=== PATIENT | female | born 1940 | race Two or more races ===

== ENCOUNTER 2019-01-06 16:25 | Inpatient (IN) | payer BC, MEDICARE ==
[~2019-01-06] VITALS: Ht 157.5 cm; Wt 90.8 kg
--- NOTE | 2019-01-06 16:48 | NUR ---
ED Nurse Note: Pt BIBA from [facility] Conv. due to abnormal abnormal labs: Procalcitonin 0.05, Creatinine 1.95, Sodium 164, Albumin 2.9, and BUN/Creatinine Ratio 31.8. Lab was run yesterday 01/05/19. AOx0, pt on NC 3L. Vital signs stable hemanth. Will cont to monitor.
[2019-01-06] MEDS ORDERED: LISINOPRIL40 MG ORAL (17:01)
[2019-01-06] MEDS ORDERED: CARVEDILOL12.5 MG ORAL (17:01)
[2019-01-06] MEDS ORDERED: CATAPRES0.1 MG ORAL (17:01)
[2019-01-06] MEDS ORDERED: TYLENOL EXTRA500 MG ORAL (17:01)
--- NOTE | 2019-01-06 17:05 | NUR ---
ED Nurse Note: optical technician at bedside for line insertion.
[2019-01-06 17:15] VITALS: BP 116/69
--- NOTE | 2019-01-06 17:22 | Diagnostic Imaging Report ---
Indication: Shortness of breath Technique: One view of the chest Comparison: none Findings: There is a left chest pacemaker, with an orphaned lead as well as epicardial leads. Surgical clips are seen in the left axilla. The heart is borderline enlarged. The lungs demonstrate possible hazy infiltrate in left perihilar region Impression: Possible left perihilar infiltrate Borderline cardiomegaly Other findings as noted
[2019-01-06] MEDS ORDERED: IBUPROFEN600 MG ORAL ×2 (17:25)
[2019-01-06] MEDS ORDERED: ARICEPT10 MG ORAL (17:25)
[2019-01-06] MEDS ORDERED: LEXAPRO10 MG ORAL (17:25)
[2019-01-06] MEDS ORDERED: CARVEDILOL25 MG ORAL (17:25)
[2019-01-06] MEDS ORDERED: LIPITOR10 MG ORAL (17:29)
[2019-01-06] MEDS ORDERED: SEROQUEL25 MG ORAL (17:29)
[2019-01-06] MEDS ORDERED: ISOSORBIDE MONO60 M1 PO (17:29)
[2019-01-06] MEDS ORDERED: FUROSEMIDE40 MG ORAL (17:29)
[2019-01-06 17:56] LABS: HEMATOCRIT 31.9 % (37.0-47.0); HEMOGLOBIN 9.7 G/DL (12.0-16.0); INR 1.1 (0.9-1.1); MEAN CORPUSCULAR VOLUME 104 FL (80-99); PLATELET COUNT 38 K/UL (150-450); RED BLOOD COUNT 3.07 M/UL (4.20-5.40); RED CELL DISTRIBUTION WIDTH 17.3 % (11.6-14.8)
[2019-01-06 18:13] LABS: ALANINE AMINOTRANSFERASE 40 U/L (12-78); ALBUMIN 2.4 G/DL (3.4-5.0); ALBUMIN/GLOBULIN RATIO 0.5 (1.0-2.7); ALKALINE PHOSPHATASE 103 U/L (46-116); ANION GAP 12 mmol/L (5-15); ASPARTATE AMINO TRANSFERASE 41 U/L (15-37); BILIRUBIN,TOTAL 0.7 MG/DL (0.2-1.0); BLOOD UREA NITROGEN 70 mg/dL (7-18); CALCIUM 9.5 MG/DL (8.5-10.1); CARBON DIOXIDE 24 MMOL/L (21-32); CHLORIDE 129 MMOL/L (98-107); CKMB 3.5 NG/ML (0.0-3.6); CREATINE KINASE 28 U/L (26-308); CREATININE 2.3 MG/DL (0.55-1.30); POTASSIUM 3.9 MMOL/L (3.5-5.1)
[2019-01-06 18:14] LABS: SODIUM 165 MMOL/L (136-145)
[2019-01-06 18:23] LABS: APPEARANCE,URINE CLOUDY; BILIRUBIN, URINE NEGATIVE (NEGATIVE); GLUCOSE, URINE (UA) NEGATIVE (NEGATIVE); KETONES,URINE NEGATIVE (NEGATIVE); LEUKOCYTE ESTERASE ,URINE 3+ (NEGATIVE); NITRITE,URINE NEGATIVE (NEGATIVE); PH,URINE 6 (4.5-8.0); PROTEIN,URINE 3+ (NEGATIVE); UROBILINOGEN,URINE 1 MG/DL (0.0-1.0)
[2019-01-06 18:33] LABS: COLOR,URINE YELLOW
--- NOTE | 2019-01-06 18:47 | General Progress Note ---
Subjective Allergies: Coded Allergies: No Known Allergies (Unverified , 01/06/19) Subjective [facility] An independent Hospitalist group, where every patient is our [facility] Internal Medicine and Hospitalist Overnight Note Please contact us at Please text me on Voalte from 8a-6p regarding any patient questions Please text "[email or web address]" on Voalte from 6p-8a Case discussed with ED Physician. Chart, labs, imaging, vitals and other flowsheets reviewed. Patient presents with gen weakness, hypernatremia and pancytopenia. Plan overnight will be admitt o [facility] for q2H Na check and IVF, and neuro monitoring. Pending repeat CT head by ED given history of SDH. Consults called in AM will be neuro, heme onc, and nephro. Full admission orders completed. Full and complete H+P to follow Time of note may not reflect time of encounter. Signed: Migdalia Heller DO [facility] Pager: [phone] Objective Last 24 Hour Vital Signs Date Time Temp Pulse Resp B/P (MAP) Pulse Ox O2 Delivery O2 Flow Rate FiO2 01/06/19 17:15 98.2 71 15 116/69 100 Nasal Cannula 4.0 01/06/19 16:26 98.2 74 18 109/63 98 Nasal Cannula 4.0 Laboratory Tests 01/06/19 17:25: White Blood Count 4.0L, Red Blood Count 3.07L, Hemoglobin 9.7L, Hematocrit 31.9L , Mean Corpuscular Volume 104H, Mean Corpuscular Hemoglobin 31.7H, Mean Corpuscular Hemoglobin Concent 30.4L, Red Cell Distribution Width 17.3H, Platelet Count 38L, Mean Platelet Volume 11.3H, Neutrophils (%) (Auto) , Lymphocytes (%) (Auto) , Monocytes (%) (Auto) , Eosinophils (%) (Auto) , Basophils (%) (Auto) , Neutrophils % (Manual) [Pending], Lymphocytes % (Manual) [Pending], Platelet Estimate [Pending], Platelet Morphology [Pending], Prothrombin Time 11.8H, Prothromb Time International Ratio 1.1, Activated Partial Thromboplast Time 38H, Sodium Level 165*H, Potassium Level 3.9, Chloride Level 129H, Carbon Dioxide Level 24, Anion Gap 12, Blood Urea Nitrogen 70H, Creatinine 2.3H, Estimat Glomerular Filtration Rate , Glucose Level 111H, Lactic Acid Level 1.30, Calcium Level 9.5, Phosphorus Level 4.0, Magnesium Level 2.8H, Total Bilirubin 0.7, Aspartate Amino Transf (AST/SGOT) 41H, Alanine Aminotransferase (ALT/SGPT) 40, Alkaline Phosphatase 103, Total Creatine Kinase 28, Creatine Kinase MB 3.5, Creatine Kinase MB Relative Index 12.5, Troponin I 0.013, Total Protein 7.0, Albumin 2.4L, Globulin 4.6, Albumin/Globulin Ratio 0.5L, Lipase 105 01/06/19 17:35: Urine Color Yellow, Urine Appearance Cloudy, Urine pH 6, Urine Specific [place] 1.015, Urine Protein 3+H, Urine Glucose (UA) Negative, Urine Ketones Negative, Urine Blood 5+H, Urine Nitrite Negative, Urine Bilirubin Negative, Urine Urobilinogen 1H, Urine Leukocyte Esterase 3+H, Urine RBC [Pending], Urine WBC [ Pending], Urine Squamous Epithelial Cells [Pending], Urine Bacteria [Pending] Height (Feet): 5 Height (Inches): 2.00 Weight (Pounds): 140 Migdalia Heller DO Jan 06, 2019 18:47
[2019-01-06 18:57] VITALS: BP 118/95
--- NOTE | 2019-01-06 19:06 | NUR ---
HAND-OFF: Report given to RADAMES Kingsley.
[2019-01-06] MEDS ORDERED: Donepezil 10mg tab ORAL SCH (21:00)
[2019-01-06 21:25] VITALS: BP 118/95
--- NOTE | 2019-01-06 21:25 | NUR ---
ER Nurse Note: Report given to RADAMES Crenshaw in tele for continuity of care. VSS, no signs of distress. IV patent. Pt not complaining of pain, all belongings with pt.
--- NOTE | 2019-01-06 22:00 | NUR ---
NURSE NOTES: RECEIVED TELEPHONE REPORT FROM ULICES CRUM. PT IS X0, NONVERBAL, MOANS DURING MOVEMENT. WHOLESALE PARTS SALESPERSON ON SHOWING AFIB/AFLUTTER/BBB/SR. IMPLANTED DEFIBRILLATOR ON THE LEFT CHEST NOTED; V PACING AND CAPTURING. 2L NC; SATING WELL. ORDER FOR NPO W/ ORAL MEDS. I WILL KEEP PT NPO D/T LETHARGY AND UNABLE TO FOLLOW COMMANDS. PT IS INCONTINENT, PLACED PURWICK. SKIN IS CLEAN AND DRY. SACRAL STAGE 2 APPROX NOTED ALONG W/ RIGHT WRIST/HAND SKIN TEAR. LAC 20G AND LF 24 NOTED. D5 RUNNING AT 70 ML/HR; IV SITE ASYMPTOMATIC. ORDER RECEIVED FROM SURFACE PLATE FINISHER PHYSICIAN. UNABLE TO OBTAIN TEMPERATURE, APPLIED BAIRHUGGER TO RAISE TEMP, OTHERWISE PT ASYMPTOMATIC, RESTING, VSS, APPEARS COMFORTABLE, NO S/S OF DISTRESS. BED IS LOCKED IN LOWEST POSITION, SIDE RAILS X3, BED ALARM ON, CALL RUDOLPH WITHIN REACH. WILL CONTINUE TO MONITOR AND FOLLOW PLAN OF CARE.
--- NOTE | 2019-01-06 23:00 | NUR ---
NURSE NOTES: CALLED AND SPOKE WITH THERAPIST RADIATION PHYSICIAN REGARDING LABS AND PO MEDICATION. WAS TOLD TO NON-ADMIN MEDS FOR NOW. LABS OK PER MD. WILL CONTINUE TO MONITOR AND FOLLOW PLAN OF CARE.
--- NOTE | 2019-01-06 23:42 | Emergency Room Report ---
History of Present Illness General Chief Complaint: Abnormal Labs Source: Family Member, Medical Record Present Illness HPI Patient is a 78-year-old female presented after increased generalized weakness and altered mental status. Patient prior history of subdural hematoma. She was noted to have abnormal laboratory testing was sent to the hospital for further evaluation and treatment. Patient was noted to have hyponatremia on laboratory testing and was sent to the emergency department for further evaluation correction. Patient was noted to be DNR Allergies: Coded Allergies: No Known Allergies (Unverified , 01/06/19) Patient History Past Medical History: see triage record Reviewed Nursing Documentation: PMH: Agreed; PSxH: Agreed Nursing Documentation-PMH Past Medical History: No History, Except For Hx Cardiac Problems: No - CHF Hx Hypertension: Yes History Of Psychiatric Problem: Yes - dementia Review of Systems All Other Systems: limited - by mental status Physical Exam Vital Signs Date Time Temp Pulse Resp B/P (MAP) Pulse Ox O2 Delivery O2 Flow Rate FiO2 01/06/19 16:26 98.2 74 18 109/63 98 Nasal Cannula 4.0 General Appearance: lethargic, Chronically Ill ENT: dry mucus membranes Neck: limited range of motion Respiratory: chest non-tender, crackles Cardiovascular #1: normal inspection Gastrointestinal: normal inspection, non tender Musculoskeletal: normal inspection Neurologic: aphasia, motor weakness Psychiatric: depressed affect Medical Decision Making Diagnostic Impression: Primary Impression: Hypernatremia Additional Impressions: Subdural hematoma Dehydration ER Course Patient presented for generalized weakness. Differential diagnosis included was not limited to anemia, urinary tract infection, electrolyte abnormality, hypothyroidism, myocardial infarction, myasthenia gravis, dehydration, among others. Because of complexity of patient's case laboratory testing and imaging studies were ordered. Patient was noted to have increased confusion and lethargy. CT imaging was ordered and was noted to have some subdural fluid without evident shift or severe mass-effect. Patient was noted to be markedly hyponatremic. Patient was started on IV fluids. Dr. Heller was contacted for [facility] for inpatient management due to primary care group. I discussed the patient's CODE STATUS with patient has been in patient was not to be intubated or have any brain surgery. Labs Test 01/06/19 17:25 01/06/19 17:35 White Blood Count 4.0 K/UL (4.8-10.8) Red Blood Count 3.07 M/UL (4.20-5.40) Hemoglobin 9.7 G/DL (12.0-16.0) Hematocrit 31.9 % (37.0-47.0) Mean Corpuscular Volume 104 FL (80-99) Mean Corpuscular Hemoglobin 31.7 PG (27.0-31.0) Mean Corpuscular Hemoglobin Concent 30.4 G/DL (32.0-36.0) Red Cell Distribution Width 17.3 % (11.6-14.8) Platelet Count 38 K/UL (150-450) Mean Platelet Volume 11.3 FL (6.5-10.1) Neutrophils (%) (Auto) % (45.0-75.0) Lymphocytes (%) (Auto) % (20.0-45.0) Monocytes (%) (Auto) % (1.0-10.0) Eosinophils (%) (Auto) % (0.0-3.0) Basophils (%) (Auto) % (0.0-2.0) Differential Total Cells Counted 100 Neutrophils % (Manual) 81 % (45-75) Lymphocytes % (Manual) 8 % (20-45) Monocytes % (Manual) 7 % (1-10) Eosinophils % (Manual) 1 % (0-3) Basophils % (Manual) 0 % (0-2) Band Neutrophils 3 % (0-8) Platelet Estimate Decreased Platelet Morphology Normal Hypochromasia 1+ Anisocytosis 1+ Prothrombin Time 11.8 SEC (9.30-11.50) Prothromb Time International Ratio 1.1 (0.9-1.1) Activated Partial Thromboplast Time 38 SEC (23-33) Potassium Level 3.9 MMOL/L (3.5-5.1) Chloride Level 129 MMOL/L (98-107) Carbon Dioxide Level 24 MMOL/L (21-32) Anion Gap 12 mmol/L (5-15) Blood Urea Nitrogen 70 mg/dL (7-18) Creatinine 2.3 MG/DL (0.55-1.30) Estimat Glomerular Filtration Rate mL/min (>60) Glucose Level 111 MG/DL (74-106) Lactic Acid Level 1.30 mmol/L (0.4-2.0) Calcium Level 9.5 MG/DL (8.5-10.1) Phosphorus Level 4.0 MG/DL (2.5-4.9) Magnesium Level 2.8 MG/DL (1.8-2.4) Total Bilirubin 0.7 MG/DL (0.2-1.0) Aspartate Amino Transf (AST/SGOT) 41 U/L (15-37) Alanine Aminotransferase (ALT/SGPT) 40 U/L (12-78) Alkaline Phosphatase 103 U/L (46-116) Total Creatine Kinase 28 U/L (26-308) Creatine Kinase MB 3.5 NG/ML (0.0-3.6) Creatine Kinase MB Relative Index 12.5 Troponin I 0.013 ng/mL (0.000-0.056) Total Protein 7.0 G/DL (6.4-8.2) Albumin 2.4 G/DL (3.4-5.0) Globulin 4.6 g/dL Albumin/Globulin Ratio 0.5 (1.0-2.7) Lipase 105 U/L (73-393) Urine Color Yellow Urine Appearance Cloudy Urine pH 6 (4.5-8.0) Urine Specific [place] 1.015 (1.005-1.035) Urine Protein 3+ (NEGATIVE) Urine Glucose (UA) Negative (NEGATIVE) Urine Ketones Negative (NEGATIVE) Urine Blood 5+ (NEGATIVE) Urine Nitrite Negative (NEGATIVE) Urine Bilirubin Negative (NEGATIVE) Urine Urobilinogen 1 MG/DL (0.0-1.0) Urine Leukocyte Esterase 3+ (NEGATIVE) Urine RBC 10-15 /HPF (0 - 2) Urine WBC 5-10 /HPF (0 - 2) Urine Squamous Epithelial Cells Few /LPF (NONE/OCC) Urine Bacteria Many /HPF (NONE) Urine Osmolality 463 mOsm/kg (429-449) Last Vital Signs Date Time Temp Pulse Resp B/P (MAP) Pulse Ox O2 Delivery O2 Flow Rate FiO2 01/06/19 18:57 98.2 70 16 118/95 100 Nasal Cannula 4.0 Status: improved Disposition: HOME, SELF-CARE Condition: Stable Referrals: Bear Herron MD (PCP) Douglas Garcia MD Jan 06, 2019 23:42
[2019-01-07] VITALS: BP 115/72
[2019-01-07] MEDS ORDERED: cefTRIAXone 1 GM in D5W 55 ML IVPB SCH ×2
[2019-01-07 04:00] VITALS: BP 90/52
[2019-01-07 06:12] LABS: HEMATOCRIT 28.8 % (37.0-47.0); HEMOGLOBIN 8.7 G/DL (12.0-16.0); MEAN CORPUSCULAR VOLUME 103 FL (80-99); PLATELET COUNT 34 K/UL (150-450); RED BLOOD COUNT 2.79 M/UL (4.20-5.40); RED CELL DISTRIBUTION WIDTH 17.5 % (11.6-14.8); WHITE BLOOD COUNT 3.9 K/UL (4.8-10.8)
[2019-01-07 07:04] LABS: ANION GAP 10 mmol/L (5-15); BLOOD UREA NITROGEN 70 mg/dL (7-18); CARBON DIOXIDE 24 MMOL/L (21-32); CHLORIDE 129 MMOL/L (98-107); CREATININE 2.3 MG/DL (0.55-1.30); POTASSIUM 3.5 MMOL/L (3.5-5.1)
[2019-01-07 07:07] LABS: SODIUM 163 MMOL/L (136-145)
--- NOTE | 2019-01-07 07:22 | NUR ---
HAND-OFF: Report given to RADAMES CABRAL.
--- NOTE | 2019-01-07 07:30 | NUR ---
NURSE NOTES: Received report from Enio Rojo RN. Patient asleep in bed, responsive to tactile stimuli, nonverbal. Receiving O2 via nasal cannula @ 2 L/min, respirations even and unlabored. Patient NPO at this time. Female external catheter in place and attached to low, continuous suction. Left AC 20g IV site infusing D5W @ 70 cc/hr and left foot 20g saline lock patent and asymptomatic. Ofelia hugger in place. Bed locked in lowest position with side rails up x 3. All needs attended to. Call light within reach. Will continue to monitor.
--- NOTE | 2019-01-07 07:57 | History and Physical ---
History of Present Illness General Date patient seen: Jan 07, 2019 Time patient seen: 07:30 Reason for Hospitalization: Abnormal Labs Present Illness HPI 78 year old woman (DNR/DNI) with history of severe dementia, HTN, CAD, chronic sCHF s/p AICD, suspected CAD, SDH, who presents from [facility] for evaluation of lethargy and hyponatremia. Here she was found to by hypothermic to 93 degrees with lethargy and sodium of 165. She was admitted to [facility] for acute metabolic encephalopathy, severe sepsis, suspected HCAP. This morning patient is lethargic, unable to be aroused, moves extremities to painful stimuli. UInformation obtained from medical record as patient is markedly encephalopathy. Social History: Unable to obtain due to encephalopathy Family History:Unable to obtain due to encephalopathy Allergies: Coded Allergies: No Known Allergies (Unverified , 01/06/19) Medication History Scheduled Atorvastatin Calcium* (Lipitor*), 10 MG ORAL DAILY, (Reported) Carvedilol* (Carvedilol*), 25 MG ORAL BID, (Reported) Donepezil Hcl* (Aricept*), 10 MG ORAL QHS, (Reported) Escitalopram Oxalate* (Lexapro*), 10 MG ORAL DAILY, (Reported) Furosemide* (Lasix*), 40 MG ORAL DAILY, (Reported) Isosorbide Mononitrate (Isosorbide Mononitrate Er), 60 MG PO BID, (Reported) Quetiapine Fumarate* (Seroquel*), 25 MG ORAL THREE TIMES A DAY, (Reported) Scheduled PRN Ibuprofen* (Motrin*), 800 MG ORAL THREE TIMES A DAY PRN for Per rx protocol, ( Reported) Discontinued Medications Acetaminophen* (Tylenol Extra Strength*), 650 MG ORAL Q6H PRN for Mild Pain/ Temp > 100.5, (Reported) Discontinued Reason: Pt stopped taking med Carvedilol* (Carvedilol*), 12.5 MG ORAL EVERY 12 HOURS, (Reported) Discontinued Reason: Prescription changed Clonidine Hcl* (Catapres*), 0.1 MG ORAL EVERY 6 HOURS, (Reported) Discontinued Reason: Pt stopped taking med Lisinopril* (Lisinopril*), 40 MG ORAL DAILY, (Reported) Discontinued Reason: Pt stopped taking med Patient History Healthcare decision maker MYKE MORGAN Resuscitation status Do Not Resuscitate Advanced Directive on File No Review of Systems ROS Narrative Unable to obtain due to encephalopathy Physical Exam General Appearance: lethargic Lines, tubes and drains: peripheral HEENT: normocephalic, atraumatic Neck: normal alignment Respiratory/Chest: lungs clear, normal breath sounds Cardiovascular/Chest: normal peripheral pulses, normal rate Abdomen: non tender, soft, no organomegaly Extremities: non-tender, normal inspection, no calf tenderness Last 24 Hour Vital Signs Date Time Temp Pulse Resp B/P (MAP) Pulse Ox O2 Delivery O2 Flow Rate FiO2 01/07/19 06:00 96.0 01/07/19 04:00 70 01/07/19 04:00 Nasal Cannula 2.0 01/07/19 04:00 70 15 90/52 (65) 97 01/07/19 00:12 Nasal Cannula 2.0 01/07/19 00:00 70 15 115/72 (86) 99 01/07/19 00:00 70 01/07/19 00:00 Nasal Cannula 2.0 01/06/19 22:18 70 01/06/19 21:25 98.2 72 16 118/95 100 Nasal Cannula 2.0 01/06/19 21:25 98.2 72 16 118/95 100 Nasal Cannula 2.0 01/06/19 18:57 98.2 70 16 118/95 100 Nasal Cannula 4.0 01/06/19 17:15 98.2 71 15 116/69 100 Nasal Cannula 4.0 01/06/19 16:26 98.2 74 18 109/63 98 Nasal Cannula 4.0 Intake and Output 01/06/19 01/07/19 19:00 07:00 Intake Total 1000 ml 545 ml Balance 1000 ml 545 ml Intake IV Total 1000 ml 545 ml # Voids 1 2 # Bowel Movements 3 Laboratory Tests Test 01/06/19 17:25 01/06/19 17:35 01/07/19 06:00 White Blood Count 4.0 K/UL (4.8-10.8) L 3.9 K/UL (4.8-10.8) L Red Blood Count 3.07 M/UL (4.20-5.40) L 2.79 M/UL (4.20-5.40) L Hemoglobin 9.7 G/DL (12.0-16.0) L 8.7 G/DL (12.0-16.0) L Hematocrit 31.9 % (37.0-47.0) L 28.8 % (37.0-47.0) L Mean Corpuscular Volume 104 FL (80-99) H 103 FL (80-99) H Mean Corpuscular Hemoglobin 31.7 PG (27.0-31.0) H 31.1 PG (27.0-31.0) H Mean Corpuscular Hemoglobin Concent 30.4 G/DL (32.0-36.0) L 30.1 G/DL (32.0-36.0) L Red Cell Distribution Width 17.3 % (11.6-14.8) H 17.5 % (11.6-14.8) H Platelet Count 38 K/UL (150-450) L 34 K/UL (150-450) L Mean Platelet Volume 11.3 FL (6.5-10.1) H 11.5 FL (6.5-10.1) H Neutrophils (%) (Auto) % (45.0-75.0) % (45.0-75.0) Lymphocytes (%) (Auto) % (20.0-45.0) % (20.0-45.0) Monocytes (%) (Auto) % (1.0-10.0) % (1.0-10.0) Eosinophils (%) (Auto) % (0.0-3.0) % (0.0-3.0) Basophils (%) (Auto) % (0.0-2.0) % (0.0-2.0) Differential Total Cells Counted 100 Neutrophils % (Manual) 81 % (45-75) H Pending Lymphocytes % (Manual) 8 % (20-45) L Pending Monocytes % (Manual) 7 % (1-10) Eosinophils % (Manual) 1 % (0-3) Basophils % (Manual) 0 % (0-2) Band Neutrophils 3 % (0-8) Platelet Estimate Decreased L Pending Platelet Morphology Normal Pending Hypochromasia 1+ Anisocytosis 1+ Prothrombin Time 11.8 SEC (9.30-11.50) H Prothromb Time International Ratio 1.1 (0.9-1.1) Activated Partial Thromboplast Time 38 SEC (23-33) H Sodium Level 165 MMOL/L (136-145) *H Pending 163 MMOL/L (136-145) *H Potassium Level 3.9 MMOL/L (3.5-5.1) 3.5 MMOL/L (3.5-5.1) Chloride Level 129 MMOL/L (98-107) H 129 MMOL/L (98-107) H Carbon Dioxide Level 24 MMOL/L (21-32) 24 MMOL/L (21-32) Anion Gap 12 mmol/L (5-15) 10 mmol/L (5-15) Blood Urea Nitrogen 70 mg/dL (7-18) H 70 mg/dL (7-18) H Creatinine 2.3 MG/DL (0.55-1.30) H 2.3 MG/DL (0.55-1.30) H Estimat Glomerular Filtration Rate mL/min (>60) mL/min (>60) Glucose Level 111 MG/DL (74-106) H 152 MG/DL (74-106) H Lactic Acid Level 1.30 mmol/L (0.4-2.0) Calcium Level 9.5 MG/DL (8.5-10.1) 9.0 MG/DL (8.5-10.1) Phosphorus Level 4.0 MG/DL (2.5-4.9) Magnesium Level 2.8 MG/DL (1.8-2.4) H 2.5 MG/DL (1.8-2.4) H Total Bilirubin 0.7 MG/DL (0.2-1.0) Aspartate Amino Transf (AST/SGOT) 41 U/L (15-37) H Alanine Aminotransferase (ALT/SGPT) 40 U/L (12-78) Alkaline Phosphatase 103 U/L (46-116) Total Creatine Kinase 28 U/L (26-308) Creatine Kinase MB 3.5 NG/ML (0.0-3.6) Creatine Kinase MB Relative Index 12.5 Troponin I 0.013 ng/mL (0.000-0.056) Total Protein 7.0 G/DL (6.4-8.2) Albumin 2.4 G/DL (3.4-5.0) L Globulin 4.6 g/dL Albumin/Globulin Ratio 0.5 (1.0-2.7) L Lipase 105 U/L (73-393) Urine Color Yellow Urine Appearance Cloudy Urine pH 6 (4.5-8.0) Urine Specific [place] 1.015 (1.005-1.035) Urine Protein 3+ (NEGATIVE) H Urine Glucose (UA) Negative (NEGATIVE) Urine Ketones Negative (NEGATIVE) Urine Blood 5+ (NEGATIVE) H Urine Nitrite Negative (NEGATIVE) Urine Bilirubin Negative (NEGATIVE) Urine Urobilinogen 1 MG/DL (0.0-1.0) H Urine Leukocyte Esterase 3+ (NEGATIVE) H Urine RBC 10-15 /HPF (0 - 2) H Urine WBC 5-10 /HPF (0 - 2) H Urine Squamous Epithelial Cells Few /LPF (NONE/OCC) Urine Bacteria Many /HPF (NONE) H Urine Osmolality 463 mOsm/kg (429-449) H Microbiology Date/Time Source Procedure Growth Status 01/06/19 17:35 Urine,Clean Catch Urine Culture - Preliminary Gram Negative Bacillus 1 Resulted Height (Feet): 5 Height (Inches): 2.00 Weight (Pounds): 187 Medications Current Medications Medications (Trade) Dose Ordered Sig/Nuria Route PRN Reason Start Time Stop Time Status Last Admin Dose Admin Atorvastatin Calcium (Lipitor) 10 mg DAILY ORAL 01/07/19 09:00 02/06/19 08:59 Dextrose 1,000 ml @ 70 mls/hr [id number] IV 01/06/19 19:48 02/05/19 19:47 01/06/19 23:07 Dextrose (Dextrose 50%) 25 ml Q30M PRN IV Hypoglycemia 01/06/19 19:00 02/05/19 18:59 Dextrose (Dextrose 50%) 50 ml Q30M PRN IV Hypoglycemia 01/06/19 19:00 02/05/19 18:59 Donepezil HCl (Aricept) 10 mg QHS ORAL 01/06/19 21:00 02/05/19 20:59 Escitalopram Oxalate (Lexapro) 10 mg DAILY ORAL 01/07/19 09:00 02/06/19 08:59 Ibuprofen (Motrin) 800 mg TIDPRN PRN ORAL For Pain 01/06/19 19:00 02/05/19 18:59 Meropenem 1 gm/ Sodium Chloride 55 ml @ 110 mls/hr Q8HR IVPB 01/07/19 08:00 01/12/19 07:59 UNV Quetiapine Fumarate (SEROquel) 25 mg THREE TIMES A DAY ORAL 01/07/19 09:00 02/06/19 08:59 Vancomycin HCl (Vanco rx to dose) 1 ea DAILY PRN MISC Per rx protocol 01/07/19 08:00 02/06/19 07:59 UNV Assessment/Plan Assessment/Plan #Severe Sepsis #Likely HCAP #Acute metabolic encephalopathy superimposed on severe dementia --admit to medical service -broaden IV antibiotics to vanco and meropenem -continue Bare-Hugger -check blood cultures, serial lactate and PCT -stop all antihypertensives -ID consulted #Hypernatremia -continue D5W -Nephrology consulted #Chronic sCHF s/p AICD #Atrial fibrillation #HTN #CAD -hold all anti-hypertensives -consult Cardiology VTE PPx Heparin SC DNR/DNI I spent 70 minutes on this patient's case, and 35 minutes was dedicated to counseling and/or care coordination. Rome Diamond MD Jan 07, 2019 07:57
[2019-01-07 08:00] VITALS: BP 103/47
--- NOTE | 2019-01-07 08:12 | NUR ---
NURSE NOTES: Patient currently NPO, unable to follow commands, hence unsafe to give meds PO. Per Dr. Mederos, patient will not have NGT at this time. Will non-admin meds.
[2019-01-07 08:22] LABS: ALANINE AMINOTRANSFERASE 40 U/L (12-78); ALBUMIN 2.1 G/DL (3.4-5.0); ALKALINE PHOSPHATASE 89 U/L (46-116); ASPARTATE AMINO TRANSFERASE 35 U/L (15-37); BILIRUBIN,DIRECT 0.2 MG/DL (0.0-0.3); BILIRUBIN,TOTAL 0.5 MG/DL (0.2-1.0)
[2019-01-07] MEDS ORDERED: Imdur 30mg tab ORAL SCH (09:00)
[2019-01-07] MEDS ORDERED: Carvedilol 25mg Tab ORAL SCH (09:00)
--- NOTE | 2019-01-07 09:11 | Diagnostic Imaging Report ---
Indications: Altered mental status Technique: Spiral acquisitions obtained through the brain. Angled axial and coronal 5 x 5 mm slices were reconstructed. Total dose length product 1414.54 mGycm. CTDI vol(s) 70.38 mGy. Dose reduction achieved using automated exposure control Comparison: None. Findings: There is a subdural hematoma running along the right side of the falx. This measures approximately 4 mm in thickness, does not result in any significant mass effect. No other evidence of acute intracranial bleed. No mass effect elsewhere. There is age-related enlargement of the ventricles and extra axial CSF spaces. There is a focus of cortical encephalomalacia in the high right parietal lobe. There is periventricular deep white matter chronic ischemic change. The included orbits are unremarkable. There is ethmoid sinus mucosal disease. The calvarium is intact. There is bilateral mastoid disease. Impression: 4 mm thick parafalcine acute subdural hematoma. This does not result in any significant mass effect. Right parietal cortical encephalomalacia, consistent with old infarct Other chronic and age-related changes as described Critical value findings phoned to emergency room by [facility] teleradiology service at 1842 on 01/06/[address] scanner at [facility] is accredited by the [employer] and the scans are performed using protocols designed to limit radiation exposure to as low as reasonably achievable to attain images of sufficient resolution adequate for diagnostic evaluation.
--- NOTE | 2019-01-07 10:33 | NUR ---
REHAB MED PT NOTE CONSULT MARGARETTE CURIEL NOT COMPLTED, PATIENT NOT APPROPRIATE FOR HVAC JOURNEYMAN DURING STAY. DC PT ORDER. GRACE PICHARDO PT DPT Addendum: 01/07/19 at 1034 by GRACE PICHARDO PT PATIENT LETHARGIC AND NO COMMAND FOLLOWING.
[2019-01-07] MEDS ORDERED: Vancomycin 1250mg/D5W 275ml IVPB SCH (11:00)
[2019-01-07 12:00] VITALS: BP 112/42
[2019-01-07] MEDS: Meropenem 500 MG in NS 55 ML IVPB SCH (12:00)
[2019-01-07 12:06] LABS: APPEARANCE,URINE SLIGHTLY CLOUDY; BILIRUBIN, URINE NEGATIVE (NEGATIVE); GLUCOSE, URINE (UA) NEGATIVE (NEGATIVE); KETONES,URINE NEGATIVE (NEGATIVE); LEUKOCYTE ESTERASE ,URINE 3+ (NEGATIVE); NITRITE,URINE NEGATIVE (NEGATIVE); PH,URINE 5 (4.5-8.0); PROTEIN,URINE 2+ (NEGATIVE); UROBILINOGEN,URINE 1 MG/DL (0.0-1.0)
[2019-01-07 12:35] LABS: COLOR,URINE YELLOW
--- NOTE | 2019-01-07 13:51 | Consultation ---
Consult Note Consult Note asked to evaluate for renal failure and electrolyte imbalances Patient is a 78-year-old female presented after increased generalized weakness and altered mental status. Patient prior history of subdural hematoma. She was noted to have abnormal laboratory testing was sent to the hospital for further evaluation and treatment. Patient was noted to have hyponatremia on laboratory testing and was sent to the emergency department for further evaluation correction. Patient was noted to be DNR No Known Allergies (Unverified , 01/06/19) Past Medical History: No History, Except For Hx Cardiac Problems: No - CHF Hx Hypertension: Yes History Of Psychiatric Problem: Yes - dementia Assessment/Plan acute Renal Failure Sepsis / UTI / Pneumonia Acute metabolic Encephalopathy Hypernatremia AICD AT FIB CAD HTN presents with Low BP Anemia DNR DNI Free water administration watch for chf pendleton hold mind altering meds protonix IV DC Motrin !!! Noe Wells MD Jan 07, 2019 13:51
[2019-01-07] MEDS ORDERED: LORazepam Inj 2mg/ml 1ml IV PRN (14:00)
--- NOTE | 2019-01-07 14:38 | NUR ---
INSTALLER INTERIOR ASSEMBLIESCPA TAX 78 YO FEMALE BIBA FROM [facility] TO ER CC POOR ORAL INTAKE SI: SEPSIS,DEHYDRATION, HYPERNATREMIA T. 98.3 HR 74 RR 18 B/P 109/63 4L NC NA 165 BUN 70 CR 2.3 MG 2.8 URINE OS 463 UA+PROTEIN,BLOOD,UROBILINOGEN,WBC,RBC,BACTERIA CXR= POSSIBLE LEFT PERIHILAR INFILTRATES HEAD CT+ 4MM THICK PARAFALCINE ACUTE SUBDURAL HEMATOMA. IS: IV BOLUS NS X 1 LITER ADMITTED TO STEP DOWN @ 2124 STEP DOWN STATUS DCP RETURN TO [facility]
--- NOTE | 2019-01-07 15:10 | NUR ---
ST NOTE: BEDSIDE SWALLOW EVAL/CONSULT RECEIVED BEDSIDE SWALLOW EVAL ORDER CHART REVIEWED PRIOR THE EVALUATION COMPLETED SWALLOW CONSULT PT IS A 78-YEAR-OLD FEMALE(PROBABLY [employer]-SPEAK[employer]) WHO WAS ADMITTED DUE TO SEPSIS AND DEHYDRATION, AMS. PER MD NOTE, SUSPECTED HCAP. DYSPHAGIA RISK FACTORS: AMS, POOR PO INTAKE, FAILURE TO THRIVE, SEVERE DEMENTIA W/VIOLENT BEHAVIOR, HTN, H/O CVA, L CHEST PACEMAKER, CHF, ENCEPHALITIS PER HEAD CT: 8 MM SUBDURAL OVERLYING L PARIETAL LOBE. 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 PER CXR: POSS L PERIHILAR INFILTRATE, AND BORDERLINE CARDIOMEGALY. PLOF: PT RESIDES AT [facility]. PER CHART, PT WAS ON NCS, JUNI MOIST PUREE WITH THIN LIQUIDS AT TSP LEVEL PER CHART, PT IS DNR/DNI, SELECTIVE TX, NO ARTIFICIAL MEANS OF NUTRITION, INCLUDING FEEDING TUBES. (PER PT'S , PT'S WISH DOESN'T WANT ANY TUBE FEEDING). CURRENT STATUS: PT SEEN AT BEDSIDE IN PM. AROUSABLE BUT UNABLE TO MAINTAIN ALERTNESS A PERIOD OF TIME. PT WITH NC(2L). OXYGEN LEVEL: 98%. PER PT'S , PT'S MENTAL STATUS HAS NOT BEEN GOOD. PER MISHA CRUM, PT'S SODIUM IS HIGH(161). 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 UNABLE TO GIVE PO AT THIS TIME. HAS HIGH (SILENT) ASPIRATION RISK SECONDARY TO H/O SEVERE DEMENTIA AND CURRENT POSS L PERIHILAR INFILTRATE. RECOMMENDATIONS: 1. CONTINUE NPO FOR NOW. 2. SKILLED ST SERVICE TO FOLLOW UP TO RE-ASSESS PO READINESS 3. VIDEOSWALLOW STUDY IF NEEDED. D/W MISHA CRUM. POSTED NPO SIGN.
[2019-01-07 16:00] VITALS: BP 127/65
--- NOTE | 2019-01-07 16:48 | Cardiac Electrophysiology PN ---
Subjective Subjective [id number] Objective Last 24 Hour Vital Signs Date Time Temp Pulse Resp B/P (MAP) Pulse Ox O2 Delivery O2 Flow Rate FiO2 01/07/19 16:00 Nasal Cannula 2.0 01/07/19 12:00 Nasal Cannula 2.0 01/07/19 12:00 96.4 70 19 112/42 (65) 98 01/07/19 12:00 70 01/07/19 08:00 98.1 70 18 103/47 (65) 96 01/07/19 08:00 Nasal Cannula 2.0 01/07/19 08:00 70 01/07/19 06:00 96.0 01/07/19 04:00 70 01/07/19 04:00 Nasal Cannula 2.0 01/07/19 04:00 70 15 90/52 (65) 97 01/07/19 00:12 Nasal Cannula 2.0 01/07/19 00:00 70 15 115/72 (86) 99 01/07/19 00:00 70 01/07/19 00:00 Nasal Cannula 2.0 01/06/19 22:18 70 01/06/19 21:25 98.2 72 16 118/95 100 Nasal Cannula 2.0 01/06/19 21:25 98.2 72 16 118/95 100 Nasal Cannula 2.0 01/06/19 18:57 98.2 70 16 118/95 100 Nasal Cannula 4.0 01/06/19 17:15 98.2 71 15 116/69 100 Nasal Cannula 4.0 Intake and Output 01/06/19 01/07/19 19:00 07:00 Intake Total 1000 ml 615 ml Balance 1000 ml 615 ml Intake IV Total 1000 ml 615 ml # Voids 1 2 # Bowel Movements 3 Laboratory Tests Test 01/06/19 17:25 01/06/19 17:35 01/07/19 06:00 01/07/19 08:55 White Blood Count 4.0 K/UL (4.8-10.8) L 3.9 K/UL (4.8-10.8) L Red Blood Count 3.07 M/UL (4.20-5.40) L 2.79 M/UL (4.20-5.40) L Hemoglobin 9.7 G/DL (12.0-16.0) L 8.7 G/DL (12.0-16.0) L Hematocrit 31.9 % (37.0-47.0) L 28.8 % (37.0-47.0) L Mean Corpuscular Volume 104 FL (80-99) H 103 FL (80-99) H Mean Corpuscular Hemoglobin 31.7 PG (27.0-31.0) H 31.1 PG (27.0-31.0) H Mean Corpuscular Hemoglobin Concent 30.4 G/DL (32.0-36.0) L 30.1 G/DL (32.0-36.0) L Red Cell Distribution Width 17.3 % (11.6-14.8) H 17.5 % (11.6-14.8) H Platelet Count 38 K/UL (150-450) L 34 K/UL (150-450) L Mean Platelet Volume 11.3 FL (6.5-10.1) H 11.5 FL (6.5-10.1) H Neutrophils (%) (Auto) % (45.0-75.0) % (45.0-75.0) Lymphocytes (%) (Auto) % (20.0-45.0) % (20.0-45.0) Monocytes (%) (Auto) % (1.0-10.0) % (1.0-10.0) Eosinophils (%) (Auto) % (0.0-3.0) % (0.0-3.0) Basophils (%) (Auto) % (0.0-2.0) % (0.0-2.0) Differential Total Cells Counted 100 100 Neutrophils % (Manual) 81 % (45-75) H 92 % (45-75) H Lymphocytes % (Manual) 8 % (20-45) L 5 % (20-45) L Monocytes % (Manual) 7 % (1-10) 3 % (1-10) Eosinophils % (Manual) 1 % (0-3) 0 % (0-3) Basophils % (Manual) 0 % (0-2) 0 % (0-2) Band Neutrophils 3 % (0-8) 0 % (0-8) Platelet Estimate Decreased L Decreased L Platelet Morphology Normal Normal Hypochromasia 1+ Anisocytosis 1+ 1+ Prothrombin Time 11.8 SEC (9.30-11.50) H Prothromb Time International Ratio 1.1 (0.9-1.1) Activated Partial Thromboplast Time 38 SEC (23-33) H Sodium Level 165 MMOL/L (136-145) *H Pending 163 MMOL/L (136-145) *H 162 MMOL/L (136-145) *H Potassium Level 3.9 MMOL/L (3.5-5.1) 3.5 MMOL/L (3.5-5.1) Chloride Level 129 MMOL/L (98-107) H 129 MMOL/L (98-107) H Carbon Dioxide Level 24 MMOL/L (21-32) 24 MMOL/L (21-32) Anion Gap 12 mmol/L (5-15) 10 mmol/L (5-15) Blood Urea Nitrogen 70 mg/dL (7-18) H 70 mg/dL (7-18) H Creatinine 2.3 MG/DL (0.55-1.30) H 2.3 MG/DL (0.55-1.30) H Estimat Glomerular Filtration Rate mL/min (>60) mL/min (>60) Glucose Level 111 MG/DL (74-106) H 152 MG/DL (74-106) H Lactic Acid Level 1.30 mmol/L (0.4-2.0) Calcium Level 9.5 MG/DL (8.5-10.1) 9.0 MG/DL (8.5-10.1) Phosphorus Level 4.0 MG/DL (2.5-4.9) Magnesium Level 2.8 MG/DL (1.8-2.4) H 2.5 MG/DL (1.8-2.4) H Total Bilirubin 0.7 MG/DL (0.2-1.0) 0.5 MG/DL (0.2-1.0) Aspartate Amino Transf (AST/SGOT) 41 U/L (15-37) H 35 U/L (15-37) Alanine Aminotransferase (ALT/SGPT) 40 U/L (12-78) 40 U/L (12-78) Alkaline Phosphatase 103 U/L (46-116) 89 U/L (46-116) Total Creatine Kinase 28 U/L (26-308) Creatine Kinase MB 3.5 NG/ML (0.0-3.6) Creatine Kinase MB Relative Index 12.5 Troponin I 0.013 ng/mL (0.000-0.056) Total Protein 7.0 G/DL (6.4-8.2) 6.2 G/DL (6.4-8.2) L Albumin 2.4 G/DL (3.4-5.0) L 2.1 G/DL (3.4-5.0) L Globulin 4.6 g/dL Albumin/Globulin Ratio 0.5 (1.0-2.7) L Lipase 105 U/L (73-393) Urine Color Yellow Urine Appearance Cloudy Urine pH 6 (4.5-8.0) Urine Specific [place] 1.015 (1.005-1.035) Urine Protein 3+ (NEGATIVE) H Urine Glucose (UA) Negative (NEGATIVE) Urine Ketones Negative (NEGATIVE) Urine Blood 5+ (NEGATIVE) H Urine Nitrite Negative (NEGATIVE) Urine Bilirubin Negative (NEGATIVE) Urine Urobilinogen 1 MG/DL (0.0-1.0) H Urine Leukocyte Esterase 3+ (NEGATIVE) H Urine RBC 10-15 /HPF (0 - 2) H Urine WBC 5-10 /HPF (0 - 2) H Urine Squamous Epithelial Cells Few /LPF (NONE/OCC) Urine Bacteria Many /HPF (NONE) H Urine Osmolality 463 mOsm/kg (429-449) H Macrocytosis 1+ Uric Acid 11.4 MG/DL (2.6-7.2) H Direct Bilirubin 0.2 MG/DL (0.0-0.3) C-Reactive Protein, Quantitative 15.2 mg/dL (0.00-0.90) H Test 01/07/19 10:50 01/07/19 11:30 Sodium Level 161 MMOL/L (136-145) *H Urine Color Yellow Urine Appearance Slightly cloudy Urine pH 5 (4.5-8.0) Urine Specific [place] 1.015 (1.005-1.035) Urine Protein 2+ (NEGATIVE) H Urine Glucose (UA) Negative (NEGATIVE) Urine Ketones Negative (NEGATIVE) Urine Blood 5+ (NEGATIVE) H Urine Nitrite Negative (NEGATIVE) Urine Bilirubin Negative (NEGATIVE) Urine Urobilinogen 1 MG/DL (0.0-1.0) H Urine Leukocyte Esterase 3+ (NEGATIVE) H Urine RBC 2-4 /HPF (0 - 2) H Urine WBC 30-40 /HPF (0 - 2) H Urine Squamous Epithelial Cells Few /LPF (NONE/OCC) Urine Bacteria Few /HPF (NONE) Urine Random Sodium 42 mmol/L (20-110) Microbiology Date/Time Source Procedure Growth Status 01/06/19 17:35 Urine,Clean Catch Urine Culture - Preliminary Gram Negative Bacillus 1 Resulted Gabe Hi MD Jan 07, 2019 16:48
--- NOTE | 2019-01-07 17:09 | Infectious Diseases Prog Note ---
Assessment/Plan Assessment/Plan Full consult dictated: A) 1) sepsis, ams, leukopenia 2) leukopenia, pancytopenia 3) gram neg uti 4) pneumonia - ? hcap, ? aspiration, ? cap 5) pmh noted P) 1) meropenem and vancomycin 2) check cultures, labs and chest x-ray 3) thank you Subjective Allergies: Coded Allergies: No Known Allergies (Unverified , 01/06/19) Objective Vital Signs Last 24 Hour Vital Signs Date Time Temp Pulse Resp B/P (MAP) Pulse Ox O2 Delivery O2 Flow Rate FiO2 01/07/19 16:00 Nasal Cannula 2.0 01/07/19 12:00 Nasal Cannula 2.0 01/07/19 12:00 96.4 70 19 112/42 (65) 98 01/07/19 12:00 70 01/07/19 08:00 98.1 70 18 103/47 (65) 96 01/07/19 08:00 Nasal Cannula 2.0 01/07/19 08:00 70 01/07/19 06:00 96.0 01/07/19 04:00 70 01/07/19 04:00 Nasal Cannula 2.0 01/07/19 04:00 70 15 90/52 (65) 97 01/07/19 00:12 Nasal Cannula 2.0 01/07/19 00:00 70 15 115/72 (86) 99 01/07/19 00:00 70 01/07/19 00:00 Nasal Cannula 2.0 01/06/19 22:18 70 01/06/19 21:25 98.2 72 16 118/95 100 Nasal Cannula 2.0 01/06/19 21:25 98.2 72 16 118/95 100 Nasal Cannula 2.0 01/06/19 18:57 98.2 70 16 118/95 100 Nasal Cannula 4.0 01/06/19 17:15 98.2 71 15 116/69 100 Nasal Cannula 4.0 Height (Feet): 5 Height (Inches): 2.00 Weight (Pounds): 187 Microbiology Date/Time Source Procedure Growth Status 01/06/19 17:35 Urine,Clean Catch Urine Culture - Preliminary Gram Negative Bacillus 1 Resulted Laboratory Tests Test 01/06/19 17:25 01/06/19 17:35 01/07/19 06:00 01/07/19 08:55 White Blood Count 4.0 K/UL (4.8-10.8) L 3.9 K/UL (4.8-10.8) L Red Blood Count 3.07 M/UL (4.20-5.40) L 2.79 M/UL (4.20-5.40) L Hemoglobin 9.7 G/DL (12.0-16.0) L 8.7 G/DL (12.0-16.0) L Hematocrit 31.9 % (37.0-47.0) L 28.8 % (37.0-47.0) L Mean Corpuscular Volume 104 FL (80-99) H 103 FL (80-99) H Mean Corpuscular Hemoglobin 31.7 PG (27.0-31.0) H 31.1 PG (27.0-31.0) H Mean Corpuscular Hemoglobin Concent 30.4 G/DL (32.0-36.0) L 30.1 G/DL (32.0-36.0) L Red Cell Distribution Width 17.3 % (11.6-14.8) H 17.5 % (11.6-14.8) H Platelet Count 38 K/UL (150-450) L 34 K/UL (150-450) L Mean Platelet Volume 11.3 FL (6.5-10.1) H 11.5 FL (6.5-10.1) H Neutrophils (%) (Auto) % (45.0-75.0) % (45.0-75.0) Lymphocytes (%) (Auto) % (20.0-45.0) % (20.0-45.0) Monocytes (%) (Auto) % (1.0-10.0) % (1.0-10.0) Eosinophils (%) (Auto) % (0.0-3.0) % (0.0-3.0) Basophils (%) (Auto) % (0.0-2.0) % (0.0-2.0) Differential Total Cells Counted 100 100 Neutrophils % (Manual) 81 % (45-75) H 92 % (45-75) H Lymphocytes % (Manual) 8 % (20-45) L 5 % (20-45) L Monocytes % (Manual) 7 % (1-10) 3 % (1-10) Eosinophils % (Manual) 1 % (0-3) 0 % (0-3) Basophils % (Manual) 0 % (0-2) 0 % (0-2) Band Neutrophils 3 % (0-8) 0 % (0-8) Platelet Estimate Decreased L Decreased L Platelet Morphology Normal Normal Hypochromasia 1+ Anisocytosis 1+ 1+ Prothrombin Time 11.8 SEC (9.30-11.50) H Prothromb Time International Ratio 1.1 (0.9-1.1) Activated Partial Thromboplast Time 38 SEC (23-33) H Sodium Level 165 MMOL/L (136-145) *H Pending 163 MMOL/L (136-145) *H 162 MMOL/L (136-145) *H Potassium Level 3.9 MMOL/L (3.5-5.1) 3.5 MMOL/L (3.5-5.1) Chloride Level 129 MMOL/L (98-107) H 129 MMOL/L (98-107) H Carbon Dioxide Level 24 MMOL/L (21-32) 24 MMOL/L (21-32) Anion Gap 12 mmol/L (5-15) 10 mmol/L (5-15) Blood Urea Nitrogen 70 mg/dL (7-18) H 70 mg/dL (7-18) H Creatinine 2.3 MG/DL (0.55-1.30) H 2.3 MG/DL (0.55-1.30) H Estimat Glomerular Filtration Rate mL/min (>60) mL/min (>60) Glucose Level 111 MG/DL (74-106) H 152 MG/DL (74-106) H Lactic Acid Level 1.30 mmol/L (0.4-2.0) Calcium Level 9.5 MG/DL (8.5-10.1) 9.0 MG/DL (8.5-10.1) Phosphorus Level 4.0 MG/DL (2.5-4.9) Magnesium Level 2.8 MG/DL (1.8-2.4) H 2.5 MG/DL (1.8-2.4) H Total Bilirubin 0.7 MG/DL (0.2-1.0) 0.5 MG/DL (0.2-1.0) Aspartate Amino Transf (AST/SGOT) 41 U/L (15-37) H 35 U/L (15-37) Alanine Aminotransferase (ALT/SGPT) 40 U/L (12-78) 40 U/L (12-78) Alkaline Phosphatase 103 U/L (46-116) 89 U/L (46-116) Total Creatine Kinase 28 U/L (26-308) Creatine Kinase MB 3.5 NG/ML (0.0-3.6) Creatine Kinase MB Relative Index 12.5 Troponin I 0.013 ng/mL (0.000-0.056) Total Protein 7.0 G/DL (6.4-8.2) 6.2 G/DL (6.4-8.2) L Albumin 2.4 G/DL (3.4-5.0) L 2.1 G/DL (3.4-5.0) L Globulin 4.6 g/dL Albumin/Globulin Ratio 0.5 (1.0-2.7) L Lipase 105 U/L (73-393) Urine Color Yellow Urine Appearance Cloudy Urine pH 6 (4.5-8.0) Urine Specific [place] 1.015 (1.005-1.035) Urine Protein 3+ (NEGATIVE) H Urine Glucose (UA) Negative (NEGATIVE) Urine Ketones Negative (NEGATIVE) Urine Blood 5+ (NEGATIVE) H Urine Nitrite Negative (NEGATIVE) Urine Bilirubin Negative (NEGATIVE) Urine Urobilinogen 1 MG/DL (0.0-1.0) H Urine Leukocyte Esterase 3+ (NEGATIVE) H Urine RBC 10-15 /HPF (0 - 2) H Urine WBC 5-10 /HPF (0 - 2) H Urine Squamous Epithelial Cells Few /LPF (NONE/OCC) Urine Bacteria Many /HPF (NONE) H Urine Osmolality 463 mOsm/kg (429-449) H Macrocytosis 1+ Uric Acid 11.4 MG/DL (2.6-7.2) H Direct Bilirubin 0.2 MG/DL (0.0-0.3) C-Reactive Protein, Quantitative 15.2 mg/dL (0.00-0.90) H Test 01/07/19 10:50 01/07/19 11:30 Sodium Level 161 MMOL/L (136-145) *H Urine Color Yellow Urine Appearance Slightly cloudy Urine pH 5 (4.5-8.0) Urine Specific [place] 1.015 (1.005-1.035) Urine Protein 2+ (NEGATIVE) H Urine Glucose (UA) Negative (NEGATIVE) Urine Ketones Negative (NEGATIVE) Urine Blood 5+ (NEGATIVE) H Urine Nitrite Negative (NEGATIVE) Urine Bilirubin Negative (NEGATIVE) Urine Urobilinogen 1 MG/DL (0.0-1.0) H Urine Leukocyte Esterase 3+ (NEGATIVE) H Urine RBC 2-4 /HPF (0 - 2) H Urine WBC 30-40 /HPF (0 - 2) H Urine Squamous Epithelial Cells Few /LPF (NONE/OCC) Urine Bacteria Few /HPF (NONE) Urine Random Sodium 42 mmol/L (20-110) Current Medications Medications (Trade) Dose Ordered Sig/Nuria Route PRN Reason Start Time Stop Time Status Last Admin Dose Admin Dextrose 1,000 ml @ 100 mls/hr Q10H IV 01/07/19 08:05 02/05/19 08:04 01/07/19 08:09 Dextrose (Dextrose 50%) 25 ml Q30M PRN IV Hypoglycemia 01/06/19 19:00 02/05/19 18:59 Dextrose (Dextrose 50%) 50 ml Q30M PRN IV Hypoglycemia 01/06/19 19:00 02/05/19 18:59 Lorazepam (Ativan 2mg/ml 1ml) 1 mg Q4H PRN IV For Anxiety 01/07/19 14:00 01/14/19 13:59 Meropenem 500 mg/ Sodium Chloride 55 ml @ 110 mls/hr Q12H IVPB 01/07/19 12:00 01/12/19 11:59 01/07/19 12:00 Pantoprazole (Protonix) 40 mg EVERY 12 HOURS IVP 01/07/19 21:00 02/06/19 20:59 Vancomycin HCl (Vanco rx to dose) 1 ea DAILY PRN MISC Per rx protocol 01/07/19 08:00 02/06/19 07:59 Ninfa Vences MD Jan 07, 2019 17:09
[2019-01-07 17:31] LABS: ANION GAP 11 mmol/L (5-15); BLOOD UREA NITROGEN 68 mg/dL (7-18); CALCIUM 8.7 MG/DL (8.5-10.1); CARBON DIOXIDE 23 MMOL/L (21-32); CHLORIDE 126 MMOL/L (98-107); CREATININE 2.3 MG/DL (0.55-1.30); POTASSIUM 3.8 MMOL/L (3.5-5.1); SODIUM 160 MMOL/L (136-145)
--- NOTE | 2019-01-07 19:12 | NUR ---
HAND-OFF: Report given to Enio Rojo RN.
--- NOTE | 2019-01-07 19:13 | NUR ---
NURSE NOTES: BESIDE REPORT RECEIVED FROM RADAMES CABRAL. PT IS X0, NONVERBAL, MOANS W/ TACTILE STIMULATION. RELATIONS LIAISON ON SHOWING AFIB/AFLUTTER/BBB/SR. IMPLANTED DEFIBRILLATOR ON THE LEFT CHEST NOTED; V PACING AND CAPTURING. 2L NC; SATING WELL. PT IS NPO. WHITFIELD IS INTACT AND DRAINING, CLOUDY YELLOW URINE. SKIN IS CLEAN AND DRY. SACRAL STAGE 2 APPROX NOTED ALONG W/ RIGHT WRIST/HAND SKIN TEAR, DRESSINGS INTACT. LAC 20G AND LF 24 NOTED. D5 RUNNING AT 100 ML/HR; IV SITE ASYMPTOMATIC. TEMPERATURE WAS 98 THROUGHOUT THE DAY, LAST ONE WAS 96 ON AM SHIFT. BAIRHUGGER ON TO RAISE TEMP, OTHERWISE PT ASYMPTOMATIC, RESTING, VSS, APPEARS COMFORTABLE, NO S/S OF DISTRESS. SPUTUM CX DUE, WILL FOLLOW OUT. PT IS UNABLE TO PROVIDE SAMPLE, WILL ALERT RT. BED IS LOCKED IN LOWEST POSITION, SIDE RAILS X3, BED ALARM ON, CALL RUDOLPH WITHIN REACH. WILL CONTINUE TO MONITOR AND FOLLOW PLAN OF CARE.
[2019-01-07 20:00] VITALS: BP 112/52
[2019-01-07] MEDS: Pantoprazole Inj IVP SCH (20:09)
--- NOTE | 2019-01-07 20:45 | Consultation ---
DATE OF CONSULTATION: 01/07/2019 INFECTIOUS DISEASE CONSULTATION CONSULTING PHYSICIAN: Ninfa Vences M.D. ATTENDING PHYSICIAN: Bear Herron M.D. REFERRING PHYSICIAN: Dr. Mederos REASON FOR CONSULTATION: Sepsis, leukopenia, hypothermia, and altered mental status. CHIEF COMPLAINT: The patient's chief complaint coming in to the hospital is sepsis and dehydration. HISTORY OF PRESENT ILLNESS: This is a 78-year-old female, who is in the step-down unit at [facility], who presented with altered mental status and dehydration. The patient has leukopenia and pancytopenia. She also is hypothermic. There is a concern that the patient could be septic. Workup shows that she certainly could have a gram-negative urinary tract infection and gram-negative sepsis. In addition, it looks like she has a pneumonia. She is at high risk for aspiration and healthcare-acquired pneumonia in addition to community-acquired pneumonia. Infectious Disease consultation was requested for antibiotic management. The patient is currently on meropenem and vancomycin. Cultures are pending. MAR was noted. Orders were noted. Notes and records were reviewed. REVIEW OF SYSTEMS: CONSTITUTIONAL: She is lethargic, poorly responsive, and not a very good historian. HEAD AND NECK: Could not really assess. No obvious head pain or neck pain. CARDIAC: No pressors. GASTROINTESTINAL: No nausea, vomiting, or diarrhea. GENITOURINARY: She has a Bowens. PULMONARY: Mild cough and congestion, but no significant secretions or hemoptysis. SKIN: No rash. NEUROLOGIC: No seizures, generalized fatigue, or weakness. Review of systems is otherwise limited in this patient. PAST MEDICAL HISTORY: The patient's past medical history includes the history of the following. The patient has a past medical history of severe dementia. She has history of hypertension, history of coronary artery disease or CAD, history of congestive heart failure, history of automatic implanted cardioverter defibrillator, history of subdural hematoma, and dementia. She has history of dyslipidemia, looks like possible dyslipidemia. She is on Lipitor. She has no history of diabetes. ALLERGIES: No known drug allergies. No antibiotic allergies. SOCIAL HISTORY: Negative for smoking, alcohol, or drug abuse. FAMILY HISTORY: Per the records, there is no mention of exposure to tuberculosis or cancer. MEDICATIONS: Upon reviewing the MAR, she is on the following medications. Pantoprazole and Protonix. She is on lorazepam, meropenem, and vancomycin. She is on intravenous fluids. She has been on Seroquel, Lexapro, Coreg, and Lipitor. Outside medications were noted and reconciliated. She has been in the past on atorvastatin, carvedilol, benazepril, oxalate, furosemide, , and quetiapine. PHYSICAL EXAM: VITAL SIGNS: Temperature, she has been hypothermic. Most recent temperature is 96.4, previous temperature is 96.0, pulse rate is 70, respiratory rate is 19, blood pressure is 112/42, and saturation 98% on 2 liters. GENERAL: Lethargic, weak, not a very good historian. HEAD AND NECK: Oral exam, no thrush. Eye exam, no icterus. Neck is supple. No JVD. Normocephalic. HEART: Regular. No obvious gallop or murmur. No friction rub. ABDOMEN: Soft. Positive bowel sounds. I could not really assess tenderness. LUNGS: Few bilateral rhonchi. Possible rales in the left lung. SKIN: No obvious maculopapular rash. MUSCULOSKELETAL: No effusion. Legs are without cellulitis. PERIPHERAL VASCULAR: No gangrene. GENITOURINARY: She has a Bowens. Urine is cloudy. LINES: Line sites without phlebitis. NEUROLOGIC: Generalized weakness. Poorly responsive. LABORATORY AND DIAGNOSTIC DATA: White count 3.9, hemoglobin 8.7, and platelet count is 34,000. Creatinine is elevated at 2.3. Sodium is 161. Uric acid of 11.4. CULTURES: Blood cultures are pending. Sputum culture is pending. Urine culture with greater than 100,000 gram-negative rods. IMAGING: Chest x-ray shows left perihilar infiltrate. ASSESSMENT AND PLAN: 1. The patient has sepsis syndrome with leukopenia, hypothermia, and altered mental status. She has pancytopenia. She is at high risk for sepsis. At this time, workup shows that she has a gram-negative urinary tract infection and possible gram-negative sepsis. In addition, she has a pneumonia in the left perihilar region. She is at high risk for aspiration and healthcare acquired pneumonia. I believe she comes from an F. At this time, I agree with vancomycin and meropenem for broad-spectrum antibiotics or empiric antibiotics, vancomycin for MRSA coverage and meropenem for gram-negative coverage. Continue vancomycin and meropenem for sepsis, gram-negative urinary tract infection, and pneumonia. Check cultures, laboratories, and chest x-ray. Await identification of the gram-negative organism for the urinary tract infection. 2. The patient has severe hypernatremia. 3. Dehydration. 4. Acute kidney injury. 5. Elevated creatinine. 6. Intravenous fluids. 7. Hypothermia. 8. Pancytopenia. Workup per Hematology/Oncology. 9. Hypertension. 10. Coronary artery disease. 11. Congestive heart failure. 12. Automatic implanted cardioverter. 13. Subdural hematoma. 14. Severe dementia. 15. Aspiration risk. 16. No known drug allergies. 17. Social history is negative. 18. Family history is noncontributory. 19. MAR was noted. 20. Case was discussed with RN. 21. Encephalopathy. 22. Skin care protocol. 23. The patient is DNR/DNI. Ninfa Vences M.D. DR: ABEBA JOB#: [id number] CC: GALINDO
[2019-01-08] VITALS: BP 116/60
[2019-01-08] MEDS: Meropenem 500 MG in NS 55 ML IVPB SCH ×2 (00:43→12:14)
--- NOTE | 2019-01-08 02:45 | Consultation ---
DATE OF CONSULTATION: 01/07/2019 NOTE: POOR AUDIO CONSULTING PHYSICIAN: Gabe Hi M.D. REFERRING PHYSICIAN: Bear Herron M.D. REASON FOR CONSULTATION: Atrial fibrillation as well as defibrillator evaluation. HISTORY OF PRESENT ILLNESS: The patient is a 78-year-old lady with history of hypertension, congestive heart failure as well as history of defibrillator implantation who was transferred hyponatremia as well as . The patient also was dehydrated with sodium of 165. The patient was admitted for suspected community-acquired pneumonia and a Cardiology consultation was obtained for further evaluation. At the time of my evaluation, the patient is nonverbal information. REVIEW OF SYSTEMS: Cannot be obtained. PAST MEDICAL HISTORY: As mentioned above. FAMILY HISTORY: Unable to obtain. SOCIAL HISTORY: halfway resident. Does not smoke or drink alcohol. MEDICATIONS: Per reconciliation. PHYSICAL EXAMINATION: VITAL SIGNS: Blood pressure is 112/42, pulse , respirations 19, and temperature 96.4. HEAD AND NECK: Shows mild JVD. LUNGS: Decreased breath sounds. CARDIOVASCULAR: Irregular S1 and S2 with no gallop. Defibrillator in left subclavian. ABDOMEN: Soft. EXTREMITIES: No pitting edema. LABORATORY DATA: White count of 3.9, hemoglobin 8.7, hematocrit 28.8, and platelet count 134,000. Sodium is 162, potassium is 3.5, BUN of 70, creatinine of 2.3, and glucose of 152. ASSESSMENT AND PLAN: 1. Atrial fibrillation. The rate is currently controlled. The patient agent. At this time, Coreg 25 mg b.i.d., we may need to resume that. The patient is off anticoagulation in view of thrombocytopenia. 2. Status post defibrillator. We will try to find the brand of the management. 3. Congestive heart failure. Echocardiogram is still pending. 4. The patient has severe hypernatremia and renal failure. The patient is on IV fluids per Dr. Wells. 5. History of hypertension. Lisinopril was discontinued. Hold off on Coreg at this time. 6. Possible pneumonia. 7. Altered mental status. 8. Thrombocytopenia. Thank you very much, Dr. Herron for allowing me to participate in the care of this patient. Please do not hesitate to contact for any questions regarding my evaluation. Gabe Hi M.D. DR: AMBERLY JOB#: [id number] CC:
[2019-01-08 04:00] VITALS: BP 117/53
--- NOTE | 2019-01-08 07:05 | NUR ---
HAND-OFF: Report given to RADAMES CABRAL.
--- NOTE | 2019-01-08 07:10 | NUR ---
NURSE NOTES: Received report from Enio Rojo RN. Patient asleep in bed, responsive to tactile stimuli, nonverbal. Receiving O2 via nasal cannula @ 2 L/min, noted with thick secretions, will provide deep suctioning. Patient remains NPO at this time. Bowens catheter patent and draining well. Left AC 20g IV site infusing D5W @ 100 cc/hr and left foot 20g saline lock patent and asymptomatic. Ofelia hugger in place. Bed locked in lowest position with side rails up x 3. All needs attended to. Call light within reach. Will continue to monitor.
[2019-01-08 07:46] LABS: HEMATOCRIT 26.8 % (37.0-47.0); HEMOGLOBIN 8.2 G/DL (12.0-16.0); MEAN CORPUSCULAR VOLUME 103 FL (80-99); PLATELET COUNT 41 K/UL (150-450); RED BLOOD COUNT 2.61 M/UL (4.20-5.40); RED CELL DISTRIBUTION WIDTH 16.7 % (11.6-14.8); WHITE BLOOD COUNT 4.6 K/UL (4.8-10.8)
[2019-01-08 08:00] VITALS: BP 112/71
--- NOTE | 2019-01-08 08:40 | NUR ---
ST NOTE: SWALLOW STATUS FOLLOWED UP PT'S CONDITIONS. PT SEEN AT BEDSIDE IN AM. PT IS LETHARGIC,SHALLOW AND RAPID BREATHING RATE WAS NOTED, RR: 25-30s. SOME WHEEZING WAS NOTED. AND PT REQUIRED ORAL AND DEEP NASAL SUCTION. BASED ON PT'S CURRENT MEDICAL CONDITIONS, PT IS NOT READY FOR ANY PO INTAKE AT THIS TIME. KEEP PT NPO. CONSIDER TEMPORARILY NONORAL FEEDING MEANS ONLY IF PT'S FAMILY RECEPTIVELY AGREES VS. PALLIATIVE CARE. D/W RNMISHA.
[2019-01-08] MEDS: Pantoprazole Inj IVP SCH ×2 (08:48→21:35)
[2019-01-08 09:02] LABS: ALANINE AMINOTRANSFERASE 30 U/L (12-78); ALBUMIN 2.4 G/DL (3.4-5.0); ALBUMIN/GLOBULIN RATIO 0.6 (1.0-2.7); ALKALINE PHOSPHATASE 86 U/L (46-116); ANION GAP 12 mmol/L (5-15); ASPARTATE AMINO TRANSFERASE 25 U/L (15-37); BILIRUBIN,TOTAL 0.7 MG/DL (0.2-1.0); BLOOD UREA NITROGEN 66 mg/dL (7-18); CALCIUM 9.4 MG/DL (8.5-10.1); CARBON DIOXIDE 22 MMOL/L (21-32); CHLORIDE 123 MMOL/L (98-107); CHOLESTEROL 99 MG/DL (< 200); CREATININE 2.6 MG/DL (0.55-1.30); FERRITIN 437 NG/ML (8-388); HDL CHOLESTEROL 45 MG/DL (40-60); POTASSIUM 3.5 MMOL/L (3.5-5.1); SODIUM 157 MMOL/L (136-145); TRIGLYCERIDES 82 MG/DL (30-150)
[2019-01-08 09:24] LABS: GAMMA GLUTAMYL TRANSPEPTIDASE 9 U/L (5-85)
[2019-01-08 10:00] LABS: % IRON SATURATION 41 % (15-50); IRON 53 ug/dL (50-175); TOTAL IRON BINDING CAPACITY 128 ug/dL (250-450)
--- NOTE | 2019-01-08 10:32 | General Progress Note ---
Assessment/Plan Assessment/Plan #Severe Sepsis #Likely HCAP #E. coli UTI #Acute metabolic encephalopathy superimposed on severe dementia -continue vanco and meropenem per ID recs -dicontinue Bare-Hugger -urine growing E. coli -follow up blood cultures -continue to hold anti-hypertensives #Hypernatremia -improved -continue free water -Nephrology following #Chronic sCHF s/p AICD #Atrial fibrillation #HTN #CAD -continue to hold all anti-hypertensives -Cardiology consulted VTE PPx Heparin SC DNR/DNI I spent 45 minutes on this patient's case, and 25 minutes was dedicated to counseling and/or care coordination. Subjective Date patient seen: Jan 08, 2019 Time patient seen: 08:40 ROS Limited/Unobtainable: Yes Allergies: Coded Allergies: No Known Allergies (Unverified , 01/06/19) Subjective Medicine follow up for severe sepsis, suspected HCAP, hypernatremia. Hypothermia improved although patient remains lethargic. Being transferred out of [facility] today Objective Last 24 Hour Vital Signs Date Time Temp Pulse Resp B/P (MAP) Pulse Ox O2 Delivery O2 Flow Rate FiO2 01/08/19 08:00 Nasal Cannula 2.0 01/08/19 08:00 97.5 70 28 112/71 (85) 100 01/08/19 04:00 Nasal Cannula 2.0 01/08/19 04:00 98.4 70 28 117/53 (74) 96 01/08/19 04:00 70 01/08/19 00:00 70 01/08/19 00:00 Nasal Cannula 2.0 01/08/19 00:00 97.4 70 25 116/60 (78) 98 01/07/19 20:00 Nasal Cannula 2.0 01/07/19 20:00 70 01/07/19 20:00 98.3 70 20 112/52 (72) 97 01/07/19 16:00 95.9 70 13 127/65 (85) 95 01/07/19 16:00 72 01/07/19 16:00 Nasal Cannula 2.0 01/07/19 12:00 Nasal Cannula 2.0 01/07/19 12:00 96.4 70 19 112/42 (65) 98 01/07/19 12:00 70 Intake and Output 01/07/19 01/08/19 19:00 07:00 Intake Total 1943.834 ml 1173.333 ml Output Total 250 ml 200 ml Balance 1693.834 ml 973.333 ml Intake IV Total 1943.834 ml 1173.333 ml Output Urine Total 250 ml 200 ml # Bowel Movements 1 Laboratory Tests 01/07/19 10:50: Sodium Level 161*H 01/07/19 11:30: Urine Color Yellow, Urine Appearance Slightly cloudy, Urine pH 5, Urine Specific [place] 1.015, Urine Protein 2+H, Urine Glucose (UA) Negative, Urine Ketones Negative, Urine Blood 5+H, Urine Nitrite Negative, Urine Bilirubin Negative, Urine Urobilinogen 1H, Urine Leukocyte Esterase 3+H, Urine RBC 2-4H, Urine WBC 30-40H, Urine Squamous Epithelial Cells Few, Urine Bacteria Few, Urine Random Sodium 42 01/07/19 16:40: Sodium Level 160H, Potassium Level 3.8, Chloride Level 126H, Carbon Dioxide Level 23, Anion Gap 11, Blood Urea Nitrogen 68H, Creatinine 2.3H, Estimat Glomerular Filtration Rate , Glucose Level 145H, Calcium Level 8.7, Magnesium Level 2.4 01/08/19 05:54: Sodium Level 157H, Potassium Level 3.5, Chloride Level 123H, Carbon Dioxide Level 22, Anion Gap 12, Blood Urea Nitrogen 66H, Creatinine 2.6H, Estimat Glomerular Filtration Rate , Glucose Level 136H, Calcium Level 9.4, Magnesium Level 2.4, White Blood Count 4.6L, Red Blood Count 2.61L, Hemoglobin 8.2L, Hematocrit 26.8L, Mean Corpuscular Volume 103H, Mean Corpuscular Hemoglobin 31.3H, Mean Corpuscular Hemoglobin Concent 30.5L, Red Cell Distribution Width 16.7H, Platelet Count 41L, Mean Platelet Volume 13.7H, Neutrophils (%) (Auto) , Lymphocytes (%) (Auto) , Monocytes (%) (Auto) , Eosinophils (%) (Auto) , Basophils (%) (Auto) , Neutrophils % (Manual) [Pending], Lymphocytes % (Manual) [Pending], Platelet Estimate [Pending], Platelet Morphology [Pending], Uric Acid 10.9H, Phosphorus Level 3.0, Iron Level 53, Total Iron Binding Capacity 128L, Percent Iron Saturation 41, Unsaturated Iron Binding 75L, Ferritin 437H, Total Bilirubin 0.7, Gamma Glutamyl Transpeptidase 9, Aspartate Amino Transf ( AST/SGOT) 25, Alanine Aminotransferase (ALT/SGPT) 30, Alkaline Phosphatase 86, Troponin I 0.049, Pro-B-Type Natriuretic Peptide 3575H, Total Protein 6.2L, Albumin 2.4L, Globulin 3.8, Albumin/Globulin Ratio 0.6L, Triglycerides Level 82 , Cholesterol Level 99, LDL Cholesterol 42, HDL Cholesterol 45, Cholesterol/HDL Ratio 2.2L, Vitamin B12 Level > 2000H, Folate 17.5, Thyroid Stimulating Hormone (TSH) 3.752H, Cortisol AM Sample [Pending], Random Vancomycin Level 14.7 Height (Feet): 5 Height (Inches): 2.00 Weight (Pounds): 187 General Appearance: lethargic Cardiovascular: normal rate, regular rhythm Respiratory/Chest: no respiratory distress, no accessory muscle use, crackles/ rales Abdomen: non tender, soft Rome Diamond MD Jan 08, 2019 10:32
--- NOTE | 2019-01-08 11:03 | NUR ---
RD ASSESSMENT & RECOMMENDATIONS SEE CARE ACTIVITY FOR COMPLETE ASSESSMENT DAILY ESTIMATED NEEDS: Needs based on Wound, sepsis, obese 58.8kg adj 25-35 kcals/kg 9335-4287 total kcals 1.25-2 g protein/kg 74-118 g total protein 25-30 mL/kg 5927-5999 total fluid mLs NUTRITION DIAGNOSIS: 1) Increased kcal and protein needs r/t wound healing as evidenced by pt w/ sacral stage 2 per RN 2) Altered nutrition related lab values r/t clinical status and water deficits as evidenced by pt adm w/ Na 165-> now 157, elev BUN and creat (66/2.6). CURRENT DIET: NPO PO DIET RECOMMENDATIONS: As medically able, LOW NA diet (texture per HOME HEALTH LVN) ENTERAL NUTRITION RECOMMENDATIONS: * Consult RD if non oral feeds are a part of POC * ADDITIONAL RECOMMENDATIONS: 1) RE-calibrate bed scale w/ added P200 mattress 2) Skin integrity: Add SWAPNA BID + MVI w/ oral diet 3) Monitor for ability to feed
[2019-01-08 12:00] VITALS: BP 132/61
[2019-01-08] MEDS ORDERED: Vancomycin 1gm/D5W 275ml IVPB ONE ×4 (14:00)
--- NOTE | 2019-01-08 14:20 | NUR ---
NURSE NOTES: Received report from Deonna CRUM. Pt is asleep in bed, awakens to voice/name, however is nonverbal. Pt is on 2L of oxygen via nasal cannula. Currently NPO. No signs/symptoms of pain or discomfort noted. IV access is on left AC #20g infusing D5W at 100ml/hour, and left foot #20G, saline lock, patent/intact. Skin has dressing on sacrum, and Tegaderm on right hand, intact. Dressing will be changed throughout my shift as needed/ordered. Pt is on overlay mattress. Bed in lowest position, three side rails up, brakes engaged, alarm on, call light within easy reach. Tele monitor on pt, V-paced. Pt's belonging's list checked and signed with the transferring nurse (no belongings noted). Will continue to monitor pt and follow plan of care per MD order and protocol.
--- NOTE | 2019-01-08 14:20 | NUR ---
TRANSFER TO FLOOR: Patient transferred to telemetry room 207-2, per Dr. Mederos. Report given to RADAMES Osuna. Belongings and medications given to receiving nurse. Family informed of transfer.
[2019-01-08] MEDS ORDERED: LORazepam Inj 2mg/ml 1ml IV PRN (15:00)
[2019-01-08] MEDS ORDERED: Vancomycin 1 GM in D5W 275 ML IVPB ONE (15:00)
--- NOTE | 2019-01-08 15:27 | Nephrology Progress Note ---
Assessment/Plan Problem List: (1) Acute renal failure (2) Dehydration (3) Hypernatremia (4) Anemia Assessment acute Renal Failure Sepsis / UTI / Pneumonia Acute metabolic Encephalopathy Hypernatremia AICD AT FIB CAD HTN presents with Low BP Anemia DNR DNI Plan Free water administration watch for chf pendleton hold mind altering meds protonix IV DC Motrin !!! Subjective ROS Limited/Unobtainable: No Constitutional: Reports: malaise Objective Objective Last 24 Hour Vital Signs Date Time Temp Pulse Resp B/P (MAP) Pulse Ox O2 Delivery O2 Flow Rate FiO2 01/08/19 12:00 97.3 72 22 132/61 (84) 99 01/08/19 12:00 Nasal Cannula 2.0 01/08/19 08:00 Nasal Cannula 2.0 01/08/19 08:00 97.5 70 28 112/71 (85) 100 01/08/19 04:00 Nasal Cannula 2.0 01/08/19 04:00 98.4 70 28 117/53 (74) 96 01/08/19 04:00 70 01/08/19 00:00 70 01/08/19 00:00 Nasal Cannula 2.0 01/08/19 00:00 97.4 70 25 116/60 (78) 98 01/07/19 20:00 Nasal Cannula 2.0 01/07/19 20:00 70 01/07/19 20:00 98.3 70 20 112/52 (72) 97 01/07/19 16:00 95.9 70 13 127/65 (85) 95 01/07/19 16:00 72 01/07/19 16:00 Nasal Cannula 2.0 Intake and Output 01/07/19 01/08/19 19:00 07:00 Intake Total 1943.834 ml 1273.333 ml Output Total 250 ml 200 ml Balance 1693.834 ml 1073.333 ml Intake IV Total 1943.834 ml 1273.333 ml Output Urine Total 250 ml 200 ml # Bowel Movements 1 Laboratory Tests 01/07/19 16:40: Sodium Level 160H, Potassium Level 3.8, Chloride Level 126H, Carbon Dioxide Level 23, Anion Gap 11, Blood Urea Nitrogen 68H, Creatinine 2.3H, Estimat Glomerular Filtration Rate , Glucose Level 145H, Calcium Level 8.7, Magnesium Level 2.4 01/08/19 05:54: Sodium Level 157H, Potassium Level 3.5, Chloride Level 123H, Carbon Dioxide Level 22, Anion Gap 12, Blood Urea Nitrogen 66H, Creatinine 2.6H, Estimat Glomerular Filtration Rate , Glucose Level 136H, Calcium Level 9.4, Magnesium Level 2.4, White Blood Count 4.6L, Red Blood Count 2.61L, Hemoglobin 8.2L, Hematocrit 26.8L, Mean Corpuscular Volume 103H, Mean Corpuscular Hemoglobin 31.3H, Mean Corpuscular Hemoglobin Concent 30.5L, Red Cell Distribution Width 16.7H, Platelet Count 41L, Mean Platelet Volume 13.7H, Neutrophils (%) (Auto) , Lymphocytes (%) (Auto) , Monocytes (%) (Auto) , Eosinophils (%) (Auto) , Basophils (%) (Auto) , Differential Total Cells Counted 100, Neutrophils % ( Manual) 86H, Lymphocytes % (Manual) 4L, Monocytes % (Manual) 3, Eosinophils % ( Manual) 1, Basophils % (Manual) 0, Band Neutrophils 6, Platelet Estimate DecreasedL, Platelet Morphology Normal, Anisocytosis 1+, Macrocytosis 1+, Uric Acid 10.9H, Phosphorus Level 3.0, Iron Level 53, Total Iron Binding Capacity 128L, Percent Iron Saturation 41, Unsaturated Iron Binding 75L, Ferritin 437H, Total Bilirubin 0.7, Gamma Glutamyl Transpeptidase 9, Aspartate Amino Transf ( AST/SGOT) 25, Alanine Aminotransferase (ALT/SGPT) 30, Alkaline Phosphatase 86, Troponin I 0.049, Pro-B-Type Natriuretic Peptide 3575H, Total Protein 6.2L, Albumin 2.4L, Globulin 3.8, Albumin/Globulin Ratio 0.6L, Triglycerides Level 82 , Cholesterol Level 99, LDL Cholesterol 42, HDL Cholesterol 45, Cholesterol/HDL Ratio 2.2L, Vitamin B12 Level > 2000H, Folate 17.5, Thyroid Stimulating Hormone (TSH) 3.752H, Cortisol AM Sample 13.3, Random Vancomycin Level 14.7 Height (Feet): 5 Height (Inches): 2.00 Weight (Pounds): 187 General Appearance: no apparent distress, lethargic Cardiovascular: normal rate Respiratory/Chest: decreased breath sounds Abdomen: soft Noe Wells MD Jan 08, 2019 15:27
[2019-01-08 16:00] VITALS: BP 130/65
--- NOTE | 2019-01-08 17:06 | Consultation ---
History of Present Illness General Date patient seen: Jan 08, 2019 Chief Complaint: Abnormal Labs Present Illness Allergies: Coded Allergies: No Known Allergies (Unverified , 01/06/19) Medication History Scheduled Atorvastatin Calcium* (Lipitor*), 10 MG ORAL DAILY, (Reported) Carvedilol* (Carvedilol*), 25 MG ORAL BID, (Reported) Donepezil Hcl* (Aricept*), 10 MG ORAL QHS, (Reported) Escitalopram Oxalate* (Lexapro*), 10 MG ORAL DAILY, (Reported) Furosemide* (Lasix*), 40 MG ORAL DAILY, (Reported) Isosorbide Mononitrate (Isosorbide Mononitrate Er), 60 MG PO BID, (Reported) Quetiapine Fumarate* (Seroquel*), 25 MG ORAL THREE TIMES A DAY, (Reported) Scheduled PRN Ibuprofen* (Motrin*), 800 MG ORAL THREE TIMES A DAY PRN for Per rx protocol, ( Reported) Discontinued Medications Acetaminophen* (Tylenol Extra Strength*), 650 MG ORAL Q6H PRN for Mild Pain/ Temp > 100.5, (Reported) Discontinued Reason: Pt stopped taking med Carvedilol* (Carvedilol*), 12.5 MG ORAL EVERY 12 HOURS, (Reported) Discontinued Reason: Prescription changed Clonidine Hcl* (Catapres*), 0.1 MG ORAL EVERY 6 HOURS, (Reported) Discontinued Reason: Pt stopped taking med Lisinopril* (Lisinopril*), 40 MG ORAL DAILY, (Reported) Discontinued Reason: Pt stopped taking med Patient History Healthcare decision maker Jasper Larson Resuscitation status Do Not Resuscitate Advanced Directive on File No Physical Exam Last 24 Hour Vital Signs Date Time Temp Pulse Resp B/P (MAP) Pulse Ox O2 Delivery O2 Flow Rate FiO2 01/08/19 16:00 Nasal Cannula 2.0 01/08/19 12:00 72 01/08/19 12:00 97.3 72 22 132/61 (84) 99 01/08/19 12:00 Nasal Cannula 2.0 01/08/19 08:00 Nasal Cannula 2.0 01/08/19 08:00 97.5 70 28 112/71 (85) 100 01/08/19 08:00 70 01/08/19 04:00 Nasal Cannula 2.0 01/08/19 04:00 98.4 70 28 117/53 (74) 96 01/08/19 04:00 70 01/08/19 00:00 70 01/08/19 00:00 Nasal Cannula 2.0 01/08/19 00:00 97.4 70 25 116/60 (78) 98 01/07/19 20:00 Nasal Cannula 2.0 01/07/19 20:00 70 01/07/19 20:00 98.3 70 20 112/52 (72) 97 Intake and Output 01/07/19 01/08/19 19:00 07:00 Intake Total 1943.834 ml 1273.333 ml Output Total 250 ml 200 ml Balance 1693.834 ml 1073.333 ml Intake IV Total 1943.834 ml 1273.333 ml Output Urine Total 250 ml 200 ml # Bowel Movements 1 Laboratory Tests Test 01/08/19 05:54 White Blood Count 4.6 K/UL (4.8-10.8) L Red Blood Count 2.61 M/UL (4.20-5.40) L Hemoglobin 8.2 G/DL (12.0-16.0) L Hematocrit 26.8 % (37.0-47.0) L Mean Corpuscular Volume 103 FL (80-99) H Mean Corpuscular Hemoglobin 31.3 PG (27.0-31.0) H Mean Corpuscular Hemoglobin Concent 30.5 G/DL (32.0-36.0) L Red Cell Distribution Width 16.7 % (11.6-14.8) H Platelet Count 41 K/UL (150-450) L Mean Platelet Volume 13.7 FL (6.5-10.1) H Neutrophils (%) (Auto) % (45.0-75.0) Lymphocytes (%) (Auto) % (20.0-45.0) Monocytes (%) (Auto) % (1.0-10.0) Eosinophils (%) (Auto) % (0.0-3.0) Basophils (%) (Auto) % (0.0-2.0) Differential Total Cells Counted 100 Neutrophils % (Manual) 86 % (45-75) H Lymphocytes % (Manual) 4 % (20-45) L Monocytes % (Manual) 3 % (1-10) Eosinophils % (Manual) 1 % (0-3) Basophils % (Manual) 0 % (0-2) Band Neutrophils 6 % (0-8) Platelet Estimate Decreased L Platelet Morphology Normal Anisocytosis 1+ Macrocytosis 1+ Sodium Level 157 MMOL/L (136-145) H Potassium Level 3.5 MMOL/L (3.5-5.1) Chloride Level 123 MMOL/L (98-107) H Carbon Dioxide Level 22 MMOL/L (21-32) Anion Gap 12 mmol/L (5-15) Blood Urea Nitrogen 66 mg/dL (7-18) H Creatinine 2.6 MG/DL (0.55-1.30) H Estimat Glomerular Filtration Rate mL/min (>60) Glucose Level 136 MG/DL (74-106) H Uric Acid 10.9 MG/DL (2.6-7.2) H Calcium Level 9.4 MG/DL (8.5-10.1) Phosphorus Level 3.0 MG/DL (2.5-4.9) Magnesium Level 2.4 MG/DL (1.8-2.4) Iron Level 53 ug/dL (50-175) Total Iron Binding Capacity 128 ug/dL (250-450) L Percent Iron Saturation 41 % (15-50) Unsaturated Iron Binding 75 ug/dL (112-346) L Ferritin 437 NG/ML (8-388) H Total Bilirubin 0.7 MG/DL (0.2-1.0) Gamma Glutamyl Transpeptidase 9 U/L (5-85) Aspartate Amino Transf (AST/SGOT) 25 U/L (15-37) Alanine Aminotransferase (ALT/SGPT) 30 U/L (12-78) Alkaline Phosphatase 86 U/L (46-116) Troponin I 0.049 ng/mL (0.000-0.056) Pro-B-Type Natriuretic Peptide 3575 pg/mL (0-125) H Total Protein 6.2 G/DL (6.4-8.2) L Albumin 2.4 G/DL (3.4-5.0) L Globulin 3.8 g/dL Albumin/Globulin Ratio 0.6 (1.0-2.7) L Triglycerides Level 82 MG/DL (30-150) Cholesterol Level 99 MG/DL (< 200) LDL Cholesterol 42 mg/dL (<100) HDL Cholesterol 45 MG/DL (40-60) Cholesterol/HDL Ratio 2.2 (3.3-4.4) L Vitamin B12 Level > 2000 PG/ML (193-986) H Folate 17.5 NG/ML (8.6-58.9) Thyroid Stimulating Hormone (TSH) 3.752 uiU/mL (0.358-3.740) Cortisol AM Sample 13.3 UG/DL Random Vancomycin Level 14.7 ug/mL Height (Feet): 5 Height (Inches): 2.00 Weight (Pounds): 187 Medications Current Medications Medications (Trade) Dose Ordered Sig/Nuria Route PRN Reason Start Time Stop Time Status Last Admin Dose Admin Dextrose 1,000 ml @ 100 mls/hr Q10H IV 01/08/19 15:00 02/05/19 08:04 Dextrose (Dextrose 50%) 25 ml Q30M PRN IV Hypoglycemia 01/08/19 15:00 02/05/19 18:59 Dextrose (Dextrose 50%) 50 ml Q30M PRN IV Hypoglycemia 01/08/19 15:00 02/05/19 18:59 Lorazepam (Ativan 2mg/ml 1ml) 1 mg Q4H PRN IV For Anxiety 01/08/19 15:00 01/14/19 14:59 01/08/19 16:57 Meropenem 500 mg/ Sodium Chloride 55 ml @ 110 mls/hr Q12H IVPB 01/09/19 00:00 01/12/19 11:59 Pantoprazole (Protonix) 40 mg EVERY 12 HOURS IVP 01/08/19 21:00 02/06/19 20:59 Vancomycin HCl (Vanco rx to dose) 1 ea DAILY PRN MISC Per rx protocol 01/08/19 15:00 02/07/19 14:59 Assessment/Plan Assessment/Plan Hematology Consultation Note REQ MD: Fito RFC: Pancytopenia DOS: 01/08/19 HPI 78 year old woman (DNR/DNI) with history of severe dementia, HTN, CAD, chronic sCHF s/p AICD, suspected CAD, SDH, who presents from [facility] for evaluation of lethargy and hyponatremia. Here she was found to by hypothermic to 93 degrees with lethargy and sodium of 165. She was admitted to [facility] for acute metabolic encephalopathy, severe sepsis, suspected HCAP. This morning patient is lethargic, unable to be aroused, moves extremities to painful stimuli. Information obtained from medical record as patient is markedly encephalopathy. Noted to have severe pancytoepnia and heme was consulted for further evaluation. Social History: Unable to obtain due to encephalopathy Family History:Unable to obtain due to encephalopathy Allergies: No Known Allergies (Unverified , 01/06/19) Meds Atorvastatin Calcium* (Lipitor*), 10 MG ORAL DAILY, (Reported) Carvedilol* (Carvedilol*), 25 MG ORAL BID, (Reported) Donepezil Hcl* (Aricept*), 10 MG ORAL QHS, (Reported) Escitalopram Oxalate* (Lexapro*), 10 MG ORAL DAILY, (Reported) Furosemide* (Lasix*), 40 MG ORAL DAILY, (Reported) Isosorbide Mononitrate (Isosorbide Mononitrate Er), 60 MG PO BID, (Reported) Quetiapine Fumarate* (Seroquel*), 25 MG ORAL THREE TIMES A DAY, (Reported) Scheduled PRN Ibuprofen* (Motrin*), 800 MG ORAL THREE TIMES A DAY PRN for Per rx protocol, ( Reported) Discontinued Medications Acetaminophen* (Tylenol Extra Strength*), 650 MG ORAL Q6H PRN for Mild Pain/ Temp > 100.5, (Reported) Discontinued Reason: Pt stopped taking med Carvedilol* (Carvedilol*), 12.5 MG ORAL EVERY 12 HOURS, (Reported) Discontinued Reason: Prescription changed Clonidine Hcl* (Catapres*), 0.1 MG ORAL EVERY 6 HOURS, (Reported) Discontinued Reason: Pt stopped taking med Lisinopril* (Lisinopril*), 40 MG ORAL DAILY, (Reported) Discontinued Reason: Pt stopped taking med Healthcare decision maker JASPER LARSON Resuscitation status Do Not Resuscitate Advanced Directive on File No ROS Unable to obtain due to encephalopathy PE General Appearance: lethargic ++2l NC Lines, tubes and drains: peripheral HEENT: normocephalic, atraumatic Neck: normal alignment Respiratory/Chest: lungs clear, normal breath sounds Cardiovascular/Chest: normal peripheral pulses, normal rate Abdomen: non tender, soft, no organomegaly Extremities: non-tender, normal inspection : [place] Last 24 Hour Vital Signs Date Time Temp Pulse Resp B/P (MAP) Pulse Ox O2 Delivery O2 Flow Rate FiO2 01/08/19 16:00 Nasal Cannula 2.0 01/08/19 12:00 72 01/08/19 12:00 97.3 72 22 132/61 (84) 99 01/08/19 12:00 Nasal Cannula 2.0 01/08/19 08:00 Nasal Cannula 2.0 01/08/19 08:00 97.5 70 28 112/71 (85) 100 01/08/19 08:00 70 01/08/19 04:00 Nasal Cannula 2.0 01/08/19 04:00 98.4 70 28 117/53 (74) 96 01/08/19 04:00 70 01/08/19 00:00 70 01/08/19 00:00 Nasal Cannula 2.0 01/08/19 00:00 97.4 70 25 116/60 (78) 98 01/07/19 20:00 Nasal Cannula 2.0 01/07/19 20:00 70 01/07/19 20:00 98.3 70 20 112/52 (72) 97 Intake and Output 01/06/19 01/07/19 19:00 07:00 Intake Total 1000 ml 545 ml Balance 1000 ml 545 ml Intake IV Total 1000 ml 545 ml # Voids 1 2 # Bowel Movements 3 Laboratory Tests Test 01/06/19 17:25 01/06/19 17:35 01/07/19 06:00 White Blood Count 4.0 K/UL (4.8-10.8) L 3.9 K/UL (4.8-10.8) L Red Blood Count 3.07 M/UL (4.20-5.40) L 2.79 M/UL (4.20-5.40) L Hemoglobin 9.7 G/DL (12.0-16.0) L 8.7 G/DL (12.0-16.0) L Hematocrit 31.9 % (37.0-47.0) L 28.8 % (37.0-47.0) L Mean Corpuscular Volume 104 FL (80-99) H 103 FL (80-99) H Mean Corpuscular Hemoglobin 31.7 PG (27.0-31.0) H 31.1 PG (27.0-31.0) H Mean Corpuscular Hemoglobin Concent 30.4 G/DL (32.0-36.0) L 30.1 G/DL (32.0-36.0) L Red Cell Distribution Width 17.3 % (11.6-14.8) H 17.5 % (11.6-14.8) H Platelet Count 38 K/UL (150-450) L 34 K/UL (150-450) L Mean Platelet Volume 11.3 FL (6.5-10.1) H 11.5 FL (6.5-10.1) H Neutrophils (%) (Auto) % (45.0-75.0) % (45.0-75.0) Lymphocytes (%) (Auto) % (20.0-45.0) % (20.0-45.0) Monocytes (%) (Auto) % (1.0-10.0) % (1.0-10.0) Eosinophils (%) (Auto) % (0.0-3.0) % (0.0-3.0) Basophils (%) (Auto) % (0.0-2.0) % (0.0-2.0) Differential Total Cells Counted 100 Neutrophils % (Manual) 81 % (45-75) H Pending Lymphocytes % (Manual) 8 % (20-45) L Pending Monocytes % (Manual) 7 % (1-10) Eosinophils % (Manual) 1 % (0-3) Basophils % (Manual) 0 % (0-2) Band Neutrophils 3 % (0-8) Platelet Estimate Decreased L Pending Platelet Morphology Normal Pending Hypochromasia 1+ Anisocytosis 1+ Prothrombin Time 11.8 SEC (9.30-11.50) H Prothromb Time International Ratio 1.1 (0.9-1.1) Activated Partial Thromboplast Time 38 SEC (23-33) H Sodium Level 165 MMOL/L (136-145) *H Pending 163 MMOL/L (136-145) *H Potassium Level 3.9 MMOL/L (3.5-5.1) 3.5 MMOL/L (3.5-5.1) Chloride Level 129 MMOL/L (98-107) H 129 MMOL/L (98-107) H Carbon Dioxide Level 24 MMOL/L (21-32) 24 MMOL/L (21-32) Anion Gap 12 mmol/L (5-15) 10 mmol/L (5-15) Blood Urea Nitrogen 70 mg/dL (7-18) H 70 mg/dL (7-18) H Creatinine 2.3 MG/DL (0.55-1.30) H 2.3 MG/DL (0.55-1.30) H Estimat Glomerular Filtration Rate mL/min (>60) mL/min (>60) Glucose Level 111 MG/DL (74-106) H 152 MG/DL (74-106) H Lactic Acid Level 1.30 mmol/L (0.4-2.0) Calcium Level 9.5 MG/DL (8.5-10.1) 9.0 MG/DL (8.5-10.1) Phosphorus Level 4.0 MG/DL (2.5-4.9) Magnesium Level 2.8 MG/DL (1.8-2.4) H 2.5 MG/DL (1.8-2.4) H Total Bilirubin 0.7 MG/DL (0.2-1.0) Aspartate Amino Transf (AST/SGOT) 41 U/L (15-37) H Alanine Aminotransferase (ALT/SGPT) 40 U/L (12-78) Alkaline Phosphatase 103 U/L (46-116) Total Creatine Kinase 28 U/L (26-308) Creatine Kinase MB 3.5 NG/ML (0.0-3.6) Creatine Kinase MB Relative Index 12.5 Troponin I 0.013 ng/mL (0.000-0.056) Total Protein 7.0 G/DL (6.4-8.2) Albumin 2.4 G/DL (3.4-5.0) L Globulin 4.6 g/dL Albumin/Globulin Ratio 0.5 (1.0-2.7) L Lipase 105 U/L (73-393) Urine Color Yellow Urine Appearance Cloudy Urine pH 6 (4.5-8.0) Urine Specific [place] 1.015 (1.005-1.035) Urine Protein 3+ (NEGATIVE) H Urine Glucose (UA) Negative (NEGATIVE) Urine Ketones Negative (NEGATIVE) Urine Blood 5+ (NEGATIVE) H Urine Nitrite Negative (NEGATIVE) Urine Bilirubin Negative (NEGATIVE) Urine Urobilinogen 1 MG/DL (0.0-1.0) H Urine Leukocyte Esterase 3+ (NEGATIVE) H Urine RBC 10-15 /HPF (0 - 2) H Urine WBC 5-10 /HPF (0 - 2) H Urine Squamous Epithelial Cells Few /LPF (NONE/OCC) Urine Bacteria Many /HPF (NONE) H Urine Osmolality 463 mOsm/kg (429-449) H Microbiology Date/Time Source Procedure Growth Status 01/06/19 17:35 Urine,Clean Catch Urine Culture - Preliminary Gram Negative Bacillus 1 Resulted Height (Feet): 5 Height (Inches): 2.00 Weight (Pounds): 187 Medications Current Medications Medications (Trade) Dose Ordered Sig/Nuria Route PRN Reason Start Time Stop Time Status Last Admin Dose Admin Atorvastatin Calcium (Lipitor) 10 mg DAILY ORAL 01/07/19 09:00 02/06/19 08:59 Dextrose 1,000 ml @ 70 mls/hr [id number] IV 01/06/19 19:48 02/05/19 19:47 01/06/19 23:07 Dextrose (Dextrose 50%) 25 ml Q30M PRN IV Hypoglycemia 01/06/19 19:00 02/05/19 18:59 Dextrose (Dextrose 50%) 50 ml Q30M PRN IV Hypoglycemia 01/06/19 19:00 02/05/19 18:59 Donepezil HCl (Aricept) 10 mg QHS ORAL 01/06/19 21:00 02/05/19 20:59 Escitalopram Oxalate (Lexapro) 10 mg DAILY ORAL 01/07/19 09:00 02/06/19 08:59 Ibuprofen (Motrin) 800 mg TIDPRN PRN ORAL For Pain 01/06/19 19:00 02/05/19 18:59 Meropenem 1 gm/ Sodium Chloride 55 ml @ 110 mls/hr Q8HR IVPB 01/07/19 08:00 01/12/19 07:59 UNV Quetiapine Fumarate (SEROquel) 25 mg THREE TIMES A DAY ORAL 01/07/19 09:00 02/06/19 08:59 Vancomycin HCl (Vanco rx to dose) 1 ea DAILY PRN MISC Per rx protocol 01/07/19 08:00 02/06/19 07:59 UNV Assessment/Plan: # Severe Pancytopenia -- multiple etiologies could be related to underlying liver disease, medication-induced, infection versus viral syndrome --> peripheral smear has been ordered and does not show significant abnormalities --> Continue to monitor for improvement, trend cbc --> Hep panel and HIV have been ordered --> US abd ordered to r/o cirrhosis and hepatosplenomegaly --> consider other causes, infections that could contribute --> reverse isolation if ANC is <2000 --> Give neupogen if ANC <1000 --> Transfuse if hgb <7, with 1 unit prbc --> consider bone marrow biopsy if no other causes are found # Coagulation defect, unspecified (D68.9) aka coagulopathy, multifactorial usually related to poor PO intake versus medications, versus hepatitis v cirrhosis --> administer Vitamin K if patient is bleeding or FFP if the INR is >10 --> hold off on ffp unless active procedure/bleeding, first begin with vit K 10 --> mixing study as needed # Severe Sepsis woth likely hcap --> on abx as per ID team # Acute metabolic encephalopathy superimposed on severe dementia --> broaden IV antibiotics to vanco and meropenem --> check blood cultures, serial lactate and PCT # Hypernatremia --> d5w as per Nephrology consulted # Chronic sCHF s/p AICD --> off anticoagulation, reviewed recs of Dr. Hi # Atrial fibrillation The timing of this note does not necessarily reflect the time of the patient was seen. Greatly appreciate consultation! Blane Kelley MD Jan 08, 2019 17:06
--- NOTE | 2019-01-08 18:15 | General Progress Note ---
Assessment/Plan Assessment/Plan Assessment/Plan: # Severe Pancytopenia -- multiple etiologies could be related to underlying liver disease, medication-induced, infection versus viral syndrome --> peripheral smear has been ordered and does not show significant abnormalities, however concerning Ca++ elevated --> SPEP is pending along with UPEP --> r/o multiple myeloma --> Continue to monitor for improvement, trend cbc --> Hep panel and HIV have been ordered --> US abd ordered to r/o cirrhosis and hepatosplenomegaly --> consider other causes, infections that could contribute --> reverse isolation if ANC is <2000 --> Give neupogen if ANC <1000 --> Transfuse if hgb <7, with 1 unit prbc --> consider bone marrow biopsy if no other causes are found # Coagulation defect, unspecified (D68.9) aka coagulopathy, multifactorial usually related to poor PO intake versus medications, versus hepatitis v cirrhosis --> administer Vitamin K if patient is bleeding or FFP if the INR is >10 --> hold off on ffp unless active procedure/bleeding, first begin with vit K 10 --> mixing study as needed # Severe Sepsis woth likely hcap --> on abx as per ID team # Acute metabolic encephalopathy superimposed on severe dementia --> on IV antibiotics to vanco and meropenem --> check blood cultures, serial lactate and PCT # Hypernatremia --> d5w as per Nephrology consulted # Chronic sCHF s/p AICD --> off anticoagulation, reviewed recs of Dr. Hi # Atrial fibrillation The timing of this note does not necessarily reflect the time of the patient was seen. Greatly appreciate consultation! Subjective Date patient seen: Jan 08, 2019 Constitutional: Denies: no symptoms, chills, diaphoresis, fever, malaise, weakness, other HEENT: Denies: no symptoms, eye pain, blurred vision, tearing, double vision, ear pain, ear discharge, nose pain, nose congestion, throat pain, throat swelling, mouth pain, mouth swelling, other Respiratory: Denies: no symptoms, cough, orthopnea, shortness of breath, SOB with excertion, SOB at rest, sputum, stridor, wheezing, other Gastrointestinal/Abdominal: Denies: no symptoms, abdomen distended, abdominal pain, black stools, tarry stools, blood in stool, constipated, diarrhea, difficulty swallowing, nausea, poor appetite, poor fluid intake, rectal bleeding , vomiting, other Genitourinary: Denies: no symptoms, burning, discharge, frequency, flank pain, hematuria, incontinence, pain, urgency, other Neurologic/Psychiatric: Denies: no symptoms, anxiety, depressed, emotional problems, headache, numbness, paresthesia, pre-existing deficit, seizure, tingling, tremors, weakness, other Endocrine: Denies: no symptoms, excessive sweating, flushing, intolerance to cold, intolerance to heat, increased hunger, increased thirst, increased urine, unexplained weight gain, unexplained weight loss, other Allergies: Coded Allergies: No Known Allergies (Unverified , 01/06/19) Subjective 01/08: pending lab workup, us of the abd pending, spep and dic panel pending Objective Last 24 Hour Vital Signs Date Time Temp Pulse Resp B/P (MAP) Pulse Ox O2 Delivery O2 Flow Rate FiO2 01/08/19 16:00 Nasal Cannula 2.0 01/08/19 12:00 72 01/08/19 12:00 97.3 72 22 132/61 (84) 99 01/08/19 12:00 Nasal Cannula 2.0 01/08/19 08:00 Nasal Cannula 2.0 01/08/19 08:00 97.5 70 28 112/71 (85) 100 01/08/19 08:00 70 01/08/19 04:00 Nasal Cannula 2.0 01/08/19 04:00 98.4 70 28 117/53 (74) 96 01/08/19 04:00 70 01/08/19 00:00 70 01/08/19 00:00 Nasal Cannula 2.0 01/08/19 00:00 97.4 70 25 116/60 (78) 98 01/07/19 20:00 Nasal Cannula 2.0 01/07/19 20:00 70 01/07/19 20:00 98.3 70 20 112/52 (72) 97 Intake and Output 01/07/19 01/08/19 19:00 07:00 Intake Total 1943.834 ml 1273.333 ml Output Total 250 ml 200 ml Balance 1693.834 ml 1073.333 ml Intake IV Total 1943.834 ml 1273.333 ml Output Urine Total 250 ml 200 ml # Bowel Movements 1 Laboratory Tests 01/08/19 05:54: White Blood Count 4.6L, Red Blood Count 2.61L, Hemoglobin 8.2L, Hematocrit 26.8L , Mean Corpuscular Volume 103H, Mean Corpuscular Hemoglobin 31.3H, Mean Corpuscular Hemoglobin Concent 30.5L, Red Cell Distribution Width 16.7H, Platelet Count 41L, Mean Platelet Volume 13.7H, Neutrophils (%) (Auto) , Lymphocytes (%) (Auto) , Monocytes (%) (Auto) , Eosinophils (%) (Auto) , Basophils (%) (Auto) , Differential Total Cells Counted 100, Neutrophils % ( Manual) 86H, Lymphocytes % (Manual) 4L, Monocytes % (Manual) 3, Eosinophils % ( Manual) 1, Basophils % (Manual) 0, Band Neutrophils 6, Platelet Estimate DecreasedL, Platelet Morphology Normal, Anisocytosis 1+, Macrocytosis 1+, Sodium Level 157H, Potassium Level 3.5, Chloride Level 123H, Carbon Dioxide Level 22, Anion Gap 12, Blood Urea Nitrogen 66H, Creatinine 2.6H, Estimat Glomerular Filtration Rate , Glucose Level 136H, Uric Acid 10.9H, Calcium Level 9.4, Phosphorus Level 3.0, Magnesium Level 2.4, Iron Level 53, Total Iron Binding Capacity 128L, Percent Iron Saturation 41, Unsaturated Iron Binding 75L , Ferritin 437H, Total Bilirubin 0.7, Gamma Glutamyl Transpeptidase 9, Aspartate Amino Transf (AST/SGOT) 25, Alanine Aminotransferase (ALT/SGPT) 30, Alkaline Phosphatase 86, Troponin I 0.049, Pro-B-Type Natriuretic Peptide 3575H , Total Protein 6.2L, Albumin 2.4L, Globulin 3.8, Albumin/Globulin Ratio 0.6L, Triglycerides Level 82, Cholesterol Level 99, LDL Cholesterol 42, HDL Cholesterol 45, Cholesterol/HDL Ratio 2.2L, Vitamin B12 Level > 2000H, Folate 17.5, Thyroid Stimulating Hormone (TSH) 3.752H, Cortisol AM Sample 13.3, Random Vancomycin Level 14.7 Height (Feet): 5 Height (Inches): 2.00 Weight (Pounds): 187 Objective PE General Appearance: lethargic ++2l NC Lines, tubes and drains: peripheral HEENT: normocephalic, atraumatic Neck: normal alignment Respiratory/Chest: lungs clear, normal breath sounds Cardiovascular/Chest: normal peripheral pulses, normal rate Abdomen: non tender, soft, no organomegaly Extremities: non-tender, normal inspection : Blane Peralta MD Jan 08, 2019 18:15
--- NOTE | 2019-01-08 19:06 | Cardiac Electrophysiology PN ---
Assessment/Plan Assessment/Plan 1. Atrial fibrillation. The rate is currently controlled. Off anticoagulation in view of thrombocytopenia. 2. Status post defibrillator. Will try to find the brand and interrogate 3. Congestive heart failure. Echocardiogram EF 35% 4. Severe hypernatremia and renal failure. The patient is on IV fluids per Dr. Wells. 5. History of hypertension. Off Coreg e. 6. Possible pneumonia. 7. Altered mental status. 8. Thrombocytopenia. Subjective Subjective No Events Objective Last 24 Hour Vital Signs Date Time Temp Pulse Resp B/P (MAP) Pulse Ox O2 Delivery O2 Flow Rate FiO2 01/08/19 16:00 Nasal Cannula 2.0 01/08/19 16:00 70 01/08/19 16:00 98.1 70 18 130/65 (86) 99 01/08/19 12:00 72 01/08/19 12:00 97.3 72 22 132/61 (84) 99 01/08/19 12:00 Nasal Cannula 2.0 01/08/19 08:00 Nasal Cannula 2.0 01/08/19 08:00 97.5 70 28 112/71 (85) 100 01/08/19 08:00 70 01/08/19 04:00 Nasal Cannula 2.0 01/08/19 04:00 98.4 70 28 117/53 (74) 96 01/08/19 04:00 70 01/08/19 00:00 70 01/08/19 00:00 Nasal Cannula 2.0 01/08/19 00:00 97.4 70 25 116/60 (78) 98 01/07/19 20:00 Nasal Cannula 2.0 01/07/19 20:00 70 01/07/19 20:00 98.3 70 20 112/52 (72) 97 Intake and Output 01/07/19 01/08/19 19:00 07:00 Intake Total 1943.834 ml 1273.333 ml Output Total 250 ml 200 ml Balance 1693.834 ml 1073.333 ml Intake IV Total 1943.834 ml 1273.333 ml Output Urine Total 250 ml 200 ml # Bowel Movements 1 Laboratory Tests Test 01/08/19 05:54 White Blood Count 4.6 K/UL (4.8-10.8) L Red Blood Count 2.61 M/UL (4.20-5.40) L Hemoglobin 8.2 G/DL (12.0-16.0) L Hematocrit 26.8 % (37.0-47.0) L Mean Corpuscular Volume 103 FL (80-99) H Mean Corpuscular Hemoglobin 31.3 PG (27.0-31.0) H Mean Corpuscular Hemoglobin Concent 30.5 G/DL (32.0-36.0) L Red Cell Distribution Width 16.7 % (11.6-14.8) H Platelet Count 41 K/UL (150-450) L Mean Platelet Volume 13.7 FL (6.5-10.1) H Neutrophils (%) (Auto) % (45.0-75.0) Lymphocytes (%) (Auto) % (20.0-45.0) Monocytes (%) (Auto) % (1.0-10.0) Eosinophils (%) (Auto) % (0.0-3.0) Basophils (%) (Auto) % (0.0-2.0) Differential Total Cells Counted 100 Neutrophils % (Manual) 86 % (45-75) H Lymphocytes % (Manual) 4 % (20-45) L Monocytes % (Manual) 3 % (1-10) Eosinophils % (Manual) 1 % (0-3) Basophils % (Manual) 0 % (0-2) Band Neutrophils 6 % (0-8) Platelet Estimate Decreased L Platelet Morphology Normal Anisocytosis 1+ Macrocytosis 1+ Sodium Level 157 MMOL/L (136-145) H Potassium Level 3.5 MMOL/L (3.5-5.1) Chloride Level 123 MMOL/L (98-107) H Carbon Dioxide Level 22 MMOL/L (21-32) Anion Gap 12 mmol/L (5-15) Blood Urea Nitrogen 66 mg/dL (7-18) H Creatinine 2.6 MG/DL (0.55-1.30) H Estimat Glomerular Filtration Rate mL/min (>60) Glucose Level 136 MG/DL (74-106) H Uric Acid 10.9 MG/DL (2.6-7.2) H Calcium Level 9.4 MG/DL (8.5-10.1) Phosphorus Level 3.0 MG/DL (2.5-4.9) Magnesium Level 2.4 MG/DL (1.8-2.4) Iron Level 53 ug/dL (50-175) Total Iron Binding Capacity 128 ug/dL (250-450) L Percent Iron Saturation 41 % (15-50) Unsaturated Iron Binding 75 ug/dL (112-346) L Ferritin 437 NG/ML (8-388) H Total Bilirubin 0.7 MG/DL (0.2-1.0) Gamma Glutamyl Transpeptidase 9 U/L (5-85) Aspartate Amino Transf (AST/SGOT) 25 U/L (15-37) Alanine Aminotransferase (ALT/SGPT) 30 U/L (12-78) Alkaline Phosphatase 86 U/L (46-116) Troponin I 0.049 ng/mL (0.000-0.056) Pro-B-Type Natriuretic Peptide 3575 pg/mL (0-125) H Total Protein 6.2 G/DL (6.4-8.2) L Albumin 2.4 G/DL (3.4-5.0) L Globulin 3.8 g/dL Albumin/Globulin Ratio 0.6 (1.0-2.7) L Triglycerides Level 82 MG/DL (30-150) Cholesterol Level 99 MG/DL (< 200) LDL Cholesterol 42 mg/dL (<100) HDL Cholesterol 45 MG/DL (40-60) Cholesterol/HDL Ratio 2.2 (3.3-4.4) L Vitamin B12 Level > 2000 PG/ML (193-986) H Folate 17.5 NG/ML (8.6-58.9) Thyroid Stimulating Hormone (TSH) 3.752 uiU/mL (0.358-3.740) Cortisol AM Sample 13.3 UG/DL Random Vancomycin Level 14.7 ug/mL Microbiology Date/Time Source Procedure Growth Status 01/06/19 17:25 Blood Blood Culture - Preliminary NO GROWTH AFTER 24 HOURS Resulted 01/06/19 17:00 Blood Blood Culture - Preliminary NO GROWTH AFTER 24 HOURS Resulted 01/07/19 11:30 Urine,Clean Catch Urine Culture - Preliminary Gram Negative Bacillus 1 Resulted 01/06/19 17:35 Urine,Clean Catch Urine Culture - Preliminary Escherichia Coli Resulted Objective HEAD AND NECK: Shows mild JVD. LUNGS: Decreased breath sounds. CARDIOVASCULAR: Irregular S1 and S2 with no gallop. Defibrillator in left subclavian. ABDOMEN: Soft. EXTREMITIES: No pitting edema. Gabe Hi MD Jan 08, 2019 19:06
--- NOTE | 2019-01-08 19:30 | NUR ---
NURSE NOTES: Report received from Thao CRUM. Pt is resting in bed in stable condition. Pt is lethargic and non-verbal but does open eyes to repositioning. Pt is on 2L O2 via nasal cannula and breathing is even, but slightly labored. No acute distress noted. Will suction PRN with assistance of RT. Pt IV site is L AC #20g and is asymptomatic, patent, and intact and running IV fluids at rx rate. Bow[place] is noted to be patent and draining to gravity as well. Bed placed in lowest position with brake engaged, side rails up x3 and bed alarm on. Call light and side table placed within reach. Will continue to monitor.
--- NOTE | 2019-01-08 19:38 | NUR ---
HAND-OFF: Report given to Gracia CRUM. Pt is resting in bed in stable condition. Endorsed plan of care.
[2019-01-08 20:00] VITALS: BP 98/52
--- NOTE | 2019-01-08 20:20 | Diagnostic Imaging Report ---
EXAM: US Abdomen Complete CLINICAL HISTORY: MASS TECHNIQUE: Real-time ultrasound of the abdomen (complete) with image documentation. COMPARISON: No relevant prior studies available. FINDINGS: Liver: Measures up to 15.6 cm. Increased echogenicity which may be secondary to technique versus hepatic steatosis. No mass. No intrahepatic bile duct dilation. Gallbladder: Sludge within the gallbladder. No stones, wall thickening or pericholecystic fluid. Common bile duct: Unremarkable as visualized. No stones. No dilation. Pancreas: Unremarkable as visualized. Kidneys: Probable small cyst within left kidney. Increased echogenicity which may be technique versus chronic kidney disease. No stones. No hydronephrosis. Spleen: Unremarkable. No splenomegaly. Aorta: Unremarkable. No aneurysm. Inferior vena cava: Unremarkable. IMPRESSION: Sludge within the gallbladder. No stones, wall thickening or pericholecystic fluid.
[2019-01-08] MEDS ORDERED: Tubing IV Secondary IV ONE (20:30)
[2019-01-08 21:16] LABS: INR 1.2 (0.9-1.1)
[2019-01-09] VITALS: BP 105/74
[2019-01-09] MEDS: Meropenem 500 MG in NS 55 ML IVPB SCH ×2 (01:29→13:26)
[2019-01-09 04:00] VITALS: BP 128/68
--- NOTE | 2019-01-09 04:51 | NUR ---
NURSE NOTES: Dudley Mueller, microbiology department, called to report pt results positive for MRSA nares. Will notify MD Vences.
--- NOTE | 2019-01-09 07:38 | NUR ---
NURSE NOTES: Voicemail left for MD Vences to notify pt has new positive result for MRSA nares. Awaiting call back for further instructions. Pt in stable condition. Will continue to monitor.
[2019-01-09 08:00] VITALS: BP 135/62
--- NOTE | 2019-01-09 08:10 | NUR ---
NURSE NOTES: MD Vences return call and made aware of results. No new orders at this time.
[2019-01-09] MEDS: Pantoprazole Inj IVP SCH ×2 (08:24→21:29)
[2019-01-09 08:44] LABS: HEMATOCRIT 27.6 % (37.0-47.0); HEMOGLOBIN 8.4 G/DL (12.0-16.0); MEAN CORPUSCULAR VOLUME 102 FL (80-99); PLATELET COUNT 28 K/UL (150-450); RED BLOOD COUNT 2.69 M/UL (4.20-5.40); RED CELL DISTRIBUTION WIDTH 16.9 % (11.6-14.8)
[2019-01-09 09:07] LABS: ALANINE AMINOTRANSFERASE 28 U/L (12-78); ALBUMIN/GLOBULIN RATIO 0.6 (1.0-2.7); ALKALINE PHOSPHATASE 81 U/L (46-116); ANION GAP 6 mmol/L (5-15); ASPARTATE AMINO TRANSFERASE 23 U/L (15-37); BILIRUBIN,TOTAL 0.7 MG/DL (0.2-1.0); BLOOD UREA NITROGEN 53 mg/dL (7-18); CALCIUM 9.1 MG/DL (8.5-10.1); CARBON DIOXIDE 24 MMOL/L (21-32); CHLORIDE 119 MMOL/L (98-107); CREATININE 2.5 MG/DL (0.55-1.30); PHOSPHORUS 3.5 MG/DL (2.5-4.9); POTASSIUM 3.3 MMOL/L (3.5-5.1); SODIUM 149 MMOL/L (136-145)
--- NOTE | 2019-01-09 10:00 | NUR ---
NURSE NOTES: RT called to assist with suctioning.
--- NOTE | 2019-01-09 10:27 | NUR ---
NURSE NOTES: Rectal temperature noted to be 92.5 F. MD Mederos notified and aware. Pt placed on Ofelia Hugger. BHARATH Franklin aware of situation. Per , okay to continue IV fluids as rx. Will continue to monitor.
--- NOTE | 2019-01-09 10:49 | NUR ---
NURSE NOTES: MD Mederos aware of all abnormal labs. No new orders at this time. Will continue to monitor.
--- NOTE | 2019-01-09 10:51 | General Progress Note ---
Assessment/Plan Assessment/Plan #Severe Sepsis #MRSA pneumonia #E. coli UTI #Acute metabolic encephalopathy superimposed on severe dementia -continue vanco and meropenem -ordered warming blanket again -ID following -continue to hold anti-hypertensives #Hypernatremia -improved -continue D5W -Nephrology following #Chronic sCHF s/p AICD #Atrial fibrillation #HTN #CAD -continue to hold all anti-hypertensives -Cardiology consulted VTE PPx Heparin SC DNR/DNI I spent 45 minutes on this patient's case, and 25 minutes was dedicated to counseling and/or care coordination. Subjective Date patient seen: Jan 09, 2019 Time patient seen: 09:30 ROS Limited/Unobtainable: Yes Allergies: Coded Allergies: No Known Allergies (Unverified , 01/06/19) Subjective Medicine follow up for severe sepsis, suspected HCAP, hypernatremia. Noted to be hypothermic to 92 again this morning Objective Last 24 Hour Vital Signs Date Time Temp Pulse Resp B/P (MAP) Pulse Ox O2 Delivery O2 Flow Rate FiO2 01/09/19 09:00 Nasal Cannula 2.0 01/09/19 08:00 92.5 72 20 135/62 (86) 99 01/09/19 08:00 72 01/09/19 04:00 70 01/09/19 04:00 97.0 71 20 128/68 (88) 99 01/09/19 00:00 97.0 74 20 105/74 (84) 95 01/09/19 00:00 72 01/08/19 23:43 99 Nasal Cannula 2.0 28 01/08/19 23:43 Nasal Cannula 2.0 28 01/08/19 21:00 Nasal Cannula 2.0 01/08/19 20:00 70 01/08/19 20:00 96.7 70 18 98/52 (67) 94 01/08/19 16:00 Nasal Cannula 2.0 01/08/19 16:00 70 01/08/19 16:00 98.1 70 18 130/65 (86) 99 01/08/19 12:00 72 01/08/19 12:00 97.3 72 22 132/61 (84) 99 01/08/19 12:00 Nasal Cannula 2.0 Intake and Output 01/08/19 01/09/19 18:59 06:59 Intake Total 855 ml Output Total 250 ml 900 ml Balance 605 ml -900 ml Intake IV Total 855 ml Output Urine Total 250 ml 900 ml Laboratory Tests 01/08/19 20:20: Sickle Cell Screen [Pending], Haptoglobin [Pending], Prothrombin Time 12.3H, Prothromb Time International Ratio 1.2H, Fibrinogen 424H, Lactic Acid Level 1.40 , Soluble Transferrin Receptor [Pending], Total Protein (PEP) [Pending], Albumin (PEP) [Pending], Globulin (PEP) [Pending], Albumin/Globulin Ratio [ Pending], Jeryy-4-Cgtjjoncz [Pending], Cexgw-1-Pqikarswz [Pending], Beta Globulins [Pending], Beta Gamma Globulin [Pending], PEP Abnormal Protein Bands [ Pending], Protein Electrophoresis Interpret [Pending], Alpha Fetoprotein [ Pending], Carcinoembryonic Antigen [Pending], CA 15-3 Antigen [Pending], CA 19- 9 Antigen [Pending], CA 125 Antigen [Pending], Methylmalonic Acid [Pending], Hepatitis A IgM Antibody [Pending], Hepatitis B Surface Antigen [Pending], Hepatitis B Core IgM Antibody [Pending], Hepatitis C Antibody [Pending] 01/09/19 07:50: Albumin/Globulin Ratio 0.6L, White Blood Count 5.0, Red Blood Count 2.69L, Hemoglobin 8.4L, Hematocrit 27.6L, Mean Corpuscular Volume 102H, Mean Corpuscular Hemoglobin 31.3H, Mean Corpuscular Hemoglobin Concent 30.6L, Red Cell Distribution Width 16.9H, Platelet Count 28L, Mean Platelet Volume 13.0H, Neutrophils (%) (Auto) , Lymphocytes (%) (Auto) , Monocytes (%) (Auto) , Eosinophils (%) (Auto) , Basophils (%) (Auto) , Neutrophils % (Manual) [Pending] , Lymphocytes % (Manual) [Pending], Platelet Estimate [Pending], Platelet Morphology [Pending], Sodium Level 149H, Potassium Level 3.3L, Chloride Level 119H, Carbon Dioxide Level 24, Anion Gap 6, Blood Urea Nitrogen 53H, Creatinine 2.5H, Estimat Glomerular Filtration Rate , Glucose Level 185H, Uric Acid 10.0H, Calcium Level 9.1, Phosphorus Level 3.5, Magnesium Level 2.3, Total Bilirubin 0.7, Aspartate Amino Transf (AST/SGOT) 23, Alanine Aminotransferase (ALT/SGPT) 28, Alkaline Phosphatase 81, C-Reactive Protein, Quantitative 10.7H, Pro-B-Type Natriuretic Peptide 4297H, Total Protein 5.5L, Albumin 2.0L, Globulin 3.5 Height (Feet): 5 Height (Inches): 2.00 Weight (Pounds): 187 General Appearance: no apparent distress, lethargic Neck: non-tender, normal alignment Cardiovascular: normal peripheral pulses, normal rate Respiratory/Chest: chest wall non-tender, lungs clear Abdomen: non tender, soft Rome Diamond MD Jan 09, 2019 10:51
--- NOTE | 2019-01-09 11:00 | NUR ---
HAND-OFF: Report given to Corinne GALINDO. Endorsed plan of care.
--- NOTE | 2019-01-09 11:15 | NUR ---
NURSE NOTES: received patient in bed, nonverbal. arousable by tactile stimuli. patient is on bearhugger due to low temp. reposition. kept hob elevated. siderails are up x3. call light is within reach. will cont the plan of care.
--- NOTE | 2019-01-09 11:57 | NUR ---
NURSE NOTES: Dr Mederos made aware of the K+ level today. new order obtained.
[2019-01-09 12:00] VITALS: BP 110/66
--- NOTE | 2019-01-09 13:26 | Cardiac Electrophysiology PN ---
Assessment/Plan Assessment/Plan 1. Atrial fibrillation. The rate is controlled and V pacing. Off anticoagulation in view of thrombocytopenia. 2. Status post defibrillator. Awaiting brand for interrogation 3. Congestive heart failure. Echocardiogram EF 35% 4. Severe hypernatremia and renal failure. The patient is on IV fluids per Dr. Wells. 5. History of hypertension. Off Coreg for now 6. Possible pneumonia. 7. Altered mental status. 8. Thrombocytopenia. 9. MRSA PNA on Abx 10. DNR 11. Hx of CVA with aphasia DW RN and Dr Mederos Subjective Subjective Lethargic, hypothermic and DNR Objective Last 24 Hour Vital Signs Date Time Temp Pulse Resp B/P (MAP) Pulse Ox O2 Delivery O2 Flow Rate FiO2 01/09/19 09:00 Nasal Cannula 2.0 01/09/19 08:00 92.5 72 20 135/62 (86) 99 01/09/19 08:00 72 01/09/19 04:00 70 01/09/19 04:00 97.0 71 20 128/68 (88) 99 01/09/19 00:00 97.0 74 20 105/74 (84) 95 01/09/19 00:00 72 01/08/19 23:43 99 Nasal Cannula 2.0 28 01/08/19 23:43 Nasal Cannula 2.0 28 01/08/19 21:00 Nasal Cannula 2.0 01/08/19 20:00 70 01/08/19 20:00 96.7 70 18 98/52 (67) 94 01/08/19 16:00 Nasal Cannula 2.0 01/08/19 16:00 70 01/08/19 16:00 98.1 70 18 130/65 (86) 99 Intake and Output 01/08/19 01/09/19 19:00 07:00 Intake Total 755 ml Output Total 250 ml 900 ml Balance 505 ml -900 ml Intake IV Total 755 ml Output Urine Total 250 ml 900 ml Laboratory Tests Test 01/08/19 20:20 01/09/19 07:50 Sickle Cell Screen Pending Haptoglobin Pending Prothrombin Time 12.3 SEC (9.30-11.50) H Prothromb Time International Ratio 1.2 (0.9-1.1) H Fibrinogen 424 mg/dL (200-400) H Lactic Acid Level 1.40 mmol/L (0.4-2.0) Soluble Transferrin Receptor Pending Total Protein (PEP) Pending Albumin (PEP) Pending Globulin (PEP) Pending Albumin/Globulin Ratio Pending 0.6 (1.0-2.7) L Joiyx-9-Scjcbjeur Pending Rwzkp-8-Bocfjhwcu Pending Beta Globulins Pending Beta Gamma Globulin Pending PEP Abnormal Protein Bands Pending Protein Electrophoresis Interpret Pending Alpha Fetoprotein Pending Carcinoembryonic Antigen Pending CA 15-3 Antigen Pending CA 19-9 Antigen Pending CA 125 Antigen Pending Methylmalonic Acid Pending Hepatitis A IgM Antibody Pending Hepatitis B Surface Antigen Pending Hepatitis B Core IgM Antibody Pending Hepatitis C Antibody Pending White Blood Count 5.0 K/UL (4.8-10.8) Red Blood Count 2.69 M/UL (4.20-5.40) L Hemoglobin 8.4 G/DL (12.0-16.0) L Hematocrit 27.6 % (37.0-47.0) L Mean Corpuscular Volume 102 FL (80-99) H Mean Corpuscular Hemoglobin 31.3 PG (27.0-31.0) H Mean Corpuscular Hemoglobin Concent 30.6 G/DL (32.0-36.0) L Red Cell Distribution Width 16.9 % (11.6-14.8) H Platelet Count 28 K/UL (150-450) L Mean Platelet Volume 13.0 FL (6.5-10.1) H Neutrophils (%) (Auto) % (45.0-75.0) Lymphocytes (%) (Auto) % (20.0-45.0) Monocytes (%) (Auto) % (1.0-10.0) Eosinophils (%) (Auto) % (0.0-3.0) Basophils (%) (Auto) % (0.0-2.0) Differential Total Cells Counted 100 Neutrophils % (Manual) 87 % (45-75) H Lymphocytes % (Manual) 5 % (20-45) L Monocytes % (Manual) 8 % (1-10) Eosinophils % (Manual) 0 % (0-3) Basophils % (Manual) 0 % (0-2) Band Neutrophils 0 % (0-8) Platelet Estimate Decreased L Platelet Morphology Giant Platelets Occasional Hypochromasia 1+ Anisocytosis 1+ Macrocytosis 1+ Sodium Level 149 MMOL/L (136-145) H Potassium Level 3.3 MMOL/L (3.5-5.1) L Chloride Level 119 MMOL/L (98-107) H Carbon Dioxide Level 24 MMOL/L (21-32) Anion Gap 6 mmol/L (5-15) Blood Urea Nitrogen 53 mg/dL (7-18) H Creatinine 2.5 MG/DL (0.55-1.30) H Estimat Glomerular Filtration Rate mL/min (>60) Glucose Level 185 MG/DL (74-106) H Uric Acid 10.0 MG/DL (2.6-7.2) H Calcium Level 9.1 MG/DL (8.5-10.1) Phosphorus Level 3.5 MG/DL (2.5-4.9) Magnesium Level 2.3 MG/DL (1.8-2.4) Total Bilirubin 0.7 MG/DL (0.2-1.0) Aspartate Amino Transf (AST/SGOT) 23 U/L (15-37) Alanine Aminotransferase (ALT/SGPT) 28 U/L (12-78) Alkaline Phosphatase 81 U/L (46-116) C-Reactive Protein, Quantitative 10.7 mg/dL (0.00-0.90) H Pro-B-Type Natriuretic Peptide 4297 pg/mL (0-125) H Total Protein 5.5 G/DL (6.4-8.2) L Albumin 2.0 G/DL (3.4-5.0) L Globulin 3.5 g/dL Microbiology Date/Time Source Procedure Growth Status 01/06/19 17:25 Blood Blood Culture - Preliminary NO GROWTH AFTER 48 HOURS Resulted 01/06/19 17:00 Blood Blood Culture - Preliminary NO GROWTH AFTER 48 HOURS Resulted 01/08/19 07:00 Sputum Induced Gram Stain Pending Resulted 01/08/19 07:00 Sputum Culture - Preliminary Staphylococcus Aureus Resulted 01/06/19 18:10 Nasal Nares MRSA Culture - Final Staphylococcus Aureus - Mrsa Complete 01/07/19 11:30 Urine,Clean Catch Urine Culture - Final Escherichia Coli Complete 01/06/19 17:35 Urine,Clean Catch Urine Culture - Final Escherichia Coli Complete 01/06/19 18:10 Rectum VRE Culture - Final NO VANCOMYCIN RESISTANT ENTEROCOCCUS ... Complete 01/06/19 18:10 Rectum - Final NO CARBAPENEM-RESISTANT ENTEROBACTERI... Complete Objective HEAD AND NECK: Mild JVD. LUNGS: Decreased breath sounds. CARDIOVASCULAR: Irregular S1 and S2 with no gallop. Defibrillator in left subclavian. ABDOMEN: Soft. EXTREMITIES: No pitting edema. Gabe Hi MD Jan 09, 2019 13:25
--- NOTE | 2019-01-09 14:18 | Infectious Diseases Prog Note ---
Assessment/Plan Assessment/Plan ASSESSMENT AND PLAN: 1. e.coli uti, staph aureus pna, sepsis, sirs, leukopenia, hypothermia, ams/ lethargy - - meropenem and vancomycin - day # 3 abx - f/u on cultures, labs and chest x-ray - d/w Dr. Mederos 2. The patient has severe hypernatremia. 3. Dehydration. 4. Acute kidney injury. 5. Elevated creatinine. 6. Intravenous fluids. 7. Hypothermia. 8. Pancytopenia. Workup per Hematology/Oncology. 9. Hypertension. 10. Coronary artery disease. 11. Congestive heart failure. 12. Automatic implanted cardioverter. 13. Subdural hematoma. 14. Severe dementia. 15. Aspiration risk. 16. No known drug allergies. 17. Social history is negative. 18. Family history is noncontributory. 19. MAR was noted. 20. Case was discussed with RN. 21. Encephalopathy. 22. Skin care protocol. 23. The patient is DNR/DNI. 24. aspiration precautions 25. mrsa colonization Subjective Constitutional: Reports: fatigue, other - lethargic ; Denies: fever HEENT: Denies: congestion Respiratory: Denies: shortness of breath Cardiovascular: Denies: chest pain Gastrointestinal/Abdominal: Denies: nausea, vomiting, diarrhea Genitourinary: Reports: other - + pendleton Neurologic: Reports: other - na Psychiatric: Denies: depression Skin: Denies: rash Hematologic: Denies: bleeding Musculoskeletal: Reports: other - na Allergies: Coded Allergies: No Known Allergies (Unverified , 01/06/19) Objective Vital Signs Last 24 Hour Vital Signs Date Time Temp Pulse Resp B/P (MAP) Pulse Ox O2 Delivery O2 Flow Rate FiO2 01/09/19 12:00 92.0 71 20 110/66 (81) 100 01/09/19 09:00 Nasal Cannula 2.0 01/09/19 08:00 92.5 72 20 135/62 (86) 99 01/09/19 08:00 72 01/09/19 04:00 70 01/09/19 04:00 97.0 71 20 128/68 (88) 99 01/09/19 00:00 97.0 74 20 105/74 (84) 95 01/09/19 00:00 72 01/08/19 23:43 99 Nasal Cannula 2.0 28 01/08/19 23:43 Nasal Cannula 2.0 28 01/08/19 21:00 Nasal Cannula 2.0 01/08/19 20:00 70 01/08/19 20:00 96.7 70 18 98/52 (67) 94 01/08/19 16:00 Nasal Cannula 2.0 01/08/19 16:00 70 01/08/19 16:00 98.1 70 18 130/65 (86) 99 Height (Feet): 5 Height (Inches): 2.00 Weight (Pounds): 187 General Appearance: no acute distress, other - lethargic, weak HEENT: normocephalic, atraumatic, anicteric, mucous membranes moist Respiratory/Chest: crackles/rales, rhonchi - bilaterally Cardiovascular: normal rate, regular rhythm, no gallop/murmur, no JVD Abdomen: normal bowel sounds, soft, non tender, no organomegaly, non distended Genitourinary: other - + pendleton - urine cloudy Extremities: no cyanosis Skin: no rash Neurologic/Psychiatric: motor weakness, other - lethargic Lymphatic: no neck adenopathy Musculoskeletal: no effusion Objective 01/06 - chest x-ray - Comparison: none Findings: There is a left chest pacemaker, with an orphaned lead as well as epicardial leads. Surgical clips are seen in the left axilla. The heart is borderline enlarged. The lungs demonstrate possible hazy infiltrate in left perihilar region Impression: Possible left perihilar infiltrate Borderline cardiomegaly Other findings as noted Microbiology Date/Time Source Procedure Growth Status 01/06/19 17:25 Blood Blood Culture - Preliminary NO GROWTH AFTER 48 HOURS Resulted 01/06/19 17:00 Blood Blood Culture - Preliminary NO GROWTH AFTER 48 HOURS Resulted 01/08/19 07:00 Sputum Induced Gram Stain - Final Resulted 01/08/19 07:00 Sputum Culture - Preliminary Staphylococcus Aureus Resulted 01/06/19 18:10 Nasal Nares MRSA Culture - Final Staphylococcus Aureus - Mrsa Complete 01/07/19 11:30 Urine,Clean Catch Urine Culture - Final Escherichia Coli Complete 01/06/19 17:35 Urine,Clean Catch Urine Culture - Final Escherichia Coli Complete 01/06/19 18:10 Rectum VRE Culture - Final NO VANCOMYCIN RESISTANT ENTEROCOCCUS ... Complete 01/06/19 18:10 Rectum - Final NO CARBAPENEM-RESISTANT ENTEROBACTERI... Complete Laboratory Tests Test 01/08/19 20:20 01/09/19 07:50 Sickle Cell Screen Pending Haptoglobin Pending Prothrombin Time 12.3 SEC (9.30-11.50) H Prothromb Time International Ratio 1.2 (0.9-1.1) H Fibrinogen 424 mg/dL (200-400) H Lactic Acid Level 1.40 mmol/L (0.4-2.0) Soluble Transferrin Receptor Pending Total Protein (PEP) Pending Albumin (PEP) Pending Globulin (PEP) Pending Albumin/Globulin Ratio Pending 0.6 (1.0-2.7) L [id number] Pending Jqzxy-5-Ghfcgzmqr Pending Beta Globulins Pending Beta Gamma Globulin Pending PEP Abnormal Protein Bands Pending Protein Electrophoresis Interpret Pending Alpha Fetoprotein Pending Carcinoembryonic Antigen Pending CA 15-3 Antigen Pending CA 19-9 Antigen Pending CA 125 Antigen Pending Methylmalonic Acid Pending Hepatitis A IgM Antibody Pending Hepatitis B Surface Antigen Pending Hepatitis B Core IgM Antibody Pending Hepatitis C Antibody Pending White Blood Count 5.0 K/UL (4.8-10.8) Red Blood Count 2.69 M/UL (4.20-5.40) L Hemoglobin 8.4 G/DL (12.0-16.0) L Hematocrit 27.6 % (37.0-47.0) L Mean Corpuscular Volume 102 FL (80-99) H Mean Corpuscular Hemoglobin 31.3 PG (27.0-31.0) H Mean Corpuscular Hemoglobin Concent 30.6 G/DL (32.0-36.0) L Red Cell Distribution Width 16.9 % (11.6-14.8) H Platelet Count 28 K/UL (150-450) L Mean Platelet Volume 13.0 FL (6.5-10.1) H Neutrophils (%) (Auto) % (45.0-75.0) Lymphocytes (%) (Auto) % (20.0-45.0) Monocytes (%) (Auto) % (1.0-10.0) Eosinophils (%) (Auto) % (0.0-3.0) Basophils (%) (Auto) % (0.0-2.0) Differential Total Cells Counted 100 Neutrophils % (Manual) 87 % (45-75) H Lymphocytes % (Manual) 5 % (20-45) L Monocytes % (Manual) 8 % (1-10) Eosinophils % (Manual) 0 % (0-3) Basophils % (Manual) 0 % (0-2) Band Neutrophils 0 % (0-8) Platelet Estimate Decreased L Platelet Morphology Giant Platelets Occasional Hypochromasia 1+ Anisocytosis 1+ Macrocytosis 1+ Sodium Level 149 MMOL/L (136-145) H Potassium Level 3.3 MMOL/L (3.5-5.1) L Chloride Level 119 MMOL/L (98-107) H Carbon Dioxide Level 24 MMOL/L (21-32) Anion Gap 6 mmol/L (5-15) Blood Urea Nitrogen 53 mg/dL (7-18) H Creatinine 2.5 MG/DL (0.55-1.30) H Estimat Glomerular Filtration Rate mL/min (>60) Glucose Level 185 MG/DL (74-106) H Uric Acid 10.0 MG/DL (2.6-7.2) H Calcium Level 9.1 MG/DL (8.5-10.1) Phosphorus Level 3.5 MG/DL (2.5-4.9) Magnesium Level 2.3 MG/DL (1.8-2.4) Total Bilirubin 0.7 MG/DL (0.2-1.0) Aspartate Amino Transf (AST/SGOT) 23 U/L (15-37) Alanine Aminotransferase (ALT/SGPT) 28 U/L (12-78) Alkaline Phosphatase 81 U/L (46-116) C-Reactive Protein, Quantitative 10.7 mg/dL (0.00-0.90) H Pro-B-Type Natriuretic Peptide 4297 pg/mL (0-125) H Total Protein 5.5 G/DL (6.4-8.2) L Albumin 2.0 G/DL (3.4-5.0) L Globulin 3.5 g/dL Current Medications Medications (Trade) Dose Ordered Sig/Nuria Route PRN Reason Start Time Stop Time Status Last Admin Dose Admin Dextrose 1,000 ml @ 100 mls/hr Q10H IV 01/08/19 15:00 02/05/19 08:04 01/09/19 10:34 Dextrose (Dextrose 50%) 25 ml Q30M PRN IV Hypoglycemia 01/08/19 15:00 02/05/19 18:59 Dextrose (Dextrose 50%) 50 ml Q30M PRN IV Hypoglycemia 01/08/19 15:00 02/05/19 18:59 Lorazepam (Ativan 2mg/ml 1ml) 1 mg Q4H PRN IV For Anxiety 01/08/19 15:00 01/14/19 14:59 01/08/19 16:57 Meropenem 500 mg/ Sodium Chloride 55 ml @ 110 mls/hr Q12H IVPB 01/09/19 00:00 01/12/19 11:59 01/09/19 13:26 Pantoprazole (Protonix) 40 mg EVERY 12 HOURS IVP 01/08/19 21:00 02/06/19 20:59 01/09/19 08:24 Vancomycin HCl (Vanco rx to dose) 1 ea DAILY PRN MISC Per rx protocol 01/08/19 15:00 02/07/19 14:59 Ninfa Vences MD Jan 09, 2019 14:18
[2019-01-09] MEDS ORDERED: Potassium Chl 10mEq/100ml 110 ML IV SCH (15:00)
--- NOTE | 2019-01-09 15:00 | NUR ---
NURSE NOTES: rechecked temp 95.5, axillary. bearhug applied. repositioned. keep hob elevated. will cont to monitor.
--- NOTE | 2019-01-09 15:04 | Nephrology Progress Note ---
Assessment/Plan Problem List: (1) Acute renal failure (2) Dehydration (3) Hypernatremia (4) Anemia Assessment acute Renal Failure Cr unchanged Sepsis / UTI / Pneumonia Acute metabolic Encephalopathy Hypernatremia AICD AT FIB CAD HTN presents with Low BP Anemia DNR DNI Plan Free water administration watch for chf pendleton hold mind altering meds protonix IV DC Motrin !!! Subjective ROS Limited/Unobtainable: No Constitutional: Reports: malaise Objective Objective Last 24 Hour Vital Signs Date Time Temp Pulse Resp B/P (MAP) Pulse Ox O2 Delivery O2 Flow Rate FiO2 01/09/19 12:00 92.0 71 20 110/66 (81) 100 01/09/19 09:00 Nasal Cannula 2.0 01/09/19 08:00 92.5 72 20 135/62 (86) 99 01/09/19 08:00 72 01/09/19 04:00 70 01/09/19 04:00 97.0 71 20 128/68 (88) 99 01/09/19 00:00 97.0 74 20 105/74 (84) 95 01/09/19 00:00 72 01/08/19 23:43 99 Nasal Cannula 2.0 28 01/08/19 23:43 Nasal Cannula 2.0 28 01/08/19 21:00 Nasal Cannula 2.0 01/08/19 20:00 70 01/08/19 20:00 96.7 70 18 98/52 (67) 94 01/08/19 16:00 Nasal Cannula 2.0 01/08/19 16:00 70 01/08/19 16:00 98.1 70 18 130/65 (86) 99 Intake and Output 01/08/19 01/09/19 19:00 07:00 Intake Total 755 ml Output Total 250 ml 900 ml Balance 505 ml -900 ml Intake IV Total 755 ml Output Urine Total 250 ml 900 ml Laboratory Tests 01/08/19 20:20: Sickle Cell Screen [Pending], Haptoglobin [Pending], Prothrombin Time 12.3H, Prothromb Time International Ratio 1.2H, Fibrinogen 424H, Lactic Acid Level 1.40 , Soluble Transferrin Receptor [Pending], Total Protein (PEP) [Pending], Albumin (PEP) [Pending], Globulin (PEP) [Pending], Albumin/Globulin Ratio [ Pending], Vywuj-[id number] [Pending], Bfvid-7-Ilawhybsf [Pending], Beta Globulins [Pending], Beta Gamma Globulin [Pending], PEP Abnormal Protein Bands [ Pending], Protein Electrophoresis Interpret [Pending], Alpha Fetoprotein [ Pending], Carcinoembryonic Antigen [Pending], CA 15-3 Antigen [Pending], CA 19- 9 Antigen [Pending], CA 125 Antigen [Pending], Methylmalonic Acid [Pending], Hepatitis A IgM Antibody [Pending], Hepatitis B Surface Antigen [Pending], Hepatitis B Core IgM Antibody [Pending], Hepatitis C Antibody [Pending] 01/09/19 07:50: Albumin/Globulin Ratio 0.6L, White Blood Count 5.0, Red Blood Count 2.69L, Hemoglobin 8.4L, Hematocrit 27.6L, Mean Corpuscular Volume 102H, Mean Corpuscular Hemoglobin 31.3H, Mean Corpuscular Hemoglobin Concent 30.6L, Red Cell Distribution Width 16.9H, Platelet Count 28L, Mean Platelet Volume 13.0H, Neutrophils (%) (Auto) , Lymphocytes (%) (Auto) , Monocytes (%) (Auto) , Eosinophils (%) (Auto) , Basophils (%) (Auto) , Differential Total Cells Counted 100, Neutrophils % (Manual) 87H, Lymphocytes % (Manual) 5L, Monocytes % (Manual) 8, Eosinophils % (Manual) 0, Basophils % (Manual) 0, Band Neutrophils 0 , Platelet Estimate DecreasedL, Platelet Morphology , Giant Platelets Occasional , Hypochromasia 1+, Anisocytosis 1+, Macrocytosis 1+, Sodium Level 149H, Potassium Level 3.3L, Chloride Level 119H, Carbon Dioxide Level 24, Anion Gap 6 , Blood Urea Nitrogen 53H, Creatinine 2.5H, Estimat Glomerular Filtration Rate , Glucose Level 185H, Uric Acid 10.0H, Calcium Level 9.1, Phosphorus Level 3.5, Magnesium Level 2.3, Total Bilirubin 0.7, Aspartate Amino Transf (AST/SGOT) 23, Alanine Aminotransferase (ALT/SGPT) 28, Alkaline Phosphatase 81, C-Reactive Protein, Quantitative 10.7H, Pro-B-Type Natriuretic Peptide 4297H, Total Protein 5.5L, Albumin 2.0L, Globulin 3.5 Height (Feet): 5 Height (Inches): 2.00 Weight (Pounds): 187 General Appearance: no apparent distress Cardiovascular: normal rate Respiratory/Chest: decreased breath sounds Abdomen: soft Objective no change Noe Wells MD Jan 09, 2019 15:04
[2019-01-09 16:00] VITALS: BP 113/62
--- NOTE | 2019-01-09 18:55 | NUR ---
HAND-OFF: Report given to Gracia.
--- NOTE | 2019-01-09 19:30 | NUR ---
NURSE NOTES: Report received from Corinne GALINDO. Pt is resting in bed in stable condition. Pt is non-verbal at baseline but is arousable to painful stimuli and repositioning. Pt opens eyes to voice intermittently. Pt is on 2L O2 via nasal cannula and breathing is even and unlabored. No acute distress noted. Oral suctioning done at bedside. IV site is noted to be L AC #20g and is asymptomatic, patent, and intact and running IV fluids at rx rate. Bed is placed in lowest position with brake engaged, side rails up x3, and bed alarm on. Call light and side table placed within reach. Ofelia ley noted to be in placed d/t decreased temperature on day shift. Will continue to monitor patient status.
[2019-01-09 20:00] VITALS: BP 119/55
[2019-01-10] VITALS: BP 123/54
[2019-01-10] MEDS: Meropenem 500 MG in NS 55 ML IVPB SCH ×3 (00:25→23:42)
[2019-01-10 04:00] VITALS: BP 101/57
--- NOTE | 2019-01-10 07:10 | NUR ---
HAND-OFF: Report given to Livier Lauren RN. Pt is resting in bed in stable condition. Endorsed plan of care.
--- NOTE | 2019-01-10 07:30 | NUR ---
NURSE NOTES: Received report from Gracia CRUM. Bed is in lowest position, side rails up X2, and call light is within reach. Will continue to monitor.
[2019-01-10 07:36] LABS: HEMATOCRIT 29.3 % (37.0-47.0); HEMOGLOBIN 9.2 G/DL (12.0-16.0); MEAN CORPUSCULAR VOLUME 103 FL (80-99); PLATELET COUNT 46 K/UL (150-450); RED BLOOD COUNT 2.86 M/UL (4.20-5.40); WHITE BLOOD COUNT 5.9 K/UL (4.8-10.8)
[2019-01-10 07:53] LABS: ANION GAP 7 mmol/L (5-15); BLOOD UREA NITROGEN 48 mg/dL (7-18); CALCIUM 9.4 MG/DL (8.5-10.1); CARBON DIOXIDE 22 MMOL/L (21-32); CHLORIDE 115 MMOL/L (98-107); CREATININE 2.6 MG/DL (0.55-1.30); SODIUM 144 MMOL/L (136-145)
[2019-01-10 08:00] VITALS: BP 120/66
[2019-01-10] MEDS: Pantoprazole Inj IVP SCH ×2 (08:15→20:35)
--- NOTE | 2019-01-10 11:19 | General Progress Note ---
Assessment/Plan Assessment/Plan #Severe Sepsis #MSSA pneumonia #E. coli UTI #Acute metabolic encephalopathy superimposed on severe dementia -continue vanco and meropenem -ID following -continue to hold anti-hypertensives -aspiration precautions #Hypernatremia -resolved -continue D5W -Nephrology following #Chronic sCHF s/p AICD #Atrial fibrillation #HTN #CAD -continue to hold all anti-hypertensives -Cardiology eval appreciated VTE PPx Heparin SC DNR/DNI I spent 45 minutes on this patient's case, and 25 minutes was dedicated to counseling and/or care coordination. Subjective Date patient seen: Jan 10, 2019 Time patient seen: 10:15 ROS Limited/Unobtainable: Yes Allergies: Coded Allergies: No Known Allergies (Unverified , 01/06/19) Subjective Medicine follow up for severe sepsis, suspected HCAP, hypernatremia. Remains lethargic Objective Last 24 Hour Vital Signs Date Time Temp Pulse Resp B/P (MAP) Pulse Ox O2 Delivery O2 Flow Rate FiO2 01/10/19 09:35 Nasal Cannula 2.0 28 01/10/19 09:35 98 Nasal Cannula 2.0 28 01/10/19 09:00 Nasal Cannula 2.0 01/10/19 08:00 70 01/10/19 08:00 99.2 72 20 120/66 (84) 99 01/10/19 04:00 81 01/10/19 04:00 99.7 71 25 101/57 (72) 96 01/10/19 00:00 99.5 72 19 123/54 (77) 95 01/10/19 00:00 71 01/09/19 21:00 Nasal Cannula 2.0 01/09/19 20:41 Nasal Cannula 2.0 28 01/09/19 20:41 97 Nasal Cannula 2.0 28 01/09/19 20:00 97.6 72 19 119/55 (76) 96 01/09/19 16:00 97.1 72 20 113/62 (79) 97 01/09/19 15:00 95.5 01/09/19 12:00 92.0 71 20 110/66 (81) 100 Intake and Output 01/09/19 01/10/19 18:59 06:59 Intake Total 920 ml Output Total 700 ml Balance 920 ml -700 ml Intake IV Total 920 ml Output Urine Total 700 ml Laboratory Tests 2/24/19 05:29: White Blood Count 5.9, Red Blood Count 2.86L, Hemoglobin 9.2L, Hematocrit 29.3L , Mean Corpuscular Volume 103H, Mean Corpuscular Hemoglobin 32.3H, Mean Corpuscular Hemoglobin Concent 31.4L, Red Cell Distribution Width 17.0H, Platelet Count 46#L, Mean Platelet Volume 14.7H, Neutrophils (%) (Auto) , Lymphocytes (%) (Auto) , Monocytes (%) (Auto) , Eosinophils (%) (Auto) , Basophils (%) (Auto) , Differential Total Cells Counted 100, Neutrophils % ( Manual) 82H, Lymphocytes % (Manual) 14L, Monocytes % (Manual) 4, Eosinophils % ( Manual) 0, Basophils % (Manual) 0, Band Neutrophils 0, Platelet Estimate DecreasedL, Platelet Morphology , Giant Platelets 1+, Anisocytosis 1+, Macrocytosis 1+, Sodium Level 144, Potassium Level 4.0, Chloride Level 115H, Carbon Dioxide Level 22, Anion Gap 7, Blood Urea Nitrogen 48H, Creatinine 2.6H, Estimat Glomerular Filtration Rate , Glucose Level 142H, Calcium Level 9.4, Random Vancomycin Level 18.6 Height (Feet): 5 Height (Inches): 2.00 Weight (Pounds): 187 General Appearance: lethargic Cardiovascular: normal rate, regular rhythm Respiratory/Chest: lungs clear, normal breath sounds Abdomen: non tender, soft Rome Diamond MD Jan 10, 2019 11:19
[2019-01-10 12:00] VITALS: BP 139/78
--- NOTE | 2019-01-10 12:32 | NUR ---
CASE MANAGEMENT: REVIEW SI: DEHYDRATION . SEPSIS T 99.7 HR 71 RR 25 BP 101/57 SAT 95% NC/2L H/H 9.2/29.3 BUN 48 CR 2.6 IS: MEROPENEM IV Q12HR PROTONIX IV Q12HR D5W IVF @100ML/HR TELEMETRY UNIT STATUS DCP: PATIENT IS FROM [facility]
[2019-01-10] MEDS ORDERED: Vancomycin 1gm/D5W 275ml IVPB SCH ×2 (14:00)
--- NOTE | 2019-01-10 15:31 | Cardiac Electrophysiology PN ---
Assessment/Plan Assessment/Plan 1. Atrial fibrillation. The rate is controlled off Coreg and is V pacing. Off anticoagulation in view of thrombocytopenia. 2. Status post defibrillator. Awaiting brand for interrogation 3. Congestive heart failure. EF 35% 4. Severe hypernatremia and renal failure. The patient is on IV fluids per Dr. Wells. 5. History of hypertension. Off Coreg for now 6. Possible pneumonia. 7. Altered mental status. 8. Thrombocytopenia. Better 21 to 46 9. MRSA PNA on Abx 10. DNR 11. Hx of CVA with aphasia DW RN Subjective Subjective Lethargic in atrial fib with V pacing Objective Last 24 Hour Vital Signs Date Time Temp Pulse Resp B/P (MAP) Pulse Ox O2 Delivery O2 Flow Rate FiO2 01/10/19 12:00 98.5 70 20 139/78 (98) 98 01/10/19 12:00 70 01/10/19 09:35 Nasal Cannula 2.0 28 01/10/19 09:35 98 Nasal Cannula 2.0 28 01/10/19 09:00 Nasal Cannula 2.0 01/10/19 08:00 70 01/10/19 08:00 99.2 72 20 120/66 (84) 99 01/10/19 04:00 81 01/10/19 04:00 99.7 71 25 101/57 (72) 96 01/10/19 00:00 99.5 72 19 123/54 (77) 95 01/10/19 00:00 71 01/09/19 21:00 Nasal Cannula 2.0 01/09/19 20:41 Nasal Cannula 2.0 28 01/09/19 20:41 97 Nasal Cannula 2.0 28 01/09/19 20:00 97.6 72 19 119/55 (76) 96 01/09/19 16:00 97.1 72 20 113/62 (79) 97 Intake and Output 01/09/19 01/10/19 18:59 06:59 Intake Total 920 ml Output Total 700 ml Balance 920 ml -700 ml Intake IV Total 920 ml Output Urine Total 700 ml Laboratory Tests Test 01/10/19 05:29 White Blood Count 5.9 K/UL (4.8-10.8) Red Blood Count 2.86 M/UL (4.20-5.40) L Hemoglobin 9.2 G/DL (12.0-16.0) L Hematocrit 29.3 % (37.0-47.0) L Mean Corpuscular Volume 103 FL (80-99) H Mean Corpuscular Hemoglobin 32.3 PG (27.0-31.0) H Mean Corpuscular Hemoglobin Concent 31.4 G/DL (32.0-36.0) L Red Cell Distribution Width 17.0 % (11.6-14.8) H Platelet Count 46 K/UL (150-450) #L Mean Platelet Volume 14.7 FL (6.5-10.1) H Neutrophils (%) (Auto) % (45.0-75.0) Lymphocytes (%) (Auto) % (20.0-45.0) Monocytes (%) (Auto) % (1.0-10.0) Eosinophils (%) (Auto) % (0.0-3.0) Basophils (%) (Auto) % (0.0-2.0) Differential Total Cells Counted 100 Neutrophils % (Manual) 82 % (45-75) H Lymphocytes % (Manual) 14 % (20-45) L Monocytes % (Manual) 4 % (1-10) Eosinophils % (Manual) 0 % (0-3) Basophils % (Manual) 0 % (0-2) Band Neutrophils 0 % (0-8) Platelet Estimate Decreased L Platelet Morphology Giant Platelets 1+ Anisocytosis 1+ Macrocytosis 1+ Sodium Level 144 MMOL/L (136-145) Potassium Level 4.0 MMOL/L (3.5-5.1) Chloride Level 115 MMOL/L (98-107) H Carbon Dioxide Level 22 MMOL/L (21-32) Anion Gap 7 mmol/L (5-15) Blood Urea Nitrogen 48 mg/dL (7-18) H Creatinine 2.6 MG/DL (0.55-1.30) H Estimat Glomerular Filtration Rate mL/min (>60) Glucose Level 142 MG/DL (74-106) H Calcium Level 9.4 MG/DL (8.5-10.1) Random Vancomycin Level 18.6 ug/mL Microbiology Date/Time Source Procedure Growth Status 01/08/19 07:00 Sputum Induced Gram Stain - Final Complete 01/08/19 07:00 Sputum Culture - Final Staphylococcus Aureus Complete Objective HEAD AND NECK: Mild JVD. LUNGS: Decreased breath sounds. CARDIOVASCULAR: Irregular S1 and S2 with no gallop. Defibrillator in left subclavian. ABDOMEN: Soft. EXTREMITIES: No pitting edema. Gabe Hi MD Jan 10, 2019 15:31
[2019-01-10 16:00] VITALS: BP 108/83
--- NOTE | 2019-01-10 18:12 | Nephrology Progress Note ---
Assessment/Plan Problem List: (1) Acute renal failure (2) Dehydration (3) Hypernatremia (4) Anemia Assessment acute Renal Failure Cr unchanged Sepsis / UTI / Pneumonia Acute metabolic Encephalopathy Hypernatremia AICD AT FIB CAD HTN presents with Low BP Anemia DNR DNI Plan Free water administration watch for chf pendleton hold mind altering meds protonix IV DC Motrin !!! Objective Objective Last 24 Hour Vital Signs Date Time Temp Pulse Resp B/P (MAP) Pulse Ox O2 Delivery O2 Flow Rate FiO2 01/10/19 16:00 97.6 70 18 108/83 (91) 96 01/10/19 16:00 70 01/10/19 12:00 98.5 70 20 139/78 (98) 98 01/10/19 12:00 70 01/10/19 09:35 Nasal Cannula 2.0 28 01/10/19 09:35 98 Nasal Cannula 2.0 28 01/10/19 09:00 Nasal Cannula 2.0 01/10/19 08:00 70 01/10/19 08:00 99.2 72 20 120/66 (84) 99 01/10/19 04:00 81 01/10/19 04:00 99.7 71 25 101/57 (72) 96 01/10/19 00:00 99.5 72 19 123/54 (77) 95 01/10/19 00:00 71 01/09/19 21:00 Nasal Cannula 2.0 01/09/19 20:41 Nasal Cannula 2.0 28 01/09/19 20:41 97 Nasal Cannula 2.0 28 01/09/19 20:00 97.6 72 19 119/55 (76) 96 Intake and Output 01/09/19 01/10/19 19:00 07:00 Intake Total 920 ml Output Total 700 ml Balance 920 ml -700 ml Intake IV Total 920 ml Output Urine Total 700 ml Laboratory Tests 01/10/19 05:29: White Blood Count 5.9, Red Blood Count 2.86L, Hemoglobin 9.2L, Hematocrit 29.3L , Mean Corpuscular Volume 103H, Mean Corpuscular Hemoglobin 32.3H, Mean Corpuscular Hemoglobin Concent 31.4L, Red Cell Distribution Width 17.0H, Platelet Count 46#L, Mean Platelet Volume 14.7H, Neutrophils (%) (Auto) , Lymphocytes (%) (Auto) , Monocytes (%) (Auto) , Eosinophils (%) (Auto) , Basophils (%) (Auto) , Differential Total Cells Counted 100, Neutrophils % ( Manual) 82H, Lymphocytes % (Manual) 14L, Monocytes % (Manual) 4, Eosinophils % ( Manual) 0, Basophils % (Manual) 0, Band Neutrophils 0, Platelet Estimate DecreasedL, Platelet Morphology , Giant Platelets 1+, Anisocytosis 1+, Macrocytosis 1+, Sodium Level 144, Potassium Level 4.0, Chloride Level 115H, Carbon Dioxide Level 22, Anion Gap 7, Blood Urea Nitrogen 48H, Creatinine 2.6H, Estimat Glomerular Filtration Rate , Glucose Level 142H, Calcium Level 9.4, Random Vancomycin Level 18.6 Height (Feet): 5 Height (Inches): 2.00 Weight (Pounds): 187 Objective no change Noe Wells MD Jan 10, 2019 18:12
--- NOTE | 2019-01-10 19:12 | NUR ---
HAND-OFF: Report given to RADAMES Cunningham. Plan of care endorsed.
--- NOTE | 2019-01-10 19:30 | NUR ---
NURSE NOTES: patient received. patient in no acute distress at this time. patient complains of no pain at this time. patient alert and oriented x0. bedbound. Bow[place] draining and intact. IV asymptomatic and patent. bed in lowest position and locked. bed alarm on. will continue to monitor.
[2019-01-10 20:00] VITALS: BP 126/99
--- NOTE | 2019-01-10 22:38 | General Progress Note ---
Assessment/Plan Assessment/Plan Assessment/Plan: # Severe Pancytopenia -- multiple etiologies could be related to underlying liver disease, medication-induced, infection versus viral syndrome --> peripheral smear has been ordered and does not show significant abnormalities, however concerning Ca++ elevated --> SPEP is pending along with UPEP --> r/o multiple myeloma --> Continue to monitor for improvement, trend cbc --> Hep panel and HIV have been ordered --> US abd ordered to r/o cirrhosis and hepatosplenomegaly --> consider other causes, infections that could contribute --> reverse isolation if ANC is <2000 --> Give neupogen if ANC <1000 --> Transfuse if hgb <7, with 1 unit prbc --> consider bone marrow biopsy if no other causes are found # Coagulation defect, unspecified (D68.9) aka coagulopathy, multifactorial usually related to poor PO intake versus medications, versus hepatitis v cirrhosis --> administer Vitamin K if patient is bleeding or FFP if the INR is >10 --> hold off on ffp unless active procedure/bleeding, first begin with vit K 10 --> mixing study as needed # Severe Sepsis woth likely hcap --> on abx as per ID team # Acute metabolic encephalopathy superimposed on severe dementia --> on IV antibiotics to vanco and meropenem --> check blood cultures, serial lactate and PCT # Hypernatremia --> d5w as per Nephrology consulted # Chronic sCHF s/p AICD --> off anticoagulation, reviewed recs of Dr. Hi # Atrial fibrillation The timing of this note does not necessarily reflect the time of the patient was seen. Greatly appreciate consultation! Subjective ROS Limited/Unobtainable: Yes Allergies: Coded Allergies: No Known Allergies (Unverified , 01/06/19) Subjective 01/08: pending lab workup, us of the abd pending, spep and dic panel pending 01/10: Seen by bedside, remains lethargic, no acute distress, plt remains low at 46 Objective Last 24 Hour Vital Signs Date Time Temp Pulse Resp B/P (MAP) Pulse Ox O2 Delivery O2 Flow Rate FiO2 01/10/19 21:00 Nasal Cannula 2.0 01/10/19 20:00 70 01/10/19 20:00 98.1 70 20 126/99 (108) 98 01/10/19 16:00 97.6 70 18 108/83 (91) 96 01/10/19 16:00 70 01/10/19 12:00 98.5 70 20 139/78 (98) 98 01/10/19 12:00 70 01/10/19 09:35 Nasal Cannula 2.0 28 01/10/19 09:35 98 Nasal Cannula 2.0 28 01/10/19 09:00 Nasal Cannula 2.0 01/10/19 08:00 70 01/10/19 08:00 99.2 72 20 120/66 (84) 99 01/10/19 04:00 81 01/10/19 04:00 99.7 71 25 101/57 (72) 96 01/10/19 00:00 99.5 72 19 123/54 (77) 95 01/10/19 00:00 71 Intake and Output 01/09/19 01/10/19 19:00 07:00 Intake Total 920 ml Output Total 700 ml Balance 920 ml -700 ml Intake IV Total 920 ml Output Urine Total 700 ml Laboratory Tests 01/10/19 05:29: White Blood Count 5.9, Red Blood Count 2.86L, Hemoglobin 9.2L, Hematocrit 29.3L , Mean Corpuscular Volume 103H, Mean Corpuscular Hemoglobin 32.3H, Mean Corpuscular Hemoglobin Concent 31.4L, Red Cell Distribution Width 17.0H, Platelet Count 46#L, Mean Platelet Volume 14.7H, Neutrophils (%) (Auto) , Lymphocytes (%) (Auto) , Monocytes (%) (Auto) , Eosinophils (%) (Auto) , Basophils (%) (Auto) , Differential Total Cells Counted 100, Neutrophils % ( Manual) 82H, Lymphocytes % (Manual) 14L, Monocytes % (Manual) 4, Eosinophils % ( Manual) 0, Basophils % (Manual) 0, Band Neutrophils 0, Platelet Estimate DecreasedL, Platelet Morphology , Giant Platelets 1+, Anisocytosis 1+, Macrocytosis 1+, Sodium Level 144, Potassium Level 4.0, Chloride Level 115H, Carbon Dioxide Level 22, Anion Gap 7, Blood Urea Nitrogen 48H, Creatinine 2.6H, Estimat Glomerular Filtration Rate , Glucose Level 142H, Calcium Level 9.4, Random Vancomycin Level 18.6 Height (Feet): 5 Height (Inches): 2.00 Weight (Pounds): 187 Objective PE General Appearance: lethargic ++2l NC Lines, tubes and drains: peripheral HEENT: normocephalic, atraumatic Neck: normal alignment Respiratory/Chest: lungs clear, normal breath sounds Cardiovascular/Chest: normal peripheral pulses, normal rate Abdomen: non tender, soft, no organomegaly Extremities: non-tender, normal inspection : Blane Peralta MD Jan 10, 2019 22:38
[2019-01-11] VITALS: BP 137/67
[2019-01-11 04:00] VITALS: BP 126/79
--- NOTE | 2019-01-11 07:23 | NUR ---
HAND-OFF: Report given to brad melchor.
--- NOTE | 2019-01-11 07:30 | NUR ---
NURSE NOTES: Received report from Elissa CRUM. Pt is asleep in bed, awakens to name/voice, pt is currently nonverbal. On 2L of oxygen via nasal cannula. No signs/symptoms of pain/discomfort present. IV access on left AC#20G infusing D5W at 100ml/hour, and left foot #24G, saline lock, patent/intact. Skin has sacral dressing, dry/intact, will change during my shift as ordered/needed. Also, right hand skin tear, covered with tegaderm, dry/intact. Pt is on overlay mattress. Bowens catheter in place, draining clear/yellow urine. Per night clerk report, pt is on close observation for body temp fluctuations, currently temp is 97.2F oral. Pt is NPO, placed on fall/aspiration precautions, head of bed at 30degress, bed in lowest position, three side rails up, brakes engaged, alarm on. Will continue to monitor pt and follow plan of care per MD orders and protocol. Addendum: 01/11/19 at 2018 by MARCO RODRIGUEZ RN Per Dr Mederos, contact MD if body temp drops below 95-96F oral.
[2019-01-11 08:00] VITALS: BP 143/76
[2019-01-11 08:07] LABS: HEMATOCRIT 31.6 % (37.0-47.0); HEMOGLOBIN 9.6 G/DL (12.0-16.0); MEAN CORPUSCULAR VOLUME 104 FL (80-99); PLATELET COUNT 38 K/UL (150-450); RED BLOOD COUNT 3.04 M/UL (4.20-5.40); RED CELL DISTRIBUTION WIDTH 16.8 % (11.6-14.8); WHITE BLOOD COUNT 5.5 K/UL (4.8-10.8)
[2019-01-11 08:25] LABS: ANION GAP 10 mmol/L (5-15); BLOOD UREA NITROGEN 40 mg/dL (7-18); CALCIUM 9.4 MG/DL (8.5-10.1); CARBON DIOXIDE 21 MMOL/L (21-32); CHLORIDE 113 MMOL/L (98-107); CREATININE 2.3 MG/DL (0.55-1.30); POTASSIUM 3.9 MMOL/L (3.5-5.1); SODIUM 144 MMOL/L (136-145)
--- NOTE | 2019-01-11 09:10 | NUR ---
CASE MANAGEMENT:REVIEW 01/11/19 SI: SEPSIS. PNA. UTI. ENCEPHALOPATHY 97.3 72 20 126/79 95% ON 2L/NC H/H-9.6/31.6 PLT-38 BUN+40 CR+2.3 IS: IV MEROPENEM Q12 IV PROTONIX Q12 IVF@100/HR : TELEMETRY STATUS DCP: FROM [facility] PLAN: BEDSIDE SWALLOW EVAL
--- NOTE | 2019-01-11 09:26 | NUR ---
ST NOTE: SWALLOW/SPEECH/COGNITIONS STATUS: RECEIVED REPEAT BEDSIDE SWALLOW EVAL ORDER DISCUSSED WITH JONATHAN CRUM, RE: PT'S CONDITIONS. PER JONATHAN, PT'S MENTAL STATUS IS SLIGHTLY BETTER. PT SEEN AT BEDSIDE IN AM. PT WITH NC(2L), DECREASED ALERTNESS, LETHARGIC, GIVEN CHEST RUB, PT OPENED HER EYES. ATTEMPTED TO GIVE NECTAR THICK(TSP) X 1, PT OPENED HER MOUTH, DECREASED BOLUS CONTROL, ANTERIOR SPILLAGE/LEAKAGE ON THE L-SIDE, PT DID NOT SWALLOW THE PO TRIAL. NO FURTHER PO TRIAL WAS GIVEN AT THIS TIME. DUE TO PT'S MENTAL STATUS IS POOR, PT IS NOT SAFE FOR ANY PO AT THIS TIME. CONTINUE NPO. CONSIDER TEMPORARILY NGT TO MEET NUTRITION AND HYDRATION NEEDS(DAY 5 NPO). D/W JONATHAN CRUM.
[2019-01-11] MEDS: Pantoprazole Inj IVP SCH ×2 (10:11→20:31)
[2019-01-11 12:00] VITALS: BP 123/65
--- NOTE | 2019-01-11 12:27 | Nephrology Progress Note ---
Assessment/Plan Problem List: (1) Acute renal failure (2) Dehydration (3) Hypernatremia (4) Anemia Assessment acute Renal Failure Cr unchanged Sepsis / UTI / Pneumonia Acute metabolic Encephalopathy Hypernatremia AICD AT FIB CAD HTN presents with Low BP Anemia DNR DNI Plan Free water administration watch for chf pendleton hold mind altering meds protonix IV DC Motrin !!! Subjective ROS Limited/Unobtainable: No Constitutional: Reports: malaise, weakness Objective Objective Last 24 Hour Vital Signs Date Time Temp Pulse Resp B/P (MAP) Pulse Ox O2 Delivery O2 Flow Rate FiO2 01/11/19 09:00 Nasal Cannula 2.0 01/11/19 08:00 70 01/11/19 08:00 96.6 71 20 143/76 (98) 96 01/11/19 04:31 98 Nasal Cannula 2.0 28 01/11/19 04:31 Nasal Cannula 2.0 28 01/11/19 04:00 97.3 74 20 126/79 (95) 95 01/11/19 04:00 72 01/11/19 00:00 97.6 73 20 137/67 (90) 99 01/11/19 00:00 70 01/10/19 21:00 Nasal Cannula 2.0 01/10/19 20:00 70 01/10/19 20:00 98.1 70 20 126/99 (108) 98 01/10/19 16:00 97.6 70 18 108/83 (91) 96 01/10/19 16:00 70 Intake and Output 01/10/19 01/11/19 18:59 06:59 Output Total 400 ml 900 ml Balance -400 ml -900 ml Output Urine Total 400 ml 900 ml Laboratory Tests 01/11/19 06:29: White Blood Count 5.5, Red Blood Count 3.04L, Hemoglobin 9.6L, Hematocrit 31.6L , Mean Corpuscular Volume 104H, Mean Corpuscular Hemoglobin 31.5H, Mean Corpuscular Hemoglobin Concent 30.3L, Red Cell Distribution Width 16.8H, Platelet Count 38L, Mean Platelet Volume 11.2H, Neutrophils (%) (Auto) , Lymphocytes (%) (Auto) , Monocytes (%) (Auto) , Eosinophils (%) (Auto) , Basophils (%) (Auto) , Differential Total Cells Counted 100, Neutrophils % ( Manual) 91H, Lymphocytes % (Manual) 5L, Monocytes % (Manual) 4, Eosinophils % ( Manual) 0, Basophils % (Manual) 0, Band Neutrophils 0, Platelet Estimate DecreasedL, Platelet Morphology Normal, Anisocytosis 1+, Macrocytosis 2+, Sodium Level 144, Potassium Level 3.9, Chloride Level 113H, Carbon Dioxide Level 21, Anion Gap 10, Blood Urea Nitrogen 40H, Creatinine 2.3H, Estimat Glomerular Filtration Rate , Glucose Level 125H, Calcium Level 9.4 Height (Feet): 5 Height (Inches): 2.00 Weight (Pounds): 187 General Appearance: no apparent distress Cardiovascular: normal rate Respiratory/Chest: decreased breath sounds Abdomen: distended Objective no change Noe Wells MD Jan 11, 2019 12:27
[2019-01-11] MEDS: Meropenem 500 MG in NS 55 ML IVPB SCH (12:28)
--- NOTE | 2019-01-11 13:06 | NUR ---
RD ASSESSMENT & RECOMMENDATIONS SEE CARE ACTIVITY FOR COMPLETE ASSESSMENT DAILY ESTIMATED NEEDS: Needs based on Wound, sepsis, obese 58.8kg adj 25-35 kcals/kg 6729-1680 total kcals 1.25-2 g protein/kg 74-118 g total protein 25-30 mL/kg 5314-2942 total fluid mLs NUTRITION DIAGNOSIS: 1) Increased kcal and protein needs r/t wound healing as evidenced by pt w/ sacral stage 2 per RN 2) Altered nutrition related lab values r/t clinical status and water deficits as evidenced by pt adm w/ Na 165-> now normalized, elev BUN and creat (40/2.3 trend down). 3) Swallowing difficulty R/T dysphagia w/ h/o CVA, lethargy as evidenced by [employer] W[employer]ER recommends, NPO, temporary nonoral feeding at this time. CURRENT DIET: NPO DAY 5 PO DIET RECOMMENDATIONS: IF SAFE FOR ORAL DIET -> LOW NA diet (texture per [employer]ER) ENTERAL NUTRITION RECOMMENDATIONS: Glucerna 1.2 @ 55ml/hr x 24 hrs to provide 1320ml, 1584kcal, 79g prot, 1063ml free water * IF PART OF POC, REC TO OBTAIN GI ACCESS * Initiate Glucerna 1.2 @ 15ml/hr x 6 hrs, advance 10ml q 4-6 hrs as tolerated to goal rate. * HOB over 30 degrees/ water flush per MD ADDITIONAL RECOMMENDATIONS: 1) RE-calibrate bed scale w/ added P200 mattress 2) Skin integrity: Add SWAPNA BID, rec wound eval 3) Monitor NPO Status- DAY 5 4) Monitor POC- PO vs TF? 5) Monitor lytes, replete as needed
--- NOTE | 2019-01-11 13:47 | Cardiac Electrophysiology PN ---
Assessment/Plan Assessment/Plan 1. Atrial fibrillation. The rate is controlled off Coreg and is V pacing. Off anticoagulation for thrombocytopenia. 2. Status post Medtronic biventricular ICD. No recent shocks 3. Congestive heart failure. EF 35%. Resume Coreg 3.125 bid 4. Severe hypernatremia and renal failure. On IV fluids per Dr. Wells. 5. History of hypertension. Off Coreg for now 6. MRSA PNA on Abx 7. Altered mental status. 8. Thrombocytopenia. Better 21 to 46 9. Hx of CVA with aphasia DW RN and son Subjective Subjective Lethargic in atrial fib with V pacing. Son at bedside. Objective Last 24 Hour Vital Signs Date Time Temp Pulse Resp B/P (MAP) Pulse Ox O2 Delivery O2 Flow Rate FiO2 01/11/19 09:00 Nasal Cannula 2.0 01/11/19 08:00 70 01/11/19 08:00 96.6 71 20 143/76 (98) 96 01/11/19 04:31 98 Nasal Cannula 2.0 28 01/11/19 04:31 Nasal Cannula 2.0 28 01/11/19 04:00 97.3 74 20 126/79 (95) 95 01/11/19 04:00 72 01/11/19 00:00 97.6 73 20 137/67 (90) 99 01/11/19 00:00 70 01/10/19 21:00 Nasal Cannula 2.0 01/10/19 20:00 70 01/10/19 20:00 98.1 70 20 126/99 (108) 98 01/10/19 16:00 97.6 70 18 108/83 (91) 96 01/10/19 16:00 70 Intake and Output 01/10/19 01/11/19 18:59 06:59 Output Total 400 ml 900 ml Balance -400 ml -900 ml Output Urine Total 400 ml 900 ml Laboratory Tests Test 01/11/19 06:29 White Blood Count 5.5 K/UL (4.8-10.8) Red Blood Count 3.04 M/UL (4.20-5.40) L Hemoglobin 9.6 G/DL (12.0-16.0) L Hematocrit 31.6 % (37.0-47.0) L Mean Corpuscular Volume 104 FL (80-99) H Mean Corpuscular Hemoglobin 31.5 PG (27.0-31.0) H Mean Corpuscular Hemoglobin Concent 30.3 G/DL (32.0-36.0) L Red Cell Distribution Width 16.8 % (11.6-14.8) H Platelet Count 38 K/UL (150-450) L Mean Platelet Volume 11.2 FL (6.5-10.1) H Neutrophils (%) (Auto) % (45.0-75.0) Lymphocytes (%) (Auto) % (20.0-45.0) Monocytes (%) (Auto) % (1.0-10.0) Eosinophils (%) (Auto) % (0.0-3.0) Basophils (%) (Auto) % (0.0-2.0) Differential Total Cells Counted 100 Neutrophils % (Manual) 91 % (45-75) H Lymphocytes % (Manual) 5 % (20-45) L Monocytes % (Manual) 4 % (1-10) Eosinophils % (Manual) 0 % (0-3) Basophils % (Manual) 0 % (0-2) Band Neutrophils 0 % (0-8) Platelet Estimate Decreased L Platelet Morphology Normal Anisocytosis 1+ Macrocytosis 2+ Sodium Level 144 MMOL/L (136-145) Potassium Level 3.9 MMOL/L (3.5-5.1) Chloride Level 113 MMOL/L (98-107) H Carbon Dioxide Level 21 MMOL/L (21-32) Anion Gap 10 mmol/L (5-15) Blood Urea Nitrogen 40 mg/dL (7-18) H Creatinine 2.3 MG/DL (0.55-1.30) H Estimat Glomerular Filtration Rate mL/min (>60) Glucose Level 125 MG/DL (74-106) H Calcium Level 9.4 MG/DL (8.5-10.1) Objective HEAD AND NECK: Mild JVD. LUNGS: Decreased breath sounds. CARDIOVASCULAR: Irregular S1 and S2 with no gallop. Defibrillator in left subclavian. ABDOMEN: Soft. EXTREMITIES: No pitting edema. Gabe Hi MD Jan 11, 2019 13:47
[2019-01-11 16:00] VITALS: BP 134/71
--- NOTE | 2019-01-11 16:23 | Infectious Diseases Prog Note ---
Assessment/Plan Assessment/Plan ASSESSMENT AND PLAN: 1. e.coli uti, staph aureus pna/MSSA, possible aspiration pna with jennifer-hilar infiltrate, sepsis, sirs, leukopenia, hypothermia, ams/lethargy - - change antibiotics to ancef and flagyl - day # 5 abx - f/u on labs and chest x-ray - change in abx ordered 2. The patient has severe hypernatremia. 3. Dehydration. 4. Acute kidney injury. 5. Elevated creatinine. 6. Intravenous fluids. 7. Hypothermia. 8. Pancytopenia. Workup per Hematology/Oncology. 9. Hypertension. 10. Coronary artery disease. 11. Congestive heart failure. 12. Automatic implanted cardioverter. 13. Subdural hematoma. 14. Severe dementia. 15. Aspiration risk. 16. No known drug allergies. 17. Social history is negative. 18. Family history is noncontributory. 19. MAR was noted. 20. Case was discussed with RN. 21. Encephalopathy. 22. Skin care protocol. 23. The patient is DNR/DNI. 24. aspiration precautions 25. mrsa colonization Subjective Constitutional: Reports: fatigue; Denies: fever HEENT: Reports: congestion - less Respiratory: Reports: shortness of breath - less Cardiovascular: Denies: chest pain Gastrointestinal/Abdominal: Denies: nausea, vomiting, diarrhea Genitourinary: Reports: other - + pendleton Neurologic: Reports: weakness, other - more responsive and alert Psychiatric: Reports: other - na Skin: Denies: rash Hematologic: Denies: bleeding Musculoskeletal: Denies: pain Allergies: Coded Allergies: No Known Allergies (Unverified , 01/06/19) Objective Vital Signs Last 24 Hour Vital Signs Date Time Temp Pulse Resp B/P (MAP) Pulse Ox O2 Delivery O2 Flow Rate FiO2 01/11/19 09:00 Nasal Cannula 2.0 01/11/19 08:00 70 01/11/19 08:00 96.6 71 20 143/76 (98) 96 01/11/19 04:31 98 Nasal Cannula 2.0 28 01/11/19 04:31 Nasal Cannula 2.0 28 01/11/19 04:00 97.3 74 20 126/79 (95) 95 01/11/19 04:00 72 01/11/19 00:00 97.6 73 20 137/67 (90) 99 01/11/19 00:00 70 01/10/19 21:00 Nasal Cannula 2.0 01/10/19 20:00 70 01/10/19 20:00 98.1 70 20 126/99 (108) 98 Height (Feet): 5 Height (Inches): 2.00 Weight (Pounds): 187 General Appearance: no acute distress HEENT: normocephalic, atraumatic, anicteric, mucous membranes moist Respiratory/Chest: crackles/rales, rhonchi - bilaterally Cardiovascular: normal rate, regular rhythm, no gallop/murmur, no JVD Abdomen: normal bowel sounds, soft, non tender, no organomegaly, non distended Genitourinary: other - + pendleton - urine clearer Extremities: no cyanosis Skin: no rash Neurologic/Psychiatric: councilor II-XII grossly normal, alert, responsive Lymphatic: no neck adenopathy Musculoskeletal: no effusion Objective 01/06 - chest x-ray - Comparison: none Findings: There is a left chest pacemaker, with an orphaned lead as well as epicardial leads. Surgical clips are seen in the left axilla. The heart is borderline enlarged. The lungs demonstrate possible hazy infiltrate in left perihilar region Impression: Possible left perihilar infiltrate Borderline cardiomegaly Other findings as noted 01/10 - chest x-ray - pending Microbiology Date/Time Source Procedure Growth Status 01/06/19 17:25 Blood Blood Culture - Preliminary NO GROWTH AFTER 4 DAYS Resulted 01/08/19 07:00 Sputum Induced Gram Stain - Final Complete 01/08/19 07:00 Sputum Culture - Final Staphylococcus Aureus Complete 01/07/19 11:30 Urine,Clean Catch Urine Culture - Final Escherichia Coli Complete 01/06/19 18:10 Rectum VRE Culture - Final NO VANCOMYCIN RESISTANT ENTEROCOCCUS ... Complete 01/06/19 18:10 Rectum - Final NO CARBAPENEM-RESISTANT ENTEROBACTERI... Complete Laboratory Tests Test 01/11/19 06:29 White Blood Count 5.5 K/UL (4.8-10.8) Red Blood Count 3.04 M/UL (4.20-5.40) L Hemoglobin 9.6 G/DL (12.0-16.0) L Hematocrit 31.6 % (37.0-47.0) L Mean Corpuscular Volume 104 FL (80-99) H Mean Corpuscular Hemoglobin 31.5 PG (27.0-31.0) H Mean Corpuscular Hemoglobin Concent 30.3 G/DL (32.0-36.0) L Red Cell Distribution Width 16.8 % (11.6-14.8) H Platelet Count 38 K/UL (150-450) L Mean Platelet Volume 11.2 FL (6.5-10.1) H Neutrophils (%) (Auto) % (45.0-75.0) Lymphocytes (%) (Auto) % (20.0-45.0) Monocytes (%) (Auto) % (1.0-10.0) Eosinophils (%) (Auto) % (0.0-3.0) Basophils (%) (Auto) % (0.0-2.0) Differential Total Cells Counted 100 Neutrophils % (Manual) 91 % (45-75) H Lymphocytes % (Manual) 5 % (20-45) L Monocytes % (Manual) 4 % (1-10) Eosinophils % (Manual) 0 % (0-3) Basophils % (Manual) 0 % (0-2) Band Neutrophils 0 % (0-8) Platelet Estimate Decreased L Platelet Morphology Normal Anisocytosis 1+ Macrocytosis 2+ Sodium Level 144 MMOL/L (136-145) Potassium Level 3.9 MMOL/L (3.5-5.1) Chloride Level 113 MMOL/L (98-107) H Carbon Dioxide Level 21 MMOL/L (21-32) Anion Gap 10 mmol/L (5-15) Blood Urea Nitrogen 40 mg/dL (7-18) H Creatinine 2.3 MG/DL (0.55-1.30) H Estimat Glomerular Filtration Rate mL/min (>60) Glucose Level 125 MG/DL (74-106) H Calcium Level 9.4 MG/DL (8.5-10.1) Current Medications Medications (Trade) Dose Ordered Sig/Nuria Route PRN Reason Start Time Stop Time Status Last Admin Dose Admin Dextrose 1,000 ml @ 100 mls/hr Q10H IV 01/08/19 15:00 02/05/19 08:04 01/11/19 12:28 Dextrose (Dextrose 50%) 25 ml Q30M PRN IV Hypoglycemia 01/08/19 15:00 02/05/19 18:59 Dextrose (Dextrose 50%) 50 ml Q30M PRN IV Hypoglycemia 01/08/19 15:00 02/05/19 18:59 Lorazepam (Ativan 2mg/ml 1ml) 1 mg Q4H PRN IV For Anxiety 01/08/19 15:00 01/14/19 14:59 01/08/19 16:57 Meropenem 500 mg/ Sodium Chloride 55 ml @ 110 mls/hr Q12H IVPB 01/09/19 00:00 01/12/19 23:59 01/11/19 12:28 Pantoprazole (Protonix) 40 mg EVERY 12 HOURS IVP 01/08/19 21:00 02/06/19 20:59 01/11/19 10:11 Vancomycin HCl (Vanco rx to dose) 1 ea DAILY PRN MISC Per rx protocol 01/08/19 15:00 02/07/19 14:59 Ninfa Vences MD Jan 11, 2019 16:23
--- NOTE | 2019-01-11 16:34 | Cardiology Report ---
APPROVED REPORT EXAM: Two-dimensional and M-mode echocardiogram with Doppler and color Doppler. INDICATION Congestive Heart Failure M-Mode DIMENSIONS IVSd1.1 (0.7-1.1cm)Left Atrium (MM)4.7 (1.6-4.0cm) LVDd4.9 (3.5-5.6cm)Aortic Root2.9 (2.0-3.7cm) PWd1.0 (0.7-1.1cm)Aortic Cusp Exc.1.9 (1.5-2.0cm) LVDs3.6 (2.5-4.0cm) PWs1.3 cm Normal left ventricular chamber size. Global left ventricular hypokinesis. Left ventricular ejection fraction estimated to be 30-35 %. Mild left ventricular hypertrophy by 2D. No evidence of pericardial effusion. Moderate bi-atrial enlargement. Right ventricular chamber size is within normal limits. Focal aortic valve sclerosis with adequate cusp excursion. Thickened mitral valve leaflets with normal excursion. Echogenic material noted on posterior MV leaflet that appears to be prolapsed into Left Atrium C/W moderate mitral regurgitation. Mitral annulus and aortic root calcification. Pulmonic valve not well visualized. Normal tricuspid valve structure. IVC measured at 2.3 cm with slight physiologic collapse suggestive of increased RA pressure. Pacemaker wire present in the right side chambers. A color flow and spectral Doppler study was performed and revealed: No aortic inssuficiency. Moderate mitral regurgitation. LV diastolic function not determined due to AF. Moderate tricuspid regurgitation. Tricuspid systolic velocities suggests peak right ventricular systolic pressure of 53 mmHg, consistent with moderate pulmonary hypertension. Pulmonic regurgitation present.
--- NOTE | 2019-01-11 18:09 | General Progress Note ---
Assessment/Plan Assessment/Plan #Severe Sepsis #MSSA pneumonia, possibly dye to aspiration #E. coli UTI #Acute metabolic encephalopathy superimposed on severe dementia -antibiotics adjusted by ID -continue to hold anti-hypertensives, will look to resume if pressures creeping up -aspiration precautions -may require PEG #Hypernatremia -resolved -continue D5W -Nephrology following #Chronic sCHF s/p AICD #Atrial fibrillation #HTN #CAD -continue to hold BP meds for noww -Cardiology eval appreciated VTE PPx Heparin SC DNR/DNI I spent 45 minutes on this patient's case, and 25 minutes was dedicated to counseling and/or care coordination. Subjective Date patient seen: Jan 11, 2019 Time patient seen: 08:37 ROS Limited/Unobtainable: Yes Allergies: Coded Allergies: No Known Allergies (Unverified , 01/06/19) Subjective Medicine follow up for severe sepsis, suspected HCAP, hypernatremia. Remains lethargic, failed swallow eval today Objective Last 24 Hour Vital Signs Date Time Temp Pulse Resp B/P (MAP) Pulse Ox O2 Delivery O2 Flow Rate FiO2 01/11/19 09:00 Nasal Cannula 2.0 01/11/19 08:00 70 01/11/19 08:00 96.6 71 20 143/76 (98) 96 01/11/19 04:31 98 Nasal Cannula 2.0 28 01/11/19 04:31 Nasal Cannula 2.0 28 01/11/19 04:00 97.3 74 20 126/79 (95) 95 01/11/19 04:00 72 01/11/19 00:00 97.6 73 20 137/67 (90) 99 01/11/19 00:00 70 01/10/19 21:00 Nasal Cannula 2.0 01/10/19 20:00 70 01/10/19 20:00 98.1 70 20 126/99 (108) 98 Intake and Output 01/10/19 01/11/19 18:59 06:59 Output Total 400 ml 900 ml Balance -400 ml -900 ml Output Urine Total 400 ml 900 ml Laboratory Tests 01/11/19 06:29: White Blood Count 5.5, Red Blood Count 3.04L, Hemoglobin 9.6L, Hematocrit 31.6L , Mean Corpuscular Volume 104H, Mean Corpuscular Hemoglobin 31.5H, Mean Corpuscular Hemoglobin Concent 30.3L, Red Cell Distribution Width 16.8H, Platelet Count 38L, Mean Platelet Volume 11.2H, Neutrophils (%) (Auto) , Lymphocytes (%) (Auto) , Monocytes (%) (Auto) , Eosinophils (%) (Auto) , Basophils (%) (Auto) , Differential Total Cells Counted 100, Neutrophils % ( Manual) 91H, Lymphocytes % (Manual) 5L, Monocytes % (Manual) 4, Eosinophils % ( Manual) 0, Basophils % (Manual) 0, Band Neutrophils 0, Platelet Estimate DecreasedL, Platelet Morphology Normal, Anisocytosis 1+, Macrocytosis 2+, Sodium Level 144, Potassium Level 3.9, Chloride Level 113H, Carbon Dioxide Level 21, Anion Gap 10, Blood Urea Nitrogen 40H, Creatinine 2.3H, Estimat Glomerular Filtration Rate , Glucose Level 125H, Calcium Level 9.4 Height (Feet): 5 Height (Inches): 2.00 Weight (Pounds): 187 General Appearance: no apparent distress, lethargic Cardiovascular: normal rate, regular rhythm Respiratory/Chest: lungs clear, normal breath sounds Abdomen: non tender, soft Rome Diamond MD Jan 11, 2019 18:09
[2019-01-11 20:00] VITALS: BP 130/66
--- NOTE | 2019-01-11 20:18 | NUR ---
HAND-OFF: Report given to Vernon. Pt is resting in bed in stable condition. Endorsed plan of care.
--- NOTE | 2019-01-11 20:20 | NUR ---
NURSE NOTES: Got report from Thao CRUM. Pt in stable condition. Denies any pain. No s/s of distress noted. Pt resting in bed comfortably. Bed in low and locked position, call light within reach, bedside table within reach. Continue to monitor.
[2019-01-11] MEDS: ceFAZolin sod 1 GM in D5W 55 ML IVPB SCH (20:32)
[2019-01-11] MEDS ORDERED: metroNIDAZOLE 500mg tab ORAL SCH (22:00)
--- NOTE | 2019-01-11 22:21 | General Progress Note ---
Assessment/Plan Assessment/Plan Assessment/Plan: # Severe Pancytopenia -- multiple etiologies could be related to underlying liver disease, medication-induced, infection versus viral syndrome, ID with abx now --> peripheral smear has been ordered and does not show significant abnormalities, however concerning Ca++ elevated --> SPEP is negative for bands, upep pending --> Continue to monitor for improvement, trend cbc --> Hep panel and HIV are both negative --> US abd ordered to r/o cirrhosis and hepatosplenomegaly does not show it --> consider other causes, infections that could contribute --> reverse isolation if ANC is <2000 --> Give neupogen if ANC <1000 --> Transfuse if hgb <7, with 1 unit prbc --> consider bone marrow biopsy if no other causes are found, will dw pathologist # Coagulation defect, unspecified (D68.9) aka coagulopathy, multifactorial usually related to poor PO intake versus medications, versus hepatitis v cirrhosis --> administer Vitamin K if patient is bleeding or FFP if the INR is >10 --> hold off on ffp unless active procedure/bleeding, first begin with vit K 10 --> mixing study as needed # Severe Sepsis woth likely hcap --> on abx as per ID team # Acute metabolic encephalopathy superimposed on severe dementia --> on IV antibiotics to vanco and meropenem --> check blood cultures, serial lactate and PCT # Hypernatremia --> d5w as per Nephrology consulted # Chronic sCHF s/p AICD --> off anticoagulation, reviewed recs of Dr. Hi # Atrial fibrillation The timing of this note does not necessarily reflect the time of the patient was seen. Greatly appreciate consultation! Subjective Constitutional: Denies: no symptoms, chills, diaphoresis, fever, malaise, weakness, other HEENT: Denies: no symptoms, eye pain, blurred vision, tearing, double vision, ear pain, ear discharge, nose pain, nose congestion, throat pain, throat swelling, mouth pain, mouth swelling, other Cardiovascular: Denies: no symptoms, chest pain, edema, irregular heart rate, lightheadedness, palpitations, syncope, other Respiratory: Denies: no symptoms, cough, orthopnea, shortness of breath, SOB with excertion, SOB at rest, sputum, stridor, wheezing, other Gastrointestinal/Abdominal: Denies: no symptoms, abdomen distended, abdominal pain, black stools, tarry stools, blood in stool, constipated, diarrhea, difficulty swallowing, nausea, poor appetite, poor fluid intake, rectal bleeding , vomiting, other Neurologic/Psychiatric: Denies: no symptoms, anxiety, depressed, emotional problems, headache, numbness, paresthesia, pre-existing deficit, seizure, tingling, tremors, weakness, other Allergies: Coded Allergies: No Known Allergies (Unverified , 01/06/19) Subjective 01/08: pending lab workup, us of the abd pending, spep and dic panel pending 01/10: Seen by bedside, remains lethargic, no acute distress, plt remains low at 46 01/11: resting in bed, no acute distress, plt trending down 38 Objective Last 24 Hour Vital Signs Date Time Temp Pulse Resp B/P (MAP) Pulse Ox O2 Delivery O2 Flow Rate FiO2 01/11/19 16:00 70 01/11/19 16:00 96.8 70 18 134/71 (92) 100 01/11/19 12:00 69 01/11/19 12:00 97.9 84 20 123/65 (84) 100 01/11/19 09:00 Nasal Cannula 2.0 01/11/19 08:00 70 01/11/19 08:00 96.6 71 20 143/76 (98) 96 01/11/19 04:31 98 Nasal Cannula 2.0 28 01/11/19 04:31 Nasal Cannula 2.0 28 01/11/19 04:00 97.3 74 20 126/79 (95) 95 01/11/19 04:00 72 01/11/19 00:00 97.6 73 20 137/67 (90) 99 01/11/19 00:00 70 Intake and Output 01/10/19 01/11/19 19:00 07:00 Output Total 400 ml 900 ml Balance -400 ml -900 ml Output Urine Total 400 ml 900 ml Laboratory Tests 01/11/19 06:29: White Blood Count 5.5, Red Blood Count 3.04L, Hemoglobin 9.6L, Hematocrit 31.6L , Mean Corpuscular Volume 104H, Mean Corpuscular Hemoglobin 31.5H, Mean Corpuscular Hemoglobin Concent 30.3L, Red Cell Distribution Width 16.8H, Platelet Count 38L, Mean Platelet Volume 11.2H, Neutrophils (%) (Auto) , Lymphocytes (%) (Auto) , Monocytes (%) (Auto) , Eosinophils (%) (Auto) , Basophils (%) (Auto) , Differential Total Cells Counted 100, Neutrophils % ( Manual) 91H, Lymphocytes % (Manual) 5L, Monocytes % (Manual) 4, Eosinophils % ( Manual) 0, Basophils % (Manual) 0, Band Neutrophils 0, Platelet Estimate DecreasedL, Platelet Morphology Normal, Anisocytosis 1+, Macrocytosis 2+, Sodium Level 144, Potassium Level 3.9, Chloride Level 113H, Carbon Dioxide Level 21, Anion Gap 10, Blood Urea Nitrogen 40H, Creatinine 2.3H, Estimat Glomerular Filtration Rate , Glucose Level 125H, Calcium Level 9.4 Height (Feet): 5 Height (Inches): 2.00 Weight (Pounds): 187 Objective PE General Appearance: lethargic ++2l NC Lines, tubes and drains: peripheral HEENT: normocephalic, atraumatic Neck: normal alignment Respiratory/Chest: lungs clear, normal breath sounds Cardiovascular/Chest: normal peripheral pulses, normal rate Abdomen: non tender, soft, no organomegaly Extremities: non-tender, normal inspection : Blane Peralta MD Jan 11, 2019 22:21
[2019-01-12] VITALS: BP 135/69
[2019-01-12 04:20] VITALS: BP 133/81
--- NOTE | 2019-01-12 07:20 | NUR ---
HAND-OFF: Report given to Prabhakar Gonzalez. Endorsed plan of care.
[2019-01-12 08:10] VITALS: BP 139/74
--- NOTE | 2019-01-12 08:32 | NUR ---
NURSE NOTES: Pt in bed with HoB in fowlers, pt non verbal, no orientation, pendleton in place since admission, call light at bedside, bed alarm on, pt NPO due to failed ST evaluation, possible PEG placement but family has refused per Night nurse endorsement, Pt on 2L NC continuous, no s/s of distress or sob noted.
[2019-01-12 09:23] LABS: HEMATOCRIT 30.2 % (37.0-47.0); HEMOGLOBIN 9.3 G/DL (12.0-16.0); MEAN CORPUSCULAR VOLUME 102 FL (80-99); PLATELET COUNT 46 K/UL (150-450); RED BLOOD COUNT 2.95 M/UL (4.20-5.40); RED CELL DISTRIBUTION WIDTH 16.3 % (11.6-14.8); WHITE BLOOD COUNT 6.4 K/UL (4.8-10.8)
--- NOTE | 2019-01-12 09:29 | NUR ---
CASE MANAGEMENT:REVIEW 01/12/19 SI: SEPSIS. MSSA PNA. UTI. ENCEPHALOPATHY 96.9 68 20 139/74 100% ON 2L/NC H/H-9.3/30.2 PLT-46 IS: IV FLAGYL Q8HRS IV ANCEF Q12 IV PROTONIX Q12 : TELEMETRY STATUS DCP: FROM [facility] PLAN: REFER TO [facility] IF NOT READY TO RETURN TO SNF
[2019-01-12 09:32] LABS: ANION GAP 9 mmol/L (5-15); BLOOD UREA NITROGEN 31 mg/dL (7-18); CALCIUM 9.2 MG/DL (8.5-10.1); CARBON DIOXIDE 21 MMOL/L (21-32); CHLORIDE 110 MMOL/L (98-107); CREATININE 1.8 MG/DL (0.55-1.30); POTASSIUM 3.9 MMOL/L (3.5-5.1); SODIUM 140 MMOL/L (136-145)
--- NOTE | 2019-01-12 09:35 | NUR ---
DISCHARGE PLANNING PATIENT IS FROM [facility] PER DR PAREKH PATIENT IS NOT MEDICALLY READY FOR DISCHARGE PATIENT HAS BEEN REFERRED TO [facility]
--- NOTE | 2019-01-12 10:01 | NUR ---
RADIOLOGY DEPT CHEST X-RAY DONE.-.P.DYE
[2019-01-12] MEDS: ceFAZolin sod 1 GM in D5W 55 ML IVPB SCH ×2 (10:04→21:00)
[2019-01-12] MEDS: Pantoprazole Inj IVP SCH ×2 (10:04→21:00)
--- NOTE | 2019-01-12 11:04 | NUR ---
*-* INSURANCE *-* CLINICALS AND REVIEWS HAVE BEEN FAXED TO: [facility] F:[phone]
--- NOTE | 2019-01-12 11:37 | General Progress Note ---
Assessment/Plan Assessment/Plan #Severe Sepsis #MSSA pneumonia, possibly dye to aspiration #E. coli UTI #Acute metabolic encephalopathy superimposed on severe dementia -antibiotics adjusted by ID -continue to hold anti-hypertensives, -aspiration precautions -seen by FORESTRY CONTRACTOR, started on dysphagia diet #Hypernatremia -resolved -continue D5W -Nephrology following #Chronic sCHF s/p AICD #Atrial fibrillation #HTN #CAD -continue to hold BP meds for now -Cardiology eval appreciated VTE PPx Heparin SC DNR/DNI Subjective Date patient seen: Jan 12, 2019 Time patient seen: 11:15 ROS Limited/Unobtainable: Yes Allergies: Coded Allergies: No Known Allergies (Unverified , 01/06/19) Subjective Medicine follow up for severe sepsis, suspected HCAP, hypernatremia. Mentation improved today Seen by FORESTRY CONTRACTOR and started on diet Objective Last 24 Hour Vital Signs Date Time Temp Pulse Resp B/P (MAP) Pulse Ox O2 Delivery O2 Flow Rate FiO2 01/12/19 10:58 71 01/12/19 08:23 Nasal Cannula 2.0 01/12/19 08:10 96.9 68 20 139/74 (95) 100 01/12/19 04:21 70 01/12/19 04:20 97.7 67 18 133/81 (98) 98 01/12/19 04:06 99 Nasal Cannula 2.0 28 01/12/19 04:06 Nasal Cannula 2.0 28 01/12/19 00:27 70 01/12/19 00:00 98.3 66 18 135/69 (91) 98 01/11/19 21:00 Nasal Cannula 2.0 01/11/19 20:00 97.4 71 19 130/66 (87) 97 01/11/19 20:00 72 01/11/19 16:00 70 01/11/19 16:00 96.8 70 18 134/71 (92) 100 01/11/19 12:00 69 01/11/19 12:00 97.9 84 20 123/65 (84) 100 Intake and Output 01/11/19 01/12/19 19:00 07:00 Output Total 350 ml 400 ml Balance -350 ml -400 ml Output Urine Total 350 ml 400 ml Laboratory Tests 01/12/19 08:50: White Blood Count 6.4, Red Blood Count 2.95L, Hemoglobin 9.3L, Hematocrit 30.2L , Mean Corpuscular Volume 102H, Mean Corpuscular Hemoglobin 31.4H, Mean Corpuscular Hemoglobin Concent 30.7L, Red Cell Distribution Width 16.3H, Platelet Count 46L, Mean Platelet Volume 15.0H, Neutrophils (%) (Auto) , Lymphocytes (%) (Auto) , Monocytes (%) (Auto) , Eosinophils (%) (Auto) , Basophils (%) (Auto) , Differential Total Cells Counted 100, Neutrophils % ( Manual) 85H, Lymphocytes % (Manual) 9L, Monocytes % (Manual) 3, Eosinophils % ( Manual) 0, Basophils % (Manual) 0, Band Neutrophils 3, Platelet Estimate DecreasedL, Platelet Morphology Normal, Hypochromasia 1+, Anisocytosis 1+, Macrocytosis 1+, Sodium Level 140, Potassium Level 3.9, Chloride Level 110H, Carbon Dioxide Level 21, Anion Gap 9, Blood Urea Nitrogen 31H, Creatinine 1.8H, Estimat Glomerular Filtration Rate , Glucose Level 134H, Calcium Level 9.2 Height (Feet): 5 Height (Inches): 2.00 Weight (Pounds): 187 General Appearance: lethargic Neck: normal alignment Cardiovascular: normal rate, regular rhythm Respiratory/Chest: lungs clear, normal breath sounds Abdomen: non tender, soft Rome Diamond MD Jan 12, 2019 11:37
--- NOTE | 2019-01-12 12:07 | NUR ---
ST NOTE: SWALLOW/SPEECH/COGNITION STATUS FOLLOWED UP PT'S CONDITIONS. PER , DR. PAREKH, PT IS MORE AWAKE. PT SEEN AT BEDSIDE IN LATE AM. ALERT, COOPERATIVE, BUT CONFUSED. PT WITH NC(2L). GIVEN PO TRIALS: NECTAR THICK(TSP) ONLY MILD INCREASED ORAL TRANSIT TIME AND OROPHARYNGEAL TRANSIT TIME, FAIR LARYNGEAL ELEVATION, NO OVERT S/S OF ASPIRATION. HAS HIGH (SILENT) RISK FOR ASPIRATION DUE TO PT HAS POSS ASP PNA. RECOMMENDATIONS: 1. CONSERVATIVELY, VIDEOSWALLOW STUDY PRIOR THE PO DIET. 2. PO SHOULD BE GIVEN FOR QUALITY OF LIFE(PER FAMILY WISHES, NO TUBE FEEDING), SLOWLY INITIATE LOW NA LIQUIFIED PUREED, LIKE NECTAR THICK SOUP CONSISTENCY WITH NECTAR THICK LIQUIDS 3. STRICT ASPIRATION/REFLUX PRECAUTIONS WITH 1TO1 FEEDING. 4. VIDEOSWALLOW STUDY D/W RN, CHRISTINE DUNN(CHRISTY), RD, MENDEL, AND , DR. HEBERT. APPROVED THE DIET. POSTED ASPIRATION PRECAUTIONS SIGN.
[2019-01-12 12:08] VITALS: BP 128/72
--- NOTE | 2019-01-12 12:40 | Diagnostic Imaging Report ---
Indication: Shortness of breath Technique: One view of the chest Comparison: 01/10/2019 Findings: The heart is enlarged. There is patchy parenchymal opacity in the left suprahilar region which is not evident previously. There is equivocal minimal interstitial congestive change. The lungs and pleural spaces are otherwise grossly clear, although a pacemaker obscures much of the left lung. Surgical clips are seen in the left chest wall Impression: New or increased patchy left suprahilar opacity Equivocal minimal interstitial congestion
--- NOTE | 2019-01-12 15:05 | Nephrology Progress Note ---
Assessment/Plan Problem List: (1) Acute renal failure (2) Dehydration (3) Hypernatremia (4) Anemia Assessment acute Renal Failure Cr lowering Sepsis / UTI / Pneumonia Acute metabolic Encephalopathy Hypernatremia AICD AT FIB CAD HTN presents with Low BP Anemia DNR DNI Plan Free water administration watch for chf pendleton hold mind altering meds protonix IV DC Motrin !!! Subjective ROS Limited/Unobtainable: No Constitutional: Reports: malaise, weakness Objective Objective Last 24 Hour Vital Signs Date Time Temp Pulse Resp B/P (MAP) Pulse Ox O2 Delivery O2 Flow Rate FiO2 01/12/19 12:08 97.1 71 20 128/72 (90) 98 01/12/19 11:57 70 01/12/19 10:58 71 01/12/19 08:23 Nasal Cannula 2.0 01/12/19 08:10 96.9 68 20 139/74 (95) 100 01/12/19 07:24 71 01/12/19 04:21 70 01/12/19 04:20 97.7 67 18 133/81 (98) 98 01/12/19 04:06 99 Nasal Cannula 2.0 28 01/12/19 04:06 Nasal Cannula 2.0 28 01/12/19 00:27 70 01/12/19 00:00 98.3 66 18 135/69 (91) 98 01/11/19 21:00 Nasal Cannula 2.0 01/11/19 20:00 97.4 71 19 130/66 (87) 97 01/11/19 20:00 72 01/11/19 16:00 70 01/11/19 16:00 96.8 70 18 134/71 (92) 100 Intake and Output 01/11/19 01/12/19 19:00 07:00 Output Total 350 ml 400 ml Balance -350 ml -400 ml Output Urine Total 350 ml 400 ml Laboratory Tests 01/12/19 08:50: White Blood Count 6.4, Red Blood Count 2.95L, Hemoglobin 9.3L, Hematocrit 30.2L , Mean Corpuscular Volume 102H, Mean Corpuscular Hemoglobin 31.4H, Mean Corpuscular Hemoglobin Concent 30.7L, Red Cell Distribution Width 16.3H, Platelet Count 46L, Mean Platelet Volume 15.0H, Neutrophils (%) (Auto) , Lymphocytes (%) (Auto) , Monocytes (%) (Auto) , Eosinophils (%) (Auto) , Basophils (%) (Auto) , Differential Total Cells Counted 100, Neutrophils % ( Manual) 85H, Lymphocytes % (Manual) 9L, Monocytes % (Manual) 3, Eosinophils % ( Manual) 0, Basophils % (Manual) 0, Band Neutrophils 3, Platelet Estimate DecreasedL, Platelet Morphology Normal, Hypochromasia 1+, Anisocytosis 1+, Macrocytosis 1+, Sodium Level 140, Potassium Level 3.9, Chloride Level 110H, Carbon Dioxide Level 21, Anion Gap 9, Blood Urea Nitrogen 31H, Creatinine 1.8H, Estimat Glomerular Filtration Rate , Glucose Level 134H, Calcium Level 9.2 Height (Feet): 5 Height (Inches): 2.00 Weight (Pounds): 187 General Appearance: no apparent distress Cardiovascular: normal rate Respiratory/Chest: decreased breath sounds Abdomen: soft Objective no change Noe Wells MD Jan 12, 2019 15:05
[2019-01-12 15:58] VITALS: BP 131/71
--- NOTE | 2019-01-12 16:20 | Cardiac Electrophysiology PN ---
Assessment/Plan Assessment/Plan 1. Atrial fibrillation. The rate is controlled off AVN blockers and is V pacing. Off anticoagulation for thrombocytopenia. 2. Status post Medtronic biventricular ICD. No recent shocks 3. Congestive heart failure. EF 35%. 4. Severe hypernatremia and renal failure. On IV fluids per Dr. Wells. 5. History of hypertension. Off Coreg for now 6. MRSA PNA on Abx 7. Altered mental status. 8. Thrombocytopenia. 9. Hx of CVA with aphasia DW RN Subjective Subjective Lethargic in atrial fib with occasional V pacing. Son at bedside. Objective Last 24 Hour Vital Signs Date Time Temp Pulse Resp B/P (MAP) Pulse Ox O2 Delivery O2 Flow Rate FiO2 01/12/19 15:58 97.3 70 20 131/71 (91) 100 01/12/19 12:08 97.1 71 20 128/72 (90) 98 01/12/19 11:57 70 01/12/19 10:58 71 01/12/19 08:23 Nasal Cannula 2.0 01/12/19 08:10 96.9 68 20 139/74 (95) 100 01/12/19 07:24 71 01/12/19 04:21 70 01/12/19 04:20 97.7 67 18 133/81 (98) 98 01/12/19 04:06 99 Nasal Cannula 2.0 28 01/12/19 04:06 Nasal Cannula 2.0 28 01/12/19 00:27 70 01/12/19 00:00 98.3 66 18 135/69 (91) 98 01/11/19 21:00 Nasal Cannula 2.0 01/11/19 20:00 97.4 71 19 130/66 (87) 97 01/11/19 20:00 72 Intake and Output 01/11/19 01/12/19 18:59 06:59 Output Total 350 ml 400 ml Balance -350 ml -400 ml Output Urine Total 350 ml 400 ml Laboratory Tests Test 01/12/19 08:50 White Blood Count 6.4 K/UL (4.8-10.8) Red Blood Count 2.95 M/UL (4.20-5.40) L Hemoglobin 9.3 G/DL (12.0-16.0) L Hematocrit 30.2 % (37.0-47.0) L Mean Corpuscular Volume 102 FL (80-99) H Mean Corpuscular Hemoglobin 31.4 PG (27.0-31.0) H Mean Corpuscular Hemoglobin Concent 30.7 G/DL (32.0-36.0) L Red Cell Distribution Width 16.3 % (11.6-14.8) H Platelet Count 46 K/UL (150-450) L Mean Platelet Volume 15.0 FL (6.5-10.1) H Neutrophils (%) (Auto) % (45.0-75.0) Lymphocytes (%) (Auto) % (20.0-45.0) Monocytes (%) (Auto) % (1.0-10.0) Eosinophils (%) (Auto) % (0.0-3.0) Basophils (%) (Auto) % (0.0-2.0) Differential Total Cells Counted 100 Neutrophils % (Manual) 85 % (45-75) H Lymphocytes % (Manual) 9 % (20-45) L Monocytes % (Manual) 3 % (1-10) Eosinophils % (Manual) 0 % (0-3) Basophils % (Manual) 0 % (0-2) Band Neutrophils 3 % (0-8) Platelet Estimate Decreased L Platelet Morphology Normal Hypochromasia 1+ Anisocytosis 1+ Macrocytosis 1+ Sodium Level 140 MMOL/L (136-145) Potassium Level 3.9 MMOL/L (3.5-5.1) Chloride Level 110 MMOL/L (98-107) H Carbon Dioxide Level 21 MMOL/L (21-32) Anion Gap 9 mmol/L (5-15) Blood Urea Nitrogen 31 mg/dL (7-18) H Creatinine 1.8 MG/DL (0.55-1.30) H Estimat Glomerular Filtration Rate mL/min (>60) Glucose Level 134 MG/DL (74-106) H Calcium Level 9.2 MG/DL (8.5-10.1) Objective HEAD AND NECK: Mild JVD. LUNGS: Decreased breath sounds. CARDIOVASCULAR: Irregular S1 and S2 with no gallop. Defibrillator in left subclavian. ABDOMEN: Soft. EXTREMITIES: No pitting edema. Gabe Hi MD Jan 12, 2019 16:20
--- NOTE | 2019-01-12 16:38 | Cardiac Electrophysiology PN ---
Assessment/Plan Assessment/Plan 1. Atrial fibrillation. The rate is controlled off Coreg Off anticoagulation for thrombocytopenia. 2. Status post Medtronic biventricular ICD. No recent shocks 3. Congestive heart failure. EF 35%. 4. Severe hypernatremia and renal failure. On IV fluids per Dr. Wells. 5. History of hypertension. Off Coreg for now 6. MRSA PNA on Abx 7. Altered mental status. 8. Thrombocytopenia. 9. Hx of CVA with aphasia DW RN Subjective Subjective More alert in atrial fib with V pacing. Family at bedside. Objective Last 24 Hour Vital Signs Date Time Temp Pulse Resp B/P (MAP) Pulse Ox O2 Delivery O2 Flow Rate FiO2 01/12/19 15:58 97.3 70 20 131/71 (91) 100 01/12/19 12:08 97.1 71 20 128/72 (90) 98 01/12/19 11:57 70 01/12/19 10:58 71 01/12/19 08:23 Nasal Cannula 2.0 01/12/19 08:10 96.9 68 20 139/74 (95) 100 01/12/19 07:24 71 01/12/19 04:21 70 01/12/19 04:20 97.7 67 18 133/81 (98) 98 01/12/19 04:06 99 Nasal Cannula 2.0 28 01/12/19 04:06 Nasal Cannula 2.0 28 01/12/19 00:27 70 01/12/19 00:00 98.3 66 18 135/69 (91) 98 01/11/19 21:00 Nasal Cannula 2.0 01/11/19 20:00 97.4 71 19 130/66 (87) 97 01/11/19 20:00 72 Intake and Output 01/11/19 01/12/19 19:00 07:00 Output Total 350 ml 400 ml Balance -350 ml -400 ml Output Urine Total 350 ml 400 ml Laboratory Tests Test 01/12/19 08:50 White Blood Count 6.4 K/UL (4.8-10.8) Red Blood Count 2.95 M/UL (4.20-5.40) L Hemoglobin 9.3 G/DL (12.0-16.0) L Hematocrit 30.2 % (37.0-47.0) L Mean Corpuscular Volume 102 FL (80-99) H Mean Corpuscular Hemoglobin 31.4 PG (27.0-31.0) H Mean Corpuscular Hemoglobin Concent 30.7 G/DL (32.0-36.0) L Red Cell Distribution Width 16.3 % (11.6-14.8) H Platelet Count 46 K/UL (150-450) L Mean Platelet Volume 15.0 FL (6.5-10.1) H Neutrophils (%) (Auto) % (45.0-75.0) Lymphocytes (%) (Auto) % (20.0-45.0) Monocytes (%) (Auto) % (1.0-10.0) Eosinophils (%) (Auto) % (0.0-3.0) Basophils (%) (Auto) % (0.0-2.0) Differential Total Cells Counted 100 Neutrophils % (Manual) 85 % (45-75) H Lymphocytes % (Manual) 9 % (20-45) L Monocytes % (Manual) 3 % (1-10) Eosinophils % (Manual) 0 % (0-3) Basophils % (Manual) 0 % (0-2) Band Neutrophils 3 % (0-8) Platelet Estimate Decreased L Platelet Morphology Normal Hypochromasia 1+ Anisocytosis 1+ Macrocytosis 1+ Sodium Level 140 MMOL/L (136-145) Potassium Level 3.9 MMOL/L (3.5-5.1) Chloride Level 110 MMOL/L (98-107) H Carbon Dioxide Level 21 MMOL/L (21-32) Anion Gap 9 mmol/L (5-15) Blood Urea Nitrogen 31 mg/dL (7-18) H Creatinine 1.8 MG/DL (0.55-1.30) H Estimat Glomerular Filtration Rate mL/min (>60) Glucose Level 134 MG/DL (74-106) H Calcium Level 9.2 MG/DL (8.5-10.1) Objective HEAD AND NECK: Mild JVD. LUNGS: Decreased breath sounds. CARDIOVASCULAR: Irregular S1 and S2 with no gallop. Defibrillator in left subclavian. ABDOMEN: Soft. EXTREMITIES: No pitting edema. Gabe Hi MD Jan 12, 2019 16:38
--- NOTE | 2019-01-12 19:30 | NUR ---
NURSE NOTES: Received report from RADAMES Liang. Pt is resting in the bed w/o distress in 2L NC. Pt is non verbal, V-paced 70 in the monitor. P200 applied, bear hugger is ready to use to warm pt, PRN. Currently, pt has no working IV access. Skin is edematous. L foot 24G, the site is swollen, +2 edema noted and it will be removed. Med will be given after establishing new IV site. Bed alarm on, breaks are engaged. Call light and side table are w/in reach. Will follow plans of care. Addendum: 01/12/19 at 2250 by KATHYA MOLINA RN Trial of having new IV line was not successful. Will try it again later time.
--- NOTE | 2019-01-12 19:56 | NUR ---
HAND-OFF: Report given to wilbert Gonzalez.
[2019-01-12 20:00] VITALS: BP 135/81
--- NOTE | 2019-01-12 20:52 | General Progress Note ---
Assessment/Plan Assessment/Plan Assessment/Plan: # Severe Pancytopenia -- multiple etiologies could be related to underlying liver disease, medication-induced, infection versus viral syndrome, ID with abx now --> peripheral smear has been ordered and does not show significant abnormalities, however concerning Ca++ elevated --> SPEP is negative for bands, upep pending --> Continue to monitor for improvement, trend cbc --> Hep panel and HIV are both negative --> US abd ordered to r/o cirrhosis and hepatosplenomegaly does not show it --> consider other causes, infections that could contribute --> reverse isolation if ANC is <2000 --> Give neupogen if ANC <1000 --> Transfuse if hgb <7, with 1 unit prbc --> consider bone marrow biopsy if no other causes are found, will dw pathologist # Coagulation defect, unspecified (D68.9) aka coagulopathy, multifactorial usually related to poor PO intake versus medications, versus hepatitis v cirrhosis --> administer Vitamin K if patient is bleeding or FFP if the INR is >10 --> hold off on ffp unless active procedure/bleeding, first begin with vit K 10 --> mixing study as needed # Severe Sepsis woth likely hcap --> on abx as per ID team # Acute metabolic encephalopathy superimposed on severe dementia --> on IV antibiotics to vanco and meropenem --> check blood cultures, serial lactate and PCT # Hypernatremia --> d5w as per Nephrology consulted # Chronic sCHF s/p AICD --> off anticoagulation, reviewed recs of Dr. Hi # Atrial fibrillation The timing of this note does not necessarily reflect the time of the patient was seen. Greatly appreciate consultation! Subjective Constitutional: Denies: no symptoms, chills, diaphoresis, fever, malaise, weakness, other HEENT: Denies: no symptoms, eye pain, blurred vision, tearing, double vision, ear pain, ear discharge, nose pain, nose congestion, throat pain, throat swelling, mouth pain, mouth swelling, other Cardiovascular: Denies: no symptoms, chest pain, edema, irregular heart rate, lightheadedness, palpitations, syncope, other Respiratory: Denies: no symptoms, cough, orthopnea, shortness of breath, SOB with excertion, SOB at rest, sputum, stridor, wheezing, other Gastrointestinal/Abdominal: Denies: no symptoms, abdomen distended, abdominal pain, black stools, tarry stools, blood in stool, constipated, diarrhea, difficulty swallowing, nausea, poor appetite, poor fluid intake, rectal bleeding , vomiting, other Genitourinary: Denies: no symptoms, burning, discharge, frequency, flank pain, hematuria, incontinence, pain, urgency, other Neurologic/Psychiatric: Denies: no symptoms, anxiety, depressed, emotional problems, headache, numbness, paresthesia, pre-existing deficit, seizure, tingling, tremors, weakness, other Endocrine: Denies: no symptoms, excessive sweating, flushing, intolerance to cold, intolerance to heat, increased hunger, increased thirst, increased urine, unexplained weight gain, unexplained weight loss, other Hematologic/Lymphatic: Denies: no symptoms, anemia, easy bleeding, easy bruising, other Allergies: Coded Allergies: No Known Allergies (Unverified , 01/06/19) Subjective 01/08: pending lab workup, us of the abd pending, spep and dic panel pending 01/10: Seen by bedside, remains lethargic, no acute distress, plt remains low at 46 01/11: resting in bed, no acute distress, plt trending down 38 01/12: awake, comfortable, no acute distress noted, plt trending up Objective Last 24 Hour Vital Signs Date Time Temp Pulse Resp B/P (MAP) Pulse Ox O2 Delivery O2 Flow Rate FiO2 01/12/19 16:11 70 01/12/19 15:58 97.3 70 20 131/71 (91) 100 01/12/19 12:08 97.1 71 20 128/72 (90) 98 01/12/19 11:57 70 01/12/19 10:58 71 01/12/19 08:23 Nasal Cannula 2.0 01/12/19 08:10 96.9 68 20 139/74 (95) 100 01/12/19 07:24 71 01/12/19 04:21 70 01/12/19 04:20 97.7 67 18 133/81 (98) 98 01/12/19 04:06 99 Nasal Cannula 2.0 28 01/12/19 04:06 Nasal Cannula 2.0 28 01/12/19 00:27 70 01/12/19 00:00 98.3 66 18 135/69 (91) 98 01/11/19 21:00 Nasal Cannula 2.0 Intake and Output 01/11/19 01/12/19 18:59 06:59 Output Total 350 ml 400 ml Balance -350 ml -400 ml Output Urine Total 350 ml 400 ml Laboratory Tests 01/12/19 08:50: White Blood Count 6.4, Red Blood Count 2.95L, Hemoglobin 9.3L, Hematocrit 30.2L , Mean Corpuscular Volume 102H, Mean Corpuscular Hemoglobin 31.4H, Mean Corpuscular Hemoglobin Concent 30.7L, Red Cell Distribution Width 16.3H, Platelet Count 46L, Mean Platelet Volume 15.0H, Neutrophils (%) (Auto) , Lymphocytes (%) (Auto) , Monocytes (%) (Auto) , Eosinophils (%) (Auto) , Basophils (%) (Auto) , Differential Total Cells Counted 100, Neutrophils % ( Manual) 85H, Lymphocytes % (Manual) 9L, Monocytes % (Manual) 3, Eosinophils % ( Manual) 0, Basophils % (Manual) 0, Band Neutrophils 3, Platelet Estimate DecreasedL, Platelet Morphology Normal, Hypochromasia 1+, Anisocytosis 1+, Macrocytosis 1+, Sodium Level 140, Potassium Level 3.9, Chloride Level 110H, Carbon Dioxide Level 21, Anion Gap 9, Blood Urea Nitrogen 31H, Creatinine 1.8H, Estimat Glomerular Filtration Rate , Glucose Level 134H, Calcium Level 9.2 Height (Feet): 5 Height (Inches): 2.00 Weight (Pounds): 187 Objective PE General Appearance: lethargic ++2l NC Lines, tubes and drains: peripheral HEENT: normocephalic, atraumatic Neck: normal alignment Respiratory/Chest: lungs clear, normal breath sounds Cardiovascular/Chest: normal peripheral pulses, normal rate Abdomen: non tender, soft, no organomegaly Extremities: non-tender, normal inspection : Blane Peralta MD Jan 12, 2019 20:52
[2019-01-13] VITALS: BP 113/52
--- NOTE | 2019-01-13 00:03 | NUR ---
NURSE NOTES: IV insertion is not successful. Will contact PCP regarding no IV access and reporting that non of IV was given. Pt is sleeping in the bed w/o distress at this time. VSS. Will continue to monitor. Addendum: 01/13/19 at 0030 by KATHYA MOLINA RN Dr. Pipo Mejia was called and ordered PICC insertion. Also, he was noticed regarding non of IV med given including Flagyl and D5W. Will carry out the order.
[2019-01-13] MEDS ORDERED: Heparin1,000 units/500ml Premix(Conc:2 units/ml) IV ONE (00:30)
[2019-01-13] MEDS ORDERED: Lidocaine 1% Plain 30 ml INJ ONE (00:30)
[2019-01-13 03:45] VITALS: BP 129/78
--- NOTE | 2019-01-13 03:51 | NUR ---
TRANSFER TO FLOOR: Patient transferred to , Rm [id number], per Dr. Herron. Report given to Ann Marie Hardy RN. gambling monitor was off and the monitor was returned to 2E station. Belongings and medications given to pt and was checked by RN. Wound assessment and picture was taken together with Receiving RN. New picture was uploaded. Family and or S/O informed of transfer.
--- NOTE | 2019-01-13 03:55 | NUR ---
NURSE NOTES: Received patient from telemetry, arousable to name and touch, no s/s acute distress noted. No iv access noted. Bowens catheter intact and patent, draining yellow urine. Noted sacral st2 pressure ulcer, picture taken, turned and repositioned. Will continue plan of care.
[2019-01-13] MEDS: Pantoprazole Inj IVP SCH ×3 (04:00→20:14)
[2019-01-13] MEDS: ceFAZolin sod 1 GM in D5W 55 ML IVPB SCH ×3 (05:00→20:14)
[2019-01-13] MEDS ORDERED: LORazepam Inj 2mg/ml 1ml IV PRN (07:00)
--- NOTE | 2019-01-13 07:09 | NUR ---
HAND-OFF: Report given to Cole CRUM.
[2019-01-13 08:00] VITALS: BP 151/74
--- NOTE | 2019-01-13 09:27 | General Progress Note ---
Assessment/Plan Assessment/Plan #Severe Sepsis #MSSA pneumonia, possibly dye to aspiration #E. 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 [employer], continue dysphagia diet #Hypernatremia -resolved -monitor BMP -Nephrology following #Chronic sCHF s/p AICD #Atrial fibrillation #HTN #CAD -BP intermittently elevated -will add low dose Coreg -Cardiology eval appreciated VTE PPx Heparin SC DNR/DNI Subjective Date patient seen: Jan 13, 2019 Time patient seen: 09:12 ROS Limited/Unobtainable: Yes Allergies: Coded Allergies: No Known Allergies (Unverified , 01/06/19) Subjective Medicine follow up for severe sepsis, suspected HCAP, hypernatremia, acute metabolic encephalopathy More lethargic today Objective Last 24 Hour Vital Signs Date Time Temp Pulse Resp B/P (MAP) Pulse Ox O2 Delivery O2 Flow Rate FiO2 01/13/19 08:00 97.5 70 20 151/74 (99) 100 01/13/19 03:45 97.2 68 20 129/78 (95) 95 01/13/19 00:00 97.7 71 18 113/52 (72) 94 01/12/19 23:29 70 01/12/19 21:00 Nasal Cannula 2.0 01/12/19 20:49 70 01/12/19 20:00 97.7 72 18 135/81 (99) 98 01/12/19 20:00 Nasal Cannula 2.0 28 01/12/19 20:00 98 Nasal Cannula 2.0 28 01/12/19 16:11 70 01/12/19 15:58 97.3 70 20 131/71 (91) 100 01/12/19 12:08 97.1 71 20 128/72 (90) 98 01/12/19 11:57 70 01/12/19 10:58 71 Intake and Output 01/12/19 01/13/19 19:00 07:00 Intake Total 100 ml Output Total 400 ml 500 ml Balance -300 ml -500 ml Intake Oral 100 ml Output Urine Total 400 ml 500 ml Height (Feet): 5 Height (Inches): 2.00 Weight (Pounds): 200 General Appearance: lethargic Neck: normal alignment Cardiovascular: normal rate, regular rhythm Respiratory/Chest: lungs clear, normal breath sounds Abdomen: non tender, soft Molazadeh-Yazdi,[place] MD Jan 13, 2019 09:27
[2019-01-13] MEDS ORDERED: Lidocaine 1% Plain 30 ml INJ PRN (11:30)
[2019-01-13] MEDS ORDERED: Heparin1,000 units/500ml Premix(Conc:2 units/ml) IV PRN (11:30)
[2019-01-13 12:00] VITALS: BP 132/71
--- NOTE | 2019-01-13 12:18 | NUR ---
ST NOTE: SWALLOW STATUS FOLLOWED UP PT'S CONDITION FOR DYSPHAGIA MANAGEMENT PT SEEN AT BEDSIDE IN AM. ASLEEP. UNABLE TO COMPLETE VIDEOSWALLOW STUDY AT THIS TIME. SPOKE TO RNFLORENTINO RE: PT'S CONDITIONS LATER IN AM. PER RN, PT REFUSED TO EAT/DRINK BY MOUTH EVEN GIVEN MAX CUES/ENCOURAGEMENT. IF PO IS SUBOPTIMAL, CONSIDER PEG VS PALLIATIVE CARE. D/W THE STAFF.
--- NOTE | 2019-01-13 13:34 | NUR ---
NURSE NOTES: RN MADE PT'S AWARE OF ORDER FOR PICC LINE. PER MYKE MORGAN (), HE AGREES TO PICC LINE. FRANK CRUM VERIFIED TELEPHONE CONSENT. INTERVENTIONAL RADIOLOGY MADE AWARE OF SIGNED CONSENT AND PROCEDURE ARRANGED FOR LATER TODAY.
[2019-01-13 16:00] VITALS: BP 134/54
--- NOTE | 2019-01-13 16:08 | Diagnostic Imaging Report ---
Indication: terminal supervisor venous access Findings: After the indications, procedure, risks, complications, and alternatives of the procedure were explained, written informed consent was obtained. The right upper extremity was prepped with alcohol. All elements of maximal sterile barrier technique were followed including usage of a cap, mask, sterile gown, sterile gloves, hand hygiene and a large sterile sheet. Sonographic evaluation of the upper extremity was performed demonstrating a patent and compressible basilic vein. Access was obtained under real-time ultrasound guidance (with utilization of sterile gel and sterile probe cover) and digital image was saved and archived. An .018 wire was introduced. Needle exchanged for a 5 Singaporean peel-away sheath. Measurements were obtained. A 5 Singaporean dual-lumen Power PICC line catheter was cut to 38 cm and introduced over the wire. Peel-away sheath and wire were removed.Catheter was secured to the skin using 2-0 Prolene suture. Both ports aspirate and flush easily. A single fluoroscopic image shows the distal tip in the superior vena cava. Fluoroscopic time 9.4 seconds. Impression: Successful placement of an upper extremity PICC line catheter
--- NOTE | 2019-01-13 16:15 | Infectious Diseases Prog Note ---
Assessment/Plan Assessment/Plan ASSESSMENT AND PLAN: 1. e.coli uti, staph aureus pna/MSSA, possible aspiration pna with jennifer-hilar infiltrate, sepsis, sirs, leukopenia, hypothermia, ams/lethargy - - ancef and flagyl - day # 7 abx - f/u on labs and monitor chest x-ray closely - pulmonary treatment 2. The patient has severe hypernatremia. 3. Dehydration. 4. Acute kidney injury. 5. Elevated creatinine. 6. Intravenous fluids. 7. Hypothermia. 8. Pancytopenia. Workup per Hematology/Oncology. 9. Hypertension. 10. Coronary artery disease. 11. Congestive heart failure. 12. Automatic implanted cardioverter. 13. Subdural hematoma. 14. Severe dementia. 15. Aspiration risk. 16. No known drug allergies. 17. Social history is negative. 18. Family history is noncontributory. 19. MAR was noted. 20. Case was discussed with RN. 21. Encephalopathy. 22. Skin care protocol. 23. The patient is DNR/DNI. 24. aspiration precautions 25. mrsa colonization 26. wound care per protocol - sacral wound noted and not acutely infected Subjective Constitutional: Reports: fatigue; Denies: fever HEENT: Reports: congestion - mild Respiratory: Reports: shortness of breath - mild Gastrointestinal/Abdominal: Denies: nausea, vomiting, diarrhea Genitourinary: Reports: other - + pendleton Neurologic: Reports: weakness, other - alert Psychiatric: Reports: other - na Skin: Denies: rash Hematologic: Denies: bleeding Musculoskeletal: Denies: pain Allergies: Coded Allergies: No Known Allergies (Unverified , 01/06/19) Objective Vital Signs Last 24 Hour Vital Signs Date Time Temp Pulse Resp B/P (MAP) Pulse Ox O2 Delivery O2 Flow Rate FiO2 01/13/19 12:00 98.1 71 20 132/71 (91) 100 01/13/19 09:00 Nasal Cannula 2.0 01/13/19 08:00 97.5 70 20 151/74 (99) 100 01/13/19 03:45 97.2 68 20 129/78 (95) 95 01/13/19 00:00 97.7 71 18 113/52 (72) 94 01/12/19 23:29 70 01/12/19 21:00 Nasal Cannula 2.0 01/12/19 20:49 70 01/12/19 20:00 97.7 72 18 135/81 (99) 98 01/12/19 20:00 Nasal Cannula 2.0 28 01/12/19 20:00 98 Nasal Cannula 2.0 28 01/12/19 16:11 70 Height (Feet): 5 Height (Inches): 2.00 Weight (Pounds): 200 General Appearance: no acute distress HEENT: normocephalic, atraumatic, anicteric, mucous membranes moist, EOMI, supple, no JVD Respiratory/Chest: crackles/rales, rhonchi - bilaterally Cardiovascular: normal rate, regular rhythm, no gallop/murmur, no JVD Abdomen: normal bowel sounds, no organomegaly Genitourinary: other - + pendleton - urine fairly clear Extremities: no cyanosis Skin: no rash, other - wounds covered 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 Surgical clips are seen in the left axilla. The heart is borderline enlarged. The lungs demonstrate possible hazy infiltrate in left perihilar region Impression: Possible left perihilar infiltrate Borderline cardiomegaly Other findings as noted 01/12 - chest x-ray - Comparison: 01/10/2019 Findings: The heart is enlarged. There is patchy parenchymal opacity in the left suprahilar region which is not evident previously. There is equivocal minimal interstitial congestive change. The lungs and pleural spaces are otherwise grossly clear, although a pacemaker obscures much of the left lung. Surgical clips are seen in the left chest wall Impression: New or increased patchy left suprahilar opacity Equivocal minimal interstitial congestion Microbiology Date/Time Source Procedure Growth Status 01/06/19 17:25 Blood Blood Culture - Final NO GROWTH AFTER 5 DAYS Complete 01/08/19 07:00 Sputum Induced Gram Stain - Final Complete 01/08/19 07:00 Sputum Culture - Final Staphylococcus Aureus Complete 01/07/19 11:30 Urine,Clean Catch Urine Culture - Final Escherichia Coli Complete 01/06/19 18:10 Rectum VRE Culture - Final NO VANCOMYCIN RESISTANT ENTEROCOCCUS ... Complete 01/06/19 18:10 Rectum - Final NO CARBAPENEM-RESISTANT ENTEROBACTERI... Complete Labs Test 01/11/19 06:29 01/12/19 08:50 White Blood Count 5.5 K/UL (4.8-10.8) 6.4 K/UL (4.8-10.8) Red Blood Count 3.04 M/UL (4.20-5.40) 2.95 M/UL (4.20-5.40) Hemoglobin 9.6 G/DL (12.0-16.0) 9.3 G/DL (12.0-16.0) Hematocrit 31.6 % (37.0-47.0) 30.2 % (37.0-47.0) Mean Corpuscular Volume 104 FL (80-99) 102 FL (80-99) Mean Corpuscular Hemoglobin 31.5 PG (27.0-31.0) 31.4 PG (27.0-31.0) Mean Corpuscular Hemoglobin Concent 30.3 G/DL (32.0-36.0) 30.7 G/DL (32.0-36.0) Red Cell Distribution Width 16.8 % (11.6-14.8) 16.3 % (11.6-14.8) Platelet Count 38 K/UL (150-450) 46 K/UL (150-450) Mean Platelet Volume 11.2 FL (6.5-10.1) 15.0 FL (6.5-10.1) Neutrophils (%) (Auto) % (45.0-75.0) % (45.0-75.0) Lymphocytes (%) (Auto) % (20.0-45.0) % (20.0-45.0) Monocytes (%) (Auto) % (1.0-10.0) % (1.0-10.0) Eosinophils (%) (Auto) % (0.0-3.0) % (0.0-3.0) Basophils (%) (Auto) % (0.0-2.0) % (0.0-2.0) Differential Total Cells Counted 100 100 Neutrophils % (Manual) 91 % (45-75) 85 % (45-75) Lymphocytes % (Manual) 5 % (20-45) 9 % (20-45) Monocytes % (Manual) 4 % (1-10) 3 % (1-10) Eosinophils % (Manual) 0 % (0-3) 0 % (0-3) Basophils % (Manual) 0 % (0-2) 0 % (0-2) Band Neutrophils 0 % (0-8) 3 % (0-8) Platelet Estimate Decreased Decreased Platelet Morphology Normal Normal Anisocytosis 1+ 1+ Macrocytosis 2+ 1+ Sodium Level 144 MMOL/L (136-145) 140 MMOL/L (136-145) Potassium Level 3.9 MMOL/L (3.5-5.1) 3.9 MMOL/L (3.5-5.1) Chloride Level 113 MMOL/L (98-107) 110 MMOL/L (98-107) Carbon Dioxide Level 21 MMOL/L (21-32) 21 MMOL/L (21-32) Anion Gap 10 mmol/L (5-15) 9 mmol/L (5-15) Blood Urea Nitrogen 40 mg/dL (7-18) 31 mg/dL (7-18) Creatinine 2.3 MG/DL (0.55-1.30) 1.8 MG/DL (0.55-1.30) Estimat Glomerular Filtration Rate mL/min (>60) mL/min (>60) Glucose Level 125 MG/DL (74-106) 134 MG/DL (74-106) Calcium Level 9.4 MG/DL (8.5-10.1) 9.2 MG/DL (8.5-10.1) Hypochromasia 1+ Current Medications Medications (Trade) Dose Ordered Sig/Nuria Route PRN Reason Start Time Stop Time Status Last Admin Dose Admin Carvedilol (Coreg) 3.125 mg EVERY 12 HOURS ORAL 01/13/19 21:00 02/12/19 20:59 Cefazolin Sodium 1 gm/Dextrose 55 ml @ 110 mls/hr EVERY 12 HOURS IVPB 01/13/19 05:00 01/18/19 20:59 Chlorhexidine Gluconate (Kaylee-Hex 2%) 1 applic DAILY@2000 TOPIC 01/13/19 20:00 02/12/19 19:59 Dextrose 1,000 ml @ 100 mls/hr Q10H IV 01/13/19 04:00 02/05/19 08:04 Dextrose (Dextrose 50%) 25 ml Q30M PRN IV Hypoglycemia 01/13/19 04:00 02/05/19 18:59 Dextrose (Dextrose 50%) 50 ml Q30M PRN IV Hypoglycemia 01/13/19 04:00 02/05/19 18:59 Heparin Sodium/ Sodium Chloride (Heparin 1000 units/500ml Premix) 1,000 unit ONCE PRN IV PICC LINE 01/13/19 11:30 01/13/19 18:00 Lidocaine HCl (Xylocaine 1% 30ml) 30 ml ONCE PRN INJ PICC LINE 01/13/19 11:30 01/13/19 18:00 Lorazepam (Ativan 2mg/ml 1ml) 1 mg Q4H PRN IV For Anxiety 01/13/19 07:00 01/14/19 14:59 Metronidazole 100 ml @ 100 mls/hr Q8HR IVPB 01/13/19 06:00 01/18/19 21:59 Pantoprazole (Protonix) 40 mg EVERY 12 HOURS IVP 01/13/19 04:00 02/06/19 20:59 Ninfa Vences MD Jan 13, 2019 16:15
--- NOTE | 2019-01-13 16:49 | Cardiac Electrophysiology PN ---
Assessment/Plan Assessment/Plan 1. Atrial fibrillation. The rate is controlled on Coreg Off anticoagulation for thrombocytopenia. Off tele 2. Status post Medtronic biventricular ICD. No shocks 3. Congestive heart failure. EF 35%. 4. Severe hypernatremia and renal failure. On IV fluids per Dr. Wells. 5. History of hypertension. On Coreg 6. MRSA PNA on Abx 7. Altered mental status. 8. Thrombocytopenia. 9. Hx of CVA with aphasia Subjective Subjective No significant change. On NMB Objective Last 24 Hour Vital Signs Date Time Temp Pulse Resp B/P (MAP) Pulse Ox O2 Delivery O2 Flow Rate FiO2 01/13/19 12:00 98.1 71 20 132/71 (91) 100 01/13/19 09:00 Nasal Cannula 2.0 01/13/19 08:00 97.5 70 20 151/74 (99) 100 01/13/19 03:45 97.2 68 20 129/78 (95) 95 01/13/19 00:00 97.7 71 18 113/52 (72) 94 01/12/19 23:29 70 01/12/19 21:00 Nasal Cannula 2.0 01/12/19 20:49 70 01/12/19 20:00 97.7 72 18 135/81 (99) 98 01/12/19 20:00 Nasal Cannula 2.0 28 01/12/19 20:00 98 Nasal Cannula 2.0 28 Intake and Output 01/12/19 01/13/19 19:00 07:00 Intake Total 100 ml Output Total 400 ml 500 ml Balance -300 ml -500 ml Intake Oral 100 ml Output Urine Total 400 ml 500 ml Objective HEAD AND NECK: Mild JVD. LUNGS: Decreased breath sounds. CARDIOVASCULAR: Irregular S1 and S2 with no gallop. Defibrillator in left subclavian. ABDOMEN: Soft. EXTREMITIES: No pitting edema. Gabe Hi MD Jan 13, 2019 16:49
--- NOTE | 2019-01-13 17:30 | Nephrology Progress Note ---
Assessment/Plan Problem List: (1) Acute renal failure (2) Dehydration (3) Hypernatremia (4) Anemia Assessment acute Renal Failure Cr lowering Sepsis / UTI / Pneumonia Acute metabolic Encephalopathy Hypernatremia AICD AT FIB CAD HTN presents with Low BP Anemia DNR DNI Plan Free water administration watch for chf pendleton hold mind altering meds protonix IV DC Motrin !!! Subjective ROS Limited/Unobtainable: No Constitutional: Reports: malaise Objective Objective Last 24 Hour Vital Signs Date Time Temp Pulse Resp B/P (MAP) Pulse Ox O2 Delivery O2 Flow Rate FiO2 01/13/19 12:00 98.1 71 20 132/71 (91) 100 01/13/19 09:00 Nasal Cannula 2.0 01/13/19 08:00 97.5 70 20 151/74 (99) 100 01/13/19 03:45 97.2 68 20 129/78 (95) 95 01/13/19 00:00 97.7 71 18 113/52 (72) 94 01/12/19 23:29 70 01/12/19 21:00 Nasal Cannula 2.0 01/12/19 20:49 70 01/12/19 20:00 97.7 72 18 135/81 (99) 98 01/12/19 20:00 Nasal Cannula 2.0 28 01/12/19 20:00 98 Nasal Cannula 2.0 28 Intake and Output 01/12/19 01/13/19 19:00 07:00 Intake Total 100 ml Output Total 400 ml 500 ml Balance -300 ml -500 ml Intake Oral 100 ml Output Urine Total 400 ml 500 ml Height (Feet): 5 Height (Inches): 2.00 Weight (Pounds): 200 General Appearance: no apparent distress Cardiovascular: normal rate Respiratory/Chest: decreased breath sounds Abdomen: soft, distended Objective no change Noe Wells MD Jan 13, 2019 17:30
--- NOTE | 2019-01-13 19:09 | NUR ---
HAND-OFF: Report given to JENNIFER MOLINA RN.
--- NOTE | 2019-01-13 19:11 | NUR ---
CASE MANAGEMENT:REVIEW 01/13/19 SI: SEPSIS. DEHYDRATION. T 97.8 HR 70 RR 20 B/P 134/54 SATS 100% ON 2L/NC NO LABS TODAY IS: IVF @ 100mL/HR CEFAZOLIN IV Q12H COREG PO Q12H FLAGYL IV Q8H : MED/SURG STATUS DCP: FROM [facility] PLAN: REFER TO [facility] IF NOT READY TO RETURN TO SNF CXR
--- NOTE | 2019-01-13 19:38 | General Progress Note ---
Assessment/Plan Assessment/Plan Assessment/Plan: # Severe Pancytopenia -- multiple etiologies could be related to underlying liver disease, medication-induced, infection versus viral syndrome, ID with abx now --> peripheral smear has been ordered and does not show significant abnormalities, however concerning Ca++ elevated --> SPEP is negative for bands, upep pending --> Continue to monitor for improvement, trend cbc --> Hep panel and HIV are both negative --> US abd ordered to r/o cirrhosis and hepatosplenomegaly does not show it --> consider other causes, infections that could contribute --> reverse isolation if ANC is <2000 --> Give neupogen if ANC <1000 --> Transfuse if hgb <7, with 1 unit prbc --> consider bone marrow biopsy if no other causes are found, will dw pathologist # Coagulation defect, unspecified (D68.9) aka coagulopathy, multifactorial usually related to poor PO intake versus medications, versus hepatitis v cirrhosis --> administer Vitamin K if patient is bleeding or FFP if the INR is >10 --> hold off on ffp unless active procedure/bleeding, first begin with vit K 10 --> mixing study as needed # Severe Sepsis woth likely hcap --> on abx as per ID team # Acute metabolic encephalopathy superimposed on severe dementia --> on IV antibiotics to vanco and meropenem --> check blood cultures, serial lactate and PCT # Hypernatremia --> d5w as per Nephrology consulted # Chronic sCHF s/p AICD --> off anticoagulation, reviewed recs of Dr. Hi # Atrial fibrillation The timing of this note does not necessarily reflect the time of the patient was seen. Greatly appreciate consultation! Subjective ROS Limited/Unobtainable: Yes Constitutional: Denies: no symptoms, chills, diaphoresis, fever, malaise, weakness, other HEENT: Denies: no symptoms, eye pain, blurred vision, tearing, double vision, ear pain, ear discharge, nose pain, nose congestion, throat pain, throat swelling, mouth pain, mouth swelling, other Cardiovascular: Denies: no symptoms, chest pain, edema, irregular heart rate, lightheadedness, palpitations, syncope, other Respiratory: Denies: no symptoms, cough, orthopnea, shortness of breath, SOB with excertion, SOB at rest, sputum, stridor, wheezing, other Gastrointestinal/Abdominal: Denies: no symptoms, abdomen distended, abdominal pain, black stools, tarry stools, blood in stool, constipated, diarrhea, difficulty swallowing, nausea, poor appetite, poor fluid intake, rectal bleeding , vomiting, other Genitourinary: Denies: no symptoms, burning, discharge, frequency, flank pain, hematuria, incontinence, pain, urgency, other Neurologic/Psychiatric: Denies: no symptoms, anxiety, depressed, emotional problems, headache, numbness, paresthesia, pre-existing deficit, seizure, tingling, tremors, weakness, other Endocrine: Denies: no symptoms, excessive sweating, flushing, intolerance to cold, intolerance to heat, increased hunger, increased thirst, increased urine, unexplained weight gain, unexplained weight loss, other Hematologic/Lymphatic: Denies: no symptoms, anemia, easy bleeding, easy bruising, other Allergies: Coded Allergies: No Known Allergies (Unverified , 01/06/19) Subjective 01/08: pending lab workup, us of the abd pending, spep and dic panel pending 01/10: Seen by bedside, remains lethargic, no acute distress, plt remains low at 46 01/11: resting in bed, no acute distress, plt trending down 38 01/12: awake, comfortable, no acute distress noted, plt trending up 01/13: seen by bedside, awake, comfortable, no acute distress. Objective Last 24 Hour Vital Signs Date Time Temp Pulse Resp B/P (MAP) Pulse Ox O2 Delivery O2 Flow Rate FiO2 01/13/19 16:00 97.8 70 20 134/54 (80) 100 01/13/19 12:00 98.1 71 20 132/71 (91) 100 01/13/19 09:00 Nasal Cannula 2.0 01/13/19 08:00 97.5 70 20 151/74 (99) 100 01/13/19 03:45 97.2 68 20 129/78 (95) 95 01/13/19 00:00 97.7 71 18 113/52 (72) 94 01/12/19 23:29 70 01/12/19 21:00 Nasal Cannula 2.0 01/12/19 20:49 70 01/12/19 20:00 97.7 72 18 135/81 (99) 98 01/12/19 20:00 Nasal Cannula 2.0 28 01/12/19 20:00 98 Nasal Cannula 2.0 28 Intake and Output 01/12/19 01/13/19 18:59 06:59 Intake Total 100 ml Output Total 400 ml 500 ml Balance -300 ml -500 ml Intake Oral 100 ml Output Urine Total 400 ml 500 ml Height (Feet): 5 Height (Inches): 2.00 Weight (Pounds): 200 Objective PE General Appearance: lethargic ++2l NC Lines, tubes and drains: peripheral HEENT: normocephalic, atraumatic Neck: normal alignment Respiratory/Chest: lungs clear, normal breath sounds Cardiovascular/Chest: normal peripheral pulses, normal rate Abdomen: non tender, soft, no organomegaly Extremities: non-tender, normal inspection : Blane Peralta MD Jan 13, 2019 19:38
--- NOTE | 2019-01-13 19:42 | NUR ---
NURSE NOTES: Patient in bed asleep, no acute distress noted. On NC at 2L, respiration even and unlabored. Right upper arm PICC intact and patent. Turned and repositioned. Will continue plan of care.
[2019-01-13 20:00] VITALS: BP 119/64
[2019-01-13] MEDS ORDERED: Dyna-Hex 2% Top Sol 2oz TOPIC SCH (20:00)
[2019-01-13] MEDS: Dyna-Hex 2% Top Sol 2oz TOPIC SCH (20:14)
[2019-01-14] VITALS: BP 118/68
[2019-01-14 04:00] VITALS: BP 124/71
--- NOTE | 2019-01-14 07:22 | NUR ---
HAND-OFF: Report given to Debbie CRUM.
[2019-01-14 07:26] LABS: HEMATOCRIT 24.7 % (37.0-47.0); HEMOGLOBIN 7.7 G/DL (12.0-16.0); MEAN CORPUSCULAR VOLUME 101 FL (80-99); PLATELET COUNT 71 K/UL (150-450); RED BLOOD COUNT 2.44 M/UL (4.20-5.40); RED CELL DISTRIBUTION WIDTH 16.5 % (11.6-14.8); WHITE BLOOD COUNT 6.8 K/UL (4.8-10.8)
[2019-01-14 07:42] LABS: ANION GAP 7 mmol/L (5-15); BLOOD UREA NITROGEN 21 mg/dL (7-18); CALCIUM 9.1 MG/DL (8.5-10.1); CARBON DIOXIDE 24 MMOL/L (21-32); CHLORIDE 108 MMOL/L (98-107); CREATININE 1.4 MG/DL (0.55-1.30); POTASSIUM 3.6 MMOL/L (3.5-5.1); SODIUM 139 MMOL/L (136-145)
--- NOTE | 2019-01-14 07:44 | NUR ---
NURSE NOTES: Patient received in stable condition, sleeping in bed. Breathing unlabored with nasal cannula at 2L/min. No s/s of pain at this time. PICC line observed on right upper arm, patent and intact. Bowens catheter draining light yellow urine. Bed locked in low position, HOB elevated 30 degrees for aspiration precautions. Call light placed within reach, will continue to monitor.
[2019-01-14 08:00] VITALS: BP 123/63
[2019-01-14] MEDS: ceFAZolin sod 1 GM in D5W 55 ML IVPB SCH ×2 (08:20→20:59)
[2019-01-14] MEDS: Pantoprazole Inj IVP SCH ×2 (08:21→20:59)
--- NOTE | 2019-01-14 10:50 | Diagnostic Imaging Report ---
Indication: Cough Technique: One view of the chest Comparison: 01/12/2019 Findings: Again demonstrated is a left chest AICD with epicardial leads. Surgical clips are seen in the left axilla. The heart is enlarged. The lungs and pleural spaces are clear. There is a right arm PICC Impression: No acute process Cardiomegaly Other findings as noted
--- NOTE | 2019-01-14 10:50 | NUR ---
RADIOLOGY DEPT CHEST X-RAY DONE.-P.DYE
[2019-01-14 12:00] VITALS: BP 127/63
--- NOTE | 2019-01-14 13:13 | NUR ---
WEEKLY SWALLOW/SPEECH THERAPY SUMMARY: SEEN FOR DYSPHAGIA, SEE SWALLOW EVALUATION REPORT. PER HER PRIMARY ST, UNABLE TO COMPLETE MOD BARIUM SWALLOW STUDY DUE TO PATIENT ASLEEP. PER RN AT PRIOR SESSION, PRIOR SESSION, PT REFUSED TO EAT/DRINK BY MOUTH EVEN GIVEN MAX CUES/ENCOURAGEMENT. GOALS MET FOR STAFF EDUCATED/TRAINED IN ASP PRECAUTIONS. GOALS FOR INTAKE NOT MET YET 25-50% ON LIQUIFIED PUREED LIKE NECTAR THICK LIQUIDS. NOT ALERT FOR PO TRIALS, LESS ALERT NOW. HAS NGT AND IS NPO PER RD 01/11/19 Glucerna 1.2 @ 55ml/hr x 24 hrs PLAN: F/UP WITH SWALLOWING TOMORROW IF INCREASED ALERTNESS D/W JERRY RN POSTED ORAL CARE AND NPO SIGN STAFF EDUCATED/TRAINED IN ORAL CARE
--- NOTE | 2019-01-14 13:33 | NUR ---
RADIOLOGY DEPT ABDOMEN X-RAY FOR NGT PLMT COMPLETED.-P.DYE
--- NOTE | 2019-01-14 14:52 | Nephrology Progress Note ---
Assessment/Plan Problem List: (1) Acute renal failure Assessment: resolving (2) Dehydration (3) Hypernatremia (4) Anemia Assessment acute Renal Failure Cr lowering Sepsis / UTI / Pneumonia Acute metabolic Encephalopathy Hypernatremia AICD AT FIB CAD HTN presents with Low BP Anemia DNR DNI Plan Free water administration watch for chf pendleton hold mind altering meds protonix IV DC Motrin !!! Subjective ROS Limited/Unobtainable: No Constitutional: Reports: malaise Objective Objective Last 24 Hour Vital Signs Date Time Temp Pulse Resp B/P (MAP) Pulse Ox O2 Delivery O2 Flow Rate FiO2 01/14/19 12:00 98.5 72 20 127/63 (84) 100 01/14/19 09:00 Nasal Cannula 2.0 01/14/19 08:21 69 124/71 01/14/19 08:00 97.8 71 20 123/63 (83) 100 01/14/19 04:00 97.6 69 18 124/71 (88) 99 01/14/19 00:00 98.0 71 20 118/68 (85) 98 01/13/19 21:00 Nasal Cannula 2.0 01/13/19 20:14 70 119/64 01/13/19 20:04 99 Nasal Cannula 2.0 28 01/13/19 20:04 Nasal Cannula 2.0 28 01/13/19 20:00 97.0 70 21 119/64 (82) 99 01/13/19 16:00 97.8 70 20 134/54 (80) 100 Intake and Output 01/13/19 01/14/19 19:00 07:00 Intake Total 420 ml 855 ml Output Total 350 ml 400 ml Balance 70 ml 455 ml Intake Oral 120 ml IV Total 300 ml 855 ml Output Urine Total 350 ml 400 ml Laboratory Tests 01/14/19 05:40: White Blood Count 6.8, Red Blood Count 2.44L, Hemoglobin 7.7L, Hematocrit 24.7L , Mean Corpuscular Volume 101H, Mean Corpuscular Hemoglobin 31.6H, Mean Corpuscular Hemoglobin Concent 31.2L, Red Cell Distribution Width 16.5H, Platelet Count 71L, Mean Platelet Volume 10.9H, Neutrophils (%) (Auto) , Lymphocytes (%) (Auto) , Monocytes (%) (Auto) , Eosinophils (%) (Auto) , Basophils (%) (Auto) , Differential Total Cells Counted 100, Neutrophils % ( Manual) 89H, Lymphocytes % (Manual) 5L, Monocytes % (Manual) 6, Eosinophils % ( Manual) 0, Basophils % (Manual) 0, Band Neutrophils 0, Platelet Estimate DecreasedL, Platelet Morphology , Giant Platelets Occasional, Hypochromasia 1+, Anisocytosis 1+, Macrocytosis 1+, Sodium Level 139, Potassium Level 3.6, Chloride Level 108H, Carbon Dioxide Level 24, Anion Gap 7, Blood Urea Nitrogen 21H, Creatinine 1.4H, Estimat Glomerular Filtration Rate , Glucose Level 112H, Calcium Level 9.1 Height (Feet): 5 Height (Inches): 2.00 Weight (Pounds): 200 General Appearance: no apparent distress Cardiovascular: normal rate Respiratory/Chest: decreased breath sounds Abdomen: distended Objective no change Noe Wells MD Jan 14, 2019 14:52
--- NOTE | 2019-01-14 14:53 | NUR ---
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 98.5 HR 72 RR 20 B/P 127/63 2L NC H/H 7.7/24.7 BUN 21 CR 1.4 CXR= CARDIOMEGALY. NO ACUTE DISEASE IS: CEFAZOLIN IV FLAGYL IV IVF D5@ 100ML/HR COREG PO MED/SURG STATUS
--- NOTE | 2019-01-14 15:14 | NUR ---
RD ASSESSMENT & RECOMMENDATIONS SEE CARE ACTIVITY FOR COMPLETE ASSESSMENT DAILY ESTIMATED NEEDS: Needs based on Wound, obese 58.8kg adj 25-30 kcals/kg 3191-1229 total kcals 1.25-1.5 g protein/kg 74-88 g total protein 25-30 mL/kg 6234-4342 total fluid mLs NUTRITION DIAGNOSIS: 1) Increased kcal and protein needs r/t wound healing as evidenced by pt w/ sacral stage 2 per RN 2) Altered nutrition related lab values r/t water deficits, clinical condition, h/o DM as evidenced by pt adm w/ Na 165-> now normalized, elev BUN and creat (21/1.4 trend down), elev BGs (112 134 125 142 185) . 3) Swallowing difficulty R/T dysphagia w/ h/o CVA, lethargy as evidenced by pt previously on liquify pureed, NTL, now made NPO again, s/p NGT insertion. CURRENT DIET:LOW NA/ liquify pureed, NTL -> NOW NPO PO DIET RECOMMENDATIONS: IF SAFE FOR ORAL DIET -> Liberalized REGULAR (texture per [employer] SPECIALIST) ENTERAL NUTRITION RECOMMENDATIONS: Glucerna 1.2 @ 55ml/hr x 24 hrs to provide 1320ml, 1584kcal, 79g prot, 1063ml free water * When medically appropriate, initiate Glucerna 1.2 @ 15ml/hr x 6 hrs * Advance 10ml q 4-6 hrs as tolerated to goal rate. * HOB over 30 degrees/ water flush per MD ADDITIONAL RECOMMENDATIONS: 1) RE-calibrate bed scale w/ added P200 mattress 2) Wound healing: Add SWAPNA BID, Vit C 500mg Q/ Rec wound eval 3) W/ TF, monitor lytes daily, replete as needed 4) Monitor BGs, need for hypoglycemic agent - h/o DM .
--- NOTE | 2019-01-14 15:44 | General Progress Note ---
Assessment/Plan Assessment/Plan #Severe Sepsis #MSSA pneumonia, possibly due to aspiration #E. coli UTI #Acute metabolic encephalopathy superimposed on severe dementia -continue current antibiotics -aspiration precautions -will place NGT for nutritional support given lethargy and scant oral intake #Hypernatremia -resolved -monitor BMP -Nephrology following #Chronic sCHF s/p AICD #Atrial fibrillation #HTN #CAD -HTN controlled -Continue Coreg -Cardiology eval appreciated VTE PPx Heparin SC DNR/DNI Subjective Date patient seen: Jan 14, 2019 Time patient seen: 09:24 ROS Limited/Unobtainable: Yes Allergies: Coded Allergies: No Known Allergies (Unverified , 01/06/19) Subjective Medicine follow up for severe sepsis, suspected HCAP, hypernatremia, acute metabolic encephalopathy Labs improved Remains lethargic, minimal oral intake Objective Last 24 Hour Vital Signs Date Time Temp Pulse Resp B/P (MAP) Pulse Ox O2 Delivery O2 Flow Rate FiO2 01/14/19 12:00 98.5 72 20 127/63 (84) 100 01/14/19 09:00 Nasal Cannula 2.0 01/14/19 08:21 69 124/71 01/14/19 08:00 97.8 71 20 123/63 (83) 100 01/14/19 04:00 97.6 69 18 124/71 (88) 99 01/14/19 00:00 98.0 71 20 118/68 (85) 98 01/13/19 21:00 Nasal Cannula 2.0 01/13/19 20:14 70 119/64 01/13/19 20:04 99 Nasal Cannula 2.0 28 01/13/19 20:04 Nasal Cannula 2.0 28 01/13/19 20:00 97.0 70 21 119/64 (82) 99 01/13/19 16:00 97.8 70 20 134/54 (80) 100 Intake and Output 01/13/19 01/14/19 19:00 07:00 Intake Total 420 ml 855 ml Output Total 350 ml 400 ml Balance 70 ml 455 ml Intake Oral 120 ml IV Total 300 ml 855 ml Output Urine Total 350 ml 400 ml Laboratory Tests 01/14/19 05:40: White Blood Count 6.8, Red Blood Count 2.44L, Hemoglobin 7.7L, Hematocrit 24.7L , Mean Corpuscular Volume 101H, Mean Corpuscular Hemoglobin 31.6H, Mean Corpuscular Hemoglobin Concent 31.2L, Red Cell Distribution Width 16.5H, Platelet Count 71L, Mean Platelet Volume 10.9H, Neutrophils (%) (Auto) , Lymphocytes (%) (Auto) , Monocytes (%) (Auto) , Eosinophils (%) (Auto) , Basophils (%) (Auto) , Differential Total Cells Counted 100, Neutrophils % ( Manual) 89H, Lymphocytes % (Manual) 5L, Monocytes % (Manual) 6, Eosinophils % ( Manual) 0, Basophils % (Manual) 0, Band Neutrophils 0, Platelet Estimate DecreasedL, Platelet Morphology , Giant Platelets Occasional, Hypochromasia 1+, Anisocytosis 1+, Macrocytosis 1+, Sodium Level 139, Potassium Level 3.6, Chloride Level 108H, Carbon Dioxide Level 24, Anion Gap 7, Blood Urea Nitrogen 21H, Creatinine 1.4H, Estimat Glomerular Filtration Rate , Glucose Level 112H, Calcium Level 9.1 Height (Feet): 5 Height (Inches): 2.00 Weight (Pounds): 200 General Appearance: lethargic Cardiovascular: normal rate, regular rhythm Respiratory/Chest: lungs clear, normal breath sounds, no accessory muscle use Abdomen: non tender, soft Rome Diamond MD Jan 14, 2019 15:44
[2019-01-14 16:00] VITALS: BP 118/64
--- NOTE | 2019-01-14 16:11 | Diagnostic Imaging Report ---
Indication: Post nasogastric tube placement Technique: Supine view of the upper abdomen Comparison: none Findings: There is a nasogastric tube in place, tip projected level gastric antrum, proximal port well beyond gastroesophageal junction. There is an inferior vena cava filter in place. Bowel gas pattern is unremarkable. The chest demonstrates an AICD Impression: Satisfactory position of nasogastric tube, suitable for use Patient's nurse notified at the time of interpretation
--- NOTE | 2019-01-14 16:58 | NUR ---
NURSE NOTES: Patient's inquired the reason for the NG tube insertion. RN explained to the that the patient has refused to eat or drink meals noted from yesterday. RN explained to the that the nurses have attempted to feed the patient, even tried different flavors to appease the patient's appetite. RN informed the patient's that the patient is drowsy, lethargic, refuses feeding, and does not eat - the liquid spills out of her mouth. RN explained the benefits of NG tube, and informed him that she has not been getting her required daily nutrients, which will lead to further weakening. Patient's agreed to let the tube remain inserted. However, requests that should the patient pull out the tube, that it not be re-inserted. RN verbalized understanding, taped sign on bedside, patient's aware. RN notified Dr. Alvarado who had ordered the tube placement of the above. He ordered hospice care consult. G-tube currently running at 15cc/hr per orders. No s/s of adverse reactions or complications. Correct placement was confirmed verbally by radiologist.
--- NOTE | 2019-01-14 17:29 | Cardiac Electrophysiology PN ---
Assessment/Plan Assessment/Plan 1. Atrial fibrillation. The rate is controlled on Coreg Off anticoagulation for thrombocytopenia 2. Status post [employer] biventricular ICD. No shocks 3. Congestive heart failure. EF 35%. 4. Severe hypernatremia and renal failure. On IV fluids per Dr. Wells. 5. History of hypertension. On Coreg 6. MRSA PNA on Abx 7. Altered mental status. 8. Thrombocytopenia. 9. Hx of CVA with aphasia Hospice care Subjective Subjective No significant change. NG tube is back in Objective Last 24 Hour Vital Signs Date Time Temp Pulse Resp B/P (MAP) Pulse Ox O2 Delivery O2 Flow Rate FiO2 01/14/19 12:00 98.5 72 20 127/63 (84) 100 01/14/19 09:00 Nasal Cannula 2.0 01/14/19 08:21 69 124/71 01/14/19 08:00 97.8 71 20 123/63 (83) 100 01/14/19 04:00 97.6 69 18 124/71 (88) 99 01/14/19 00:00 98.0 71 20 118/68 (85) 98 01/13/19 21:00 Nasal Cannula 2.0 01/13/19 20:14 70 119/64 01/13/19 20:04 99 Nasal Cannula 2.0 28 01/13/19 20:04 Nasal Cannula 2.0 28 01/13/19 20:00 97.0 70 21 119/64 (82) 99 Intake and Output 01/13/19 01/14/19 19:00 07:00 Intake Total 420 ml 855 ml Output Total 350 ml 400 ml Balance 70 ml 455 ml Intake Oral 120 ml IV Total 300 ml 855 ml Output Urine Total 350 ml 400 ml Laboratory Tests Test 01/14/19 05:40 White Blood Count 6.8 K/UL (4.8-10.8) Red Blood Count 2.44 M/UL (4.20-5.40) L Hemoglobin 7.7 G/DL (12.0-16.0) L Hematocrit 24.7 % (37.0-47.0) L Mean Corpuscular Volume 101 FL (80-99) H Mean Corpuscular Hemoglobin 31.6 PG (27.0-31.0) H Mean Corpuscular Hemoglobin Concent 31.2 G/DL (32.0-36.0) L Red Cell Distribution Width 16.5 % (11.6-14.8) H Platelet Count 71 K/UL (150-450) L Mean Platelet Volume 10.9 FL (6.5-10.1) H Neutrophils (%) (Auto) % (45.0-75.0) Lymphocytes (%) (Auto) % (20.0-45.0) Monocytes (%) (Auto) % (1.0-10.0) Eosinophils (%) (Auto) % (0.0-3.0) Basophils (%) (Auto) % (0.0-2.0) Differential Total Cells Counted 100 Neutrophils % (Manual) 89 % (45-75) H Lymphocytes % (Manual) 5 % (20-45) L Monocytes % (Manual) 6 % (1-10) Eosinophils % (Manual) 0 % (0-3) Basophils % (Manual) 0 % (0-2) Band Neutrophils 0 % (0-8) Platelet Estimate Decreased L Platelet Morphology Giant Platelets Occasional Hypochromasia 1+ Anisocytosis 1+ Macrocytosis 1+ Sodium Level 139 MMOL/L (136-145) Potassium Level 3.6 MMOL/L (3.5-5.1) Chloride Level 108 MMOL/L (98-107) H Carbon Dioxide Level 24 MMOL/L (21-32) Anion Gap 7 mmol/L (5-15) Blood Urea Nitrogen 21 mg/dL (7-18) H Creatinine 1.4 MG/DL (0.55-1.30) H Estimat Glomerular Filtration Rate mL/min (>60) Glucose Level 112 MG/DL (74-106) H Calcium Level 9.1 MG/DL (8.5-10.1) Objective HEAD AND NECK: Mild JVD.NG tube in LUNGS: Decreased breath sounds. CARDIOVASCULAR: Irregular S1 and S2 with no gallop. Defibrillator in left subclavian. ABDOMEN: Soft. EXTREMITIES: No pitting edema. Gabe Hi MD Jan 14, 2019 17:29
--- NOTE | 2019-01-14 19:27 | NUR ---
HAND-OFF: Report given to Jeffrey. NG tube observed to be taken out.
[2019-01-14 20:00] VITALS: BP 136/55
--- NOTE | 2019-01-14 20:48 | General Progress Note ---
Assessment/Plan Assessment/Plan Assessment/Plan: # Severe Pancytopenia -- multiple etiologies could be related to underlying liver disease, medication-induced, infection versus viral syndrome, ID with abx now --> peripheral smear has been ordered and does not show significant abnormalities, however concerning Ca++ elevated --> SPEP is negative for bands, upep pending --> Continue to monitor for improvement, trend cbc --> Hep panel and HIV are both negative --> US abd ordered to r/o cirrhosis and hepatosplenomegaly does not show it --> consider other causes, infections that could contribute --> reverse isolation if ANC is <2000 --> Give neupogen if ANC <1000 --> Transfuse if hgb <7, with 1 unit prbc --> consider bone marrow biopsy if no other causes are found, will dw pathologist # Coagulation defect, unspecified (D68.9) aka coagulopathy, multifactorial usually related to poor PO intake versus medications, versus hepatitis v cirrhosis --> administer Vitamin K if patient is bleeding or FFP if the INR is >10 --> hold off on ffp unless active procedure/bleeding, first begin with vit K 10 --> mixing study as needed # Severe Sepsis woth likely hcap --> on abx as per ID team # Acute metabolic encephalopathy superimposed on severe dementia --> on IV antibiotics to vanco and meropenem --> check blood cultures, serial lactate and PCT # Hypernatremia --> d5w as per Nephrology consulted # Chronic sCHF s/p AICD --> off anticoagulation, reviewed recs of Dr. Hi # Atrial fibrillation The timing of this note does not necessarily reflect the time of the patient was seen. Greatly appreciate consultation! Subjective Constitutional: Denies: no symptoms, chills, diaphoresis, fever, malaise, weakness, other HEENT: Denies: no symptoms, eye pain, blurred vision, tearing, double vision, ear pain, ear discharge, nose pain, nose congestion, throat pain, throat swelling, mouth pain, mouth swelling, other Cardiovascular: Denies: no symptoms, chest pain, edema, irregular heart rate, lightheadedness, palpitations, syncope, other Respiratory: Denies: no symptoms, cough, orthopnea, shortness of breath, SOB with excertion, SOB at rest, sputum, stridor, wheezing, other Gastrointestinal/Abdominal: Denies: no symptoms, abdomen distended, abdominal pain, black stools, tarry stools, blood in stool, constipated, diarrhea, difficulty swallowing, nausea, poor appetite, poor fluid intake, rectal bleeding , vomiting, other Genitourinary: Denies: no symptoms, burning, discharge, frequency, flank pain, hematuria, incontinence, pain, urgency, other Neurologic/Psychiatric: Denies: no symptoms, anxiety, depressed, emotional problems, headache, numbness, paresthesia, pre-existing deficit, seizure, tingling, tremors, weakness, other Endocrine: Denies: no symptoms, excessive sweating, flushing, intolerance to cold, intolerance to heat, increased hunger, increased thirst, increased urine, unexplained weight gain, unexplained weight loss, other Hematologic/Lymphatic: Denies: no symptoms, anemia, easy bleeding, easy bruising, other Allergies: Coded Allergies: No Known Allergies (Unverified , 01/06/19) Subjective 01/08: pending lab workup, us of the abd pending, spep and dic panel pending 01/10: Seen by bedside, remains lethargic, no acute distress, plt remains low at 46 01/11: resting in bed, no acute distress, plt trending down 38 01/12: awake, comfortable, no acute distress noted, plt trending up 01/13: seen by bedside, awake, comfortable, no acute distress. 01/14: NG tube insertion, Pt is lethargic, plt trending up, hgb 7.7 Objective Last 24 Hour Vital Signs Date Time Temp Pulse Resp B/P (MAP) Pulse Ox O2 Delivery O2 Flow Rate FiO2 01/14/19 16:00 98.1 70 19 118/64 (82) 99 01/14/19 12:00 98.5 72 20 127/63 (84) 100 01/14/19 09:00 Nasal Cannula 2.0 01/14/19 08:21 69 124/71 01/14/19 08:00 97.8 71 20 123/63 (83) 100 01/14/19 04:00 97.6 69 18 124/71 (88) 99 01/14/19 00:00 98.0 71 20 118/68 (85) 98 01/13/19 21:00 Nasal Cannula 2.0 Intake and Output 01/13/19 01/14/19 19:00 07:00 Intake Total 420 ml 855 ml Output Total 350 ml 400 ml Balance 70 ml 455 ml Intake Oral 120 ml IV Total 300 ml 855 ml Output Urine Total 350 ml 400 ml Laboratory Tests 01/14/19 05:40: White Blood Count 6.8, Red Blood Count 2.44L, Hemoglobin 7.7L, Hematocrit 24.7L , Mean Corpuscular Volume 101H, Mean Corpuscular Hemoglobin 31.6H, Mean Corpuscular Hemoglobin Concent 31.2L, Red Cell Distribution Width 16.5H, Platelet Count 71L, Mean Platelet Volume 10.9H, Neutrophils (%) (Auto) , Lymphocytes (%) (Auto) , Monocytes (%) (Auto) , Eosinophils (%) (Auto) , Basophils (%) (Auto) , Differential Total Cells Counted 100, Neutrophils % ( Manual) 89H, Lymphocytes % (Manual) 5L, Monocytes % (Manual) 6, Eosinophils % ( Manual) 0, Basophils % (Manual) 0, Band Neutrophils 0, Platelet Estimate DecreasedL, Platelet Morphology , Giant Platelets Occasional, Hypochromasia 1+, Anisocytosis 1+, Macrocytosis 1+, Sodium Level 139, Potassium Level 3.6, Chloride Level 108H, Carbon Dioxide Level 24, Anion Gap 7, Blood Urea Nitrogen 21H, Creatinine 1.4H, Estimat Glomerular Filtration Rate , Glucose Level 112H, Calcium Level 9.1 Height (Feet): 5 Height (Inches): 2.00 Weight (Pounds): 200 Objective PE General Appearance: lethargic ++2l NC Lines, tubes and drains: peripheral HEENT: normocephalic, atraumatic. NG tube insertion Neck: normal alignment Respiratory/Chest: lungs clear, normal breath sounds Cardiovascular/Chest: normal peripheral pulses, normal rate Abdomen: non tender, soft, no organomegaly Extremities: non-tender, normal inspection : Blane Peralta MD Jan 14, 2019 20:48
--- NOTE | 2019-01-14 20:50 | NUR ---
NURSE NOTES: Patient in bed, confused, nonverbal. Skin is warm, edema in upper and lower extremities. Noted with right upper arm picc line, dressing is intact. NOted with pendleton catheter, patent. Right arm dressing, skin tear, intact. Sacral dressing, intact. Naso gastric tube, removed by patient. Will not reinsert per family. Will resume previous diet. charge nurse made aware. call light is at bedside. Will continue plan of care.
[2019-01-14] MEDS: Dyna-Hex 2% Top Sol 2oz TOPIC SCH (21:02)
[2019-01-15] VITALS: BP 118/75
[2019-01-15 04:00] VITALS: BP 135/65
[2019-01-15] MEDS ORDERED: ceFAZolin 1gm/50ml Premix 50 ML IV ONE (06:00)
--- NOTE | 2019-01-15 07:20 | NUR ---
HAND-OFF: Report given to Lisa Lewis.
--- NOTE | 2019-01-15 07:39 | NUR ---
NURSE NOTES: Patient received in stable condition, sleeping in bed. Breathing unlabored with nasal cannula 2L/min. No s/s of pain at this time. PICC line on right upper arm patent and intact. HOB elevated for aspiration precautions. Bed locked in low position, call light placed within reach. Will continue to monitor.
[2019-01-15 08:00] VITALS: BP 129/71
[2019-01-15] MEDS: Pantoprazole Inj IVP SCH (08:24)
--- NOTE | 2019-01-15 10:10 | NUR ---
ST NOTE: SWALLOW STATUS FOLLOWED UP PT'S CONDITIONS. PT SEEN AT BEDSIDE IN AM. PT NOT AWAKE. PER RNJERRY, ATTEMPTED TO NGT YESTERDAY, HOWEVER, PT PULLED IT OUT. PER RN, PT'S EXPRESSED THAT IF PT PULLED OUT THE NGT, DO NOT RE-INSERT. CURRENTLY, PT WAS PUT BACK THE LIQUIFIED PUREED, LIKE NECTAR THICK SOUP CONSISTENCY WITH NECTAR THICK LIQUIDS. PER RN, WAS ABLE TO FEED PT EARLY THIS AM. PT TOOK A BOWL WITHOUT OVERT S/S OF ASPIRATION. DUE TO PT'S FAMILY WISH(NO ARTIFICIAL FEEDING-NGT OR G-TUBE), PO SHOULD BE GIVEN FOR QUALITY OF LIFE(COMFORT FEEDING), CONTINUE LIQUIFIED PUREED, LIKE NECTAR THICK SOUP CONSISTENCY WITH NECTAR THICK LIQUIDS DIET WITH 1TO1 FEEDING. CONSIDER PALLIATIVE CARE. EDUCATED THE STAFF RE: ASPIRATION PRECAUTIONS WILL D/C PT.
--- NOTE | 2019-01-15 11:16 | General Progress Note ---
Assessment/Plan Assessment/Plan #Severe Sepsis #MSSA pneumonia, possibly due to aspiration #E. coli UTI #Acute metabolic encephalopathy superimposed on severe dementia -continue antibiotics per ID -aspiration precautions -place NGT with wrist restraints -family will consider PEG placement #Hypernatremia -resolved -monitor BMP -Nephrology following #Chronic sCHF s/p AICD #Atrial fibrillation #HTN #CAD -HTN controlled -Continue Coreg -Cardiology eval appreciated VTE PPx Heparin SC DNR/DNI Subjective Date patient seen: Jan 15, 2019 Time patient seen: 11:00 ROS Limited/Unobtainable: Yes Allergies: Coded Allergies: No Known Allergies (Unverified , 01/06/19) Subjective Medicine follow up for severe sepsis, suspected HCAP, hypernatremia, acute metabolic encephalopathy Mostly lethargic, pulled out NGT tube yesterday Spoke with her Jasper, he is ok with re-inserting NG tube if necessary Objective Last 24 Hour Vital Signs Date Time Temp Pulse Resp B/P (MAP) Pulse Ox O2 Delivery O2 Flow Rate FiO2 01/15/19 09:00 Nasal Cannula 2.0 01/15/19 08:52 Nasal Cannula 2.0 28 01/15/19 08:52 99 Nasal Cannula 2.0 28 01/15/19 08:24 74 135/65 01/15/19 08:00 98.6 81 19 129/71 (90) 96 01/15/19 04:00 97.3 74 18 135/65 (88) 99 01/15/19 00:00 98.6 72 17 118/75 (89) 100 01/14/19 21:02 72 136/55 01/14/19 21:00 Nasal Cannula 2.0 01/14/19 20:00 98.4 72 18 136/55 (82) 100 01/14/19 16:00 98.1 70 19 118/64 (82) 99 01/14/19 12:00 98.5 72 20 127/63 (84) 100 Intake and Output 01/14/19 01/15/19 19:00 07:00 Intake Total 15 ml 750 ml Output Total 340 ml 350 ml Balance -325 ml 400 ml IV Total 750 ml Tube Feeding 15 ml Output Urine Total 340 ml 350 ml Height (Feet): 5 Height (Inches): 2.00 Weight (Pounds): 200 General Appearance: confused Neck: normal alignment, supple Cardiovascular: normal rate, regular rhythm Respiratory/Chest: lungs clear, normal breath sounds Abdomen: non tender, soft Rome Diamond MD Jan 15, 2019 11:16
[2019-01-15 12:00] VITALS: BP 146/70
--- NOTE | 2019-01-15 15:20 | Infectious Diseases Prog Note ---
Assessment/Plan Assessment/Plan ASSESSMENT AND PLAN: 1. e.coli uti, staph aureus pna/MSSA, possible aspiration pna with jennifer-hilar infiltrate, sepsis, sirs, leukopenia, hypothermia, ams/lethargy - ancef and flagyl x 5 days to finish full abx treatment course - poor oral intake - f/u on labs - chest x-ray improved and now negative 2. The patient has severe hypernatremia. 3. Dehydration. 4. Acute kidney injury. 5. Elevated creatinine. 6. Intravenous fluids. 7. Hypothermia. 8. Pancytopenia. Workup per Hematology/Oncology. 9. Hypertension. 10. Coronary artery disease. 11. Congestive heart failure. 12. Automatic implanted cardioverter. 13. Subdural hematoma. 14. Severe dementia. 15. Aspiration risk. 16. No known drug allergies. 17. Social history is negative. 18. Family history is noncontributory. 19. MAR was noted. 20. Case was discussed with RN. 21. Encephalopathy. 22. Skin care protocol. 23. The patient is DNR/DNI. 24. aspiration precautions 25. mrsa colonization 26. wound care per protocol - sacral wound noted and not acutely infected Subjective Constitutional: Denies: fever HEENT: Denies: congestion Respiratory: Denies: shortness of breath Cardiovascular: Denies: chest pain Gastrointestinal/Abdominal: Denies: nausea, vomiting Genitourinary: Reports: other - + pendleton - urine slt cloudy Neurologic: Reports: weakness, other Psychiatric: Denies: depression Skin: Denies: rash Hematologic: Denies: bleeding Musculoskeletal: Denies: pain Allergies: Coded Allergies: No Known Allergies (Unverified , 01/06/19) Objective Vital Signs Last 24 Hour Vital Signs Date Time Temp Pulse Resp B/P (MAP) Pulse Ox O2 Delivery O2 Flow Rate FiO2 01/15/19 09:00 Nasal Cannula 2.0 01/15/19 08:52 Nasal Cannula 2.0 28 01/15/19 08:52 99 Nasal Cannula 2.0 28 01/15/19 08:24 74 135/65 01/15/19 08:00 98.6 81 19 129/71 (90) 96 01/15/19 04:00 97.3 74 18 135/65 (88) 99 01/15/19 00:00 98.6 72 17 118/75 (89) 100 01/14/19 21:02 72 136/55 01/14/19 21:00 Nasal Cannula 2.0 01/14/19 20:00 98.4 72 18 136/55 (82) 100 01/14/19 16:00 98.1 70 19 118/64 (82) 99 Height (Feet): 5 Height (Inches): 2.00 Weight (Pounds): 200 General Appearance: no acute distress HEENT: normocephalic, atraumatic, anicteric, mucous membranes moist Respiratory/Chest: lungs clear, normal breath sounds, no respiratory distress Cardiovascular: normal rate, regular rhythm, no gallop/murmur, no JVD Abdomen: normal bowel sounds, soft, non tender, no organomegaly, non distended Genitourinary: other - + pendleton - urine slt cloudy Extremities: no cyanosis Skin: no rash Neurologic/Psychiatric: motor weakness, other - lethargic and weak Lymphatic: no neck adenopathy Musculoskeletal: no effusion Objective 01/06 - chest x-ray - Comparison: none Findings: There is a left chest pacemaker, with an orphaned lead as well as epicardial leads. Surgical clips are seen in the left axilla. The heart is borderline enlarged. The lungs demonstrate possible hazy infiltrate in left perihilar region Impression: Possible left perihilar infiltrate Borderline cardiomegaly Other findings as noted 01/12 - chest x-ray - Comparison: 01/10/2019 Findings: The heart is enlarged. There is patchy parenchymal opacity in the left suprahilar region which is not evident previously. There is equivocal minimal interstitial congestive change. The lungs and pleural spaces are otherwise grossly clear, although a pacemaker obscures much of the left lung. Surgical clips are seen in the left chest wall Impression: New or increased patchy left suprahilar opacity Equivocal minimal interstitial congestion Chest x-ray - 01/14/19 - Findings: Again demonstrated is a left chest AICD with epicardial leads. Surgical clips are seen in the left axilla. The heart is enlarged. The lungs and pleural spaces are clear. There is a right arm PICC Impression: No acute process Cardiomegaly Other findings as noted Microbiology Date/Time Source Procedure Growth Status 01/06/19 17:25 Blood Blood Culture - Final NO GROWTH AFTER 5 DAYS Complete 01/08/19 07:00 Sputum Induced Gram Stain - Final Complete 01/08/19 07:00 Sputum Culture - Final Staphylococcus Aureus Complete 01/07/19 11:30 Urine,Clean Catch Urine Culture - Final Escherichia Coli Complete 01/06/19 18:10 Rectum VRE Culture - Final NO VANCOMYCIN RESISTANT ENTEROCOCCUS ... Complete 01/06/19 18:10 Rectum - Final NO CARBAPENEM-RESISTANT ENTEROBACTERI... Complete Labs Test 01/14/19 05:40 White Blood Count 6.8 K/UL (4.8-10.8) Red Blood Count 2.44 M/UL (4.20-5.40) Hemoglobin 7.7 G/DL (12.0-16.0) Hematocrit 24.7 % (37.0-47.0) Mean Corpuscular Volume 101 FL (80-99) Mean Corpuscular Hemoglobin 31.6 PG (27.0-31.0) Mean Corpuscular Hemoglobin Concent 31.2 G/DL (32.0-36.0) Red Cell Distribution Width 16.5 % (11.6-14.8) Platelet Count 71 K/UL (150-450) Mean Platelet Volume 10.9 FL (6.5-10.1) Neutrophils (%) (Auto) % (45.0-75.0) Lymphocytes (%) (Auto) % (20.0-45.0) Monocytes (%) (Auto) % (1.0-10.0) Eosinophils (%) (Auto) % (0.0-3.0) Basophils (%) (Auto) % (0.0-2.0) Differential Total Cells Counted 100 Neutrophils % (Manual) 89 % (45-75) Lymphocytes % (Manual) 5 % (20-45) Monocytes % (Manual) 6 % (1-10) Eosinophils % (Manual) 0 % (0-3) Basophils % (Manual) 0 % (0-2) Band Neutrophils 0 % (0-8) Platelet Estimate Decreased Platelet Morphology Giant Platelets Occasional Hypochromasia 1+ Anisocytosis 1+ Macrocytosis 1+ Sodium Level 139 MMOL/L (136-145) Potassium Level 3.6 MMOL/L (3.5-5.1) Chloride Level 108 MMOL/L (98-107) Carbon Dioxide Level 24 MMOL/L (21-32) Anion Gap 7 mmol/L (5-15) Blood Urea Nitrogen 21 mg/dL (7-18) Creatinine 1.4 MG/DL (0.55-1.30) Estimat Glomerular Filtration Rate mL/min (>60) Glucose Level 112 MG/DL (74-106) Calcium Level 9.1 MG/DL (8.5-10.1) Current Medications Medications (Trade) Dose Ordered Sig/Nuria Route PRN Reason Start Time Stop Time Status Last Admin Dose Admin Carvedilol (Coreg) 3.125 mg EVERY 12 HOURS ORAL 01/13/19 21:00 02/12/19 20:59 01/15/19 08:24 Chlorhexidine Gluconate (Kaylee-Hex 2%) 1 applic DAILY@2000 TOPIC 01/13/19 20:00 02/12/19 19:59 01/14/19 21:02 Dextrose 1,000 ml @ 100 mls/hr Q10H IV 01/13/19 04:00 02/05/19 08:04 01/15/19 13:47 Dextrose (Dextrose 50%) 25 ml Q30M PRN IV Hypoglycemia 01/13/19 04:00 02/05/19 18:59 Dextrose (Dextrose 50%) 50 ml Q30M PRN IV Hypoglycemia 01/13/19 04:00 02/05/19 18:59 Metronidazole 100 ml @ 100 mls/hr Q8HR IVPB 01/13/19 06:00 01/18/19 21:59 01/15/19 13:47 Ninfa Vences MD Jan 15, 2019 15:20
[2019-01-15 16:00] VITALS: BP 137/68
--- NOTE | 2019-01-15 16:09 | Cardiac Electrophysiology PN ---
Assessment/Plan Assessment/Plan 1. Atrial fibrillation. On Coreg and off anticoagulation for thrombocytopenia 2. Status post [employer] biventricular ICD. No shocks 3. Congestive heart failure. EF 35%. 4. Severe hypernatremia and renal failure. On IV fluids per Dr. Wells. 5. History of hypertension. On Coreg 6. MRSA PNA on Abx 7. Altered mental status. 8. Thrombocytopenia. 9. Hx of CVA with aphasia Hospice care Subjective Subjective No significant change. On NMB Objective Last 24 Hour Vital Signs Date Time Temp Pulse Resp B/P (MAP) Pulse Ox O2 Delivery O2 Flow Rate FiO2 01/15/19 09:00 Nasal Cannula 2.0 01/15/19 08:52 Nasal Cannula 2.0 28 01/15/19 08:52 99 Nasal Cannula 2.0 28 01/15/19 08:24 74 135/65 01/15/19 08:00 98.6 81 19 129/71 (90) 96 01/15/19 04:00 97.3 74 18 135/65 (88) 99 01/15/19 00:00 98.6 72 17 118/75 (89) 100 01/14/19 21:02 72 136/55 01/14/19 21:00 Nasal Cannula 2.0 01/14/19 20:00 98.4 72 18 136/55 (82) 100 Intake and Output 01/14/19 01/15/19 19:00 07:00 Intake Total 15 ml 750 ml Output Total 340 ml 350 ml Balance -325 ml 400 ml IV Total 750 ml Tube Feeding 15 ml Output Urine Total 340 ml 350 ml Objective HEAD AND NECK: Mild JVD.NG tube in LUNGS: Decreased breath sounds. CARDIOVASCULAR: Irregular S1 and S2 with no gallop. Defibrillator in left subclavian. ABDOMEN: Soft. EXTREMITIES: No pitting edema. Gabe Hi MD Jan 15, 2019 16:09
[2019-01-15] MEDS: ceFAZolin sod 1 GM in D5W 55 ML IVPB SCH ×2 (16:41→23:22)
--- NOTE | 2019-01-15 18:39 | Nephrology Progress Note ---
Assessment/Plan Problem List: (1) Acute renal failure Assessment: resolving (2) Dehydration (3) Hypernatremia (4) Anemia Assessment acute Renal Failure Cr lowering Sepsis / UTI / Pneumonia Acute metabolic Encephalopathy Hypernatremia AICD AT FIB CAD HTN presents with Low BP Anemia DNR DNI Plan Free water administration watch for chf pendleton hold mind altering meds protonix IV DC Motrin !!! Subjective ROS Limited/Unobtainable: No Constitutional: Reports: malaise, weakness Objective Objective Last 24 Hour Vital Signs Date Time Temp Pulse Resp B/P (MAP) Pulse Ox O2 Delivery O2 Flow Rate FiO2 01/15/19 16:00 98.4 76 20 137/68 (91) 98 01/15/19 12:00 98.4 72 18 146/70 (95) 100 01/15/19 09:00 Nasal Cannula 2.0 01/15/19 08:52 Nasal Cannula 2.0 28 01/15/19 08:52 99 Nasal Cannula 2.0 28 01/15/19 08:24 74 135/65 01/15/19 08:00 98.6 81 19 129/71 (90) 96 01/15/19 04:00 97.3 74 18 135/65 (88) 99 01/15/19 00:00 98.6 72 17 118/75 (89) 100 01/14/19 21:02 72 136/55 01/14/19 21:00 Nasal Cannula 2.0 01/14/19 20:00 98.4 72 18 136/55 (82) 100 Intake and Output 01/14/19 01/15/19 19:00 07:00 Intake Total 15 ml 750 ml Output Total 340 ml 350 ml Balance -325 ml 400 ml IV Total 750 ml Tube Feeding 15 ml Output Urine Total 340 ml 350 ml Height (Feet): 5 Height (Inches): 2.00 Weight (Pounds): 200 Cardiovascular: normal rate Respiratory/Chest: decreased breath sounds Abdomen: distended Objective no change Noe Wells MD Jan 15, 2019 18:39
--- NOTE | 2019-01-15 18:43 | NUR ---
CASE MANAGEMENT: REVIEW SI: DEHYDRATION . SEPSIS T 98.4 HR 72 RR 18 BP 146/70 SAT 100% NC/2L IS: CEFAZOLIN IV Q8HR COREG PO Q12HR FLAGYL IV Q8KHR D5W IVF @ 100ML/HR MED/SURG STATUS DCP: PATIENT IS FROM [facility]
--- NOTE | 2019-01-15 19:19 | NUR ---
HAND-OFF: Report given to Jeffrey CRUM.
--- NOTE | 2019-01-15 19:40 | NUR ---
NURSE NOTES: Patient in bed, asleep, arousable to touch. Kept clean and comfortable. Skin is warm, noted with right forearm dressing, and sacral dressing. INtact, and dry. On special mattress. Picc line noted on the right upper arm, intact, dressing is clean and dry. IV fluid is infusing as ordered. Abdomen is soft and non distended. Respiration is even and unlabored. No s/s of pain or discomfort noted. Call light is at bedside. Will continue plan of care.
[2019-01-15 19:51] VITALS: BP 99/62
[2019-01-15] MEDS: Dyna-Hex 2% Top Sol 2oz TOPIC SCH (21:06)
--- NOTE | 2019-01-15 23:49 | General Progress Note ---
Assessment/Plan Assessment/Plan Assessment/Plan: # Severe Pancytopenia -- multiple etiologies could be related to underlying liver disease, medication-induced, infection versus viral syndrome, ID with abx now --> peripheral smear has been ordered and does not show significant abnormalities, however concerning Ca++ elevated --> SPEP is negative for bands --> Continue to monitor for improvement, trend cbc --> Hep panel and HIV are both negative --> US abd ordered to r/o cirrhosis and hepatosplenomegaly does not show it --> consider other causes, infections that could contribute --> reverse isolation if ANC is <2000 --> Give neupogen if ANC <1000 --> Transfuse if hgb <7, with 1 unit prbc --> consider bone marrow biopsy if no other causes are found, will dw pathologist # Coagulation defect, unspecified (D68.9) aka coagulopathy, multifactorial usually related to poor PO intake versus medications, versus hepatitis v cirrhosis --> administer Vitamin K if patient is bleeding or FFP if the INR is >10 --> hold off on ffp unless active procedure/bleeding, first begin with vit K 10 --> mixing study as needed # Severe Sepsis woth likely hcap --> on abx as per ID team # Acute metabolic encephalopathy superimposed on severe dementia --> on IV antibiotics to vanco and meropenem --> check blood cultures, serial lactate and PCT # Hypernatremia --> d5w as per Nephrology consulted # Chronic sCHF s/p AICD --> off anticoagulation, reviewed recs of Dr. Hi # Atrial fibrillation The timing of this note does not necessarily reflect the time of the patient was seen. Greatly appreciate consultation! Subjective Constitutional: Denies: no symptoms, chills, diaphoresis, fever, malaise, weakness, other HEENT: Denies: no symptoms, eye pain, blurred vision, tearing, double vision, ear pain, ear discharge, nose pain, nose congestion, throat pain, throat swelling, mouth pain, mouth swelling, other Cardiovascular: Denies: no symptoms, chest pain, edema, irregular heart rate, lightheadedness, palpitations, syncope, other Respiratory: Denies: no symptoms, cough, orthopnea, shortness of breath, SOB with excertion, SOB at rest, sputum, stridor, wheezing, other Gastrointestinal/Abdominal: Denies: no symptoms, abdomen distended, abdominal pain, black stools, tarry stools, blood in stool, constipated, diarrhea, difficulty swallowing, nausea, poor appetite, poor fluid intake, rectal bleeding , vomiting, other Genitourinary: Denies: no symptoms, burning, discharge, frequency, flank pain, hematuria, incontinence, pain, urgency, other Neurologic/Psychiatric: Denies: no symptoms, anxiety, depressed, emotional problems, headache, numbness, paresthesia, pre-existing deficit, seizure, tingling, tremors, weakness, other Endocrine: Denies: no symptoms, excessive sweating, flushing, intolerance to cold, intolerance to heat, increased hunger, increased thirst, increased urine, unexplained weight gain, unexplained weight loss, other Hematologic/Lymphatic: Denies: no symptoms, anemia, easy bleeding, easy bruising, other Allergies: Coded Allergies: No Known Allergies (Unverified , 01/06/19) Subjective 01/08: pending lab workup, us of the abd pending, spep and dic panel pending 01/10: Seen by bedside, remains lethargic, no acute distress, plt remains low at 46 01/11: resting in bed, no acute distress, plt trending down 38 01/12: awake, comfortable, no acute distress noted, plt trending up 01/13: seen by bedside, awake, comfortable, no acute distress. 01/14: NG tube insertion, Pt is lethargic, plt trending up, hgb 7.7 01/15: lethargic, on 2L NC, no events, pending cbc today Objective Last 24 Hour Vital Signs Date Time Temp Pulse Resp B/P (MAP) Pulse Ox O2 Delivery O2 Flow Rate FiO2 01/15/19 21:00 Nasal Cannula 2.0 01/15/19 21:00 82 99/62 01/15/19 19:51 99.7 82 20 99/62 (74) 98 01/15/19 16:00 98.4 76 20 137/68 (91) 98 01/15/19 12:00 98.4 72 18 146/70 (95) 100 01/15/19 09:00 Nasal Cannula 2.0 01/15/19 08:52 Nasal Cannula 2.0 28 01/15/19 08:52 99 Nasal Cannula 2.0 28 01/15/19 08:24 74 135/65 01/15/19 08:00 98.6 81 19 129/71 (90) 96 01/15/19 04:00 97.3 74 18 135/65 (88) 99 01/15/19 00:00 98.6 72 17 118/75 (89) 100 Intake and Output 01/14/19 01/15/19 19:00 07:00 Intake Total 15 ml 750 ml Output Total 340 ml 350 ml Balance -325 ml 400 ml IV Total 750 ml Tube Feeding 15 ml Output Urine Total 340 ml 350 ml Height (Feet): 5 Height (Inches): 2.00 Weight (Pounds): 200 Objective PE General Appearance: lethargic ++2l NC Lines, tubes and drains: peripheral HEENT: normocephalic, atraumatic. NG tube insertion Neck: normal alignment Respiratory/Chest: lungs clear, normal breath sounds Cardiovascular/Chest: normal peripheral pulses, normal rate Abdomen: non tender, soft, no organomegaly Extremities: non-tender, normal inspection : Blane Peralta MD Jan 15, 2019 23:49
[2019-01-16] VITALS: BP 129/73
[2019-01-16 04:00] VITALS: BP 126/59
--- NOTE | 2019-01-16 04:32 | NUR ---
NURSE NOTES: Dressings changed, pictures taken. Right forearm skin tear, redness, drainage noted.
--- NOTE | 2019-01-16 07:13 | NUR ---
HAND-OFF: Report given to RADAMES Sloan.
--- NOTE | 2019-01-16 07:24 | NUR ---
NURSE NOTES: Patient non-verbal, on nasal cannula, no sign of shortness of breath, or distress; no sign of chest pain; pendleton in place drains yellow urine; patient on sp mattress; PICC line on R-upper arm, dressing dry and intact, fluid is running; side rails up x2, breaks engaged and bed at lowest position; Will keep on monitoring.
[2019-01-16 08:00] VITALS: BP 122/63
[2019-01-16 08:09] LABS: HEMATOCRIT 23.9 % (37.0-47.0); HEMOGLOBIN 7.7 G/DL (12.0-16.0); MEAN CORPUSCULAR VOLUME 100 FL (80-99); PLATELET COUNT 114 K/UL (150-450); RED BLOOD COUNT 2.39 M/UL (4.20-5.40); RED CELL DISTRIBUTION WIDTH 16.6 % (11.6-14.8); WHITE BLOOD COUNT 6.8 K/UL (4.8-10.8)
[2019-01-16 08:24] LABS: ANION GAP 8 mmol/L (5-15); BLOOD UREA NITROGEN 16 mg/dL (7-18); CARBON DIOXIDE 23 MMOL/L (21-32); CHLORIDE 103 MMOL/L (98-107); CREATININE 1.3 MG/DL (0.55-1.30); POTASSIUM 3.2 MMOL/L (3.5-5.1); SODIUM 134 MMOL/L (136-145)
[2019-01-16 08:45] LABS: ALANINE AMINOTRANSFERASE < 6 U/L (12-78); ALBUMIN 1.7 G/DL (3.4-5.0); ALKALINE PHOSPHATASE 87 U/L (46-116); ASPARTATE AMINO TRANSFERASE 19 U/L (15-37); BILIRUBIN,DIRECT 0.2 MG/DL (0.0-0.3); BILIRUBIN,TOTAL 0.6 MG/DL (0.2-1.0); GAMMA GLUTAMYL TRANSPEPTIDASE 14 U/L (5-85); PHOSPHORUS 1.9 MG/DL (2.5-4.9)
--- NOTE | 2019-01-16 09:20 | NUR ---
NURSE NOTES: Patient's Na 134 and K 3.2; MD Alvarado notified. Waiting for order.
[2019-01-16] MEDS: ceFAZolin sod 1 GM in D5W 55 ML IVPB SCH ×3 (11:09→23:34)
[2019-01-16 12:00] VITALS: BP 108/54
[2019-01-16 16:00] VITALS: BP 124/58
--- NOTE | 2019-01-16 16:50 | General Progress Note ---
Assessment/Plan Assessment/Plan #Severe Sepsis #MSSA pneumonia, possibly due to aspiration #E. coli UTI #Acute metabolic encephalopathy superimposed on severe dementia -continue antibiotics per ID -aspiration precautions -place NGT with wrist restraints -family will consider PEG placement #Hypernatremia -resolved -monitor BMP -Nephrology following #Chronic sCHF s/p AICD #Atrial fibrillation #HTN #CAD -HTN controlled -Continue Coreg -Cardiology eval appreciated VTE PPx Heparin SC DNR/DNI Subjective Date patient seen: Jan 16, 2019 Time patient seen: 09:55 ROS Limited/Unobtainable: No Allergies: Coded Allergies: No Known Allergies (Unverified , 01/06/19) Subjective No acute overnight events, no new complaints. Objective Last 24 Hour Vital Signs Date Time Temp Pulse Resp B/P (MAP) Pulse Ox O2 Delivery O2 Flow Rate FiO2 01/16/19 16:00 98.2 72 18 124/58 (80) 98 01/16/19 12:00 97.8 72 16 108/54 (72) 96 01/16/19 09:00 Nasal Cannula 2.0 01/16/19 08:25 74 122/63 01/16/19 08:00 97.8 74 19 122/63 (82) 98 01/16/19 07:14 97 Nasal Cannula 2.0 28 01/16/19 07:14 Nasal Cannula 2.0 28 01/16/19 04:00 97.7 70 18 126/59 (81) 97 01/16/19 00:00 98.5 74 18 129/73 (91) 96 01/15/19 21:00 Nasal Cannula 2.0 01/15/19 21:00 82 99/62 01/15/19 19:51 99.7 82 20 99/62 (74) 98 Intake and Output 01/15/19 01/16/19 19:00 07:00 Intake Total 100 ml 555 ml Output Total 600 ml 1500 ml Balance -500 ml -945 ml IV Total 100 ml 555 ml Output Urine Total 600 ml 1500 ml Laboratory Tests 01/16/19 05:00: White Blood Count 6.8, Red Blood Count 2.39L, Hemoglobin 7.7L, Hematocrit 23.9L , Mean Corpuscular Volume 100H, Mean Corpuscular Hemoglobin 32.2H, Mean Corpuscular Hemoglobin Concent 32.3, Red Cell Distribution Width 16.6H, Platelet Count 114L, Mean Platelet Volume 8.7, Neutrophils (%) (Auto) , Lymphocytes (%) (Auto) , Monocytes (%) (Auto) , Eosinophils (%) (Auto) , Basophils (%) (Auto) , Differential Total Cells Counted 100, Neutrophils % ( Manual) 86H, Lymphocytes % (Manual) 8L, Monocytes % (Manual) 6, Eosinophils % ( Manual) 0, Basophils % (Manual) 0, Band Neutrophils 0, Platelet Estimate DecreasedL, Platelet Morphology Normal, Hypochromasia 1+, Anisocytosis 1+, Macrocytosis 1+ 01/16/19 06:55: Sodium Level 134L, Potassium Level 3.2L, Chloride Level 103, Carbon Dioxide Level 23, Anion Gap 8, Blood Urea Nitrogen 16, Creatinine 1.3, Estimat Glomerular Filtration Rate , Glucose Level 129H, Calcium Level 9.0, Phosphorus Level 1.9L, Magnesium Level 1.9, Total Bilirubin 0.6, Direct Bilirubin 0.2, Gamma Glutamyl Transpeptidase 14, Aspartate Amino Transf (AST/SGOT) 19, Alanine Aminotransferase (ALT/SGPT) < 6L, Alkaline Phosphatase 87, Pro-B-Type Natriuretic Peptide 7287H, Total Protein 5.5L, Albumin 1.7L Height (Feet): 5 Height (Inches): 2.00 Weight (Pounds): 200 Objective General: alert, cooperative, no distress, appears stated age Head: normocephalic, without obvious abnormality, atraumatic Eyes: conjunctivae/corneas clear. PERRL, EOM's intact Throat: lips, mucosa, and tongue normal. MMM Neck: supple, symmetrical, trachea midline, and no JVD Lungs: clear to auscultation bilaterally Heart: regular rate and rhythm, S1, S2 normal, no murmur, click, rub or gallop Abdomen: soft, non-tender, non-distended, bowel sounds normal; no masses or organomegaly Extremities: extremities normal, atraumatic, no cyanosis or edema Pulses: 2+ and symmetric Skin: skin color, texture, turgor normal; no rashes or lesions Neurologic: grossly normal, no focal deficits Bear Herron MD Jan 16, 2019 16:50
--- NOTE | 2019-01-16 17:35 | Nephrology Progress Note ---
Assessment/Plan Problem List: (1) Acute renal failure Assessment: resolving (2) Dehydration (3) Hypernatremia (4) Anemia Assessment acute Renal Failure Cr lowering Sepsis / UTI / Pneumonia Acute metabolic Encephalopathy Hypernatremia AICD AT FIB CAD HTN presents with Low BP Anemia DNR DNI Plan k Phos IV down on IV fluids watch for chf pendleton hold mind altering meds protonix IV DC Motrin !!! Subjective ROS Limited/Unobtainable: No Constitutional: Reports: malaise Objective Objective Last 24 Hour Vital Signs Date Time Temp Pulse Resp B/P (MAP) Pulse Ox O2 Delivery O2 Flow Rate FiO2 01/16/19 16:00 98.2 72 18 124/58 (80) 98 01/16/19 12:00 97.8 72 16 108/54 (72) 96 01/16/19 09:00 Nasal Cannula 2.0 01/16/19 08:25 74 122/63 01/16/19 08:00 97.8 74 19 122/63 (82) 98 01/16/19 07:14 97 Nasal Cannula 2.0 28 01/16/19 07:14 Nasal Cannula 2.0 28 01/16/19 04:00 97.7 70 18 126/59 (81) 97 01/16/19 00:00 98.5 74 18 129/73 (91) 96 01/15/19 21:00 Nasal Cannula 2.0 01/15/19 21:00 82 99/62 01/15/19 19:51 99.7 82 20 99/62 (74) 98 Intake and Output 01/15/19 01/16/19 19:00 07:00 Intake Total 100 ml 555 ml Output Total 600 ml 1500 ml Balance -500 ml -945 ml IV Total 100 ml 555 ml Output Urine Total 600 ml 1500 ml Laboratory Tests 01/16/19 05:00: White Blood Count 6.8, Red Blood Count 2.39L, Hemoglobin 7.7L, Hematocrit 23.9L , Mean Corpuscular Volume 100H, Mean Corpuscular Hemoglobin 32.2H, Mean Corpuscular Hemoglobin Concent 32.3, Red Cell Distribution Width 16.6H, Platelet Count 114L, Mean Platelet Volume 8.7, Neutrophils (%) (Auto) , Lymphocytes (%) (Auto) , Monocytes (%) (Auto) , Eosinophils (%) (Auto) , Basophils (%) (Auto) , Differential Total Cells Counted 100, Neutrophils % ( Manual) 86H, Lymphocytes % (Manual) 8L, Monocytes % (Manual) 6, Eosinophils % ( Manual) 0, Basophils % (Manual) 0, Band Neutrophils 0, Platelet Estimate DecreasedL, Platelet Morphology Normal, Hypochromasia 1+, Anisocytosis 1+, Macrocytosis 1+ 01/16/19 06:55: Sodium Level 134L, Potassium Level 3.2L, Chloride Level 103, Carbon Dioxide Level 23, Anion Gap 8, Blood Urea Nitrogen 16, Creatinine 1.3, Estimat Glomerular Filtration Rate , Glucose Level 129H, Calcium Level 9.0, Phosphorus Level 1.9L, Magnesium Level 1.9, Total Bilirubin 0.6, Direct Bilirubin 0.2, Gamma Glutamyl Transpeptidase 14, Aspartate Amino Transf (AST/SGOT) 19, Alanine Aminotransferase (ALT/SGPT) < 6L, Alkaline Phosphatase 87, Pro-B-Type Natriuretic Peptide 7287H, Total Protein 5.5L, Albumin 1.7L Height (Feet): 5 Height (Inches): 2.00 Weight (Pounds): 200 General Appearance: no apparent distress Objective no change Noe Wells MD Jan 16, 2019 17:35
[2019-01-16] MEDS ORDERED: Potassium Phosphate 30 MM in NS 275 ML IV ONE (18:00)
--- NOTE | 2019-01-16 19:16 | NUR ---
HAND-OFF: Report given to RADAMES Warren.
--- NOTE | 2019-01-16 19:34 | NUR ---
NURSE NOTES: Patient in bed, awake, confused, verbal. Able to make simple needs. No s/s of pain or discomfort noted at this time. Respiration is even and unlabored. Skin is warm and dry to touch. Noted with sacral dressing, intact, dry. Noted with pendleton catheter, draining. Noted with right upper arm picc line, iv fluid is infusing as ordered. Noted with special mattress. Call light is at bedside. Will continue plan of care.
[2019-01-16 20:00] VITALS: BP 131/76
--- NOTE | 2019-01-16 20:09 | Cardiac Electrophysiology PN ---
Assessment/Plan Assessment/Plan 1. Atrial fibrillation. On Coreg and off anticoagulation for thrombocytopenia 2. Status post [employer] biventricular ICD. No shocks 3. Congestive heart failure. EF 35%. 4. Severe hypernatremia and renal failure. On IV fluids per Dr. Wells. 5. History of hypertension. On Coreg 6. MRSA PNA on Abx 7. Altered mental status. 8. Thrombocytopenia. 9. Hx of CVA with aphasia Subjective Subjective No significant change. DC planning Objective Last 24 Hour Vital Signs Date Time Temp Pulse Resp B/P (MAP) Pulse Ox O2 Delivery O2 Flow Rate FiO2 01/16/19 16:00 98.2 72 18 124/58 (80) 98 01/16/19 12:00 97.8 72 16 108/54 (72) 96 01/16/19 09:00 Nasal Cannula 2.0 01/16/19 08:25 74 122/63 01/16/19 08:00 97.8 74 19 122/63 (82) 98 01/16/19 07:14 97 Nasal Cannula 2.0 28 01/16/19 07:14 Nasal Cannula 2.0 28 01/16/19 04:00 97.7 70 18 126/59 (81) 97 01/16/19 00:00 98.5 74 18 129/73 (91) 96 01/15/19 21:00 Nasal Cannula 2.0 01/15/19 21:00 82 99/62 Intake and Output 01/15/19 01/16/19 19:00 07:00 Intake Total 100 ml 555 ml Output Total 600 ml 1500 ml Balance -500 ml -945 ml IV Total 100 ml 555 ml Output Urine Total 600 ml 1500 ml Laboratory Tests Test 01/16/19 05:00 01/16/19 06:55 White Blood Count 6.8 K/UL (4.8-10.8) Red Blood Count 2.39 M/UL (4.20-5.40) L Hemoglobin 7.7 G/DL (12.0-16.0) L Hematocrit 23.9 % (37.0-47.0) L Mean Corpuscular Volume 100 FL (80-99) H Mean Corpuscular Hemoglobin 32.2 PG (27.0-31.0) H Mean Corpuscular Hemoglobin Concent 32.3 G/DL (32.0-36.0) Red Cell Distribution Width 16.6 % (11.6-14.8) H Platelet Count 114 K/UL (150-450) L Mean Platelet Volume 8.7 FL (6.5-10.1) Neutrophils (%) (Auto) % (45.0-75.0) Lymphocytes (%) (Auto) % (20.0-45.0) Monocytes (%) (Auto) % (1.0-10.0) Eosinophils (%) (Auto) % (0.0-3.0) Basophils (%) (Auto) % (0.0-2.0) Differential Total Cells Counted 100 Neutrophils % (Manual) 86 % (45-75) H Lymphocytes % (Manual) 8 % (20-45) L Monocytes % (Manual) 6 % (1-10) Eosinophils % (Manual) 0 % (0-3) Basophils % (Manual) 0 % (0-2) Band Neutrophils 0 % (0-8) Platelet Estimate Decreased L Platelet Morphology Normal Hypochromasia 1+ Anisocytosis 1+ Macrocytosis 1+ Sodium Level 134 MMOL/L (136-145) L Potassium Level 3.2 MMOL/L (3.5-5.1) L Chloride Level 103 MMOL/L (98-107) Carbon Dioxide Level 23 MMOL/L (21-32) Anion Gap 8 mmol/L (5-15) Blood Urea Nitrogen 16 mg/dL (7-18) Creatinine 1.3 MG/DL (0.55-1.30) Estimat Glomerular Filtration Rate mL/min (>60) Glucose Level 129 MG/DL (74-106) H Calcium Level 9.0 MG/DL (8.5-10.1) Phosphorus Level 1.9 MG/DL (2.5-4.9) L Magnesium Level 1.9 MG/DL (1.8-2.4) Total Bilirubin 0.6 MG/DL (0.2-1.0) Direct Bilirubin 0.2 MG/DL (0.0-0.3) Gamma Glutamyl Transpeptidase 14 U/L (5-85) Aspartate Amino Transf (AST/SGOT) 19 U/L (15-37) Alanine Aminotransferase (ALT/SGPT) < 6 U/L (12-78) L Alkaline Phosphatase 87 U/L (46-116) Pro-B-Type Natriuretic Peptide 7287 pg/mL (0-125) H Total Protein 5.5 G/DL (6.4-8.2) L Albumin 1.7 G/DL (3.4-5.0) L Objective HEAD AND NECK: Mild JVD.NG tube in LUNGS: Decreased breath sounds. CARDIOVASCULAR: Irregular S1 and S2 with no gallop. Defibrillator in left subclavian. ABDOMEN: Soft. EXTREMITIES: No pitting edema. Gabe Hi MD Jan 16, 2019 20:09
[2019-01-16] MEDS: Dyna-Hex 2% Top Sol 2oz TOPIC SCH (20:41)
--- NOTE | 2019-01-16 21:36 | NUR ---
NURSE NOTES: Family was at bedside feeding the patient. Patient finished 40% of meal.
[2019-01-17] VITALS: BP 120/57
[2019-01-17 04:00] VITALS: BP 129/69
--- NOTE | 2019-01-17 07:19 | NUR ---
HAND-OFF: Report given to RADAMES Sloan.
--- NOTE | 2019-01-17 07:30 | NUR ---
NURSE NOTES: Patient is wake, at the bed side feeding her breakfast, patient is eating well; on nasal cannula, no sign of shortness of breath; no sign of distress; PICC line on R-Upper arm fluid running at 40cc; patient to SP mattress; pendleton in place, drains yellow urine; bed at low position, side rails up x2, breaks engaged. Will keep monitoring.
[2019-01-17 08:00] VITALS: BP 128/63
[2019-01-17] MEDS: ceFAZolin sod 1 GM in D5W 55 ML IVPB SCH ×3 (08:26→23:26)
--- NOTE | 2019-01-17 11:34 | General Progress Note ---
Assessment/Plan Assessment/Plan Assessment/Plan: # Severe Pancytopenia -- multiple etiologies could be related to underlying liver disease, medication-induced, infection versus viral syndrome, ID with abx now --> peripheral smear has been ordered and does not show significant abnormalities, however concerning Ca++ elevated --> SPEP is negative for bands --> Continue to monitor for improvement, trend cbc --> Hep panel and HIV are both negative --> US abd ordered to r/o cirrhosis and hepatosplenomegaly does not show it --> consider other causes, infections that could contribute --> reverse isolation if ANC is <2000 --> Give neupogen if ANC <1000 --> Transfuse if hgb <7, with 1 unit prbc --> consider bone marrow biopsy in future, since uptrending plts, can consider as outpatient # Coagulation defect, unspecified (D68.9) aka coagulopathy, multifactorial usually related to poor PO intake versus medications, versus hepatitis v cirrhosis --> administer Vitamin K if patient is bleeding or FFP if the INR is >10 --> hold off on ffp unless active procedure/bleeding, first begin with vit K 10 --> mixing study as needed # Severe Sepsis woth likely hcap --> on abx as per ID team # Acute metabolic encephalopathy superimposed on severe dementia --> on IV antibiotics to vanco and meropenem--> cefazolin --> check blood cultures, serial lactate and PCT # Hypernatremia --> on fluids as per nephro # Chronic sCHF s/p AICD --> off anticoagulation, reviewed recs of Dr. Hi --> okay to restart given potentially benefit outweighs risk # Atrial fibrillation # VINH --> currently improving The timing of this note does not necessarily reflect the time of the patient was seen. Greatly appreciate consultation! Subjective HEENT: Denies: no symptoms, eye pain, blurred vision, tearing, double vision, ear pain, ear discharge, nose pain, nose congestion, throat pain, throat swelling, mouth pain, mouth swelling, other Gastrointestinal/Abdominal: Denies: no symptoms, abdomen distended, abdominal pain, black stools, tarry stools, blood in stool, constipated, diarrhea, difficulty swallowing, nausea, poor appetite, poor fluid intake, rectal bleeding , vomiting, other Genitourinary: Denies: no symptoms, burning, discharge, frequency, flank pain, hematuria, incontinence, pain, urgency, other Endocrine: Denies: no symptoms, excessive sweating, flushing, intolerance to cold, intolerance to heat, increased hunger, increased thirst, increased urine, unexplained weight gain, unexplained weight loss, other Allergies: Coded Allergies: No Known Allergies (Unverified , 01/06/19) Subjective 01/08: pending lab workup, us of the abd pending, spep and dic panel pending 01/10: Seen by bedside, remains lethargic, no acute distress, plt remains low at 46 01/11: resting in bed, no acute distress, plt trending down 38 01/12: awake, comfortable, no acute distress noted, plt trending up 01/13: seen by bedside, awake, comfortable, no acute distress. 01/14: NG tube insertion, Pt is lethargic, plt trending up, hgb 7.7 01/15: lethargic, on 2L NC, no events, pending cbc today 01/17: family consiering peg, plts are uptrending Objective Last 24 Hour Vital Signs Date Time Temp Pulse Resp B/P (MAP) Pulse Ox O2 Delivery O2 Flow Rate FiO2 01/17/19 09:00 Nasal Cannula 2.0 01/17/19 08:26 73 128/63 01/17/19 08:00 97.4 73 18 128/63 (84) 98 01/17/19 04:00 97.5 79 16 129/69 (89) 97 01/17/19 00:00 97.1 73 16 120/57 (78) 97 01/16/19 20:54 Nasal Cannula 2.0 01/16/19 20:41 75 131/76 01/16/19 20:00 97.3 75 17 131/76 (94) 95 01/16/19 16:00 98.2 72 18 124/58 (80) 98 01/16/19 12:00 97.8 72 16 108/54 (72) 96 Intake and Output 01/16/19 01/17/19 18:59 06:59 Intake Total 300 ml 600.0 ml Output Total 1100 ml 1200 ml Balance -800 ml -600.0 ml IV Total 300 ml 600.0 ml Output Urine Total 1100 ml 1200 ml # Voids 3 # Bowel Movements 1 Height (Feet): 5 Height (Inches): 2.00 Weight (Pounds): 200 Objective PE General Appearance: lethargic ++2l NC Lines, tubes and drains: peripheral HEENT: normocephalic, atraumatic. NG tube insertion Neck: normal alignment Respiratory/Chest: lungs clear, normal breath sounds Cardiovascular/Chest: normal peripheral pulses, normal rate Abdomen: non tender, soft, no organomegaly Extremities: non-tender, normal inspection : Blane Peralta MD Jan 17, 2019 11:34
[2019-01-17 12:00] VITALS: BP 121/67
--- NOTE | 2019-01-17 12:50 | General Progress Note ---
Assessment/Plan Assessment/Plan #Severe Sepsis #MSSA pneumonia, possibly due to aspiration #E. coli UTI #Acute metabolic encephalopathy superimposed on severe dementia -continue antibiotics per ID -aspiration precautions -place NGT with wrist restraints -family will consider PEG placement #Hypernatremia -resolved -monitor BMP -Nephrology following #Chronic sCHF s/p AICD #Atrial fibrillation #HTN #CAD -HTN controlled -Continue Coreg -Cardiology eval appreciated VTE PPx Heparin SC DNR/DNI Subjective Date patient seen: Jan 17, 2019 Time patient seen: 12:49 ROS Limited/Unobtainable: No Allergies: Coded Allergies: No Known Allergies (Unverified , 01/06/19) Subjective No acute overnight events, no new complaints. Objective Last 24 Hour Vital Signs Date Time Temp Pulse Resp B/P (MAP) Pulse Ox O2 Delivery O2 Flow Rate FiO2 01/17/19 12:00 97.8 70 18 121/67 (85) 98 01/17/19 09:00 Nasal Cannula 2.0 01/17/19 08:26 73 128/63 01/17/19 08:00 97.4 73 18 128/63 (84) 98 01/17/19 04:00 97.5 79 16 129/69 (89) 97 01/17/19 00:00 97.1 73 16 120/57 (78) 97 01/16/19 20:54 Nasal Cannula 2.0 01/16/19 20:41 75 131/76 01/16/19 20:00 97.3 75 17 131/76 (94) 95 01/16/19 16:00 98.2 72 18 124/58 (80) 98 Intake and Output 01/16/19 01/17/19 19:00 07:00 Intake Total 300 ml 600.0 ml Output Total 1100 ml 1200 ml Balance -800 ml -600.0 ml IV Total 300 ml 600.0 ml Output Urine Total 1100 ml 1200 ml # Voids 3 # Bowel Movements 1 Height (Feet): 5 Height (Inches): 2.00 Weight (Pounds): 200 Objective General: alert, cooperative, no distress, appears stated age Head: normocephalic, without obvious abnormality, atraumatic Eyes: conjunctivae/corneas clear. PERRL, EOM's intact Throat: lips, mucosa, and tongue normal. MMM Neck: supple, symmetrical, trachea midline, and no JVD Lungs: clear to auscultation bilaterally Heart: regular rate and rhythm, S1, S2 normal, no murmur, click, rub or gallop Abdomen: soft, non-tender, non-distended, bowel sounds normal; no masses or organomegaly Extremities: extremities normal, atraumatic, no cyanosis or edema Pulses: 2+ and symmetric Skin: skin color, texture, turgor normal; no rashes or lesions Neurologic: grossly normal, no focal deficits Bear Herron MD Jan 17, 2019 12:50
--- NOTE | 2019-01-17 14:58 | Infectious Diseases Prog Note ---
Assessment/Plan Assessment/Plan ASSESSMENT AND PLAN: 1. e.coli uti, staph aureus pna/MSSA, possible aspiration pna with jennifer-hilar infiltrate, sepsis, sirs, leukopenia, hypothermia, ams/lethargy - ancef and flagyl x 3 days to finish full abx treatment course - poor oral intake - f/u on labs - chest x-ray improved and now negative 2. The patient has severe hypernatremia. 3. Dehydration. 4. Acute kidney injury. 5. Elevated creatinine. 6. Intravenous fluids. 7. Hypothermia. 8. Pancytopenia. Workup per Hematology/Oncology. 9. Hypertension. 10. Coronary artery disease. 11. Congestive heart failure. 12. Automatic implanted cardioverter. 13. Subdural hematoma. 14. Severe dementia. 15. Aspiration risk. 16. No known drug allergies. 17. Social history is negative. 18. Family history is noncontributory. 19. MAR was noted. 20. Case was discussed with RN. 21. Encephalopathy. 22. Skin care protocol. 23. The patient is DNR/DNI. 24. aspiration precautions 25. mrsa colonization 26. wound care per protocol - sacral wound noted and not acutely infected Subjective Constitutional: Denies: fever HEENT: Denies: congestion Respiratory: Denies: shortness of breath Cardiovascular: Denies: chest pain Gastrointestinal/Abdominal: Denies: vomiting, diarrhea Genitourinary: Reports: other - + pendleton Psychiatric: Denies: depression Skin: Denies: rash Hematologic: Denies: bleeding Musculoskeletal: Denies: pain Allergies: Coded Allergies: No Known Allergies (Unverified , 01/06/19) Objective Vital Signs Last 24 Hour Vital Signs Date Time Temp Pulse Resp B/P (MAP) Pulse Ox O2 Delivery O2 Flow Rate FiO2 01/17/19 12:00 97.8 70 18 121/67 (85) 98 01/17/19 09:00 Nasal Cannula 2.0 01/17/19 08:26 73 128/63 01/17/19 08:00 97.4 73 18 128/63 (84) 98 01/17/19 04:00 97.5 79 16 129/69 (89) 97 01/17/19 00:00 97.1 73 16 120/57 (78) 97 01/16/19 20:54 Nasal Cannula 2.0 01/16/19 20:41 75 131/76 01/16/19 20:00 97.3 75 17 131/76 (94) 95 01/16/19 16:00 98.2 72 18 124/58 (80) 98 Height (Feet): 5 Height (Inches): 2.00 Weight (Pounds): 200 General Appearance: no acute distress HEENT: normocephalic, atraumatic, anicteric, mucous membranes moist Respiratory/Chest: lungs clear, normal breath sounds, no respiratory distress, no accessory muscle use Cardiovascular: normal rate, regular rhythm, no gallop/murmur, no JVD Abdomen: normal bowel sounds, soft, non tender, no organomegaly, non distended Genitourinary: other - + pendleton Extremities: no cyanosis Skin: no rash Neurologic/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 Surgical clips are seen in the left axilla. The heart is borderline enlarged. The lungs demonstrate possible hazy infiltrate in left perihilar region Impression: Possible left perihilar infiltrate Borderline cardiomegaly Other findings as noted 01/12 - chest x-ray - Comparison: 01/10/2019 Findings: The heart is enlarged. There is patchy parenchymal opacity in the left suprahilar region which is not evident previously. There is equivocal minimal interstitial congestive change. The lungs and pleural spaces are otherwise grossly clear, although a pacemaker obscures much of the left lung. Surgical clips are seen in the left chest wall Impression: New or increased patchy left suprahilar opacity Equivocal minimal interstitial congestion Chest x-ray - 01/14/19 - Findings: Again demonstrated is a left chest AICD with epicardial leads. Surgical clips are seen in the left axilla. The heart is enlarged. The lungs and pleural spaces are clear. There is a right arm PICC Impression: No acute process Cardiomegaly Other findings as noted Microbiology Date/Time Source Procedure Growth Status 01/06/19 17:25 Blood Blood Culture - Final NO GROWTH AFTER 5 DAYS Complete 01/08/19 07:00 Sputum Induced Gram Stain - Final Complete 01/08/19 07:00 Sputum Culture - Final Staphylococcus Aureus Complete 01/07/19 11:30 Urine,Clean Catch Urine Culture - Final Escherichia Coli Complete 01/06/19 18:10 Rectum VRE Culture - Final NO VANCOMYCIN RESISTANT ENTEROCOCCUS ... Complete 01/06/19 18:10 Rectum - Final NO CARBAPENEM-RESISTANT ENTEROBACTERI... Complete Labs Test 01/16/19 05:00 01/16/19 06:55 White Blood Count 6.8 K/UL (4.8-10.8) Red Blood Count 2.39 M/UL (4.20-5.40) Hemoglobin 7.7 G/DL (12.0-16.0) Hematocrit 23.9 % (37.0-47.0) Mean Corpuscular Volume 100 FL (80-99) Mean Corpuscular Hemoglobin 32.2 PG (27.0-31.0) Mean Corpuscular Hemoglobin Concent 32.3 G/DL (32.0-36.0) Red Cell Distribution Width 16.6 % (11.6-14.8) Platelet Count 114 K/UL (150-450) Mean Platelet Volume 8.7 FL (6.5-10.1) Neutrophils (%) (Auto) % (45.0-75.0) Lymphocytes (%) (Auto) % (20.0-45.0) Monocytes (%) (Auto) % (1.0-10.0) Eosinophils (%) (Auto) % (0.0-3.0) Basophils (%) (Auto) % (0.0-2.0) Differential Total Cells Counted 100 Neutrophils % (Manual) 86 % (45-75) Lymphocytes % (Manual) 8 % (20-45) Monocytes % (Manual) 6 % (1-10) Eosinophils % (Manual) 0 % (0-3) Basophils % (Manual) 0 % (0-2) Band Neutrophils 0 % (0-8) Platelet Estimate Decreased Platelet Morphology Normal Hypochromasia 1+ Anisocytosis 1+ Macrocytosis 1+ Sodium Level 134 MMOL/L (136-145) Potassium Level 3.2 MMOL/L (3.5-5.1) Chloride Level 103 MMOL/L (98-107) Carbon Dioxide Level 23 MMOL/L (21-32) Anion Gap 8 mmol/L (5-15) Blood Urea Nitrogen 16 mg/dL (7-18) Creatinine 1.3 MG/DL (0.55-1.30) Estimat Glomerular Filtration Rate mL/min (>60) Glucose Level 129 MG/DL (74-106) Calcium Level 9.0 MG/DL (8.5-10.1) Phosphorus Level 1.9 MG/DL (2.5-4.9) Magnesium Level 1.9 MG/DL (1.8-2.4) Total Bilirubin 0.6 MG/DL (0.2-1.0) Direct Bilirubin 0.2 MG/DL (0.0-0.3) Gamma Glutamyl Transpeptidase 14 U/L (5-85) Aspartate Amino Transf (AST/SGOT) 19 U/L (15-37) Alanine Aminotransferase (ALT/SGPT) < 6 U/L (12-78) Alkaline Phosphatase 87 U/L (46-116) Pro-B-Type Natriuretic Peptide 7287 pg/mL (0-125) Total Protein 5.5 G/DL (6.4-8.2) Albumin 1.7 G/DL (3.4-5.0) Current Medications Medications (Trade) Dose Ordered Sig/Nuria Route PRN Reason Start Time Stop Time Status Last Admin Dose Admin Carvedilol (Coreg) 3.125 mg EVERY 12 HOURS ORAL 01/13/19 21:00 02/12/19 20:59 01/17/19 08:26 Cefazolin Sodium 1 gm/Dextrose 55 ml @ 110 mls/hr Q8H IVPB 01/15/19 16:00 01/22/19 15:59 01/17/19 08:26 Chlorhexidine Gluconate (Kaylee-Hex 2%) 1 applic DAILY@2000 TOPIC 01/13/19 20:00 02/12/19 19:59 01/16/19 20:41 Dextrose 1,000 ml @ 40 mls/hr Q24H IV 01/16/19 18:00 02/15/19 17:59 01/16/19 18:28 Dextrose (Dextrose 50%) 25 ml Q30M PRN IV Hypoglycemia 01/13/19 04:00 02/05/19 18:59 Dextrose (Dextrose 50%) 50 ml Q30M PRN IV Hypoglycemia 01/13/19 04:00 02/05/19 18:59 Metronidazole 100 ml @ 100 mls/hr Q8HR IVPB 01/13/19 06:00 01/20/19 05:59 01/17/19 14:00 Ninfa Vences MD Jan 17, 2019 14:58
--- NOTE | 2019-01-17 15:55 | Nephrology Progress Note ---
Assessment/Plan Problem List: (1) Acute renal failure Assessment: resolving (2) Dehydration (3) Hypernatremia (4) Anemia Assessment acute Renal Failure Cr lowering Sepsis / UTI / Pneumonia Acute metabolic Encephalopathy Hypernatremia AICD AT FIB CAD HTN presents with Low BP Anemia DNR DNI Plan k Phos IV as needed down on IV fluids watch for chf pendleton hold mind altering meds protonix IV DC Motrin !!! Subjective ROS Limited/Unobtainable: No Constitutional: Reports: malaise Objective Objective Last 24 Hour Vital Signs Date Time Temp Pulse Resp B/P (MAP) Pulse Ox O2 Delivery O2 Flow Rate FiO2 01/17/19 12:00 97.8 70 18 121/67 (85) 98 01/17/19 09:00 Nasal Cannula 2.0 01/17/19 08:26 73 128/63 01/17/19 08:00 97.4 73 18 128/63 (84) 98 01/17/19 04:00 97.5 79 16 129/69 (89) 97 01/17/19 00:00 97.1 73 16 120/57 (78) 97 01/16/19 20:54 Nasal Cannula 2.0 01/16/19 20:41 75 131/76 01/16/19 20:00 97.3 75 17 131/76 (94) 95 01/16/19 16:00 98.2 72 18 124/58 (80) 98 Intake and Output 01/16/19 01/17/19 19:00 07:00 Intake Total 300 ml 600.0 ml Output Total 1100 ml 1200 ml Balance -800 ml -600.0 ml IV Total 300 ml 600.0 ml Output Urine Total 1100 ml 1200 ml # Voids 3 # Bowel Movements 1 Height (Feet): 5 Height (Inches): 2.00 Weight (Pounds): 200 General Appearance: no apparent distress Cardiovascular: normal rate Respiratory/Chest: decreased breath sounds Abdomen: soft Objective no change Noe Wells MD Jan 17, 2019 15:54
[2019-01-17 16:00] VITALS: BP 127/70
--- NOTE | 2019-01-17 19:24 | NUR ---
HAND-OFF: Report given to RADAMES Warren.
--- NOTE | 2019-01-17 19:37 | NUR ---
NURSE NOTES: Patient in bed, awake, unable to make needs known. Kept clean and comfortable. bed in low and locked position. Provided safe environment. Call light is at bedside. Skin is warm and dry to touch. Noted with right forearm dressing and sacral dressing, intact, clean. Special mattress noted. pendleton catheter noted, draining. Picc line noted on the right upper arm, iv fluid is infusing as ordered. Will continue plan of care.
[2019-01-17 20:00] VITALS: BP 131/60
[2019-01-17] MEDS: Dyna-Hex 2% Top Sol 2oz TOPIC SCH (20:39)
[2019-01-18] VITALS: BP 127/66
[2019-01-18 04:00] VITALS: BP 134/61
[2019-01-18 07:08] LABS: HEMATOCRIT 23.4 % (37.0-47.0); HEMOGLOBIN 7.6 G/DL (12.0-16.0); MEAN CORPUSCULAR VOLUME 98 FL (80-99); PLATELET COUNT 169 K/UL (150-450); RED BLOOD COUNT 2.38 M/UL (4.20-5.40); WHITE BLOOD COUNT 5.4 K/UL (4.8-10.8)
[2019-01-18 07:16] LABS: ANION GAP 6 mmol/L (5-15); BLOOD UREA NITROGEN 13 mg/dL (7-18); CALCIUM 8.9 MG/DL (8.5-10.1); CARBON DIOXIDE 25 MMOL/L (21-32); CHLORIDE 105 MMOL/L (98-107); CREATININE 1.1 MG/DL (0.55-1.30); POTASSIUM 3.6 MMOL/L (3.5-5.1); SODIUM 136 MMOL/L (136-145)
--- NOTE | 2019-01-18 07:25 | NUR ---
HAND-OFF: Report given to Lisa Dale.
--- NOTE | 2019-01-18 07:30 | NUR ---
NURSE NOTES: Received pt from [facility]. Pt is confused and orient x1. Pt is in RA. No SOB or acute respiratory distress noted. pt has folly cath in place is running well. pt has PICC VENESSA is running well. HB 7.6, Dr CHAVES is aware, NNO. all needs attended, bed is locked and is in the lowest position. call light within easy reach. will continue to monitor.
[2019-01-18 07:50] LABS: ALANINE AMINOTRANSFERASE 6 U/L (12-78); ALBUMIN 1.6 G/DL (3.4-5.0); ALKALINE PHOSPHATASE 89 U/L (46-116); ASPARTATE AMINO TRANSFERASE 28 U/L (15-37); BILIRUBIN,DIRECT 0.1 MG/DL (0.0-0.3); BILIRUBIN,TOTAL 0.4 MG/DL (0.2-1.0); PHOSPHORUS 2.4 MG/DL (2.5-4.9)
[2019-01-18 08:00] VITALS: BP 120/58
[2019-01-18] MEDS: ceFAZolin sod 1 GM in D5W 55 ML IVPB SCH ×2 (08:30→15:08)
[2019-01-18] MEDS ORDERED: Phospha 250 Neutral tab ORAL SCH (09:45)
--- NOTE | 2019-01-18 10:28 | NUR ---
*-* INSURANCE *-* UPDATED CLINICALS AND REVIEWS HAVE BEEN FAXED TO: DEBORA:DEVANTE F:[phone] P:[phone]
[2019-01-18] MEDS ORDERED: Potassium Phosphate 30 MM in NS 275 ML IV SCH (11:00)
--- NOTE | 2019-01-18 11:19 | Infectious Diseases Prog Note ---
Assessment/Plan Assessment/Plan ASSESSMENT AND PLAN: 1. e.coli uti, staph aureus pna/MSSA, possible aspiration pna with jennifer-hilar infiltrate, sepsis, sirs, leukopenia, hypothermia, ams/lethargy - ancef and flagyl x 2 days to finish full abx treatment course - poor oral intake - f/u on labs - chest x-ray improved and now negative 2. The patient has severe hypernatremia. 3. Dehydration. 4. Acute kidney injury. 5. Elevated creatinine. 6. Intravenous fluids. 7. Hypothermia. 8. Pancytopenia. Workup per Hematology/Oncology. 9. Hypertension. 10. Coronary artery disease. 11. Congestive heart failure. 12. Automatic implanted cardioverter. 13. Subdural hematoma. 14. Severe dementia. 15. Aspiration risk. 16. No known drug allergies. 17. Social history is negative. 18. Family history is noncontributory. 19. MAR was noted. 20. Case was discussed with RN. 21. Encephalopathy. 22. Skin care protocol. 23. The patient is DNR/DNI. 24. aspiration precautions 25. mrsa colonization 26. wound care per protocol - sacral wound noted and not acutely infected Subjective Constitutional: Denies: fever HEENT: Denies: congestion Respiratory: Denies: shortness of breath Cardiovascular: Denies: chest pain Gastrointestinal/Abdominal: Denies: nausea, vomiting, diarrhea Genitourinary: Reports: other - + pendleton Neurologic: Denies: headache Psychiatric: Denies: depression Skin: Denies: rash Hematologic: Denies: bleeding Musculoskeletal: Denies: pain Allergies: Coded Allergies: No Known Allergies (Unverified , 01/06/19) Objective Vital Signs Last 24 Hour Vital Signs Date Time Temp Pulse Resp B/P (MAP) Pulse Ox O2 Delivery O2 Flow Rate FiO2 01/18/19 09:00 Room Air 01/18/19 08:31 70 120/58 01/18/19 08:00 98.1 70 18 120/58 (78) 98 01/18/19 07:52 99 Nasal Cannula 2.0 28 01/18/19 07:52 Nasal Cannula 2.0 28 01/18/19 04:00 98.3 71 18 134/61 (85) 97 01/18/19 00:00 98.1 69 18 127/66 (86) 98 01/17/19 21:08 98 Nasal Cannula 2.0 28 01/17/19 21:08 Nasal Cannula 2.0 28 01/17/19 21:00 Nasal Cannula 2.0 01/17/19 20:39 72 131/60 01/17/19 20:00 98.6 72 20 131/60 (83) 99 01/17/19 16:00 98.0 76 18 127/70 (89) 97 01/17/19 12:00 97.8 70 18 121/67 (85) 98 Height (Feet): 5 Height (Inches): 2.00 Weight (Pounds): 200 General Appearance: no acute distress HEENT: normocephalic, atraumatic, anicteric, mucous membranes moist Respiratory/Chest: lungs clear, normal breath sounds, no respiratory distress, no accessory muscle use Cardiovascular: normal rate, regular rhythm, no gallop/murmur Abdomen: normal bowel sounds, soft, non tender, no organomegaly, non distended Genitourinary: other - + pendleton - urine slt cloudy Extremities: no cyanosis Skin: no rash 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 Surgical clips are seen in the left axilla. The heart is borderline enlarged. The lungs demonstrate possible hazy infiltrate in left perihilar region Impression: Possible left perihilar infiltrate Borderline cardiomegaly Other findings as noted 01/12 - chest x-ray - Comparison: 01/10/2019 Findings: The heart is enlarged. There is patchy parenchymal opacity in the left suprahilar region which is not evident previously. There is equivocal minimal interstitial congestive change. The lungs and pleural spaces are otherwise grossly clear, although a pacemaker obscures much of the left lung. Surgical clips are seen in the left chest wall Impression: New or increased patchy left suprahilar opacity Equivocal minimal interstitial congestion Chest x-ray - 01/14/19 - Findings: Again demonstrated is a left chest AICD with epicardial leads. Surgical clips are seen in the left axilla. The heart is enlarged. The lungs and pleural spaces are clear. There is a right arm PICC Impression: No acute process Cardiomegaly Other findings as noted Microbiology Date/Time Source Procedure Growth Status 01/06/19 17:25 Blood Blood Culture - Final NO GROWTH AFTER 5 DAYS Complete 01/08/19 07:00 Sputum Induced Gram Stain - Final Complete 01/08/19 07:00 Sputum Culture - Final Staphylococcus Aureus Complete 01/07/19 11:30 Urine,Clean Catch Urine Culture - Final Escherichia Coli Complete 01/06/19 18:10 Rectum VRE Culture - Final NO VANCOMYCIN RESISTANT ENTEROCOCCUS ... Complete 01/06/19 18:10 Rectum - Final NO CARBAPENEM-RESISTANT ENTEROBACTERI... Complete Laboratory Tests Test 01/18/19 06:00 White Blood Count 5.4 K/UL (4.8-10.8) Red Blood Count 2.38 M/UL (4.20-5.40) L Hemoglobin 7.6 G/DL (12.0-16.0) L Hematocrit 23.4 % (37.0-47.0) L Mean Corpuscular Volume 98 FL (80-99) Mean Corpuscular Hemoglobin 31.8 PG (27.0-31.0) H Mean Corpuscular Hemoglobin Concent 32.3 G/DL (32.0-36.0) Red Cell Distribution Width 16.0 % (11.6-14.8) H Platelet Count 169 K/UL (150-450) Mean Platelet Volume 7.8 FL (6.5-10.1) Neutrophils (%) (Auto) % (45.0-75.0) Lymphocytes (%) (Auto) % (20.0-45.0) Monocytes (%) (Auto) % (1.0-10.0) Eosinophils (%) (Auto) % (0.0-3.0) Basophils (%) (Auto) % (0.0-2.0) Differential Total Cells Counted 100 Neutrophils % (Manual) 87 % (45-75) H Lymphocytes % (Manual) 7 % (20-45) L Monocytes % (Manual) 4 % (1-10) Eosinophils % (Manual) 2 % (0-3) Basophils % (Manual) 0 % (0-2) Band Neutrophils 0 % (0-8) Platelet Estimate Adequate Platelet Morphology Normal Anisocytosis 1+ Macrocytosis 1+ Sara Cells 1+ Sodium Level 136 MMOL/L (136-145) Potassium Level 3.6 MMOL/L (3.5-5.1) Chloride Level 105 MMOL/L (98-107) Carbon Dioxide Level 25 MMOL/L (21-32) Anion Gap 6 mmol/L (5-15) Blood Urea Nitrogen 13 mg/dL (7-18) Creatinine 1.1 MG/DL (0.55-1.30) Estimat Glomerular Filtration Rate mL/min (>60) Glucose Level 126 MG/DL (74-106) H Uric Acid 5.2 MG/DL (2.6-7.2) Calcium Level 8.9 MG/DL (8.5-10.1) Phosphorus Level 2.4 MG/DL (2.5-4.9) L Magnesium Level 1.7 MG/DL (1.8-2.4) L Total Bilirubin 0.4 MG/DL (0.2-1.0) Direct Bilirubin 0.1 MG/DL (0.0-0.3) Aspartate Amino Transf (AST/SGOT) 28 U/L (15-37) Alanine Aminotransferase (ALT/SGPT) 6 U/L (12-78) L Alkaline Phosphatase 89 U/L (46-116) Total Protein 5.4 G/DL (6.4-8.2) L Albumin 1.6 G/DL (3.4-5.0) L Current Medications Medications (Trade) Dose Ordered Sig/Nuria Route PRN Reason Start Time Stop Time Status Last Admin Dose Admin Carvedilol (Coreg) 3.125 mg EVERY 12 HOURS ORAL 01/13/19 21:00 02/12/19 20:59 01/18/19 08:31 Cefazolin Sodium 1 gm/Dextrose 55 ml @ 110 mls/hr Q8H IVPB 01/15/19 16:00 01/20/19 23:59 01/18/19 08:30 Chlorhexidine Gluconate (Kaylee-Hex 2%) 1 applic DAILY@2000 TOPIC 01/13/19 20:00 02/12/19 19:59 01/17/19 20:39 Dextrose 1,000 ml @ 40 mls/hr Q24H IV 01/16/19 18:00 02/15/19 17:59 01/17/19 17:19 Dextrose (Dextrose 50%) 25 ml Q30M PRN IV Hypoglycemia 01/13/19 04:00 02/05/19 18:59 Dextrose (Dextrose 50%) 50 ml Q30M PRN IV Hypoglycemia 01/13/19 04:00 02/05/19 18:59 Metronidazole 100 ml @ 100 mls/hr Q8HR IVPB 01/13/19 06:00 01/20/19 05:59 01/18/19 05:34 Potassium Phosphate 30 mm/ Sodium Chloride 285 ml @ 47.5 mls/hr ONCE IV 01/18/19 11:00 01/18/19 13:00 Ninfa Vences MD Jan 18, 2019 11:19
[2019-01-18 12:00] VITALS: BP 122/61
--- NOTE | 2019-01-18 14:42 | NUR ---
RD ASSESSMENT & RECOMMENDATIONS SEE CARE ACTIVITY FOR COMPLETE ASSESSMENT DAILY ESTIMATED NEEDS: Needs based on Wound, obese 58.8kg adj 25-30 kcals/kg 5434-3048 total kcals 1.25-1.5 g protein/kg 74-88 g total protein 25-30 mL/kg 9247-6974 total fluid mLs NUTRITION DIAGNOSIS: 1) Increased kcal and protein needs r/t wound healing as evidenced by pt w/ sacral stage 2 per RN 2) Altered nutrition related lab values r/t water deficits, clinical condition, h/o DM as evidenced by pt adm w/ Na 165-> now normalized, elev BUN and creat, now both normalized, elev BGs (126 129, improved) . 3) Swallowing difficulty R/T dysphagia w/ h/o CVA, lethargy as evidenced by DISTRICT RESOURCE OFFICER initially recommended NPO, NGT was inserted, but s/p self removal of NGT, pt now back on liquify pureed, NTL diet. CURRENT DIET:LOW NA/ liquify pureed, NTL + Glucerna TID PO DIET RECOMMENDATIONS: LOW NA (texture per DISTRICT RESOURCE OFFICER) ADDITIONAL RECOMMENDATIONS: 1) RE-calibrate bed scale w/ added P200 mattress 2) Wound healing: Add SWAPNA BID, MVI x 1, Vit C 500mg QD Rec wound eval 3) Monitor BGs, need for hypoglycemic agent - h/o DM 4) Glucerna TID while on liquify pureed texture diet.
--- NOTE | 2019-01-18 15:57 | Nephrology Progress Note ---
Assessment/Plan Problem List: (1) Acute renal failure Assessment: resolving (2) Dehydration (3) Hypernatremia (4) Anemia Assessment acute Renal Failure Cr lowering Sepsis / UTI / Pneumonia Acute metabolic Encephalopathy Hypernatremia AICD AT FIB CAD HTN presents with Low BP Anemia DNR DNI Plan k Phos IV as needed down on IV fluids watch for chf pendleton hold mind altering meds protonix IV DC Motrin !!! Subjective ROS Limited/Unobtainable: No Constitutional: Reports: malaise Objective Objective Last 24 Hour Vital Signs Date Time Temp Pulse Resp B/P (MAP) Pulse Ox O2 Delivery O2 Flow Rate FiO2 01/18/19 12:00 98.6 81 19 122/61 (81) 98 01/18/19 09:00 Room Air 01/18/19 08:31 70 120/58 01/18/19 08:00 98.1 70 18 120/58 (78) 98 01/18/19 07:52 99 Nasal Cannula 2.0 28 01/18/19 07:52 Nasal Cannula 2.0 28 01/18/19 04:00 98.3 71 18 134/61 (85) 97 01/18/19 00:00 98.1 69 18 127/66 (86) 98 01/17/19 21:08 98 Nasal Cannula 2.0 28 01/17/19 21:08 Nasal Cannula 2.0 28 01/17/19 21:00 Nasal Cannula 2.0 01/17/19 20:39 72 131/60 01/17/19 20:00 98.6 72 20 131/60 (83) 99 01/17/19 16:00 98.0 76 18 127/70 (89) 97 Intake and Output 01/17/19 01/18/19 19:00 07:00 Intake Total 920 ml 475 ml Output Total 600 ml Balance 320 ml 475 ml Intake Oral 480 ml IV Total 440 ml 475 ml Output Urine Total 600 ml Laboratory Tests 01/18/19 06:00: White Blood Count 5.4, Red Blood Count 2.38L, Hemoglobin 7.6L, Hematocrit 23.4L , Mean Corpuscular Volume 98, Mean Corpuscular Hemoglobin 31.8H, Mean Corpuscular Hemoglobin Concent 32.3, Red Cell Distribution Width 16.0H, Platelet Count 169, Mean Platelet Volume 7.8, Neutrophils (%) (Auto) , Lymphocytes (%) (Auto) , Monocytes (%) (Auto) , Eosinophils (%) (Auto) , Basophils (%) (Auto) , Differential Total Cells Counted 100, Neutrophils % ( Manual) 87H, Lymphocytes % (Manual) 7L, Monocytes % (Manual) 4, Eosinophils % ( Manual) 2, Basophils % (Manual) 0, Band Neutrophils 0, Platelet Estimate Adequate, Platelet Morphology Normal, Anisocytosis 1+, Macrocytosis 1+, Sara Cells 1+, Sodium Level 136, Potassium Level 3.6, Chloride Level 105, Carbon Dioxide Level 25, Anion Gap 6, Blood Urea Nitrogen 13, Creatinine 1.1, Estimat Glomerular Filtration Rate , Glucose Level 126H, Uric Acid 5.2, Calcium Level 8.9, Phosphorus Level 2.4L, Magnesium Level 1.7L, Total Bilirubin 0.4, Direct Bilirubin 0.1, Aspartate Amino Transf (AST/SGOT) 28, Alanine Aminotransferase ( ALT/SGPT) 6L, Alkaline Phosphatase 89, Total Protein 5.4L, Albumin 1.6L Height (Feet): 5 Height (Inches): 2.00 Weight (Pounds): 200 General Appearance: no apparent distress Objective no change Noe Wells MD Jan 18, 2019 15:57
[2019-01-18 16:00] VITALS: BP 118/71
--- NOTE | 2019-01-18 16:12 | NUR ---
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 1.7, ALT 6 IS:Metronidazole Chlorhexidine Gluconate Carvedilol Cefazolin Sodium 1gm Dextrose 40mls/hr MED/SURG STATUS
--- NOTE | 2019-01-18 16:53 | Cardiac Electrophysiology PN ---
Assessment/Plan Assessment/Plan 1. Atrial fibrillation. On Coreg and off anticoagulation for thrombocytopenia 2. Status post [employer] biventricular ICD. No shocks 3. Congestive heart failure. EF 35%. 4. Severe hypernatremia and renal failure. On IV fluids per Dr. Wells. 5. History of hypertension. On Coreg 6. MRSA PNA on Abx 7. Altered mental status. 8. Thrombocytopenia. 9. Hx of CVA with dysphasia DW RN and Subjective Subjective No significant change. fed the patient. DC planning to home pending Objective Last 24 Hour Vital Signs Date Time Temp Pulse Resp B/P (MAP) Pulse Ox O2 Delivery O2 Flow Rate FiO2 01/18/19 12:00 98.6 81 19 122/61 (81) 98 01/18/19 09:00 Room Air 01/18/19 08:31 70 120/58 01/18/19 08:00 98.1 70 18 120/58 (78) 98 01/18/19 07:52 99 Nasal Cannula 2.0 28 01/18/19 07:52 Nasal Cannula 2.0 28 01/18/19 04:00 98.3 71 18 134/61 (85) 97 01/18/19 00:00 98.1 69 18 127/66 (86) 98 01/17/19 21:08 98 Nasal Cannula 2.0 28 01/17/19 21:08 Nasal Cannula 2.0 28 01/17/19 21:00 Nasal Cannula 2.0 01/17/19 20:39 72 131/60 01/17/19 20:00 98.6 72 20 131/60 (83) 99 Intake and Output 01/17/19 01/18/19 19:00 07:00 Intake Total 920 ml 475 ml Output Total 600 ml Balance 320 ml 475 ml Intake Oral 480 ml IV Total 440 ml 475 ml Output Urine Total 600 ml Laboratory Tests Test 01/18/19 06:00 White Blood Count 5.4 K/UL (4.8-10.8) Red Blood Count 2.38 M/UL (4.20-5.40) L Hemoglobin 7.6 G/DL (12.0-16.0) L Hematocrit 23.4 % (37.0-47.0) L Mean Corpuscular Volume 98 FL (80-99) Mean Corpuscular Hemoglobin 31.8 PG (27.0-31.0) H Mean Corpuscular Hemoglobin Concent 32.3 G/DL (32.0-36.0) Red Cell Distribution Width 16.0 % (11.6-14.8) H Platelet Count 169 K/UL (150-450) Mean Platelet Volume 7.8 FL (6.5-10.1) Neutrophils (%) (Auto) % (45.0-75.0) Lymphocytes (%) (Auto) % (20.0-45.0) Monocytes (%) (Auto) % (1.0-10.0) Eosinophils (%) (Auto) % (0.0-3.0) Basophils (%) (Auto) % (0.0-2.0) Differential Total Cells Counted 100 Neutrophils % (Manual) 87 % (45-75) H Lymphocytes % (Manual) 7 % (20-45) L Monocytes % (Manual) 4 % (1-10) Eosinophils % (Manual) 2 % (0-3) Basophils % (Manual) 0 % (0-2) Band Neutrophils 0 % (0-8) Platelet Estimate Adequate Platelet Morphology Normal Anisocytosis 1+ Macrocytosis 1+ [place] Cells 1+ Sodium Level 136 MMOL/L (136-145) Potassium Level 3.6 MMOL/L (3.5-5.1) Chloride Level 105 MMOL/L (98-107) Carbon Dioxide Level 25 MMOL/L (21-32) Anion Gap 6 mmol/L (5-15) Blood Urea Nitrogen 13 mg/dL (7-18) Creatinine 1.1 MG/DL (0.55-1.30) Estimat Glomerular Filtration Rate mL/min (>60) Glucose Level 126 MG/DL (74-106) H Uric Acid 5.2 MG/DL (2.6-7.2) Calcium Level 8.9 MG/DL (8.5-10.1) Phosphorus Level 2.4 MG/DL (2.5-4.9) L Magnesium Level 1.7 MG/DL (1.8-2.4) L Total Bilirubin 0.4 MG/DL (0.2-1.0) Direct Bilirubin 0.1 MG/DL (0.0-0.3) Aspartate Amino Transf (AST/SGOT) 28 U/L (15-37) Alanine Aminotransferase (ALT/SGPT) 6 U/L (12-78) L Alkaline Phosphatase 89 U/L (46-116) Total Protein 5.4 G/DL (6.4-8.2) L Albumin 1.6 G/DL (3.4-5.0) L Objective HEAD AND NECK: Mild JVD.NG tube in LUNGS: Decreased breath sounds. CARDIOVASCULAR: Irregular S1 and S2 with no gallop. Defibrillator in left subclavian. ABDOMEN: Soft. EXTREMITIES: No pitting edema. Gabe Hi MD Jan 18, 2019 16:53
--- NOTE | 2019-01-18 19:52 | NUR ---
NURSE NOTES: Received patient in bed, alert and oriented x2, German speaking only,patient has a Bowens cath, draining well, PICC line is on right upper arm, dressing is clean and intact. No acute distress noted or reported, call light is within reach, bed is in low position locked and alarm is on, will continue to monitor for safety and comfort.
--- NOTE | 2019-01-18 19:53 | NUR ---
HAND-OFF: Report given to RADAMES NATH.
[2019-01-18 20:00] VITALS: BP 135/80
--- NOTE | 2019-01-18 20:12 | General Progress Note ---
Assessment/Plan Assessment/Plan #Severe Sepsis #MSSA pneumonia, possibly due to aspiration #E. coli UTI #Acute metabolic encephalopathy superimposed on severe dementia -continue antibiotics per ID -aspiration precautions -pt pulled out NGT, cont liquify pureed -family will consider PEG placement - unable to get ahold of family today, will call again in AM #Hypernatremia -resolved -monitor BMP -Nephrology following #Chronic sCHF s/p AICD #Atrial fibrillation #HTN #CAD -HTN controlled -Continue Coreg -Cardiology eval appreciated -not on AC due to thrombocytopenia VTE PPx Heparin SC DNR/DNI Subjective Allergies: Coded Allergies: No Known Allergies (Unverified , 01/06/19) Subjective No acute overnight events, has no complaints Objective Last 24 Hour Vital Signs Date Time Temp Pulse Resp B/P (MAP) Pulse Ox O2 Delivery O2 Flow Rate FiO2 01/18/19 16:00 98.9 76 17 118/71 (87) 98 01/18/19 12:00 98.6 81 19 122/61 (81) 98 01/18/19 09:00 Room Air 01/18/19 08:31 70 120/58 01/18/19 08:00 98.1 70 18 120/58 (78) 98 01/18/19 07:52 99 Nasal Cannula 2.0 28 01/18/19 07:52 Nasal Cannula 2.0 28 01/18/19 04:00 98.3 71 18 134/61 (85) 97 01/18/19 00:00 98.1 69 18 127/66 (86) 98 01/17/19 21:08 98 Nasal Cannula 2.0 28 01/17/19 21:08 Nasal Cannula 2.0 28 01/17/19 21:00 Nasal Cannula 2.0 01/17/19 20:39 72 131/60 Intake and Output 01/17/19 01/18/19 19:00 07:00 Intake Total 920 ml 475 ml Output Total 600 ml Balance 320 ml 475 ml Intake Oral 480 ml IV Total 440 ml 475 ml Output Urine Total 600 ml Laboratory Tests 01/18/19 06:00: White Blood Count 5.4, Red Blood Count 2.38L, Hemoglobin 7.6L, Hematocrit 23.4L , Mean Corpuscular Volume 98, Mean Corpuscular Hemoglobin 31.8H, Mean Corpuscular Hemoglobin Concent 32.3, Red Cell Distribution Width 16.0H, Platelet Count 169, Mean Platelet Volume 7.8, Neutrophils (%) (Auto) , Lymphocytes (%) (Auto) , Monocytes (%) (Auto) , Eosinophils (%) (Auto) , Basophils (%) (Auto) , Differential Total Cells Counted 100, Neutrophils % ( Manual) 87H, Lymphocytes % (Manual) 7L, Monocytes % (Manual) 4, Eosinophils % ( Manual) 2, Basophils % (Manual) 0, Band Neutrophils 0, Platelet Estimate Adequate, Platelet Morphology Normal, Anisocytosis 1+, Macrocytosis 1+, [place] Cells 1+, Sodium Level 136, Potassium Level 3.6, Chloride Level 105, Carbon Dioxide Level 25, Anion Gap 6, Blood Urea Nitrogen 13, Creatinine 1.1, Estimat Glomerular Filtration Rate , Glucose Level 126H, Uric Acid 5.2, Calcium Level 8.9, Phosphorus Level 2.4L, Magnesium Level 1.7L, Total Bilirubin 0.4, Direct Bilirubin 0.1, Aspartate Amino Transf (AST/SGOT) 28, Alanine Aminotransferase ( ALT/SGPT) 6L, Alkaline Phosphatase 89, Total Protein 5.4L, Albumin 1.6L Height (Feet): 5 Height (Inches): 2.00 Weight (Pounds): 200 Objective General: alert, cooperative, no distress, appears stated age Head: normocephalic, without obvious abnormality, atraumatic Eyes: conjunctivae/corneas clear. PERRL, EOM's intact Throat: lips, mucosa, and tongue normal. MMM Neck: supple, symmetrical, trachea midline, and no JVD Lungs: clear to auscultation bilaterally Heart: regular rate and rhythm, S1, S2 normal, no murmur, click, rub or gallop Abdomen: soft, non-tender, non-distended, bowel sounds normal; no masses or organomegaly Extremities: extremities normal, atraumatic, no cyanosis or edema Pulses: 2+ and symmetric Skin: skin color, texture, turgor normal; no rashes or lesions Neurologic: grossly normal, no focal deficits Tamanna Ontiveros MD Jan 18, 2019 20:12
[2019-01-18] MEDS: Dyna-Hex 2% Top Sol 2oz TOPIC SCH (21:26)
--- NOTE | 2019-01-18 23:29 | General Progress Note ---
Assessment/Plan Assessment/Plan Assessment/Plan: # Severe Pancytopenia -- multiple etiologies could be related to underlying liver disease, medication-induced, infection versus viral syndrome, ID with abx now --> peripheral smear has been ordered and does not show significant abnormalities, however concerning Ca++ elevated --> SPEP is negative for bands --> Continue to monitor for improvement, trend cbc --> Hep panel and HIV are both negative --> US abd ordered to r/o cirrhosis and hepatosplenomegaly does not show it --> consider other causes, infections that could contribute --> reverse isolation if ANC is <2000 --> Give neupogen if ANC <1000 --> Transfuse if hgb <7, with 1 unit prbc --> consider bone marrow biopsy in future, since uptrending plts, can consider as outpatient # Coagulation defect, unspecified (D68.9) aka coagulopathy, multifactorial usually related to poor PO intake versus medications, versus hepatitis v cirrhosis --> administer Vitamin K if patient is bleeding or FFP if the INR is >10 --> hold off on ffp unless active procedure/bleeding, first begin with vit K 10 --> mixing study as needed # Severe Sepsis woth likely hcap --> on abx as per ID team # Acute metabolic encephalopathy superimposed on severe dementia --> on IV antibiotics to vanco and meropenem--> cefazolin --> check blood cultures, serial lactate and PCT # Hypernatremia --> on fluids as per nephro # Chronic sCHF s/p AICD --> off anticoagulation, reviewed recs of Dr. Hi --> okay to restart given potentially benefit outweighs risk # Atrial fibrillation # VINH --> currently improving The timing of this note does not necessarily reflect the time of the patient was seen. Greatly appreciate consultation! Subjective Constitutional: Denies: no symptoms, chills, diaphoresis, fever, malaise, weakness, other HEENT: Denies: no symptoms, eye pain, blurred vision, tearing, double vision, ear pain, ear discharge, nose pain, nose congestion, throat pain, throat swelling, mouth pain, mouth swelling, other Cardiovascular: Denies: no symptoms, chest pain, edema, irregular heart rate, lightheadedness, palpitations, syncope, other Respiratory: Denies: no symptoms, cough, orthopnea, shortness of breath, SOB with excertion, SOB at rest, sputum, stridor, wheezing, other Gastrointestinal/Abdominal: Denies: no symptoms, abdomen distended, abdominal pain, black stools, tarry stools, blood in stool, constipated, diarrhea, difficulty swallowing, nausea, poor appetite, poor fluid intake, rectal bleeding , vomiting, other Genitourinary: Denies: no symptoms, burning, discharge, frequency, flank pain, hematuria, incontinence, pain, urgency, other Neurologic/Psychiatric: Denies: no symptoms, anxiety, depressed, emotional problems, headache, numbness, paresthesia, pre-existing deficit, seizure, tingling, tremors, weakness, other Hematologic/Lymphatic: Denies: no symptoms, anemia, easy bleeding, easy bruising, other Allergies: Coded Allergies: No Known Allergies (Unverified , 01/06/19) Subjective 01/08: pending lab workup, us of the abd pending, spep and dic panel pending 01/10: Seen by bedside, remains lethargic, no acute distress, plt remains low at 46 01/11: resting in bed, no acute distress, plt trending down 38 01/12: awake, comfortable, no acute distress noted, plt trending up 01/13: seen by bedside, awake, comfortable, no acute distress. 01/14: NG tube insertion, Pt is lethargic, plt trending up, hgb 7.7 01/15: lethargic, on 2L NC, no events, pending cbc today 01/17: plts are uptrending, hgb 7.6, no events Objective Last 24 Hour Vital Signs Date Time Temp Pulse Resp B/P (MAP) Pulse Ox O2 Delivery O2 Flow Rate FiO2 01/18/19 21:56 Nasal Cannula 2.0 01/18/19 21:26 89 136/85 01/18/19 20:00 98.7 92 18 135/80 (98) 01/18/19 16:00 98.9 76 17 118/71 (87) 98 01/18/19 12:00 98.6 81 19 122/61 (81) 98 01/18/19 09:00 Room Air 01/18/19 08:31 70 120/58 01/18/19 08:00 98.1 70 18 120/58 (78) 98 01/18/19 07:52 99 Nasal Cannula 2.0 28 01/18/19 07:52 Nasal Cannula 2.0 28 01/18/19 04:00 98.3 71 18 134/61 (85) 97 01/18/19 00:00 98.1 69 18 127/66 (86) 98 Intake and Output 01/17/19 01/18/19 19:00 07:00 Intake Total 920 ml 475 ml Output Total 600 ml Balance 320 ml 475 ml Intake Oral 480 ml IV Total 440 ml 475 ml Output Urine Total 600 ml Laboratory Tests 01/18/19 06:00: White Blood Count 5.4, Red Blood Count 2.38L, Hemoglobin 7.6L, Hematocrit 23.4L , Mean Corpuscular Volume 98, Mean Corpuscular Hemoglobin 31.8H, Mean Corpuscular Hemoglobin Concent 32.3, Red Cell Distribution Width 16.0H, Platelet Count 169, Mean Platelet Volume 7.8, Neutrophils (%) (Auto) , Lymphocytes (%) (Auto) , Monocytes (%) (Auto) , Eosinophils (%) (Auto) , Basophils (%) (Auto) , Differential Total Cells Counted 100, Neutrophils % ( Manual) 87H, Lymphocytes % (Manual) 7L, Monocytes % (Manual) 4, Eosinophils % ( Manual) 2, Basophils % (Manual) 0, Band Neutrophils 0, Platelet Estimate Adequate, Platelet Morphology Normal, Anisocytosis 1+, Macrocytosis 1+, [place] Cells 1+, Sodium Level 136, Potassium Level 3.6, Chloride Level 105, Carbon Dioxide Level 25, Anion Gap 6, Blood Urea Nitrogen 13, Creatinine 1.1, Estimat Glomerular Filtration Rate , Glucose Level 126H, Uric Acid 5.2, Calcium Level 8.9, Phosphorus Level 2.4L, Magnesium Level 1.7L, Total Bilirubin 0.4, Direct Bilirubin 0.1, Aspartate Amino Transf (AST/SGOT) 28, Alanine Aminotransferase ( ALT/SGPT) 6L, Alkaline Phosphatase 89, Total Protein 5.4L, Albumin 1.6L Height (Feet): 5 Height (Inches): 2.00 Weight (Pounds): 200 Objective PE General Appearance: lethargic ++2l NC Lines, tubes and drains: peripheral HEENT: normocephalic, atraumatic. NG tube insertion Neck: normal alignment Respiratory/Chest: lungs clear, normal breath sounds Cardiovascular/Chest: normal peripheral pulses, normal rate Abdomen: non tender, soft, no organomegaly Extremities: non-tender, normal inspection : Blane Peralta MD Jan 18, 2019 23:28
[2019-01-19] VITALS: BP 129/72
[2019-01-19] MEDS: ceFAZolin sod 1 GM in D5W 55 ML IVPB SCH ×3 (00:45→15:22)
[2019-01-19 04:45] VITALS: BP 132/85
--- NOTE | 2019-01-19 07:16 | NUR ---
HAND-OFF: Report given to Chito CRUM.
--- NOTE | 2019-01-19 07:30 | NUR ---
NURSE NOTES: Received pt from RADAMES NATH. Pt is confused orient x2. pt is in room air. no SOB or acute respiratory distress noted. pt has Bowens cath in place is running well. pt has PICC in place is running well. all needs attended, bed is locked and in the lowest position. call light within easy reach. will continue to monitor.
[2019-01-19 08:00] VITALS: BP 137/67
--- NOTE | 2019-01-19 11:58 | NUR ---
ST NOTE: D/C SUMMARY: PT PARTIALLY DID NOT MEET PO INTAKE GOALS(25%), NURSING STAFF MET ASPIRATION PRECAUTIONS GOALS. PT SEEN AT BEDSIDE IN AM. MORE ALERT AND AWAKE. DISCUSSED WITH RN, KASEY WEBER:PT'S CONDITIONS. PER RN, PT TOLERATED CURRENT DIET(LIQUIFIED PUREED, LIKE NECTAR THICK SOUP CONSISTENCY WITH NECTAR THICK LIQUIDS) WITHOUT OVERT S/S OF ASPIRATION, BUT PT DID NOT EAT BREAKFAST THIS MORNING. PER MD'S NOTE, PT'S FAMILY CONSIDERED PEG PLACEMENT. PER RN, PT WILL BE D/C TO SNF TODAY. REFER PT TO CHIMNEY BUILDER HELPER AT DISCHARGE FACILITY AND CONSIDER VIDEOSWALLOW STUDY IF NEEDED. IF PT'S PO INTAKE IS SUBOPTIMAL, CONSIDER LONG-TERM NONORAL FEEDING MEANS. D/C FROM SKILLED [facility] SERV[facility].
[2019-01-19 12:00] VITALS: BP 141/69
--- NOTE | 2019-01-19 12:28 | Nephrology Progress Note ---
Assessment/Plan Problem List: (1) Acute renal failure Assessment: resolving (2) Dehydration (3) Hypernatremia (4) Anemia Assessment acute Renal Failure Cr lowering Sepsis / UTI / Pneumonia Acute metabolic Encephalopathy Hypernatremia AICD AT FIB CAD HTN presents with Low BP Anemia DNR DNI Plan k Phos IV as needed down on IV fluids watch for chf pendleton hold mind altering meds protonix IV DC Motrin !!! Subjective ROS Limited/Unobtainable: No Constitutional: Reports: malaise, weakness Objective Objective Last 24 Hour Vital Signs Date Time Temp Pulse Resp B/P (MAP) Pulse Ox O2 Delivery O2 Flow Rate FiO2 01/19/19 09:00 Room Air 01/19/19 08:29 73 137/67 01/19/19 08:00 98.2 73 16 137/67 (90) 97 01/19/19 04:45 98.7 82 18 132/85 (101) 01/19/19 00:00 98.9 71 19 129/72 (91) 01/18/19 21:56 Nasal Cannula 2.0 01/18/19 21:26 89 136/85 01/18/19 20:00 98.7 92 18 135/80 (98) 01/18/19 16:00 98.9 76 17 118/71 (87) 98 Intake and Output 01/18/19 01/19/19 18:59 06:59 Intake Total 935.0 ml 1275 ml Output Total 1100 ml 900 ml Balance -165.0 ml 375 ml Intake Oral 100 ml IV Total 935.0 ml 160 ml Tube Feeding 15 ml Other 1000 ml Output Urine Total 1100 ml 900 ml # Voids 3 # Bowel Movements 1 Height (Feet): 5 Height (Inches): 2.00 Weight (Pounds): 200 General Appearance: no apparent distress Cardiovascular: regular rhythm Respiratory/Chest: decreased breath sounds Abdomen: distended Objective no change Noe Wells MD Jan 19, 2019 12:28
--- NOTE | 2019-01-19 14:00 | NUR ---
NURSE NOTES:WOUND CARE NOTES: Pt presented on admission with incontinence associated dermatitis perineum,medial/posterior aspects of both thighs. Sacral area non-tender when palpated.Non-blanchable erythema without fluctuance L hallux Bilat heels pink and firm. Resolving skin teear medial upper L thigh. base of wound pink and dry .No other skin concerns noted. Tx.Plan:Apply Triad Paste to perineum, Sacrum, medial/posterior aspects of both upper thighs with each perineal care. Apply Cavilon Skin Barrier to L hallux. Cover with Optifoam drsg .Change every 7 days and prn. Apply Optifoam drsg to skin tear medial upper L thigh .Change Q 3days and prn. Reposition at least every 2hours or as tolerated. Off-load heels with pillow.
--- NOTE | 2019-01-19 14:00 | NUR ---
NURSE NOTES: pt given bed bath and tolerate well. wound care done as order. will continue to monitor
--- NOTE | 2019-01-19 14:35 | NUR ---
SURGERY TECHFILE CLERK SI:DEHYDRATION/SEPSIS VS: BP 141/69, P 86, T 97.2, RR 18, SpO2 98 Room Air IS:Metronidazole Chlorhexidine Gluconate Carvedilol Cefazolin Sodium 1gm Dextrose 40mls/hr MED/SURG STATUS
[2019-01-19 16:00] VITALS: BP 127/63
--- NOTE | 2019-01-19 16:03 | Infectious Diseases Prog Note ---
Assessment/Plan Assessment/Plan ASSESSMENT AND PLAN: 1. e.coli uti, staph aureus pna/MSSA, possible aspiration pna with jennifer-hilar infiltrate, sepsis, sirs, leukopenia, hypothermia, ams/lethargy - ancef and flagyl x 1 day to finish full abx treatment course - poor oral intake - f/u on labs - chest x-ray improved and now negative 2. The patient has severe hypernatremia. 3. Dehydration. 4. Acute kidney injury. 5. Elevated creatinine. 6. Intravenous fluids. 7. Hypothermia. 8. Pancytopenia. Workup per Hematology/Oncology. 9. Hypertension. 10. Coronary artery disease. 11. Congestive heart failure. 12. Automatic implanted cardioverter. 13. Subdural hematoma. 14. Severe dementia. 15. Aspiration risk. 16. No known drug allergies. 17. Social history is negative. 18. Family history is noncontributory. 19. MAR was noted. 20. Case was discussed with RN. 21. Encephalopathy. 22. Skin care protocol. 23. The patient is DNR/DNI. 24. aspiration precautions 25. mrsa colonization 26. wound care per protocol - sacral wound noted and not acutely infected Subjective Constitutional: Denies: fever HEENT: Denies: congestion Respiratory: Denies: shortness of breath Cardiovascular: Denies: chest pain Gastrointestinal/Abdominal: Denies: nausea, vomiting, diarrhea Genitourinary: Reports: other - + pendleton Neurologic: Denies: headache Psychiatric: Denies: depression Skin: Denies: rash Hematologic: Denies: bleeding Musculoskeletal: Denies: pain Allergies: Coded Allergies: No Known Allergies (Unverified , 01/06/19) Objective Vital Signs Last 24 Hour Vital Signs Date Time Temp Pulse Resp B/P (MAP) Pulse Ox O2 Delivery O2 Flow Rate FiO2 01/19/19 12:00 97.2 86 18 141/69 (93) 98 01/19/19 09:00 Room Air 01/19/19 08:29 73 137/67 01/19/19 08:00 98.2 73 16 137/67 (90) 97 01/19/19 04:45 98.7 82 18 132/85 (101) 01/19/19 00:00 98.9 71 19 129/72 (91) 01/18/19 21:56 Nasal Cannula 2.0 01/18/19 21:26 89 136/85 01/18/19 20:00 98.7 92 18 135/80 (98) 01/18/19 16:00 98.9 76 17 118/71 (87) 98 Height (Feet): 5 Height (Inches): 2.00 Weight (Pounds): 200 General Appearance: no acute distress HEENT: normocephalic, atraumatic, anicteric, mucous membranes moist Respiratory/Chest: lungs clear - mostly clear bilateral , no accessory muscle use, crackles/rales - few, rhonchi - bilaterally - few Cardiovascular: normal rate, regular rhythm, regularly irregular Abdomen: soft, non tender, no organomegaly, non distended Genitourinary: other - + pendleton - uinre clear Extremities: no cyanosis Skin: no rash Neurologic/Psychiatric: library helper II-XII grossly normal, abnormal gait, responsive Lymphatic: no neck adenopathy Musculoskeletal: no effusion Objective 01/06 - chest x-ray - Comparison: none Findings: There is a left chest pacemaker, with an orphaned lead as well as epicardial leads. Surgical clips are seen in the left axilla. The heart is borderline enlarged. The lungs demonstrate possible hazy infiltrate in left perihilar region Impression: Possible left perihilar infiltrate Borderline cardiomegaly Other findings as noted 01/12 - chest x-ray - Comparison: 01/10/2019 Findings: The heart is enlarged. There is patchy parenchymal opacity in the left suprahilar region which is not evident previously. There is equivocal minimal interstitial congestive change. The lungs and pleural spaces are otherwise grossly clear, although a pacemaker obscures much of the left lung. Surgical clips are seen in the left chest wall Impression: New or increased patchy left suprahilar opacity Equivocal minimal interstitial congestion Chest x-ray - 01/14/19 - Findings: Again demonstrated is a left chest AICD with epicardial leads. Surgical clips are seen in the left axilla. The heart is enlarged. The lungs and pleural spaces are clear. There is a right arm PICC Impression: No acute process Cardiomegaly Other findings as noted Microbiology Date/Time Source Procedure Growth Status 01/06/19 17:25 Blood Blood Culture - Final NO GROWTH AFTER 5 DAYS Complete 01/08/19 07:00 Sputum Induced Gram Stain - Final Complete 01/08/19 07:00 Sputum Culture - Final Staphylococcus Aureus Complete 01/07/19 11:30 Urine,Clean Catch Urine Culture - Final Escherichia Coli Complete 01/06/19 18:10 Rectum VRE Culture - Final NO VANCOMYCIN RESISTANT ENTEROCOCCUS ... Complete 01/06/19 18:10 Rectum - Final NO CARBAPENEM-RESISTANT ENTEROBACTERI... Complete Labs Test 01/18/19 06:00 White Blood Count 5.4 K/UL (4.8-10.8) Red Blood Count 2.38 M/UL (4.20-5.40) Hemoglobin 7.6 G/DL (12.0-16.0) Hematocrit 23.4 % (37.0-47.0) Mean Corpuscular Volume 98 FL (80-99) Mean Corpuscular Hemoglobin 31.8 PG (27.0-31.0) Mean Corpuscular Hemoglobin Concent 32.3 G/DL (32.0-36.0) Red Cell Distribution Width 16.0 % (11.6-14.8) Platelet Count 169 K/UL (150-450) Mean Platelet Volume 7.8 FL (6.5-10.1) Neutrophils (%) (Auto) % (45.0-75.0) Lymphocytes (%) (Auto) % (20.0-45.0) Monocytes (%) (Auto) % (1.0-10.0) Eosinophils (%) (Auto) % (0.0-3.0) Basophils (%) (Auto) % (0.0-2.0) Differential Total Cells Counted 100 Neutrophils % (Manual) 87 % (45-75) Lymphocytes % (Manual) 7 % (20-45) Monocytes % (Manual) 4 % (1-10) Eosinophils % (Manual) 2 % (0-3) Basophils % (Manual) 0 % (0-2) Band Neutrophils 0 % (0-8) Platelet Estimate Adequate Platelet Morphology Normal Anisocytosis 1+ Macrocytosis 1+ [place] Cells 1+ Sodium Level 136 MMOL/L (136-145) Potassium Level 3.6 MMOL/L (3.5-5.1) Chloride Level 105 MMOL/L (98-107) Carbon Dioxide Level 25 MMOL/L (21-32) Anion Gap 6 mmol/L (5-15) Blood Urea Nitrogen 13 mg/dL (7-18) Creatinine 1.1 MG/DL (0.55-1.30) Estimat Glomerular Filtration Rate mL/min (>60) Glucose Level 126 MG/DL (74-106) Uric Acid 5.2 MG/DL (2.6-7.2) Calcium Level 8.9 MG/DL (8.5-10.1) Phosphorus Level 2.4 MG/DL (2.5-4.9) Magnesium Level 1.7 MG/DL (1.8-2.4) Total Bilirubin 0.4 MG/DL (0.2-1.0) Direct Bilirubin 0.1 MG/DL (0.0-0.3) Aspartate Amino Transf (AST/SGOT) 28 U/L (15-37) Alanine Aminotransferase (ALT/SGPT) 6 U/L (12-78) Alkaline Phosphatase 89 U/L (46-116) Total Protein 5.4 G/DL (6.4-8.2) Albumin 1.6 G/DL (3.4-5.0) Current Medications Medications (Trade) Dose Ordered Sig/Nuria Route PRN Reason Start Time Stop Time Status Last Admin Dose Admin Carvedilol (Coreg) 3.125 mg EVERY 12 HOURS ORAL 01/13/19 21:00 02/12/19 20:59 01/19/19 08:29 Cefazolin Sodium 1 gm/Dextrose 55 ml @ 110 mls/hr Q8H IVPB 01/15/19 16:00 01/20/19 23:59 01/19/19 15:22 Chlorhexidine Gluconate (Kaylee-Hex 2%) 1 applic DAILY@2000 TOPIC 01/13/19 20:00 02/12/19 19:59 01/18/19 21:26 Dextrose 1,000 ml @ 40 mls/hr Q24H IV 01/16/19 18:00 02/15/19 17:59 01/19/19 09:57 Dextrose (Dextrose 50%) 25 ml Q30M PRN IV Hypoglycemia 01/13/19 04:00 02/05/19 18:59 Dextrose (Dextrose 50%) 50 ml Q30M PRN IV Hypoglycemia 01/13/19 04:00 02/05/19 18:59 Metronidazole 100 ml @ 100 mls/hr Q8HR IVPB 01/13/19 06:00 01/20/19 23:59 01/19/19 13:42 Ninfa Vences MD Jan 19, 2019 16:03
--- NOTE | 2019-01-19 16:52 | NUR ---
Social Service Note SW spoke with patient's Jasper Larson [phone] regarding patient's treatment plan of care. confirms he doesn't want a feeding tube inserted. is aware patient is only eating 25%. Patient is agreeable to hospice in SNF. Patient has been a resident of [facility] since 12/23/18. 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 Patient doesn't have medi-tio and may not be able to receive hospice in SNF due to no coverage for room and board. OFELIA attempting to reach insurance CM to discuss SNF benefits. Referral faxed to Arielle at [facility]. No beds today will follow up in AM. Will continue to follow up.
--- NOTE | 2019-01-19 17:01 | General Progress Note ---
Assessment/Plan Assessment/Plan #Severe Sepsis #MSSA pneumonia, possibly due to aspiration #E. coli UTI #Acute metabolic encephalopathy superimposed on severe dementia -continue antibiotics per ID -aspiration precautions -pt pulled out NGT, cont liquify pureed -family will consider PEG placement - tried to call daughter qasim Cisneros [phone] , unable to reach #Hypernatremia -resolved -monitor BMP -Nephrology following #Chronic sCHF s/p AICD #Atrial fibrillation #HTN #CAD -HTN controlled -Continue Coreg -Cardiology eval appreciated -not on AC due to thrombocytopenia VTE PPx Heparin SC DNR/DNI Subjective Allergies: Coded Allergies: No Known Allergies (Unverified , 01/06/19) Subjective No acute overnight events, has no complaints, tried to call daughter qasim Solis0Simeon, unable to reach Objective Last 24 Hour Vital Signs Date Time Temp Pulse Resp B/P (MAP) Pulse Ox O2 Delivery O2 Flow Rate FiO2 01/19/19 16:00 98.1 80 17 127/63 (84) 97 01/19/19 12:00 97.2 86 18 141/69 (93) 98 01/19/19 09:00 Room Air 01/19/19 08:29 73 137/67 01/19/19 08:00 98.2 73 16 137/67 (90) 97 01/19/19 04:45 98.7 82 18 132/85 (101) 01/19/19 00:00 98.9 71 19 129/72 (91) 01/18/19 21:56 Nasal Cannula 2.0 01/18/19 21:26 89 136/85 01/18/19 20:00 98.7 92 18 135/80 (98) Intake and Output 01/18/19 01/19/19 18:59 06:59 Intake Total 935.0 ml 1275 ml Output Total 1100 ml 900 ml Balance -165.0 ml 375 ml Intake Oral 100 ml IV Total 935.0 ml 160 ml Tube Feeding 15 ml Other 1000 ml Output Urine Total 1100 ml 900 ml # Voids 3 # Bowel Movements 1 Height (Feet): 5 Height (Inches): 2.00 Weight (Pounds): 200 Objective General: alert, cooperative, no distress, appears stated age Head: normocephalic, without obvious abnormality, atraumatic Eyes: conjunctivae/corneas clear. PERRL, EOM's intact Throat: lips, mucosa, and tongue normal. MMM Neck: supple, symmetrical, trachea midline, and no JVD Lungs: clear to auscultation bilaterally Heart: regular rate and rhythm, S1, S2 normal, no murmur, click, rub or gallop Abdomen: soft, non-tender, non-distended, bowel sounds normal; no masses or organomegaly Extremities: extremities normal, atraumatic, no cyanosis or edema Pulses: 2+ and symmetric Skin: skin color, texture, turgor normal; no rashes or lesions Neurologic: grossly normal, no focal deficits Tamanna Ontiveros MD Jan 19, 2019 17:01
--- NOTE | 2019-01-19 17:48 | General Progress Note ---
Assessment/Plan Assessment/Plan Assessment/Plan: # Severe Pancytopenia -- multiple etiologies could be related to underlying liver disease, medication-induced, infection versus viral syndrome, ID with abx now --> peripheral smear has been ordered and does not show significant abnormalities, however concerning Ca++ elevated --> SPEP is negative for bands --> Continue to monitor for improvement, trend cbc --> Hep panel and HIV are both negative --> US abd ordered to r/o cirrhosis and hepatosplenomegaly does not show it --> consider other causes, infections that could contribute --> reverse isolation if ANC is <2000 --> Give neupogen if ANC <1000 --> Transfuse if hgb <7, with 1 unit prbc --> consider bone marrow biopsy in future, since uptrending plts, can consider as outpatient # Coagulation defect, unspecified (D68.9) aka coagulopathy, multifactorial usually related to poor PO intake versus medications, versus hepatitis v cirrhosis --> administer Vitamin K if patient is bleeding or FFP if the INR is >10 --> hold off on ffp unless active procedure/bleeding, first begin with vit K 10 --> mixing study as needed # Severe Sepsis woth likely hcap --> on abx as per ID team # Acute metabolic encephalopathy superimposed on severe dementia --> on IV antibiotics to vanco and meropenem--> cefazolin --> check blood cultures, serial lactate and PCT # Hypernatremia --> on fluids as per nephro # Chronic sCHF s/p AICD --> off anticoagulation, reviewed recs of Dr. Hi --> okay to restart given potentially benefit outweighs risk # Atrial fibrillation # VINH --> currently improving The timing of this note does not necessarily reflect the time of the patient was seen. Greatly appreciate consultation! Subjective Allergies: Coded Allergies: No Known Allergies (Unverified , 01/06/19) Subjective 01/08: pending lab workup, us of the abd pending, spep and dic panel pending 01/10: Seen by bedside, remains lethargic, no acute distress, plt remains low at 46 01/11: resting in bed, no acute distress, plt trending down 38 01/12: awake, comfortable, no acute distress noted, plt trending up 01/13: seen by bedside, awake, comfortable, no acute distress. 01/14: NG tube insertion, Pt is lethargic, plt trending up, hgb 7.7 01/15: lethargic, on 2L NC, no events, pending cbc today 01/17: plts are up trending, hgb 7.6, no events 01/18: seen by bedside, hgb 7.6, plt trending up, no events Objective Last 24 Hour Vital Signs Date Time Temp Pulse Resp B/P (MAP) Pulse Ox O2 Delivery O2 Flow Rate FiO2 01/19/19 16:00 98.1 80 17 127/63 (84) 97 01/19/19 12:00 97.2 86 18 141/69 (93) 98 01/19/19 09:00 Room Air 01/19/19 08:29 73 137/67 01/19/19 08:00 98.2 73 16 137/67 (90) 97 01/19/19 04:45 98.7 82 18 132/85 (101) 01/19/19 00:00 98.9 71 19 129/72 (91) 01/18/19 21:56 Nasal Cannula 2.0 01/18/19 21:26 89 136/85 01/18/19 20:00 98.7 92 18 135/80 (98) Intake and Output 01/18/19 01/19/19 18:59 06:59 Intake Total 935.0 ml 1275 ml Output Total 1100 ml 900 ml Balance -165.0 ml 375 ml Intake Oral 100 ml IV Total 935.0 ml 160 ml Tube Feeding 15 ml Other 1000 ml Output Urine Total 1100 ml 900 ml # Voids 3 # Bowel Movements 1 Height (Feet): 5 Height (Inches): 2.00 Weight (Pounds): 200 Objective PE General Appearance: lethargic ++2l NC Lines, tubes and drains: peripheral HEENT: normocephalic, atraumatic. NG tube insertion Neck: normal alignment Respiratory/Chest: lungs clear, normal breath sounds Cardiovascular/Chest: normal peripheral pulses, normal rate Abdomen: non tender, soft, no organomegaly Extremities: non-tender, normal inspection : Blane Peralta MD Jan 19, 2019 17:48
--- NOTE | 2019-01-19 17:49 | NUR ---
NURSE NOTES: pt has skin tear on her left thigh and left groin, wound nurse visited pt and gave some recommendation " apply triad paste to perineum & medial and posterior aspects of left thighs and buttocks, apply cavilon to left hallux and cover with Optifoam dressing. change q7days and prn, apply Optifoam to skin tear medial left thigh; change q3days and prn "and Dr HELM ordered the recommendations. will continue to monitor.
--- NOTE | 2019-01-19 18:49 | Cardiac Electrophysiology PN ---
Assessment/Plan Assessment/Plan 1. Atrial fibrillation. On Coreg and off anticoagulation for thrombocytopenia 2. Status post Medtronic biventricular ICD. No shocks 3. Congestive heart failure.BNP > 7200. EF 35%. 4. Severe hypernatremia and renal failure. On IV fluids per Dr. Wells. 5. History of hypertension. On Coreg 6. MRSA PNA on Abx 7. Altered mental status. 8. Thrombocytopenia. 9. Hx of CVA with dysphasia DW RN and Subjective Subjective No significant change. DC planning to home pending Objective Last 24 Hour Vital Signs Date Time Temp Pulse Resp B/P (MAP) Pulse Ox O2 Delivery O2 Flow Rate FiO2 01/19/19 16:00 98.1 80 17 127/63 (84) 97 01/19/19 12:00 97.2 86 18 141/69 (93) 98 01/19/19 09:00 Room Air 01/19/19 08:29 73 137/67 01/19/19 08:00 98.2 73 16 137/67 (90) 97 01/19/19 04:45 98.7 82 18 132/85 (101) 01/19/19 00:00 98.9 71 19 129/72 (91) 01/18/19 21:56 Nasal Cannula 2.0 01/18/19 21:26 89 136/85 01/18/19 20:00 98.7 92 18 135/80 (98) Intake and Output 01/18/19 01/19/19 19:00 07:00 Intake Total 975.0 ml 1235 ml Output Total 1100 ml 900 ml Balance -125.0 ml 335 ml Intake Oral 100 ml IV Total 975.0 ml 120 ml Tube Feeding 15 ml Other 1000 ml Output Urine Total 1100 ml 900 ml # Voids 3 # Bowel Movements 1 Objective HEAD AND NECK: Mild JVD.NG tube in LUNGS: Decreased breath sounds. CARDIOVASCULAR: Irregular S1 and S2 with no gallop. Defibrillator in left subclavian. ABDOMEN: Soft. EXTREMITIES: No pitting edema. Gabe Hi MD Jan 19, 2019 18:49
--- NOTE | 2019-01-19 19:17 | NUR ---
HAND-OFF: Report given to RADAMES NATH.
--- NOTE | 2019-01-19 19:25 | NUR ---
NURSE NOTES: Received patient in bed, asleep, patient is confused, responsive to verbal and tactile stimuli, no acute distress noted, call light within reach, bed is in low position, locked and alarm is on, will continue to monitor for safety and comfort.
[2019-01-19] MEDS: Dyna-Hex 2% Top Sol 2oz TOPIC SCH (20:00)
[2019-01-19 20:57] VITALS: BP 129/98
[2019-01-20] MEDS: ceFAZolin sod 1 GM in D5W 55 ML IVPB SCH ×3 (00:45→16:15)
[2019-01-20 00:56] VITALS: BP 120/68
[2019-01-20 04:00] VITALS: BP 123/68
--- NOTE | 2019-01-20 07:26 | NUR ---
HAND-OFF: Report given to Yair CRUM.
--- NOTE | 2019-01-20 07:40 | NUR ---
NURSE NOTES: Received patient in bed, arousable to name and shaking. not in acute respiratory/cardiac distress. Breathing is even and unlabored. No s/s of pain or discomfort per FLACC pain scale. PICC line intact, no /s of infiltration. On P200 mattress, heels are floated on pillow to off the load. Bed is is lowest position and locked. Will continue plan of care.
[2019-01-20 08:00] VITALS: BP 130/73
--- NOTE | 2019-01-20 10:24 | NUR ---
*-* INSURANCE *-* UPDATED CLINICALS AND REVIEWS HAVE BEEN FAXED TO: [place]: ROCAEL F:[phone] P:[phone]
[2019-01-20 10:39] LABS: PHOSPHORUS 2.5 MG/DL (2.5-4.9)
--- NOTE | 2019-01-20 11:25 | Infectious Diseases Prog Note ---
Assessment/Plan Assessment/Plan ASSESSMENT AND PLAN: 1. e.coli uti, staph aureus pna/MSSA, possible aspiration pna with jennifer-hilar infiltrate, sepsis, sirs, leukopenia, hypothermia, ams/lethargy - ancef and flagyl - finish course, last day antibiotics today - monitor off abx - poor oral intake - f/u on labs, monitor chest x-ray - last chest x-ray nad 2. The patient has severe hypernatremia. 3. Dehydration. 4. Acute kidney injury. 5. Elevated creatinine. 6. Intravenous fluids. 7. Hypothermia. 8. Pancytopenia. Workup per Hematology/Oncology. 9. Hypertension. 10. Coronary artery disease. 11. Congestive heart failure. 12. Automatic implanted cardioverter. 13. Subdural hematoma. 14. Severe dementia. 15. Aspiration risk. 16. No known drug allergies. 17. Social history is negative. 18. Family history is noncontributory. 19. MAR was noted. 20. Case was discussed with RN. 21. Encephalopathy. 22. Skin care protocol. 23. The patient is DNR/DNI. 24. aspiration precautions 25. mrsa colonization 26. wound care per protocol - sacral wound noted and not acutely infected Subjective Constitutional: Denies: fever HEENT: Denies: congestion Respiratory: Denies: shortness of breath Cardiovascular: Denies: chest pain Gastrointestinal/Abdominal: Denies: nausea, vomiting, diarrhea Genitourinary: Reports: other - + pendleton Neurologic: Denies: headache Psychiatric: Reports: other - na Skin: Denies: rash Hematologic: Denies: bleeding Musculoskeletal: Denies: pain Allergies: Coded Allergies: No Known Allergies (Unverified , 01/06/19) Objective Vital Signs Last 24 Hour Vital Signs Date Time Temp Pulse Resp B/P (MAP) Pulse Ox O2 Delivery O2 Flow Rate FiO2 01/20/19 09:32 70 130/73 01/20/19 09:00 Nasal Cannula 2.0 01/20/19 08:00 97.5 70 16 130/73 (92) 97 01/20/19 04:00 98.0 72 20 123/68 (86) 01/20/19 00:56 98.4 98 18 120/68 (85) 01/19/19 21:13 Nasal Cannula 2.0 01/19/19 20:57 98.0 72 20 129/98 (108) 01/19/19 20:46 87 127/89 01/19/19 16:00 98.1 80 17 127/63 (84) 97 01/19/19 12:00 97.2 86 18 141/69 (93) 98 Height (Feet): 5 Height (Inches): 2.00 Weight (Pounds): 200 General Appearance: no acute distress HEENT: normocephalic, atraumatic, anicteric, mucous membranes moist Respiratory/Chest: lungs clear, normal breath sounds, no respiratory distress, no accessory muscle use Cardiovascular: normal rate, regular rhythm, no gallop/murmur, no JVD Abdomen: normal bowel sounds, soft, non tender, no organomegaly, non distended Genitourinary: other - + pendleton - urine clear Extremities: no cyanosis Skin: no rash 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 Surgical clips are seen in the left axilla. The heart is borderline enlarged. The lungs demonstrate possible hazy infiltrate in left perihilar region Impression: Possible left perihilar infiltrate Borderline cardiomegaly Other findings as noted 01/12 - chest x-ray - Comparison: 01/10/2019 Findings: The heart is enlarged. There is patchy parenchymal opacity in the left suprahilar region which is not evident previously. There is equivocal minimal interstitial congestive change. The lungs and pleural spaces are otherwise grossly clear, although a pacemaker obscures much of the left lung. Surgical clips are seen in the left chest wall Impression: New or increased patchy left suprahilar opacity Equivocal minimal interstitial congestion Chest x-ray - 01/14/19 - Findings: Again demonstrated is a left chest AICD with epicardial leads. Surgical clips are seen in the left axilla. The heart is enlarged. The lungs and pleural spaces are clear. There is a right arm PICC Impression: No acute process Cardiomegaly Other findings as noted Microbiology Date/Time Source Procedure Growth Status 01/06/19 17:25 Blood Blood Culture - Final NO GROWTH AFTER 5 DAYS Complete 01/08/19 07:00 Sputum Induced Gram Stain - Final Complete 01/08/19 07:00 Sputum Culture - Final Staphylococcus Aureus Complete 01/07/19 11:30 Urine,Clean Catch Urine Culture - Final Escherichia Coli Complete 01/06/19 18:10 Rectum VRE Culture - Final NO VANCOMYCIN RESISTANT ENTEROCOCCUS ... Complete 01/06/19 18:10 Rectum - Final NO CARBAPENEM-RESISTANT ENTEROBACTERI... Complete Laboratory Tests Test 01/20/19 10:00 Phosphorus Level 2.5 MG/DL (2.5-4.9) Magnesium Level 1.8 MG/DL (1.8-2.4) wbc - 5.4 hgb - 7.6 cr - 1.1 Current Medications Medications (Trade) Dose Ordered Sig/Nuria Route PRN Reason Start Time Stop Time Status Last Admin Dose Admin Carvedilol (Coreg) 3.125 mg EVERY 12 HOURS ORAL 01/13/19 21:00 02/12/19 20:59 01/20/19 09:32 Cefazolin Sodium 1 gm/Dextrose 55 ml @ 110 mls/hr Q8H IVPB 01/15/19 16:00 01/20/19 23:59 01/20/19 09:37 Chlorhexidine Gluconate (Kaylee-Hex 2%) 1 applic DAILY@2000 TOPIC 01/13/19 20:00 02/12/19 19:59 01/18/19 21:26 Dextrose 1,000 ml @ 40 mls/hr Q24H IV 01/16/19 18:00 02/15/19 17:59 01/19/19 09:57 Dextrose (Dextrose 50%) 25 ml Q30M PRN IV Hypoglycemia 01/13/19 04:00 02/05/19 18:59 Dextrose (Dextrose 50%) 50 ml Q30M PRN IV Hypoglycemia 01/13/19 04:00 02/05/19 18:59 Metronidazole 100 ml @ 100 mls/hr Q8HR IVPB 01/13/19 06:00 01/20/19 23:59 01/20/19 06:23 Ninfa Vences MD Jan 20, 2019 11:25
--- NOTE | 2019-01-20 11:31 | NUR ---
Social Service Note Follow up call placed to Arielle at [facility] [phone], currently no beds. Unable to reach insurance [facility] to obtain additional contacted list for placement. Will follow up.
[2019-01-20 12:00] VITALS: BP 124/64
--- NOTE | 2019-01-20 12:41 | NUR ---
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
--- NOTE | 2019-01-20 14:41 | NUR ---
Social Service Note OFELIA spoke with Alexandra [phone] at [facility] who provided the contact nurse to assist with dc planning, Chika [phone]. OFELIA left a message for Chika, awaiting return call.
--- NOTE | 2019-01-20 15:17 | Nephrology Progress Note ---
Assessment/Plan Problem List: (1) Acute renal failure Assessment: resolving (2) Dehydration (3) Hypernatremia (4) Anemia Assessment acute Renal Failure Cr lowering Sepsis / UTI / Pneumonia Acute metabolic Encephalopathy Hypernatremia AICD AT FIB CAD HTN presents with Low BP Anemia DNR DNI Plan k Phos IV as needed down on IV fluids watch for chf pendleton hold mind altering meds protonix IV DC Motrin !!! Subjective ROS Limited/Unobtainable: No Constitutional: Reports: malaise Objective Objective Last 24 Hour Vital Signs Date Time Temp Pulse Resp B/P (MAP) Pulse Ox O2 Delivery O2 Flow Rate FiO2 01/20/19 12:00 97.5 71 20 124/64 (84) 99 01/20/19 09:32 70 130/73 01/20/19 09:00 Nasal Cannula 2.0 01/20/19 08:00 97.5 70 16 130/73 (92) 97 01/20/19 04:00 98.0 72 20 123/68 (86) 01/20/19 00:56 98.4 98 18 120/68 (85) 01/19/19 21:13 Nasal Cannula 2.0 01/19/19 20:57 98.0 72 20 129/98 (108) 01/19/19 20:46 87 127/89 01/19/19 16:00 98.1 80 17 127/63 (84) 97 Intake and Output 01/19/19 01/20/19 18:59 06:59 Intake Total 1130 ml 360 ml Output Total 870 ml 900 ml Balance 260 ml -540 ml Intake Oral 100 ml IV Total 530 ml 360 ml Other 500 ml Output Urine Total 870 ml 900 ml Laboratory Tests 01/20/19 10:00: Phosphorus Level 2.5, Magnesium Level 1.8 Height (Feet): 5 Height (Inches): 2.00 Weight (Pounds): 200 General Appearance: no apparent distress Cardiovascular: normal rate Respiratory/Chest: decreased breath sounds Abdomen: distended Objective no change Noe Wells MD Jan 20, 2019 15:17
[2019-01-20 16:00] VITALS: BP 126/64
--- NOTE | 2019-01-20 16:30 | NUR ---
*-* DISCHARGE PLANNING *-* PATIENT HAS BEEN REFERRED TO THE FOLLOWING FACILITIES: 1. [place] P:[phone] F: [phone] 2. [facility] P:[phone] F:[phone] 3. [facility] P:[phone] F:[phone] 4. [place] P:[phone] F:[phone] 5. [facility] P:[phone] F:[phone] 6. [facility] P:[phone] F:[phone] 7. [facility] P:[phone] F:[phone] 8. [facility] P:[phone] F:[phone] Addendum: 01/21/19 at 1701 by CRISTA ROTHMAN CM 1. [place] S/W [facility] NO FEMALE BEDS AVAILABLE 2. [facility] SPOKE WITH ADMITTING ( THEY STATE THEY DONOT HAVE AN ADMISSION DEPT) NO BEDS AVAILABLE 3. [facility] S/W JULIA NOT CONTRACTED 4. [facility] WITH [facility] TO CALL US. 5. [facility] S/W [facility] NO FEMALE BEDS 6. [facility] S/W [place] SHE NEEDED ADDITIONAL INFO..INFO WAS PROVIDED SHE WILL CALL US BACK. 7. [facility] S/W J[facility] THEY WILL HAVE TO CALL US BACK 8. [facility] THEY HAVE REQUESTED TO BE FAXED TO: F:[phone]
--- NOTE | 2019-01-20 17:27 | General Progress Note ---
Assessment/Plan Assessment/Plan Assessment/Plan: # Severe Pancytopenia -- multiple etiologies could be related to underlying liver disease, medication-induced, infection versus viral syndrome, ID with abx now --> peripheral smear has been ordered and does not show significant abnormalities, however concerning Ca++ elevated --> SPEP is negative for bands --> Continue to monitor for improvement, trend cbc --> Hep panel and HIV are both negative --> US abd ordered to r/o cirrhosis and hepatosplenomegaly does not show it --> consider other causes, infections that could contribute --> reverse isolation if ANC is <2000 --> Give neupogen if ANC <1000 --> Transfuse if hgb <7, with 1 unit prbc --> plts have improved, thus was likely reactive process # Coagulation defect, unspecified (D68.9) aka coagulopathy, multifactorial usually related to poor PO intake versus medications, versus hepatitis v cirrhosis --> administer Vitamin K if patient is bleeding or FFP if the INR is >10 --> hold off on ffp unless active procedure/bleeding, first begin with vit K 10 --> mixing study as needed # Severe Sepsis woth likely hcap --> on abx as per ID team --> 01/20 is last day of abx # Acute metabolic encephalopathy superimposed on severe dementia --> on IV antibiotics to vanco and meropenem--> cefazolin --> check blood cultures, serial lactate and PCT # Hypernatremia --> on fluids as per nephro # Chronic sCHF s/p AICD --> off anticoagulation, reviewed recs of Dr. Hi --> okay to restart given potentially benefit outweighs risk # Atrial fibrillation # VINH --> currently improving The timing of this note does not necessarily reflect the time of the patient was seen. Greatly appreciate consultation! Subjective Constitutional: Denies: no symptoms, chills, diaphoresis, fever, malaise, weakness, other HEENT: Denies: no symptoms, eye pain, blurred vision, tearing, double vision, ear pain, ear discharge, nose pain, nose congestion, throat pain, throat swelling, mouth pain, mouth swelling, other Cardiovascular: Denies: no symptoms, chest pain, edema, irregular heart rate, lightheadedness, palpitations, syncope, other Respiratory: Denies: no symptoms, cough, orthopnea, shortness of breath, SOB with excertion, SOB at rest, sputum, stridor, wheezing, other Gastrointestinal/Abdominal: Denies: no symptoms, abdomen distended, abdominal pain, black stools, tarry stools, blood in stool, constipated, diarrhea, difficulty swallowing, nausea, poor appetite, poor fluid intake, rectal bleeding , vomiting, other Genitourinary: Denies: no symptoms, burning, discharge, frequency, flank pain, hematuria, incontinence, pain, urgency, other Neurologic/Psychiatric: Denies: no symptoms, anxiety, depressed, emotional problems, headache, numbness, paresthesia, pre-existing deficit, seizure, tingling, tremors, weakness, other Endocrine: Denies: no symptoms, excessive sweating, flushing, intolerance to cold, intolerance to heat, increased hunger, increased thirst, increased urine, unexplained weight gain, unexplained weight loss, other Allergies: Coded Allergies: No Known Allergies (Unverified , 01/06/19) Subjective 01/08: pending lab workup, us of the abd pending, spep and dic panel pending 01/10: Seen by bedside, remains lethargic, no acute distress, plt remains low at 46 01/11: resting in bed, no acute distress, plt trending down 38 01/12: awake, comfortable, no acute distress noted, plt trending up 01/13: seen by bedside, awake, comfortable, no acute distress. 01/14: NG tube insertion, Pt is lethargic, plt trending up, hgb 7.7 01/15: lethargic, on 2L NC, no events, pending cbc today 01/17: plts are up trending, hgb 7.6, no events 01/18: seen by bedside, hgb 7.6, plt trending up, no events 01/20: out of the icu, completing abx today, feeling better, plt better Objective Last 24 Hour Vital Signs Date Time Temp Pulse Resp B/P (MAP) Pulse Ox O2 Delivery O2 Flow Rate FiO2 01/20/19 16:00 97.5 72 19 126/64 (84) 99 01/20/19 12:00 97.5 71 20 124/64 (84) 99 01/20/19 09:32 70 130/73 01/20/19 09:00 Nasal Cannula 2.0 01/20/19 08:00 97.5 70 16 130/73 (92) 97 01/20/19 04:00 98.0 72 20 123/68 (86) 01/20/19 00:56 98.4 98 18 120/68 (85) 01/19/19 21:13 Nasal Cannula 2.0 01/19/19 20:57 98.0 72 20 129/98 (108) 01/19/19 20:46 87 127/89 Intake and Output 01/19/19 01/20/19 18:59 06:59 Intake Total 1130 ml 360 ml Output Total 870 ml 900 ml Balance 260 ml -540 ml Intake Oral 100 ml IV Total 530 ml 360 ml Other 500 ml Output Urine Total 870 ml 900 ml Laboratory Tests 01/20/19 10:00: Phosphorus Level 2.5, Magnesium Level 1.8 Height (Feet): 5 Height (Inches): 2.00 Weight (Pounds): 200 Objective PE General Appearance: lethargic ++2l NC Lines, tubes and drains: peripheral HEENT: normocephalic, atraumatic. NG tube insertion Neck: normal alignment Respiratory/Chest: lungs clear, normal breath sounds Cardiovascular/Chest: normal peripheral pulses, normal rate Abdomen: non tender, soft, no organomegaly Extremities: non-tender, normal inspection : Blane Peralta MD Jan 20, 2019 17:27
--- NOTE | 2019-01-20 18:12 | Cardiac Electrophysiology PN ---
Assessment/Plan Assessment/Plan 1. Atrial fibrillation. On Coreg and off anticoagulation for thrombocytopenia 2. Status post [employer] biventricular ICD. No shocks 3. Congestive heart failure.BNP > 7200. EF 35%. 4. Severe hypernatremia and renal failure. On IV fluids per Dr. Wells. 5. History of hypertension. On Coreg 6. MRSA PNA on Abx 7. Altered mental status. 8. Thrombocytopenia. 9. Hx of CVA with dysphasia DW RN and Subjective Subjective No significant change. DC planning to home Objective Last 24 Hour Vital Signs Date Time Temp Pulse Resp B/P (MAP) Pulse Ox O2 Delivery O2 Flow Rate FiO2 01/20/19 16:00 97.5 72 19 126/64 (84) 99 01/20/19 12:00 97.5 71 20 124/64 (84) 99 01/20/19 09:32 70 130/73 01/20/19 09:00 Nasal Cannula 2.0 01/20/19 08:00 97.5 70 16 130/73 (92) 97 01/20/19 04:00 98.0 72 20 123/68 (86) 01/20/19 00:56 98.4 98 18 120/68 (85) 01/19/19 21:13 Nasal Cannula 2.0 01/19/19 20:57 98.0 72 20 129/98 (108) 01/19/19 20:46 87 127/89 Intake and Output 01/19/19 01/20/19 18:59 06:59 Intake Total 1130 ml 360 ml Output Total 870 ml 900 ml Balance 260 ml -540 ml Intake Oral 100 ml IV Total 530 ml 360 ml Other 500 ml Output Urine Total 870 ml 900 ml Laboratory Tests Test 01/20/19 10:00 Phosphorus Level 2.5 MG/DL (2.5-4.9) Magnesium Level 1.8 MG/DL (1.8-2.4) Objective HEAD AND NECK: Mild JVD. LUNGS: Decreased breath sounds. CARDIOVASCULAR: Irregular S1 and S2 with no gallop. Defibrillator in left subclavian. ABDOMEN: Soft. EXTREMITIES: No pitting edema. Gabe Hi MD Jan 20, 2019 18:12
--- NOTE | 2019-01-20 19:30 | NUR ---
HAND-OFF: Report given to
[2019-01-20 20:00] VITALS: BP 154/78
--- NOTE | 2019-01-20 20:16 | NUR ---
NURSE NOTES: Received patient asleep,comfortable.Kept clean and dry.
--- NOTE | 2019-01-20 20:45 | General Progress Note ---
Assessment/Plan Assessment/Plan #Severe Sepsis #MSSA pneumonia, possibly due to aspiration #E. coli UTI #Acute metabolic encephalopathy superimposed on severe dementia -continue antibiotics per ID - will complete course today -aspiration precautions -pt pulled out NGT, cont liquify pureed, able to eat with at bedside -family will consider PEG placement - tried to call daughter qasim Garcia [phone] , unable to reach #Hypernatremia -resolved -monitor BMP -Nephrology following #Chronic sCHF s/p AICD #Atrial fibrillation #HTN #CAD -HTN controlled -Continue Coreg -Cardiology eval appreciated -not on AC due to thrombocytopenia VTE PPx Heparin SC DNR/DNI Subjective Allergies: Coded Allergies: No Known Allergies (Unverified , 01/06/19) Subjective No acute overnight events, has no complaints, tried to call daughter qasim Cisneros- [phone], unable to reach Objective Last 24 Hour Vital Signs Date Time Temp Pulse Resp B/P (MAP) Pulse Ox O2 Delivery O2 Flow Rate FiO2 01/20/19 16:00 97.5 72 19 126/64 (84) 99 01/20/19 12:00 97.5 71 20 124/64 (84) 99 01/20/19 09:32 70 130/73 01/20/19 09:00 Nasal Cannula 2.0 01/20/19 08:00 97.5 70 16 130/73 (92) 97 01/20/19 04:00 98.0 72 20 123/68 (86) 01/20/19 00:56 98.4 98 18 120/68 (85) 01/19/19 21:13 Nasal Cannula 2.0 01/19/19 20:57 98.0 72 20 129/98 (108) 01/19/19 20:46 87 127/89 Intake and Output 01/19/19 01/20/19 18:59 06:59 Intake Total 1130 ml 360 ml Output Total 870 ml 900 ml Balance 260 ml -540 ml Intake Oral 100 ml IV Total 530 ml 360 ml Other 500 ml Output Urine Total 870 ml 900 ml Laboratory Tests 01/20/19 10:00: Phosphorus Level 2.5, Magnesium Level 1.8 Height (Feet): 5 Height (Inches): 2.00 Weight (Pounds): 200 Objective General: alert, cooperative, no distress, appears stated age Head: normocephalic, without obvious abnormality, atraumatic Eyes: conjunctivae/corneas clear. PERRL, EOM's intact Throat: lips, mucosa, and tongue normal. MMM Neck: supple, symmetrical, trachea midline, and no JVD Lungs: clear to auscultation bilaterally Heart: regular rate and rhythm, S1, S2 normal, no murmur, click, rub or gallop Abdomen: soft, non-tender, non-distended, bowel sounds normal; no masses or organomegaly Extremities: extremities normal, atraumatic, no cyanosis or edema Pulses: 2+ and symmetric Skin: skin color, texture, turgor normal; no rashes or lesions Neurologic: grossly normal, no focal deficits Tamanna Ontiveros MD Jan 20, 2019 20:45
[2019-01-20] MEDS: Dyna-Hex 2% Top Sol 2oz TOPIC SCH (20:47)
--- NOTE | 2019-01-20 22:40 | NUR ---
NURSE NOTES: Wound dressings clean,dry, and intact.
[2019-01-21] VITALS: BP 138/72
[2019-01-21 03:57] VITALS: BP 144/68
--- NOTE | 2019-01-21 07:30 | NUR ---
NURSE NOTES: Received pt from RADAMES SANCHEZ. Pt is orient x2. pt is in room air. No SOB or acute respiratory distress noted. pt has PICC VENESSA is running well. Pt has Bowens cath in place is running well. all needs attended, bed is locked and is in the lowest position. call light within easy reach. will continue to monitor.
--- NOTE | 2019-01-21 07:31 | NUR ---
HAND-OFF: Report given to Chito Benjamin RN.
[2019-01-21 07:45] LABS: HEMATOCRIT 25.2 % (37.0-47.0); HEMOGLOBIN 7.8 G/DL (12.0-16.0); MEAN CORPUSCULAR VOLUME 100 FL (80-99); PLATELET COUNT 186 K/UL (150-450); RED BLOOD COUNT 2.52 M/UL (4.20-5.40); RED CELL DISTRIBUTION WIDTH 16.3 % (11.6-14.8); WHITE BLOOD COUNT 5.1 K/UL (4.8-10.8)
[2019-01-21 08:00] VITALS: BP 129/69
[2019-01-21 08:11] LABS: ALANINE AMINOTRANSFERASE 14 U/L (12-78); ALBUMIN 1.8 G/DL (3.4-5.0); ALBUMIN/GLOBULIN RATIO 0.5 (1.0-2.7); ALKALINE PHOSPHATASE 93 U/L (46-116); ANION GAP 5 mmol/L (5-15); ASPARTATE AMINO TRANSFERASE 37 U/L (15-37); BILIRUBIN,TOTAL 0.3 MG/DL (0.2-1.0); BLOOD UREA NITROGEN 12 mg/dL (7-18); CALCIUM 8.5 MG/DL (8.5-10.1); CARBON DIOXIDE 26 MMOL/L (21-32); CHLORIDE 106 MMOL/L (98-107); SODIUM 137 MMOL/L (136-145)
[2019-01-21 08:16] LABS: PHOSPHORUS 2.2 MG/DL (2.5-4.9)
--- NOTE | 2019-01-21 10:56 | Diagnostic Imaging Report ---
Indication: Shortness of breath Technique: One view of the chest Comparison: 01/06/2019 Findings: Left chest AICD, right arm PICC again demonstrated. Interim development of small left pleural effusion. There may be some hazy infiltrate developing in the left perihilar region, although this is largely obscured by the pacemaker. The heart is enlarged.. Impression: New small left pleural effusion Possible left perihilar hazy infiltrate, also new
[2019-01-21 12:00] VITALS: BP 118/70
[2019-01-21] MEDS ORDERED: Sodium Phosphate 15 MM in NS 275 ML IVPB SCH (13:00)
--- NOTE | 2019-01-21 14:28 | NUR ---
RD ASSESSMENT & RECOMMENDATIONS SEE CARE ACTIVITY FOR COMPLETE ASSESSMENT DAILY ESTIMATED NEEDS: Needs based on Wound, obese 58.8kg adj 25-30 kcals/kg 0327-3060 total kcals 1.25-1.5 g protein/kg 74-88 g total protein 25-30 mL/kg 6710-0661 total fluid mLs NUTRITION DIAGNOSIS: 1) Increased kcal and protein needs r/t wound healing as evidenced by pt w/ sacral stage 2 per RN 2) Altered nutrition related lab values r/t water deficits, clinical condition, h/o DM as evidenced by pt adm w/ Na 165-> now normalized, elev BUN and creat, now both normalized, elev BGs (133 126, improved) . 3) Swallowing difficulty R/T dysphagia w/ h/o CVA, lethargy as evidenced by PATIENT CASE MANAGER initially recommended NPO, NGT was inserted, but s/p self removal of NGT, pt now back on liquify pureed, NTL diet. CURRENT DIET:LOW NA/ liquify pureed, NTL + Glucerna TID PO DIET RECOMMENDATIONS: Liberalized REGULAR w/ poor PO/ texture per PATIENT CASE MANAGER ADDITIONAL RECOMMENDATIONS: 1) RE-calibrate bed scale w/ added P200 mattress 2) Wound healing: Add SWAPNA BID, MVI x 1, Vit C 500mg QD Rec wound eval 3) Monitor BGs, need for hypoglycemic agent - h/o DM 4) Continue Glucerna TID
--- NOTE | 2019-01-21 14:51 | Infectious Diseases Prog Note ---
Assessment/Plan Assessment/Plan ASSESSMENT AND PLAN: 1. e.coli uti, staph aureus pna/MSSA, possible aspiration pna with jennifer-hilar infiltrate, sepsis, sirs, leukopenia, hypothermia, ams/lethargy - ancef and flagyl - continue for now - ? new infiltrate on chest x-ray with effusion, chest x-ray report noted - possible hospice/comfort care in discussion with Dr. Ontiveros - poor oral intake - f/u on labs, monitor chest x-ray - clinically seems stable, no sig sob or congestion 2. The patient has severe hypernatremia. 3. Dehydration. 4. Acute kidney injury. 5. Elevated creatinine. 6. Intravenous fluids. 7. Hypothermia. 8. Pancytopenia. Workup per Hematology/Oncology. 9. Hypertension. 10. Coronary artery disease. 11. Congestive heart failure. 12. Automatic implanted cardioverter. 13. Subdural hematoma. 14. Severe dementia. 15. Aspiration risk. 16. No known drug allergies. 17. Social history is negative. 18. Family history is noncontributory. 19. MAR was noted. 20. Case was discussed with RN. 21. Encephalopathy. 22. Skin care protocol. 23. The patient is DNR/DNI. 24. aspiration precautions 25. mrsa colonization 26. wound care per protocol - sacral wound noted and not acutely infected Subjective Constitutional: Reports: fatigue; Denies: fever HEENT: Denies: congestion Respiratory: Denies: shortness of breath Cardiovascular: Denies: chest pain Gastrointestinal/Abdominal: Denies: nausea, vomiting, diarrhea Genitourinary: Reports: other - + pendleton Neurologic: Denies: headache Psychiatric: Denies: depression Skin: Denies: rash Hematologic: Denies: bleeding Musculoskeletal: Denies: pain Allergies: Coded Allergies: No Known Allergies (Unverified , 01/06/19) Objective Vital Signs Last 24 Hour Vital Signs Date Time Temp Pulse Resp B/P (MAP) Pulse Ox O2 Delivery O2 Flow Rate FiO2 01/21/19 12:00 97.7 73 18 118/70 (86) 96 01/21/19 09:45 Nasal Cannula 2.0 28 01/21/19 09:45 96 Nasal Cannula 2.0 28 01/21/19 09:17 70 129/69 01/21/19 09:00 Room Air 01/21/19 08:00 97.9 70 18 129/69 (89) 96 01/21/19 03:57 97.3 71 20 144/68 (93) 96 01/21/19 00:00 97.9 78 20 138/72 (94) 96 01/20/19 21:00 Nasal Cannula 2.0 01/20/19 20:48 72 126/64 01/20/19 20:00 97.8 73 18 154/78 (103) 96 01/20/19 16:00 97.5 72 19 126/64 (84) 99 Height (Feet): 5 Height (Inches): 2.00 Weight (Pounds): 200 General Appearance: no acute distress HEENT: normocephalic, atraumatic, anicteric, mucous membranes moist Respiratory/Chest: lungs clear, normal breath sounds, no respiratory distress, no accessory muscle use, rhonchi - bilaterally - occasional Cardiovascular: normal rate, regular rhythm, no gallop/murmur, no JVD Abdomen: normal bowel sounds, soft, non tender, no organomegaly, non distended Genitourinary: other - + pendleton - urine slt cloudy Extremities: no cyanosis Skin: no rash Neurologic/Psychiatric: picker box operator II-XII grossly normal, alert, responsive Lymphatic: no neck adenopathy Musculoskeletal: no effusion Objective 01/06 - chest x-ray - Comparison: none Findings: There is a left chest pacemaker, with an orphaned lead as well as epicardial leads. Surgical clips are seen in the left axilla. The heart is borderline enlarged. The lungs demonstrate possible hazy infiltrate in left perihilar region Impression: Possible left perihilar infiltrate Borderline cardiomegaly Other findings as noted 01/12 - chest x-ray - Comparison: 01/10/2019 Findings: The heart is enlarged. There is patchy parenchymal opacity in the left suprahilar region which is not evident previously. There is equivocal minimal interstitial congestive change. The lungs and pleural spaces are otherwise grossly clear, although a pacemaker obscures much of the left lung. Surgical clips are seen in the left chest wall Impression: New or increased patchy left suprahilar opacity Equivocal minimal interstitial congestion Chest x-ray - 01/14/19 - Findings: Again demonstrated is a left chest AICD with epicardial leads. Surgical clips are seen in the left axilla. The heart is enlarged. The lungs and pleural spaces are clear. There is a right arm PICC Impression: No acute process Cardiomegaly Other findings as noted Chest x-ray - 01/21/19 Findings: Left chest AICD, right arm PICC again demonstrated. Interim development of small left pleural effusion. There may be some hazy infiltrate developing in the left perihilar region, although this is largely obscured by the pacemaker. The heart is enlarged.. Impression: New small left pleural effusion Possible left perihilar hazy infiltrate, also new Microbiology Date/Time Source Procedure Growth Status 01/06/19 17:25 Blood Blood Culture - Final NO GROWTH AFTER 5 DAYS Complete 01/08/19 07:00 Sputum Induced Gram Stain - Final Complete 01/08/19 07:00 Sputum Culture - Final Staphylococcus Aureus Complete 01/07/19 11:30 Urine,Clean Catch Urine Culture - Final Escherichia Coli Complete 01/06/19 18:10 Rectum VRE Culture - Final NO VANCOMYCIN RESISTANT ENTEROCOCCUS ... Complete 01/06/19 18:10 Rectum - Final NO CARBAPENEM-RESISTANT ENTEROBACTERI... Complete Laboratory Tests Test 01/21/19 05:00 White Blood Count 5.1 K/UL (4.8-10.8) Red Blood Count 2.52 M/UL (4.20-5.40) L Hemoglobin 7.8 G/DL (12.0-16.0) L Hematocrit 25.2 % (37.0-47.0) L Mean Corpuscular Volume 100 FL (80-99) H Mean Corpuscular Hemoglobin 31.0 PG (27.0-31.0) Mean Corpuscular Hemoglobin Concent 31.0 G/DL (32.0-36.0) L Red Cell Distribution Width 16.3 % (11.6-14.8) H Platelet Count 186 K/UL (150-450) Mean Platelet Volume 6.3 FL (6.5-10.1) L Neutrophils (%) (Auto) % (45.0-75.0) Lymphocytes (%) (Auto) % (20.0-45.0) Monocytes (%) (Auto) % (1.0-10.0) Eosinophils (%) (Auto) % (0.0-3.0) Basophils (%) (Auto) % (0.0-2.0) Differential Total Cells Counted 100 Neutrophils % (Manual) 82 % (45-75) H Lymphocytes % (Manual) 10 % (20-45) L Monocytes % (Manual) 6 % (1-10) Eosinophils % (Manual) 2 % (0-3) Basophils % (Manual) 0 % (0-2) Band Neutrophils 0 % (0-8) Platelet Estimate Adequate Platelet Morphology Normal Hypochromasia 1+ Anisocytosis 1+ Macrocytosis 1+ Sodium Level 137 MMOL/L (136-145) Potassium Level 4.0 MMOL/L (3.5-5.1) Chloride Level 106 MMOL/L (98-107) Carbon Dioxide Level 26 MMOL/L (21-32) Anion Gap 5 mmol/L (5-15) Blood Urea Nitrogen 12 mg/dL (7-18) Creatinine 1.0 MG/DL (0.55-1.30) Estimat Glomerular Filtration Rate mL/min (>60) Glucose Level 133 MG/DL (74-106) H Calcium Level 8.5 MG/DL (8.5-10.1) Phosphorus Level 2.2 MG/DL (2.5-4.9) L Magnesium Level 1.8 MG/DL (1.8-2.4) Total Bilirubin 0.3 MG/DL (0.2-1.0) Aspartate Amino Transf (AST/SGOT) 37 U/L (15-37) Alanine Aminotransferase (ALT/SGPT) 14 U/L (12-78) Alkaline Phosphatase 93 U/L (46-116) C-Reactive Protein, Quantitative 2.9 mg/dL (0.00-0.90) H Pro-B-Type Natriuretic Peptide 9253 pg/mL (0-125) H Total Protein 5.1 G/DL (6.4-8.2) L Albumin 1.8 G/DL (3.4-5.0) L Globulin 3.3 g/dL Albumin/Globulin Ratio 0.5 (1.0-2.7) L Current Medications Medications (Trade) Dose Ordered Sig/Nuria Route PRN Reason Start Time Stop Time Status Last Admin Dose Admin Carvedilol (Coreg) 3.125 mg EVERY 12 HOURS ORAL 01/13/19 21:00 02/12/19 20:59 01/21/19 09:17 Chlorhexidine Gluconate (Kaylee-Hex 2%) 1 applic DAILY@1999 TOPIC 01/13/19 20:00 02/12/19 19:59 01/20/19 20:47 Dextrose 1,000 ml @ 40 mls/hr Q24H IV 01/16/19 18:00 02/15/19 17:59 01/20/19 14:33 Dextrose (Dextrose 50%) 25 ml Q30M PRN IV Hypoglycemia 01/13/19 04:00 02/05/19 18:59 Dextrose (Dextrose 50%) 50 ml Q30M PRN IV Hypoglycemia 01/13/19 04:00 02/05/19 18:59 Sodium Phosphate 15 mm/Sodium Chloride 280 ml @ 70.273 mls/ hr ONCE IVPB 01/21/19 13:00 01/21/19 17:00 01/21/19 13:39 Ninfa Vences MD Jan 21, 2019 14:51
[2019-01-21 16:00] VITALS: BP 125/68
--- NOTE | 2019-01-21 16:07 | Nephrology Progress Note ---
Assessment/Plan Problem List: (1) Acute renal failure Assessment: resolving (2) Dehydration (3) Hypernatremia (4) Anemia Assessment acute Renal Failure Cr lowering Sepsis / UTI / Pneumonia Acute metabolic Encephalopathy Hypernatremia AICD AT FIB CAD HTN presents with Low BP Anemia DNR DNI Plan k Phos IV as needed down on IV fluids watch for chf pendleton hold mind altering meds protonix IV DC Motrin !!! Subjective ROS Limited/Unobtainable: No Constitutional: Reports: malaise Objective Objective Last 24 Hour Vital Signs Date Time Temp Pulse Resp B/P (MAP) Pulse Ox O2 Delivery O2 Flow Rate FiO2 01/21/19 12:00 97.7 73 18 118/70 (86) 96 01/21/19 09:45 Nasal Cannula 2.0 28 01/21/19 09:45 96 Nasal Cannula 2.0 28 01/21/19 09:17 70 129/69 01/21/19 09:00 Room Air 01/21/19 08:00 97.9 70 18 129/69 (89) 96 01/21/19 03:57 97.3 71 20 144/68 (93) 96 01/21/19 00:00 97.9 78 20 138/72 (94) 96 01/20/19 21:00 Nasal Cannula 2.0 01/20/19 20:48 72 126/64 01/20/19 20:00 97.8 73 18 154/78 (103) 96 Intake and Output 01/20/19 01/21/19 19:00 07:00 Intake Total 1050 ml 540 ml Output Total 850 ml 600 ml Balance 200 ml -60 ml Intake Oral 300 ml IV Total 750 ml 540 ml Output Urine Total 850 ml 600 ml Laboratory Tests 01/21/19 05:00: White Blood Count 5.1, Red Blood Count 2.52L, Hemoglobin 7.8L, Hematocrit 25.2L , Mean Corpuscular Volume 100H, Mean Corpuscular Hemoglobin 31.0, Mean Corpuscular Hemoglobin Concent 31.0L, Red Cell Distribution Width 16.3H, Platelet Count 186, Mean Platelet Volume 6.3L, Neutrophils (%) (Auto) , Lymphocytes (%) (Auto) , Monocytes (%) (Auto) , Eosinophils (%) (Auto) , Basophils (%) (Auto) , Differential Total Cells Counted 100, Neutrophils % ( Manual) 82H, Lymphocytes % (Manual) 10L, Monocytes % (Manual) 6, Eosinophils % ( Manual) 2, Basophils % (Manual) 0, Band Neutrophils 0, Platelet Estimate Adequate, Platelet Morphology Normal, Hypochromasia 1+, Anisocytosis 1+, Macrocytosis 1+, Sodium Level 137, Potassium Level 4.0, Chloride Level 106, Carbon Dioxide Level 26, Anion Gap 5, Blood Urea Nitrogen 12, Creatinine 1.0, Estimat Glomerular Filtration Rate , Glucose Level 133H, Calcium Level 8.5, Phosphorus Level 2.2L, Magnesium Level 1.8, Total Bilirubin 0.3, Aspartate Amino Transf (AST/SGOT) 37, Alanine Aminotransferase (ALT/SGPT) 14, Alkaline Phosphatase 93, C-Reactive Protein, Quantitative 2.9H, Pro-B-Type Natriuretic Peptide 9253H, Total Protein 5.1L, Albumin 1.8L, Globulin 3.3, Albumin/Globulin Ratio 0.5L Height (Feet): 5 Height (Inches): 2.00 Weight (Pounds): 200 General Appearance: no apparent distress Cardiovascular: normal rate Respiratory/Chest: decreased breath sounds Abdomen: soft Objective no change Noe Wells MD Jan 21, 2019 16:07
--- NOTE | 2019-01-21 16:20 | NUR ---
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 2.2 CXR Impression: New small left pleural effusion. Possible left perihilar hazy infiltrate, also new. IS:Carvedilol Sodium Phosphate IV MED/SURG STATUS
--- NOTE | 2019-01-21 16:35 | NUR ---
*-* INSURANCE *-* PATIENT HAS BEEN REFERRED TO: [facility] P:[phone] F:[phone]
--- NOTE | 2019-01-21 16:37 | General Progress Note ---
Assessment/Plan Assessment/Plan #Severe Sepsis #MSSA pneumonia, possibly due to aspiration #E. coli UTI #Acute metabolic encephalopathy superimposed on severe dementia -continue antibiotics per ID - will complete course today -aspiration precautions -pt pulled out NGT, cont liquify pureed, able to eat with at bedside -discussed with at bedside, does not want PEG, considering hospice, need to discuss with family #Hypernatremia -resolved -monitor BMP -Nephrology following #Chronic sCHF s/p AICD #Atrial fibrillation #HTN #CAD -HTN controlled -Continue Coreg -Cardiology eval appreciated -not on AC due to thrombocytopenia VTE PPx Heparin SC DNR/DNI Subjective Allergies: Coded Allergies: No Known Allergies (Unverified , 01/06/19) Subjective No acute overnight events, has no complaints, discussed with at bedside , does not want peg, considering hospice Objective Last 24 Hour Vital Signs Date Time Temp Pulse Resp B/P (MAP) Pulse Ox O2 Delivery O2 Flow Rate FiO2 01/21/19 12:00 97.7 73 18 118/70 (86) 96 01/21/19 09:45 Nasal Cannula 2.0 28 01/21/19 09:45 96 Nasal Cannula 2.0 28 01/21/19 09:17 70 129/69 01/21/19 09:00 Room Air 01/21/19 08:00 97.9 70 18 129/69 (89) 96 01/21/19 03:57 97.3 71 20 144/68 (93) 96 01/21/19 00:00 97.9 78 20 138/72 (94) 96 01/20/19 21:00 Nasal Cannula 2.0 01/20/19 20:48 72 126/64 01/20/19 20:00 97.8 73 18 154/78 (103) 96 Intake and Output 01/20/19 01/21/19 19:00 07:00 Intake Total 1050 ml 540 ml Output Total 850 ml 600 ml Balance 200 ml -60 ml Intake Oral 300 ml IV Total 750 ml 540 ml Output Urine Total 850 ml 600 ml Laboratory Tests 01/21/19 05:00: White Blood Count 5.1, Red Blood Count 2.52L, Hemoglobin 7.8L, Hematocrit 25.2L , Mean Corpuscular Volume 100H, Mean Corpuscular Hemoglobin 31.0, Mean Corpuscular Hemoglobin Concent 31.0L, Red Cell Distribution Width 16.3H, Platelet Count 186, Mean Platelet Volume 6.3L, Neutrophils (%) (Auto) , Lymphocytes (%) (Auto) , Monocytes (%) (Auto) , Eosinophils (%) (Auto) , Basophils (%) (Auto) , Differential Total Cells Counted 100, Neutrophils % ( Manual) 82H, Lymphocytes % (Manual) 10L, Monocytes % (Manual) 6, Eosinophils % ( Manual) 2, Basophils % (Manual) 0, Band Neutrophils 0, Platelet Estimate Adequate, Platelet Morphology Normal, Hypochromasia 1+, Anisocytosis 1+, Macrocytosis 1+, Sodium Level 137, Potassium Level 4.0, Chloride Level 106, Carbon Dioxide Level 26, Anion Gap 5, Blood Urea Nitrogen 12, Creatinine 1.0, Estimat Glomerular Filtration Rate , Glucose Level 133H, Calcium Level 8.5, Phosphorus Level 2.2L, Magnesium Level 1.8, Total Bilirubin 0.3, Aspartate Amino Transf (AST/SGOT) 37, Alanine Aminotransferase (ALT/SGPT) 14, Alkaline Phosphatase 93, C-Reactive Protein, Quantitative 2.9H, Pro-B-Type Natriuretic Peptide 9253H, Total Protein 5.1L, Albumin 1.8L, Globulin 3.3, Albumin/Globulin Ratio 0.5L Height (Feet): 5 Height (Inches): 2.00 Weight (Pounds): 200 Objective General: alert, cooperative, no distress, appears stated age Head: normocephalic, without obvious abnormality, atraumatic Eyes: conjunctivae/corneas clear. PERRL, EOM's intact Throat: lips, mucosa, and tongue normal. MMM Neck: supple, symmetrical, trachea midline, and no JVD Lungs: clear to auscultation bilaterally Heart: regular rate and rhythm, S1, S2 normal, no murmur, click, rub or gallop Abdomen: soft, non-tender, non-distended, bowel sounds normal; no masses or organomegaly Extremities: extremities normal, atraumatic, no cyanosis or edema Pulses: 2+ and symmetric Skin: skin color, texture, turgor normal; no rashes or lesions Neurologic: grossly normal, no focal deficits Tamanna Ontiveros MD Jan 21, 2019 16:37
--- NOTE | 2019-01-21 16:38 | NUR ---
*-* DISCHARGE PLANNING *-* PATIENT HAS BEEN REFERRED TO: [facility] P:[phone] F:[phone] Addendum: 01/21/19 at 1703 by CRISTA ROTHMAN CM SPOKE WITH [facility] THEY ARE NOT CONTRACTED WITH [employer]
--- NOTE | 2019-01-21 16:42 | General Progress Note ---
Assessment/Plan Assessment/Plan Assessment/Plan: # Severe Pancytopenia -- multiple etiologies could be related to underlying liver disease, medication-induced, infection versus viral syndrome, ID with abx now --> peripheral smear has been ordered and does not show significant abnormalities, however concerning Ca++ elevated --> SPEP is negative for bands --> Continue to monitor for improvement, trend cbc --> Hep panel and HIV are both negative --> US abd ordered to r/o cirrhosis and hepatosplenomegaly does not show it --> consider other causes, infections that could contribute --> reverse isolation if ANC is <2000 --> Give neupogen if ANC <1000 --> Transfuse if hgb <7, with 1 unit prbc --> plts have improved, thus was likely reactive process # Coagulation defect, unspecified (D68.9) aka coagulopathy, multifactorial usually related to poor PO intake versus medications, versus hepatitis v cirrhosis --> administer Vitamin K if patient is bleeding or FFP if the INR is >10 --> hold off on ffp unless active procedure/bleeding, first begin with vit K 10 --> mixing study as needed # Severe Sepsis woth likely hcap --> on abx as per ID team --> 01/20 is last day of abx # Acute metabolic encephalopathy superimposed on severe dementia --> on IV antibiotics to vanco and meropenem--> cefazolin --> check blood cultures, serial lactate and PCT # Hypernatremia --> on fluids as per nephro # Chronic sCHF s/p AICD --> off anticoagulation, reviewed recs of Dr. Hi --> okay to restart given potentially benefit outweighs risk # Atrial fibrillation # VINH --> currently improving The timing of this note does not necessarily reflect the time of the patient was seen. Greatly appreciate consultation! Subjective ROS Limited/Unobtainable: Yes Cardiovascular: Denies: no symptoms, chest pain, edema, irregular heart rate, lightheadedness, palpitations, syncope, other Allergies: Coded Allergies: No Known Allergies (Unverified , 01/06/19) Subjective 01/08: pending lab workup, us of the abd pending, spep and dic panel pending 01/10: Seen by bedside, remains lethargic, no acute distress, plt remains low at 46 01/11: resting in bed, no acute distress, plt trending down 38 01/12: awake, comfortable, no acute distress noted, plt trending up 01/13: seen by bedside, awake, comfortable, no acute distress. 01/14: NG tube insertion, Pt is lethargic, plt trending up, hgb 7.7 01/15: lethargic, on 2L NC, no events, pending cbc today 01/17: plts are up trending, hgb 7.6, no events 01/18: seen by bedside, hgb 7.6, plt trending up, no events 01/20: out of the icu, completing abx today, feeling better, plt better 01/21: seen by bedside, awake, comfortable, plt trending up , hgb 7.8 Objective Last 24 Hour Vital Signs Date Time Temp Pulse Resp B/P (MAP) Pulse Ox O2 Delivery O2 Flow Rate FiO2 01/21/19 12:00 97.7 73 18 118/70 (86) 96 01/21/19 09:45 Nasal Cannula 2.0 28 01/21/19 09:45 96 Nasal Cannula 2.0 28 01/21/19 09:17 70 129/69 01/21/19 09:00 Room Air 01/21/19 08:00 97.9 70 18 129/69 (89) 96 01/21/19 03:57 97.3 71 20 144/68 (93) 96 01/21/19 00:00 97.9 78 20 138/72 (94) 96 01/20/19 21:00 Nasal Cannula 2.0 01/20/19 20:48 72 126/64 01/20/19 20:00 97.8 73 18 154/78 (103) 96 Intake and Output 01/20/19 01/21/19 18:59 06:59 Intake Total 1090 ml 500 ml Output Total 850 ml 600 ml Balance 240 ml -100 ml Intake Oral 300 ml IV Total 790 ml 500 ml Output Urine Total 850 ml 600 ml Laboratory Tests 01/21/19 05:00: White Blood Count 5.1, Red Blood Count 2.52L, Hemoglobin 7.8L, Hematocrit 25.2L , Mean Corpuscular Volume 100H, Mean Corpuscular Hemoglobin 31.0, Mean Corpuscular Hemoglobin Concent 31.0L, Red Cell Distribution Width 16.3H, Platelet Count 186, Mean Platelet Volume 6.3L, Neutrophils (%) (Auto) , Lymphocytes (%) (Auto) , Monocytes (%) (Auto) , Eosinophils (%) (Auto) , Basophils (%) (Auto) , Differential Total Cells Counted 100, Neutrophils % ( Manual) 82H, Lymphocytes % (Manual) 10L, Monocytes % (Manual) 6, Eosinophils % ( Manual) 2, Basophils % (Manual) 0, Band Neutrophils 0, Platelet Estimate Adequate, Platelet Morphology Normal, Hypochromasia 1+, Anisocytosis 1+, Macrocytosis 1+, Sodium Level 137, Potassium Level 4.0, Chloride Level 106, Carbon Dioxide Level 26, Anion Gap 5, Blood Urea Nitrogen 12, Creatinine 1.0, Estimat Glomerular Filtration Rate , Glucose Level 133H, Calcium Level 8.5, Phosphorus Level 2.2L, Magnesium Level 1.8, Total Bilirubin 0.3, Aspartate Amino Transf (AST/SGOT) 37, Alanine Aminotransferase (ALT/SGPT) 14, Alkaline Phosphatase 93, C-Reactive Protein, Quantitative 2.9H, Pro-B-Type Natriuretic Peptide 9253H, Total Protein 5.1L, Albumin 1.8L, Globulin 3.3, Albumin/Globulin Ratio 0.5L Height (Feet): 5 Height (Inches): 2.00 Weight (Pounds): 200 Objective PE General Appearance: lethargic ++2l NC Lines, tubes and drains: peripheral HEENT: normocephalic, atraumatic. NG tube insertion Neck: normal alignment Respiratory/Chest: lungs clear, normal breath sounds Cardiovascular/Chest: normal peripheral pulses, normal rate Abdomen: non tender, soft, no organomegaly Extremities: non-tender, normal inspection : Blane Peralta MD Jan 21, 2019 16:42
--- NOTE | 2019-01-21 18:02 | Cardiac Electrophysiology PN ---
Assessment/Plan Assessment/Plan 1. Atrial fibrillation. On Coreg and off anticoagulation for thrombocytopenia 2. Status post Medtronic biventricular ICD. No shocks 3. Congestive heart failure.BNP > 7200. EF 35%. 4. Severe hypernatremia and renal failure. On IV fluids per Dr. Wells. 5. History of hypertension. On Coreg 6. MRSA PNA on Abx 7. Altered mental status. 8. Thrombocytopenia. 9. Hx of CVA with dysphasia DW RN Subjective Subjective No significant change. RN at bedside Objective Last 24 Hour Vital Signs Date Time Temp Pulse Resp B/P (MAP) Pulse Ox O2 Delivery O2 Flow Rate FiO2 01/21/19 16:00 97.5 72 18 125/68 (87) 99 01/21/19 12:00 97.7 73 18 118/70 (86) 96 01/21/19 09:45 Nasal Cannula 2.0 28 01/21/19 09:45 96 Nasal Cannula 2.0 28 01/21/19 09:17 70 129/69 01/21/19 09:00 Room Air 01/21/19 08:00 97.9 70 18 129/69 (89) 96 01/21/19 03:57 97.3 71 20 144/68 (93) 96 01/21/19 00:00 97.9 78 20 138/72 (94) 96 01/20/19 21:00 Nasal Cannula 2.0 01/20/19 20:48 72 126/64 01/20/19 20:00 97.8 73 18 154/78 (103) 96 Intake and Output 01/20/19 01/21/19 19:00 07:00 Intake Total 1050 ml 540 ml Output Total 850 ml 600 ml Balance 200 ml -60 ml Intake Oral 300 ml IV Total 750 ml 540 ml Output Urine Total 850 ml 600 ml Laboratory Tests Test 01/21/19 05:00 White Blood Count 5.1 K/UL (4.8-10.8) Red Blood Count 2.52 M/UL (4.20-5.40) L Hemoglobin 7.8 G/DL (12.0-16.0) L Hematocrit 25.2 % (37.0-47.0) L Mean Corpuscular Volume 100 FL (80-99) H Mean Corpuscular Hemoglobin 31.0 PG (27.0-31.0) Mean Corpuscular Hemoglobin Concent 31.0 G/DL (32.0-36.0) L Red Cell Distribution Width 16.3 % (11.6-14.8) H Platelet Count 186 K/UL (150-450) Mean Platelet Volume 6.3 FL (6.5-10.1) L Neutrophils (%) (Auto) % (45.0-75.0) Lymphocytes (%) (Auto) % (20.0-45.0) Monocytes (%) (Auto) % (1.0-10.0) Eosinophils (%) (Auto) % (0.0-3.0) Basophils (%) (Auto) % (0.0-2.0) Differential Total Cells Counted 100 Neutrophils % (Manual) 82 % (45-75) H Lymphocytes % (Manual) 10 % (20-45) L Monocytes % (Manual) 6 % (1-10) Eosinophils % (Manual) 2 % (0-3) Basophils % (Manual) 0 % (0-2) Band Neutrophils 0 % (0-8) Platelet Estimate Adequate Platelet Morphology Normal Hypochromasia 1+ Anisocytosis 1+ Macrocytosis 1+ Sodium Level 137 MMOL/L (136-145) Potassium Level 4.0 MMOL/L (3.5-5.1) Chloride Level 106 MMOL/L (98-107) Carbon Dioxide Level 26 MMOL/L (21-32) Anion Gap 5 mmol/L (5-15) Blood Urea Nitrogen 12 mg/dL (7-18) Creatinine 1.0 MG/DL (0.55-1.30) Estimat Glomerular Filtration Rate mL/min (>60) Glucose Level 133 MG/DL (74-106) H Calcium Level 8.5 MG/DL (8.5-10.1) Phosphorus Level 2.2 MG/DL (2.5-4.9) L Magnesium Level 1.8 MG/DL (1.8-2.4) Total Bilirubin 0.3 MG/DL (0.2-1.0) Aspartate Amino Transf (AST/SGOT) 37 U/L (15-37) Alanine Aminotransferase (ALT/SGPT) 14 U/L (12-78) Alkaline Phosphatase 93 U/L (46-116) C-Reactive Protein, Quantitative 2.9 mg/dL (0.00-0.90) H Pro-B-Type Natriuretic Peptide 9253 pg/mL (0-125) H Total Protein 5.1 G/DL (6.4-8.2) L Albumin 1.8 G/DL (3.4-5.0) L Globulin 3.3 g/dL Albumin/Globulin Ratio 0.5 (1.0-2.7) L Objective HEAD AND NECK: Mild JVD. LUNGS: Decreased breath sounds. CARDIOVASCULAR: Irregular S1 and S2 with no gallop. Defibrillator in left subclavian. ABDOMEN: Soft. EXTREMITIES: No pitting edema. Gabe Hi MD Jan 21, 2019 18:02
--- NOTE | 2019-01-21 18:50 | NUR ---
NURSE NOTES: Tried to collect sputum culture but no sputum. will continue to monitor.
--- NOTE | 2019-01-21 19:31 | NUR ---
HAND-OFF: Report given to RADAMES NATH.
--- NOTE | 2019-01-21 19:32 | NUR ---
NURSE NOTES: Received patient in bed, asleep, call light within reach, bed is in low position, locked and alarm is on. No acute distress noted, will continue to monitor for safety and comfort.
[2019-01-21 20:00] VITALS: BP 127/77
[2019-01-21] MEDS: Dyna-Hex 2% Top Sol 2oz TOPIC SCH (20:36)
[2019-01-21] MEDS: ceFAZolin sod 1 GM in D5W 55 ML IVPB SCH (22:48)
[2019-01-22 00:33] VITALS: BP 130/71
[2019-01-22 04:00] VITALS: BP 133/75
[2019-01-22] MEDS: ceFAZolin sod 1 GM in D5W 55 ML IVPB SCH ×3 (05:59→21:09)
--- NOTE | 2019-01-22 06:45 | NUR ---
HAND-OFF: Report given to Chito CRUM.
--- NOTE | 2019-01-22 07:20 | NUR ---
NURSE NOTES: Receive pt from RADAMES NATH. Pt is orient x1.Pt is in RA, No SOB or acute respiratory distress noted. pt has PICC VENESSA is running well. all needs attended, bed is locked and is in the lowest position, call light within easy reach. will continue to monitor.
[2019-01-22 08:00] VITALS: BP 111/64
[2019-01-22 12:00] VITALS: BP 124/68
--- NOTE | 2019-01-22 12:42 | Nephrology Progress Note ---
Assessment/Plan Problem List: (1) Acute renal failure Assessment: resolving (2) Dehydration (3) Hypernatremia (4) Anemia Assessment acute Renal Failure Cr lowering Sepsis / UTI / Pneumonia Acute metabolic Encephalopathy Hypernatremia AICD AT FIB CAD HTN presents with Low BP Anemia DNR DNI Plan no labs today k Phos IV as needed stop IV fluids watch for chf pendleton hold mind altering meds protonix IV DC Motrin !!! Subjective ROS Limited/Unobtainable: No Constitutional: Reports: malaise, weakness Objective Objective Last 24 Hour Vital Signs Date Time Temp Pulse Resp B/P (MAP) Pulse Ox O2 Delivery O2 Flow Rate FiO2 01/22/19 12:00 97.4 72 20 124/68 (86) 97 01/22/19 09:00 Room Air 01/22/19 08:57 73 111/64 01/22/19 08:00 97.5 73 20 111/64 (80) 99 01/22/19 04:00 98.0 81 18 133/75 (94) 01/22/19 00:33 97.7 76 18 130/71 (90) 01/21/19 22:02 Nasal Cannula 2.0 01/21/19 21:00 97 Nasal Cannula 2.0 28 01/21/19 21:00 Nasal Cannula 2.0 28 01/21/19 20:37 73 128/87 01/21/19 20:00 97.9 73 20 127/77 (94) 01/21/19 16:00 97.5 72 18 125/68 (87) 99 Intake and Output 01/21/19 01/22/19 19:00 07:00 Intake Total 58171.546 ml 400 ml Output Total 851 ml Balance 59400.546 ml -451 ml Intake Oral 480 ml IV Total 12894.546 ml 400 ml Output Urine Total 850 ml Stool Total 1 ml Height (Feet): 5 Height (Inches): 2.00 Weight (Pounds): 200 General Appearance: no apparent distress Objective no change Noe Wells MD Jan 22, 2019 12:42
--- NOTE | 2019-01-22 13:57 | NUR ---
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
--- NOTE | 2019-01-22 15:51 | NUR ---
BELT SEWER NOTES SPOKE WITH ULICES FROM [facility] AWARE OF CONTACT LIST YESTERDAY COMPLETED WITH NO ACCEPTING FACILITY. ULICES PROVIDED NEW LIST. PLACED A CALL TO THE FOLLOWING FACILITIES. 1 V[facility] [phone] SPOKE WITH [facility], NO FEMALE BEDS AVAILABLE @ THIS TIME 2. [facility] [phone] SPOKE WITH BELLA, NO FEMALE BEDS AVAILABLE. 3. [facility] [phone] SPOKE WITH ERASTO NO BEDS AVAILABLE 4.[facility] [phone] SPOKE WITH PRAKASH NO FEMALE BEDS AVAILABLE @ THIS TIME. CALL BACK ON FRIDAY. MAY HAVE SOME DC OVER THE WEEKEND. 5. [phone] SPOKE WITH GLEN CHIU STILL IN REVIEW. WILL CALL BACK. 6. [facility] [phone] SPOKE WITH LEONIDES NO FEMALE BEDS AVAILABLE @ THIS TIME. 7. [facility] [phone] SPOKE WITH VICKY SHE HAS ONE FEMALE BED INQUIRY FAXED TO [phone]
[2019-01-22 16:00] VITALS: BP 128/64
[2019-01-22] MEDS ORDERED: Potassium Phosphate 20 MM in NS 275 ML IV ONE (16:00)
--- NOTE | 2019-01-22 17:39 | Cardiac Electrophysiology PN ---
Assessment/Plan Assessment/Plan 1. Atrial fibrillation. On Coreg and off anticoagulation for thrombocytopenia 2. Status post Medtronic biventricular ICD. No shocks 3. Congestive heart failure.BNP > 7200. EF 35%. 4. Severe hypernatremia and renal failure. On IV fluids per Dr. Wells. 5. History of hypertension. On Coreg 6. MRSA PNA on Abx 7. Altered mental status. 8. Thrombocytopenia. 9. Hx of CVA with dysphasia DW RN and Subjective Subjective Alert being fed by Objective Last 24 Hour Vital Signs Date Time Temp Pulse Resp B/P (MAP) Pulse Ox O2 Delivery O2 Flow Rate FiO2 01/22/19 16:00 98.3 73 20 128/64 (85) 100 01/22/19 12:00 97.4 72 20 124/68 (86) 97 01/22/19 09:00 Room Air 01/22/19 08:57 73 111/64 01/22/19 08:00 97.5 73 20 111/64 (80) 99 01/22/19 04:00 98.0 81 18 133/75 (94) 01/22/19 00:33 97.7 76 18 130/71 (90) 01/21/19 22:02 Nasal Cannula 2.0 01/21/19 21:00 97 Nasal Cannula 2.0 28 01/21/19 21:00 Nasal Cannula 2.0 28 01/21/19 20:37 73 128/87 01/21/19 20:00 97.9 73 20 127/77 (94) Intake and Output 01/21/19 01/22/19 19:00 07:00 Intake Total 30913.546 ml 400 ml Output Total 851 ml Balance 85490.546 ml -451 ml Intake Oral 480 ml IV Total 76115.546 ml 400 ml Output Urine Total 850 ml Stool Total 1 ml Objective HEAD AND NECK: Mild JVD. LUNGS: Decreased breath sounds. CARDIOVASCULAR: Irregular S1 and S2 with no gallop. IC in left subclavian. ABDOMEN: Soft. EXTREMITIES: No pitting edema. Gabe Hi MD Jan 22, 2019 17:39
--- NOTE | 2019-01-22 19:36 | NUR ---
HAND-OFF: Report given to RADAMES VELEZ.
--- NOTE | 2019-01-22 19:54 | General Progress Note ---
Assessment/Plan Assessment/Plan Assessment/Plan: # Severe Pancytopenia -- multiple etiologies could be related to underlying liver disease, medication-induced, infection versus viral syndrome, ID with abx now --> peripheral smear has been ordered and does not show significant abnormalities, however concerning Ca++ elevated --> SPEP is negative for bands --> Continue to monitor for improvement, trend cbc --> Hep panel and HIV are both negative --> US abd ordered to r/o cirrhosis and hepatosplenomegaly does not show it --> consider other causes, infections that could contribute --> reverse isolation if ANC is <2000 --> Give neupogen if ANC <1000 --> Transfuse if hgb <7, with 1 unit prbc --> plts have improved, thus was likely reactive process # Coagulation defect, unspecified (D68.9) aka coagulopathy, multifactorial usually related to poor PO intake versus medications, versus hepatitis v cirrhosis --> administer Vitamin K if patient is bleeding or FFP if the INR is >10 --> hold off on ffp unless active procedure/bleeding, first begin with vit K 10 --> mixing study as needed # Severe Sepsis woth likely hcap --> on abx as per ID team --> 01/20 is last day of abx # Acute metabolic encephalopathy superimposed on severe dementia --> on IV antibiotics to vanco and meropenem--> cefazolin --> check blood cultures, serial lactate and PCT # Hypernatremia --> on fluids as per nephro # Chronic sCHF s/p AICD --> off anticoagulation, reviewed recs of Dr. Hi --> okay to restart given potentially benefit outweighs risk # Atrial fibrillation # VINH --> currently improving The timing of this note does not necessarily reflect the time of the patient was seen. Greatly appreciate consultation! Subjective Constitutional: Denies: no symptoms, chills, diaphoresis, fever, malaise, weakness, other HEENT: Denies: no symptoms, eye pain, blurred vision, tearing, double vision, ear pain, ear discharge, nose pain, nose congestion, throat pain, throat swelling, mouth pain, mouth swelling, other Cardiovascular: Denies: no symptoms, chest pain, edema, irregular heart rate, lightheadedness, palpitations, syncope, other Respiratory: Denies: no symptoms, cough, orthopnea, shortness of breath, SOB with excertion, SOB at rest, sputum, stridor, wheezing, other Gastrointestinal/Abdominal: Denies: no symptoms, abdomen distended, abdominal pain, black stools, tarry stools, blood in stool, constipated, diarrhea, difficulty swallowing, nausea, poor appetite, poor fluid intake, rectal bleeding , vomiting, other Genitourinary: Denies: no symptoms, burning, discharge, frequency, flank pain, hematuria, incontinence, pain, urgency, other Neurologic/Psychiatric: Denies: no symptoms, anxiety, depressed, emotional problems, headache, numbness, paresthesia, pre-existing deficit, seizure, tingling, tremors, weakness, other Endocrine: Denies: no symptoms, excessive sweating, flushing, intolerance to cold, intolerance to heat, increased hunger, increased thirst, increased urine, unexplained weight gain, unexplained weight loss, other Hematologic/Lymphatic: Denies: no symptoms, anemia, easy bleeding, easy bruising, other Allergies: Coded Allergies: No Known Allergies (Unverified , 01/06/19) Subjective 01/08: pending lab workup, us of the abd pending, spep and dic panel pending 01/10: Seen by bedside, remains lethargic, no acute distress, plt remains low at 46 01/11: resting in bed, no acute distress, plt trending down 38 01/12: awake, comfortable, no acute distress noted, plt trending up 01/13: seen by bedside, awake, comfortable, no acute distress. 01/14: NG tube insertion, Pt is lethargic, plt trending up, hgb 7.7 01/15: lethargic, on 2L NC, no events, pending cbc today 01/17: plts are up trending, hgb 7.6, no events 01/18: seen by bedside, hgb 7.6, plt trending up, no events 01/20: out of the icu, completing abx today, feeling better, plt better 01/21: seen by bedside, awake, comfortable, plt trending up , hgb 7.8 01/22: Pt is awake, comfortable, no acute distress reported Objective Last 24 Hour Vital Signs Date Time Temp Pulse Resp B/P (MAP) Pulse Ox O2 Delivery O2 Flow Rate FiO2 01/22/19 16:00 98.3 73 20 128/64 (85) 100 01/22/19 12:00 97.4 72 20 124/68 (86) 97 01/22/19 09:00 Room Air 01/22/19 08:57 73 111/64 01/22/19 08:00 97.5 73 20 111/64 (80) 99 01/22/19 04:00 98.0 81 18 133/75 (94) 01/22/19 00:33 97.7 76 18 130/71 (90) 01/21/19 22:02 Nasal Cannula 2.0 01/21/19 21:00 97 Nasal Cannula 2.0 28 01/21/19 21:00 Nasal Cannula 2.0 28 01/21/19 20:37 73 128/87 01/21/19 20:00 97.9 73 20 127/77 (94) Intake and Output 01/21/19 01/22/19 19:00 07:00 Intake Total 97929.546 ml 400 ml Output Total 851 ml Balance 45463.546 ml -451 ml Intake Oral 480 ml IV Total 64478.546 ml 400 ml Output Urine Total 850 ml Stool Total 1 ml Height (Feet): 5 Height (Inches): 2.00 Weight (Pounds): 200 Objective PE General Appearance: lethargic ++2l NC Lines, tubes and drains: peripheral HEENT: normocephalic, atraumatic. NG tube insertion Neck: normal alignment Respiratory/Chest: lungs clear, normal breath sounds Cardiovascular/Chest: normal peripheral pulses, normal rate Abdomen: non tender, soft, no organomegaly Extremities: non-tender, normal inspection : Blane Peralta MD Jan 22, 2019 19:54
--- NOTE | 2019-01-22 19:59 | NUR ---
NURSE NOTES: Received patient asleep,comfortable.Kept clean and dry.
[2019-01-22 20:00] VITALS: BP 126/59
[2019-01-22] MEDS ORDERED: Tubing IV Secondary IV ONE (20:16)
--- NOTE | 2019-01-22 21:00 | NUR ---
NURSE NOTES: Wound dressings dry,clean and intact.
[2019-01-22] MEDS: Dyna-Hex 2% Top Sol 2oz TOPIC SCH (21:08)
--- NOTE | 2019-01-22 21:26 | General Progress Note ---
Assessment/Plan Assessment/Plan #Severe Sepsis #MSSA pneumonia, possibly due to aspiration #E. coli UTI #Acute metabolic encephalopathy superimposed on severe dementia -continue antibiotics per ID - will complete course today -aspiration precautions -pt pulled out NGT, cont liquify pureed, able to eat with at bedside -discussed with at bedside, does not want PEG #Hypernatremia -resolved -monitor BMP -Nephrology following #Chronic sCHF s/p AICD #Atrial fibrillation #HTN #CAD -HTN controlled -Continue Coreg -Cardiology eval appreciated -not on AC due to thrombocytopenia VTE PPx Heparin SC DNR/DNI Subjective Allergies: Coded Allergies: No Known Allergies (Unverified , 01/06/19) Subjective No acute overnight events, has no complaints, discussed with sons at bedside, would like SNF near [place], discussed with cm Objective Last 24 Hour Vital Signs Date Time Temp Pulse Resp B/P (MAP) Pulse Ox O2 Delivery O2 Flow Rate FiO2 01/22/19 21:08 80 126/59 01/22/19 20:00 98.5 80 18 126/59 (81) 96 01/22/19 16:00 98.3 73 20 128/64 (85) 100 01/22/19 12:00 97.4 72 20 124/68 (86) 97 01/22/19 09:00 Room Air 01/22/19 08:57 73 111/64 01/22/19 08:00 97.5 73 20 111/64 (80) 99 01/22/19 04:00 98.0 81 18 133/75 (94) 01/22/19 00:33 97.7 76 18 130/71 (90) 01/21/19 22:02 Nasal Cannula 2.0 Intake and Output 01/21/19 01/22/19 18:59 06:59 Intake Total 04296.546 ml 400 ml Output Total 851 ml Balance 42672.546 ml -451 ml Intake Oral 480 ml IV Total 33053.546 ml 400 ml Output Urine Total 850 ml Stool Total 1 ml Height (Feet): 5 Height (Inches): 2.00 Weight (Pounds): 200 Objective General: alert, cooperative, no distress, appears stated age Head: normocephalic, without obvious abnormality, atraumatic Eyes: conjunctivae/corneas clear. PERRL, EOM's intact Throat: lips, mucosa, and tongue normal. MMM Neck: supple, symmetrical, trachea midline, and no JVD Lungs: clear to auscultation bilaterally Heart: regular rate and rhythm, S1, S2 normal, no murmur, click, rub or gallop Abdomen: soft, non-tender, non-distended, bowel sounds normal; no masses or organomegaly Extremities: extremities normal, atraumatic, no cyanosis or edema Pulses: 2+ and symmetric Skin: skin color, texture, turgor normal; no rashes or lesions Neurologic: grossly normal, no focal deficits Tamanna Ontiveros MD Jan 22, 2019 21:26
[2019-01-23 00:40] VITALS: BP 121/58
[2019-01-23 04:00] VITALS: BP 144/82
[2019-01-23] MEDS: ceFAZolin sod 1 GM in D5W 55 ML IVPB SCH ×2 (04:46→13:39)
[2019-01-23 06:38] LABS: HEMATOCRIT 25.9 % (37.0-47.0); HEMOGLOBIN 7.9 G/DL (12.0-16.0); MEAN CORPUSCULAR VOLUME 101 FL (80-99); PLATELET COUNT 174 K/UL (150-450); RED BLOOD COUNT 2.56 M/UL (4.20-5.40); RED CELL DISTRIBUTION WIDTH 16.5 % (11.6-14.8); WHITE BLOOD COUNT 4.9 K/UL (4.8-10.8)
[2019-01-23 06:56] LABS: ANION GAP 6 mmol/L (5-15); BLOOD UREA NITROGEN 13 mg/dL (7-18); CALCIUM 8.6 MG/DL (8.5-10.1); CARBON DIOXIDE 27 MMOL/L (21-32); CHLORIDE 108 MMOL/L (98-107); SODIUM 140 MMOL/L (136-145)
--- NOTE | 2019-01-23 07:36 | NUR ---
HAND-OFF: Report given to Cole Hardy RN.
[2019-01-23 08:00] VITALS: BP 128/64
--- NOTE | 2019-01-23 10:22 | Diagnostic Imaging Report ---
EXAM: XR Chest, 1 View CLINICAL HISTORY: INFECT TECHNIQUE: Frontal view of the chest. COMPARISON: Chest x-ray, 01/21/19 903 FINDINGS: Lungs: Mild vascular congestion. No consolidation. Pleural space: Tiny bilateral pleural effusions. No pneumothorax. Heart: Cardiomegaly. Mediastinum: Unremarkable. Bones/joints: Unremarkable. Soft tissues: Left axillary surgical clips. Tubes, lines and devices: Cardiac pacemaker. Stable right PICC line. IMPRESSION: Mild vascular and interstitial congestion with tiny bilateral pleural effusions. Slightly worsening CHF.
--- NOTE | 2019-01-23 11:00 | NUR ---
NURSE NOTES: PT AXOX1, CALM, RESTING IN BED IN SEMI-CARVALHO'S POSITION. IN NO APPARENT DISTRESS AT THIS TIME. BED IN LOWEST POSITION. CALL LIGHT WITHIN REACH. WILL CONTINUE TO MONITOR.
[2019-01-23 12:00] VITALS: BP 134/64
--- NOTE | 2019-01-23 12:13 | Nephrology Progress Note ---
Assessment/Plan Problem List: (1) Acute renal failure Assessment: resolving (2) Dehydration (3) Hypernatremia (4) Anemia Assessment: worsening Assessment acute Renal Failure Cr lowering Sepsis / UTI / Pneumonia Acute metabolic Encephalopathy Hypernatremia AICD AT FIB CAD HTN presents with Low BP Anemia DNR DNI Plan labs reviewed k Phos IV as needed stop IV fluids watch for chf pendleton hold mind altering meds pepcid DC Motrin !!! Subjective ROS Limited/Unobtainable: No Constitutional: Reports: malaise Objective Objective Last 24 Hour Vital Signs Date Time Temp Pulse Resp B/P (MAP) Pulse Ox O2 Delivery O2 Flow Rate FiO2 01/23/19 09:21 79 128/64 01/23/19 09:00 Room Air 01/23/19 08:00 97.9 79 18 128/64 (85) 96 01/23/19 04:00 98.5 86 20 144/82 (102) 99 01/23/19 00:40 97.4 76 20 121/58 (79) 96 01/22/19 23:58 92 Nasal Cannula 2.0 28 01/22/19 23:54 Nasal Cannula 2.0 28 01/22/19 21:08 80 126/59 01/22/19 21:00 Room Air 01/22/19 20:00 98.5 80 18 126/59 (81) 96 01/22/19 16:00 98.3 73 20 128/64 (85) 100 Intake and Output 01/22/19 01/23/19 19:00 07:00 Intake Total 1048.888 ml 56041 ml Output Total 800 ml Balance 248.888 ml 73588 ml Intake Oral 600 ml IV Total 448.888 ml 74042 ml Output Urine Total 800 ml Laboratory Tests 01/23/19 05:00: White Blood Count 4.9, Red Blood Count 2.56L, Hemoglobin 7.9L, Hematocrit 25.9L , Mean Corpuscular Volume 101H, Mean Corpuscular Hemoglobin 31.0, Mean Corpuscular Hemoglobin Concent 30.7L, Red Cell Distribution Width 16.5H, Platelet Count 174, Mean Platelet Volume 6.5, Neutrophils (%) (Auto) , Lymphocytes (%) (Auto) , Monocytes (%) (Auto) , Eosinophils (%) (Auto) , Basophils (%) (Auto) , Sodium Level 140, Potassium Level 4.0, Chloride Level 108H, Carbon Dioxide Level 27, Anion Gap 6, Blood Urea Nitrogen 13, Creatinine 1.0, Estimat Glomerular Filtration Rate , Glucose Level 102, Calcium Level 8.6 Height (Feet): 5 Height (Inches): 2.00 Weight (Pounds): 200 General Appearance: no apparent distress Objective no change Noe Wells MD Jan 23, 2019 12:13
[2019-01-23 13:04] LABS: ALANINE AMINOTRANSFERASE 9 U/L (12-78); ALBUMIN 1.8 G/DL (3.4-5.0); ALKALINE PHOSPHATASE 93 U/L (46-116); ASPARTATE AMINO TRANSFERASE 36 U/L (15-37); BILIRUBIN,DIRECT 0.1 MG/DL (0.0-0.3); BILIRUBIN,TOTAL 0.3 MG/DL (0.2-1.0); FERRITIN 266 NG/ML (8-388)
[2019-01-23 13:14] LABS: % IRON SATURATION 47 % (15-50); IRON 45 ug/dL (50-175); TOTAL IRON BINDING CAPACITY 96 ug/dL (250-450)
--- NOTE | 2019-01-23 13:36 | NUR ---
CASE MANAGEMENT: REVIEW SI: SEPSIS T 97.9 HR 76 RR 20 BP 144/82 SAT 96% ROOM AIR H/H 7.9/25.9 IS: CEFAZOLIN IV Q8HR FLAGYL IV Q8HR COREG PO Q12HR MED/SURG STATUS DCP: PATIENT IS FROM [facility]
--- NOTE | 2019-01-23 14:04 | Infectious Diseases Prog Note ---
Assessment/Plan Assessment/Plan ASSESSMENT AND PLAN: 1. e.coli uti, staph aureus pna/MSSA, possible aspiration pna with jennifer-hilar infiltrate, sepsis, sirs, leukopenia, hypothermia, ams/lethargy - discontinue ancef and flagyl - s/p full course abx for mssa and aspiration pna - chest x-ray with chf/pvc findings now - poor oral intake - f/u on labs, monitor chest x-ray as indicated - clinically seems stable, no sig sob or congestion 2. The patient has severe hypernatremia. 3. Dehydration. 4. Acute kidney injury. 5. Elevated creatinine. 6. Intravenous fluids. 7. Hypothermia. 8. Pancytopenia. Workup per Hematology/Oncology. 9. Hypertension. 10. Coronary artery disease. 11. Congestive heart failure. 12. Automatic implanted cardioverter. 13. Subdural hematoma. 14. Severe dementia. 15. Aspiration risk. 16. No known drug allergies. 17. Social history is negative. 18. Family history is noncontributory. 19. MAR was noted. 20. Case was discussed with RN. 21. Encephalopathy. 22. Skin care protocol. 23. The patient is DNR/DNI. 24. aspiration precautions 25. mrsa colonization 26. wound care per protocol - sacral wound noted and not acutely infected Subjective Constitutional: Denies: fever HEENT: Denies: congestion Respiratory: Denies: shortness of breath Cardiovascular: Denies: chest pain Gastrointestinal/Abdominal: Denies: nausea, vomiting, diarrhea Genitourinary: Reports: other - + pendleton Neurologic: Denies: headache Psychiatric: Denies: depression Skin: Denies: rash Hematologic: Denies: bleeding Musculoskeletal: Denies: pain Allergies: Coded Allergies: No Known Allergies (Unverified , 01/06/19) Objective Vital Signs Last 24 Hour Vital Signs Date Time Temp Pulse Resp B/P (MAP) Pulse Ox O2 Delivery O2 Flow Rate FiO2 01/23/19 12:00 97.9 71 18 134/64 (87) 97 01/23/19 09:21 79 128/64 01/23/19 09:00 Room Air 01/23/19 08:00 97.9 79 18 128/64 (85) 96 01/23/19 04:00 98.5 86 20 144/82 (102) 99 01/23/19 00:40 97.4 76 20 121/58 (79) 96 01/22/19 23:58 92 Nasal Cannula 2.0 28 01/22/19 23:54 Nasal Cannula 2.0 28 01/22/19 21:08 80 126/59 01/22/19 21:00 Room Air 01/22/19 20:00 98.5 80 18 126/59 (81) 96 01/22/19 16:00 98.3 73 20 128/64 (85) 100 Height (Feet): 5 Height (Inches): 2.00 Weight (Pounds): 200 General Appearance: no acute distress HEENT: normocephalic, atraumatic, anicteric, mucous membranes moist Respiratory/Chest: lungs clear, normal breath sounds, no respiratory distress, no accessory muscle use, crackles/rales - occ crackles Cardiovascular: normal rate, regular rhythm, no gallop/murmur, no JVD Abdomen: normal bowel sounds, soft, non tender, no organomegaly, non distended Genitourinary: other - + pendleton - urine clear Extremities: no cyanosis Skin: no rash 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 Surgical clips are seen in the left axilla. The heart is borderline enlarged. The lungs demonstrate possible hazy infiltrate in left perihilar region Impression: Possible left perihilar infiltrate Borderline cardiomegaly Other findings as noted 01/12 - chest x-ray - Comparison: 01/10/2019 Findings: The heart is enlarged. There is patchy parenchymal opacity in the left suprahilar region which is not evident previously. There is equivocal minimal interstitial congestive change. The lungs and pleural spaces are otherwise grossly clear, although a pacemaker obscures much of the left lung. Surgical clips are seen in the left chest wall Impression: New or increased patchy left suprahilar opacity Equivocal minimal interstitial congestion Chest x-ray - 01/14/19 - Findings: Again demonstrated is a left chest AICD with epicardial leads. Surgical clips are seen in the left axilla. The heart is enlarged. The lungs and pleural spaces are clear. There is a right arm PICC Impression: No acute process Cardiomegaly Other findings as noted Chest x-ray - 01/21/19 Findings: Left chest AICD, right arm PICC again demonstrated. Interim development of small left pleural effusion. There may be some hazy infiltrate developing in the left perihilar region, although this is largely obscured by the pacemaker. The heart is enlarged.. Impression: New small left pleural effusion Possible left perihilar hazy infiltrate, also new 01/23/19 - FINDINGS: Lungs: Mild vascular congestion. No consolidation. Pleural space: Tiny bilateral pleural effusions. No pneumothorax. Heart: Cardiomegaly. Mediastinum: Unremarkable. Bones/joints: Unremarkable. Soft tissues: Left axillary surgical clips. Tubes, lines and devices: Cardiac pacemaker. Stable right PICC line. IMPRESSION: Mild vascular and interstitial congestion with tiny bilateral pleural effusions. Slightly worsening CHF. Microbiology Date/Time Source Procedure Growth Status 01/06/19 17:25 Blood Blood Culture - Final NO GROWTH AFTER 5 DAYS Complete 01/08/19 07:00 Sputum Induced Gram Stain - Final Complete 01/08/19 07:00 Sputum Culture - Final Staphylococcus Aureus Complete 01/07/19 11:30 Urine,Clean Catch Urine Culture - Final Escherichia Coli Complete 01/06/19 18:10 Rectum VRE Culture - Final NO VANCOMYCIN RESISTANT ENTEROCOCCUS ... Complete 01/06/19 18:10 Rectum - Final NO CARBAPENEM-RESISTANT ENTEROBACTERI... Complete Laboratory Tests Test 01/23/19 05:00 White Blood Count 4.9 K/UL (4.8-10.8) Red Blood Count 2.56 M/UL (4.20-5.40) L Hemoglobin 7.9 G/DL (12.0-16.0) L Hematocrit 25.9 % (37.0-47.0) L Mean Corpuscular Volume 101 FL (80-99) H Mean Corpuscular Hemoglobin 31.0 PG (27.0-31.0) Mean Corpuscular Hemoglobin Concent 30.7 G/DL (32.0-36.0) L Red Cell Distribution Width 16.5 % (11.6-14.8) H Platelet Count 174 K/UL (150-450) Mean Platelet Volume 6.5 FL (6.5-10.1) Neutrophils (%) (Auto) % (45.0-75.0) Lymphocytes (%) (Auto) % (20.0-45.0) Monocytes (%) (Auto) % (1.0-10.0) Eosinophils (%) (Auto) % (0.0-3.0) Basophils (%) (Auto) % (0.0-2.0) Sodium Level 140 MMOL/L (136-145) Potassium Level 4.0 MMOL/L (3.5-5.1) Chloride Level 108 MMOL/L (98-107) H Carbon Dioxide Level 27 MMOL/L (21-32) Anion Gap 6 mmol/L (5-15) Blood Urea Nitrogen 13 mg/dL (7-18) Creatinine 1.0 MG/DL (0.55-1.30) Estimat Glomerular Filtration Rate mL/min (>60) Glucose Level 102 MG/DL (74-106) Calcium Level 8.6 MG/DL (8.5-10.1) Phosphorus Level 3.0 MG/DL (2.5-4.9) Iron Level 45 ug/dL (50-175) L Total Iron Binding Capacity 96 ug/dL (250-450) L Percent Iron Saturation 47 % (15-50) Unsaturated Iron Binding 51 ug/dL (112-346) L Ferritin 266 NG/ML (8-388) Total Bilirubin 0.3 MG/DL (0.2-1.0) Direct Bilirubin 0.1 MG/DL (0.0-0.3) Aspartate Amino Transf (AST/SGOT) 36 U/L (15-37) Alanine Aminotransferase (ALT/SGPT) 9 U/L (12-78) L Alkaline Phosphatase 93 U/L (46-116) Total Protein 5.5 G/DL (6.4-8.2) L Albumin 1.8 G/DL (3.4-5.0) L Vitamin B12 Level 1286 PG/ML (193-986) H Folate 9.6 NG/ML (8.6-58.9) Current Medications Medications (Trade) Dose Ordered Sig/Nuria Route PRN Reason Start Time Stop Time Status Last Admin Dose Admin Carvedilol (Coreg) 3.125 mg EVERY 12 HOURS ORAL 01/13/19 21:00 02/12/19 20:59 01/23/19 09:21 Cefazolin Sodium 1 gm/Dextrose 55 ml @ 110 mls/hr Q8HR IVPB 01/21/19 22:00 01/28/19 21:59 01/23/19 13:39 Chlorhexidine Gluconate (Kaylee-Hex 2%) 1 applic DAILY@2000 TOPIC 01/13/19 20:00 02/12/19 19:59 01/22/19 21:08 Dextrose (Dextrose 50%) 25 ml Q30M PRN IV Hypoglycemia 01/13/19 04:00 02/05/19 18:59 Dextrose (Dextrose 50%) 50 ml Q30M PRN IV Hypoglycemia 01/13/19 04:00 02/05/19 18:59 Famotidine (Pepcid) 20 mg BID ORAL 01/23/19 18:00 02/22/19 17:59 Metronidazole 100 ml @ 100 mls/hr Q8HR IVPB 01/21/19 22:00 01/28/19 21:59 01/23/19 05:31 Ninfa Vences MD Jan 23, 2019 14:04
[2019-01-23 16:00] VITALS: BP 145/72
--- NOTE | 2019-01-23 16:14 | Cardiac Electrophysiology PN ---
Assessment/Plan Assessment/Plan 1. Atrial fibrillation. On Coreg and off anticoagulation for thrombocytopenia 2. Status post Medtronic biventricular ICD. No shocks 3. Congestive heart failure. BNP > 7200. EF 35%. 4. Severe hypernatremia and renal failure. On IV fluids per Dr. Wells. 5. History of hypertension. On Coreg 6. MRSA PNA on Abx 7. Altered mental status. 8. Thrombocytopenia. 9. Hx of CVA with dysphasia DW RN Subjective Subjective Alert in NAD off tele. Objective Last 24 Hour Vital Signs Date Time Temp Pulse Resp B/P (MAP) Pulse Ox O2 Delivery O2 Flow Rate FiO2 01/23/19 12:00 97.9 71 18 134/64 (87) 97 01/23/19 09:21 79 128/64 01/23/19 09:00 Room Air 01/23/19 08:00 97.9 79 18 128/64 (85) 96 01/23/19 04:00 98.5 86 20 144/82 (102) 99 01/23/19 00:40 97.4 76 20 121/58 (79) 96 01/22/19 23:58 92 Nasal Cannula 2.0 28 01/22/19 23:54 Nasal Cannula 2.0 28 01/22/19 21:08 80 126/59 01/22/19 21:00 Room Air 01/22/19 20:00 98.5 80 18 126/59 (81) 96 Intake and Output 01/22/19 01/23/19 19:00 07:00 Intake Total 1048.888 ml 56236 ml Output Total 800 ml Balance 248.888 ml 75146 ml Intake Oral 600 ml IV Total 448.888 ml 30964 ml Output Urine Total 800 ml Laboratory Tests Test 01/23/19 05:00 White Blood Count 4.9 K/UL (4.8-10.8) Red Blood Count 2.56 M/UL (4.20-5.40) L Hemoglobin 7.9 G/DL (12.0-16.0) L Hematocrit 25.9 % (37.0-47.0) L Mean Corpuscular Volume 101 FL (80-99) H Mean Corpuscular Hemoglobin 31.0 PG (27.0-31.0) Mean Corpuscular Hemoglobin Concent 30.7 G/DL (32.0-36.0) L Red Cell Distribution Width 16.5 % (11.6-14.8) H Platelet Count 174 K/UL (150-450) Mean Platelet Volume 6.5 FL (6.5-10.1) Neutrophils (%) (Auto) % (45.0-75.0) Lymphocytes (%) (Auto) % (20.0-45.0) Monocytes (%) (Auto) % (1.0-10.0) Eosinophils (%) (Auto) % (0.0-3.0) Basophils (%) (Auto) % (0.0-2.0) Sodium Level 140 MMOL/L (136-145) Potassium Level 4.0 MMOL/L (3.5-5.1) Chloride Level 108 MMOL/L (98-107) H Carbon Dioxide Level 27 MMOL/L (21-32) Anion Gap 6 mmol/L (5-15) Blood Urea Nitrogen 13 mg/dL (7-18) Creatinine 1.0 MG/DL (0.55-1.30) Estimat Glomerular Filtration Rate mL/min (>60) Glucose Level 102 MG/DL (74-106) Calcium Level 8.6 MG/DL (8.5-10.1) Phosphorus Level 3.0 MG/DL (2.5-4.9) Iron Level 45 ug/dL (50-175) L Total Iron Binding Capacity 96 ug/dL (250-450) L Percent Iron Saturation 47 % (15-50) Unsaturated Iron Binding 51 ug/dL (112-346) L Ferritin 266 NG/ML (8-388) Total Bilirubin 0.3 MG/DL (0.2-1.0) Direct Bilirubin 0.1 MG/DL (0.0-0.3) Aspartate Amino Transf (AST/SGOT) 36 U/L (15-37) Alanine Aminotransferase (ALT/SGPT) 9 U/L (12-78) L Alkaline Phosphatase 93 U/L (46-116) Total Protein 5.5 G/DL (6.4-8.2) L Albumin 1.8 G/DL (3.4-5.0) L Vitamin B12 Level 1286 PG/ML (193-986) H Folate 9.6 NG/ML (8.6-58.9) Objective HEAD AND NECK: Mild JVD. LUNGS: Decreased breath sounds. CARDIOVASCULAR: Irregular S1 and S2 with no gallop. ICD in left subclavian. ABDOMEN: Soft. EXTREMITIES: No pitting edema. Gabe Hi MD Jan 23, 2019 16:14
--- NOTE | 2019-01-23 19:07 | NUR ---
HAND-OFF: Report given to Karma REBOLLAR RN.
[2019-01-23 20:00] VITALS: BP 126/73
[2019-01-23] MEDS: Dyna-Hex 2% Top Sol 2oz TOPIC SCH (21:42)
--- NOTE | 2019-01-23 21:59 | General Progress Note ---
Assessment/Plan Assessment/Plan #Severe Sepsis #MSSA pneumonia, possibly due to aspiration #E. coli UTI #Acute metabolic encephalopathy superimposed on severe dementia -continue antibiotics per ID - will complete course today -aspiration precautions -pt pulled out NGT, cont liquify pureed, able to eat with at bedside -discussed with at bedside, does not want PEG #Hypernatremia -resolved -monitor BMP -Nephrology following #Chronic sCHF s/p AICD #Atrial fibrillation #HTN #CAD -HTN controlled -Continue Coreg -Cardiology eval appreciated -not on AC due to thrombocytopenia VTE PPx Heparin SC DNR/DNI Subjective Allergies: Coded Allergies: No Known Allergies (Unverified , 01/06/19) Subjective No acute overnight events, has no complaints, discussed with sons and , would like SNF near [place], discussed with cm Objective Last 24 Hour Vital Signs Date Time Temp Pulse Resp B/P (MAP) Pulse Ox O2 Delivery O2 Flow Rate FiO2 01/23/19 21:40 82 126/73 01/23/19 20:00 98.4 82 19 126/73 (90) 96 01/23/19 16:00 98.5 74 19 145/72 (96) 100 01/23/19 12:00 97.9 71 18 134/64 (87) 97 01/23/19 09:21 79 128/64 01/23/19 09:00 Room Air 01/23/19 08:00 97.9 79 18 128/64 (85) 96 01/23/19 04:00 98.5 86 20 144/82 (102) 99 01/23/19 00:40 97.4 76 20 121/58 (79) 96 01/22/19 23:58 92 Nasal Cannula 2.0 28 01/22/19 23:54 Nasal Cannula 2.0 28 Intake and Output 01/22/19 01/23/19 19:00 07:00 Intake Total 1048.888 ml 89396 ml Output Total 800 ml Balance 248.888 ml 12834 ml Intake Oral 600 ml IV Total 448.888 ml 62383 ml Output Urine Total 800 ml Laboratory Tests 01/23/19 05:00: White Blood Count 4.9, Red Blood Count 2.56L, Hemoglobin 7.9L, Hematocrit 25.9L , Mean Corpuscular Volume 101H, Mean Corpuscular Hemoglobin 31.0, Mean Corpuscular Hemoglobin Concent 30.7L, Red Cell Distribution Width 16.5H, Platelet Count 174, Mean Platelet Volume 6.5, Neutrophils (%) (Auto) , Lymphocytes (%) (Auto) , Monocytes (%) (Auto) , Eosinophils (%) (Auto) , Basophils (%) (Auto) , Sodium Level 140, Potassium Level 4.0, Chloride Level 108H, Carbon Dioxide Level 27, Anion Gap 6, Blood Urea Nitrogen 13, Creatinine 1.0, Estimat Glomerular Filtration Rate , Glucose Level 102, Calcium Level 8.6, Phosphorus Level 3.0, Iron Level 45L, Total Iron Binding Capacity 96L, Percent Iron Saturation 47, Unsaturated Iron Binding 51L, Ferritin 266, Total Bilirubin 0.3, Direct Bilirubin 0.1, Aspartate Amino Transf (AST/SGOT) 36, Alanine Aminotransferase (ALT/SGPT) 9L, Alkaline Phosphatase 93, Total Protein 5.5L, Albumin 1.8L, Vitamin B12 Level 1286H, Folate 9.6 Height (Feet): 5 Height (Inches): 2.00 Weight (Pounds): 200 Objective General: alert, cooperative, no distress, appears stated age Head: normocephalic, without obvious abnormality, atraumatic Eyes: conjunctivae/corneas clear. PERRL, EOM's intact Throat: lips, mucosa, and tongue normal. MMM Neck: supple, symmetrical, trachea midline, and no JVD Lungs: clear to auscultation bilaterally Heart: regular rate and rhythm, S1, S2 normal, no murmur, click, rub or gallop Abdomen: soft, non-tender, non-distended, bowel sounds normal; no masses or organomegaly Extremities: extremities normal, atraumatic, no cyanosis or edema Pulses: 2+ and symmetric Skin: skin color, texture, turgor normal; no rashes or lesions Neurologic: grossly normal, no focal deficits Tamanna Ontiveros MD Jan 23, 2019 21:59
[2019-01-24] VITALS: BP 129/71
[2019-01-24 04:00] VITALS: BP 122/64
--- NOTE | 2019-01-24 05:03 | NUR ---
Nurse's notes:Photos taken of left inner thigh and sacral wounds; unable to upload pictures as this science writer does not have access to uploading access on [email or web address]; approached other RNs to assist; still unable to do so. Per assessment left inner thigh wounds seems to be better; no open skin; no raw/reddened areas; new dressing applied. Sacral wound also seemed to be improving; no redness, open skin; dressing changed with optifoam. will attempt again to upload photos prior to end of this shift.
--- NOTE | 2019-01-24 06:55 | NUR ---
Nurse's notes: patient repositioned frequently; 1 normal large bowel movement noted; picc line dressing remain CDI; will continue to monitor.
[2019-01-24 08:00] VITALS: BP 129/68
--- NOTE | 2019-01-24 08:00 | NUR ---
NURSE NOTES: received patient in bed, asleep, by the bedside. Patient has a PICC line on VENESSA, saline locked. Patient also has Bowens catheter draining kia urine. On P200 mattress, dressing at sacral and L thigh dry and intact. Will continue to monitor patient and follow up with the plan of care.
[2019-01-24] MEDS ORDERED: Tubing IV Secondary IV ONE (10:10)
[2019-01-24 12:00] VITALS: BP 129/71
--- NOTE | 2019-01-24 13:33 | Nephrology Progress Note ---
Assessment/Plan Problem List: (1) Acute renal failure Assessment: resolving (2) Dehydration (3) Hypernatremia (4) Anemia Assessment: worsening Assessment acute Renal Failure Cr lowering Sepsis / UTI / Pneumonia Acute metabolic Encephalopathy Hypernatremia AICD AT FIB CAD HTN presents with Low BP Anemia DNR DNI Plan labs reviewed k Phos IV as needed stop IV fluids watch for chf pendleton hold mind altering meds pepcid DC Motrin !!! Subjective ROS Limited/Unobtainable: No Constitutional: Reports: malaise Objective Objective Last 24 Hour Vital Signs Date Time Temp Pulse Resp B/P (MAP) Pulse Ox O2 Delivery O2 Flow Rate FiO2 01/24/19 12:00 98.0 88 16 129/71 (90) 94 01/24/19 09:00 Room Air 01/24/19 08:38 77 129/68 01/24/19 08:00 Room Air 21 01/24/19 08:00 94 Room Air 21 01/24/19 08:00 96.4 77 16 129/68 (88) 98 01/24/19 04:00 98.3 65 18 122/64 (83) 98 01/24/19 00:00 98.4 88 16 129/71 (90) 94 01/23/19 21:40 82 126/73 01/23/19 21:00 Room Air 01/23/19 20:00 98.4 82 19 126/73 (90) 96 01/23/19 16:00 98.5 74 19 145/72 (96) 100 Intake and Output 01/23/19 01/24/19 19:00 07:00 Intake Total 295 ml 100 ml Output Total 675 ml Balance -380 ml 100 ml Intake Oral 240 ml 100 ml IV Total 55 ml Output Urine Total 675 ml # Bowel Movements 1 1 Height (Feet): 5 Height (Inches): 2.00 Weight (Pounds): 200 General Appearance: no apparent distress, lethargic Cardiovascular: normal rate Respiratory/Chest: decreased breath sounds Abdomen: distended Objective no change Noe Wells MD Jan 24, 2019 13:33
[2019-01-24 16:00] VITALS: BP 141/80
--- NOTE | 2019-01-24 16:06 | NUR ---
[employer] SALESPERSON SI:SEPSIS VS: BP 154/67, P 65, T 96.4, RR 16, SpO2 98 CXR IMPRESSION: Mild vascular and interstitial congestion with tiny bilateral pleural effusions. Slightly worsening CHF. IS:Chlorhexidine Carvedilol Famotidine MED/SURG STATUS
--- NOTE | 2019-01-24 16:08 | General Progress Note ---
Assessment/Plan Assessment/Plan #Severe Sepsis #MSSA pneumonia, possibly due to aspiration #E. coli UTI #Acute metabolic encephalopathy superimposed on severe dementia -completed abx course -observe off antibiotics -aspiration precautions -pt pulled out NGT, cont liquify pureed, able to eat with at bedside -discussed with at bedside, does not want PEG #Hypernatremia -resolved -monitor BMP -Nephrology following #Chronic sCHF s/p AICD #Atrial fibrillation #HTN #CAD -HTN controlled -Continue Coreg -Cardiology eval appreciated -not on AC due to thrombocytopenia #Dispo -awaiting placement VTE PPx Heparin SC DNR/DNI Subjective Allergies: Coded Allergies: No Known Allergies (Unverified , 01/06/19) Subjective No acute overnight events, has no complaints, discussed with sons and , would like SNF near [place], discussed with cm Objective Last 24 Hour Vital Signs Date Time Temp Pulse Resp B/P (MAP) Pulse Ox O2 Delivery O2 Flow Rate FiO2 01/24/19 12:00 98.0 88 16 129/71 (90) 94 01/24/19 09:00 Room Air 01/24/19 08:38 77 129/68 01/24/19 08:00 Room Air 21 01/24/19 08:00 94 Room Air 21 01/24/19 08:00 96.4 77 16 129/68 (88) 98 01/24/19 04:00 98.3 65 18 122/64 (83) 98 01/24/19 00:00 98.4 88 16 129/71 (90) 94 01/23/19 21:40 82 126/73 01/23/19 21:00 Room Air 01/23/19 20:00 98.4 82 19 126/73 (90) 96 Intake and Output 01/23/19 01/24/19 19:00 07:00 Intake Total 295 ml 100 ml Output Total 675 ml Balance -380 ml 100 ml Intake Oral 240 ml 100 ml IV Total 55 ml Output Urine Total 675 ml # Bowel Movements 1 1 Height (Feet): 5 Height (Inches): 2.00 Weight (Pounds): 200 Objective General: alert, cooperative, no distress, appears stated age Head: normocephalic, without obvious abnormality, atraumatic Eyes: conjunctivae/corneas clear. PERRL, EOM's intact Throat: lips, mucosa, and tongue normal. MMM Neck: supple, symmetrical, trachea midline, and no JVD Lungs: clear to auscultation bilaterally Heart: regular rate and rhythm, S1, S2 normal, no murmur, click, rub or gallop Abdomen: soft, non-tender, non-distended, bowel sounds normal; no masses or organomegaly Extremities: extremities normal, atraumatic, no cyanosis or edema Pulses: 2+ and symmetric Skin: skin color, texture, turgor normal; no rashes or lesions Neurologic: grossly normal, no focal deficits Tamanna Ontiveros MD Jan 24, 2019 16:08
--- NOTE | 2019-01-24 19:28 | NUR ---
HAND-OFF: Report given to RADAMES Tristan.
--- NOTE | 2019-01-24 19:30 | NUR ---
NURSE NOTES: Received a report from RADAMES Ro. Pt is in stable condition. Confused. Maltese speaker. No respiratory distress noted. On room air. No c/o pain/discomfort. Has a PICC line 2 lumen, is patent and intact. Bowens catheter is draining. Bed in lowest position. Bed alarm is on. Call light within reach. Will continue to monitor.
[2019-01-24 20:00] VITALS: BP 154/67
[2019-01-24] MEDS: Dyna-Hex 2% Top Sol 2oz TOPIC SCH (21:14)
--- NOTE | 2019-01-24 21:45 | General Progress Note ---
Assessment/Plan Assessment/Plan Assessment/Plan: # Severe Pancytopenia -- multiple etiologies could be related to underlying liver disease, medication-induced, infection versus viral syndrome, ID with abx now --> peripheral smear has been ordered and does not show significant abnormalities, however concerning Ca++ elevated --> SPEP is negative for bands --> Continue to monitor for improvement, trend cbc --> Hep panel and HIV are both negative --> US abd ordered to r/o cirrhosis and hepatosplenomegaly does not show it --> consider other causes, infections that could contribute --> reverse isolation if ANC is <2000 --> Give neupogen if ANC <1000 --> Transfuse if hgb <7, with 1 unit prbc --> plts have improved, thus was likely reactive process # Coagulation defect, unspecified (D68.9) aka coagulopathy, multifactorial usually related to poor PO intake versus medications, versus hepatitis v cirrhosis --> administer Vitamin K if patient is bleeding or FFP if the INR is >10 --> hold off on ffp unless active procedure/bleeding, first begin with vit K 10 --> mixing study as needed # Severe Sepsis woth likely hcap --> on abx as per ID team --> 01/20 is last day of abx # Acute metabolic encephalopathy superimposed on severe dementia --> on IV antibiotics to vanco and meropenem--> cefazolin --> check blood cultures, serial lactate and PCT # Hypernatremia --> on fluids as per nephro # Chronic sCHF s/p AICD --> off anticoagulation, reviewed recs of Dr. Hi --> okay to restart given potentially benefit outweighs risk # Atrial fibrillation # VINH --> currently improving The timing of this note does not necessarily reflect the time of the patient was seen. Greatly appreciate consultation! Subjective ROS Limited/Unobtainable: Yes Allergies: Coded Allergies: No Known Allergies (Unverified , 01/06/19) Subjective 01/08: pending lab workup, us of the abd pending, spep and dic panel pending 01/10: Seen by bedside, remains lethargic, no acute distress, plt remains low at 46 01/11: resting in bed, no acute distress, plt trending down 38 01/12: awake, comfortable, no acute distress noted, plt trending up 01/13: seen by bedside, awake, comfortable, no acute distress. 01/14: NG tube insertion, Pt is lethargic, plt trending up, hgb 7.7 01/15: lethargic, on 2L NC, no events, pending cbc today 01/17: plts are up trending, hgb 7.6, no events 01/18: seen by bedside, hgb 7.6, plt trending up, no events 01/20: out of the icu, completing abx today, feeling better, plt better 01/21: seen by bedside, awake, comfortable, plt trending up , hgb 7.8 01/22: Pt is awake, comfortable, no acute distress reported 01/24: awake, comfortable, no events reported, at bedside Objective Last 24 Hour Vital Signs Date Time Temp Pulse Resp B/P (MAP) Pulse Ox O2 Delivery O2 Flow Rate FiO2 01/24/19 21:15 74 154/67 01/24/19 20:00 98.0 74 18 154/67 (96) 99 01/24/19 16:00 98.2 81 19 141/80 (100) 100 01/24/19 12:00 98.0 88 16 129/71 (90) 94 01/24/19 09:00 Room Air 01/24/19 08:38 77 129/68 01/24/19 08:00 Room Air 21 01/24/19 08:00 94 Room Air 21 01/24/19 08:00 96.4 77 16 129/68 (88) 98 01/24/19 04:00 98.3 65 18 122/64 (83) 98 01/24/19 00:00 98.4 88 16 129/71 (90) 94 Intake and Output 01/23/19 01/24/19 19:00 07:00 Intake Total 295 ml 100 ml Output Total 675 ml Balance -380 ml 100 ml Intake Oral 240 ml 100 ml IV Total 55 ml Output Urine Total 675 ml # Bowel Movements 1 1 Height (Feet): 5 Height (Inches): 2.00 Weight (Pounds): 200 Objective PE General Appearance: lethargic ++2l NC Lines, tubes and drains: peripheral HEENT: normocephalic, atraumatic. NG tube insertion Neck: normal alignment Respiratory/Chest: lungs clear, normal breath sounds Cardiovascular/Chest: normal peripheral pulses, normal rate Abdomen: non tender, soft, no organomegaly Extremities: non-tender, normal inspection : Blane Peralta MD Jan 24, 2019 21:45
[2019-01-25] VITALS: BP 110/58
[2019-01-25 04:00] VITALS: BP 126/77
--- NOTE | 2019-01-25 05:00 | NUR ---
NURSE NOTES: Nara CRUM, took pictures of the wounds of the pt. But, unable to upload pictures. Camera is not working. Will endorse it to the morning nurse.
--- NOTE | 2019-01-25 07:30 | NUR ---
HAND-OFF: Report given to RADAMES Ro. Endorsed to Jia CRUM, to take pictures of the wounds again, then upload it. Jia CRUM will do it later.
--- NOTE | 2019-01-25 11:34 | Nephrology Progress Note ---
Assessment/Plan Problem List: (1) Acute renal failure Assessment: resolving (2) Dehydration (3) Hypernatremia (4) Anemia Assessment: worsening Assessment acute Renal Failure Cr lowering Sepsis / UTI / Pneumonia Acute metabolic Encephalopathy Hypernatremia AICD AT FIB CAD HTN presents with Low BP Anemia DNR DNI Plan labs reviewed k Phos IV as needed stop IV fluids watch for chf pendleton hold mind altering meds pepcid DC Motrin !!! Subjective ROS Limited/Unobtainable: No Constitutional: Reports: malaise, weakness Objective Objective Last 24 Hour Vital Signs Date Time Temp Pulse Resp B/P (MAP) Pulse Ox O2 Delivery O2 Flow Rate FiO2 01/25/19 04:00 98.0 81 18 126/77 (93) 98 01/25/19 00:00 98.0 71 19 110/58 (75) 98 01/24/19 21:15 74 154/67 01/24/19 21:00 Room Air 01/24/19 20:00 98.0 74 18 154/67 (96) 99 01/24/19 16:00 98.2 81 19 141/80 (100) 100 01/24/19 12:00 98.0 88 16 129/71 (90) 94 Intake and Output 01/24/19 01/25/19 18:59 06:59 Intake Total 720 ml Output Total 400 ml 225 ml Balance 320 ml -225 ml Intake Oral 720 ml Output Urine Total 400 ml 225 ml # Bowel Movements 1 Height (Feet): 5 Height (Inches): 2.00 Weight (Pounds): 200 General Appearance: no apparent distress Cardiovascular: normal rate Respiratory/Chest: lungs clear Abdomen: soft Objective no change Noe Wells MD Jan 25, 2019 11:34
[2019-01-25 11:52] VITALS: BP 144/87
--- NOTE | 2019-01-25 14:39 | NUR ---
RD ASSESSMENT & RECOMMENDATIONS SEE CARE ACTIVITY FOR COMPLETE ASSESSMENT DAILY ESTIMATED NEEDS: Needs based on Wound, obese 58.8kg adj 25-30 kcals/kg 0145-8841 total kcals 1.25-1.5 g protein/kg 74-88 g total protein 25-30 mL/kg 5440-9767 total fluid mLs NUTRITION DIAGNOSIS: 1) Increased kcal and protein needs r/t wound healing as evidenced by pt w/ sacral stage 2 per RN 2) Altered nutrition related lab values r/t water deficits, clinical condition, h/o DM as evidenced by pt adm w/ Na 165-> now normalized, elev BUN and creat, now both normalized, elev BGs (133 126, improved) . 3) Swallowing difficulty R/T dysphagia w/ h/o CVA, lethargy as evidenced by MAC ARTIST initially recommended NPO, NGT was inserted, but s/p self removal of NGT, pt now back on liquify pureed, NTL diet. CURRENT DIET:LOW NA/ liquify pureed, NTL + Glucerna TID PO DIET RECOMMENDATIONS: Liberalized REGULAR w/ poor PO/ texture per MAC ARTIST ADDITIONAL RECOMMENDATIONS: 1) RE-calibrate bed scale w/ added P200 mattress 2) Wound healing: Add SWAPNA BID, MVI x 1, Vit C 250g QD Rec updated WC eval 3) Monitor BGs, need for hypoglycemic agent - h/o DM 4) Continue Glucerna TID
--- NOTE | 2019-01-25 15:16 | Infectious Diseases Prog Note ---
Assessment/Plan Assessment/Plan ASSESSMENT AND PLAN: 1. e.coli uti, staph aureus pna/MSSA, possible aspiration pna with jennifer-hilar infiltrate, sepsis, sirs, leukopenia, hypothermia, ams/lethargy - s/p ancef and flagyl - s/p full course abx for mssa and aspiration pna - chest x-ray with chf/pvc findings now - poor oral intake - f/u on labs, monitor chest x-ray as indicated - clinically seems stable, no sig sob or congestion - stable off abx 2. The patient has severe hypernatremia. 3. Dehydration. 4. Acute kidney injury. 5. Elevated creatinine. 6. Intravenous fluids. 7. Hypothermia. 8. Pancytopenia. Workup per Hematology/Oncology. 9. Hypertension. 10. Coronary artery disease. 11. Congestive heart failure. 12. Automatic implanted cardioverter. 13. Subdural hematoma. 14. Severe dementia. 15. Aspiration risk. 16. No known drug allergies. 17. Social history is negative. 18. Family history is noncontributory. 19. MAR was noted. 20. Case was discussed with RN. 21. Encephalopathy. 22. Skin care protocol. 23. The patient is DNR/DNI. 24. aspiration precautions 25. mrsa colonization 26. wound care per protocol - sacral wound noted and not acutely infected Subjective Constitutional: Denies: fever HEENT: Denies: congestion Respiratory: Denies: shortness of breath Cardiovascular: Denies: chest pain Gastrointestinal/Abdominal: Denies: nausea Genitourinary: Reports: other - + pendleton Neurologic: Denies: headache Psychiatric: Denies: depression Skin: Denies: rash Hematologic: Denies: bleeding Musculoskeletal: Denies: pain Allergies: Coded Allergies: No Known Allergies (Unverified , 01/06/19) Objective Vital Signs Last 24 Hour Vital Signs Date Time Temp Pulse Resp B/P (MAP) Pulse Ox O2 Delivery O2 Flow Rate FiO2 01/25/19 11:53 76 144/87 01/25/19 11:52 97.5 76 18 144/87 (106) 99 01/25/19 04:00 98.0 81 18 126/77 (93) 98 01/25/19 00:00 98.0 71 19 110/58 (75) 98 01/24/19 21:15 74 154/67 01/24/19 21:00 Room Air 01/24/19 20:00 98.0 74 18 154/67 (96) 99 01/24/19 16:00 98.2 81 19 141/80 (100) 100 Height (Feet): 5 Height (Inches): 2.00 Weight (Pounds): 200 General Appearance: no acute distress HEENT: normocephalic, atraumatic, anicteric, mucous membranes moist Respiratory/Chest: lungs clear, normal breath sounds, no respiratory distress, no accessory muscle use Cardiovascular: normal rate, regular rhythm, no gallop/murmur, no JVD Abdomen: normal bowel sounds, soft, non tender, no organomegaly, non distended Genitourinary: other - + pendleton - urine clear Extremities: no cyanosis Skin: no rash Neurologic/Psychiatric: asset protection officer II-XII grossly normal, alert, responsive Lymphatic: no neck adenopathy Musculoskeletal: no effusion Objective 01/06 - chest x-ray - Comparison: none Findings: There is a left chest pacemaker, with an orphaned lead as well as epicardial leads. Surgical clips are seen in the left axilla. The heart is borderline enlarged. The lungs demonstrate possible hazy infiltrate in left perihilar region Impression: Possible left perihilar infiltrate Borderline cardiomegaly Other findings as noted 01/12 - chest x-ray - Comparison: 01/10/2019 Findings: The heart is enlarged. There is patchy parenchymal opacity in the left suprahilar region which is not evident previously. There is equivocal minimal interstitial congestive change. The lungs and pleural spaces are otherwise grossly clear, although a pacemaker obscures much of the left lung. Surgical clips are seen in the left chest wall Impression: New or increased patchy left suprahilar opacity Equivocal minimal interstitial congestion Chest x-ray - 01/14/19 - Findings: Again demonstrated is a left chest AICD with epicardial leads. Surgical clips are seen in the left axilla. The heart is enlarged. The lungs and pleural spaces are clear. There is a right arm PICC Impression: No acute process Cardiomegaly Other findings as noted Chest x-ray - 01/21/19 Findings: Left chest AICD, right arm PICC again demonstrated. Interim development of small left pleural effusion. There may be some hazy infiltrate developing in the left perihilar region, although this is largely obscured by the pacemaker. The heart is enlarged.. Impression: New small left pleural effusion Possible left perihilar hazy infiltrate, also new 01/23/19 - FINDINGS: Lungs: Mild vascular congestion. No consolidation. Pleural space: Tiny bilateral pleural effusions. No pneumothorax. Heart: Cardiomegaly. Mediastinum: Unremarkable. Bones/joints: Unremarkable. Soft tissues: Left axillary surgical clips. Tubes, lines and devices: Cardiac pacemaker. Stable right PICC line. IMPRESSION: Mild vascular and interstitial congestion with tiny bilateral pleural effusions. Slightly worsening CHF. Microbiology Date/Time Source Procedure Growth Status 01/06/19 17:25 Blood Blood Culture - Final NO GROWTH AFTER 5 DAYS Complete 01/08/19 07:00 Sputum Induced Gram Stain - Final Complete 01/08/19 07:00 Sputum Culture - Final Staphylococcus Aureus Complete 01/07/19 11:30 Urine,Clean Catch Urine Culture - Final Escherichia Coli Complete 01/06/19 18:10 Rectum VRE Culture - Final NO VANCOMYCIN RESISTANT ENTEROCOCCUS ... Complete 01/06/19 18:10 Rectum - Final NO CARBAPENEM-RESISTANT ENTEROBACTERI... Complete Labs Test 01/23/19 05:00 White Blood Count 4.9 K/UL (4.8-10.8) Red Blood Count 2.56 M/UL (4.20-5.40) Hemoglobin 7.9 G/DL (12.0-16.0) Hematocrit 25.9 % (37.0-47.0) Mean Corpuscular Volume 101 FL (80-99) Mean Corpuscular Hemoglobin 31.0 PG (27.0-31.0) Mean Corpuscular Hemoglobin Concent 30.7 G/DL (32.0-36.0) Red Cell Distribution Width 16.5 % (11.6-14.8) Platelet Count 174 K/UL (150-450) Mean Platelet Volume 6.5 FL (6.5-10.1) Neutrophils (%) (Auto) % (45.0-75.0) Lymphocytes (%) (Auto) % (20.0-45.0) Monocytes (%) (Auto) % (1.0-10.0) Eosinophils (%) (Auto) % (0.0-3.0) Basophils (%) (Auto) % (0.0-2.0) Sodium Level 140 MMOL/L (136-145) Potassium Level 4.0 MMOL/L (3.5-5.1) Chloride Level 108 MMOL/L (98-107) Carbon Dioxide Level 27 MMOL/L (21-32) Anion Gap 6 mmol/L (5-15) Blood Urea Nitrogen 13 mg/dL (7-18) Creatinine 1.0 MG/DL (0.55-1.30) Estimat Glomerular Filtration Rate mL/min (>60) Glucose Level 102 MG/DL (74-106) Calcium Level 8.6 MG/DL (8.5-10.1) Phosphorus Level 3.0 MG/DL (2.5-4.9) Iron Level 45 ug/dL (50-175) Total Iron Binding Capacity 96 ug/dL (250-450) Percent Iron Saturation 47 % (15-50) Unsaturated Iron Binding 51 ug/dL (112-346) Ferritin 266 NG/ML (8-388) Total Bilirubin 0.3 MG/DL (0.2-1.0) Direct Bilirubin 0.1 MG/DL (0.0-0.3) Aspartate Amino Transf (AST/SGOT) 36 U/L (15-37) Alanine Aminotransferase (ALT/SGPT) 9 U/L (12-78) Alkaline Phosphatase 93 U/L (46-116) Total Protein 5.5 G/DL (6.4-8.2) Albumin 1.8 G/DL (3.4-5.0) Vitamin B12 Level 1286 PG/ML (193-986) Folate 9.6 NG/ML (8.6-58.9) Current Medications Medications (Trade) Dose Ordered Sig/Nuria Route PRN Reason Start Time Stop Time Status Last Admin Dose Admin Carvedilol (Coreg) 3.125 mg EVERY 12 HOURS ORAL 01/13/19 21:00 02/12/19 20:59 01/25/19 11:53 Chlorhexidine Gluconate (Kaylee-Hex 2%) 1 applic DAILY@1999 TOPIC 01/13/19 20:00 02/12/19 19:59 01/24/19 21:14 Dextrose (Dextrose 50%) 25 ml Q30M PRN IV Hypoglycemia 01/13/19 04:00 02/05/19 18:59 Dextrose (Dextrose 50%) 50 ml Q30M PRN IV Hypoglycemia 01/13/19 04:00 02/05/19 18:59 Famotidine (Pepcid) 20 mg BID ORAL 01/23/19 18:00 02/22/19 17:59 01/25/19 11:53 Ninfa Vences MD Jan 25, 2019 15:16
[2019-01-25 16:00] VITALS: BP 121/82
--- NOTE | 2019-01-25 16:12 | NUR ---
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
--- NOTE | 2019-01-25 17:15 | General Progress Note ---
Assessment/Plan Assessment/Plan Assessment/Plan: # Severe Pancytopenia -- multiple etiologies could be related to underlying liver disease, medication-induced, infection versus viral syndrome, ID with abx now --> peripheral smear has been ordered and does not show significant abnormalities, however concerning Ca++ elevated --> SPEP is negative for bands --> Continue to monitor for improvement, trend cbc --> Hep panel and HIV are both negative --> US abd ordered to r/o cirrhosis and hepatosplenomegaly does not show it --> consider other causes, infections that could contribute --> reverse isolation if ANC is <2000 --> Give neupogen if ANC <1000 --> Transfuse if hgb <7, with 1 unit prbc --> plts have improved, thus was likely reactive process # Coagulation defect, unspecified (D68.9) aka coagulopathy, multifactorial usually related to poor PO intake versus medications, versus hepatitis v cirrhosis --> administer Vitamin K if patient is bleeding or FFP if the INR is >10 --> hold off on ffp unless active procedure/bleeding, first begin with vit K 10 --> mixing study as needed # Severe Sepsis woth likely hcap --> on abx as per ID team --> 01/20 is last day of abx # Acute metabolic encephalopathy superimposed on severe dementia --> on IV antibiotics to vanco and meropenem--> cefazolin --> check blood cultures, serial lactate and PCT # Hypernatremia --> on fluids as per nephro # Chronic sCHF s/p AICD --> off anticoagulation, reviewed recs of Dr. Hi --> okay to restart given potentially benefit outweighs risk # Atrial fibrillation # VINH --> currently improving The timing of this note does not necessarily reflect the time of the patient was seen. Greatly appreciate consultation! Subjective ROS Limited/Unobtainable: Yes Allergies: Coded Allergies: No Known Allergies (Unverified , 01/06/19) Subjective 01/08: pending lab workup, us of the abd pending, spep and dic panel pending 01/10: Seen by bedside, remains lethargic, no acute distress, plt remains low at 46 01/11: resting in bed, no acute distress, plt trending down 38 01/12: awake, comfortable, no acute distress noted, plt trending up 01/13: seen by bedside, awake, comfortable, no acute distress. 01/14: NG tube insertion, Pt is lethargic, plt trending up, hgb 7.7 01/15: lethargic, on 2L NC, no events, pending cbc today 01/17: plts are up trending, hgb 7.6, no events 01/18: seen by bedside, hgb 7.6, plt trending up, no events 01/20: out of the icu, completing abx today, feeling better, plt better 01/21: seen by bedside, awake, comfortable, plt trending up , hgb 7.8 01/22: Pt is awake, comfortable, no acute distress reported 01/24: awake, comfortable, no events reported, at bedside 01/25: Pt resting in bed, no distress reported, pending labs Objective Last 24 Hour Vital Signs Date Time Temp Pulse Resp B/P (MAP) Pulse Ox O2 Delivery O2 Flow Rate FiO2 01/25/19 11:53 76 144/87 01/25/19 11:52 97.5 76 18 144/87 (106) 99 01/25/19 09:00 Room Air 01/25/19 04:00 98.0 81 18 126/77 (93) 98 01/25/19 00:00 98.0 71 19 110/58 (75) 98 01/24/19 21:15 74 154/67 01/24/19 21:00 Room Air 01/24/19 20:00 98.0 74 18 154/67 (96) 99 Intake and Output 01/24/19 01/25/19 19:00 07:00 Intake Total 720 ml Output Total 400 ml 225 ml Balance 320 ml -225 ml Intake Oral 720 ml Output Urine Total 400 ml 225 ml # Bowel Movements 1 Height (Feet): 5 Height (Inches): 2.00 Weight (Pounds): 200 Objective PE General Appearance: lethargic ++2l NC Lines, tubes and drains: peripheral HEENT: normocephalic, atraumatic. NG tube insertion Neck: normal alignment Respiratory/Chest: lungs clear, normal breath sounds Cardiovascular/Chest: normal peripheral pulses, normal rate Abdomen: non tender, soft, no organomegaly Extremities: non-tender, normal inspection : Blane Peralta MD Jan 25, 2019 17:15
--- NOTE | 2019-01-25 18:29 | Cardiac Electrophysiology PN ---
Assessment/Plan Assessment/Plan 1. Atrial fibrillation. On Coreg and off anticoagulation for thrombocytopenia Off tele now 2. Status post [employer] biventricular ICD. No shocks 3. Congestive heart failure. BNP > 7200. EF 35%. On Coreg 4. Severe hypernatremia and renal failure. On IV fluids per Dr. Wells. 5. History of hypertension. On Coreg 6. MRSA PNA on Abx 7. Altered mental status. 8. Thrombocytopenia. 9. Hx of CVA with dysphasia DW RN Subjective Subjective Alert in NAD . just fed her. Objective Last 24 Hour Vital Signs Date Time Temp Pulse Resp B/P (MAP) Pulse Ox O2 Delivery O2 Flow Rate FiO2 01/25/19 16:00 97.1 86 18 121/82 (95) 99 01/25/19 11:53 76 144/87 01/25/19 11:52 97.5 76 18 144/87 (106) 99 01/25/19 09:00 Room Air 01/25/19 04:00 98.0 81 18 126/77 (93) 98 01/25/19 00:00 98.0 71 19 110/58 (75) 98 01/24/19 21:15 74 154/67 01/24/19 21:00 Room Air 01/24/19 20:00 98.0 74 18 154/67 (96) 99 Intake and Output 01/24/19 01/25/19 19:00 07:00 Intake Total 720 ml Output Total 400 ml 225 ml Balance 320 ml -225 ml Intake Oral 720 ml Output Urine Total 400 ml 225 ml # Bowel Movements 1 Objective HEAD AND NECK: Mild JVD. LUNGS: Decreased breath sounds. CARDIOVASCULAR: Irregular S1 and S2 with no gallop. ICD in left subclavian. ABDOMEN: Soft. EXTREMITIES: No pitting edema. Gabe Hi MD Jan 25, 2019 18:29
--- NOTE | 2019-01-25 19:35 | NUR ---
NURSE NOTES: Received a report from RADAMES Ro. Pt is in stable condition. Sleeping comfortably. No respiratory distress noted. On room air. No c/o pain/discomfort. Has a PICC line 2 lumen, is patent and intact. Bowens catheter is draining. Bed in lowest position. Bed alarm is on. Call light within reach. Will continue to monitor.
--- NOTE | 2019-01-25 19:39 | NUR ---
HAND-OFF: Report given to RADAMES Tristan.
[2019-01-25 20:00] VITALS: BP 110/66
[2019-01-25] MEDS: Dyna-Hex 2% Top Sol 2oz TOPIC SCH (20:00)
--- NOTE | 2019-01-25 23:10 | General Progress Note ---
Assessment/Plan Assessment/Plan #Severe Sepsis #MSSA pneumonia, possibly due to aspiration #E. coli UTI #Acute metabolic encephalopathy superimposed on severe dementia -completed abx course -observe off antibiotics -aspiration precautions -pt pulled out NGT, cont liquify pureed, able to eat with at bedside -discussed with at bedside, does not want PEG #Hypernatremia -resolved -monitor BMP -Nephrology following #Chronic sCHF s/p AICD #Atrial fibrillation #HTN #CAD -HTN controlled -Continue Coreg -Cardiology eval appreciated -not on AC due to thrombocytopenia -off tele #Dispo -awaiting placement VTE PPx Heparin SC DNR/DNI Subjective Allergies: Coded Allergies: No Known Allergies (Unverified , 01/06/19) All Systems: reviewed and negative except above Subjective No acute overnight events, has no complaints, discussed with sons and , would like SNF near [place], discussed with cm Objective Last 24 Hour Vital Signs Date Time Temp Pulse Resp B/P (MAP) Pulse Ox O2 Delivery O2 Flow Rate FiO2 01/25/19 21:20 77 110/66 01/25/19 21:00 Room Air 01/25/19 20:00 97.8 77 18 110/66 (81) 98 01/25/19 16:00 97.1 86 18 121/82 (95) 99 01/25/19 11:53 76 144/87 01/25/19 11:52 97.5 76 18 144/87 (106) 99 01/25/19 09:00 Room Air 01/25/19 04:00 98.0 81 18 126/77 (93) 98 01/25/19 00:00 98.0 71 19 110/58 (75) 98 Intake and Output 01/24/19 01/25/19 19:00 07:00 Intake Total 720 ml Output Total 400 ml 225 ml Balance 320 ml -225 ml Intake Oral 720 ml Output Urine Total 400 ml 225 ml # Bowel Movements 1 Height (Feet): 5 Height (Inches): 2.00 Weight (Pounds): 200 Objective General: alert, cooperative, no distress, appears stated age Head: normocephalic, without obvious abnormality, atraumatic Eyes: conjunctivae/corneas clear. PERRL, EOM's intact Throat: lips, mucosa, and tongue normal. MMM Neck: supple, symmetrical, trachea midline, and no JVD Lungs: clear to auscultation bilaterally Heart: regular rate and rhythm, S1, S2 normal, no murmur, click, rub or gallop Abdomen: soft, non-tender, non-distended, bowel sounds normal; no masses or organomegaly Extremities: extremities normal, atraumatic, no cyanosis or edema Pulses: 2+ and symmetric Skin: skin color, texture, turgor normal; no rashes or lesions Neurologic: grossly normal, no focal deficits Tamanna Ontiveros MD Jan 25, 2019 23:09
[2019-01-26] VITALS: BP 144/80
[2019-01-26 04:00] VITALS: BP 131/86
--- NOTE | 2019-01-26 07:15 | NUR ---
NURSE NOTES: Received patient on bed, awake. IV site intact and patent. Bed in low and locked position. Patient denies shortness of breath and pain. Room board updated, will continue to monitor. Addendum: 01/26/19 at 0720 by JASMYN MEEHAN RN RN Entered under wrong patient. Please disregard.
--- NOTE | 2019-01-26 07:25 | NUR ---
NURSE NOTES: Received patient on bed asleep. PICC intact and patent. Floey catheter present and draining. Bed in low and locked position, call light in reach. No signs of respiratory distress or pain. Room board updated, will continue to monitor.
--- NOTE | 2019-01-26 07:30 | NUR ---
HAND-OFF: Report given to RADAMES Wallace.
--- NOTE | 2019-01-26 07:35 | NUR ---
NURSE NOTES: Received patient on bed, awake. IV site intact. Pendleton catheter present and is intact and patent. RN Fariha placing pendleton anchor. Berd in low an dlocked, call light in reach. No signs of respiratory distress or pain. ROom board updated, will continue to monitor.
[2019-01-26 08:00] VITALS: BP 129/98
--- NOTE | 2019-01-26 09:39 | NUR ---
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
[2019-01-26 12:00] VITALS: BP 118/78
--- NOTE | 2019-01-26 14:26 | NUR ---
*-* INSURANCE *-* UPDATED REVIEWS HAVE BEEN FAXED TO: [place]A: ROCAEL F:[phone] P:[phone]
--- NOTE | 2019-01-26 14:37 | Nephrology Progress Note ---
Assessment/Plan Problem List: (1) Acute renal failure Assessment: resolving (2) Dehydration (3) Hypernatremia (4) Anemia Assessment: worsening Assessment acute Renal Failure Cr lowering Sepsis / UTI / Pneumonia Acute metabolic Encephalopathy Hypernatremia AICD AT FIB CAD HTN presents with Low BP Anemia DNR DNI Plan labs reviewed k Phos IV as needed stop IV fluids watch for chf pendleton hold mind altering meds pepcid DC Motrin !!! Subjective ROS Limited/Unobtainable: No Objective Objective Last 24 Hour Vital Signs Date Time Temp Pulse Resp B/P (MAP) Pulse Ox O2 Delivery O2 Flow Rate FiO2 01/26/19 12:00 96.8 68 18 118/78 (91) 98 01/26/19 10:08 96 129/98 01/26/19 09:00 Room Air 01/26/19 08:00 98.2 96 18 129/98 (108) 97 01/26/19 04:00 97.9 99 17 131/86 (101) 96 01/26/19 00:00 98.3 88 18 144/80 (101) 96 01/25/19 21:20 77 110/66 01/25/19 21:00 Room Air 01/25/19 20:00 97.8 77 18 110/66 (81) 98 01/25/19 16:00 97.1 86 18 121/82 (95) 99 Intake and Output 01/25/19 01/26/19 18:59 06:59 Intake Total 860 ml Output Total 800 ml 400 ml Balance 60 ml -400 ml Intake Oral 860 ml Output Urine Total 800 ml 400 ml # Bowel Movements 1 Height (Feet): 5 Height (Inches): 2.00 Weight (Pounds): 200 General Appearance: no apparent distress Cardiovascular: normal rate Respiratory/Chest: decreased breath sounds Abdomen: distended Objective no change Noe Wells MD Jan 26, 2019 14:37
--- NOTE | 2019-01-26 15:40 | General Progress Note ---
Assessment/Plan Assessment/Plan Assessment/Plan: # Severe Pancytopenia -- multiple etiologies could be related to underlying liver disease, medication-induced, infection versus viral syndrome, ID with abx now --> peripheral smear has been ordered and does not show significant abnormalities, however concerning Ca++ elevated --> SPEP is negative for bands --> Continue to monitor for improvement, trend cbc --> Hep panel and HIV are both negative --> US abd ordered to r/o cirrhosis and hepatosplenomegaly does not show it --> consider other causes, infections that could contribute --> reverse isolation if ANC is <2000 --> Give neupogen if ANC <1000 --> Transfuse if hgb <7, with 1 unit prbc --> plts have improved, thus was likely reactive process # Coagulation defect, unspecified (D68.9) aka coagulopathy, multifactorial usually related to poor PO intake versus medications, versus hepatitis v cirrhosis --> administer Vitamin K if patient is bleeding or FFP if the INR is >10 --> hold off on ffp unless active procedure/bleeding, first begin with vit K 10 --> mixing study as needed # Severe Sepsis woth likely hcap --> on abx as per ID team --> 01/20 is last day of abx # Acute metabolic encephalopathy superimposed on severe dementia --> on IV antibiotics to vanco and meropenem--> cefazolin --> check blood cultures, serial lactate and PCT # Hypernatremia --> on fluids as per nephro # Chronic sCHF s/p AICD --> off anticoagulation, reviewed recs of Dr. Hi --> okay to restart given potentially benefit outweighs risk --> appreciate cardiology recs # Atrial fibrillation # VINH --> currently improving The timing of this note does not necessarily reflect the time of the patient was seen. Greatly appreciate consultation! Subjective ROS Limited/Unobtainable: Yes Allergies: Coded Allergies: No Known Allergies (Unverified , 01/06/19) Subjective 01/08: pending lab workup, us of the abd pending, spep and dic panel pending 01/10: Seen by bedside, remains lethargic, no acute distress, plt remains low at 46 01/11: resting in bed, no acute distress, plt trending down 38 01/12: awake, comfortable, no acute distress noted, plt trending up 01/13: seen by bedside, awake, comfortable, no acute distress. 01/14: NG tube insertion, Pt is lethargic, plt trending up, hgb 7.7 01/15: lethargic, on 2L NC, no events, pending cbc today 01/17: plts are up trending, hgb 7.6, no events 01/18: seen by bedside, hgb 7.6, plt trending up, no events 01/20: out of the icu, completing abx today, feeling better, plt better 01/21: seen by bedside, awake, comfortable, plt trending up , hgb 7.8 01/22: Pt is awake, comfortable, no acute distress reported 01/24: awake, comfortable, no events reported, at bedside 01/25: Pt resting in bed, no distress reported, pending labs 01/26: resting in bed, comfortable, no events Objective Last 24 Hour Vital Signs Date Time Temp Pulse Resp B/P (MAP) Pulse Ox O2 Delivery O2 Flow Rate FiO2 01/26/19 12:00 96.8 68 18 118/78 (91) 98 01/26/19 10:08 96 129/98 01/26/19 09:00 Room Air 01/26/19 08:00 98.2 96 18 129/98 (108) 97 01/26/19 04:00 97.9 99 17 131/86 (101) 96 01/26/19 00:00 98.3 88 18 144/80 (101) 96 01/25/19 21:20 77 110/66 01/25/19 21:00 Room Air 01/25/19 20:00 97.8 77 18 110/66 (81) 98 01/25/19 16:00 97.1 86 18 121/82 (95) 99 Intake and Output 01/25/19 01/26/19 18:59 06:59 Intake Total 860 ml Output Total 800 ml 400 ml Balance 60 ml -400 ml Intake Oral 860 ml Output Urine Total 800 ml 400 ml # Bowel Movements 1 Height (Feet): 5 Height (Inches): 2.00 Weight (Pounds): 200 Objective PE General Appearance: lethargic ++2l NC Lines, tubes and drains: peripheral HEENT: normocephalic, atraumatic. NG tube insertion Neck: normal alignment Respiratory/Chest: lungs clear, normal breath sounds Cardiovascular/Chest: normal peripheral pulses, normal rate Abdomen: non tender, soft, no organomegaly Extremities: non-tender, normal inspection : Blane Peralta MD Jan 26, 2019 15:40
[2019-01-26 16:00] VITALS: BP 126/88
--- NOTE | 2019-01-26 16:06 | Cardiac Electrophysiology PN ---
Assessment/Plan Assessment/Plan 1. Atrial fibrillation. On Coreg and off anticoagulation for thrombocytopenia 2. Status post [employer] biventricular ICD. No shocks 3. Congestive heart failure. BNP > 7200. EF 35%. On Coreg 4. Severe hypernatremia and renal failure. On IV fluids per Dr. Wells. 5. History of hypertension. On Coreg 6. MRSA PNA on Abx 7. Altered mental status. 8. Thrombocytopenia. 9. Hx of CVA with dysphasia DW RN Subjective Subjective Alert in NAD. No events Objective Last 24 Hour Vital Signs Date Time Temp Pulse Resp B/P (MAP) Pulse Ox O2 Delivery O2 Flow Rate FiO2 01/26/19 12:00 96.8 68 18 118/78 (91) 98 01/26/19 10:08 96 129/98 01/26/19 09:00 Room Air 01/26/19 08:00 98.2 96 18 129/98 (108) 97 01/26/19 04:00 97.9 99 17 131/86 (101) 96 01/26/19 00:00 98.3 88 18 144/80 (101) 96 01/25/19 21:20 77 110/66 01/25/19 21:00 Room Air 01/25/19 20:00 97.8 77 18 110/66 (81) 98 Intake and Output 01/25/19 01/26/19 19:00 07:00 Intake Total 860 ml Output Total 800 ml 400 ml Balance 60 ml -400 ml Intake Oral 860 ml Output Urine Total 800 ml 400 ml # Bowel Movements 1 Laboratory Tests Test 01/26/19 15:40 C-Reactive Protein, Quantitative Pending Objective HEAD AND NECK: Mild JVD. LUNGS: Decreased breath sounds. CARDIOVASCULAR: Irregular S1 and S2 with no gallop. ICD in left subclavian. ABDOMEN: Soft. EXTREMITIES: No pitting edema. Gabe Hi MD Jan 26, 2019 16:06
--- NOTE | 2019-01-26 19:31 | NUR ---
HAND-OFF: Report given to RADAMES Watkins.
[2019-01-26 20:00] VITALS: BP 124/78
[2019-01-26] MEDS: Dyna-Hex 2% Top Sol 2oz TOPIC SCH (20:00)
--- NOTE | 2019-01-26 22:41 | General Progress Note ---
Assessment/Plan Assessment/Plan #Severe Sepsis #MSSA pneumonia, possibly due to aspiration #E. coli UTI #Acute metabolic encephalopathy superimposed on severe dementia -completed abx course -observe off antibiotics -aspiration precautions -pt pulled out NGT, cont liquify pureed, able to eat with at bedside -discussed with and sons, does not want PEG #Hypernatremia -resolved -monitor BMP -Nephrology following #Chronic sCHF s/p AICD #Atrial fibrillation #HTN #CAD -HTN controlled -Continue Coreg -Cardiology eval appreciated -not on AC due to thrombocytopenia -off tele #Dispo -awaiting placement VTE PPx Heparin SC DNR/DNI I spent 45 min on this patients care, and 34 min was dedicated to counseling and /or care coordination Subjective Allergies: Coded Allergies: No Known Allergies (Unverified , 01/06/19) All Systems: reviewed and negative except above Subjective No acute overnight events, has no complaints, discussed with sons and , would like SNF near [place], discussed with cm, pending placement Objective Last 24 Hour Vital Signs Date Time Temp Pulse Resp B/P (MAP) Pulse Ox O2 Delivery O2 Flow Rate FiO2 01/26/19 21:21 75 124/70 01/26/19 21:00 Room Air 01/26/19 20:00 98.0 75 20 124/78 (93) 98 01/26/19 16:00 98.6 93 18 126/88 (101) 98 01/26/19 12:00 96.8 68 18 118/78 (91) 98 01/26/19 10:08 96 129/98 01/26/19 09:00 Room Air 01/26/19 08:00 98.2 96 18 129/98 (108) 97 01/26/19 04:00 97.9 99 17 131/86 (101) 96 01/26/19 00:00 98.3 88 18 144/80 (101) 96 Intake and Output 01/25/19 01/26/19 19:00 07:00 Intake Total 860 ml Output Total 800 ml 400 ml Balance 60 ml -400 ml Intake Oral 860 ml Output Urine Total 800 ml 400 ml # Bowel Movements 1 Laboratory Tests 01/26/19 15:40: C-Reactive Protein, Quantitative 2.7H Height (Feet): 5 Height (Inches): 2.00 Weight (Pounds): 200 Objective General: alert, cooperative, no distress, appears stated age Head: normocephalic, without obvious abnormality, atraumatic Eyes: conjunctivae/corneas clear. PERRL, EOM's intact Throat: lips, mucosa, and tongue normal. MMM Neck: supple, symmetrical, trachea midline, and no JVD Lungs: clear to auscultation bilaterally Heart: regular rate and rhythm, S1, S2 normal, no murmur, click, rub or gallop Abdomen: soft, non-tender, non-distended, bowel sounds normal; no masses or organomegaly Extremities: extremities normal, atraumatic, no cyanosis or edema Pulses: 2+ and symmetric Skin: skin color, texture, turgor normal; no rashes or lesions Neurologic: grossly normal, no focal deficits Tamanna Ontiveros MD Jan 26, 2019 22:41
[2019-01-27 00:27] VITALS: BP 130/64
[2019-01-27 04:00] VITALS: BP 132/69
[2019-01-27 06:15] LABS: BASOPHILS % (AUTO) 0.7 % (0.0-2.0); EOSINOPHILS % (AUTO) 3.4 % (0.0-3.0); HEMATOCRIT 27.6 % (37.0-47.0); HEMOGLOBIN 8.4 G/DL (12.0-16.0); LYMPHOCYTES % (AUTO) 19.9 % (20.0-45.0); MEAN CORPUSCULAR VOLUME 102 FL (80-99); MONOCYTES % (AUTO) 8.7 % (1.0-10.0); NEUTROPHILS % (AUTO) 67.3 % (45.0-75.0); PLATELET COUNT 161 K/UL (150-450); RED CELL DISTRIBUTION WIDTH 17.1 % (11.6-14.8); WHITE BLOOD COUNT 4.5 K/UL (4.8-10.8)
[2019-01-27 06:36] LABS: ANION GAP 6 mmol/L (5-15); BLOOD UREA NITROGEN 17 mg/dL (7-18); CARBON DIOXIDE 25 MMOL/L (21-32); CHLORIDE 109 MMOL/L (98-107); CREATININE 1.1 MG/DL (0.55-1.30); POTASSIUM 4.2 MMOL/L (3.5-5.1); SODIUM 140 MMOL/L (136-145)
[2019-01-27 06:39] LABS: AMMONIA 19 umol/L (11-32)
[2019-01-27 06:52] LABS: ALANINE AMINOTRANSFERASE 7 U/L (12-78); ALBUMIN 1.9 G/DL (3.4-5.0); ALKALINE PHOSPHATASE 95 U/L (46-116); ASPARTATE AMINO TRANSFERASE 18 U/L (15-37); BILIRUBIN,DIRECT 0.2 MG/DL (0.0-0.3); BILIRUBIN,TOTAL 0.4 MG/DL (0.2-1.0); PHOSPHORUS 2.5 MG/DL (2.5-4.9)
[2019-01-27 07:00] VITALS: BP 136/66
--- NOTE | 2019-01-27 07:30 | NUR ---
NURSE NOTES: Pt requires to be repositioned. Unable to determine baseline mental status , pt is a taiwanese speaker talking to self. All anticipated needs may require to be met
--- NOTE | 2019-01-27 11:37 | Nephrology Progress Note ---
Assessment/Plan Problem List: (1) Acute renal failure Assessment: resolving (2) Dehydration (3) Hypernatremia (4) Anemia Assessment: worsening Assessment acute Renal Failure Cr lowering Sepsis / UTI / Pneumonia Acute metabolic Encephalopathy Hypernatremia AICD AT FIB CAD HTN presents with Low BP Anemia DNR DNI Plan labs reviewed k Phos IV as needed stop IV fluids watch for chf pendleton hold mind altering meds pepcid DC Motrin !!! DC planning Subjective ROS Limited/Unobtainable: No Constitutional: Reports: malaise, weakness Objective Objective Last 24 Hour Vital Signs Date Time Temp Pulse Resp B/P (MAP) Pulse Ox O2 Delivery O2 Flow Rate FiO2 01/27/19 10:05 76 122/64 01/27/19 04:00 97.7 77 18 132/69 (90) 99 01/27/19 00:27 97.9 71 20 130/64 (86) 98 01/26/19 21:21 75 124/70 01/26/19 21:00 Room Air 01/26/19 20:00 98.0 75 20 124/78 (93) 98 01/26/19 16:00 98.6 93 18 126/88 (101) 98 01/26/19 12:00 96.8 68 18 118/78 (91) 98 Intake and Output 01/26/19 01/27/19 18:59 06:59 Intake Total 860 ml Output Total 800 ml 750 ml Balance 60 ml -750 ml Intake Oral 860 ml Output Urine Total 800 ml 750 ml # Bowel Movements 1 Laboratory Tests 01/26/19 15:40: C-Reactive Protein, Quantitative 2.7H 01/27/19 05:30: White Blood Count 4.5L, Red Blood Count 2.70L, Hemoglobin 8.4L, Hematocrit 27.6L , Mean Corpuscular Volume 102H, Mean Corpuscular Hemoglobin 31.1H, Mean Corpuscular Hemoglobin Concent 30.3L, Red Cell Distribution Width 17.1H, Platelet Count 161, Mean Platelet Volume 6.5, Neutrophils (%) (Auto) 67.3, Lymphocytes (%) (Auto) 19.9L, Monocytes (%) (Auto) 8.7, Eosinophils (%) (Auto) 3.4H, Basophils (%) (Auto) 0.7, Sodium Level 140, Potassium Level 4.2, Chloride Level 109H, Carbon Dioxide Level 25, Anion Gap 6, Blood Urea Nitrogen 17, Creatinine 1.1, Estimat Glomerular Filtration Rate , Glucose Level 99, Uric Acid 5.4, Calcium Level 9.0, Phosphorus Level 2.5, Magnesium Level 1.7L, Total Bilirubin 0.4, Direct Bilirubin 0.2, Aspartate Amino Transf (AST/SGOT) 18, Alanine Aminotransferase (ALT/SGPT) 7L, Alkaline Phosphatase 95, Ammonia 19, Pro -B-Type Natriuretic Peptide 70909Y, Total Protein 5.7L, Albumin 1.9L Height (Feet): 5 Height (Inches): 2.00 Weight (Pounds): 200 General Appearance: no apparent distress Cardiovascular: normal rate Respiratory/Chest: decreased breath sounds Abdomen: soft Objective no change Noe Wells MD Jan 27, 2019 11:37
[2019-01-27 12:00] VITALS: BP 124/63
--- NOTE | 2019-01-27 14:01 | Infectious Diseases Prog Note ---
Assessment/Plan Assessment/Plan ASSESSMENT AND PLAN: 1. e.coli uti, staph aureus pna/MSSA, possible aspiration pna with jennifer-hilar infiltrate, sepsis, sirs, leukopenia, hypothermia, ams/lethargy - s/p ancef and flagyl - s/p full course abx for mssa and aspiration pna - chest x-ray with chf/pvc findings now - poor oral intake - f/u on labs, monitor chest x-ray as indicated - clinically seems stable, no sig sob or congestion - remains stable off abx, respiratory status stable, no fevers - will sign off, call if questions - thank you 2. The patient has severe hypernatremia. 3. Dehydration. 4. Acute kidney injury. 5. Elevated creatinine. 6. Intravenous fluids. 7. Hypothermia. 8. Pancytopenia. Workup per Hematology/Oncology. 9. Hypertension. 10. Coronary artery disease. 11. Congestive heart failure. 12. Automatic implanted cardioverter. 13. Subdural hematoma. 14. Severe dementia. 15. Aspiration risk. 16. No known drug allergies. 17. Social history is negative. 18. Family history is noncontributory. 19. MAR was noted. 20. Case was discussed with RN. 21. Encephalopathy. 22. Skin care protocol. 23. The patient is DNR/DNI. 24. aspiration precautions 25. mrsa colonization 26. wound care per protocol - sacral wound noted and not acutely infected Subjective Constitutional: Denies: fever HEENT: Denies: congestion Respiratory: Denies: shortness of breath Cardiovascular: Denies: chest pain Gastrointestinal/Abdominal: Denies: nausea, vomiting, diarrhea Genitourinary: Reports: other - + pendleton Neurologic: Denies: headache Psychiatric: Denies: depression Skin: Denies: rash Hematologic: Denies: bleeding Musculoskeletal: Denies: pain Allergies: Coded Allergies: No Known Allergies (Unverified , 01/06/19) Objective Vital Signs Last 24 Hour Vital Signs Date Time Temp Pulse Resp B/P (MAP) Pulse Ox O2 Delivery O2 Flow Rate FiO2 01/27/19 10:05 76 122/64 01/27/19 07:00 97.8 73 22 136/66 (89) 01/27/19 04:00 97.7 77 18 132/69 (90) 99 01/27/19 00:27 97.9 71 20 130/64 (86) 98 01/26/19 21:21 75 124/70 01/26/19 21:00 Room Air 01/26/19 20:00 98.0 75 20 124/78 (93) 98 01/26/19 16:00 98.6 93 18 126/88 (101) 98 Height (Feet): 5 Height (Inches): 2.00 Weight (Pounds): 200 General Appearance: no acute distress HEENT: normocephalic, atraumatic, anicteric, mucous membranes moist Respiratory/Chest: lungs clear, normal breath sounds, no respiratory distress, no accessory muscle use Cardiovascular: normal rate, regular rhythm, no gallop/murmur, no JVD Abdomen: normal bowel sounds, soft, non tender, no organomegaly, non distended Genitourinary: other - + pendleton - urine clear Extremities: no cyanosis Skin: no rash Neurologic/Psychiatric: 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 Surgical clips are seen in the left axilla. The heart is borderline enlarged. The lungs demonstrate possible hazy infiltrate in left perihilar region Impression: Possible left perihilar infiltrate Borderline cardiomegaly Other findings as noted 01/12 - chest x-ray - Comparison: 01/10/2019 Findings: The heart is enlarged. There is patchy parenchymal opacity in the left suprahilar region which is not evident previously. There is equivocal minimal interstitial congestive change. The lungs and pleural spaces are otherwise grossly clear, although a pacemaker obscures much of the left lung. Surgical clips are seen in the left chest wall Impression: New or increased patchy left suprahilar opacity Equivocal minimal interstitial congestion Chest x-ray - 01/14/19 - Findings: Again demonstrated is a left chest AICD with epicardial leads. Surgical clips are seen in the left axilla. The heart is enlarged. The lungs and pleural spaces are clear. There is a right arm PICC Impression: No acute process Cardiomegaly Other findings as noted Chest x-ray - 01/21/19 Findings: Left chest AICD, right arm PICC again demonstrated. Interim development of small left pleural effusion. There may be some hazy infiltrate developing in the left perihilar region, although this is largely obscured by the pacemaker. The heart is enlarged.. Impression: New small left pleural effusion Possible left perihilar hazy infiltrate, also new 01/23/19 - FINDINGS: Lungs: Mild vascular congestion. No consolidation. Pleural space: Tiny bilateral pleural effusions. No pneumothorax. Heart: Cardiomegaly. Mediastinum: Unremarkable. Bones/joints: Unremarkable. Soft tissues: Left axillary surgical clips. Tubes, lines and devices: Cardiac pacemaker. Stable right PICC line. IMPRESSION: Mild vascular and interstitial congestion with tiny bilateral pleural effusions. Slightly worsening CHF. Microbiology Date/Time Source Procedure Growth Status 01/06/19 17:25 Blood Blood Culture - Final NO GROWTH AFTER 5 DAYS Complete 01/08/19 07:00 Sputum Induced Gram Stain - Final Complete 01/08/19 07:00 Sputum Culture - Final Staphylococcus Aureus Complete 01/07/19 11:30 Urine,Clean Catch Urine Culture - Final Escherichia Coli Complete 01/06/19 18:10 Rectum VRE Culture - Final NO VANCOMYCIN RESISTANT ENTEROCOCCUS ... Complete 01/06/19 18:10 Rectum - Final NO CARBAPENEM-RESISTANT ENTEROBACTERI... Complete Laboratory Tests Test 01/26/19 15:40 01/27/19 05:30 C-Reactive Protein, Quantitative 2.7 mg/dL (0.00-0.90) H White Blood Count 4.5 K/UL (4.8-10.8) L Red Blood Count 2.70 M/UL (4.20-5.40) L Hemoglobin 8.4 G/DL (12.0-16.0) L Hematocrit 27.6 % (37.0-47.0) L Mean Corpuscular Volume 102 FL (80-99) H Mean Corpuscular Hemoglobin 31.1 PG (27.0-31.0) H Mean Corpuscular Hemoglobin Concent 30.3 G/DL (32.0-36.0) L Red Cell Distribution Width 17.1 % (11.6-14.8) H Platelet Count 161 K/UL (150-450) Mean Platelet Volume 6.5 FL (6.5-10.1) Neutrophils (%) (Auto) 67.3 % (45.0-75.0) Lymphocytes (%) (Auto) 19.9 % (20.0-45.0) L Monocytes (%) (Auto) 8.7 % (1.0-10.0) Eosinophils (%) (Auto) 3.4 % (0.0-3.0) H Basophils (%) (Auto) 0.7 % (0.0-2.0) Sodium Level 140 MMOL/L (136-145) Potassium Level 4.2 MMOL/L (3.5-5.1) Chloride Level 109 MMOL/L (98-107) H Carbon Dioxide Level 25 MMOL/L (21-32) Anion Gap 6 mmol/L (5-15) Blood Urea Nitrogen 17 mg/dL (7-18) Creatinine 1.1 MG/DL (0.55-1.30) Estimat Glomerular Filtration Rate mL/min (>60) Glucose Level 99 MG/DL (74-106) Uric Acid 5.4 MG/DL (2.6-7.2) Calcium Level 9.0 MG/DL (8.5-10.1) Phosphorus Level 2.5 MG/DL (2.5-4.9) Magnesium Level 1.7 MG/DL (1.8-2.4) L Total Bilirubin 0.4 MG/DL (0.2-1.0) Direct Bilirubin 0.2 MG/DL (0.0-0.3) Aspartate Amino Transf (AST/SGOT) 18 U/L (15-37) Alanine Aminotransferase (ALT/SGPT) 7 U/L (12-78) L Alkaline Phosphatase 95 U/L (46-116) Ammonia 19 umol/L (11-32) Pro-B-Type Natriuretic Peptide 58553 pg/mL (0-125) H Total Protein 5.7 G/DL (6.4-8.2) L Albumin 1.9 G/DL (3.4-5.0) L Current Medications Medications (Trade) Dose Ordered Sig/Nuria Route PRN Reason Start Time Stop Time Status Last Admin Dose Admin Carvedilol (Coreg) 3.125 mg EVERY 12 HOURS ORAL 01/13/19 21:00 02/12/19 20:59 01/27/19 10:05 Chlorhexidine Gluconate (Kaylee-Hex 2%) 1 applic DAILY@1999 TOPIC 01/13/19 20:00 02/12/19 19:59 3/12/19 20:00 Dextrose (Dextrose 50%) 25 ml Q30M PRN IV Hypoglycemia 01/13/19 04:00 02/05/19 18:59 Dextrose (Dextrose 50%) 50 ml Q30M PRN IV Hypoglycemia 01/13/19 04:00 02/05/19 18:59 Famotidine (Pepcid) 20 mg BID ORAL 01/23/19 18:00 02/22/19 17:59 01/27/19 10:05 Ninfa Vences MD Jan 27, 2019 14:01
--- NOTE | 2019-01-27 14:16 | NUR ---
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 [id number] IS: FAMOTIDINE 20mg COREG 3.125mg MAGNESIUM SULFATE 100ml MED/SURG STATUS
--- NOTE | 2019-01-27 14:26 | General Progress Note ---
Assessment/Plan Assessment/Plan Assessment/Plan: # Severe Pancytopenia -- multiple etiologies could be related to underlying liver disease, medication-induced, infection versus viral syndrome, ID with abx now --> peripheral smear has been ordered and does not show significant abnormalities, however concerning Ca++ elevated --> SPEP is negative for bands --> Continue to monitor for improvement, trend cbc --> Hep panel and HIV are both negative --> US abd ordered to r/o cirrhosis and hepatosplenomegaly does not show it --> consider other causes, infections that could contribute --> reverse isolation if ANC is <2000 --> Give neupogen if ANC <1000 --> Transfuse if hgb <7, with 1 unit prbc --> plts have improved, thus was likely reactive process # Coagulation defect, unspecified (D68.9) aka coagulopathy, multifactorial usually related to poor PO intake versus medications, versus hepatitis v cirrhosis --> administer Vitamin K if patient is bleeding or FFP if the INR is >10 --> hold off on ffp unless active procedure/bleeding, first begin with vit K 10 --> mixing study as needed # Severe Sepsis woth likely hcap --> on abx as per ID team --> 01/20 is last day of abx # Acute metabolic encephalopathy superimposed on severe dementia --> on IV antibiotics to vanco and meropenem--> cefazolin --> check blood cultures, serial lactate and PCT # Hypernatremia --> on fluids as per nephro # Chronic sCHF s/p AICD --> off anticoagulation, reviewed recs of Dr. Hi --> okay to restart given potentially benefit outweighs risk --> appreciate cardiology recs # Atrial fibrillation # VINH --> currently improving The timing of this note does not necessarily reflect the time of the patient was seen. Greatly appreciate consultation! Subjective ROS Limited/Unobtainable: Yes Allergies: Coded Allergies: No Known Allergies (Unverified , 01/06/19) Subjective 01/08: pending lab workup, us of the abd pending, spep and dic panel pending 01/10: Seen by bedside, remains lethargic, no acute distress, plt remains low at 46 01/11: resting in bed, no acute distress, plt trending down 38 01/12: awake, comfortable, no acute distress noted, plt trending up 01/13: seen by bedside, awake, comfortable, no acute distress. 01/14: NG tube insertion, Pt is lethargic, plt trending up, hgb 7.7 01/15: lethargic, on 2L NC, no events, pending cbc today 01/17: plts are up trending, hgb 7.6, no events 01/18: seen by bedside, hgb 7.6, plt trending up, no events 01/20: out of the icu, completing abx today, feeling better, plt better 01/21: seen by bedside, awake, comfortable, plt trending up , hgb 7.8 01/22: Pt is awake, comfortable, no acute distress reported 01/24: awake, comfortable, no events reported, at bedside 01/25: Pt resting in bed, no distress reported, pending labs 01/26: resting in bed, comfortable, no events 01/27: awake, comfortable, no acute distress reported. Objective Last 24 Hour Vital Signs Date Time Temp Pulse Resp B/P (MAP) Pulse Ox O2 Delivery O2 Flow Rate FiO2 01/27/19 10:05 76 122/64 01/27/19 07:00 97.8 73 22 136/66 (89) 01/27/19 04:00 97.7 77 18 132/69 (90) 99 01/27/19 00:27 97.9 71 20 130/64 (86) 98 01/26/19 21:21 75 124/70 01/26/19 21:00 Room Air 01/26/19 20:00 98.0 75 20 124/78 (93) 98 01/26/19 16:00 98.6 93 18 126/88 (101) 98 Intake and Output 01/26/19 01/27/19 18:59 06:59 Intake Total 860 ml Output Total 800 ml 750 ml Balance 60 ml -750 ml Intake Oral 860 ml Output Urine Total 800 ml 750 ml # Bowel Movements 1 Laboratory Tests 01/26/19 15:40: C-Reactive Protein, Quantitative 2.7H 01/27/19 05:30: White Blood Count 4.5L, Red Blood Count 2.70L, Hemoglobin 8.4L, Hematocrit 27.6L , Mean Corpuscular Volume 102H, Mean Corpuscular Hemoglobin 31.1H, Mean Corpuscular Hemoglobin Concent 30.3L, Red Cell Distribution Width 17.1H, Platelet Count 161, Mean Platelet Volume 6.5, Neutrophils (%) (Auto) 67.3, Lymphocytes (%) (Auto) 19.9L, Monocytes (%) (Auto) 8.7, Eosinophils (%) (Auto) 3.4H, Basophils (%) (Auto) 0.7, Sodium Level 140, Potassium Level 4.2, Chloride Level 109H, Carbon Dioxide Level 25, Anion Gap 6, Blood Urea Nitrogen 17, Creatinine 1.1, Estimat Glomerular Filtration Rate , Glucose Level 99, Uric Acid 5.4, Calcium Level 9.0, Phosphorus Level 2.5, Magnesium Level 1.7L, Total Bilirubin 0.4, Direct Bilirubin 0.2, Aspartate Amino Transf (AST/SGOT) 18, Alanine Aminotransferase (ALT/SGPT) 7L, Alkaline Phosphatase 95, Ammonia 19, Pro -B-Type Natriuretic Peptide [id number], Total Protein 5.7L, Albumin 1.9L Height (Feet): 5 Height (Inches): 2.00 Weight (Pounds): 200 Objective PE General Appearance: lethargic ++2l NC Lines, tubes and drains: peripheral HEENT: normocephalic, atraumatic. NG tube insertion Neck: normal alignment Respiratory/Chest: lungs clear, normal breath sounds Cardiovascular/Chest: normal peripheral pulses, normal rate Abdomen: non tender, soft, no organomegaly Extremities: non-tender, normal inspection : Blane Peralta MD Jan 27, 2019 14:26
--- NOTE | 2019-01-27 15:17 | NUR ---
P.T Note: P.T evaluation completed and treatment initiated. Please refer to P.T evaluation for current functional status. Recommend SNF for further rehab at [place].
[2019-01-27 16:00] VITALS: BP 140/69
--- NOTE | 2019-01-27 17:00 | Cardiology Progress Note ---
Assessment/Plan Status: stable Assessment/Plan Assessment/Plan Assessment/Plan 1. Atrial fibrillation. On Coreg and off anticoagulation for thrombocytopenia 2. Status post Medtronic biventricular ICD. No shocks 3. Congestive heart failure. BNP > 7200. EF 35%. On Coreg 4. Severe hypernatremia and renal failure. On IV fluids per Dr. Wells. 5. History of hypertension. On Coreg 6. MRSA PNA on Abx 7. Altered mental status. 8. Thrombocytopenia. 9. Hx of CVA with dysphasia Subjective Cardiovascular: Reports: no symptoms Respiratory: Reports: no symptoms Gastrointestinal/Abdominal: Reports: no symptoms Genitourinary: Reports: no symptoms Subjective Coverage for [place] Objective Last 24 Hour Vital Signs Date Time Temp Pulse Resp B/P (MAP) Pulse Ox O2 Delivery O2 Flow Rate FiO2 01/27/19 12:00 97.8 68 18 124/63 (83) 01/27/19 10:05 76 122/64 01/27/19 09:00 Room Air 01/27/19 07:00 97.8 73 22 136/66 (89) 01/27/19 04:00 97.7 77 18 132/69 (90) 99 01/27/19 00:27 97.9 71 20 130/64 (86) 98 01/26/19 21:21 75 124/70 01/26/19 21:00 Room Air 01/26/19 20:00 98.0 75 20 124/78 (93) 98 General Appearance: no apparent distress, alert EENT: PERRL/EOMI, normal ENT inspection Neck: non-tender, normal alignment, supple Cardiovascular: normal peripheral pulses, normal rate, regular rhythm Respiratory/Chest: chest wall non-tender, lungs clear, normal breath sounds, respiratory distress Abdomen: normal bowel sounds, non tender Extremities: normal range of motion, non-tender Neurologic: climbing guide II-XII grossly normal, no motor/sensory deficits Intake and Output 01/26/19 01/27/19 18:59 06:59 Intake Total 860 ml Output Total 800 ml 750 ml Balance 60 ml -750 ml Intake Oral 860 ml Output Urine Total 800 ml 750 ml # Bowel Movements 1 Laboratory Tests Test 01/27/19 05:30 White Blood Count 4.5 K/UL (4.8-10.8) L Red Blood Count 2.70 M/UL (4.20-5.40) L Hemoglobin 8.4 G/DL (12.0-16.0) L Hematocrit 27.6 % (37.0-47.0) L Mean Corpuscular Volume 102 FL (80-99) H Mean Corpuscular Hemoglobin 31.1 PG (27.0-31.0) H Mean Corpuscular Hemoglobin Concent 30.3 G/DL (32.0-36.0) L Red Cell Distribution Width 17.1 % (11.6-14.8) H Platelet Count 161 K/UL (150-450) Mean Platelet Volume 6.5 FL (6.5-10.1) Neutrophils (%) (Auto) 67.3 % (45.0-75.0) Lymphocytes (%) (Auto) 19.9 % (20.0-45.0) L Monocytes (%) (Auto) 8.7 % (1.0-10.0) Eosinophils (%) (Auto) 3.4 % (0.0-3.0) H Basophils (%) (Auto) 0.7 % (0.0-2.0) Sodium Level 140 MMOL/L (136-145) Potassium Level 4.2 MMOL/L (3.5-5.1) Chloride Level 109 MMOL/L (98-107) H Carbon Dioxide Level 25 MMOL/L (21-32) Anion Gap 6 mmol/L (5-15) Blood Urea Nitrogen 17 mg/dL (7-18) Creatinine 1.1 MG/DL (0.55-1.30) Estimat Glomerular Filtration Rate mL/min (>60) Glucose Level 99 MG/DL (74-106) Uric Acid 5.4 MG/DL (2.6-7.2) Calcium Level 9.0 MG/DL (8.5-10.1) Phosphorus Level 2.5 MG/DL (2.5-4.9) Magnesium Level 1.7 MG/DL (1.8-2.4) L Total Bilirubin 0.4 MG/DL (0.2-1.0) Direct Bilirubin 0.2 MG/DL (0.0-0.3) Aspartate Amino Transf (AST/SGOT) 18 U/L (15-37) Alanine Aminotransferase (ALT/SGPT) 7 U/L (12-78) L Alkaline Phosphatase 95 U/L (46-116) Ammonia 19 umol/L (11-32) Pro-B-Type Natriuretic Peptide 97953 pg/mL (0-125) H Total Protein 5.7 G/DL (6.4-8.2) L Albumin 1.9 G/DL (3.4-5.0) L Rodrigo Capone MD Jan 27, 2019 17:00
--- NOTE | 2019-01-27 19:39 | NUR ---
NURSE NOTES: Received patient in bed, asleep, oriented to her name only, [place] speaking, no acute distress noted. Call light is within reach, bed is in low position, locked, alarm is on. Will continue to monitor for safety and comfort.
[2019-01-27 20:00] VITALS: BP 145/75
[2019-01-27] MEDS: Dyna-Hex 2% Top Sol 2oz TOPIC SCH (20:00)
--- NOTE | 2019-01-27 20:12 | General Progress Note ---
Assessment/Plan Assessment/Plan #Severe Sepsis #MSSA pneumonia, possibly due to aspiration #E. coli UTI #Acute metabolic encephalopathy superimposed on severe dementia -completed abx course -observe off antibiotics -aspiration precautions -pt pulled out NGT, cont liquify pureed, able to eat with / sons at bedside -discussed with and sons, does not want PEG #Hypernatremia -resolved -monitor BMP -Nephrology following #Hypomag -REpleted -CTM #Chronic sCHF s/p AICD #Atrial fibrillation #HTN #CAD -HTN controlled -Continue Coreg -Cardiology eval appreciated -not on AC due to thrombocytopenia -off tele #Dispo -awaiting placement VTE PPx Heparin SC DNR/DNI I spent 45 min on this patients care, and 34 min was dedicated to counseling and /or care coordination Subjective Allergies: Coded Allergies: No Known Allergies (Unverified , 01/06/19) Subjective No acute overnight events, has no complaints, discussed with sons and , would like SNF near [place], discussed with cm, pending placement Objective Last 24 Hour Vital Signs Date Time Temp Pulse Resp B/P (MAP) Pulse Ox O2 Delivery O2 Flow Rate FiO2 01/27/19 16:00 97.8 72 20 140/69 (92) 96 01/27/19 12:00 97.8 68 18 124/63 (83) 01/27/19 10:05 76 122/64 01/27/19 09:00 Room Air 01/27/19 07:00 97.8 73 22 136/66 (89) 01/27/19 04:00 97.7 77 18 132/69 (90) 99 01/27/19 00:27 97.9 71 20 130/64 (86) 98 01/26/19 21:21 75 124/70 01/26/19 21:00 Room Air Intake and Output 01/26/19 01/27/19 19:00 07:00 Intake Total 860 ml Output Total 800 ml 750 ml Balance 60 ml -750 ml Intake Oral 860 ml Output Urine Total 800 ml 750 ml # Bowel Movements 1 Laboratory Tests 01/27/19 05:30: White Blood Count 4.5L, Red Blood Count 2.70L, Hemoglobin 8.4L, Hematocrit 27.6L , Mean Corpuscular Volume 102H, Mean Corpuscular Hemoglobin 31.1H, Mean Corpuscular Hemoglobin Concent 30.3L, Red Cell Distribution Width 17.1H, Platelet Count 161, Mean Platelet Volume 6.5, Neutrophils (%) (Auto) 67.3, Lymphocytes (%) (Auto) 19.9L, Monocytes (%) (Auto) 8.7, Eosinophils (%) (Auto) 3.4H, Basophils (%) (Auto) 0.7, Sodium Level 140, Potassium Level 4.2, Chloride Level 109H, Carbon Dioxide Level 25, Anion Gap 6, Blood Urea Nitrogen 17, Creatinine 1.1, Estimat Glomerular Filtration Rate , Glucose Level 99, Uric Acid 5.4, Calcium Level 9.0, Phosphorus Level 2.5, Magnesium Level 1.7L, Total Bilirubin 0.4, Direct Bilirubin 0.2, Aspartate Amino Transf (AST/SGOT) 18, Alanine Aminotransferase (ALT/SGPT) 7L, Alkaline Phosphatase 95, Ammonia 19, Pro -B-Type Natriuretic Peptide [id number], Total Protein 5.7L, Albumin 1.9L Height (Feet): 5 Height (Inches): 2.00 Weight (Pounds): 200 Objective General: alert, cooperative, no distress, appears stated age Head: normocephalic, without obvious abnormality, atraumatic Eyes: conjunctivae/corneas clear. PERRL, EOM's intact Throat: lips, mucosa, and tongue normal. MMM Neck: supple, symmetrical, trachea midline, and no JVD Lungs: clear to auscultation bilaterally Heart: regular rate and rhythm, S1, S2 normal, no murmur, click, rub or gallop Abdomen: soft, non-tender, non-distended, bowel sounds normal; no masses or organomegaly Extremities: extremities normal, atraumatic, no cyanosis or edema Pulses: 2+ and symmetric Skin: skin color, texture, turgor normal; no rashes or lesions Neurologic: grossly normal, no focal deficits Tamanna Ontiveros MD Jan 27, 2019 20:12
--- NOTE | 2019-01-27 20:39 | NUR ---
NURSE NOTES: All anticipated needs required to be met. Ao to name only. Family at bedside today. Pushed handbook writer hand during attempt to provide iv therapy. repostioned through out shift. Pending discharge planning . Seen by Pt earlier in shift
--- NOTE | 2019-01-27 20:41 | NUR ---
HAND-OFF: Report given to Krystle CRUM.
[2019-01-28] VITALS: BP 120/68
[2019-01-28 04:00] VITALS: BP 116/72
--- NOTE | 2019-01-28 06:54 | NUR ---
HAND-OFF: Report given to Beti CRUM.
--- NOTE | 2019-01-28 07:52 | NUR ---
NURSE NOTES: Pt requires complete assistance for ADls . Al anticipated needs require to be met. can not verbalize known needs 2 to baseline mental status
[2019-01-28 08:00] VITALS: BP 147/77
--- NOTE | 2019-01-28 08:47 | NUR ---
NURSE NOTES: [facility] attempted to feed pt clenching teeth, and turning head. Fluids attempted to be offered pt does not understand commands to drink. Fluids placed to mouth and pt turns head . Ate minimally roughly 120 cc of hot cereal and roughly 30 cc of fluids
[2019-01-28 12:00] VITALS: BP 115/80
--- NOTE | 2019-01-28 13:04 | NUR ---
*-* INSURANCE *-* UPDATED REVIEWS HAVE BEEN FAXED TO: [facility]: ROCAEL F:[phone] P:[phone]
--- NOTE | 2019-01-28 15:29 | Nephrology Progress Note ---
Assessment/Plan Problem List: (1) Acute renal failure Assessment: resolving (2) Dehydration (3) Hypernatremia (4) Anemia Assessment: worsening Assessment acute Renal Failure Cr lowering Sepsis / UTI / Pneumonia Acute metabolic Encephalopathy Hypernatremia AICD AT FIB CAD HTN presents with Low BP Anemia DNR DNI Plan labs reviewed k Phos IV as needed stop IV fluids watch for chf [place] hold mind altering meds pepcid DC Motrin !!! DC planning Subjective ROS Limited/Unobtainable: No Constitutional: Reports: malaise Objective Objective Last 24 Hour Vital Signs Date Time Temp Pulse Resp B/P (MAP) Pulse Ox O2 Delivery O2 Flow Rate FiO2 01/28/19 09:00 Room Air 01/28/19 08:38 72 147/77 01/28/19 08:00 97.7 72 20 147/77 (100) 100 01/28/19 04:00 97.9 70 20 116/72 (87) 01/28/19 00:00 97.6 86 18 120/68 (85) 01/27/19 21:26 Room Air 01/27/19 21:23 68 145/75 01/27/19 20:00 97.5 68 18 145/75 (98) 01/27/19 16:00 97.8 72 20 140/69 (92) 96 Intake and Output 01/27/19 01/28/19 18:59 06:59 Intake Total 720 ml Output Total 500 ml Balance 220 ml Intake Oral 720 ml Output Urine Total 500 ml # Bowel Movements 1 Height (Feet): 5 Height (Inches): 2.00 Weight (Pounds): 200 General Appearance: no apparent distress Objective no change Noe Wells MD Jan 28, 2019 15:29
--- NOTE | 2019-01-28 15:44 | NUR ---
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
[2019-01-28 16:00] VITALS: BP 121/62
--- NOTE | 2019-01-28 18:02 | Cardiac Electrophysiology PN ---
Assessment/Plan Assessment/Plan 1. Atrial fibrillation. On Coreg and off anticoagulation for thrombocytopenia 2. Status post Medtronic biventricular ICD. No shocks 3. Congestive heart failure. BNP > 7200. EF 35%. On Coreg 4. Severe hypernatremia and renal failure. On IV fluids per Dr. Wells. 5. History of hypertension. On Coreg 6. MRSA PNA on Abx 7. Altered mental status. 8. Thrombocytopenia. 9. Hx of CVA with dysphasia DW RN and Subjective Subjective Alert in NAD. No CP or SOB. Objective Last 24 Hour Vital Signs Date Time Temp Pulse Resp B/P (MAP) Pulse Ox O2 Delivery O2 Flow Rate FiO2 01/28/19 16:00 97.2 77 20 121/62 (81) 95 01/28/19 12:00 98.2 74 18 115/80 (92) 98 01/28/19 09:00 Room Air 01/28/19 08:38 72 147/77 01/28/19 08:00 97.7 72 20 147/77 (100) 100 01/28/19 04:00 97.9 70 20 116/72 (87) 01/28/19 00:00 97.6 86 18 120/68 (85) 01/27/19 21:26 Room Air 01/27/19 21:23 68 145/75 01/27/19 20:00 97.5 68 18 145/75 (98) Intake and Output 01/27/19 01/28/19 18:59 06:59 Intake Total 720 ml Output Total 500 ml Balance 220 ml Intake Oral 720 ml Output Urine Total 500 ml # Bowel Movements 1 Objective HEAD AND NECK: Mild JVD. LUNGS: Decreased breath sounds. CARDIOVASCULAR: Irregular S1 and S2 with no gallop. ICD in left subclavian. ABDOMEN: Soft. EXTREMITIES: No pitting edema. Gabe Hi MD Jan 28, 2019 18:02
--- NOTE | 2019-01-28 19:12 | NUR ---
NURSE NOTES: All anticipated needs required to be met. Pt is nonverbal refused breakfast and lunch. Did eat 100 percent of dinner, here and fed pt. Current paln of care will be followed
--- NOTE | 2019-01-28 19:13 | NUR ---
HAND-OFF: Report given to Krystle Gonzalez.
--- NOTE | 2019-01-28 19:27 | NUR ---
NURSE NOTES: Received patient in bed, asleep, no acute distress noted, VSS, afebrile, call light is within reach, bed is in low position, locked and alarm is on. Will continue to monitor for safety and comfort.
[2019-01-28 20:00] VITALS: BP 135/90
[2019-01-28] MEDS: Dyna-Hex 2% Top Sol 2oz TOPIC SCH (20:25)
--- NOTE | 2019-01-28 20:27 | General Progress Note ---
Assessment/Plan Assessment/Plan Assessment/Plan: # Severe Pancytopenia -- multiple etiologies could be related to underlying liver disease, medication-induced, infection versus viral syndrome, ID with abx now --> peripheral smear has been ordered and does not show significant abnormalities, however concerning Ca++ elevated --> SPEP is negative for bands --> Continue to monitor for improvement, trend cbc --> Hep panel and HIV are both negative --> US abd ordered to r/o cirrhosis and hepatosplenomegaly does not show it --> consider other causes, infections that could contribute --> reverse isolation if ANC is <2000 --> Give neupogen if ANC <1000 --> Transfuse if hgb <7, with 1 unit prbc --> plts have improved, thus was likely reactive process # Coagulation defect, unspecified (D68.9) aka coagulopathy, multifactorial usually related to poor PO intake versus medications, versus hepatitis v cirrhosis --> administer Vitamin K if patient is bleeding or FFP if the INR is >10 --> hold off on ffp unless active procedure/bleeding, first begin with vit K 10 --> mixing study as needed # Severe Sepsis woth likely hcap --> on abx as per ID team --> / is last day of abx # Acute metabolic encephalopathy superimposed on severe dementia --> on IV antibiotics to vanco and meropenem--> cefazolin --> check blood cultures, serial lactate and PCT # Hypernatremia --> on fluids as per nephro # Chronic sCHF s/p AICD --> off anticoagulation, reviewed recs of Dr. Hi --> okay to restart given potentially benefit outweighs risk --> appreciate cardiology recs # Atrial fibrillation # VINH --> currently improving The timing of this note does not necessarily reflect the time of the patient was seen. Greatly appreciate consultation! Subjective ROS Limited/Unobtainable: Yes Constitutional: Denies: no symptoms, chills, diaphoresis, fever, malaise, weakness, other HEENT: Denies: no symptoms, eye pain, blurred vision, tearing, double vision, ear pain, ear discharge, nose pain, nose congestion, throat pain, throat swelling, mouth pain, mouth swelling, other Cardiovascular: Denies: no symptoms, chest pain, edema, irregular heart rate, lightheadedness, palpitations, syncope, other Respiratory: Denies: no symptoms, cough, orthopnea, shortness of breath, SOB with excertion, SOB at rest, sputum, stridor, wheezing, other Gastrointestinal/Abdominal: Denies: no symptoms, abdomen distended, abdominal pain, black stools, tarry stools, blood in stool, constipated, diarrhea, difficulty swallowing, nausea, poor appetite, poor fluid intake, rectal bleeding , vomiting, other Genitourinary: Denies: no symptoms, burning, discharge, frequency, flank pain, hematuria, incontinence, pain, urgency, other Neurologic/Psychiatric: Denies: no symptoms, anxiety, depressed, emotional problems, headache, numbness, paresthesia, pre-existing deficit, seizure, tingling, tremors, weakness, other Endocrine: Denies: no symptoms, excessive sweating, flushing, intolerance to cold, intolerance to heat, increased hunger, increased thirst, increased urine, unexplained weight gain, unexplained weight loss, other Hematologic/Lymphatic: Denies: no symptoms, anemia, easy bleeding, easy bruising, other Allergies: Coded Allergies: No Known Allergies (Unverified , 01/06/19) Subjective 01/08: pending lab workup, us of the abd pending, spep and dic panel pending 01/10: Seen by bedside, remains lethargic, no acute distress, plt remains low at 46 01/11: resting in bed, no acute distress, plt trending down 38 01/12: awake, comfortable, no acute distress noted, plt trending up 01/13: seen by bedside, awake, comfortable, no acute distress. 01/14: NG tube insertion, Pt is lethargic, plt trending up, hgb 7.7 01/15: lethargic, on 2L NC, no events, pending cbc today 01/17: plts are up trending, hgb 7.6, no events 01/18: seen by bedside, hgb 7.6, plt trending up, no events 01/20: out of the icu, completing abx today, feeling better, plt better 01/21: seen by bedside, awake, comfortable, plt trending up , hgb 7.8 01/22: Pt is awake, comfortable, no acute distress reported 01/24: awake, comfortable, no events reported, at bedside 01/25: Pt resting in bed, no distress reported, pending labs 01/26: resting in bed, comfortable, no events 01/27: awake, comfortable, no acute distress reported. 01/28: resting in bed, no events Objective Last 24 Hour Vital Signs Date Time Temp Pulse Resp B/P (MAP) Pulse Ox O2 Delivery O2 Flow Rate FiO2 01/28/19 16:00 97.2 77 20 121/62 (81) 95 01/28/19 12:00 98.2 74 18 115/80 (92) 98 01/28/19 09:00 Room Air 01/28/19 08:38 72 147/77 01/28/19 08:00 97.7 72 20 147/77 (100) 100 01/28/19 04:00 97.9 70 20 116/72 (87) 01/28/19 00:00 97.6 86 18 120/68 (85) 01/27/19 21:26 Room Air 01/27/19 21:23 68 145/75 Intake and Output 01/27/19 01/28/19 18:59 06:59 Intake Total 720 ml Output Total 500 ml Balance 220 ml Intake Oral 720 ml Output Urine Total 500 ml # Bowel Movements 1 Height (Feet): 5 Height (Inches): 2.00 Weight (Pounds): 200 Objective PE General Appearance: lethargic ++2l NC Lines, tubes and drains: peripheral HEENT: normocephalic, atraumatic. NG tube insertion Neck: normal alignment Respiratory/Chest: lungs clear, normal breath sounds Cardiovascular/Chest: normal peripheral pulses, normal rate Abdomen: non tender, soft, no organomegaly Extremities: non-tender, normal inspection : Blane Peralta MD Jan 28, 2019 20:27
--- NOTE | 2019-01-28 23:12 | General Progress Note ---
Assessment/Plan Assessment/Plan #Severe Sepsis #MSSA pneumonia, possibly due to aspiration #E. coli UTI #Acute metabolic encephalopathy superimposed on severe dementia -completed abx course -observe off antibiotics -aspiration precautions -pt pulled out NGT, cont liquify pureed, able to eat with / sons at bedside -discussed with and sons, does not want PEG #Hypernatremia -resolved -monitor BMP -Nephrology following #Hypomag -REpleted -CTM #Chronic sCHF s/p AICD #Atrial fibrillation #HTN #CAD -HTN controlled -Continue Coreg -Cardiology eval appreciated -not on AC due to thrombocytopenia -off tele #Dispo -awaiting placement -Pt from [facility] - discussed with business services sales representative, pts family would like her placed in [facility], business services sales representative states they have a sister facility in that area VTE PPx Heparin SC DNR/DNI I spent 45 min on this patients care, and 34 min was dedicated to counseling and /or care coordination Subjective Date patient seen: Jan 28, 2019 Allergies: Coded Allergies: No Known Allergies (Unverified , 01/06/19) Subjective No acute overnight events, has no complaints, discussed with sons and , would like SNF near [place], discussed with cm, pending placement Objective Last 24 Hour Vital Signs Date Time Temp Pulse Resp B/P (MAP) Pulse Ox O2 Delivery O2 Flow Rate FiO2 01/28/19 22:17 Room Air 01/28/19 20:27 81 135/90 01/28/19 20:00 97.9 81 20 135/90 (105) 01/28/19 16:00 97.2 77 20 121/62 (81) 95 01/28/19 12:00 98.2 74 18 115/80 (92) 98 01/28/19 09:00 Room Air 01/28/19 08:38 72 147/77 01/28/19 08:00 97.7 72 20 147/77 (100) 100 01/28/19 04:00 97.9 70 20 116/72 (87) 01/28/19 00:00 97.6 86 18 120/68 (85) Intake and Output 01/27/19 01/28/19 19:00 07:00 Intake Total 720 ml Output Total 500 ml Balance 220 ml Intake Oral 720 ml Output Urine Total 500 ml # Bowel Movements 1 Height (Feet): 5 Height (Inches): 2.00 Weight (Pounds): 200 Objective General: alert, cooperative, no distress, appears stated age Head: normocephalic, without obvious abnormality, atraumatic Eyes: conjunctivae/corneas clear. PERRL, EOM's intact Throat: lips, mucosa, and tongue normal. MMM Neck: supple, symmetrical, trachea midline, and no JVD Lungs: clear to auscultation bilaterally Heart: regular rate and rhythm, S1, S2 normal, no murmur, click, rub or gallop Abdomen: soft, non-tender, non-distended, bowel sounds normal; no masses or organomegaly Extremities: extremities normal, atraumatic, no cyanosis or edema Pulses: 2+ and symmetric Skin: skin color, texture, turgor normal; no rashes or lesions Neurologic: grossly normal, no focal deficits Tamanna Ontvieros MD Jan 28, 2019 23:12
[2019-01-29 00:35] VITALS: BP 130/88
[2019-01-29 04:00] VITALS: BP 148/81
[2019-01-29 08:00] VITALS: BP 149/73
[2019-01-29 08:54] LABS: ANION GAP 7 mmol/L (5-15); BLOOD UREA NITROGEN 13 mg/dL (7-18); CALCIUM 6.3 MG/DL (8.5-10.1); CARBON DIOXIDE 19 MMOL/L (21-32); CHLORIDE 119 MMOL/L (98-107); CREATININE 0.9 MG/DL (0.55-1.30); POTASSIUM 3.3 MMOL/L (3.5-5.1); SODIUM 145 MMOL/L (136-145)
[2019-01-29 08:58] LABS: BASOPHILS % (AUTO) 1.1 % (0.0-2.0); EOSINOPHILS % (AUTO) 1.7 % (0.0-3.0); HEMOGLOBIN 8.8 G/DL (12.0-16.0); LYMPHOCYTES % (AUTO) 14.8 % (20.0-45.0); MEAN CORPUSCULAR VOLUME 103 FL (80-99); MONOCYTES % (AUTO) 8.9 % (1.0-10.0); NEUTROPHILS % (AUTO) 73.5 % (45.0-75.0); PLATELET COUNT 159 K/UL (150-450); RED BLOOD COUNT 2.82 M/UL (4.20-5.40); RED CELL DISTRIBUTION WIDTH 17.5 % (11.6-14.8); WHITE BLOOD COUNT 5.4 K/UL (4.8-10.8)
--- NOTE | 2019-01-29 10:35 | NUR ---
TREASURER SAVINGS BANKPARAOPTOMETRIC SI:SEPSIS VS:BP 149/73, P 93, T 97.8, RR 20, SpO2 98 RBC 2.82, Hgb 8.8, Hct 29.0, K 3.3, Chloride 119, CO2 19, Ca 6.3 IS:COREG 3.125mg PEPCID 20mg K-DUR 40meq MED/SURG STATUS
--- NOTE | 2019-01-29 11:42 | Cardiac Electrophysiology PN ---
Assessment/Plan Assessment/Plan 1. Atrial fibrillation. On Coreg and off anticoagulation for thrombocytopenia 2. Status post Medtronic biventricular ICD. Nl Fx. No shocks 3. Congestive heart failure. BNP > 7200. EF 35%. On Coreg 4. Severe hypernatremia and renal failure. On IV fluids per Dr. Wells. 5. History of hypertension. On Coreg 6. MRSA PNA on Abx 7. Altered mental status. 8. Thrombocytopenia. 9. Hx of CVA with dysphasia DW RN Subjective Subjective Alert in NAD. No CP or SOB. RN at bedside Objective Last 24 Hour Vital Signs Date Time Temp Pulse Resp B/P (MAP) Pulse Ox O2 Delivery O2 Flow Rate FiO2 01/29/19 09:00 Room Air 01/29/19 08:21 93 148/81 01/29/19 08:00 97.8 85 20 149/73 (98) 98 01/29/19 04:00 97.7 93 20 148/81 (103) 01/29/19 00:35 98.0 75 18 130/88 (102) 01/28/19 22:17 Room Air 01/28/19 20:27 81 135/90 01/28/19 20:00 97.9 81 20 135/90 (105) 01/28/19 16:00 97.2 77 20 121/62 (81) 95 01/28/19 12:00 98.2 74 18 115/80 (92) 98 Intake and Output 01/28/19 01/29/19 19:00 07:00 Intake Total 150 ml 150 ml Output Total 250 ml 801 ml Balance -100 ml -651 ml Intake Oral 150 ml 150 ml Output Urine Total 250 ml 800 ml Stool Total 1 ml Laboratory Tests Test 01/29/19 08:30 White Blood Count 5.4 K/UL (4.8-10.8) Red Blood Count 2.82 M/UL (4.20-5.40) L Hemoglobin 8.8 G/DL (12.0-16.0) L Hematocrit 29.0 % (37.0-47.0) L Mean Corpuscular Volume 103 FL (80-99) H Mean Corpuscular Hemoglobin 31.3 PG (27.0-31.0) H Mean Corpuscular Hemoglobin Concent 30.5 G/DL (32.0-36.0) L Red Cell Distribution Width 17.5 % (11.6-14.8) H Platelet Count 159 K/UL (150-450) Mean Platelet Volume 7.1 FL (6.5-10.1) Neutrophils (%) (Auto) 73.5 % (45.0-75.0) Lymphocytes (%) (Auto) 14.8 % (20.0-45.0) L Monocytes (%) (Auto) 8.9 % (1.0-10.0) Eosinophils (%) (Auto) 1.7 % (0.0-3.0) Basophils (%) (Auto) 1.1 % (0.0-2.0) Sodium Level 145 MMOL/L (136-145) Potassium Level 3.3 MMOL/L (3.5-5.1) L Chloride Level 119 MMOL/L (98-107) H Carbon Dioxide Level 19 MMOL/L (21-32) L Anion Gap 7 mmol/L (5-15) Blood Urea Nitrogen 13 mg/dL (7-18) Creatinine 0.9 MG/DL (0.55-1.30) Estimat Glomerular Filtration Rate mL/min (>60) Glucose Level 87 MG/DL (74-106) Calcium Level 6.3 MG/DL (8.5-10.1) L Objective HEAD AND NECK: Mild JVD. LUNGS: Decreased breath sounds. CARDIOVASCULAR: Irregular S1 and S2 with no gallop. ICD in left subclavian. ABDOMEN: Soft. EXTREMITIES: No pitting edema. Gabe Hi MD Jan 29, 2019 11:42
[2019-01-29 12:00] VITALS: BP 123/72
--- NOTE | 2019-01-29 14:39 | NUR ---
RD ASSESSMENT & RECOMMENDATIONS SEE CARE ACTIVITY FOR COMPLETE ASSESSMENT DAILY ESTIMATED NEEDS: Needs based on Wound, obese 58.8kg adj 25-30 kcals/kg 0947-4725 total kcals 1.25-1.5 g protein/kg 74-88 g total protein 25-30 mL/kg 1013-1948 total fluid mLs NUTRITION DIAGNOSIS: 1) Increased kcal and protein needs r/t wound healing as evidenced by pt w/ sacral stage 2 per RN 2) Altered nutrition related lab values r/t water deficits, clinical condition, h/o DM as evidenced by pt adm w/ Na 165-> now normalized, elev BUN and creat, now both normalized, elev BGs (133 126, improved) . 3) Swallowing difficulty R/T dysphagia w/ h/o CVA, lethargy as evidenced by DRY WALL SPRAYER initially recommended NPO, NGT was inserted, but s/p self removal of NGT, pt now back on liquify pureed, NTL diet. CURRENT DIET: LOW NA/ liquify pureed, NTL + Glucerna TID PO DIET RECOMMENDATIONS: Liberalized REGULAR w/ poor PO/ texture per DRY WALL SPRAYER ADDITIONAL RECOMMENDATIONS: 1) RE-calibrate bed scale w/ added P200 mattress 2) Wound healing: Add SWAPNA BID, MVI x 1, Vit C 250g QD Rec updated WC eval 3) Monitor BGs, need for hypoglycemic agent - h/o DM 4) Continue Glucerna TID
--- NOTE | 2019-01-29 14:50 | Nephrology Progress Note ---
Assessment/Plan Problem List: (1) Acute renal failure Assessment: resolving (2) Dehydration (3) Hypernatremia (4) Anemia Assessment: worsening Assessment acute Renal Failure Cr lowering Sepsis / UTI / Pneumonia Acute metabolic Encephalopathy Hypernatremia AICD AT FIB CAD HTN presents with Low BP Anemia DNR DNI Plan DC Bowens labs reviewed k Phos IV as needed stop IV fluids watch for chf hold mind altering meds pepcid DC Motrin !!! DC planning Subjective ROS Limited/Unobtainable: No Constitutional: Reports: malaise Objective Objective Last 24 Hour Vital Signs Date Time Temp Pulse Resp B/P (MAP) Pulse Ox O2 Delivery O2 Flow Rate FiO2 01/29/19 12:00 98.2 73 18 123/72 (89) 98 01/29/19 09:00 Room Air 01/29/19 08:21 93 148/81 01/29/19 08:00 97.8 85 20 149/73 (98) 98 01/29/19 04:00 97.7 93 20 148/81 (103) 01/29/19 00:35 98.0 75 18 130/88 (102) 01/28/19 22:17 Room Air 01/28/19 20:27 81 135/90 01/28/19 20:00 97.9 81 20 135/90 (105) 01/28/19 16:00 97.2 77 20 121/62 (81) 95 Intake and Output 01/28/19 01/29/19 19:00 07:00 Intake Total 150 ml 150 ml Output Total 250 ml 801 ml Balance -100 ml -651 ml Intake Oral 150 ml 150 ml Output Urine Total 250 ml 800 ml Stool Total 1 ml Laboratory Tests 01/29/19 08:30: White Blood Count 5.4, Red Blood Count 2.82L, Hemoglobin 8.8L, Hematocrit 29.0L , Mean Corpuscular Volume 103H, Mean Corpuscular Hemoglobin 31.3H, Mean Corpuscular Hemoglobin Concent 30.5L, Red Cell Distribution Width 17.5H, Platelet Count 159, Mean Platelet Volume 7.1, Neutrophils (%) (Auto) 73.5, Lymphocytes (%) (Auto) 14.8L, Monocytes (%) (Auto) 8.9, Eosinophils (%) (Auto) 1.7, Basophils (%) (Auto) 1.1, Sodium Level 145, Potassium Level 3.3L, Chloride Level 119H, Carbon Dioxide Level 19L, Anion Gap 7, Blood Urea Nitrogen 13, Creatinine 0.9, Estimat Glomerular Filtration Rate , Glucose Level 87, Calcium Level 6.3L Height (Feet): 5 Height (Inches): 2.00 Weight (Pounds): 200 General Appearance: no apparent distress Objective no change Noe Wells MD Jan 29, 2019 14:50
[2019-01-29 16:00] VITALS: BP 132/68
[2019-01-29 16:26] LABS: APPEARANCE,URINE TURBID; BILIRUBIN, URINE 1+ (NEGATIVE); COLOR,URINE BROWN; GLUCOSE, URINE (UA) NEGATIVE (NEGATIVE); KETONES,URINE 1+ (NEGATIVE); LEUKOCYTE ESTERASE ,URINE 3+ (NEGATIVE); NITRITE,URINE POSITIVE (NEGATIVE); PH,URINE 5 (4.5-8.0); PROTEIN,URINE 3+ (NEGATIVE); UROBILINOGEN,URINE 4 MG/DL (0.0-1.0)
--- NOTE | 2019-01-29 19:24 | NUR ---
NURSE NOTES: Pt received in bed asleep, bed in lowest position ,call light within reach, will continue to monitor. No c/o pain, no signs of distress.
[2019-01-29] MEDS: Vitamin D 50,000 units cap ORAL SCH (19:51)
[2019-01-29 20:00] VITALS: BP 130/66
[2019-01-29] MEDS: Dyna-Hex 2% Top Sol 2oz TOPIC SCH (20:38)
--- NOTE | 2019-01-29 21:10 | General Progress Note ---
Assessment/Plan Assessment/Plan #Severe Sepsis -resolved #MSSA pneumonia, possibly due to aspiration -resolved #E. coli UTI s/p abx #Acute metabolic encephalopathy superimposed on severe dementia - improved -completed abx course -observe off antibiotics -aspiration precautions -pt pulled out NGT, cont liquify pureed, able to eat with / sons at bedside -discussed with and sons, does not want PEG #Hypernatremia -resolved -monitor BMP -Nephrology following #Hypomag #hypokalemia -REpleted -CTM #Chronic sCHF s/p AICD #Atrial fibrillation #HTN #CAD -HTN controlled -Continue Coreg -Cardiology eval appreciated -not on AC due to thrombocytopenia -off tele #Dispo -awaiting placement VTE PPx Heparin SC DNR/DNI I spent 45 min on this patients care, and 34 min was dedicated to counseling and /or care coordination Time of note may not represent time of encounter Subjective Date patient seen: Jan 29, 2019 Allergies: Coded Allergies: No Known Allergies (Unverified , 01/06/19) All Systems: reviewed and negative except above Subjective No acute overnight events, mental status improved, has no complaints, discussed with sons and , would like SNF near [place], discussed with cm, pending placement Objective Last 24 Hour Vital Signs Date Time Temp Pulse Resp B/P (MAP) Pulse Ox O2 Delivery O2 Flow Rate FiO2 01/29/19 20:38 70 130/66 01/29/19 16:00 97.6 75 18 132/68 (89) 98 01/29/19 12:00 98.2 73 18 123/72 (89) 98 01/29/19 09:00 Room Air 01/29/19 08:21 93 148/81 01/29/19 08:00 97.8 85 20 149/73 (98) 98 01/29/19 04:00 97.7 93 20 148/81 (103) 01/29/19 00:35 98.0 75 18 130/88 (102) 01/28/19 22:17 Room Air Intake and Output 01/28/19 01/29/19 18:59 06:59 Intake Total 150 ml 150 ml Output Total 250 ml 801 ml Balance -100 ml -651 ml Intake Oral 150 ml 150 ml Output Urine Total 250 ml 800 ml Stool Total 1 ml Laboratory Tests 01/29/19 08:30: White Blood Count 5.4, Red Blood Count 2.82L, Hemoglobin 8.8L, Hematocrit 29.0L , Mean Corpuscular Volume 103H, Mean Corpuscular Hemoglobin 31.3H, Mean Corpuscular Hemoglobin Concent 30.5L, Red Cell Distribution Width 17.5H, Platelet Count 159, Mean Platelet Volume 7.1, Neutrophils (%) (Auto) 73.5, Lymphocytes (%) (Auto) 14.8L, Monocytes (%) (Auto) 8.9, Eosinophils (%) (Auto) 1.7, Basophils (%) (Auto) 1.1, Sodium Level 145, Potassium Level 3.3L, Chloride Level 119H, Carbon Dioxide Level 19L, Anion Gap 7, Blood Urea Nitrogen 13, Creatinine 0.9, Estimat Glomerular Filtration Rate , Glucose Level 87, Calcium Level 6.3L, C-Reactive Protein, Quantitative 1.5H 01/29/19 16:15: Urine Color Brown, Urine Appearance Turbid, Urine pH 5, Urine Specific [place] 1.015, Urine Protein 3+H, Urine Glucose (UA) Negative, Urine Ketones 1+H, Urine Blood 5+H, Urine Nitrite PositiveH, Urine Bilirubin 1+H, Urine Ictotest Negative , Urine Urobilinogen 4H, Urine Leukocyte Esterase 3+H, Urine RBC 5-10H, Urine WBC TntcH, Urine Squamous Epithelial Cells Occasional, Urine Bacteria ManyH, Urine Yeast ManyH Height (Feet): 5 Height (Inches): 2.00 Weight (Pounds): 200 Objective General: alert, cooperative, no distress, appears stated age Head: normocephalic, without obvious abnormality, atraumatic Eyes: conjunctivae/corneas clear. PERRL, EOM's intact Throat: lips, mucosa, and tongue normal. MMM Neck: supple, symmetrical, trachea midline, and no JVD Lungs: clear to auscultation bilaterally Heart: regular rate and rhythm, S1, S2 normal, no murmur, click, rub or gallop Abdomen: soft, non-tender, non-distended, bowel sounds normal; no masses or organomegaly Extremities: extremities normal, atraumatic, no cyanosis or edema Pulses: 2+ and symmetric Skin: skin color, texture, turgor normal; no rashes or lesions Neurologic: grossly normal, no focal deficits Vuu,Tamanna MD Jan 29, 2019 21:10
--- NOTE | 2019-01-29 22:44 | General Progress Note ---
Assessment/Plan Assessment/Plan Assessment/Plan: # Severe Pancytopenia -- multiple etiologies could be related to underlying liver disease, medication-induced, infection versus viral syndrome, ID with abx now --> peripheral smear has been ordered and does not show significant abnormalities, however concerning Ca++ elevated --> SPEP is negative for bands --> Continue to monitor for improvement, trend cbc --> Hep panel and HIV are both negative --> US abd ordered to r/o cirrhosis and hepatosplenomegaly does not show it --> consider other causes, infections that could contribute --> reverse isolation if ANC is <2000 --> Give neupogen if ANC <1000 --> Transfuse if hgb <7, with 1 unit prbc --> plts have improved, thus was likely reactive process # Coagulation defect, unspecified (D68.9) aka coagulopathy, multifactorial usually related to poor PO intake versus medications, versus hepatitis v cirrhosis --> administer Vitamin K if patient is bleeding or FFP if the INR is >10 --> hold off on ffp unless active procedure/bleeding, first begin with vit K 10 --> mixing study as needed # Severe Sepsis woth likely hcap --> on abx as per ID team --> 01/20 is last day of abx # Acute metabolic encephalopathy superimposed on severe dementia --> on IV antibiotics to vanco and meropenem--> cefazolin --> check blood cultures, serial lactate and PCT # Hypernatremia --> on fluids as per nephro # Chronic sCHF s/p AICD --> off anticoagulation, reviewed recs of Dr. Hi --> okay to restart given potentially benefit outweighs risk --> appreciate cardiology recs # Atrial fibrillation # VINH --> currently improving The timing of this note does not necessarily reflect the time of the patient was seen. Greatly appreciate consultation! Subjective Constitutional: Denies: no symptoms, chills, diaphoresis, fever, malaise, weakness, other HEENT: Denies: no symptoms, eye pain, blurred vision, tearing, double vision, ear pain, ear discharge, nose pain, nose congestion, throat pain, throat swelling, mouth pain, mouth swelling, other Cardiovascular: Denies: no symptoms, chest pain, edema, irregular heart rate, lightheadedness, palpitations, syncope, other Respiratory: Denies: no symptoms, cough, orthopnea, shortness of breath, SOB with excertion, SOB at rest, sputum, stridor, wheezing, other Gastrointestinal/Abdominal: Denies: no symptoms, abdomen distended, abdominal pain, black stools, tarry stools, blood in stool, constipated, diarrhea, difficulty swallowing, nausea, poor appetite, poor fluid intake, rectal bleeding , vomiting, other Genitourinary: Denies: no symptoms, burning, discharge, frequency, flank pain, hematuria, incontinence, pain, urgency, other Neurologic/Psychiatric: Denies: no symptoms, anxiety, depressed, emotional problems, headache, numbness, paresthesia, pre-existing deficit, seizure, tingling, tremors, weakness, other Endocrine: Denies: no symptoms, excessive sweating, flushing, intolerance to cold, intolerance to heat, increased hunger, increased thirst, increased urine, unexplained weight gain, unexplained weight loss, other Hematologic/Lymphatic: Denies: no symptoms, anemia, easy bleeding, easy bruising, other Allergies: Coded Allergies: No Known Allergies (Unverified , 01/06/19) Subjective 01/08: pending lab workup, us of the abd pending, spep and dic panel pending 01/10: Seen by bedside, remains lethargic, no acute distress, plt remains low at 46 01/11: resting in bed, no acute distress, plt trending down 38 01/12: awake, comfortable, no acute distress noted, plt trending up 01/13: seen by bedside, awake, comfortable, no acute distress. 01/14: NG tube insertion, Pt is lethargic, plt trending up, hgb 7.7 01/15: lethargic, on 2L NC, no events, pending cbc today 01/17: plts are up trending, hgb 7.6, no events 01/18: seen by bedside, hgb 7.6, plt trending up, no events 01/20: out of the icu, completing abx today, feeling better, plt better 01/21: seen by bedside, awake, comfortable, plt trending up , hgb 7.8 01/22: Pt is awake, comfortable, no acute distress reported 01/24: awake, comfortable, no events reported, at bedside 3/11: Pt resting in bed, no distress reported, pending labs 01/26: resting in bed, comfortable, no events 01/27: awake, comfortable, no acute distress reported. 01/28: resting in bed, no events 01/29:awake, comfortable, no acute distress. Objective Last 24 Hour Vital Signs Date Time Temp Pulse Resp B/P (MAP) Pulse Ox O2 Delivery O2 Flow Rate FiO2 01/29/19 21:00 Room Air 01/29/19 20:38 70 130/66 01/29/19 20:00 97.7 70 20 130/66 (87) 97 01/29/19 16:00 97.6 75 18 132/68 (89) 98 01/29/19 12:00 98.2 73 18 123/72 (89) 98 01/29/19 09:00 Room Air 01/29/19 08:21 93 148/81 01/29/19 08:00 97.8 85 20 149/73 (98) 98 01/29/19 04:00 97.7 93 20 148/81 (103) 01/29/19 00:35 98.0 75 18 130/88 (102) Intake and Output 01/28/19 01/29/19 18:59 06:59 Intake Total 150 ml 150 ml Output Total 250 ml 801 ml Balance -100 ml -651 ml Intake Oral 150 ml 150 ml Output Urine Total 250 ml 800 ml Stool Total 1 ml Laboratory Tests 01/29/19 08:30: White Blood Count 5.4, Red Blood Count 2.82L, Hemoglobin 8.8L, Hematocrit 29.0L , Mean Corpuscular Volume 103H, Mean Corpuscular Hemoglobin 31.3H, Mean Corpuscular Hemoglobin Concent 30.5L, Red Cell Distribution Width 17.5H, Platelet Count 159, Mean Platelet Volume 7.1, Neutrophils (%) (Auto) 73.5, Lymphocytes (%) (Auto) 14.8L, Monocytes (%) (Auto) 8.9, Eosinophils (%) (Auto) 1.7, Basophils (%) (Auto) 1.1, Sodium Level 145, Potassium Level 3.3L, Chloride Level 119H, Carbon Dioxide Level 19L, Anion Gap 7, Blood Urea Nitrogen 13, Creatinine 0.9, Estimat Glomerular Filtration Rate , Glucose Level 87, Calcium Level 6.3L, C-Reactive Protein, Quantitative 1.5H 01/29/19 16:15: Urine Color Brown, Urine Appearance Turbid, Urine pH 5, Urine Specific [place] 1.015, Urine Protein 3+H, Urine Glucose (UA) Negative, Urine Ketones 1+H, Urine Blood 5+H, Urine Nitrite PositiveH, Urine Bilirubin 1+H, Urine Ictotest Negative , Urine Urobilinogen 4H, Urine Leukocyte Esterase 3+H, Urine RBC 5-10H, Urine WBC TntcH, Urine Squamous Epithelial Cells Occasional, Urine Bacteria ManyH, Urine Yeast ManyH Height (Feet): 5 Height (Inches): 2.00 Weight (Pounds): 200 Objective PE General Appearance: lethargic ++2l NC Lines, tubes and drains: peripheral HEENT: normocephalic, atraumatic. NG tube insertion Neck: normal alignment Respiratory/Chest: lungs clear, normal breath sounds Cardiovascular/Chest: normal peripheral pulses, normal rate Abdomen: non tender, soft, no organomegaly Extremities: non-tender, normal inspection : Blane Peralta MD Jan 29, 2019 22:44
[2019-01-30] VITALS: BP 123/75
[2019-01-30 04:00] VITALS: BP 147/71
[2019-01-30 05:32] LABS: BASOPHILS % (AUTO) 1.1 % (0.0-2.0); EOSINOPHILS % (AUTO) 1.6 % (0.0-3.0); HEMATOCRIT 27.8 % (37.0-47.0); HEMOGLOBIN 8.4 G/DL (12.0-16.0); MEAN CORPUSCULAR VOLUME 103 FL (80-99); MONOCYTES % (AUTO) 9.2 % (1.0-10.0); NEUTROPHILS % (AUTO) 74.1 % (45.0-75.0); PLATELET COUNT 128 K/UL (150-450); RED BLOOD COUNT 2.69 M/UL (4.20-5.40); RED CELL DISTRIBUTION WIDTH 17.5 % (11.6-14.8); WHITE BLOOD COUNT 4.7 K/UL (4.8-10.8)
[2019-01-30 05:55] LABS: ALANINE AMINOTRANSFERASE 10 U/L (12-78); ALBUMIN 2.1 G/DL (3.4-5.0); ALBUMIN/GLOBULIN RATIO 0.6 (1.0-2.7); ALKALINE PHOSPHATASE 97 U/L (46-116); ANION GAP 6 mmol/L (5-15); ASPARTATE AMINO TRANSFERASE 18 U/L (15-37); BILIRUBIN,TOTAL 0.5 MG/DL (0.2-1.0); BLOOD UREA NITROGEN 19 mg/dL (7-18); CARBON DIOXIDE 25 MMOL/L (21-32); CHLORIDE 109 MMOL/L (98-107); CREATININE 1.5 MG/DL (0.55-1.30); PHOSPHORUS 3.5 MG/DL (2.5-4.9); POTASSIUM 5.1 MMOL/L (3.5-5.1); SODIUM 140 MMOL/L (136-145)
--- NOTE | 2019-01-30 06:45 | NUR ---
NURSE NOTES: Left voicemail for Dr. Wells, pt bladder scan showed 221ml, pt not eating or drinking, had BM but hard to tell if she urinated, no urine in puriwick canister.
--- NOTE | 2019-01-30 07:30 | NUR ---
HAND-OFF: Report given to RADAMES Ro.
[2019-01-30 08:00] VITALS: BP 128/73
--- NOTE | 2019-01-30 08:59 | NUR ---
PAINT DIPPERCURATOR SI: SEPSIS VS:BP 140/80, P 70, T 96.2, RR 20, SpO2 98 WBC 4.7, RBC 2.69, Hgb 8.4, Hct 27.8, Chloride 109 IS: FLOMAX 0.4mg PEPCID 20mg K-DUR 40meq MED/SURG STATUS
[2019-01-30 12:00] VITALS: BP 135/66
--- NOTE | 2019-01-30 12:00 | NUR ---
NURSE NOTES: Placed Bowens catheter Fr 16, return of dark kia urine noted. Dr Wells made aware. Addendum: 01/30/19 at 2006 by JEFRY IBARRA RN done Bladder scan prior to Bowens placement: 247cc, made dr. Wells aware.
--- NOTE | 2019-01-30 12:49 | General Progress Note ---
Assessment/Plan Assessment/Plan #Severe Sepsis -resolved #MSSA pneumonia, possibly due to aspiration -resolved #E. coli UTI s/p abx #Acute metabolic encephalopathy superimposed on severe dementia - improved -completed abx course -observe off antibiotics -aspiration precautions -pt pulled out NGT, cont liquify pureed, able to eat with / sons at bedside -discussed with and sons, does not want PEG -Repeat UA looks positive for recurrent UTI, will d/w ID regarding need for empiric IV abx coverage, culture pending #VINH - Rise in creatinine from yesterday, s/p removal of pendleton, ?postobstructive uropathy with urinary retention - d/w Renal -Start flomax, trend creatinine #Hypernatremia -resolved -monitor BMP -Nephrology following #Hypomag #hypokalemia -REpleted -CTM #Chronic sCHF s/p AICD #Atrial fibrillation #HTN #CAD -HTN controlled -Continue Coreg -Cardiology eval appreciated -not on AC due to thrombocytopenia -off tele #Dispo -awaiting placement VTE PPx Heparin SC DNR/DNI I spent 45 min on this patients care, and 34 min was dedicated to counseling and /or care coordination Time of note may not represent time of encounter Subjective Date patient seen: Jan 30, 2019 Time patient seen: 12:47 Allergies: Coded Allergies: No Known Allergies (Unverified , 01/06/19) Subjective No acute overnight events, no new complaints. Objective Last 24 Hour Vital Signs Date Time Temp Pulse Resp B/P (MAP) Pulse Ox O2 Delivery O2 Flow Rate FiO2 01/30/19 08:36 80 128/73 01/30/19 08:00 97.0 80 20 128/73 (91) 98 01/30/19 04:00 97.8 80 20 147/71 (96) 96 01/30/19 00:00 97.6 74 20 123/75 (91) 96 01/29/19 21:00 Room Air 01/29/19 20:38 70 130/66 01/29/19 20:00 97.7 70 20 130/66 (87) 97 01/29/19 16:00 97.6 75 18 132/68 (89) 98 Intake and Output 01/29/19 01/30/19 19:00 07:00 Intake Total 360 ml 120 ml Balance 360 ml 120 ml Intake Oral 360 ml 120 ml # Bowel Movements 1 1 Laboratory Tests 01/29/19 16:15: Urine Color Brown, Urine Appearance Turbid, Urine pH 5, Urine Specific [place] 1.015, Urine Protein 3+H, Urine Glucose (UA) Negative, Urine Ketones 1+H, Urine Blood 5+H, Urine Nitrite PositiveH, Urine Bilirubin 1+H, Urine Ictotest Negative , Urine Urobilinogen 4H, Urine Leukocyte Esterase 3+H, Urine RBC 5-10H, Urine WBC TntcH, Urine Squamous Epithelial Cells Occasional, Urine Bacteria ManyH, Urine Yeast ManyH 01/30/19 04:40: White Blood Count 4.7L, Red Blood Count 2.69L, Hemoglobin 8.4L, Hematocrit 27.8L , Mean Corpuscular Volume 103H, Mean Corpuscular Hemoglobin 31.0, Mean Corpuscular Hemoglobin Concent 30.1L, Red Cell Distribution Width 17.5H, Platelet Count 128L, Mean Platelet Volume 7.4, Neutrophils (%) (Auto) 74.1, Lymphocytes (%) (Auto) 14.0L, Monocytes (%) (Auto) 9.2, Eosinophils (%) (Auto) 1.6, Basophils (%) (Auto) 1.1, Sodium Level 140, Potassium Level 5.1#, Chloride Level 109H, Carbon Dioxide Level 25, Anion Gap 6, Blood Urea Nitrogen 19H, Creatinine 1.5#H, Estimat Glomerular Filtration Rate , Glucose Level 109H, Calcium Level 9.0#, Phosphorus Level 3.5, Magnesium Level 2.3, Total Bilirubin 0.5, Aspartate Amino Transf (AST/SGOT) 18, Alanine Aminotransferase (ALT/SGPT) 10L, Alkaline Phosphatase 97, Total Protein 5.9L, Albumin 2.1L, Globulin 3.8, Albumin/Globulin Ratio 0.6L Height (Feet): 5 Height (Inches): 2.00 Weight (Pounds): 200 Objective General: alert, cooperative, no distress, appears stated age Head: normocephalic, without obvious abnormality, atraumatic Eyes: conjunctivae/corneas clear. PERRL, EOM's intact Throat: lips, mucosa, and tongue normal. MMM Neck: supple, symmetrical, trachea midline, and no JVD Lungs: clear to auscultation bilaterally Heart: regular rate and rhythm, S1, S2 normal, no murmur, click, rub or gallop Abdomen: soft, non-tender, non-distended, bowel sounds normal; no masses or organomegaly Extremities: extremities normal, atraumatic, no cyanosis or edema Pulses: 2+ and symmetric Skin: skin color, texture, turgor normal; no rashes or lesions Neurologic: grossly normal, no focal deficits Bear Herron MD Jan 30, 2019 12:49
--- NOTE | 2019-01-30 14:23 | Nephrology Progress Note ---
Assessment/Plan Problem List: (1) Acute renal failure Assessment: resolving (2) Urinary outflow obstruction (3) Dehydration (4) Hypernatremia (5) Anemia Assessment: worsening Assessment acute Renal Failure Cr lowering Sepsis / UTI / Pneumonia Acute metabolic Encephalopathy Hypernatremia AICD AT FIB CAD HTN presents with Low BP Anemia DNR DNI Plan DC Pendleton, failed as patient started to retain- pendleton back in- has UTI start Flomax k & Phos as needed watch for chf hold mind altering meds pepcid DC Motrin !!! Subjective ROS Limited/Unobtainable: No Constitutional: Reports: malaise Objective Objective Last 24 Hour Vital Signs Date Time Temp Pulse Resp B/P (MAP) Pulse Ox O2 Delivery O2 Flow Rate FiO2 01/30/19 09:00 Room Air 01/30/19 08:36 80 128/73 01/30/19 08:00 97.0 80 20 128/73 (91) 98 01/30/19 04:00 97.8 80 20 147/71 (96) 96 01/30/19 00:00 97.6 74 20 123/75 (91) 96 01/29/19 21:00 Room Air 01/29/19 20:38 70 130/66 01/29/19 20:00 97.7 70 20 130/66 (87) 97 01/29/19 16:00 97.6 75 18 132/68 (89) 98 Intake and Output 01/29/19 01/30/19 19:00 07:00 Intake Total 360 ml 120 ml Balance 360 ml 120 ml Intake Oral 360 ml 120 ml # Bowel Movements 1 1 Laboratory Tests 01/29/19 16:15: Urine Color Brown, Urine Appearance Turbid, Urine pH 5, Urine Specific [place] 1.015, Urine Protein 3+H, Urine Glucose (UA) Negative, Urine Ketones 1+H, Urine Blood 5+H, Urine Nitrite PositiveH, Urine Bilirubin 1+H, Urine Ictotest Negative , Urine Urobilinogen 4H, Urine Leukocyte Esterase 3+H, Urine RBC 5-10H, Urine WBC TntcH, Urine Squamous Epithelial Cells Occasional, Urine Bacteria ManyH, Urine Yeast ManyH 01/30/19 04:40: White Blood Count 4.7L, Red Blood Count 2.69L, Hemoglobin 8.4L, Hematocrit 27.8L , Mean Corpuscular Volume 103H, Mean Corpuscular Hemoglobin 31.0, Mean Corpuscular Hemoglobin Concent 30.1L, Red Cell Distribution Width 17.5H, Platelet Count 128L, Mean Platelet Volume 7.4, Neutrophils (%) (Auto) 74.1, Lymphocytes (%) (Auto) 14.0L, Monocytes (%) (Auto) 9.2, Eosinophils (%) (Auto) 1.6, Basophils (%) (Auto) 1.1, Sodium Level 140, Potassium Level 5.1#, Chloride Level 109H, Carbon Dioxide Level 25, Anion Gap 6, Blood Urea Nitrogen 19H, Creatinine 1.5#H, Estimat Glomerular Filtration Rate , Glucose Level 109H, Calcium Level 9.0#, Phosphorus Level 3.5, Magnesium Level 2.3, Total Bilirubin 0.5, Aspartate Amino Transf (AST/SGOT) 18, Alanine Aminotransferase (ALT/SGPT) 10L, Alkaline Phosphatase 97, Total Protein 5.9L, Albumin 2.1L, Globulin 3.8, Albumin/Globulin Ratio 0.6L Height (Feet): 5 Height (Inches): 2.00 Weight (Pounds): 200 General Appearance: no apparent distress Respiratory/Chest: lungs clear Abdomen: soft Objective no change Noe Wells MD Jan 30, 2019 14:23
[2019-01-30] MEDS: Piperacillin/Tazobactam 3.375 GM in D5W 110 ML IVPB SCH ×2 (15:07→23:01)
[2019-01-30] MEDS ORDERED: NS 275ml ONE (15:57)
[2019-01-30 16:00] VITALS: BP 140/80
--- NOTE | 2019-01-30 16:33 | Cardiac Electrophysiology PN ---
Assessment/Plan Assessment/Plan 1. Atrial fibrillation. On Coreg and off anticoagulation for thrombocytopenia 2. Status post [employer] biventricular ICD. Nl Fx. No shocks 3. Congestive heart failure. BNP > 7200. EF 35%. On Coreg 4. Severe hypernatremia and renal failure. On IV fluids per Dr. Wells. 5. History of hypertension. On Coreg 6. MRSA PNA on Abx 7. Altered mental status. 8. Thrombocytopenia. 9. Hx of CVA with dysphasia DW RN and family Subjective Subjective Alert in NAD. No CP or SOB. Family at bedside Objective Last 24 Hour Vital Signs Date Time Temp Pulse Resp B/P (MAP) Pulse Ox O2 Delivery O2 Flow Rate FiO2 01/30/19 12:00 96.2 70 20 135/66 (89) 97 01/30/19 09:00 Room Air 01/30/19 08:36 80 128/73 01/30/19 08:00 97.0 80 20 128/73 (91) 98 01/30/19 04:00 97.8 80 20 147/71 (96) 96 01/30/19 00:00 97.6 74 20 123/75 (91) 96 01/29/19 21:00 Room Air 01/29/19 20:38 70 130/66 01/29/19 20:00 97.7 70 20 130/66 (87) 97 Intake and Output 01/29/19 01/30/19 19:00 07:00 Intake Total 360 ml 120 ml Balance 360 ml 120 ml Intake Oral 360 ml 120 ml # Bowel Movements 1 1 Laboratory Tests Test 01/30/19 04:40 White Blood Count 4.7 K/UL (4.8-10.8) L Red Blood Count 2.69 M/UL (4.20-5.40) L Hemoglobin 8.4 G/DL (12.0-16.0) L Hematocrit 27.8 % (37.0-47.0) L Mean Corpuscular Volume 103 FL (80-99) H Mean Corpuscular Hemoglobin 31.0 PG (27.0-31.0) Mean Corpuscular Hemoglobin Concent 30.1 G/DL (32.0-36.0) L Red Cell Distribution Width 17.5 % (11.6-14.8) H Platelet Count 128 K/UL (150-450) L Mean Platelet Volume 7.4 FL (6.5-10.1) Neutrophils (%) (Auto) 74.1 % (45.0-75.0) Lymphocytes (%) (Auto) 14.0 % (20.0-45.0) L Monocytes (%) (Auto) 9.2 % (1.0-10.0) Eosinophils (%) (Auto) 1.6 % (0.0-3.0) Basophils (%) (Auto) 1.1 % (0.0-2.0) Sodium Level 140 MMOL/L (136-145) Potassium Level 5.1 MMOL/L (3.5-5.1) # Chloride Level 109 MMOL/L (98-107) H Carbon Dioxide Level 25 MMOL/L (21-32) Anion Gap 6 mmol/L (5-15) Blood Urea Nitrogen 19 mg/dL (7-18) H Creatinine 1.5 MG/DL (0.55-1.30) #H Estimat Glomerular Filtration Rate mL/min (>60) Glucose Level 109 MG/DL (74-106) H Calcium Level 9.0 MG/DL (8.5-10.1) # Phosphorus Level 3.5 MG/DL (2.5-4.9) Magnesium Level 2.3 MG/DL (1.8-2.4) Total Bilirubin 0.5 MG/DL (0.2-1.0) Aspartate Amino Transf (AST/SGOT) 18 U/L (15-37) Alanine Aminotransferase (ALT/SGPT) 10 U/L (12-78) L Alkaline Phosphatase 97 U/L (46-116) Total Protein 5.9 G/DL (6.4-8.2) L Albumin 2.1 G/DL (3.4-5.0) L Globulin 3.8 g/dL Albumin/Globulin Ratio 0.6 (1.0-2.7) L Microbiology Date/Time Source Procedure Growth Status 01/29/19 16:15 Urine,Clean Catch Urine Culture - Preliminary Gram Negative Marcel Resulted Objective HEAD AND NECK: Mild JVD. LUNGS: Decreased breath sounds. CARDIOVASCULAR: Irregular S1 and S2 with no gallop. ICD in left subclavian. ABDOMEN: Soft. EXTREMITIES: No pitting edema. Gabe Hi MD Jan 30, 2019 16:33
--- NOTE | 2019-01-30 19:15 | NUR ---
HAND-OFF: Report given to RADAMES Saul.
[2019-01-30 20:00] VITALS: BP 134/84
[2019-01-30] MEDS: Dyna-Hex 2% Top Sol 2oz TOPIC SCH (20:46)
[2019-01-30] MEDS: Tamsulosin 0.4mg cap ORAL SCH (20:49)
[2019-01-31] VITALS: BP 118/83
[2019-01-31 04:00] VITALS: BP 122/80
[2019-01-31] MEDS: Piperacillin/Tazobactam 3.375 GM in D5W 110 ML IVPB SCH (06:04)
[2019-01-31 06:46] LABS: BASOPHILS % (AUTO) 1.1 % (0.0-2.0); EOSINOPHILS % (AUTO) 2.4 % (0.0-3.0); HEMATOCRIT 31.7 % (37.0-47.0); HEMOGLOBIN 9.5 G/DL (12.0-16.0); LYMPHOCYTES % (AUTO) 16.6 % (20.0-45.0); MEAN CORPUSCULAR VOLUME 104 FL (80-99); MONOCYTES % (AUTO) 8.7 % (1.0-10.0); NEUTROPHILS % (AUTO) 71.1 % (45.0-75.0); PLATELET COUNT 130 K/UL (150-450); RED BLOOD COUNT 3.06 M/UL (4.20-5.40); RED CELL DISTRIBUTION WIDTH 17.6 % (11.6-14.8); WHITE BLOOD COUNT 4.8 K/UL (4.8-10.8)
[2019-01-31 07:03] LABS: ANION GAP 9 mmol/L (5-15); BLOOD UREA NITROGEN 21 mg/dL (7-18); CALCIUM 9.1 MG/DL (8.5-10.1); CARBON DIOXIDE 22 MMOL/L (21-32); CHLORIDE 108 MMOL/L (98-107); CREATININE 1.6 MG/DL (0.55-1.30); POTASSIUM 5.3 MMOL/L (3.5-5.1); SODIUM 139 MMOL/L (136-145)
--- NOTE | 2019-01-31 07:14 | NUR ---
HAND-OFF: Report given to RADAMES Ro. endorsed pt PIcC line unable to draw blood from this morning.
[2019-01-31 07:36] LABS: ALANINE AMINOTRANSFERASE 9 U/L (12-78); ALBUMIN 2.2 G/DL (3.4-5.0); ALKALINE PHOSPHATASE 104 U/L (46-116); ASPARTATE AMINO TRANSFERASE 41 U/L (15-37); BILIRUBIN,DIRECT < 0.1 MG/DL (0.0-0.3); BILIRUBIN,TOTAL 0.7 MG/DL (0.2-1.0); PHOSPHORUS 3.7 MG/DL (2.5-4.9)
[2019-01-31 08:00] VITALS: BP 152/74
--- NOTE | 2019-01-31 09:05 | NUR ---
SI: SEPSIS VS:BP 152/74, P 72, T 96.9, RR 20, SpO2 98 RBC 3.06, Hgb 9.5, Hct 31.7, K 5.3, Chloride 108 IS: FLOMAX 0.4mg PEPCID 20mg K-DUR 40meq COREG 12.5mg CEFEPIME HCI 50ml IVPB MED/SURG STATUS
[2019-01-31] MEDS: Tamsulosin 0.4mg cap ORAL SCH ×2 (09:09→20:19)
--- NOTE | 2019-01-31 11:48 | General Progress Note ---
Assessment/Plan Assessment/Plan #Severe Sepsis -resolved #MSSA pneumonia, possibly due to aspiration -resolved #E. coli UTI s/p abx #Acute metabolic encephalopathy superimposed on severe dementia - improved -completed abx course -observe off antibiotics -aspiration precautions -pt pulled out NGT, cont liquify pureed, able to eat with / sons at bedside -discussed with and sons, does not want PEG -Repeat UA looks positive for recurrent UTI, will d/w ID regarding need for empiric IV abx coverage, culture pending #VINH - Rise in creatinine from yesterday, s/p removal of pendleton, ?postobstructive uropathy with urinary retention - d/w Renal -Cont flomax, trend creatinine (1.6 today from 1.5 yesterday) #Hypernatremia -resolved -monitor BMP -Nephrology following #Hypomag #hypokalemia -REpleted -CTM #Chronic sCHF s/p AICD #Atrial fibrillation #HTN #CAD -HTN controlled -Continue Coreg -Cardiology eval appreciated -not on AC due to thrombocytopenia -off tele #Dispo -awaiting placement VTE PPx Heparin SC DNR/DNI I spent 45 min on this patients care, and 34 min was dedicated to counseling and /or care coordination Time of note may not represent time of encounter Subjective Date patient seen: Jan 31, 2019 Time patient seen: 11:47 ROS Limited/Unobtainable: No Allergies: Coded Allergies: No Known Allergies (Unverified , 01/06/19) Subjective No acute overnight events, no new complaints. Objective Last 24 Hour Vital Signs Date Time Temp Pulse Resp B/P (MAP) Pulse Ox O2 Delivery O2 Flow Rate FiO2 01/31/19 09:09 100 152/74 01/31/19 09:00 Room Air 01/31/19 08:00 97.8 100 20 152/74 (100) 98 01/31/19 04:00 98.2 78 20 122/80 (94) 94 01/31/19 00:00 96.9 76 18 118/83 (95) 96 01/30/19 21:00 Room Air 01/30/19 20:49 72 134/84 01/30/19 20:00 97.9 72 18 134/84 (101) 96 01/30/19 16:00 98.1 75 19 140/80 (100) 97 01/30/19 12:00 96.2 70 20 135/66 (89) 97 Intake and Output 01/30/19 01/31/19 19:00 07:00 Intake Total 110.0 ml Output Total 200 ml Balance -90.0 ml IV Total 110.0 ml Output Urine Total 200 ml # Bowel Movements 1 2 Laboratory Tests 01/31/19 05:30: White Blood Count 4.8, Red Blood Count 3.06L, Hemoglobin 9.5L, Hematocrit 31.7L , Mean Corpuscular Volume 104H, Mean Corpuscular Hemoglobin 31.2H, Mean Corpuscular Hemoglobin Concent 30.0L, Red Cell Distribution Width 17.6H, Platelet Count 130L, Mean Platelet Volume 7.1, Neutrophils (%) (Auto) 71.1, Lymphocytes (%) (Auto) 16.6L, Monocytes (%) (Auto) 8.7, Eosinophils (%) (Auto) 2.4, Basophils (%) (Auto) 1.1, Sodium Level 139, Potassium Level 5.3H, Chloride Level 108H, Carbon Dioxide Level 22, Anion Gap 9, Blood Urea Nitrogen 21H, Creatinine 1.6H, Estimat Glomerular Filtration Rate , Glucose Level 106, Uric Acid 6.8, Calcium Level 9.1, Phosphorus Level 3.7, Total Bilirubin 0.7, Direct Bilirubin < 0.1, Aspartate Amino Transf (AST/SGOT) 41H, Alanine Aminotransferase (ALT/SGPT) 9L, Alkaline Phosphatase 104, Pro-B-Type Natriuretic Peptide 43138A, Total Protein 6.3L, Albumin 2.2L Height (Feet): 5 Height (Inches): 2.00 Weight (Pounds): 200 Objective General: alert, cooperative, no distress, appears stated age Head: normocephalic, without obvious abnormality, atraumatic Eyes: conjunctivae/corneas clear. PERRL, EOM's intact Throat: lips, mucosa, and tongue normal. MMM Neck: supple, symmetrical, trachea midline, and no JVD Lungs: clear to auscultation bilaterally Heart: regular rate and rhythm, S1, S2 normal, no murmur, click, rub or gallop Abdomen: soft, non-tender, non-distended, bowel sounds normal; no masses or organomegaly Extremities: extremities normal, atraumatic, no cyanosis or edema Pulses: 2+ and symmetric Skin: skin color, texture, turgor normal; no rashes or lesions Neurologic: grossly normal, no focal deficits Bear Herron MD Jan 31, 2019 11:48
[2019-01-31 12:00] VITALS: BP 143/78
--- NOTE | 2019-01-31 12:00 | NUR ---
NURSE NOTES: no urine on Bowens catheter bag noted, done bladder scan = 0cc. Notified dr. Wells.
--- NOTE | 2019-01-31 13:08 | Infectious Diseases Prog Note ---
Assessment/Plan Assessment/Plan Asked to re-evaluate patient for uti. ASSESSMENT AND PLAN: 1. pseudomonas uti, hx e.coli uti, hx staph aureus pna/MSSA, hx sepsis - zosyn started yesterday - will narrow coverage to cefepime, day # 2 abx - f/u on labs, monitor chest x-ray as indicated - communicated with Dr. Herron - d/w Dr. Wells about patient medical management 2. The patient has severe hypernatremia. 3. Dehydration. 4. Acute kidney injury. 5. Elevated creatinine. 6. Intravenous fluids. 7. Hypothermia. 8. Pancytopenia. Workup per Hematology/Oncology. 9. Hypertension. 10. Coronary artery disease. 11. Congestive heart failure. 12. Automatic implanted cardioverter. 13. Subdural hematoma. 14. Severe dementia. 15. Aspiration risk. 16. No known drug allergies. 17. Social history is negative. 18. Family history is noncontributory. 19. MAR was noted. 20. Case was discussed with RN. 21. Encephalopathy. 22. Skin care protocol. 23. The patient is DNR/DNI. 24. aspiration precautions 25. mrsa colonization 26. wound care per protocol - sacral wound noted and not acutely infected Subjective Constitutional: Denies: fever HEENT: Denies: congestion Respiratory: Denies: shortness of breath Cardiovascular: Denies: chest pain Gastrointestinal/Abdominal: Denies: nausea, vomiting, diarrhea, constipation Genitourinary: Reports: other - + pendleton Neurologic: Denies: headache Psychiatric: Denies: depression Skin: Denies: rash Hematologic: Denies: bleeding Musculoskeletal: Denies: pain Allergies: Coded Allergies: No Known Allergies (Unverified , 01/06/19) Objective Vital Signs Last 24 Hour Vital Signs Date Time Temp Pulse Resp B/P (MAP) Pulse Ox O2 Delivery O2 Flow Rate FiO2 01/31/19 09:09 100 152/74 01/31/19 09:00 Room Air 01/31/19 08:00 97.8 100 20 152/74 (100) 98 01/31/19 04:00 98.2 78 20 122/80 (94) 94 01/31/19 00:00 96.9 76 18 118/83 (95) 96 01/30/19 21:00 Room Air 3/16/19 20:49 72 134/84 01/30/19 20:00 97.9 72 18 134/84 (101) 96 01/30/19 16:00 98.1 75 19 140/80 (100) 97 Height (Feet): 5 Height (Inches): 2.00 Weight (Pounds): 200 General Appearance: no acute distress HEENT: normocephalic, atraumatic, anicteric, mucous membranes moist Respiratory/Chest: lungs clear, normal breath sounds, no respiratory distress, no accessory muscle use Cardiovascular: normal rate, regular rhythm, no gallop/murmur, no JVD Abdomen: normal bowel sounds, soft, non tender, no organomegaly, non distended Genitourinary: other - + pendleton - urine cloudy Extremities: no cyanosis Skin: no rash Neurologic/Psychiatric: jig hand II-XII grossly normal, alert, responsive Lymphatic: no neck adenopathy Musculoskeletal: no effusion Objective 01/06 - chest x-ray - Comparison: none Findings: There is a left chest pacemaker, with an orphaned lead as well as epicardial leads. Surgical clips are seen in the left axilla. The heart is borderline enlarged. The lungs demonstrate possible hazy infiltrate in left perihilar region Impression: Possible left perihilar infiltrate Borderline cardiomegaly Other findings as noted 01/12 - chest x-ray - Comparison: 01/10/2019 Findings: The heart is enlarged. There is patchy parenchymal opacity in the left suprahilar region which is not evident previously. There is equivocal minimal interstitial congestive change. The lungs and pleural spaces are otherwise grossly clear, although a pacemaker obscures much of the left lung. Surgical clips are seen in the left chest wall Impression: New or increased patchy left suprahilar opacity Equivocal minimal interstitial congestion Chest x-ray - 01/14/19 - Findings: Again demonstrated is a left chest AICD with epicardial leads. Surgical clips are seen in the left axilla. The heart is enlarged. The lungs and pleural spaces are clear. There is a right arm PICC Impression: No acute process Cardiomegaly Other findings as noted Chest x-ray - 01/21/19 Findings: Left chest AICD, right arm PICC again demonstrated. Interim development of small left pleural effusion. There may be some hazy infiltrate developing in the left perihilar region, although this is largely obscured by the pacemaker. The heart is enlarged.. Impression: New small left pleural effusion Possible left perihilar hazy infiltrate, also new 01/23/19 - FINDINGS: Lungs: Mild vascular congestion. No consolidation. Pleural space: Tiny bilateral pleural effusions. No pneumothorax. Heart: Cardiomegaly. Mediastinum: Unremarkable. Bones/joints: Unremarkable. Soft tissues: Left axillary surgical clips. Tubes, lines and devices: Cardiac pacemaker. Stable right PICC line. IMPRESSION: Mild vascular and interstitial congestion with tiny bilateral pleural effusions. Slightly worsening CHF. Microbiology Date/Time Source Procedure Growth Status 01/29/19 16:15 Urine,Clean Catch Urine Culture - Final Pseudomonas Aeruginosa Complete Laboratory Tests Test 01/31/19 05:30 White Blood Count 4.8 K/UL (4.8-10.8) Red Blood Count 3.06 M/UL (4.20-5.40) L Hemoglobin 9.5 G/DL (12.0-16.0) L Hematocrit 31.7 % (37.0-47.0) L Mean Corpuscular Volume 104 FL (80-99) H Mean Corpuscular Hemoglobin 31.2 PG (27.0-31.0) H Mean Corpuscular Hemoglobin Concent 30.0 G/DL (32.0-36.0) L Red Cell Distribution Width 17.6 % (11.6-14.8) H Platelet Count 130 K/UL (150-450) L Mean Platelet Volume 7.1 FL (6.5-10.1) Neutrophils (%) (Auto) 71.1 % (45.0-75.0) Lymphocytes (%) (Auto) 16.6 % (20.0-45.0) L Monocytes (%) (Auto) 8.7 % (1.0-10.0) Eosinophils (%) (Auto) 2.4 % (0.0-3.0) Basophils (%) (Auto) 1.1 % (0.0-2.0) Sodium Level 139 MMOL/L (136-145) Potassium Level 5.3 MMOL/L (3.5-5.1) H Chloride Level 108 MMOL/L (98-107) H Carbon Dioxide Level 22 MMOL/L (21-32) Anion Gap 9 mmol/L (5-15) Blood Urea Nitrogen 21 mg/dL (7-18) H Creatinine 1.6 MG/DL (0.55-1.30) H Estimat Glomerular Filtration Rate mL/min (>60) Glucose Level 106 MG/DL (74-106) Uric Acid 6.8 MG/DL (2.6-7.2) Calcium Level 9.1 MG/DL (8.5-10.1) Phosphorus Level 3.7 MG/DL (2.5-4.9) Total Bilirubin 0.7 MG/DL (0.2-1.0) Direct Bilirubin < 0.1 MG/DL (0.0-0.3) Aspartate Amino Transf (AST/SGOT) 41 U/L (15-37) H Alanine Aminotransferase (ALT/SGPT) 9 U/L (12-78) L Alkaline Phosphatase 104 U/L (46-116) Pro-B-Type Natriuretic Peptide 53614 pg/mL (0-125) H Total Protein 6.3 G/DL (6.4-8.2) L Albumin 2.2 G/DL (3.4-5.0) L Current Medications Medications (Trade) Dose Ordered Sig/Nuria Route PRN Reason Start Time Stop Time Status Last Admin Dose Admin Carvedilol (Coreg) 6.25 mg EVERY 12 HOURS ORAL 01/29/19 21:00 02/12/19 20:59 01/31/19 09:09 Chlorhexidine Gluconate (Kaylee-Hex 2%) 1 applic DAILY@2000 TOPIC 01/13/19 20:00 02/12/19 19:59 01/30/19 20:46 Dextrose (Dextrose 50%) 25 ml Q30M PRN IV Hypoglycemia 01/13/19 04:00 02/05/19 18:59 Dextrose (Dextrose 50%) 50 ml Q30M PRN IV Hypoglycemia 01/13/19 04:00 02/05/19 18:59 Ergocalciferol (Drisdol) 50,000 intlu QWEEK ORAL 01/29/19 16:00 02/28/19 15:59 01/29/19 19:51 Famotidine (Pepcid) 20 mg BID ORAL 01/23/19 18:00 02/22/19 17:59 01/31/19 09:09 Piperacillin Sod/ Tazobactam Sod 3.375 gm/Dextrose 110 ml @ 27.5 mls/hr Q8HR IVPB 01/30/19 14:00 02/06/19 13:59 01/31/19 06:04 Tamsulosin HCl (Flomax) 0.4 mg Q12HR ORAL 01/30/19 21:00 03/01/19 20:59 01/31/19 09:09 Ninfa Vences MD Jan 31, 2019 13:08
[2019-01-31 16:00] VITALS: BP 117/76
[2019-01-31] MEDS ORDERED: Tubing IV Secondary IV ONE (17:13)
--- NOTE | 2019-01-31 17:25 | Nephrology Progress Note ---
Assessment/Plan Problem List: (1) Acute renal failure Assessment: resolving (2) Urinary outflow obstruction (3) Dehydration (4) Hypernatremia (5) Anemia Assessment: worsening Assessment acute Renal Failure Cr lowering Sepsis / UTI / Pneumonia Acute metabolic Encephalopathy Hypernatremia AICD AT FIB CAD HTN presents with Low BP Anemia DNR DNI Plan DC Pendleton, FAILED as patient started to retain- pendleton back in- FLUID CHALLENGE has UTI start Flomax k & Phos as needed watch for chf hold mind altering meds pepcid DC Motrin !!! Subjective ROS Limited/Unobtainable: No Constitutional: Reports: malaise Objective Objective Last 24 Hour Vital Signs Date Time Temp Pulse Resp B/P (MAP) Pulse Ox O2 Delivery O2 Flow Rate FiO2 01/31/19 09:09 100 152/74 01/31/19 09:00 Room Air 01/31/19 08:00 97.8 100 20 152/74 (100) 98 01/31/19 04:00 98.2 78 20 122/80 (94) 94 01/31/19 00:00 96.9 76 18 118/83 (95) 96 01/30/19 21:00 Room Air 01/30/19 20:49 72 134/84 01/30/19 20:00 97.9 72 18 134/84 (101) 96 Intake and Output 01/30/19 01/31/19 19:00 07:00 Intake Total 110.0 ml Output Total 150 ml 200 ml Balance -150 ml -90.0 ml IV Total 110.0 ml Output Urine Total 150 ml 200 ml # Bowel Movements 1 2 Laboratory Tests 01/31/19 05:30: White Blood Count 4.8, Red Blood Count 3.06L, Hemoglobin 9.5L, Hematocrit 31.7L , Mean Corpuscular Volume 104H, Mean Corpuscular Hemoglobin 31.2H, Mean Corpuscular Hemoglobin Concent 30.0L, Red Cell Distribution Width 17.6H, Platelet Count 130L, Mean Platelet Volume 7.1, Neutrophils (%) (Auto) 71.1, Lymphocytes (%) (Auto) 16.6L, Monocytes (%) (Auto) 8.7, Eosinophils (%) (Auto) 2.4, Basophils (%) (Auto) 1.1, Sodium Level 139, Potassium Level 5.3H, Chloride Level 108H, Carbon Dioxide Level 22, Anion Gap 9, Blood Urea Nitrogen 21H, Creatinine 1.6H, Estimat Glomerular Filtration Rate , Glucose Level 106, Uric Acid 6.8, Calcium Level 9.1, Phosphorus Level 3.7, Total Bilirubin 0.7, Direct Bilirubin < 0.1, Aspartate Amino Transf (AST/SGOT) 41H, Alanine Aminotransferase (ALT/SGPT) 9L, Alkaline Phosphatase 104, Pro-B-Type Natriuretic Peptide 63129D, Total Protein 6.3L, Albumin 2.2L Height (Feet): 5 Height (Inches): 2.00 Weight (Pounds): 200 Objective no change Noe Wells MD Jan 31, 2019 17:25
[2019-01-31] MEDS ORDERED: Albumin Human 5% 250ml IV SCH (18:00)
--- NOTE | 2019-01-31 19:40 | NUR ---
NURSE NOTES: Started NS 500cc bolus, will endorse Albumin 5% 500cc infusion to scorer single.
[2019-01-31 19:50] VITALS: BP 145/58
--- NOTE | 2019-01-31 19:57 | NUR ---
HAND-OFF: Report given to RADAMES Knott.
--- NOTE | 2019-01-31 19:58 | NUR ---
NURSE NOTES: Received patient comfortably resting in bed,no complaints,kept clean and dry.
[2019-01-31] MEDS: Dyna-Hex 2% Top Sol 2oz TOPIC SCH (20:18)
[2019-01-31] MEDS: Carvedilol 12.5mg tab ORAL SCH (20:19)
--- NOTE | 2019-01-31 22:28 | General Progress Note ---
Assessment/Plan Assessment/Plan Assessment/Plan: # Severe Pancytopenia -- multiple etiologies could be related to underlying liver disease, medication-induced, infection versus viral syndrome, ID with abx now --> peripheral smear has been ordered and does not show significant abnormalities, however concerning Ca++ elevated --> SPEP is negative for bands --> Continue to monitor for improvement, trend cbc --> Hep panel and HIV are both negative --> US abd ordered to r/o cirrhosis and hepatosplenomegaly does not show it --> consider other causes, infections that could contribute --> reverse isolation if ANC is <2000 --> Give neupogen if ANC <1000 --> Transfuse if hgb <7, with 1 unit prbc --> plts have improved, thus was likely reactive process # Coagulation defect, unspecified (D68.9) aka coagulopathy, multifactorial usually related to poor PO intake versus medications, versus hepatitis v cirrhosis --> administer Vitamin K if patient is bleeding or FFP if the INR is >10 --> hold off on ffp unless active procedure/bleeding, first begin with vit K 10 --> mixing study as needed # Severe Sepsis woth likely hcap --> on abx as per ID team --> 01/20 is last day of abx # Acute metabolic encephalopathy superimposed on severe dementia --> on IV antibiotics to vanco and meropenem--> cefazolin --> check blood cultures, serial lactate and PCT # Hypernatremia --> on fluids as per nephro # Chronic sCHF s/p AICD --> off anticoagulation, reviewed recs of Dr. Hi --> okay to restart given potentially benefit outweighs risk --> appreciate cardiology recs # Atrial fibrillation # VINH --> currently improving The timing of this note does not necessarily reflect the time of the patient was seen. Greatly appreciate consultation! Subjective Allergies: Coded Allergies: No Known Allergies (Unverified , 01/06/19) Subjective 01/08: pending lab workup, us of the abd pending, spep and dic panel pending 01/10: Seen by bedside, remains lethargic, no acute distress, plt remains low at 46 01/11: resting in bed, no acute distress, plt trending down 38 01/12: awake, comfortable, no acute distress noted, plt trending up 01/13: seen by bedside, awake, comfortable, no acute distress. 01/14: NG tube insertion, Pt is lethargic, plt trending up, hgb 7.7 01/15: lethargic, on 2L NC, no events, pending cbc today 01/17: plts are up trending, hgb 7.6, no events 01/18: seen by bedside, hgb 7.6, plt trending up, no events 01/20: out of the icu, completing abx today, feeling better, plt better 01/21: seen by bedside, awake, comfortable, plt trending up , hgb 7.8 01/22: Pt is awake, comfortable, no acute distress reported 01/24: awake, comfortable, no events reported, at bedside 01/25: Pt resting in bed, no distress reported, pending labs 3: resting in bed, comfortable, no events 01/27: awake, comfortable, no acute distress reported. 01/28: resting in bed, no events 01/29:awake, comfortable, no acute distress. 01/31: seen by bedside, no events Objective Last 24 Hour Vital Signs Date Time Temp Pulse Resp B/P (MAP) Pulse Ox O2 Delivery O2 Flow Rate FiO2 01/31/19 21:27 Room Air 01/31/19 20:19 73 145/58 01/31/19 19:50 98.2 73 20 145/58 (87) 98 01/31/19 16:00 98.4 79 17 117/76 (90) 96 01/31/19 12:00 98.0 82 20 143/78 (99) 95 01/31/19 09:09 100 152/74 01/31/19 09:00 Room Air 01/31/19 08:00 97.8 100 20 152/74 (100) 98 01/31/19 04:00 98.2 78 20 122/80 (94) 94 01/31/19 00:00 96.9 76 18 118/83 (95) 96 Intake and Output 01/30/19 01/31/19 19:00 07:00 Intake Total 110.0 ml Output Total 150 ml 200 ml Balance -150 ml -90.0 ml IV Total 110.0 ml Output Urine Total 150 ml 200 ml # Bowel Movements 1 2 Laboratory Tests 01/31/19 05:30: White Blood Count 4.8, Red Blood Count 3.06L, Hemoglobin 9.5L, Hematocrit 31.7L , Mean Corpuscular Volume 104H, Mean Corpuscular Hemoglobin 31.2H, Mean Corpuscular Hemoglobin Concent 30.0L, Red Cell Distribution Width 17.6H, Platelet Count 130L, Mean Platelet Volume 7.1, Neutrophils (%) (Auto) 71.1, Lymphocytes (%) (Auto) 16.6L, Monocytes (%) (Auto) 8.7, Eosinophils (%) (Auto) 2.4, Basophils (%) (Auto) 1.1, Sodium Level 139, Potassium Level 5.3H, Chloride Level 108H, Carbon Dioxide Level 22, Anion Gap 9, Blood Urea Nitrogen 21H, Creatinine 1.6H, Estimat Glomerular Filtration Rate , Glucose Level 106, Uric Acid 6.8, Calcium Level 9.1, Phosphorus Level 3.7, Total Bilirubin 0.7, Direct Bilirubin < 0.1, Aspartate Amino Transf (AST/SGOT) 41H, Alanine Aminotransferase (ALT/SGPT) 9L, Alkaline Phosphatase 104, C-Reactive Protein, Quantitative 3.0H, Pro-B-Type Natriuretic Peptide 21576N, Total Protein 6.3L, Albumin 2.2L Height (Feet): 5 Height (Inches): 2.00 Weight (Pounds): 200 Objective PE General Appearance: lethargic ++2l NC Lines, tubes and drains: peripheral HEENT: normocephalic, atraumatic. NG tube insertion Neck: normal alignment Respiratory/Chest: lungs clear, normal breath sounds Cardiovascular/Chest: normal peripheral pulses, normal rate Abdomen: non tender, soft, no organomegaly Extremities: non-tender, normal inspection : Blane Peralta MD Jan 31, 2019 22:28
[2019-02-01] VITALS: BP 142/75
[2019-02-01 04:00] VITALS: BP 136/87
[2019-02-01 06:36] LABS: BASOPHILS % (AUTO) 1.4 % (0.0-2.0); EOSINOPHILS % (AUTO) 1.6 % (0.0-3.0); HEMATOCRIT 28.9 % (37.0-47.0); HEMOGLOBIN 8.9 G/DL (12.0-16.0); LYMPHOCYTES % (AUTO) 14.4 % (20.0-45.0); MEAN CORPUSCULAR VOLUME 104 FL (80-99); MONOCYTES % (AUTO) 8.4 % (1.0-10.0); NEUTROPHILS % (AUTO) 74.2 % (45.0-75.0); PLATELET COUNT 104 K/UL (150-450); RED BLOOD COUNT 2.78 M/UL (4.20-5.40); WHITE BLOOD COUNT 5.5 K/UL (4.8-10.8)
[2019-02-01 07:04] LABS: PHOSPHORUS 3.7 MG/DL (2.5-4.9)
[2019-02-01 07:15] LABS: ALANINE AMINOTRANSFERASE 7 U/L (12-78); ALBUMIN 2.7 G/DL (3.4-5.0); ALBUMIN/GLOBULIN RATIO 0.7 (1.0-2.7); ALKALINE PHOSPHATASE 95 U/L (46-116); ANION GAP 13 mmol/L (5-15); ASPARTATE AMINO TRANSFERASE 19 U/L (15-37); BILIRUBIN,TOTAL 0.8 MG/DL (0.2-1.0); BLOOD UREA NITROGEN 21 mg/dL (7-18); CARBON DIOXIDE 20 MMOL/L (21-32); CHLORIDE 108 MMOL/L (98-107); CREATININE 1.7 MG/DL (0.55-1.30); POTASSIUM 4.6 MMOL/L (3.5-5.1); SODIUM 141 MMOL/L (136-145)
--- NOTE | 2019-02-01 07:27 | NUR ---
HAND-OFF: Report given to Jia Najera RN.
[2019-02-01 08:00] VITALS: BP 130/60
[2019-02-01] MEDS: Tamsulosin 0.4mg cap ORAL SCH ×2 (08:17→21:16)
[2019-02-01] MEDS: Carvedilol 12.5mg tab ORAL SCH ×2 (08:18→21:16)
--- NOTE | 2019-02-01 09:09 | NUR ---
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
[2019-02-01] MEDS ORDERED: Albumin Human 5% 250ml IV ONE ×2 (10:30→11:30)
--- NOTE | 2019-02-01 11:00 | NUR ---
NURSE NOTES: wound care nurse assessed and evaluated right thigh, LFA and sacral wounds, and changed dressings with help of RN.
[2019-02-01 12:00] VITALS: BP 137/69
--- NOTE | 2019-02-01 12:07 | Infectious Diseases Prog Note ---
Assessment/Plan Assessment/Plan Asked to re-evaluate patient for uti. ASSESSMENT AND PLAN: 1. pseudomonas uti, hx e.coli uti, hx staph aureus pna/MSSA, hx sepsis - cefepime - day # 3 abx, plan to treat for 7 days - f/u on labs, monitor chest x-ray as indicated - communicated with Dr. Herron - d/w Dr. Ontiveros 2. The patient has severe hypernatremia. 3. Dehydration. 4. Acute kidney injury. 5. Elevated creatinine. 6. Intravenous fluids. 7. Hypothermia. 8. Pancytopenia. Workup per Hematology/Oncology. 9. Hypertension. 10. Coronary artery disease. 11. Congestive heart failure. 12. Automatic implanted cardioverter. 13. Subdural hematoma. 14. Severe dementia. 15. Aspiration risk. 16. No known drug allergies. 17. Social history is negative. 18. Family history is noncontributory. 19. MAR was noted. 20. Case was discussed with RN. 21. Encephalopathy. 22. Skin care protocol. 23. The patient is DNR/DNI. 24. aspiration precautions 25. mrsa colonization 26. wound care per protocol - sacral wound noted and not acutely infected Subjective Constitutional: Denies: fever HEENT: Denies: congestion Respiratory: Denies: shortness of breath Cardiovascular: Denies: chest pain Gastrointestinal/Abdominal: Denies: nausea, vomiting, diarrhea Genitourinary: Reports: other - + pendleton Allergies: Coded Allergies: No Known Allergies (Unverified , 01/06/19) Objective Vital Signs Last 24 Hour Vital Signs Date Time Temp Pulse Resp B/P (MAP) Pulse Ox O2 Delivery O2 Flow Rate FiO2 02/01/19 09:00 Room Air 02/01/19 08:18 83 136/87 02/01/19 08:00 97.2 79 22 130/60 (83) 95 02/01/19 04:00 97.9 83 20 136/87 (103) 98 02/01/19 00:00 97.9 74 18 142/75 (97) 95 01/31/19 21:27 Room Air 01/31/19 20:19 73 145/58 01/31/19 19:50 98.2 73 20 145/58 (87) 98 01/31/19 16:00 98.4 79 17 117/76 (90) 96 Height (Feet): 5 Height (Inches): 2.00 Weight (Pounds): 200 General Appearance: no acute distress HEENT: normocephalic, atraumatic, anicteric Respiratory/Chest: lungs clear, normal breath sounds, no respiratory distress, no accessory muscle use Cardiovascular: normal rate, regular rhythm, no gallop/murmur Abdomen: normal bowel sounds, soft, non tender, no organomegaly Genitourinary: other - + pendleton - urine cloudy Objective 01/06 - chest x-ray - Comparison: none Findings: There is a left chest pacemaker, with an orphaned lead as well as epicardial leads. Surgical clips are seen in the left axilla. The heart is borderline enlarged. The lungs demonstrate possible hazy infiltrate in left perihilar region Impression: Possible left perihilar infiltrate Borderline cardiomegaly Other findings as noted 01/12 - chest x-ray - Comparison: 01/10/2019 Findings: The heart is enlarged. There is patchy parenchymal opacity in the left suprahilar region which is not evident previously. There is equivocal minimal interstitial congestive change. The lungs and pleural spaces are otherwise grossly clear, although a pacemaker obscures much of the left lung. Surgical clips are seen in the left chest wall Impression: New or increased patchy left suprahilar opacity Equivocal minimal interstitial congestion Chest x-ray - 01/14/19 - Findings: Again demonstrated is a left chest AICD with epicardial leads. Surgical clips are seen in the left axilla. The heart is enlarged. The lungs and pleural spaces are clear. There is a right arm PICC Impression: No acute process Cardiomegaly Other findings as noted Chest x-ray - 01/21/19 Findings: Left chest AICD, right arm PICC again demonstrated. Interim development of small left pleural effusion. There may be some hazy infiltrate developing in the left perihilar region, although this is largely obscured by the pacemaker. The heart is enlarged.. Impression: New small left pleural effusion Possible left perihilar hazy infiltrate, also new 01/23/19 - FINDINGS: Lungs: Mild vascular congestion. No consolidation. Pleural space: Tiny bilateral pleural effusions. No pneumothorax. Heart: Cardiomegaly. Mediastinum: Unremarkable. Bones/joints: Unremarkable. Soft tissues: Left axillary surgical clips. Tubes, lines and devices: Cardiac pacemaker. Stable right PICC line. IMPRESSION: Mild vascular and interstitial congestion with tiny bilateral pleural effusions. Slightly worsening CHF. Microbiology Date/Time Source Procedure Growth Status 01/29/19 16:15 Urine,Clean Catch Urine Culture - Final Pseudomonas Aeruginosa Complete Laboratory Tests Test 02/01/19 05:15 White Blood Count 5.5 K/UL (4.8-10.8) Red Blood Count 2.78 M/UL (4.20-5.40) L Hemoglobin 8.9 G/DL (12.0-16.0) L Hematocrit 28.9 % (37.0-47.0) L Mean Corpuscular Volume 104 FL (80-99) H Mean Corpuscular Hemoglobin 32.0 PG (27.0-31.0) H Mean Corpuscular Hemoglobin Concent 30.8 G/DL (32.0-36.0) L Red Cell Distribution Width 17.0 % (11.6-14.8) H Platelet Count 104 K/UL (150-450) L Mean Platelet Volume 7.4 FL (6.5-10.1) Neutrophils (%) (Auto) 74.2 % (45.0-75.0) Lymphocytes (%) (Auto) 14.4 % (20.0-45.0) L Monocytes (%) (Auto) 8.4 % (1.0-10.0) Eosinophils (%) (Auto) 1.6 % (0.0-3.0) Basophils (%) (Auto) 1.4 % (0.0-2.0) Sodium Level 141 MMOL/L (136-145) Potassium Level 4.6 MMOL/L (3.5-5.1) Chloride Level 108 MMOL/L (98-107) H Carbon Dioxide Level 20 MMOL/L (21-32) L Anion Gap 13 mmol/L (5-15) Blood Urea Nitrogen 21 mg/dL (7-18) H Creatinine 1.7 MG/DL (0.55-1.30) H Estimat Glomerular Filtration Rate mL/min (>60) Glucose Level 118 MG/DL (74-106) H Uric Acid 6.4 MG/DL (2.6-7.2) Calcium Level 9.0 MG/DL (8.5-10.1) Phosphorus Level 3.7 MG/DL (2.5-4.9) Magnesium Level 2.1 MG/DL (1.8-2.4) Total Bilirubin 0.8 MG/DL (0.2-1.0) Aspartate Amino Transf (AST/SGOT) 19 U/L (15-37) Alanine Aminotransferase (ALT/SGPT) 7 U/L (12-78) L Alkaline Phosphatase 95 U/L (46-116) Pro-B-Type Natriuretic Peptide 74754 pg/mL (0-125) H Total Protein 6.4 G/DL (6.4-8.2) Albumin 2.7 G/DL (3.4-5.0) L Globulin 3.7 g/dL Albumin/Globulin Ratio 0.7 (1.0-2.7) L Current Medications Medications (Trade) Dose Ordered Sig/Nuria Route PRN Reason Start Time Stop Time Status Last Admin Dose Admin Carvedilol (Coreg) 12.5 mg EVERY 12 HOURS ORAL 01/31/19 21:00 02/12/19 20:59 02/01/19 08:18 Cefepime HCl 1 gm/ Dextrose 50 ml @ 100 mls/hr Q24H IVPB 01/31/19 17:00 02/07/19 16:59 01/31/19 17:05 Chlorhexidine Gluconate (Kaylee-Hex 2%) 1 applic DAILY@2000 TOPIC 01/13/19 20:00 02/12/19 19:59 01/31/19 20:18 Dextrose (Dextrose 50%) 25 ml Q30M PRN IV Hypoglycemia 01/13/19 04:00 02/05/19 18:59 Dextrose (Dextrose 50%) 50 ml Q30M PRN IV Hypoglycemia 01/13/19 04:00 02/05/19 18:59 Ergocalciferol (Drisdol) 50,000 intlu QWEEK ORAL 01/29/19 16:00 02/28/19 15:59 01/29/19 19:51 Famotidine (Pepcid) 20 mg BID ORAL 01/23/19 18:00 02/22/19 17:59 02/01/19 08:17 Tamsulosin HCl (Flomax) 0.4 mg Q12HR ORAL 01/30/19 21:00 03/01/19 20:59 02/01/19 08:17 Alkasspooles,Salam MD Feb 01, 2019 12:07
--- NOTE | 2019-02-01 13:36 | Cardiac Electrophysiology PN ---
Assessment/Plan Assessment/Plan 1. Atrial fibrillation. On Coreg . Off anticoagulation for thrombocytopenia 2. Status post [employer] biventricular ICD. Nl Fx. No shocks 3. Congestive heart failure. BNP > 7200. EF 35%. On Coreg 4. Severe hypernatremia and renal failure. On IV fluids per Dr. Wells. 5. History of hypertension. On Coreg 6. MRSA PNA on Abx 7. Altered mental status. 8. Thrombocytopenia. 9. Hx of CVA with dysphasia DW RN Subjective Subjective Alert in NAD. No CP or SOB. Objective Last 24 Hour Vital Signs Date Time Temp Pulse Resp B/P (MAP) Pulse Ox O2 Delivery O2 Flow Rate FiO2 02/01/19 09:00 Room Air 02/01/19 08:18 83 136/87 02/01/19 08:00 97.2 79 22 130/60 (83) 95 02/01/19 04:00 97.9 83 20 136/87 (103) 98 02/01/19 00:00 97.9 74 18 142/75 (97) 95 01/31/19 21:27 Room Air 01/31/19 20:19 73 145/58 01/31/19 19:50 98.2 73 20 145/58 (87) 98 01/31/19 16:00 98.4 79 17 117/76 (90) 96 Intake and Output 01/31/19 02/01/19 19:00 07:00 Intake Total 360 ml Output Total 200 ml Balance 160 ml Intake Oral 360 ml Output Urine Total 200 ml # Bowel Movements 2 Laboratory Tests Test 02/01/19 05:15 White Blood Count 5.5 K/UL (4.8-10.8) Red Blood Count 2.78 M/UL (4.20-5.40) L Hemoglobin 8.9 G/DL (12.0-16.0) L Hematocrit 28.9 % (37.0-47.0) L Mean Corpuscular Volume 104 FL (80-99) H Mean Corpuscular Hemoglobin 32.0 PG (27.0-31.0) H Mean Corpuscular Hemoglobin Concent 30.8 G/DL (32.0-36.0) L Red Cell Distribution Width 17.0 % (11.6-14.8) H Platelet Count 104 K/UL (150-450) L Mean Platelet Volume 7.4 FL (6.5-10.1) Neutrophils (%) (Auto) 74.2 % (45.0-75.0) Lymphocytes (%) (Auto) 14.4 % (20.0-45.0) L Monocytes (%) (Auto) 8.4 % (1.0-10.0) Eosinophils (%) (Auto) 1.6 % (0.0-3.0) Basophils (%) (Auto) 1.4 % (0.0-2.0) Sodium Level 141 MMOL/L (136-145) Potassium Level 4.6 MMOL/L (3.5-5.1) Chloride Level 108 MMOL/L (98-107) H Carbon Dioxide Level 20 MMOL/L (21-32) L Anion Gap 13 mmol/L (5-15) Blood Urea Nitrogen 21 mg/dL (7-18) H Creatinine 1.7 MG/DL (0.55-1.30) H Estimat Glomerular Filtration Rate mL/min (>60) Glucose Level 118 MG/DL (74-106) H Uric Acid 6.4 MG/DL (2.6-7.2) Calcium Level 9.0 MG/DL (8.5-10.1) Phosphorus Level 3.7 MG/DL (2.5-4.9) Magnesium Level 2.1 MG/DL (1.8-2.4) Total Bilirubin 0.8 MG/DL (0.2-1.0) Aspartate Amino Transf (AST/SGOT) 19 U/L (15-37) Alanine Aminotransferase (ALT/SGPT) 7 U/L (12-78) L Alkaline Phosphatase 95 U/L (46-116) Pro-B-Type Natriuretic Peptide 53843 pg/mL (0-125) H Total Protein 6.4 G/DL (6.4-8.2) Albumin 2.7 G/DL (3.4-5.0) L Globulin 3.7 g/dL Albumin/Globulin Ratio 0.7 (1.0-2.7) L Microbiology Date/Time Source Procedure Growth Status 01/29/19 16:15 Urine,Clean Catch Urine Culture - Final Pseudomonas Aeruginosa Complete Objective HEAD AND NECK: Mild JVD. LUNGS: Decreased breath sounds. CARDIOVASCULAR: Irregular S1 and S2 with no gallop. ICD in left subclavian. ABDOMEN: Soft. EXTREMITIES: No pitting edema. Gabe Hi MD Feb 01, 2019 13:36
--- NOTE | 2019-02-01 14:17 | NUR ---
NURSE NOTES: WOUND CARE NOTES: Pt noted to have Cat.2 skin tear L forearm. Rolled skin flap replaced over base of wound covering 95% of wound with 5% epidermal loss. Base of wound moist -viable. Periwound without erythema or elevation in skin temp. Cleansed with Saline. Silvasorb gel applied and covered with Optifoam drsg. Incontinence associated dermatitis groin, medial/posterior upper thighs resolving-less erythema noted .Resolving blister upper medial R thigh .Base of wound is pink and moist(L)1cm x(W)1.4cm. Edges of wound adherent and flat. Periwound without erythema or elevation in skin temp. Sacrum is clean and intact. Both heels are soft but blanchable. No evidence of new skin breakdown noted. Pt requires extensive asst with bed mobility and observed properly positioned with pillows. Both heels are off-loaded with pillow. Pt has an APM/EMA mattress overlay on bed. Recommendations:Cleanse Skin Tear L forearm .Apply Silvasorb gel .Cover with Optifoam drsg .Change every 7 days and PRN. Cleanse Blister Medial R thigh with Saline. Apply Silvasorb gel .Ciover with Optifoam drsg. Change every 7 days and PRN. Apply Triad paste to Perineum, medial posterior aspects of both upper thighs,and buttocks with each perineal care. Apply Cavilon Skin Barrier to both heels. Cover each heel with Optifoam drsgs. Change every 7 days and prn. Reposition at least every 2hours or as tolerated. Off-load heels with pillow.
--- NOTE | 2019-02-01 15:44 | NUR ---
RD ASSESSMENT & RECOMMENDATIONS SEE CARE ACTIVITY FOR COMPLETE ASSESSMENT DAILY ESTIMATED NEEDS: Needs based on Wound, obese 58.8kg adj 25-30 kcals/kg 7410-1675 total kcals 1.25-1.5 g protein/kg 74-88 g total protein 25-30 mL/kg 2219-9737 total fluid mLs NUTRITION DIAGNOSIS: 1) Increased kcal and protein needs r/t wound healing as evidenced by pt w/ sacral stage 2 per RN 2) Altered nutrition related lab values r/t water deficits, clinical condition, h/o DM as evidenced by pt adm w/ Na 165-> now normalized, elev BUN and creat, were both normalized, now trending back up, elev BGs (133 126, improved). 3) Swallowing difficulty R/T dysphagia w/ h/o CVA, lethargy as evidenced by LATHE PULLER initially recommended NPO, NGT was inserted, but s/p self removal of NGT, pt now back on liquify pureed, NTL diet w/ poor and variable PO intake. . CURRENT DIET:LOW NA/ liquify pureed, NTL + Glucerna TID PO DIET RECOMMENDATIONS: Liberalized REGULAR w/ poor PO/ texture per LATHE PULLER ADDITIONAL RECOMMENDATIONS: 1) RE-calibrate bed scale w/ added P200 mattress 2) Wound healing: Add SWAPNA BID, MVI x 1, Vit C 250g QD Rec updated WC eval 3) Monitor BGs, need for hypoglycemic agent - h/o DM, BGs now improved 4) Continue Glucerna TID 5) Monitor renal fxn- BUN and creat slowly trend up
[2019-02-01 15:53] VITALS: BP 123/50
--- NOTE | 2019-02-01 15:57 | Nephrology Progress Note ---
Assessment/Plan Problem List: (1) Acute renal failure Assessment: cr up 1.7 (2) Urinary outflow obstruction (3) Dehydration (4) Hypernatremia (5) Anemia Assessment: worsening Assessment acute Renal Failure Cr 1.7 Sepsis / UTI / Pneumonia Acute metabolic Encephalopathy Hypernatremia AICD AT FIB CAD HTN presents with Low BP Anemia DNR DNI Plan DC Pendleton, FAILED as patient started to retain- pendleton back in- FLUID CHALLENGE has UTI start Flomax k & Phos as needed watch for chf hold mind altering meds pepcid DC Motrin !!! Subjective ROS Limited/Unobtainable: No Constitutional: Reports: malaise, weakness Objective Objective Last 24 Hour Vital Signs Date Time Temp Pulse Resp B/P (MAP) Pulse Ox O2 Delivery O2 Flow Rate FiO2 02/01/19 15:53 96.8 67 22 123/50 (74) 96 02/01/19 12:00 97.7 80 22 137/69 (91) 97 02/01/19 09:00 Room Air 02/01/19 08:18 83 136/87 02/01/19 08:00 97.2 79 22 130/60 (83) 95 02/01/19 04:00 97.9 83 20 136/87 (103) 98 02/01/19 00:00 97.9 74 18 142/75 (97) 95 01/31/19 21:27 Room Air 01/31/19 20:19 73 145/58 01/31/19 19:50 98.2 73 20 145/58 (87) 98 01/31/19 16:00 98.4 79 17 117/76 (90) 96 Intake and Output 01/31/19 02/01/19 19:00 07:00 Intake Total 360 ml Output Total 200 ml Balance 160 ml Intake Oral 360 ml Output Urine Total 200 ml # Bowel Movements 2 Laboratory Tests 02/01/19 05:15: White Blood Count 5.5, Red Blood Count 2.78L, Hemoglobin 8.9L, Hematocrit 28.9L , Mean Corpuscular Volume 104H, Mean Corpuscular Hemoglobin 32.0H, Mean Corpuscular Hemoglobin Concent 30.8L, Red Cell Distribution Width 17.0H, Platelet Count 104L, Mean Platelet Volume 7.4, Neutrophils (%) (Auto) 74.2, Lymphocytes (%) (Auto) 14.4L, Monocytes (%) (Auto) 8.4, Eosinophils (%) (Auto) 1.6, Basophils (%) (Auto) 1.4, Sodium Level 141, Potassium Level 4.6, Chloride Level 108H, Carbon Dioxide Level 20L, Anion Gap 13, Blood Urea Nitrogen 21H, Creatinine 1.7H, Estimat Glomerular Filtration Rate , Glucose Level 118H, Uric Acid 6.4, Calcium Level 9.0, Phosphorus Level 3.7, Magnesium Level 2.1, Total Bilirubin 0.8, Aspartate Amino Transf (AST/SGOT) 19, Alanine Aminotransferase ( ALT/SGPT) 7L, Alkaline Phosphatase 95, Pro-B-Type Natriuretic Peptide 04800X, Total Protein 6.4, Albumin 2.7L, Globulin 3.7, Albumin/Globulin Ratio 0.7L Height (Feet): 5 Height (Inches): 2.00 Weight (Pounds): 200 General Appearance: no apparent distress Genitourinary/Rectal: other - pendleton + Objective no change Noe Wells MD Feb 01, 2019 15:57
--- NOTE | 2019-02-01 16:58 | NUR ---
*-* INSURANCE *-* UPDATED REVIEWS HAVE BEEN FAXED TO: [place]: ROCAEL F:[phone] P:[phone]
--- NOTE | 2019-02-01 18:09 | General Progress Note ---
Assessment/Plan Assessment/Plan Assessment/Plan: # Severe Pancytopenia -- multiple etiologies could be related to underlying liver disease, medication-induced, infection versus viral syndrome, ID with abx now --> peripheral smear has been ordered and does not show significant abnormalities, however concerning Ca++ elevated --> SPEP is negative for bands --> Continue to monitor for improvement, trend cbc --> Hep panel and HIV are both negative --> US abd ordered to r/o cirrhosis and hepatosplenomegaly does not show it --> consider other causes, infections that could contribute --> reverse isolation if ANC is <2000 --> Give neupogen if ANC <1000 --> Transfuse if hgb <7, with 1 unit prbc --> plts have improved, thus was likely reactive process --> igA and issue transglutaminase igA ordered # Coagulation defect, unspecified (D68.9) aka coagulopathy, multifactorial usually related to poor PO intake versus medications, versus hepatitis v cirrhosis --> administer Vitamin K if patient is bleeding or FFP if the INR is >10 --> hold off on ffp unless active procedure/bleeding, first begin with vit K 10 --> mixing study as needed # Severe Sepsis woth likely hcap --> on abx as per ID team --> 01/20 is last day of abx --> currently restarted on abx as per id # Acute metabolic encephalopathy superimposed on severe dementia --> check blood cultures, serial lactate and PCT --> appreciate id recs # Hypernatremia --> on fluids as per nephro # Chronic sCHF s/p AICD --> off anticoagulation, reviewed recs of Dr. Hi --> okay to restart given potentially benefit outweighs risk --> appreciate cardiology recs # Atrial fibrillation # VINH --> currently improving The timing of this note does not necessarily reflect the time of the patient was seen. Greatly appreciate consultation! Subjective Constitutional: Denies: no symptoms, chills, diaphoresis, fever, malaise, weakness, other HEENT: Denies: no symptoms, eye pain, blurred vision, tearing, double vision, ear pain, ear discharge, nose pain, nose congestion, throat pain, throat swelling, mouth pain, mouth swelling, other Cardiovascular: Denies: no symptoms, chest pain, edema, irregular heart rate, lightheadedness, palpitations, syncope, other Respiratory: Denies: no symptoms, cough, orthopnea, shortness of breath, SOB with excertion, SOB at rest, sputum, stridor, wheezing, other Gastrointestinal/Abdominal: Denies: no symptoms, abdomen distended, abdominal pain, black stools, tarry stools, blood in stool, constipated, diarrhea, difficulty swallowing, nausea, poor appetite, poor fluid intake, rectal bleeding , vomiting, other Genitourinary: Denies: no symptoms, burning, discharge, frequency, flank pain, hematuria, incontinence, pain, urgency, other Neurologic/Psychiatric: Denies: no symptoms, anxiety, depressed, emotional problems, headache, numbness, paresthesia, pre-existing deficit, seizure, tingling, tremors, weakness, other Endocrine: Denies: no symptoms, excessive sweating, flushing, intolerance to cold, intolerance to heat, increased hunger, increased thirst, increased urine, unexplained weight gain, unexplained weight loss, other Allergies: Coded Allergies: No Known Allergies (Unverified , 01/06/19) Subjective 01/08: pending lab workup, us of the abd pending, spep and dic panel pending 01/10: Seen by bedside, remains lethargic, no acute distress, plt remains low at 46 01/11: resting in bed, no acute distress, plt trending down 38 01/12: awake, comfortable, no acute distress noted, plt trending up 01/13: seen by bedside, awake, comfortable, no acute distress. 01/14: NG tube insertion, Pt is lethargic, plt trending up, hgb 7.7 01/15: lethargic, on 2L NC, no events, pending cbc today 01/17: plts are up trending, hgb 7.6, no events 01/18: seen by bedside, hgb 7.6, plt trending up, no events 01/20: out of the icu, completing abx today, feeling better, plt better 01/21: seen by bedside, awake, comfortable, plt trending up , hgb 7.8 01/22: Pt is awake, comfortable, no acute distress reported 01/24: awake, comfortable, no events reported, at bedside 01/25: Pt resting in bed, no distress reported, pending labs 01/26: resting in bed, comfortable, no events 01/27: awake, comfortable, no acute distress reported. 01/28: resting in bed, no events 01/29:awake, comfortable, no acute distress. 01/31: seen by bedside, no events 02/01: no events noted, no fevers or chills, cbc better Objective Last 24 Hour Vital Signs Date Time Temp Pulse Resp B/P (MAP) Pulse Ox O2 Delivery O2 Flow Rate FiO2 02/01/19 15:53 96.8 67 22 123/50 (74) 96 02/01/19 12:00 97.7 80 22 137/69 (91) 97 02/01/19 09:00 Room Air 02/01/19 08:18 83 136/87 02/01/19 08:00 97.2 79 22 130/60 (83) 95 02/01/19 04:00 97.9 83 20 136/87 (103) 98 02/01/19 00:00 97.9 74 18 142/75 (97) 95 01/31/19 21:27 Room Air 01/31/19 20:19 73 145/58 01/31/19 19:50 98.2 73 20 145/58 (87) 98 Intake and Output 01/31/19 02/01/19 19:00 07:00 Intake Total 360 ml Output Total 200 ml Balance 160 ml Intake Oral 360 ml Output Urine Total 200 ml # Bowel Movements 2 Laboratory Tests 02/01/19 05:15: White Blood Count 5.5, Red Blood Count 2.78L, Hemoglobin 8.9L, Hematocrit 28.9L , Mean Corpuscular Volume 104H, Mean Corpuscular Hemoglobin 32.0H, Mean Corpuscular Hemoglobin Concent 30.8L, Red Cell Distribution Width 17.0H, Platelet Count 104L, Mean Platelet Volume 7.4, Neutrophils (%) (Auto) 74.2, Lymphocytes (%) (Auto) 14.4L, Monocytes (%) (Auto) 8.4, Eosinophils (%) (Auto) 1.6, Basophils (%) (Auto) 1.4, Sodium Level 141, Potassium Level 4.6, Chloride Level 108H, Carbon Dioxide Level 20L, Anion Gap 13, Blood Urea Nitrogen 21H, Creatinine 1.7H, Estimat Glomerular Filtration Rate , Glucose Level 118H, Uric Acid 6.4, Calcium Level 9.0, Phosphorus Level 3.7, Magnesium Level 2.1, Total Bilirubin 0.8, Aspartate Amino Transf (AST/SGOT) 19, Alanine Aminotransferase ( ALT/SGPT) 7L, Alkaline Phosphatase 95, C-Reactive Protein, Quantitative 2.5H, Pro-B-Type Natriuretic Peptide 60409P, Total Protein 6.4, Albumin 2.7L, Globulin 3.7, Albumin/Globulin Ratio 0.7L Height (Feet): 5 Height (Inches): 2.00 Weight (Pounds): 200 Objective PE General Appearance: lethargic ++2l NC Lines, tubes and drains: peripheral HEENT: normocephalic, atraumatic. NG tube insertion Neck: normal alignment Respiratory/Chest: lungs clear, normal breath sounds Cardiovascular/Chest: normal peripheral pulses, normal rate Abdomen: non tender, soft, no organomegaly Extremities: non-tender, normal inspection : Blane Peralta MD Feb 01, 2019 18:09
--- NOTE | 2019-02-01 19:27 | NUR ---
HAND-OFF: Report given to RADAMES Knott.
--- NOTE | 2019-02-01 19:43 | NUR ---
NURSE NOTES: Received patient comfortably resting in bed,no complaints.Kept clean and dry.
[2019-02-01 20:00] VITALS: BP 144/105
[2019-02-01] MEDS: Dyna-Hex 2% Top Sol 2oz TOPIC SCH (21:16)
--- NOTE | 2019-02-01 22:52 | General Progress Note ---
Assessment/Plan Assessment/Plan #Severe Sepsis -resolved #MSSA pneumonia, possibly due to aspiration -resolved #E. coli UTI s/p abx #Acute metabolic encephalopathy superimposed on severe dementia - improved #pseudomonas uti -cont cefepime x 7 days -aspiration precautions -pt pulled out NGT, cont liquify pureed, able to eat with / sons at bedside -discussed with and sons, does not want PEG #Hypernatremia -resolved -monitor BMP -Nephrology following #Hypomag #hypokalemia -REpleted -CTM #Chronic sCHF s/p AICD #Atrial fibrillation #HTN #CAD -HTN controlled -Continue Coreg -Cardiology eval appreciated -not on AC due to thrombocytopenia -off tele #Dispo -awaiting placement VTE PPx Heparin SC DNR/DNI I spent 45 min on this patients care, and 34 min was dedicated to counseling and /or care coordination Time of note may not represent time of encounter Subjective Date patient seen: Feb 01, 2019 Allergies: Coded Allergies: No Known Allergies (Unverified , 01/06/19) Subjective No acute overnight events, mental status improved, has no complaints, discussed with sons and , would like SNF near [place], discussed with cm, pending placement Objective Last 24 Hour Vital Signs Date Time Temp Pulse Resp B/P (MAP) Pulse Ox O2 Delivery O2 Flow Rate FiO2 02/01/19 21:16 66 144/105 02/01/19 20:15 Room Air 02/01/19 20:00 98.0 66 18 144/105 (118) 92 02/01/19 15:53 96.8 67 22 123/50 (74) 96 02/01/19 12:00 97.7 80 22 137/69 (91) 97 02/01/19 09:00 Room Air 02/01/19 08:18 83 136/87 02/01/19 08:00 97.2 79 22 130/60 (83) 95 02/01/19 04:00 97.9 83 20 136/87 (103) 98 02/01/19 00:00 97.9 74 18 142/75 (97) 95 Intake and Output 01/31/19 02/01/19 19:00 07:00 Intake Total 410 ml Output Total 200 ml Balance 210 ml Intake Oral 360 ml IV Total 50 ml Output Urine Total 200 ml # Bowel Movements 2 Laboratory Tests 02/01/19 05:15: White Blood Count 5.5, Red Blood Count 2.78L, Hemoglobin 8.9L, Hematocrit 28.9L , Mean Corpuscular Volume 104H, Mean Corpuscular Hemoglobin 32.0H, Mean Corpuscular Hemoglobin Concent 30.8L, Red Cell Distribution Width 17.0H, Platelet Count 104L, Mean Platelet Volume 7.4, Neutrophils (%) (Auto) 74.2, Lymphocytes (%) (Auto) 14.4L, Monocytes (%) (Auto) 8.4, Eosinophils (%) (Auto) 1.6, Basophils (%) (Auto) 1.4, Sodium Level 141, Potassium Level 4.6, Chloride Level 108H, Carbon Dioxide Level 20L, Anion Gap 13, Blood Urea Nitrogen 21H, Creatinine 1.7H, Estimat Glomerular Filtration Rate , Glucose Level 118H, Uric Acid 6.4, Calcium Level 9.0, Phosphorus Level 3.7, Magnesium Level 2.1, Total Bilirubin 0.8, Aspartate Amino Transf (AST/SGOT) 19, Alanine Aminotransferase ( ALT/SGPT) 7L, Alkaline Phosphatase 95, C-Reactive Protein, Quantitative 2.5H, Pro-B-Type Natriuretic Peptide 03179T, Total Protein 6.4, Albumin 2.7L, Globulin 3.7, Albumin/Globulin Ratio 0.7L, Immunoglobulin A [Pending], Tissue Transglutaminase IgA Ab [Pending] Height (Feet): 5 Height (Inches): 2.00 Weight (Pounds): 200 Objective General: alert, cooperative, no distress, appears stated age Head: normocephalic, without obvious abnormality, atraumatic Eyes: conjunctivae/corneas clear. PERRL, EOM's intact Throat: lips, mucosa, and tongue normal. MMM Neck: supple, symmetrical, trachea midline, and no JVD Lungs: clear to auscultation bilaterally Heart: regular rate and rhythm, S1, S2 normal, no murmur, click, rub or gallop Abdomen: soft, non-tender, non-distended, bowel sounds normal; no masses or organomegaly Extremities: extremities normal, atraumatic, no cyanosis or edema Pulses: 2+ and symmetric Skin: skin color, texture, turgor normal; no rashes or lesions Neurologic: grossly normal, no focal deficits Vuu,Tamanna MD Feb 01, 2019 22:52
[2019-02-02 00:05] VITALS: BP 140/96
[2019-02-02 04:00] VITALS: BP 123/66
[2019-02-02 06:40] LABS: HEMATOCRIT 29.8 % (37.0-47.0); HEMOGLOBIN 9.2 G/DL (12.0-16.0); MEAN CORPUSCULAR VOLUME 104 FL (80-99); PLATELET COUNT 91 K/UL (150-450); RED BLOOD COUNT 2.86 M/UL (4.20-5.40); WHITE BLOOD COUNT 5.6 K/UL (4.8-10.8)
[2019-02-02 07:20] LABS: ALANINE AMINOTRANSFERASE 9 U/L (12-78); ALBUMIN 2.7 G/DL (3.4-5.0); ALBUMIN/GLOBULIN RATIO 0.8 (1.0-2.7); ALKALINE PHOSPHATASE 90 U/L (46-116); ANION GAP 10 mmol/L (5-15); ASPARTATE AMINO TRANSFERASE 17 U/L (15-37); BILIRUBIN,TOTAL 0.7 MG/DL (0.2-1.0); BLOOD UREA NITROGEN 21 mg/dL (7-18); CARBON DIOXIDE 21 MMOL/L (21-32); CHLORIDE 107 MMOL/L (98-107); CREATININE 1.8 MG/DL (0.55-1.30); PHOSPHORUS 3.8 MG/DL (2.5-4.9); POTASSIUM 4.5 MMOL/L (3.5-5.1); SODIUM 138 MMOL/L (136-145)
--- NOTE | 2019-02-02 07:22 | NUR ---
HAND-OFF: Report given to RADAMES Redmond.
[2019-02-02 08:00] VITALS: BP 130/76
--- NOTE | 2019-02-02 08:00 | NUR ---
NURSE NOTES: RECEIVED PATIENT IN BED, RESTING AND ALERT TO SHAKING. NO SIGNS OF RESPIRATORY DISTRESS. PICC INTACT. FLACC SCORE 0. HOB 30 DEGREES. BED IN LOWEST POSITION, CALL LIGHT WITHIN REACH. WILL CONTINUE TO MONITOR.
--- NOTE | 2019-02-02 09:14 | NUR ---
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
[2019-02-02] MEDS: Carvedilol 12.5mg tab ORAL SCH ×2 (10:38→21:04)
[2019-02-02] MEDS: Tamsulosin 0.4mg cap ORAL SCH ×2 (10:38→21:04)
[2019-02-02 12:00] VITALS: BP 117/68
--- NOTE | 2019-02-02 14:57 | NUR ---
*-* INSURANCE *-* UPDATED REVIEWS HAVE BEEN FAXED TO: [facility]: ROCAEL F:[phone] P:[phone]
--- NOTE | 2019-02-02 15:48 | Infectious Diseases Prog Note ---
Assessment/Plan Assessment/Plan ASSESSMENT AND PLAN: 1. pseudomonas uti, hx e.coli uti, hx staph aureus pna/MSSA, hx sepsis - cefepime - day # 4 abx, plan to treat for 7 days - f/u on labs, monitor chest x-ray as indicated - clinically stable 2. The patient has severe hypernatremia. 3. Dehydration. 4. Acute kidney injury. 5. Elevated creatinine. 6. Intravenous fluids. 7. Hypothermia. 8. Pancytopenia. Workup per Hematology/Oncology. 9. Hypertension. 10. Coronary artery disease. 11. Congestive heart failure. 12. Automatic implanted cardioverter. 13. Subdural hematoma. 14. Severe dementia. 15. Aspiration risk. 16. No known drug allergies. 17. Social history is negative. 18. Family history is noncontributory. 19. MAR was noted. 20. Case was discussed with RN. 21. Encephalopathy. 22. Skin care protocol. 23. The patient is DNR/DNI. 24. aspiration precautions 25. mrsa colonization 26. wound care per protocol - sacral wound noted and not acutely infected Subjective Constitutional: Denies: fever HEENT: Denies: congestion Respiratory: Denies: shortness of breath Cardiovascular: Denies: chest pain Gastrointestinal/Abdominal: Denies: nausea, vomiting, diarrhea Genitourinary: Reports: other - + pendleton Neurologic: Denies: headache Psychiatric: Denies: depression Skin: Denies: rash Hematologic: Denies: bleeding Musculoskeletal: Denies: pain Allergies: Coded Allergies: No Known Allergies (Unverified , 01/06/19) Objective Vital Signs Last 24 Hour Vital Signs Date Time Temp Pulse Resp B/P (MAP) Pulse Ox O2 Delivery O2 Flow Rate FiO2 02/02/19 12:00 97.3 70 19 117/68 (84) 97 02/02/19 10:38 73 130/76 02/02/19 09:00 Room Air 02/02/19 08:00 96.1 73 16 130/76 (94) 99 02/02/19 04:00 98.7 71 18 123/66 (85) 96 02/02/19 00:05 98.2 70 17 140/96 (111) 93 02/01/19 21:16 66 144/105 02/01/19 20:15 Room Air 02/01/19 20:00 98.0 66 18 144/105 (118) 92 02/01/19 15:53 96.8 67 22 123/50 (74) 96 Height (Feet): 5 Height (Inches): 2.00 Weight (Pounds): 200 General Appearance: no acute distress HEENT: normocephalic, atraumatic, anicteric, mucous membranes moist Respiratory/Chest: lungs clear, normal breath sounds, no respiratory distress, no accessory muscle use Cardiovascular: normal rate, regular rhythm, no gallop/murmur, no JVD Abdomen: normal bowel sounds, soft, non tender, no organomegaly, non distended Genitourinary: other - + pendleton - urine clear Extremities: no cyanosis Skin: no rash Neurologic/Psychiatric: therapeutic strategy lead II-XII 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 Surgical clips are seen in the left axilla. The heart is borderline enlarged. The lungs demonstrate possible hazy infiltrate in left perihilar region Impression: Possible left perihilar infiltrate Borderline cardiomegaly Other findings as noted 01/12 - chest x-ray - Comparison: 01/10/2019 Findings: The heart is enlarged. There is patchy parenchymal opacity in the left suprahilar region which is not evident previously. There is equivocal minimal interstitial congestive change. The lungs and pleural spaces are otherwise grossly clear, although a pacemaker obscures much of the left lung. Surgical clips are seen in the left chest wall Impression: New or increased patchy left suprahilar opacity Equivocal minimal interstitial congestion Chest x-ray - 01/14/19 - Findings: Again demonstrated is a left chest AICD with epicardial leads. Surgical clips are seen in the left axilla. The heart is enlarged. The lungs and pleural spaces are clear. There is a right arm PICC Impression: No acute process Cardiomegaly Other findings as noted Chest x-ray - 01/21/19 Findings: Left chest AICD, right arm PICC again demonstrated. Interim development of small left pleural effusion. There may be some hazy infiltrate developing in the left perihilar region, although this is largely obscured by the pacemaker. The heart is enlarged.. Impression: New small left pleural effusion Possible left perihilar hazy infiltrate, also new 01/23/19 - FINDINGS: Lungs: Mild vascular congestion. No consolidation. Pleural space: Tiny bilateral pleural effusions. No pneumothorax. Heart: Cardiomegaly. Mediastinum: Unremarkable. Bones/joints: Unremarkable. Soft tissues: Left axillary surgical clips. Tubes, lines and devices: Cardiac pacemaker. Stable right PICC line. IMPRESSION: Mild vascular and interstitial congestion with tiny bilateral pleural effusions. Slightly worsening CHF. Microbiology Date/Time Source Procedure Growth Status 01/06/19 17:25 Blood Blood Culture - Final NO GROWTH AFTER 5 DAYS Complete 01/08/19 07:00 Sputum Induced Gram Stain - Final Complete 01/08/19 07:00 Sputum Culture - Final Staphylococcus Aureus Complete 01/29/19 16:15 Urine,Clean Catch Urine Culture - Final Pseudomonas Aeruginosa Complete 01/06/19 18:10 Rectum VRE Culture - Final NO VANCOMYCIN RESISTANT ENTEROCOCCUS ... Complete 01/06/19 18:10 Rectum - Final NO CARBAPENEM-RESISTANT ENTEROBACTERI... Complete Laboratory Tests Test 02/02/19 05:55 White Blood Count 5.6 K/UL (4.8-10.8) Red Blood Count 2.86 M/UL (4.20-5.40) L Hemoglobin 9.2 G/DL (12.0-16.0) L Hematocrit 29.8 % (37.0-47.0) L Mean Corpuscular Volume 104 FL (80-99) H Mean Corpuscular Hemoglobin 32.3 PG (27.0-31.0) H Mean Corpuscular Hemoglobin Concent 31.0 G/DL (32.0-36.0) L Red Cell Distribution Width 18.0 % (11.6-14.8) H Platelet Count 91 K/UL (150-450) L Mean Platelet Volume 6.4 FL (6.5-10.1) L Neutrophils (%) (Auto) % (45.0-75.0) Lymphocytes (%) (Auto) % (20.0-45.0) Monocytes (%) (Auto) % (1.0-10.0) Eosinophils (%) (Auto) % (0.0-3.0) Basophils (%) (Auto) % (0.0-2.0) Differential Total Cells Counted 100 Neutrophils % (Manual) 81 % (45-75) H Lymphocytes % (Manual) 15 % (20-45) L Monocytes % (Manual) 4 % (1-10) Eosinophils % (Manual) 0 % (0-3) Basophils % (Manual) 0 % (0-2) Band Neutrophils 0 % (0-8) Platelet Estimate Decreased L Platelet Morphology Normal Polychromasia 1+ Hypochromasia 1+ Anisocytosis 2+ Macrocytosis 2+ Sodium Level 138 MMOL/L (136-145) Potassium Level 4.5 MMOL/L (3.5-5.1) Chloride Level 107 MMOL/L (98-107) Carbon Dioxide Level 21 MMOL/L (21-32) Anion Gap 10 mmol/L (5-15) Blood Urea Nitrogen 21 mg/dL (7-18) H Creatinine 1.8 MG/DL (0.55-1.30) H Estimat Glomerular Filtration Rate mL/min (>60) Glucose Level 114 MG/DL (74-106) H Calcium Level 9.0 MG/DL (8.5-10.1) Phosphorus Level 3.8 MG/DL (2.5-4.9) Magnesium Level 2.2 MG/DL (1.8-2.4) Total Bilirubin 0.7 MG/DL (0.2-1.0) Aspartate Amino Transf (AST/SGOT) 17 U/L (15-37) Alanine Aminotransferase (ALT/SGPT) 9 U/L (12-78) L Alkaline Phosphatase 90 U/L (46-116) Pro-B-Type Natriuretic Peptide 65373 pg/mL (0-125) H Total Protein 6.2 G/DL (6.4-8.2) L Albumin 2.7 G/DL (3.4-5.0) L Globulin 3.5 g/dL Albumin/Globulin Ratio 0.8 (1.0-2.7) L Current Medications Medications (Trade) Dose Ordered Sig/Nuria Route PRN Reason Start Time Stop Time Status Last Admin Dose Admin Carvedilol (Coreg) 12.5 mg EVERY 12 HOURS ORAL 01/31/19 21:00 02/12/19 20:59 02/02/19 10:38 Cefepime HCl 1 gm/ Dextrose 50 ml @ 100 mls/hr Q24H IVPB 01/31/19 17:00 02/07/19 16:59 3/18/19 18:12 Chlorhexidine Gluconate (Kaylee-Hex 2%) 1 applic DAILY@2000 TOPIC 01/13/19 20:00 02/12/19 19:59 02/01/19 21:16 Dextrose (Dextrose 50%) 25 ml Q30M PRN IV Hypoglycemia 01/13/19 04:00 02/05/19 18:59 Dextrose (Dextrose 50%) 50 ml Q30M PRN IV Hypoglycemia 01/13/19 04:00 02/05/19 18:59 Ergocalciferol (Drisdol) 50,000 intlu QWEEK ORAL 01/29/19 16:00 02/28/19 15:59 01/29/19 19:51 Famotidine (Pepcid) 20 mg BID ORAL 01/23/19 18:00 02/22/19 17:59 02/02/19 10:38 Tamsulosin HCl (Flomax) 0.4 mg Q12HR ORAL 01/30/19 21:00 03/01/19 20:59 02/02/19 10:38 Ninfa Vences MD Feb 02, 2019 15:48
--- NOTE | 2019-02-02 15:56 | Cardiac Electrophysiology PN ---
Assessment/Plan Assessment/Plan 1. Atrial fibrillation. On Coreg . Off anticoagulation for thrombocytopenia 2. Status post [employer] biventricular ICD. Nl Fx. No shocks 3. Congestive heart failure. BNP > 7200. EF 35%. On Coreg 4. Severe hypernatremia and renal failure. On IV fluids per Dr. Wells. 5. History of hypertension. On Coreg 6. MRSA PNA on Abx 7. Altered mental status. 8. Thrombocytopenia. 9. Hx of CVA with dysphasia DW RN Subjective Subjective Comfortable in NAD Objective Last 24 Hour Vital Signs Date Time Temp Pulse Resp B/P (MAP) Pulse Ox O2 Delivery O2 Flow Rate FiO2 02/02/19 12:00 97.3 70 19 117/68 (84) 97 02/02/19 10:38 73 130/76 02/02/19 09:00 Room Air 02/02/19 08:00 96.1 73 16 130/76 (94) 99 02/02/19 04:00 98.7 71 18 123/66 (85) 96 02/02/19 00:05 98.2 70 17 140/96 (111) 93 02/01/19 21:16 66 144/105 02/01/19 20:15 Room Air 02/01/19 20:00 98.0 66 18 144/105 (118) 92 Intake and Output 02/01/19 02/02/19 19:00 07:00 Intake Total 1040 ml Output Total 550 ml 150 ml Balance 490 ml -150 ml Intake Oral 240 ml IV Total 800 ml Output Urine Total 550 ml 150 ml # Voids 1 # Bowel Movements 1 1 Laboratory Tests Test 02/02/19 05:55 White Blood Count 5.6 K/UL (4.8-10.8) Red Blood Count 2.86 M/UL (4.20-5.40) L Hemoglobin 9.2 G/DL (12.0-16.0) L Hematocrit 29.8 % (37.0-47.0) L Mean Corpuscular Volume 104 FL (80-99) H Mean Corpuscular Hemoglobin 32.3 PG (27.0-31.0) H Mean Corpuscular Hemoglobin Concent 31.0 G/DL (32.0-36.0) L Red Cell Distribution Width 18.0 % (11.6-14.8) H Platelet Count 91 K/UL (150-450) L Mean Platelet Volume 6.4 FL (6.5-10.1) L Neutrophils (%) (Auto) % (45.0-75.0) Lymphocytes (%) (Auto) % (20.0-45.0) Monocytes (%) (Auto) % (1.0-10.0) Eosinophils (%) (Auto) % (0.0-3.0) Basophils (%) (Auto) % (0.0-2.0) Differential Total Cells Counted 100 Neutrophils % (Manual) 81 % (45-75) H Lymphocytes % (Manual) 15 % (20-45) L Monocytes % (Manual) 4 % (1-10) Eosinophils % (Manual) 0 % (0-3) Basophils % (Manual) 0 % (0-2) Band Neutrophils 0 % (0-8) Platelet Estimate Decreased L Platelet Morphology Normal Polychromasia 1+ Hypochromasia 1+ Anisocytosis 2+ Macrocytosis 2+ Sodium Level 138 MMOL/L (136-145) Potassium Level 4.5 MMOL/L (3.5-5.1) Chloride Level 107 MMOL/L (98-107) Carbon Dioxide Level 21 MMOL/L (21-32) Anion Gap 10 mmol/L (5-15) Blood Urea Nitrogen 21 mg/dL (7-18) H Creatinine 1.8 MG/DL (0.55-1.30) H Estimat Glomerular Filtration Rate mL/min (>60) Glucose Level 114 MG/DL (74-106) H Calcium Level 9.0 MG/DL (8.5-10.1) Phosphorus Level 3.8 MG/DL (2.5-4.9) Magnesium Level 2.2 MG/DL (1.8-2.4) Total Bilirubin 0.7 MG/DL (0.2-1.0) Aspartate Amino Transf (AST/SGOT) 17 U/L (15-37) Alanine Aminotransferase (ALT/SGPT) 9 U/L (12-78) L Alkaline Phosphatase 90 U/L (46-116) Pro-B-Type Natriuretic Peptide 48246 pg/mL (0-125) H Total Protein 6.2 G/DL (6.4-8.2) L Albumin 2.7 G/DL (3.4-5.0) L Globulin 3.5 g/dL Albumin/Globulin Ratio 0.8 (1.0-2.7) L Objective HEAD AND NECK: Mild JVD. LUNGS: Decreased breath sounds. CARDIOVASCULAR: Irregular S1 and S2 with no gallop. ICD in left subclavian. ABDOMEN: Soft. EXTREMITIES: No pitting edema. Gabe Hi MD Feb 02, 2019 15:56
[2019-02-02 16:00] VITALS: BP 125/64
--- NOTE | 2019-02-02 16:35 | Nephrology Progress Note ---
Assessment/Plan Problem List: (1) Acute renal failure Assessment: cr up 1.7 (2) Urinary outflow obstruction (3) Dehydration (4) Hypernatremia (5) Anemia Assessment: worsening Assessment acute Renal Failure Cr 1.7 Sepsis / UTI / Pneumonia Acute metabolic Encephalopathy Hypernatremia AICD AT FIB CAD HTN presents with Low BP Anemia DNR DNI Plan DC [place], FAILED as patient started to retain- pendleton back in- FLUID CHALLENGE has UTI slow hydration start Flomax k & Phos as needed watch for chf hold mind altering meds pepcid DC Motrin !!! Subjective ROS Limited/Unobtainable: No Constitutional: Reports: malaise Objective Objective Last 24 Hour Vital Signs Date Time Temp Pulse Resp B/P (MAP) Pulse Ox O2 Delivery O2 Flow Rate FiO2 02/02/19 12:00 97.3 70 19 117/68 (84) 97 02/02/19 10:38 73 130/76 02/02/19 09:00 Room Air 02/02/19 08:00 96.1 73 16 130/76 (94) 99 02/02/19 04:00 98.7 71 18 123/66 (85) 96 02/02/19 00:05 98.2 70 17 140/96 (111) 93 02/01/19 21:16 66 144/105 02/01/19 20:15 Room Air 02/01/19 20:00 98.0 66 18 144/105 (118) 92 Intake and Output 02/01/19 02/02/19 19:00 07:00 Intake Total 1040 ml Output Total 550 ml 150 ml Balance 490 ml -150 ml Intake Oral 240 ml IV Total 800 ml Output Urine Total 550 ml 150 ml # Voids 1 # Bowel Movements 1 1 Laboratory Tests 02/02/19 05:55: White Blood Count 5.6, Red Blood Count 2.86L, Hemoglobin 9.2L, Hematocrit 29.8L , Mean Corpuscular Volume 104H, Mean Corpuscular Hemoglobin 32.3H, Mean Corpuscular Hemoglobin Concent 31.0L, Red Cell Distribution Width 18.0H, Platelet Count 91L, Mean Platelet Volume 6.4L, Neutrophils (%) (Auto) , Lymphocytes (%) (Auto) , Monocytes (%) (Auto) , Eosinophils (%) (Auto) , Basophils (%) (Auto) , Differential Total Cells Counted 100, Neutrophils % ( Manual) 81H, Lymphocytes % (Manual) 15L, Monocytes % (Manual) 4, Eosinophils % ( Manual) 0, Basophils % (Manual) 0, Band Neutrophils 0, Platelet Estimate DecreasedL, Platelet Morphology Normal, Polychromasia 1+, Hypochromasia 1+, Anisocytosis 2+, Macrocytosis 2+, Sodium Level 138, Potassium Level 4.5, Chloride Level 107, Carbon Dioxide Level 21, Anion Gap 10, Blood Urea Nitrogen 21H, Creatinine 1.8H, Estimat Glomerular Filtration Rate , Glucose Level 114H, Calcium Level 9.0, Phosphorus Level 3.8, Magnesium Level 2.2, Total Bilirubin 0.7, Aspartate Amino Transf (AST/SGOT) 17, Alanine Aminotransferase (ALT/SGPT) 9L, Alkaline Phosphatase 90, Pro-B-Type Natriuretic Peptide 13160Q, Total Protein 6.2L, Albumin 2.7L, Globulin 3.5, Albumin/Globulin Ratio 0.8L Height (Feet): 5 Height (Inches): 2.00 Weight (Pounds): 200 General Appearance: no apparent distress Objective no change Noe Wells MD Feb 02, 2019 16:34
--- NOTE | 2019-02-02 16:44 | NUR ---
*-* DISCHARGE PLANNING *-* PATIENT AHS BEEN REFERRED TO: MARILEE QUEZADA P:[phone] F:[phone]
[2019-02-02] MEDS: D5NS 1,000 ML IV SCH (17:53)
--- NOTE | 2019-02-02 18:22 | General Progress Note ---
Assessment/Plan Assessment/Plan Assessment/Plan: # Severe Pancytopenia -- multiple etiologies could be related to underlying liver disease, medication-induced, infection versus viral syndrome, ID with abx now --> peripheral smear has been ordered and does not show significant abnormalities, however concerning Ca++ elevated --> SPEP is negative for bands --> Continue to monitor for improvement, trend cbc --> Hep panel and HIV are both negative --> US abd ordered to r/o cirrhosis and hepatosplenomegaly does not show it --> consider other causes, infections that could contribute --> reverse isolation if ANC is <2000 --> Give neupogen if ANC <1000 --> Transfuse if hgb <7, with 1 unit prbc --> plts have improved, thus was likely reactive process --> igA and issue transglutaminase igA ordered # Coagulation defect, unspecified (D68.9) aka coagulopathy, multifactorial usually related to poor PO intake versus medications, versus hepatitis v cirrhosis --> administer Vitamin K if patient is bleeding or FFP if the INR is >10 --> hold off on ffp unless active procedure/bleeding, first begin with vit K 10 --> mixing study as needed # Severe Sepsis woth likely hcap --> on abx as per ID team --> 01/20 is last day of abx --> currently restarted on abx as per id # Acute metabolic encephalopathy superimposed on severe dementia --> check blood cultures, lactate prn, and PCT --> appreciate id recs # Hypernatremia --> on fluids as per nephro # Chronic sCHF s/p AICD --> off anticoagulation, reviewed recs of Dr. Hi --> okay to restart given potentially benefit outweighs risk --> appreciate cardiology recs # Atrial fibrillation # VINH --> currently improving The timing of this note does not necessarily reflect the time of the patient was seen. Greatly appreciate consultation! Subjective Constitutional: Reports: no symptoms HEENT: Reports: no symptoms Cardiovascular: Denies: no symptoms, chest pain, edema, irregular heart rate, lightheadedness, palpitations, syncope, other Respiratory: Denies: no symptoms, cough, orthopnea, shortness of breath, SOB with excertion, SOB at rest, sputum, stridor, wheezing, other Genitourinary: Denies: no symptoms, burning, discharge, frequency, flank pain, hematuria, incontinence, pain, urgency, other Neurologic/Psychiatric: Denies: no symptoms, anxiety, depressed, emotional problems, headache, numbness, paresthesia, pre-existing deficit, seizure, tingling, tremors, weakness, other Endocrine: Denies: no symptoms, excessive sweating, flushing, intolerance to cold, intolerance to heat, increased hunger, increased thirst, increased urine, unexplained weight gain, unexplained weight loss, other Hematologic/Lymphatic: Denies: no symptoms, anemia, easy bleeding, easy bruising, other Allergies: Coded Allergies: No Known Allergies (Unverified , 01/06/19) Subjective 01/08: pending lab workup, us of the abd pending, spep and dic panel pending 01/10: Seen by bedside, remains lethargic, no acute distress, plt remains low at 46 01/11: resting in bed, no acute distress, plt trending down 38 01/12: awake, comfortable, no acute distress noted, plt trending up 01/13: seen by bedside, awake, comfortable, no acute distress. 01/14: NG tube insertion, Pt is lethargic, plt trending up, hgb 7.7 01/15: lethargic, on 2L NC, no events, pending cbc today 01/17: plts are up trending, hgb 7.6, no events 01/18: seen by bedside, hgb 7.6, plt trending up, no events 01/20: out of the icu, completing abx today, feeling better, plt better 01/21: seen by bedside, awake, comfortable, plt trending up , hgb 7.8 01/22: Pt is awake, comfortable, no acute distress reported 01/24: awake, comfortable, no events reported, at bedside 01/25: Pt resting in bed, no distress reported, pending labs 01/26: resting in bed, comfortable, no events 01/27: awake, comfortable, no acute distress reported. 01/28: resting in bed, no events 01/29:awake, comfortable, no acute distress. 01/31: seen by bedside, no events 02/01: no events noted, no fevers or chills, cbc better 02/02: no fevers or chills, plt count 95k, Objective Last 24 Hour Vital Signs Date Time Temp Pulse Resp B/P (MAP) Pulse Ox O2 Delivery O2 Flow Rate FiO2 02/02/19 12:00 97.3 70 19 117/68 (84) 97 02/02/19 10:38 73 130/76 02/02/19 09:00 Room Air 02/02/19 08:00 96.1 73 16 130/76 (94) 99 02/02/19 04:00 98.7 71 18 123/66 (85) 96 02/02/19 00:05 98.2 70 17 140/96 (111) 93 02/01/19 21:16 66 144/105 02/01/19 20:15 Room Air 02/01/19 20:00 98.0 66 18 144/105 (118) 92 Intake and Output 02/01/19 02/02/19 19:00 07:00 Intake Total 1040 ml Output Total 550 ml 150 ml Balance 490 ml -150 ml Intake Oral 240 ml IV Total 800 ml Output Urine Total 550 ml 150 ml # Voids 1 # Bowel Movements 1 1 Laboratory Tests 02/02/19 05:55: White Blood Count 5.6, Red Blood Count 2.86L, Hemoglobin 9.2L, Hematocrit 29.8L , Mean Corpuscular Volume 104H, Mean Corpuscular Hemoglobin 32.3H, Mean Corpuscular Hemoglobin Concent 31.0L, Red Cell Distribution Width 18.0H, Platelet Count 91L, Mean Platelet Volume 6.4L, Neutrophils (%) (Auto) , Lymphocytes (%) (Auto) , Monocytes (%) (Auto) , Eosinophils (%) (Auto) , Basophils (%) (Auto) , Differential Total Cells Counted 100, Neutrophils % ( Manual) 81H, Lymphocytes % (Manual) 15L, Monocytes % (Manual) 4, Eosinophils % ( Manual) 0, Basophils % (Manual) 0, Band Neutrophils 0, Platelet Estimate DecreasedL, Platelet Morphology Normal, Polychromasia 1+, Hypochromasia 1+, Anisocytosis 2+, Macrocytosis 2+, Sodium Level 138, Potassium Level 4.5, Chloride Level 107, Carbon Dioxide Level 21, Anion Gap 10, Blood Urea Nitrogen 21H, Creatinine 1.8H, Estimat Glomerular Filtration Rate , Glucose Level 114H, Calcium Level 9.0, Phosphorus Level 3.8, Magnesium Level 2.2, Total Bilirubin 0.7, Aspartate Amino Transf (AST/SGOT) 17, Alanine Aminotransferase (ALT/SGPT) 9L, Alkaline Phosphatase 90, Pro-B-Type Natriuretic Peptide 14144G, Total Protein 6.2L, Albumin 2.7L, Globulin 3.5, Albumin/Globulin Ratio 0.8L Height (Feet): 5 Height (Inches): 2.00 Weight (Pounds): 200 Objective PE General Appearance: lethargic ++2l NC Lines, tubes and drains: peripheral HEENT: normocephalic, atraumatic. NG tube insertion Neck: normal alignment Respiratory/Chest: lungs clear, normal breath sounds Cardiovascular/Chest: normal peripheral pulses, normal rate Abdomen: non tender, soft, no organomegaly Extremities: non-tender, normal inspection : Blane Peralta MD Feb 02, 2019 18:22
[2019-02-02] MEDS ORDERED: Tubing IV Secondary IV ONE (19:05)
[2019-02-02] MEDS ORDERED: D5W 550ml IV ONE (19:05)
--- NOTE | 2019-02-02 19:16 | NUR ---
HAND-OFF: Report given to RADAMES POLK.
--- NOTE | 2019-02-02 19:25 | General Progress Note ---
Assessment/Plan Assessment/Plan #Severe Sepsis -resolved #MSSA pneumonia, possibly due to aspiration -resolved #E. coli UTI s/p abx #Acute metabolic encephalopathy superimposed on severe dementia - improved #pseudomonas uti -cont cefepime x 7 days -aspiration precautions -pt pulled out NGT, cont liquify pureed, able to eat with / sons at bedside -discussed with and sons, does not want PEG #Hypernatremia -resolved -monitor BMP -Nephrology following #Hypomag #hypokalemia -REpleted -CTM #Chronic sCHF s/p AICD #Atrial fibrillation #HTN #CAD -HTN controlled -Continue Coreg -Cardiology eval appreciated -not on AC due to thrombocytopenia -off tele #Dispo -awaiting placement VTE PPx Heparin SC DNR/DNI I spent 45 min on this patients care, and 34 min was dedicated to counseling and /or care coordination Time of note may not represent time of encounter Subjective Allergies: Coded Allergies: No Known Allergies (Unverified , 01/06/19) Subjective No acute overnight events, mental status improved, has no complaints, discussed with sons and , [place] SNF [place], discussed with cm, pending placement Objective Last 24 Hour Vital Signs Date Time Temp Pulse Resp B/P (MAP) Pulse Ox O2 Delivery O2 Flow Rate FiO2 02/02/19 16:00 97.6 75 18 125/64 (84) 75 02/02/19 12:00 97.3 70 19 117/68 (84) 97 02/02/19 10:38 73 130/76 02/02/19 09:00 Room Air 02/02/19 08:00 96.1 73 16 130/76 (94) 99 02/02/19 04:00 98.7 71 18 123/66 (85) 96 02/02/19 00:05 98.2 70 17 140/96 (111) 93 02/01/19 21:16 66 144/105 02/01/19 20:15 Room Air 02/01/19 20:00 98.0 66 18 144/105 (118) 92 Intake and Output 02/01/19 02/02/19 19:00 07:00 Intake Total 1040 ml Output Total 550 ml 150 ml Balance 490 ml -150 ml Intake Oral 240 ml IV Total 800 ml Output Urine Total 550 ml 150 ml # Voids 1 # Bowel Movements 1 1 Laboratory Tests 02/02/19 05:55: White Blood Count 5.6, Red Blood Count 2.86L, Hemoglobin 9.2L, Hematocrit 29.8L , Mean Corpuscular Volume 104H, Mean Corpuscular Hemoglobin 32.3H, Mean Corpuscular Hemoglobin Concent 31.0L, Red Cell Distribution Width 18.0H, Platelet Count 91L, Mean Platelet Volume 6.4L, Neutrophils (%) (Auto) , Lymphocytes (%) (Auto) , Monocytes (%) (Auto) , Eosinophils (%) (Auto) , Basophils (%) (Auto) , Differential Total Cells Counted 100, Neutrophils % ( Manual) 81H, Lymphocytes % (Manual) 15L, Monocytes % (Manual) 4, Eosinophils % ( Manual) 0, Basophils % (Manual) 0, Band Neutrophils 0, Platelet Estimate DecreasedL, Platelet Morphology Normal, Polychromasia 1+, Hypochromasia 1+, Anisocytosis 2+, Macrocytosis 2+, Sodium Level 138, Potassium Level 4.5, Chloride Level 107, Carbon Dioxide Level 21, Anion Gap 10, Blood Urea Nitrogen 21H, Creatinine 1.8H, Estimat Glomerular Filtration Rate , Glucose Level 114H, Calcium Level 9.0, Phosphorus Level 3.8, Magnesium Level 2.2, Total Bilirubin 0.7, Aspartate Amino Transf (AST/SGOT) 17, Alanine Aminotransferase (ALT/SGPT) 9L, Alkaline Phosphatase 90, Pro-B-Type Natriuretic Peptide 40578E, Total Protein 6.2L, Albumin 2.7L, Globulin 3.5, Albumin/Globulin Ratio 0.8L Height (Feet): 5 Height (Inches): 2.00 Weight (Pounds): 200 Objective General: alert, cooperative, no distress, appears stated age Head: normocephalic, without obvious abnormality, atraumatic Eyes: conjunctivae/corneas clear. PERRL, EOM's intact Throat: lips, mucosa, and tongue normal. MMM Neck: supple, symmetrical, trachea midline, and no JVD Lungs: clear to auscultation bilaterally Heart: regular rate and rhythm, S1, S2 normal, no murmur, click, rub or gallop Abdomen: soft, non-tender, non-distended, bowel sounds normal; no masses or organomegaly Extremities: extremities normal, atraumatic, no cyanosis or edema Pulses: 2+ and symmetric Skin: skin color, texture, turgor normal; no rashes or lesions Neurologic: grossly normal, no focal deficits Tamanna Ontiveros MD Feb 02, 2019 19:25
--- NOTE | 2019-02-02 19:30 | NUR ---
NURSE NOTES: Patient asleep in bed, no signs of pain. Not in acute respiratory distress. Call light and needs in reach. Bed in lowest position, lock engaged and alarm on. Will continue to monitor.
[2019-02-02 20:00] VITALS: BP 139/83
[2019-02-02] MEDS: Dyna-Hex 2% Top Sol 2oz TOPIC SCH (21:06)
[2019-02-03] VITALS (7 sets, daily range): BP systolic 133–160; BP diastolic 70–117
[2019-02-03 07:35] LABS: ALANINE AMINOTRANSFERASE 8 U/L (12-78); ALBUMIN 2.7 G/DL (3.4-5.0); ALBUMIN/GLOBULIN RATIO 0.7 (1.0-2.7); ALKALINE PHOSPHATASE 99 U/L (46-116); ANION GAP 14 mmol/L (5-15); ASPARTATE AMINO TRANSFERASE 21 U/L (15-37); BILIRUBIN,TOTAL 0.8 MG/DL (0.2-1.0); BLOOD UREA NITROGEN 22 mg/dL (7-18); CALCIUM 9.3 MG/DL (8.5-10.1); CARBON DIOXIDE 20 MMOL/L (21-32); CHLORIDE 106 MMOL/L (98-107); CREATININE 1.7 MG/DL (0.55-1.30); POTASSIUM 4.3 MMOL/L (3.5-5.1); SODIUM 140 MMOL/L (136-145)
--- NOTE | 2019-02-03 07:36 | NUR ---
NURSE NOTES: Patient asleep, on room air, no sign of distress and shortness of breath; no sign of chest pain; Bowens in place, drains yellow urine; [id number] arm, fluid running; side rails up x2, breaks engaged; bed at lowest position; will keep monitoring.
--- NOTE | 2019-02-03 07:37 | NUR ---
HAND-OFF: Report given to RADAMES Oshea.
[2019-02-03] MEDS: Carvedilol 12.5mg tab ORAL SCH ×2 (08:50→21:38)
[2019-02-03] MEDS: Tamsulosin 0.4mg cap ORAL SCH ×2 (08:50→21:38)
--- NOTE | 2019-02-03 11:43 | NUR ---
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
--- NOTE | 2019-02-03 11:47 | General Progress Note ---
Assessment/Plan Assessment/Plan Assessment/Plan: # Severe Pancytopenia -- multiple etiologies could be related to underlying liver disease, medication-induced, infection versus viral syndrome, ID with abx now --> peripheral smear has been ordered and does not show significant abnormalities, however concerning Ca++ elevated --> SPEP is negative for bands --> Continue to monitor for improvement, trend cbc --> Hep panel and HIV are both negative --> US abd ordered to r/o cirrhosis and hepatosplenomegaly does not show it --> consider other causes, infections that could contribute --> reverse isolation if ANC is <2000 --> Give neupogen if ANC <1000 --> Transfuse if hgb <7, with 1 unit prbc --> plts have improved, thus was likely reactive process --> igA and issue transglutaminase igA ordered # Coagulation defect, unspecified (D68.9) aka coagulopathy, multifactorial usually related to poor PO intake versus medications, versus hepatitis v cirrhosis --> administer Vitamin K if patient is bleeding or FFP if the INR is >10 --> hold off on ffp unless active procedure/bleeding, first begin with vit K 10 --> mixing study as needed # Severe Sepsis woth likely hcap --> on abx as per ID team --> 01/20 is last day of abx --> currently restarted on abx as per id # Acute metabolic encephalopathy superimposed on severe dementia --> check blood cultures, lactate prn, and PCT --> appreciate id recs # Hypernatremia --> on fluids as per nephro # Chronic sCHF s/p AICD --> off anticoagulation, reviewed recs of Dr. Hi --> okay to restart given potentially benefit outweighs risk --> appreciate cardiology recs # Atrial fibrillation # VINH --> currently improving The timing of this note does not necessarily reflect the time of the patient was seen. Greatly appreciate consultation! Subjective Constitutional: Denies: no symptoms, chills, diaphoresis, fever, malaise, weakness, other HEENT: Denies: no symptoms, eye pain, blurred vision, tearing, double vision, ear pain, ear discharge, nose pain, nose congestion, throat pain, throat swelling, mouth pain, mouth swelling, other Cardiovascular: Denies: no symptoms, chest pain, edema, irregular heart rate, lightheadedness, palpitations, syncope, other Respiratory: Denies: no symptoms, cough, orthopnea, shortness of breath, SOB with excertion, SOB at rest, sputum, stridor, wheezing, other Gastrointestinal/Abdominal: Denies: no symptoms, abdomen distended, abdominal pain, black stools, tarry stools, blood in stool, constipated, diarrhea, difficulty swallowing, nausea, poor appetite, poor fluid intake, rectal bleeding , vomiting, other Genitourinary: Denies: no symptoms, burning, discharge, frequency, flank pain, hematuria, incontinence, pain, urgency, other Neurologic/Psychiatric: Denies: no symptoms, anxiety, depressed, emotional problems, headache, numbness, paresthesia, pre-existing deficit, seizure, tingling, tremors, weakness, other Endocrine: Denies: no symptoms, excessive sweating, flushing, intolerance to cold, intolerance to heat, increased hunger, increased thirst, increased urine, unexplained weight gain, unexplained weight loss, other Hematologic/Lymphatic: Denies: no symptoms, anemia, easy bleeding, easy bruising, other Allergies: Coded Allergies: No Known Allergies (Unverified , 01/06/19) Subjective 01/08: pending lab workup, us of the abd pending, spep and dic panel pending 01/10: Seen by bedside, remains lethargic, no acute distress, plt remains low at 46 01/11: resting in bed, no acute distress, plt trending down 38 01/12: awake, comfortable, no acute distress noted, plt trending up 01/13: seen by bedside, awake, comfortable, no acute distress. 01/14: NG tube insertion, Pt is lethargic, plt trending up, hgb 7.7 01/15: lethargic, on 2L NC, no events, pending cbc today 01/17: plts are up trending, hgb 7.6, no events 01/18: seen by bedside, hgb 7.6, plt trending up, no events 01/20: out of the icu, completing abx today, feeling better, plt better 01/21: seen by bedside, awake, comfortable, plt trending up , hgb 7.8 01/22: Pt is awake, comfortable, no acute distress reported 01/24: awake, comfortable, no events reported, at bedside 01/25: Pt resting in bed, no distress reported, pending labs 3: resting in bed, comfortable, no events 01/27: awake, comfortable, no acute distress reported. 01/28: resting in bed, no events 01/29:awake, comfortable, no acute distress. 01/31: seen by bedside, no events 02/01: no events noted, no fevers or chills, cbc better 02/02: no fevers or chills, plt count 95k, 02/03: resting in bed, no events reported. Objective Last 24 Hour Vital Signs Date Time Temp Pulse Resp B/P (MAP) Pulse Ox O2 Delivery O2 Flow Rate FiO2 02/03/19 09:00 Room Air 02/03/19 08:50 71 136/72 02/03/19 08:00 97.0 71 18 136/72 (93) 96 02/03/19 04:00 97.4 75 20 133/73 (93) 98 02/03/19 01:34 143/81 (101) 02/03/19 00:00 97.7 70 20 160/70 (100) 94 02/02/19 21:04 71 139/83 02/02/19 21:00 Room Air 02/02/19 20:00 97.7 71 20 139/83 (101) 97 02/02/19 16:00 97.6 75 18 125/64 (84) 75 02/02/19 12:00 97.3 70 19 117/68 (84) 97 Intake and Output 02/02/19 02/03/19 18:59 06:59 Intake Total 360 ml Output Total 600 ml Balance 360 ml -600 ml Intake Oral 360 ml Output Urine Total 600 ml Laboratory Tests 02/03/19 05:45: Sodium Level 140, Potassium Level 4.3, Chloride Level 106, Carbon Dioxide Level 20L, Anion Gap 14, Blood Urea Nitrogen 22H, Creatinine 1.7H, Estimat Glomerular Filtration Rate , Glucose Level 146H, Uric Acid 6.8, Calcium Level 9.3, Total Bilirubin 0.8, Aspartate Amino Transf (AST/SGOT) 21, Alanine Aminotransferase ( ALT/SGPT) 8L, Alkaline Phosphatase 99, Pro-B-Type Natriuretic Peptide 89076Z, Total Protein 6.7, Albumin 2.7L, Globulin 4.0, Albumin/Globulin Ratio 0.7L Height (Feet): 5 Height (Inches): 2.00 Weight (Pounds): 200 Objective PE General Appearance: lethargic ++2l NC Lines, tubes and drains: peripheral HEENT: normocephalic, atraumatic. NG tube insertion Neck: normal alignment Respiratory/Chest: lungs clear, normal breath sounds Cardiovascular/Chest: normal peripheral pulses, normal rate Abdomen: non tender, soft, no organomegaly Extremities: non-tender, normal inspection : Blane Peralta MD Feb 03, 2019 11:47
[2019-02-03] MEDS: D5NS 1,000 ML IV SCH (12:11)
--- NOTE | 2019-02-03 13:21 | General Progress Note ---
Assessment/Plan Assessment/Plan #Severe Sepsis -resolved #MSSA pneumonia, possibly due to aspiration -resolved #E. coli UTI s/p abx #Acute metabolic encephalopathy superimposed on severe dementia - improved #pseudomonas uti -cont cefepime x 7 days -aspiration precautions -pt pulled out NGT, cont liquify pureed, able to eat with / sons at bedside -discussed with and sons, does not want PEG #Hypernatremia -resolved -monitor BMP -Nephrology following #Hypomag #hypokalemia -REpleted -CTM #Chronic sCHF s/p AICD #Atrial fibrillation #HTN #CAD -HTN controlled -Continue Coreg -Cardiology eval appreciated -not on AC due to thrombocytopenia -off tele #Dispo -awaiting placement VTE PPx Heparin SC DNR/DNI I spent 45 min on this patients care, and 33 min was dedicated to counseling and /or care coordination Time of note may not represent time of encounter Subjective Date patient seen: Feb 03, 2019 Allergies: Coded Allergies: No Known Allergies (Unverified , 01/06/19) Subjective No acute overnight events, mental status improved, has no complaints, discussed with sons and , would like SNF [place], discussed with cm, pending placement Objective Last 24 Hour Vital Signs Date Time Temp Pulse Resp B/P (MAP) Pulse Ox O2 Delivery O2 Flow Rate FiO2 02/03/19 12:00 97.8 75 18 149/76 (100) 95 02/03/19 09:00 Room Air 02/03/19 08:50 71 136/72 02/03/19 08:00 97.0 71 18 136/72 (93) 96 02/03/19 04:00 97.4 75 20 133/73 (93) 98 02/03/19 01:34 143/81 (101) 02/03/19 00:00 97.7 70 20 160/70 (100) 94 02/02/19 21:04 71 139/83 02/02/19 21:00 Room Air 02/02/19 20:00 97.7 71 20 139/83 (101) 97 02/02/19 16:00 97.6 75 18 125/64 (84) 75 Intake and Output 02/02/19 02/03/19 18:59 06:59 Intake Total 360 ml Output Total 600 ml Balance 360 ml -600 ml Intake Oral 360 ml Output Urine Total 600 ml Laboratory Tests 02/03/19 05:45: Sodium Level 140, Potassium Level 4.3, Chloride Level 106, Carbon Dioxide Level 20L, Anion Gap 14, Blood Urea Nitrogen 22H, Creatinine 1.7H, Estimat Glomerular Filtration Rate , Glucose Level 146H, Uric Acid 6.8, Calcium Level 9.3, Total Bilirubin 0.8, Aspartate Amino Transf (AST/SGOT) 21, Alanine Aminotransferase ( ALT/SGPT) 8L, Alkaline Phosphatase 99, Pro-B-Type Natriuretic Peptide 56307V, Total Protein 6.7, Albumin 2.7L, Globulin 4.0, Albumin/Globulin Ratio 0.7L Height (Feet): 5 Height (Inches): 2.00 Weight (Pounds): 200 Objective General: alert, cooperative, no distress, appears stated age Head: normocephalic, without obvious abnormality, atraumatic Eyes: conjunctivae/corneas clear. PERRL, EOM's intact Throat: lips, mucosa, and tongue normal. MMM Neck: supple, symmetrical, trachea midline, and no JVD Lungs: clear to auscultation bilaterally Heart: regular rate and rhythm, S1, S2 normal, no murmur, click, rub or gallop Abdomen: soft, non-tender, non-distended, bowel sounds normal; no masses or organomegaly Extremities: extremities normal, atraumatic, no cyanosis or edema Pulses: 2+ and symmetric Skin: skin color, texture, turgor normal; no rashes or lesions Neurologic: grossly normal, no focal deficits Tamanna Ontiveros MD Feb 03, 2019 13:21
--- NOTE | 2019-02-03 16:01 | Cardiac Electrophysiology PN ---
Assessment/Plan Assessment/Plan 1. Atrial fibrillation. On Coreg . Off anticoagulation for thrombocytopenia 2. Status post [employer] biventricular ICD. Nl Fx. No shocks 3. Congestive heart failure. BNP > 2700. EF 35%. On Coreg. Add Lisinopril 40 po daily 4. Severe hypernatremia and renal failure. On IV fluids per Dr. Wells. 5. History of hypertension. On Coreg 6. MRSA PNA on Abx 7. Altered mental status. 8. Thrombocytopenia. 9. Hx of CVA with dysphasia DW RN Subjective Subjective Comfortable in NAD. No CP or SOB Objective Last 24 Hour Vital Signs Date Time Temp Pulse Resp B/P (MAP) Pulse Ox O2 Delivery O2 Flow Rate FiO2 02/03/19 12:00 97.8 75 18 149/76 (100) 95 02/03/19 09:00 Room Air 02/03/19 08:50 71 136/72 02/03/19 08:00 97.0 71 18 136/72 (93) 96 02/03/19 04:00 97.4 75 20 133/73 (93) 98 02/03/19 01:34 143/81 (101) 02/03/19 00:00 97.7 70 20 160/70 (100) 94 02/02/19 21:04 71 139/83 02/02/19 21:00 Room Air 02/02/19 20:00 97.7 71 20 139/83 (101) 97 02/02/19 16:00 97.6 75 18 125/64 (84) 75 Intake and Output 02/02/19 02/03/19 19:00 07:00 Intake Total 360 ml 50 ml Output Total 600 ml Balance 360 ml -550 ml Intake Oral 360 ml IV Total 50 ml Output Urine Total 600 ml Laboratory Tests Test 02/03/19 05:45 Sodium Level 140 MMOL/L (136-145) Potassium Level 4.3 MMOL/L (3.5-5.1) Chloride Level 106 MMOL/L (98-107) Carbon Dioxide Level 20 MMOL/L (21-32) L Anion Gap 14 mmol/L (5-15) Blood Urea Nitrogen 22 mg/dL (7-18) H Creatinine 1.7 MG/DL (0.55-1.30) H Estimat Glomerular Filtration Rate mL/min (>60) Glucose Level 146 MG/DL (74-106) H Uric Acid 6.8 MG/DL (2.6-7.2) Calcium Level 9.3 MG/DL (8.5-10.1) Total Bilirubin 0.8 MG/DL (0.2-1.0) Aspartate Amino Transf (AST/SGOT) 21 U/L (15-37) Alanine Aminotransferase (ALT/SGPT) 8 U/L (12-78) L Alkaline Phosphatase 99 U/L (46-116) Pro-B-Type Natriuretic Peptide 91361 pg/mL (0-125) H Total Protein 6.7 G/DL (6.4-8.2) Albumin 2.7 G/DL (3.4-5.0) L Globulin 4.0 g/dL Albumin/Globulin Ratio 0.7 (1.0-2.7) L Objective HEAD AND NECK: Mild JVD. LUNGS: Decreased breath sounds. CARDIOVASCULAR: Irregular S1 and S2 with no gallop. ICD in left subclavian. ABDOMEN: Soft. EXTREMITIES: No pitting edema. Gabe Hi MD Feb 03, 2019 16:01
--- NOTE | 2019-02-03 16:07 | Nephrology Progress Note ---
Assessment/Plan Problem List: (1) Acute renal failure Assessment: cr up 1.7 (2) Urinary outflow obstruction (3) Dehydration (4) Hypernatremia (5) Anemia Assessment: worsening Assessment acute Renal Failure Cr 1.7 Sepsis / UTI / Pneumonia Acute metabolic Encephalopathy Hypernatremia AICD AT FIB CAD HTN presents with Low BP Anemia DNR DNI Plan DC Pendleton, FAILED as patient started to retain- pendleton back in- FLUID CHALLENGE has UTI slow hydration start Flomax k & Phos as needed watch for chf hold mind altering meds pepcid DC Motrin !!! Subjective ROS Limited/Unobtainable: No Constitutional: Reports: malaise Objective Objective Last 24 Hour Vital Signs Date Time Temp Pulse Resp B/P (MAP) Pulse Ox O2 Delivery O2 Flow Rate FiO2 02/03/19 12:00 97.8 75 18 149/76 (100) 95 02/03/19 09:00 Room Air 02/03/19 08:50 71 136/72 02/03/19 08:00 97.0 71 18 136/72 (93) 96 02/03/19 04:00 97.4 75 20 133/73 (93) 98 02/03/19 01:34 143/81 (101) 02/03/19 00:00 97.7 70 20 160/70 (100) 94 02/02/19 21:04 71 139/83 02/02/19 21:00 Room Air 02/02/19 20:00 97.7 71 20 139/83 (101) 97 Intake and Output 02/02/19 02/03/19 19:00 07:00 Intake Total 360 ml 50 ml Output Total 600 ml Balance 360 ml -550 ml Intake Oral 360 ml IV Total 50 ml Output Urine Total 600 ml Laboratory Tests 02/03/19 05:45: Sodium Level 140, Potassium Level 4.3, Chloride Level 106, Carbon Dioxide Level 20L, Anion Gap 14, Blood Urea Nitrogen 22H, Creatinine 1.7H, Estimat Glomerular Filtration Rate , Glucose Level 146H, Uric Acid 6.8, Calcium Level 9.3, Total Bilirubin 0.8, Aspartate Amino Transf (AST/SGOT) 21, Alanine Aminotransferase ( ALT/SGPT) 8L, Alkaline Phosphatase 99, Pro-B-Type Natriuretic Peptide 70320T, Total Protein 6.7, Albumin 2.7L, Globulin 4.0, Albumin/Globulin Ratio 0.7L Height (Feet): 5 Height (Inches): 2.00 Weight (Pounds): 200 General Appearance: no apparent distress Objective no change Noe Wells MD Feb 03, 2019 16:07
--- NOTE | 2019-02-03 19:26 | NUR ---
HAND-OFF: Report given to RADAMES Johnson.
--- NOTE | 2019-02-03 19:37 | NUR ---
NURSE NOTES: Patient awake in bed. Complained of minimal pain. Will medicate as ordered. Instructed the use of call light. Call light and needs in reach. Bed in lowest position, lock engaged and alarm on. Will continue to monitor.
[2019-02-03] MEDS: Dyna-Hex 2% Top Sol 2oz TOPIC SCH (20:00)
[2019-02-04] VITALS: BP 110/68
[2019-02-04 04:00] VITALS: BP 92/65
--- NOTE | 2019-02-04 07:30 | NUR ---
HAND-OFF: Report given to RADAMES Oshea.
--- NOTE | 2019-02-04 07:38 | NUR ---
NURSE NOTES: Patient alert x1, confused; on room air, no sign of shortness of breath; no sign of distress; Bowens in place, drains yellow urine; IV PICC on R-Upper arm, fluid running; side rails up x2, breaks engaged, bed at lowest position. Will keep monitoring.
[2019-02-04 07:58] LABS: HEMATOCRIT 30.5 % (37.0-47.0); HEMOGLOBIN 9.3 G/DL (12.0-16.0); MEAN CORPUSCULAR VOLUME 104 FL (80-99); PLATELET COUNT 88 K/UL (150-450); RED BLOOD COUNT 2.93 M/UL (4.20-5.40); RED CELL DISTRIBUTION WIDTH 17.6 % (11.6-14.8)
[2019-02-04 08:00] VITALS: BP 123/71
[2019-02-04] MEDS: Furosemide 40mg tab ORAL SCH (08:43)
[2019-02-04] MEDS: Carvedilol 12.5mg tab ORAL SCH ×3 (08:43→21:12)
[2019-02-04] MEDS: Tamsulosin 0.4mg cap ORAL SCH ×3 (08:43→21:13)
[2019-02-04] MEDS: D5NS 1,000 ML IV SCH (08:47)
--- NOTE | 2019-02-04 09:17 | NUR ---
MOBILE HOME PARK MANAGER Co-Signature: Reviewed patient's chart. Reviewed and approved MOBILE HOME PARK MANAGER notes Addendum: 02/04/19 at 0918 by WILLIAM JONES PT,MG Amended: Links added.
--- NOTE | 2019-02-04 09:17 | NUR ---
ROVING DEPARTMENT SUPERVISOR Co-Signature: Reviewed patient's chart. Reviewed and approved ROVING DEPARTMENT SUPERVISOR notes Addendum: 02/04/19 at 0918 by WILLIAM JONES PT,MG Amended: Links added.
--- NOTE | 2019-02-04 09:18 | NUR ---
WIRE DROPPER Co-Signature: Reviewed patient's chart. Reviewed and approved WIRE DROPPER notes Addendum: 02/04/19 at 0918 by WILLIAM JONES PT,MG Amended: Links added.
[2019-02-04 12:00] VITALS: BP 144/89
--- NOTE | 2019-02-04 12:29 | NUR ---
CONSTRUCTION SITE CROSSING GUARDHOME SECURITY ALARM INSTALLER SI:SEPSIS VS:BP 144/89, P 72, T 97.4, RR 20, SpO2 95 RBC 2.93, Hgb 9.3, Hct 30.5 IS: FLOMAX 0.4mg PEPCID 20mg COREG 12.5mg LASIX 40mg D5/NS x1L IV MED/SURG STATUS
--- NOTE | 2019-02-04 13:55 | Infectious Diseases Prog Note ---
Assessment/Plan Assessment/Plan ASSESSMENT AND PLAN: 1. pseudomonas uti, hx e.coli uti, hx staph aureus pna/MSSA, hx sepsis - cefepime - day # 6 abx, plan to treat for 7 days - f/u on labs, monitor chest x-ray as indicated - clinically stable 2. The patient has severe hypernatremia. 3. Dehydration. 4. Acute kidney injury. 5. Elevated creatinine. 6. Intravenous fluids. 7. Hypothermia. 8. Pancytopenia. Workup per Hematology/Oncology. 9. Hypertension. 10. Coronary artery disease. 11. Congestive heart failure. 12. Automatic implanted cardioverter. 13. Subdural hematoma. 14. Severe dementia. 15. Aspiration risk. 16. No known drug allergies. 17. Social history is negative. 18. Family history is noncontributory. 19. MAR was noted. 20. Case was discussed with RN. 21. Encephalopathy. 22. Skin care protocol. 23. The patient is DNR/DNI. 24. aspiration precautions 25. mrsa colonization 26. wound care per protocol - sacral wound noted and not acutely infected Subjective Constitutional: Denies: fever HEENT: Denies: congestion Respiratory: Denies: shortness of breath Cardiovascular: Denies: chest pain Gastrointestinal/Abdominal: Reports: other - no abdominal pain ; Denies: nausea , vomiting, diarrhea Genitourinary: Reports: other - + pendleton Neurologic: Reports: other - no sz Psychiatric: Reports: other - na Skin: Denies: rash Hematologic: Denies: bleeding Musculoskeletal: Denies: pain Allergies: Coded Allergies: No Known Allergies (Unverified , 01/06/19) Objective Vital Signs Last 24 Hour Vital Signs Date Time Temp Pulse Resp B/P (MAP) Pulse Ox O2 Delivery O2 Flow Rate FiO2 02/04/19 12:00 97.8 72 20 144/89 (107) 99 02/04/19 09:00 Room Air 02/04/19 08:43 72 123/71 02/04/19 08:00 97.5 72 19 123/71 (88) 95 02/04/19 04:00 97.4 61 19 92/65 (74) 97 02/04/19 00:00 97.4 75 20 110/68 (82) 98 02/03/19 21:38 74 154/117 02/03/19 21:00 Room Air 02/03/19 20:00 97.6 74 17 154/117 (129) 99 02/03/19 16:00 98.6 82 19 133/77 (95) 97 Height (Feet): 5 Height (Inches): 2.00 Weight (Pounds): 200 General Appearance: no acute distress HEENT: normocephalic, atraumatic, anicteric, mucous membranes moist, supple, no JVD Respiratory/Chest: lungs clear, normal breath sounds, no respiratory distress, no accessory muscle use Cardiovascular: normal rate, regular rhythm, no gallop/murmur, no JVD Abdomen: normal bowel sounds, soft, non tender, no organomegaly, non distended Genitourinary: other - + pendleton - urine slt cloudy Extremities: no cyanosis Skin: no rash Neurologic/Psychiatric: dental professional II-XII grossly normal, alert, responsive Lymphatic: no neck adenopathy Musculoskeletal: no effusion Objective 01/06 - chest x-ray - Comparison: none Findings: There is a left chest pacemaker, with an orphaned lead as well as epicardial leads. Surgical clips are seen in the left axilla. The heart is borderline enlarged. The lungs demonstrate possible hazy infiltrate in left perihilar region Impression: Possible left perihilar infiltrate Borderline cardiomegaly Other findings as noted 01/12 - chest x-ray - Comparison: 01/10/2019 Findings: The heart is enlarged. There is patchy parenchymal opacity in the left suprahilar region which is not evident previously. There is equivocal minimal interstitial congestive change. The lungs and pleural spaces are otherwise grossly clear, although a pacemaker obscures much of the left lung. Surgical clips are seen in the left chest wall Impression: New or increased patchy left suprahilar opacity Equivocal minimal interstitial congestion Chest x-ray - 01/14/19 - Findings: Again demonstrated is a left chest AICD with epicardial leads. Surgical clips are seen in the left axilla. The heart is enlarged. The lungs and pleural spaces are clear. There is a right arm PICC Impression: No acute process Cardiomegaly Other findings as noted Chest x-ray - 01/21/19 Findings: Left chest AICD, right arm PICC again demonstrated. Interim development of small left pleural effusion. There may be some hazy infiltrate developing in the left perihilar region, although this is largely obscured by the pacemaker. The heart is enlarged.. Impression: New small left pleural effusion Possible left perihilar hazy infiltrate, also new 01/23/19 - FINDINGS: Lungs: Mild vascular congestion. No consolidation. Pleural space: Tiny bilateral pleural effusions. No pneumothorax. Heart: Cardiomegaly. Mediastinum: Unremarkable. Bones/joints: Unremarkable. Soft tissues: Left axillary surgical clips. Tubes, lines and devices: Cardiac pacemaker. Stable right PICC line. IMPRESSION: Mild vascular and interstitial congestion with tiny bilateral pleural effusions. Slightly worsening CHF. Microbiology Date/Time Source Procedure Growth Status 01/06/19 17:25 Blood Blood Culture - Final NO GROWTH AFTER 5 DAYS Complete 01/08/19 07:00 Sputum Induced Gram Stain - Final Complete 01/08/19 07:00 Sputum Culture - Final Staphylococcus Aureus Complete 01/29/19 16:15 Urine,Clean Catch Urine Culture - Final Pseudomonas Aeruginosa Complete 01/06/19 18:10 Rectum VRE Culture - Final NO VANCOMYCIN RESISTANT ENTEROCOCCUS ... Complete 01/06/19 18:10 Rectum - Final NO CARBAPENEM-RESISTANT ENTEROBACTERI... Complete Labs Test 02/02/19 05:55 02/03/19 05:45 02/04/19 06:11 White Blood Count 5.6 K/UL (4.8-10.8) 5.0 K/UL (4.8-10.8) Red Blood Count 2.86 M/UL (4.20-5.40) 2.93 M/UL (4.20-5.40) Hemoglobin 9.2 G/DL (12.0-16.0) 9.3 G/DL (12.0-16.0) Hematocrit 29.8 % (37.0-47.0) 30.5 % (37.0-47.0) Mean Corpuscular Volume 104 FL (80-99) 104 FL (80-99) Mean Corpuscular Hemoglobin 32.3 PG (27.0-31.0) 31.6 PG (27.0-31.0) Mean Corpuscular Hemoglobin Concent 31.0 G/DL (32.0-36.0) 30.3 G/DL (32.0-36.0) Red Cell Distribution Width 18.0 % (11.6-14.8) 17.6 % (11.6-14.8) Platelet Count 91 K/UL (150-450) 88 K/UL (150-450) Mean Platelet Volume 6.4 FL (6.5-10.1) 7.7 FL (6.5-10.1) Neutrophils (%) (Auto) % (45.0-75.0) % (45.0-75.0) Lymphocytes (%) (Auto) % (20.0-45.0) % (20.0-45.0) Monocytes (%) (Auto) % (1.0-10.0) % (1.0-10.0) Eosinophils (%) (Auto) % (0.0-3.0) % (0.0-3.0) Basophils (%) (Auto) % (0.0-2.0) % (0.0-2.0) Differential Total Cells Counted 100 100 Neutrophils % (Manual) 81 % (45-75) 82 % (45-75) Lymphocytes % (Manual) 15 % (20-45) 12 % (20-45) Monocytes % (Manual) 4 % (1-10) 5 % (1-10) Eosinophils % (Manual) 0 % (0-3) 1 % (0-3) Basophils % (Manual) 0 % (0-2) 0 % (0-2) Band Neutrophils 0 % (0-8) 0 % (0-8) Platelet Estimate Decreased Decreased Platelet Morphology Normal Normal Polychromasia 1+ Hypochromasia 1+ Anisocytosis 2+ 1+ Macrocytosis 2+ Sodium Level 138 MMOL/L (136-145) 140 MMOL/L (136-145) Potassium Level 4.5 MMOL/L (3.5-5.1) 4.3 MMOL/L (3.5-5.1) Chloride Level 107 MMOL/L (98-107) 106 MMOL/L (98-107) Carbon Dioxide Level 21 MMOL/L (21-32) 20 MMOL/L (21-32) Anion Gap 10 mmol/L (5-15) 14 mmol/L (5-15) Blood Urea Nitrogen 21 mg/dL (7-18) 22 mg/dL (7-18) Creatinine 1.8 MG/DL (0.55-1.30) 1.7 MG/DL (0.55-1.30) Estimat Glomerular Filtration Rate mL/min (>60) mL/min (>60) Glucose Level 114 MG/DL (74-106) 146 MG/DL (74-106) Calcium Level 9.0 MG/DL (8.5-10.1) 9.3 MG/DL (8.5-10.1) Phosphorus Level 3.8 MG/DL (2.5-4.9) Magnesium Level 2.2 MG/DL (1.8-2.4) Total Bilirubin 0.7 MG/DL (0.2-1.0) 0.8 MG/DL (0.2-1.0) Aspartate Amino Transf (AST/SGOT) 17 U/L (15-37) 21 U/L (15-37) Alanine Aminotransferase (ALT/SGPT) 9 U/L (12-78) 8 U/L (12-78) Alkaline Phosphatase 90 U/L (46-116) 99 U/L (46-116) Pro-B-Type Natriuretic Peptide 86720 pg/mL (0-125) 32059 pg/mL (0-125) Total Protein 6.2 G/DL (6.4-8.2) 6.7 G/DL (6.4-8.2) Albumin 2.7 G/DL (3.4-5.0) 2.7 G/DL (3.4-5.0) Globulin 3.5 g/dL 4.0 g/dL Albumin/Globulin Ratio 0.8 (1.0-2.7) 0.7 (1.0-2.7) Uric Acid 6.8 MG/DL (2.6-7.2) Tear Drop Cells 1+ Ovalocytes 1+ Acanthocytes 1+ Laboratory Tests Test 02/04/19 06:11 White Blood Count 5.0 K/UL (4.8-10.8) Red Blood Count 2.93 M/UL (4.20-5.40) L Hemoglobin 9.3 G/DL (12.0-16.0) L Hematocrit 30.5 % (37.0-47.0) L Mean Corpuscular Volume 104 FL (80-99) H Mean Corpuscular Hemoglobin 31.6 PG (27.0-31.0) H Mean Corpuscular Hemoglobin Concent 30.3 G/DL (32.0-36.0) L Red Cell Distribution Width 17.6 % (11.6-14.8) H Platelet Count 88 K/UL (150-450) L Mean Platelet Volume 7.7 FL (6.5-10.1) Neutrophils (%) (Auto) % (45.0-75.0) Lymphocytes (%) (Auto) % (20.0-45.0) Monocytes (%) (Auto) % (1.0-10.0) Eosinophils (%) (Auto) % (0.0-3.0) Basophils (%) (Auto) % (0.0-2.0) Differential Total Cells Counted 100 Neutrophils % (Manual) 82 % (45-75) H Lymphocytes % (Manual) 12 % (20-45) L Monocytes % (Manual) 5 % (1-10) Eosinophils % (Manual) 1 % (0-3) Basophils % (Manual) 0 % (0-2) Band Neutrophils 0 % (0-8) Platelet Estimate Decreased L Platelet Morphology Normal Anisocytosis 1+ Tear Drop Cells 1+ Ovalocytes 1+ Acanthocytes 1+ Current Medications Medications (Trade) Dose Ordered Sig/Nuria Route PRN Reason Start Time Stop Time Status Last Admin Dose Admin Carvedilol (Coreg) 12.5 mg EVERY 12 HOURS ORAL 01/31/19 21:00 02/12/19 20:59 02/04/19 08:43 Cefepime HCl 1 gm/ Dextrose 50 ml @ 100 mls/hr Q24H IVPB 01/31/19 17:00 02/07/19 16:59 02/03/19 17:02 Chlorhexidine Gluconate (Kaylee-Hex 2%) 1 applic DAILY@2000 TOPIC 01/13/19 20:00 02/12/19 19:59 02/02/19 21:06 Dextrose (Dextrose 50%) 25 ml Q30M PRN IV Hypoglycemia 01/13/19 04:00 02/05/19 18:59 Dextrose (Dextrose 50%) 50 ml Q30M PRN IV Hypoglycemia 01/13/19 04:00 02/05/19 18:59 Dextrose/Sodium Chloride 1,000 ml @ 50 mls/hr Q20H IV 02/02/19 16:45 03/04/19 16:44 02/04/19 08:47 Ergocalciferol (Drisdol) 50,000 intlu QWEEK ORAL 01/29/19 16:00 02/28/19 15:59 01/29/19 19:51 Famotidine (Pepcid) 20 mg BID ORAL 01/23/19 18:00 02/22/19 17:59 02/04/19 08:43 Furosemide (Lasix) 40 mg DAILY ORAL 02/04/19 09:00 03/06/19 08:59 02/04/19 08:43 Tamsulosin HCl (Flomax) 0.4 mg Q12HR ORAL 01/30/19 21:00 03/01/19 20:59 02/04/19 08:43 Ninfa Vences MD Feb 04, 2019 13:55
--- NOTE | 2019-02-04 15:30 | General Progress Note ---
Assessment/Plan Assessment/Plan Assessment/Plan: # Severe Pancytopenia -- multiple etiologies could be related to underlying liver disease, medication-induced, infection versus viral syndrome, ID with abx now --> peripheral smear has been ordered and does not show significant abnormalities, however concerning Ca++ elevated --> SPEP is negative for bands --> Continue to monitor for improvement, trend cbc --> Hep panel and HIV are both negative --> US abd ordered to r/o cirrhosis and hepatosplenomegaly does not show it --> consider other causes, infections that could contribute --> reverse isolation if ANC is <2000 --> Give neupogen if ANC <1000 --> Transfuse if hgb <7, with 1 unit prbc --> plts have improved, thus was likely reactive process --> igA and tissue trans IgA are negative, thus LESS LIKELY SPRUE disease # Coagulation defect, unspecified (D68.9) aka coagulopathy, multifactorial usually related to poor PO intake versus medications, versus hepatitis v cirrhosis --> administer Vitamin K if patient is bleeding or FFP if the INR is >10 --> hold off on ffp unless active procedure/bleeding, first begin with vit K 10 --> mixing study as needed # Severe Sepsis woth likely hcap --> on abx as per ID team --> 3/ is last day of abx --> currently restarted on abx as per id # Acute metabolic encephalopathy superimposed on severe dementia --> check blood cultures, lactate prn, and PCT --> appreciate id recs # Hypernatremia --> on fluids as per nephro # Chronic sCHF s/p AICD --> off anticoagulation, reviewed recs of Dr. Hi --> okay to restart given potentially benefit outweighs risk --> appreciate cardiology recs # Atrial fibrillation # VINH --> currently improving The timing of this note does not necessarily reflect the time of the patient was seen. Greatly appreciate consultation! Subjective HEENT: Denies: no symptoms, eye pain, blurred vision, tearing, double vision, ear pain, ear discharge, nose pain, nose congestion, throat pain, throat swelling, mouth pain, mouth swelling, other Respiratory: Denies: no symptoms, cough, orthopnea, shortness of breath, SOB with excertion, SOB at rest, sputum, stridor, wheezing, other Gastrointestinal/Abdominal: Denies: no symptoms, abdomen distended, abdominal pain, black stools, tarry stools, blood in stool, constipated, diarrhea, difficulty swallowing, nausea, poor appetite, poor fluid intake, rectal bleeding , vomiting, other Genitourinary: Denies: no symptoms, burning, discharge, frequency, flank pain, hematuria, incontinence, pain, urgency, other Neurologic/Psychiatric: Denies: no symptoms, anxiety, depressed, emotional problems, headache, numbness, paresthesia, pre-existing deficit, seizure, tingling, tremors, weakness, other Endocrine: Denies: no symptoms, excessive sweating, flushing, intolerance to cold, intolerance to heat, increased hunger, increased thirst, increased urine, unexplained weight gain, unexplained weight loss, other Hematologic/Lymphatic: Denies: no symptoms, anemia, easy bleeding, easy bruising, other Allergies: Coded Allergies: No Known Allergies (Unverified , 01/06/19) Subjective 01/08: pending lab workup, us of the abd pending, spep and dic panel pending 01/10: Seen by bedside, remains lethargic, no acute distress, plt remains low at 46 01/11: resting in bed, no acute distress, plt trending down 38 01/12: awake, comfortable, no acute distress noted, plt trending up 01/13: seen by bedside, awake, comfortable, no acute distress. 01/14: NG tube insertion, Pt is lethargic, plt trending up, hgb 7.7 01/15: lethargic, on 2L NC, no events, pending cbc today 01/17: plts are up trending, hgb 7.6, no events 01/18: seen by bedside, hgb 7.6, plt trending up, no events 01/20: out of the icu, completing abx today, feeling better, plt better 01/21: seen by bedside, awake, comfortable, plt trending up , hgb 7.8 01/22: Pt is awake, comfortable, no acute distress reported 01/24: awake, comfortable, no events reported, at bedside 01/25: Pt resting in bed, no distress reported, pending labs 01/26: resting in bed, comfortable, no events 01/27: awake, comfortable, no acute distress reported. 01/28: resting in bed, no events 01/29:awake, comfortable, no acute distress. 01/31: seen by bedside, no events 02/01: no events noted, no fevers or chills, cbc better 02/02: no fevers or chills, plt count 95k, 02/03: resting in bed, no events reported 02/04: pendleton remains in place, with iv line, alert x1, no other changes Objective Last 24 Hour Vital Signs Date Time Temp Pulse Resp B/P (MAP) Pulse Ox O2 Delivery O2 Flow Rate FiO2 02/04/19 12:00 97.8 72 20 144/89 (107) 99 02/04/19 09:00 Room Air 02/04/19 08:43 72 123/71 02/04/19 08:00 97.5 72 19 123/71 (88) 95 02/04/19 04:00 97.4 61 19 92/65 (74) 97 02/04/19 00:00 97.4 75 20 110/68 (82) 98 02/03/19 21:38 74 154/117 02/03/19 21:00 Room Air 02/03/19 20:00 97.6 74 17 154/117 (129) 99 02/03/19 16:00 98.6 82 19 133/77 (95) 97 Intake and Output 02/03/19 02/04/19 18:59 06:59 Intake Total 820 ml 600 ml Balance 820 ml 600 ml Intake Oral 120 ml IV Total 700 ml 600 ml # Voids 1 Laboratory Tests 02/04/19 06:11: White Blood Count 5.0, Red Blood Count 2.93L, Hemoglobin 9.3L, Hematocrit 30.5L , Mean Corpuscular Volume 104H, Mean Corpuscular Hemoglobin 31.6H, Mean Corpuscular Hemoglobin Concent 30.3L, Red Cell Distribution Width 17.6H, Platelet Count 88L, Mean Platelet Volume 7.7, Neutrophils (%) (Auto) , Lymphocytes (%) (Auto) , Monocytes (%) (Auto) , Eosinophils (%) (Auto) , Basophils (%) (Auto) , Differential Total Cells Counted 100, Neutrophils % ( Manual) 82H, Lymphocytes % (Manual) 12L, Monocytes % (Manual) 5, Eosinophils % ( Manual) 1, Basophils % (Manual) 0, Band Neutrophils 0, Platelet Estimate DecreasedL, Platelet Morphology Normal, Anisocytosis 1+, Tear Drop Cells 1+, Ovalocytes 1+, Acanthocytes 1+ Height (Feet): 5 Height (Inches): 2.00 Weight (Pounds): 200 Objective PE General Appearance: lethargic ++2l NC Lines, tubes and drains: peripheral HEENT: normocephalic, atraumatic. NG tube insertion Neck: normal alignment Respiratory/Chest: lungs clear, normal breath sounds Cardiovascular/Chest: normal peripheral pulses, normal rate Abdomen: non tender, soft, no organomegaly Extremities: non-tender, normal inspection : Blane Peralta MD Feb 04, 2019 15:30
[2019-02-04 16:00] VITALS: BP 110/85
--- NOTE | 2019-02-04 16:21 | NUR ---
*-*DISCHARGE PLANNING *-* PATIENT HAS BEEN REFERRED TO: [facility] F:[phone]
--- NOTE | 2019-02-04 16:21 | NUR ---
*-* DISCHARGE PLANNING *-* PATIENT HAS BEEN REFERRED TO: [facility] P:[phone] F:[phone]
--- NOTE | 2019-02-04 16:59 | Nephrology Progress Note ---
Assessment/Plan Problem List: (1) Acute renal failure Assessment: cr up 1.7 (2) Urinary outflow obstruction (3) Dehydration (4) Hypernatremia (5) Anemia Assessment: worsening Assessment acute Renal Failure Cr 1.7 Sepsis / UTI / Pneumonia Acute metabolic Encephalopathy Hypernatremia AICD AT FIB CAD HTN presents with Low BP Anemia DNR DNI Plan DC Pendleton, FAILED as patient started to retain- pendleton back in- FLUID CHALLENGE has UTI slow hydration start Flomax k & Phos as needed watch for chf hold mind altering meds pepcid DC Motrin !!! Subjective ROS Limited/Unobtainable: No Constitutional: Reports: malaise, weakness Objective Objective Last 24 Hour Vital Signs Date Time Temp Pulse Resp B/P (MAP) Pulse Ox O2 Delivery O2 Flow Rate FiO2 02/04/19 16:00 97.5 68 20 110/85 (93) 96 02/04/19 12:00 97.8 72 20 144/89 (107) 99 02/04/19 09:00 Room Air 02/04/19 08:43 72 123/71 02/04/19 08:00 97.5 72 19 123/71 (88) 95 02/04/19 04:00 97.4 61 19 92/65 (74) 97 02/04/19 00:00 97.4 75 20 110/68 (82) 98 02/03/19 21:38 74 154/117 02/03/19 21:00 Room Air 02/03/19 20:00 97.6 74 17 154/117 (129) 99 Intake and Output 02/03/19 02/04/19 18:59 06:59 Intake Total 820 ml 600 ml Balance 820 ml 600 ml Intake Oral 120 ml IV Total 700 ml 600 ml # Voids 1 Laboratory Tests 02/04/19 06:11: White Blood Count 5.0, Red Blood Count 2.93L, Hemoglobin 9.3L, Hematocrit 30.5L , Mean Corpuscular Volume 104H, Mean Corpuscular Hemoglobin 31.6H, Mean Corpuscular Hemoglobin Concent 30.3L, Red Cell Distribution Width 17.6H, Platelet Count 88L, Mean Platelet Volume 7.7, Neutrophils (%) (Auto) , Lymphocytes (%) (Auto) , Monocytes (%) (Auto) , Eosinophils (%) (Auto) , Basophils (%) (Auto) , Differential Total Cells Counted 100, Neutrophils % ( Manual) 82H, Lymphocytes % (Manual) 12L, Monocytes % (Manual) 5, Eosinophils % ( Manual) 1, Basophils % (Manual) 0, Band Neutrophils 0, Platelet Estimate DecreasedL, Platelet Morphology Normal, Anisocytosis 1+, Tear Drop Cells 1+, Ovalocytes 1+, Acanthocytes 1+ Height (Feet): 5 Height (Inches): 2.00 Weight (Pounds): 200 General Appearance: no apparent distress, lethargic Cardiovascular: normal rate Respiratory/Chest: decreased breath sounds Abdomen: distended Objective no change Noe Wells MD Feb 04, 2019 16:59
--- NOTE | 2019-02-04 17:20 | Cardiac Electrophysiology PN ---
Assessment/Plan Assessment/Plan 1. Atrial fibrillation. On Coreg and off anticoagulation for thrombocytopenia 2. Status post Medtronic biventricular ICD. Nl Fx. No shocks 3. Congestive heart failure. BNP > 2700. EF 35%. On Coreg and Lisinopril 40 po daily 4. Severe hypernatremia and renal failure. On IV fluids per Dr. Wells. 5. History of hypertension. On Coreg 6. S/P MRSA PNA off Abx 7. Altered mental status. 8. Thrombocytopenia. 9. Hx of CVA with dysphasia DW RN Subjective Subjective Comfortable in NAD. Objective Last 24 Hour Vital Signs Date Time Temp Pulse Resp B/P (MAP) Pulse Ox O2 Delivery O2 Flow Rate FiO2 02/04/19 16:00 97.5 68 20 110/85 (93) 96 02/04/19 12:00 97.8 72 20 144/89 (107) 99 02/04/19 09:00 Room Air 02/04/19 08:43 72 123/71 02/04/19 08:00 97.5 72 19 123/71 (88) 95 02/04/19 04:00 97.4 61 19 92/65 (74) 97 02/04/19 00:00 97.4 75 20 110/68 (82) 98 02/03/19 21:38 74 154/117 02/03/19 21:00 Room Air 02/03/19 20:00 97.6 74 17 154/117 (129) 99 Intake and Output 02/03/19 02/04/19 18:59 06:59 Intake Total 820 ml 600 ml Balance 820 ml 600 ml Intake Oral 120 ml IV Total 700 ml 600 ml # Voids 1 Laboratory Tests Test 02/04/19 06:11 White Blood Count 5.0 K/UL (4.8-10.8) Red Blood Count 2.93 M/UL (4.20-5.40) L Hemoglobin 9.3 G/DL (12.0-16.0) L Hematocrit 30.5 % (37.0-47.0) L Mean Corpuscular Volume 104 FL (80-99) H Mean Corpuscular Hemoglobin 31.6 PG (27.0-31.0) H Mean Corpuscular Hemoglobin Concent 30.3 G/DL (32.0-36.0) L Red Cell Distribution Width 17.6 % (11.6-14.8) H Platelet Count 88 K/UL (150-450) L Mean Platelet Volume 7.7 FL (6.5-10.1) Neutrophils (%) (Auto) % (45.0-75.0) Lymphocytes (%) (Auto) % (20.0-45.0) Monocytes (%) (Auto) % (1.0-10.0) Eosinophils (%) (Auto) % (0.0-3.0) Basophils (%) (Auto) % (0.0-2.0) Differential Total Cells Counted 100 Neutrophils % (Manual) 82 % (45-75) H Lymphocytes % (Manual) 12 % (20-45) L Monocytes % (Manual) 5 % (1-10) Eosinophils % (Manual) 1 % (0-3) Basophils % (Manual) 0 % (0-2) Band Neutrophils 0 % (0-8) Platelet Estimate Decreased L Platelet Morphology Normal Anisocytosis 1+ Tear Drop Cells 1+ Ovalocytes 1+ Acanthocytes 1+ Objective HEAD AND NECK: Mild JVD. LUNGS: Decreased breath sounds. CARDIOVASCULAR: Irregular S1 and S2 with no gallop. ICD in left subclavian. ABDOMEN: Soft. EXTREMITIES: No pitting edema. Gabe Hi MD Feb 04, 2019 17:20
--- NOTE | 2019-02-04 19:38 | NUR ---
HAND-OFF: Report given to RADAMES Muller.
--- NOTE | 2019-02-04 19:39 | NUR ---
NURSE NOTES: Received report from RADAMES Oshea. Patient alert x1, confused; on room air, no sign of shortness of breath; no sign of distress; Bowens in place, patent, draining yellow urine; IV PICC on R-Upper arm, fluid running; side rails up x2, Bed locked, in lowest position. Will keep monitoring patient.
[2019-02-04 20:00] VITALS: BP 135/81
[2019-02-04] MEDS: Dyna-Hex 2% Top Sol 2oz TOPIC SCH (21:13)
[2019-02-05] VITALS: BP 141/72
[2019-02-05 04:00] VITALS: BP 128/62
[2019-02-05] MEDS: D5NS 1,000 ML IV SCH (06:00)
[2019-02-05 07:22] LABS: ALANINE AMINOTRANSFERASE 7 U/L (12-78); ALBUMIN 2.6 G/DL (3.4-5.0); ALBUMIN/GLOBULIN RATIO 0.7 (1.0-2.7); ALKALINE PHOSPHATASE 93 U/L (46-116); ANION GAP 13 mmol/L (5-15); ASPARTATE AMINO TRANSFERASE 18 U/L (15-37); BILIRUBIN,TOTAL 0.6 MG/DL (0.2-1.0); BLOOD UREA NITROGEN 23 mg/dL (7-18); CARBON DIOXIDE 19 MMOL/L (21-32); CHLORIDE 109 MMOL/L (98-107); CREATININE 1.8 MG/DL (0.55-1.30); PHOSPHORUS 3.4 MG/DL (2.5-4.9); POTASSIUM 4.3 MMOL/L (3.5-5.1); SODIUM 141 MMOL/L (136-145)
[2019-02-05 08:00] VITALS: BP 145/80
--- NOTE | 2019-02-05 08:46 | NUR ---
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
[2019-02-05] MEDS: Carvedilol 12.5mg tab ORAL SCH ×2 (08:49→22:36)
[2019-02-05] MEDS: Furosemide 40mg tab ORAL SCH (08:49)
[2019-02-05] MEDS: Tamsulosin 0.4mg cap ORAL SCH ×2 (08:49→22:37)
--- NOTE | 2019-02-05 10:25 | NUR ---
NURSE NOTES: pt in bed with no sob nor in any form of distress noted. pendleton draining well with no obstruction. will continue to montior
--- NOTE | 2019-02-05 11:51 | NUR ---
RD ASSESSMENT & RECOMMENDATIONS SEE CARE ACTIVITY FOR COMPLETE ASSESSMENT DAILY ESTIMATED NEEDS: Needs based on Wound, obese 58.8kg adj 25-30 kcals/kg 7972-9497 total kcals 1.25-1.5 g protein/kg 74-88 g total protein 25-30 mL/kg 8159-1206 total fluid mLs NUTRITION DIAGNOSIS: 1) Increased kcal and protein needs r/t wound healing as evidenced by pt w/ sacral stage 2 per RN, now healed. 2) Altered nutrition related lab values r/t water deficits, clinical condition, h/o DM as evidenced by pt adm w/ Na 165-> now normalized, elev BUN and creat, were both normalized, now trending back up, elev BGs (147 146). 3) Swallowing difficulty R/T dysphagia w/ h/o CVA, lethargy as evidenced by TIMBER SELECTOR initially recommended NPO, NGT was inserted, but s/p self removal of NGT, pt now back on liquify pureed, NTL diet w/ poor and variable PO intake. . CURRENT DIET:LOW NA/ liquify pureed, NTL + Glucerna TID PO DIET RECOMMENDATIONS: Liberalized REGULAR w/ poor PO/ texture per TIMBER SELECTOR ADDITIONAL RECOMMENDATIONS: 1) RE-calibrate bed scale w/ added P200 mattress, extended admission 2) SKIN INTEGRITY: MVI x 1, Paul 1pkt BID 3) Monitor BGs, need for hypoglycemic agent - h/o DM, BGs now improved 4) Monitor lytes closely w/ lasix, replete as needed 5) Continue Glucerna TID 6) Monitor renal fxn- BUN and creat slowly trend up 7) Consider APPETITE STIMULANT if medically indicated- consistently poor PO
[2019-02-05 12:00] VITALS: BP 128/73
--- NOTE | 2019-02-05 13:44 | Nephrology Progress Note ---
Assessment/Plan Problem List: (1) Acute renal failure Assessment: cr up 1.8 (2) Urinary outflow obstruction (3) Dehydration (4) Hypernatremia (5) Anemia Assessment: worsening Assessment acute Renal Failure Cr 1.7 Sepsis / UTI / Pneumonia Acute metabolic Encephalopathy Hypernatremia AICD AT FIB CAD HTN presents with Low BP Anemia DNR DNI Plan poor po, need tube feeding !? pendleton IV fluids , slow hydration UTI start Flomax k & Phos as needed watch for chf hold mind altering meds pepcid DC Motrin !!! Subjective ROS Limited/Unobtainable: No Constitutional: Reports: malaise, weakness, other - poor po Objective Objective Last 24 Hour Vital Signs Date Time Temp Pulse Resp B/P (MAP) Pulse Ox O2 Delivery O2 Flow Rate FiO2 02/05/19 09:19 Room Air 02/05/19 08:49 77 145/80 02/05/19 08:00 97.3 77 18 145/80 (101) 98 02/05/19 04:00 97.5 73 20 128/62 (84) 98 02/05/19 00:00 97.2 70 20 141/72 (95) 99 02/04/19 21:00 Room Air 02/04/19 20:00 97.2 71 20 135/81 (99) 99 02/04/19 16:00 97.5 68 20 110/85 (93) 96 Intake and Output 02/04/19 02/05/19 18:59 06:59 Intake Total 840 ml 600 ml Output Total 750 ml Balance 90 ml 600 ml Intake Oral 240 ml IV Total 600 ml 600 ml Output Urine Total 750 ml Laboratory Tests 02/05/19 06:30: Sodium Level 141, Potassium Level 4.3, Chloride Level 109H, Carbon Dioxide Level 19L, Anion Gap 13, Blood Urea Nitrogen 23H, Creatinine 1.8H, Estimat Glomerular Filtration Rate , Glucose Level 147H, Uric Acid 7.6H, Calcium Level 9.0, Phosphorus Level 3.4, Magnesium Level 2.1, Total Bilirubin 0.6, Aspartate Amino Transf (AST/SGOT) 18, Alanine Aminotransferase (ALT/SGPT) 7L, Alkaline Phosphatase 93, Total Protein 6.4, Albumin 2.6L, Globulin 3.8, Albumin/Globulin Ratio 0.7L Height (Feet): 5 Height (Inches): 2.00 Weight (Pounds): 200 General Appearance: other - poor po Neck: limited range of motion Respiratory/Chest: decreased breath sounds Abdomen: distended Objective no change Noe Wells MD Feb 05, 2019 13:44
--- NOTE | 2019-02-05 13:56 | Cardiac Electrophysiology PN ---
Assessment/Plan Assessment/Plan 1. Atrial fibrillation. On Coreg and off anticoagulation for thrombocytopenia 2. Status post Medtronic biventricular ICD. Nl Fx. No shocks 3. Congestive heart failure. BNP > 2700. EF 35%. On Coreg and Lisinopril 40 po daily 4. Severe hypernatremia and renal failure. On IV fluids per Dr. Wells. 5. Hypertension. On Coreg 6. S/P MRSA PNA off Abx 7. Altered mental status. 8. Thrombocytopenia. 9. Hx of CVA with dysphasia DW RN Subjective Subjective Comfortable in NAD. No events awaiting placement Objective Last 24 Hour Vital Signs Date Time Temp Pulse Resp B/P (MAP) Pulse Ox O2 Delivery O2 Flow Rate FiO2 02/05/19 09:19 Room Air 02/05/19 08:49 77 145/80 02/05/19 08:00 97.3 77 18 145/80 (101) 98 02/05/19 04:00 97.5 73 20 128/62 (84) 98 02/05/19 00:00 97.2 70 20 141/72 (95) 99 02/04/19 21:00 Room Air 02/04/19 20:00 97.2 71 20 135/81 (99) 99 02/04/19 16:00 97.5 68 20 110/85 (93) 96 Intake and Output 02/04/19 02/05/19 19:00 07:00 Intake Total 840 ml 650 ml Output Total 750 ml Balance 90 ml 650 ml Intake Oral 240 ml IV Total 600 ml 650 ml Output Urine Total 750 ml Laboratory Tests Test 02/05/19 06:30 Sodium Level 141 MMOL/L (136-145) Potassium Level 4.3 MMOL/L (3.5-5.1) Chloride Level 109 MMOL/L (98-107) H Carbon Dioxide Level 19 MMOL/L (21-32) L Anion Gap 13 mmol/L (5-15) Blood Urea Nitrogen 23 mg/dL (7-18) H Creatinine 1.8 MG/DL (0.55-1.30) H Estimat Glomerular Filtration Rate mL/min (>60) Glucose Level 147 MG/DL (74-106) H Uric Acid 7.6 MG/DL (2.6-7.2) H Calcium Level 9.0 MG/DL (8.5-10.1) Phosphorus Level 3.4 MG/DL (2.5-4.9) Magnesium Level 2.1 MG/DL (1.8-2.4) Total Bilirubin 0.6 MG/DL (0.2-1.0) Aspartate Amino Transf (AST/SGOT) 18 U/L (15-37) Alanine Aminotransferase (ALT/SGPT) 7 U/L (12-78) L Alkaline Phosphatase 93 U/L (46-116) Total Protein 6.4 G/DL (6.4-8.2) Albumin 2.6 G/DL (3.4-5.0) L Globulin 3.8 g/dL Albumin/Globulin Ratio 0.7 (1.0-2.7) L Objective HEAD AND NECK: Mild JVD. LUNGS: Decreased breath sounds. CARDIOVASCULAR: Irregular S1 and S2 with no gallop. ICD in left subclavian. ABDOMEN: Soft. EXTREMITIES: No pitting edema. Gabe Hi MD Feb 05, 2019 13:56
--- NOTE | 2019-02-05 14:50 | NUR ---
*-* DISCHARGE PLANNING *-* PATIENT HAS BEEN REFERRED TO: [facility] P:[phone] F:[phone]
--- NOTE | 2019-02-05 15:01 | General Progress Note ---
Assessment/Plan Assessment/Plan Note for 02/04/19 #Severe Sepsis -resolved #MSSA pneumonia, possibly due to aspiration -resolved #E. coli UTI s/p abx #Acute metabolic encephalopathy superimposed on severe dementia - improved #pseudomonas uti -cont cefepime x 7 days -aspiration precautions -pt pulled out NGT, cont liquify pureed, able to eat with / sons at bedside -discussed with and sons, does not want PEG #Hypernatremia -resolved -monitor BMP -Nephrology following #Hypomag #hypokalemia -REpleted -CTM #Chronic sCHF s/p AICD #Atrial fibrillation #HTN #CAD -HTN controlled -Continue Coreg -Cardiology eval appreciated -not on AC due to thrombocytopenia -off tele #Dispo -awaiting placement VTE PPx Heparin SC DNR/DNI I spent 45 min on this patients care, and 33 min was dedicated to counseling and /or care coordination Time of note may not represent time of encounter Subjective Date patient seen: Feb 04, 2019 Allergies: Coded Allergies: No Known Allergies (Unverified , 01/06/19) Subjective No acute overnight events, mental status improved, has no complaints, discussed with sons and , would like SNF near [place], discussed with cm, pending placement Objective Last 24 Hour Vital Signs Date Time Temp Pulse Resp B/P (MAP) Pulse Ox O2 Delivery O2 Flow Rate FiO2 02/05/19 12:00 98.6 70 18 128/73 (91) 98 02/05/19 09:19 Room Air 02/05/19 08:49 77 145/80 02/05/19 08:00 97.3 77 18 145/80 (101) 98 02/05/19 04:00 97.5 73 20 128/62 (84) 98 02/05/19 00:00 97.2 70 20 141/72 (95) 99 02/04/19 21:00 Room Air 02/04/19 20:00 97.2 71 20 135/81 (99) 99 02/04/19 16:00 97.5 68 20 110/85 (93) 96 Intake and Output 02/04/19 02/05/19 18:59 06:59 Intake Total 840 ml 600 ml Output Total 750 ml Balance 90 ml 600 ml Intake Oral 240 ml IV Total 600 ml 600 ml Output Urine Total 750 ml Laboratory Tests 02/05/19 06:30: Sodium Level 141, Potassium Level 4.3, Chloride Level 109H, Carbon Dioxide Level 19L, Anion Gap 13, Blood Urea Nitrogen 23H, Creatinine 1.8H, Estimat Glomerular Filtration Rate , Glucose Level 147H, Uric Acid 7.6H, Calcium Level 9.0, Phosphorus Level 3.4, Magnesium Level 2.1, Total Bilirubin 0.6, Aspartate Amino Transf (AST/SGOT) 18, Alanine Aminotransferase (ALT/SGPT) 7L, Alkaline Phosphatase 93, Total Protein 6.4, Albumin 2.6L, Globulin 3.8, Albumin/Globulin Ratio 0.7L Height (Feet): 5 Height (Inches): 2.00 Weight (Pounds): 200 Objective General: alert, cooperative, no distress, appears stated age Head: normocephalic, without obvious abnormality, atraumatic Eyes: conjunctivae/corneas clear. PERRL, EOM's intact Throat: lips, mucosa, and tongue normal. MMM Neck: supple, symmetrical, trachea midline, and no JVD Lungs: clear to auscultation bilaterally Heart: regular rate and rhythm, S1, S2 normal, no murmur, click, rub or gallop Abdomen: soft, non-tender, non-distended, bowel sounds normal; no masses or organomegaly Extremities: extremities normal, atraumatic, no cyanosis or edema Pulses: 2+ and symmetric Skin: skin color, texture, turgor normal; no rashes or lesions Neurologic: grossly normal, no focal deficits Tamanna Ontiveros MD Feb 05, 2019 15:01
--- NOTE | 2019-02-05 15:03 | General Progress Note ---
Assessment/Plan Assessment/Plan #Severe Sepsis -resolved #MSSA pneumonia, possibly due to aspiration -resolved #E. coli UTI s/p abx #Acute metabolic encephalopathy superimposed on severe dementia - improved #pseudomonas uti -cont cefepime x 7 days -aspiration precautions -pt pulled out NGT, cont liquify pureed, able to eat with / sons at bedside -discussed with and sons, does not want PEG #Hypernatremia -resolved -monitor BMP -Nephrology following #Hypomag #hypokalemia -REpleted -CTM #Chronic sCHF s/p AICD #Atrial fibrillation #HTN #CAD -HTN controlled -Continue Coreg -Cardiology eval appreciated -not on AC due to thrombocytopenia -off tele #Dispo -awaiting placement VTE PPx Heparin SC DNR/DNI I spent 45 min on this patients care, and 33 min was dedicated to counseling and /or care coordination Time of note may not represent time of encounter Subjective Date patient seen: Feb 05, 2019 ROS Limited/Unobtainable: Yes Allergies: Coded Allergies: No Known Allergies (Unverified , 01/06/19) All Systems: reviewed and negative except above Subjective No acute overnight events, mental status improved, has no complaints, discussed with sons and , would like SNF near [place], discussed with cm, pending placement Objective Last 24 Hour Vital Signs Date Time Temp Pulse Resp B/P (MAP) Pulse Ox O2 Delivery O2 Flow Rate FiO2 02/05/19 12:00 98.6 70 18 128/73 (91) 98 02/05/19 09:19 Room Air 02/05/19 08:49 77 145/80 02/05/19 08:00 97.3 77 18 145/80 (101) 98 02/05/19 04:00 97.5 73 20 128/62 (84) 98 02/05/19 00:00 97.2 70 20 141/72 (95) 99 02/04/19 21:00 Room Air 02/04/19 20:00 97.2 71 20 135/81 (99) 99 02/04/19 16:00 97.5 68 20 110/85 (93) 96 Intake and Output 02/04/19 02/05/19 18:59 06:59 Intake Total 840 ml 600 ml Output Total 750 ml Balance 90 ml 600 ml Intake Oral 240 ml IV Total 600 ml 600 ml Output Urine Total 750 ml Laboratory Tests 02/05/19 06:30: Sodium Level 141, Potassium Level 4.3, Chloride Level 109H, Carbon Dioxide Level 19L, Anion Gap 13, Blood Urea Nitrogen 23H, Creatinine 1.8H, Estimat Glomerular Filtration Rate , Glucose Level 147H, Uric Acid 7.6H, Calcium Level 9.0, Phosphorus Level 3.4, Magnesium Level 2.1, Total Bilirubin 0.6, Aspartate Amino Transf (AST/SGOT) 18, Alanine Aminotransferase (ALT/SGPT) 7L, Alkaline Phosphatase 93, Total Protein 6.4, Albumin 2.6L, Globulin 3.8, Albumin/Globulin Ratio 0.7L Height (Feet): 5 Height (Inches): 2.00 Weight (Pounds): 200 Objective General: alert, cooperative, no distress, appears stated age Head: normocephalic, without obvious abnormality, atraumatic Eyes: conjunctivae/corneas clear. PERRL, EOM's intact Throat: lips, mucosa, and tongue normal. MMM Neck: supple, symmetrical, trachea midline, and no JVD Lungs: clear to auscultation bilaterally Heart: regular rate and rhythm, S1, S2 normal, no murmur, click, rub or gallop Abdomen: soft, non-tender, non-distended, bowel sounds normal; no masses or organomegaly Extremities: extremities normal, atraumatic, no cyanosis or edema Pulses: 2+ and symmetric Skin: skin color, texture, turgor normal; no rashes or lesions Neurologic: grossly normal, no focal deficits Tamanna Ontiveros MD Feb 05, 2019 15:02
--- NOTE | 2019-02-05 15:22 | NUR ---
*-* INSURANCE *-* UPDATED REVIEWS HAVE BEEN FAXED TO: [facility]: ROCAEL F:[phone] P:[phone]
[2019-02-05 16:00] VITALS: BP 137/85
--- NOTE | 2019-02-05 16:13 | NUR ---
*-* DISCHARGE PLANNING *--* PATIENT HAS BEEN REFERRED TO: EMILE[facility] PINZON P:[phone] F:[phone]
[2019-02-05] MEDS: Vitamin D 50,000 units cap ORAL SCH (17:01)
--- NOTE | 2019-02-05 17:01 | General Progress Note ---
Assessment/Plan Assessment/Plan Assessment/Plan: # Severe Pancytopenia -- multiple etiologies could be related to underlying liver disease, medication-induced, infection versus viral syndrome, ID with abx now --> peripheral smear has been ordered and does not show significant abnormalities, however concerning Ca++ elevated --> SPEP is negative for bands --> Continue to monitor for improvement, trend cbc --> Hep panel and HIV are both negative --> US abd ordered to r/o cirrhosis and hepatosplenomegaly does not show it --> consider other causes, infections that could contribute --> reverse isolation if ANC is <2000 --> Give neupogen if ANC <1000 --> Transfuse if hgb <7, with 1 unit prbc --> plts have improved, thus was likely reactive process --> igA and tissue trans IgA are negative, thus LESS LIKELY SPRUE disease # Coagulation defect, unspecified (D68.9) aka coagulopathy, multifactorial usually related to poor PO intake versus medications, versus hepatitis v cirrhosis --> administer Vitamin K if patient is bleeding or FFP if the INR is >10 --> hold off on ffp unless active procedure/bleeding, first begin with vit K 10 --> mixing study as needed # Severe Sepsis woth likely hcap --> on abx as per ID team --> 3/ is last day of abx --> currently restarted on abx as per id # Acute metabolic encephalopathy superimposed on severe dementia --> check blood cultures, lactate prn, and PCT --> appreciate id recs # Hypernatremia --> on fluids as per nephro # Chronic sCHF s/p AICD --> off anticoagulation, reviewed recs of Dr. Hi --> okay to restart anticoag given potentially benefit outweighs risk as per cards --> appreciate cardiology recs # Atrial fibrillation # VINH --> currently improving The timing of this note does not necessarily reflect the time of the patient was seen. Greatly appreciate consultation! Subjective Constitutional: Denies: no symptoms, chills, diaphoresis, fever, malaise, weakness, other HEENT: Denies: no symptoms, eye pain, blurred vision, tearing, double vision, ear pain, ear discharge, nose pain, nose congestion, throat pain, throat swelling, mouth pain, mouth swelling, other Cardiovascular: Denies: no symptoms, chest pain, edema, irregular heart rate, lightheadedness, palpitations, syncope, other Respiratory: Denies: no symptoms, cough, orthopnea, shortness of breath, SOB with excertion, SOB at rest, sputum, stridor, wheezing, other Gastrointestinal/Abdominal: Denies: no symptoms, abdomen distended, abdominal pain, black stools, tarry stools, blood in stool, constipated, diarrhea, difficulty swallowing, nausea, poor appetite, poor fluid intake, rectal bleeding , vomiting, other Genitourinary: Denies: no symptoms, burning, discharge, frequency, flank pain, hematuria, incontinence, pain, urgency, other Neurologic/Psychiatric: Denies: no symptoms, anxiety, depressed, emotional problems, headache, numbness, paresthesia, pre-existing deficit, seizure, tingling, tremors, weakness, other Endocrine: Denies: no symptoms, excessive sweating, flushing, intolerance to cold, intolerance to heat, increased hunger, increased thirst, increased urine, unexplained weight gain, unexplained weight loss, other Hematologic/Lymphatic: Denies: no symptoms, anemia, easy bleeding, easy bruising, other Allergies: Coded Allergies: No Known Allergies (Unverified , 01/06/19) Subjective 01/08: pending lab workup, us of the abd pending, spep and dic panel pending 01/10: Seen by bedside, remains lethargic, no acute distress, plt remains low at 46 01/11: resting in bed, no acute distress, plt trending down 38 01/12: awake, comfortable, no acute distress noted, plt trending up 01/13: seen by bedside, awake, comfortable, no acute distress. 01/14: NG tube insertion, Pt is lethargic, plt trending up, hgb 7.7 01/15: lethargic, on 2L NC, no events, pending cbc today 01/17: plts are up trending, hgb 7.6, no events 01/18: seen by bedside, hgb 7.6, plt trending up, no events 01/20: out of the icu, completing abx today, feeling better, plt better 01/21: seen by bedside, awake, comfortable, plt trending up , hgb 7.8 01/22: Pt is awake, comfortable, no acute distress reported 01/24: awake, comfortable, no events reported, at bedside 01/25: Pt resting in bed, no distress reported, pending labs 3: resting in bed, comfortable, no events 01/27: awake, comfortable, no acute distress reported. 01/28: resting in bed, no events 01/29:awake, comfortable, no acute distress. 01/31: seen by bedside, no events 02/01: no events noted, no fevers or chills, cbc better 02/02: no fevers or chills, plt count 95k, 02/03: resting in bed, no events reported 02/04: pendleton remains in place, with iv line, alert x1, no other changes 02/05: trending plts, slightly lower Objective Last 24 Hour Vital Signs Date Time Temp Pulse Resp B/P (MAP) Pulse Ox O2 Delivery O2 Flow Rate FiO2 02/05/19 16:00 98.2 71 20 137/85 (102) 98 02/05/19 12:00 98.6 70 18 128/73 (91) 98 02/05/19 09:19 Room Air 02/05/19 08:49 77 145/80 02/05/19 08:00 97.3 77 18 145/80 (101) 98 02/05/19 04:00 97.5 73 20 128/62 (84) 98 02/05/19 00:00 97.2 70 20 141/72 (95) 99 02/04/19 21:00 Room Air 02/04/19 20:00 97.2 71 20 135/81 (99) 99 Intake and Output 02/04/19 02/05/19 18:59 06:59 Intake Total 840 ml 600 ml Output Total 750 ml Balance 90 ml 600 ml Intake Oral 240 ml IV Total 600 ml 600 ml Output Urine Total 750 ml Laboratory Tests 02/05/19 06:30: Sodium Level 141, Potassium Level 4.3, Chloride Level 109H, Carbon Dioxide Level 19L, Anion Gap 13, Blood Urea Nitrogen 23H, Creatinine 1.8H, Estimat Glomerular Filtration Rate , Glucose Level 147H, Uric Acid 7.6H, Calcium Level 9.0, Phosphorus Level 3.4, Magnesium Level 2.1, Total Bilirubin 0.6, Aspartate Amino Transf (AST/SGOT) 18, Alanine Aminotransferase (ALT/SGPT) 7L, Alkaline Phosphatase 93, Total Protein 6.4, Albumin 2.6L, Globulin 3.8, Albumin/Globulin Ratio 0.7L Height (Feet): 5 Height (Inches): 2.00 Weight (Pounds): 200 Objective PE General Appearance: lethargic ++2l NC Lines, tubes and drains: peripheral HEENT: normocephalic, atraumatic. NG tube insertion Neck: normal alignment Respiratory/Chest: lungs clear, normal breath sounds Cardiovascular/Chest: normal peripheral pulses, normal rate Abdomen: non tender, soft, no organomegaly Extremities: non-tender, normal inspection : Blane Peralta MD Feb 05, 2019 17:01
--- NOTE | 2019-02-05 17:17 | NUR ---
BATTERY PLATE REMOVER NOTES SPOKE WITH BEKAH FROM [facility], PT ACCEPTED, ALL DME TO BE DELIVERED TO HOME IN AM. OK TO DC PT HOME WHEN DME HAS ARRIVED. [facility] IS IN AGREEMENT WITH DC AT THIS TIME. NURSE TO CALL AMBULANCE TO TRANSPORT PT HOME. [facility] [phone] [place] [address] [phone]
--- NOTE | 2019-02-05 19:22 | NUR ---
HAND-OFF: Report given to RADAMES henderson.
--- NOTE | 2019-02-05 19:22 | NUR ---
NURSE NOTES: Patient alert x1, asleep at this time, on room air, no sign of shortness of breath; no sign of distress; Bowens in place, patent, draining yellow urine; IV PICC on R-Upper arm, fluid running; side rails up x2, Bed locked, in lowest position. Bed alarm on. Will keep monitoring patient.
[2019-02-05 20:00] VITALS: BP 151/94
[2019-02-05] MEDS: Dyna-Hex 2% Top Sol 2oz TOPIC SCH (22:36)
[2019-02-06] VITALS: BP 144/92
[2019-02-06] MEDS: D5NS 1,000 ML IV SCH (03:44)
[2019-02-06 04:00] VITALS: BP 133/84
--- NOTE | 2019-02-06 07:30 | NUR ---
NURSE NOTES: Received pt from RADAMES BUCIO. Pt is confused and orient x1. pt is in RA. No SOB or acute respiratory distress noted. Pt has Bowens cath in place is running well. pt has PICC VENESSA is running well. all needs attended, bed is locked and is in the lowest position. call light within easy reach. will continue to monitor.
--- NOTE | 2019-02-06 07:35 | NUR ---
HAND-OFF: Report given to RADAMES Dale.
[2019-02-06 08:00] VITALS: BP 126/84
[2019-02-06] MEDS: Tamsulosin 0.4mg cap ORAL SCH (09:07)
[2019-02-06] MEDS: Carvedilol 12.5mg tab ORAL SCH (09:07)
[2019-02-06] MEDS: Furosemide 40mg tab ORAL SCH (09:07)
[2019-02-06] MEDS ORDERED: FUROSEMIDE40 MG ORAL (10:42)
[2019-02-06] MEDS ORDERED: VITAMIN D250000 UNI1 ORAL (10:42)
[2019-02-06] MEDS ORDERED: COREG12.5 MG ORAL (10:42)
[2019-02-06] MEDS ORDERED: FLOMAX0.4 MG ORAL (10:42)
--- NOTE | 2019-02-06 10:45 | Discharge Instructions ---
Discharge Instructions Discharge Instructions Follow up with: hospice nurse Services at Discharge: hospice Diet: full liquid Resume Normal Activity?: Yes Activity: as tolerated For Congestive Heart Failure Reminder Report to your physician any weight gain of 5 pounds or more in one week. Tamanna Ontiveros MD Feb 06, 2019 10:45
[2019-02-06 12:00] VITALS: BP 121/80
--- NOTE | 2019-02-06 12:06 | NUR ---
CASE MANAGEMENT:DCPNOTE UPON DISCHARGE PATIENT WILL TRANSFER TO HOME VIA [facility] ETA 14:00 PER [facility] [phone] HOME AD[address]ESS [address] [place] [address] [place] [address]
--- NOTE | 2019-02-06 14:10 | Infectious Diseases Prog Note ---
Assessment/Plan Assessment/Plan ASSESSMENT AND PLAN: 1. pseudomonas uti, hx e.coli uti, hx staph aureus pna/MSSA, hx sepsis - cefepime - -finish 7 day course, no need for further abx - f/u on labs, monitor chest x-ray as indicated - clinically stable - communicated with Dr. Ontiveros about abx - stable from ID standpoint 2. The patient has severe hypernatremia. 3. Dehydration. 4. Acute kidney injury. 5. Elevated creatinine. 6. Intravenous fluids. 7. Hypothermia. 8. Pancytopenia. Workup per Hematology/Oncology. 9. Hypertension. 10. Coronary artery disease. 11. Congestive heart failure. 12. Automatic implanted cardioverter. 13. Subdural hematoma. 14. Severe dementia. 15. Aspiration risk. 16. No known drug allergies. 17. Social history is negative. 18. Family history is noncontributory. 19. MAR was noted. 20. Case was discussed with RN. 21. Encephalopathy. 22. Skin care protocol. 23. The patient is DNR/DNI. 24. aspiration precautions 25. mrsa colonization 26. wound care per protocol - sacral wound noted and not acutely infected Subjective Constitutional: Reports: fatigue, other - weak and lethargic ; Denies: fever Respiratory: Denies: shortness of breath Cardiovascular: Denies: chest pain Gastrointestinal/Abdominal: Denies: nausea, vomiting, diarrhea Genitourinary: Reports: other - + pendleton - urine slt cloudy Psychiatric: Denies: depression Skin: Denies: rash Hematologic: Denies: bleeding Musculoskeletal: Denies: pain Allergies: Coded Allergies: No Known Allergies (Unverified , 01/06/19) Objective Vital Signs Last 24 Hour Vital Signs Date Time Temp Pulse Resp B/P (MAP) Pulse Ox O2 Delivery O2 Flow Rate FiO2 02/06/19 12:00 98.1 72 19 121/80 (94) 99 02/06/19 09:07 71 126/84 02/06/19 09:00 Room Air 02/06/19 08:00 97.9 71 18 126/84 (98) 100 02/06/19 04:00 97.2 72 18 133/84 (100) 99 02/06/19 00:00 97.5 76 19 144/92 (109) 99 02/05/19 22:36 83 151/94 02/05/19 21:00 Room Air 02/05/19 20:00 97.4 83 19 151/94 (113) 96 02/05/19 16:00 98.2 71 20 137/85 (102) 98 Height (Feet): 5 Height (Inches): 2.00 Weight (Pounds): 200 General Appearance: no acute distress HEENT: normocephalic, atraumatic, anicteric, mucous membranes moist Respiratory/Chest: lungs clear, normal breath sounds, no respiratory distress, no accessory muscle use Cardiovascular: normal rate, regular rhythm, no gallop/murmur, no JVD Abdomen: normal bowel sounds, soft, non tender, no organomegaly, non distended Genitourinary: other - + pendleton - urine slt cloudy Extremities: no cyanosis Skin: no rash 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 Surgical clips are seen in the left axilla. The heart is borderline enlarged. The lungs demonstrate possible hazy infiltrate in left perihilar region Impression: Possible left perihilar infiltrate Borderline cardiomegaly Other findings as noted 01/12 - chest x-ray - Comparison: 01/10/2019 Findings: The heart is enlarged. There is patchy parenchymal opacity in the left suprahilar region which is not evident previously. There is equivocal minimal interstitial congestive change. The lungs and pleural spaces are otherwise grossly clear, although a pacemaker obscures much of the left lung. Surgical clips are seen in the left chest wall Impression: New or increased patchy left suprahilar opacity Equivocal minimal interstitial congestion Chest x-ray - 01/14/19 - Findings: Again demonstrated is a left chest AICD with epicardial leads. Surgical clips are seen in the left axilla. The heart is enlarged. The lungs and pleural spaces are clear. There is a right arm PICC Impression: No acute process Cardiomegaly Other findings as noted Chest x-ray - 01/21/19 Findings: Left chest AICD, right arm PICC again demonstrated. Interim development of small left pleural effusion. There may be some hazy infiltrate developing in the left perihilar region, although this is largely obscured by the pacemaker. The heart is enlarged.. Impression: New small left pleural effusion Possible left perihilar hazy infiltrate, also new 01/23/19 - FINDINGS: Lungs: Mild vascular congestion. No consolidation. Pleural space: Tiny bilateral pleural effusions. No pneumothorax. Heart: Cardiomegaly. Mediastinum: Unremarkable. Bones/joints: Unremarkable. Soft tissues: Left axillary surgical clips. Tubes, lines and devices: Cardiac pacemaker. Stable right PICC line. IMPRESSION: Mild vascular and interstitial congestion with tiny bilateral pleural effusions. Slightly worsening CHF. Microbiology Date/Time Source Procedure Growth Status 01/06/19 17:25 Blood Blood Culture - Final NO GROWTH AFTER 5 DAYS Complete 01/08/19 07:00 Sputum Induced Gram Stain - Final Complete 01/08/19 07:00 Sputum Culture - Final Staphylococcus Aureus Complete 01/29/19 16:15 Urine,Clean Catch Urine Culture - Final Pseudomonas Aeruginosa Complete 01/06/19 18:10 Rectum VRE Culture - Final NO VANCOMYCIN RESISTANT ENTEROCOCCUS ... Complete 01/06/19 18:10 Rectum - Final NO CARBAPENEM-RESISTANT ENTEROBACTERI... Complete Labs Test 02/04/19 06:11 02/05/19 06:30 White Blood Count 5.0 K/UL (4.8-10.8) Red Blood Count 2.93 M/UL (4.20-5.40) Hemoglobin 9.3 G/DL (12.0-16.0) Hematocrit 30.5 % (37.0-47.0) Mean Corpuscular Volume 104 FL (80-99) Mean Corpuscular Hemoglobin 31.6 PG (27.0-31.0) Mean Corpuscular Hemoglobin Concent 30.3 G/DL (32.0-36.0) Red Cell Distribution Width 17.6 % (11.6-14.8) Platelet Count 88 K/UL (150-450) Mean Platelet Volume 7.7 FL (6.5-10.1) Neutrophils (%) (Auto) % (45.0-75.0) Lymphocytes (%) (Auto) % (20.0-45.0) Monocytes (%) (Auto) % (1.0-10.0) Eosinophils (%) (Auto) % (0.0-3.0) Basophils (%) (Auto) % (0.0-2.0) Differential Total Cells Counted 100 Neutrophils % (Manual) 82 % (45-75) Lymphocytes % (Manual) 12 % (20-45) Monocytes % (Manual) 5 % (1-10) Eosinophils % (Manual) 1 % (0-3) Basophils % (Manual) 0 % (0-2) Band Neutrophils 0 % (0-8) Platelet Estimate Decreased Platelet Morphology Normal Anisocytosis 1+ Tear Drop Cells 1+ Ovalocytes 1+ Acanthocytes 1+ Sodium Level 141 MMOL/L (136-145) Potassium Level 4.3 MMOL/L (3.5-5.1) Chloride Level 109 MMOL/L (98-107) Carbon Dioxide Level 19 MMOL/L (21-32) Anion Gap 13 mmol/L (5-15) Blood Urea Nitrogen 23 mg/dL (7-18) Creatinine 1.8 MG/DL (0.55-1.30) Estimat Glomerular Filtration Rate mL/min (>60) Glucose Level 147 MG/DL (74-106) Uric Acid 7.6 MG/DL (2.6-7.2) Calcium Level 9.0 MG/DL (8.5-10.1) Phosphorus Level 3.4 MG/DL (2.5-4.9) Magnesium Level 2.1 MG/DL (1.8-2.4) Total Bilirubin 0.6 MG/DL (0.2-1.0) Aspartate Amino Transf (AST/SGOT) 18 U/L (15-37) Alanine Aminotransferase (ALT/SGPT) 7 U/L (12-78) Alkaline Phosphatase 93 U/L (46-116) Total Protein 6.4 G/DL (6.4-8.2) Albumin 2.6 G/DL (3.4-5.0) Globulin 3.8 g/dL Albumin/Globulin Ratio 0.7 (1.0-2.7) Current Medications Medications (Trade) Dose Ordered Sig/Nuria Route PRN Reason Start Time Stop Time Status Last Admin Dose Admin Carvedilol (Coreg) 12.5 mg EVERY 12 HOURS ORAL 01/31/19 21:00 02/12/19 20:59 02/06/19 09:07 Cefepime HCl 1 gm/ Dextrose 50 ml @ 100 mls/hr Q24H IVPB 01/31/19:00 02/07/19 16:59 02/05/19 17:13 Chlorhexidine Gluconate (Kaylee-Hex 2%) 1 applic DAILY@2000 TOPIC 01/13/19 20:00 02/12/19 19:59 02/05/19 22:36 Dextrose/Sodium Chloride 1,000 ml @ 50 mls/hr Q20H IV 02/02/19 16:45 03/04/19 16:44 02/06/19 03:44 Ergocalciferol (Drisdol) 50,000 intlu QWEEK ORAL 01/29/19 16:00 02/28/19 15:59 01/29/19 19:51 Famotidine (Pepcid) 20 mg BID ORAL 01/23/19 18:00 02/22/19 17:59 02/06/19 09:07 Furosemide (Lasix) 40 mg DAILY ORAL 02/04/19 09:00 03/06/19 08:59 02/06/19 09:07 Tamsulosin HCl (Flomax) 0.4 mg Q12HR ORAL 01/30/19 21:00 03/01/19 20:59 02/06/19 09:07 Ninfa Vences MD Feb 06, 2019 14:10
[2019-02-06] MEDS ORDERED: D5NS 1000ml IV ONE (14:29)
--- NOTE | 2019-02-06 14:30 | NUR ---
NURSE NOTES: Received discharge order. all discharge instructions and assessments done. pt is stable. V/S stable. pt's is aware that pt is going home with [facility] PH: [phone]. confirmed hospice ready home for transferring pt. Dr vasquez ordered to keep Bowens cath and D/C PICC. noted and carried out. all pictures took from wounds and wound treatment done as order. is called and is aware about all discharge instructions and verbally confirmed to understand all. pt left hospital with accompany of ambulance personnel. Addendum: 02/06/19 at 1724 by Chito Voss RN PICC was D/C by charge nurse CASEY.
--- NOTE | 2019-02-06 14:50 | General Progress Note ---
Assessment/Plan Assessment/Plan Assessment/Plan: # Severe Pancytopenia -- multiple etiologies could be related to underlying liver disease, medication-induced, infection versus viral syndrome, ID with abx now --> peripheral smear has been ordered and does not show significant abnormalities, however concerning Ca++ elevated --> SPEP is negative for bands --> Continue to monitor for improvement, trend cbc --> Hep panel and HIV are both negative --> US abd ordered to r/o cirrhosis and hepatosplenomegaly does not show it --> consider other causes, infections that could contribute --> reverse isolation if ANC is <2000 --> Give neupogen if ANC <1000 --> Transfuse if hgb <7, with 1 unit prbc --> plts have improved, thus was likely reactive process --> igA and tissue trans IgA are negative, thus LESS LIKELY SPRUE disease # Coagulation defect, unspecified (D68.9) aka coagulopathy, multifactorial usually related to poor PO intake versus medications, versus hepatitis v cirrhosis --> administer Vitamin K if patient is bleeding or FFP if the INR is >10 --> hold off on ffp unless active procedure/bleeding, first begin with vit K 10 --> mixing study as needed # Severe Sepsis woth likely hcap --> on abx as per ID team --> 3/ is last day of abx --> currently restarted on abx as per id # Acute metabolic encephalopathy superimposed on severe dementia --> check blood cultures, lactate prn, and PCT --> appreciate id recs # Hypernatremia --> on fluids as per nephro # Chronic sCHF s/p AICD --> off anticoagulation, reviewed recs of Dr. Hi --> okay to restart anticoag given potentially benefit outweighs risk as per cards --> appreciate cardiology recs # Atrial fibrillation # VINH --> currently improving The timing of this note does not necessarily reflect the time of the patient was seen. Greatly appreciate consultation! Subjective Constitutional: Denies: no symptoms, chills, diaphoresis, fever, malaise, weakness, other HEENT: Denies: no symptoms, eye pain, blurred vision, tearing, double vision, ear pain, ear discharge, nose pain, nose congestion, throat pain, throat swelling, mouth pain, mouth swelling, other Cardiovascular: Denies: no symptoms, chest pain, edema, irregular heart rate, lightheadedness, palpitations, syncope, other Respiratory: Denies: no symptoms, cough, orthopnea, shortness of breath, SOB with excertion, SOB at rest, sputum, stridor, wheezing, other Gastrointestinal/Abdominal: Denies: no symptoms, abdomen distended, abdominal pain, black stools, tarry stools, blood in stool, constipated, diarrhea, difficulty swallowing, nausea, poor appetite, poor fluid intake, rectal bleeding , vomiting, other Genitourinary: Denies: no symptoms, burning, discharge, frequency, flank pain, hematuria, incontinence, pain, urgency, other Neurologic/Psychiatric: Denies: no symptoms, anxiety, depressed, emotional problems, headache, numbness, paresthesia, pre-existing deficit, seizure, tingling, tremors, weakness, other Endocrine: Denies: no symptoms, excessive sweating, flushing, intolerance to cold, intolerance to heat, increased hunger, increased thirst, increased urine, unexplained weight gain, unexplained weight loss, other Allergies: Coded Allergies: No Known Allergies (Unverified , 01/06/19) Subjective 01/08: pending lab workup, us of the abd pending, spep and dic panel pending 01/10: Seen by bedside, remains lethargic, no acute distress, plt remains low at 46 01/11: resting in bed, no acute distress, plt trending down 38 01/12: awake, comfortable, no acute distress noted, plt trending up 01/13: seen by bedside, awake, comfortable, no acute distress. 01/14: NG tube insertion, Pt is lethargic, plt trending up, hgb 7.7 01/15: lethargic, on 2L NC, no events, pending cbc today 01/17: plts are up trending, hgb 7.6, no events 01/18: seen by bedside, hgb 7.6, plt trending up, no events 01/20: out of the icu, completing abx today, feeling better, plt better 01/21: seen by bedside, awake, comfortable, plt trending up , hgb 7.8 01/22: Pt is awake, comfortable, no acute distress reported 01/24: awake, comfortable, no events reported, at bedside 01/25: Pt resting in bed, no distress reported, pending labs 3: resting in bed, comfortable, no events 01/27: awake, comfortable, no acute distress reported. 01/28: resting in bed, no events 01/29:awake, comfortable, no acute distress. 01/31: seen by bedside, no events 02/01: no events noted, no fevers or chills, cbc better 02/02: no fevers or chills, plt count 95k, 02/03: resting in bed, no events reported 02/04: pendleton remains in place, with iv line, alert x1, no other changes 02/05: trending plts, slightly lower 02/06: to be discharged today with hospice, seen by id, closely monitor as outpatient per pcp Objective Last 24 Hour Vital Signs Date Time Temp Pulse Resp B/P (MAP) Pulse Ox O2 Delivery O2 Flow Rate FiO2 02/06/19 12:00 98.1 72 19 121/80 (94) 99 02/06/19 09:07 71 126/84 02/06/19 09:00 Room Air 02/06/19 08:00 97.9 71 18 126/84 (98) 100 02/06/19 04:00 97.2 72 18 133/84 (100) 99 02/06/19 00:00 97.5 76 19 144/92 (109) 99 02/05/19 22:36 83 151/94 02/05/19 21:00 Room Air 02/05/19 20:00 97.4 83 19 151/94 (113) 96 02/05/19 16:00 98.2 71 20 137/85 (102) 98 Intake and Output 02/05/19 02/06/19 19:00 07:00 Intake Total 1000 ml 500 ml Output Total 701 ml 300 ml Balance 299 ml 200 ml Intake Oral 600 ml IV Total 400 ml 500 ml Output Urine Total 700 ml 300 ml Stool Total 1 ml Height (Feet): 5 Height (Inches): 2.00 Weight (Pounds): 200 Objective PE General Appearance: lethargic ++2l NC Lines, tubes and drains: peripheral HEENT: normocephalic, atraumatic. NG tube insertion Neck: normal alignment Respiratory/Chest: lungs clear, normal breath sounds Cardiovascular/Chest: normal peripheral pulses, normal rate Abdomen: non tender, soft, no organomegaly Extremities: non-tender, normal inspection : Blane Peralta MD Feb 06, 2019 14:50
--- NOTE | 2019-02-06 16:07 | Nephrology Progress Note ---
Assessment/Plan Problem List: (1) Acute renal failure Assessment: cr up 1.8 (2) Urinary outflow obstruction (3) Dehydration (4) Hypernatremia (5) Anemia Assessment: worsening Assessment acute Renal Failure Cr 1.7 Sepsis / UTI / Pneumonia Acute metabolic Encephalopathy Hypernatremia AICD AT FIB CAD HTN presents with Low BP Anemia DNR DNI Plan poor po, need tube feeding !? pendleton IV fluids , slow hydration UTI Flomax k & Phos as needed watch for chf hold mind altering meds pepcid DC Motrin !!! Dc planning in process Subjective ROS Limited/Unobtainable: No Interval Events/Complaints seen at 11 am Constitutional: Reports: malaise Objective Objective Last 24 Hour Vital Signs Date Time Temp Pulse Resp B/P (MAP) Pulse Ox O2 Delivery O2 Flow Rate FiO2 02/06/19 12:00 98.1 72 19 121/80 (94) 99 02/06/19 09:07 71 126/84 02/06/19 09:00 Room Air 02/06/19 08:00 97.9 71 18 126/84 (98) 100 02/06/19 04:00 97.2 72 18 133/84 (100) 99 02/06/19 00:00 97.5 76 19 144/92 (109) 99 02/05/19 22:36 83 151/94 02/05/19 21:00 Room Air 02/05/19 20:00 97.4 83 19 151/94 (113) 96 Intake and Output 02/05/19 02/06/19 19:00 07:00 Intake Total 1000 ml 500 ml Output Total 701 ml 300 ml Balance 299 ml 200 ml Intake Oral 600 ml IV Total 400 ml 500 ml Output Urine Total 700 ml 300 ml Stool Total 1 ml Height (Feet): 5 Height (Inches): 2.00 Weight (Pounds): 200 General Appearance: no apparent distress Objective no change Noe Wells MD Feb 06, 2019 16:07
--- NOTE | 2019-02-08 14:53 | Discharge Summary ---
Discharge Summary Hospital Course Date of Admission Jan 06, 2019 at 17:50 Date of Discharge Feb 06, 2019 at 14:30 Admitting Diagnosis Sepsis, dehydration HPI Corry Larson is a 78 year old female who was admitted on Jan 06, 2019 at 17: 50 for Sepsis/Dehydration Consultations Cardiology, Hematology, nephrology, ID Hospital Course 78 year old female with multiple comorbidities was admitted to medicine service for management of severe sepsis and acute metabolic encephalopathy 2/2 MSSA penumonia. Pt evaluated by ID and completed course of antibiotics. During hospital course pt also noted to have electrolyte imbalances, evaluated and managed by nephrology. Pt also treated for pseudomonas UTI with cefepime. Pt had NGT placed for feeding, however pt pulled it out, and family did not want to replace, also does not want PEG placement, pt able to eat liquified pureed. Pt was evaluated by cardiology for management of CHF and atrial fibrillation. Due to pts clinical course and poor prognosis, family has decided to make pt comfort care and pt was discharged home with hospice. Physical exam prior to discharge General: alert, cooperative, no distress, appears stated age Head: normocephalic, without obvious abnormality, atraumatic Eyes: conjunctivae/corneas clear. PERRL, EOM's intact Throat: lips, mucosa, and tongue normal. MMM Neck: supple, symmetrical, trachea midline, and no JVD Lungs: clear to auscultation bilaterally Heart: regular rate and rhythm, S1, S2 normal, no murmur, click, rub or gallop Abdomen: soft, non-tender, non-distended, bowel sounds normal; no masses or organomegaly Extremities: extremities normal, atraumatic, no cyanosis or edema Pulses: 2+ and symmetric Skin: skin color, texture, turgor normal; no rashes or lesions Neurologic: grossly normal, no focal deficits Diagnosis: #Severe Sepsis -resolved #MSSA pneumonia, possibly due to aspiration -resolved #E. coli UTI s/p abx #Acute metabolic encephalopathy superimposed on severe dementia - improved #pseudomonas uti #Hypernatremia #Hypomag #hypokalemia #Chronic sCHF s/p AICD #Atrial fibrillation #HTN #CAD I spent 35 min on discharge planning. Time of note may not represent time of encounter Discharge Medications New Medications: Carvedilol (Coreg) 12.5 Mg Tablet 12.5 MG ORAL EVERY 12 HOURS for 30 Days, #60 TAB 0 Refills Ergocalciferol (Vitamin D2)* (Vitamin D*) 50,000 Unit Capsule 47825 INTLU ORAL QWEEK for 30 Days, #4 CAP 0 Refills Furosemide* (Lasix*) 40 Mg Tablet 40 MG ORAL DAILY for 30 Days, #30 TAB Tamsulosin HCl (Flomax) 0.4 Mg Cap.er.24h 0.4 MG ORAL Q12HR for 30 Days, #30 CAP 0 Refills Continued Medications: Escitalopram Oxalate* (Lexapro*) 10 Mg Tablet 10 MG ORAL DAILY, TAB (This prescription has been renewed) Ibuprofen* (Motrin*) 600 Mg Tablet 800 MG ORAL THREE TIMES A DAY PRN for Per rx protocol, TAB 0 Refills (This prescription has been renewed) Discontinued Medications: Atorvastatin Calcium* (Lipitor*) 10 Mg Tablet 10 MG ORAL DAILY, #30 TAB 0 Refills Carvedilol* (Carvedilol*) 25 Mg Tablet 25 MG ORAL BID, TAB Donepezil Hcl* (Aricept*) 10 Mg Tablet 10 MG ORAL QHS, TAB Furosemide* (Lasix*) 40 Mg Tablet 40 MG ORAL DAILY, TAB Isosorbide Mononitrate (Isosorbide Mononitrate Er) 60 Mg Tab.er.24h 60 MG PO BID, TAB Quetiapine Fumarate* (Seroquel*) 25 Mg Tablet 25 MG ORAL THREE TIMES A DAY, TAB Discharge Condition Upon Discharge: grave Discharge Disposition Patient was discharged to Home with Hospice (50) Discharge Instructions Discharge Instructions Follow up with: hospice nurse Services Upon Discharge: hospice Activity: as tolerated Tamanna Ontiveros MD Feb 08, 2019 14:53
== END 2019-02-06 14:30 | disposition hospice, home (50) | DRG 871 ==
LOC: EDBD 16:25 → EMR 16:58 → 2W 17:50 → EDBEDREQ 19:28 → EDBEDREQTM 19:28 → EDBEDREQSVC 19:28 → EDBEDREQ 20:42 → 2E 01-08 14:32 → 4E 01-13 03:15
DX: A41.01 Sepsis due to Methicillin susceptible Staphylococcus aureus (principal); G93.41 Metabolic encephalopathy; J15.211 Pneumonia due to Methicillin susceptible Staphylococcus aureus; J69.0 Pneumonitis due to inhalation of food and vomit; N17.9 Acute kidney failure, unspecified; E87.1 Hypo-osmolality and hyponatremia; I50.22 Chronic systolic (congestive) heart failure; D61.818 Other pancytopenia; D68.9 Coagulation defect, unspecified; N39.0 Urinary tract infection, site not specified; E87.0 Hyperosmolality and hypernatremia; R65.20 Severe sepsis without septic shock; I11.0 Hypertensive heart disease with heart failure; Z66 Do not resuscitate; F03.90 Unspecified dementia, unspecified severity, without behavioral disturbance, psychotic disturbance, mood disturbance, and anxiety; I25.10 Atherosclerotic heart disease of native coronary artery without angina pectoris; Z95.810 Presence of automatic (implantable) cardiac defibrillator; R68.0 Hypothermia, not associated with low environmental temperature; Y95 Nosocomial condition; I48.91 Unspecified atrial fibrillation; E86.0 Dehydration; D69.6 Thrombocytopenia, unspecified; B96.20 Unspecified Escherichia coli [E. coli] as the cause of diseases classified elsewhere; B96.5 Pseudomonas (aeruginosa) (mallei) (pseudomallei) as the cause of diseases classified elsewhere; E83.42 Hypomagnesemia; E87.6 Hypokalemia; I69.921 Dysphasia following unspecified cerebrovascular disease; N13.9 Obstructive and reflux uropathy, unspecified
CPT/HCPCS: 36415; 36569; 70450; 71045; 74018; 76700; 76937; 80048; 80053; 80061; 80076; 80202; 81001; 81003; 82105; 82140; 82378; 82533; 82550; 82553; 82607; 82728; 82746; 82784; 82977; 83010; 83516; 83540; 83550; 83605; 83615; 83690; 83735; 83880; 83921; 83935; 84100; 84165; 84238; 84295; 84300; 84443; 84484; 84550; 85007; 85025; 85044; 85060; 85384; 85610; 85660; 85730; 86140; 86300; 86304; 86703; 86705; 86709; 86803; 86850; 86900; 86901; 87040; 87070; 87081; 87086; 87181; 87205; 87340; 93005; 93306; 94760; 96360; 99285; C9399; J8499